=== PATIENT | female | born 1955 | race Two or more races ===

== ENCOUNTER → 2020-02-09 13:20 | Outpatient (BNVA) | payer MEDICAID, SELFPAY | PROVIDERS: PCP Family Medicine; Referring Provider Family Medicine; Visit Provider Internal Medicine | DX: I49.3 Ventricular premature depolarization (principal); R00.2 Palpitations; R07.2 Precordial pain | CPT/HCPCS: 93005; 99212 ==

== ENCOUNTER → 2020-02-17 07:50 | Outpatient (REF) | payer MEDICAID, SELFPAY ==
--- NOTE | 2020-02-17 | NM_ITS ---
EXERCISE MYOCARDIAL PERFUSION STUDY INDICATION: Chest pain, PVCs, assess for coronary disease ischemia TECHNIQUE: The patient was brought in for an exercise perfusion study on 02/17/2020. Patient performed exercise as per Sarbjit protocol and was injected 30 mCi of sestamibi once target heart rate was achieved. Images were obtained using the SPECT gamma camera interlaced with the gating device. Images were obtained in supine position. Resting perfusion study was performed on 02/20/2020. Patient was administered 30 mCi of sestamibi intravenously at rest. Images were then obtained in supine position. Total DLP 92mGy-cm. Images were processed with the software and compared side to side in short axis, horizontal long axis and vertical long axis views. FINDINGS: Raw images were reviewed. The stress perfusion study showed mildly diminished tracer uptake in the distal anterolateral wall. With CT attenuation correction, this improves significantly suggestive of soft tissue attenuation artifact. Gating not done during stress due to PVCs. Resting study shows no significant perfusion abnormality. Gating at rest reveals normal wall motion with ejection fraction at 54%. The findings are consistent with no reversible or fixed perfusion abnormality. NM/NM dwight perf SPECT rest & str IMPRESSION: 1. Myocardial perfusion imaging study shows likely normal myocardial perfusion. No definitive evidence of any ischemia or infarction. 2. Gated LVEF is 52% during rest. Gating not performed during stress due to PVCs. EKG component of the test reported separately.
--- NOTE | 2020-02-17 08:00 | CA_ITS ---
Acquisition Time: 2020-02-17 09:23:13 Total Exercise Time: 00:06:10 Test Indications: Chest Pain Medications: ASA FLECAINIDE LOSARTAN METOPROLOL OMEPRAZOLE PRAVASTATIN LYRICA Protocol: HERNAN Max HR: 134 BPM 85% of Pred: 156 BPM Max BP: 154/082 mmHG Max Work Load: 6.9 METS Stress nuclear using Hernan protocol, total of 6 min 10 sec. Pt tolerated well, Denies any anginal sx. reports palpitations (EKG shows frequent PVC's, bigeminy). No ischemic changes seen on EKG tracing. Nuclear images to follow. Normotensive response to exercise. Test reviewed with Dr. Moon. Referred By: Bishnu Cesar Overread By: Jason Bajwa
== END ==
LOC: HO.CARD 07:50
PROVIDERS: PCP Family Medicine; Visit Provider Internal Medicine
DX: R07.2 Precordial pain (principal)
CPT/HCPCS: 78452; 93017; A9500

== ENCOUNTER 2020-06-13 13:58 | Outpatient (REF) | payer MEDICAID, SELFPAY ==
--- NOTE | 2020-06-13 14:30 | MHC.AU.P13 ---
Hearing Instrument Problem: Date of Visit: 06/13/20 Right Ear: Sole Scraper: Phonak Model: CaptimoEO B50-R Serial Number: [id number] Repair Warranty: Loss and Damage Warranty: Battery Size: Rechargeable Color: [place] Community Representative: 1P Type of Mold: SLIM TIP Type of Wax Guard: CERUSTOP Left Ear: Sole Scraper: Phonak Model: CaptimoEO B50-R Serial Number: [id number] RepairWarranty: Loss and Damage Warranty: Battery Size: Rechargeable Color: [place] Community Representative: 1P Type of Mold: SLIM TIP Type of Wax Guard: CERUSTOP Summary: Patient dropped off right hearing aid - dry house attendant broken at tip - slim tip cracked when trying to remove. Faxed order to [employer] for new custom slim tip (using scan on file) and new 1P dry house attendant. Hearing aid in repair drawer. Will bill [facility] earmold and dry house attendant when in. Recommendations: Recommendations: Patient will be contacted when materials have arrived. Signature: Provider: TYREE Chavez-
== END 2020-06-13 13:59 | disposition home or self-care (01) ==
LOC: HO.HAP 13:58
PROVIDERS: Visit Provider Family Medicine
DX: Z13.89 Encounter for screening for other disorder (principal)

== ENCOUNTER 2020-06-21 12:51 | Outpatient (REF) | payer MEDICAID, SELFPAY | END 2020-06-21 12:52 | disposition home or self-care (01) | LOC: HO.HAP 12:51 | PROVIDERS: Visit Provider Family Medicine | DX: Z46.1 Encounter for fitting and adjustment of hearing aid (principal) | CPT/HCPCS: V5264 ==

== ENCOUNTER 2020-06-21 12:58 | Outpatient (REF) | payer SELFPAY | END 2020-06-21 12:59 | disposition home or self-care (01) | LOC: HO.HAP 12:58 | PROVIDERS: Visit Provider Family Medicine | DX: Z46.1 Encounter for fitting and adjustment of hearing aid (principal) | CPT/HCPCS: V5266 ==

== ENCOUNTER 2020-07-05 15:52 | Outpatient (REF) | payer MEDICAID, SELFPAY ==
--- NOTE | ~2020-07-05 | XR_ITS ---
EXAMINATION: THORACIC AND LUMBAR SPINE. CLINICAL INFORMATION: Pain. COMPARISON: None. TECHNIQUE: 3 views lumbar spine and 3 views dorsal spine. FINDINGS: LUMBAR SPINE: There is maintained lumbar lordosis. The vertebral heights, alignment and disc heights are normal. There is no visible acute fracture, dislocation or subluxation. No lytic or sclerotic process seen. The paravertebral soft tissues are normal. DORSAL SPINE: There is normal thoracic kyphosis. The vertebral heights and alignment is normal. There is moderate spondylosis dorsal spine. No lytic or sclerotic process seen. The paravertebral soft tissues are normal. XR/XR lumbar spine 2-3V IMPRESSION: Unremarkable lumbar spine exam. Moderate dorsal spondylosis throughout thoracic spine. No lytic or sclerotic process seen.
--- NOTE | ~2020-07-05 | XR_ITS ---
EXAMINATION: THORACIC AND LUMBAR SPINE. CLINICAL INFORMATION: Pain. COMPARISON: None. TECHNIQUE: 3 views lumbar spine and 3 views dorsal spine. FINDINGS: LUMBAR SPINE: There is maintained lumbar lordosis. The vertebral heights, alignment and disc heights are normal. There is no visible acute fracture, dislocation or subluxation. No lytic or sclerotic process seen. The paravertebral soft tissues are normal. DORSAL SPINE: There is normal thoracic kyphosis. The vertebral heights and alignment is normal. There is moderate spondylosis dorsal spine. No lytic or sclerotic process seen. The paravertebral soft tissues are normal. XR/XR thoracic spine 2V IMPRESSION: Unremarkable lumbar spine exam. Moderate dorsal spondylosis throughout thoracic spine. No lytic or sclerotic process seen.
[2020-07-05 17:52] LABS: MANUAL DIFF FLAG NO
[2020-07-05 17:54] LABS: Basophils Absolute Auto 0.1 X10*3/uL (0.0-0.2); Basophils Percent Auto 1.1 % (0-2); Eosinophils Absolute Auto 0.2 X10*3/uL (0.0-0.4); Eosinophils Percent Auto 2.6 % (0-4); Hematocrit 44.7 % (37-47); Hemoglobin 14.5 g/dl (12.0-16.0); Imm Gran Abs Auto 0.03 X10*3/uL (0.00-0.03); Imm Gran Pct Auto 0.4 % (0.0-0.4); Lymphocytes Absolute Auto 2.3 X10*3/uL (1.2-4.9); Mean Corpuscular HGB Conc 32.4 g/dl (31.0-35.0); Mean Corpuscular Hemoglobin 28.4 pg (27.0-33.0); Mean Corpuscular Volume 87.5 fL (80-98); Mean Platelet Volume 10.4 fL (9.4-12.3); Monocytes Absolute Auto 0.7 X10*3/uL (0.1-1.2); Neutrophils Absolute Auto 5.1 X10*3/uL (2.0-8.3); Neutrophils Percent Auto 60.9 % (45-73); Platelet Count 284 X10*3/uL (160-400); Red Blood Count 5.11 X10*6/uL (4.20-5.50); Red Cell Distribution Width 13.3 % (11.0-16.0); White Blood Count 8.3 X10*3/uL (4.8-10.8)
[2020-07-05 18:02] LABS: Estimated Average Glucose 146 mg/dL; Hemoglobin A1c % 6.7 %
[2020-07-05 18:15] LABS: Alanine Aminotransferase 30 U/L (0-31); Albumin Level 4.2 g/dL (3.5-5.0); Alkaline Phosphatase 90 U/L (39-117); Amylase 47 U/L (28-100); Anion Gap 15 (12-20); Aspartate Amino Transferase 23 U/L (5-31); Bilirubin Total 0.2 mg/dL (0.0-1.0); Blood Urea Nitrogen 20 mg/dL (9-16); Calcium 9.4 mg/dL (8.4-10.2); Carbon Dioxide 26 mmol/L (22-29); Chloride 106 mmol/L (96-108); Estimated Glomerular Filt Rate > 60; Glucose Random 98 mg/dL (60-115); Lactate Dehydrogenase 171 U/L (122-220); Lipase 29 U/L (8-78); Potassium 4.5 mmol/L (3.3-5.1); Sodium 142 mmol/L (135-145); Total Protein 6.9 g/dL (6.5-8.0)
[2020-07-05 18:19] LABS: Glucose Urine UA NEG (NEG); Leukocyte Esterase Urine NEG (NEG); Nitrite Urine NEG (NEG); PH 6.5 (5.0-8.0); Urine Blood NEG (NEG); Urine Ketones NEG (NEG); Urine Protein NEG (NEG-TRACE)
[2020-07-05 18:22] LABS: Appearance Urine CLEAR; Color Urine YELLOW
[2020-07-05 18:35] LABS: TSH reflex Free T4 1.22 uIU/mL (0.32-4.0)
[2020-07-09 17:22] LABS: Gliadin Deamidated IgA Ab 4 Units; Gliadin Deamidated IgG Ab 2 Units; Transglutaminase Ab IgG 1 U/mL; Transglutaminase IgA 1 U/mL
[2020-07-10 17:37] LABS: Parathyroid Hormone Related Pr 15 pg/mL (14-27)
== END 2020-07-05 15:53 | disposition home or self-care (01) ==
LOC: HO.LAB 15:52
PROVIDERS: PCP Family Medicine; Visit Provider Nurse Practitioner
DX: R10.11 Right upper quadrant pain (principal); R14.0 Abdominal distension (gaseous); K21.9 Gastro-esophageal reflux disease without esophagitis; K59.04 Chronic idiopathic constipation; K64.2 Third degree hemorrhoids; E13.9 Other specified diabetes mellitus without complications; E34.9 Endocrine disorder, unspecified; M54.9 Dorsalgia, unspecified; Z79.899 Other long term (current) drug therapy
CPT/HCPCS: 36415; 72070; 72100; 80053; 81003; 82150; 83036; 83516; 83519; 83615; 83690; 84443; 85025; 86140; 99212

== ENCOUNTER 2020-07-10 09:08 | Outpatient (REF) | payer MEDICAID, SELFPAY ==
--- NOTE | ~2020-07-10 | US_ITS ---
EXAMINATION: US ABDOMEN COMPLETE CLINICAL INFORMATION: Right upper quadrant pain. COMPARISON: CT abdomen and pelvis 07/29/2019. TECHNIQUE: Real-time imaging of the abdominal viscera. FINDINGS: PANCREAS: Normal. ABDOMINAL AORTA: The proximal, mid, and distal segments are normal in caliber. INFERIOR VENA CAVA: Visualized portions are normal. LIVER: The liver is enlarged with increased echogenicity. There is focal fatty sparing near the gallbladder. The liver contour is normal. No focal hepatic lesion. There is no intrahepatic biliary duct dilatation seen. GALLBLADDER: Normal. The gallbladder is physiologically distended without evidence of stones, sludge, polyps, wall thickening or pericholecystic fluid. COMMON BILE DUCT: Normal in caliber measuring 0.3 cm in diameter. RIGHT KIDNEY: Normal. No hydronephrosis. No renal calculi or focal parenchymal lesions. The kidney measures 10.8 cm in maximum dimension. LEFT KIDNEY: There is an anechoic cyst in the upper pole measuring 0.8 x 0.6 x 0.8 cm. No hydronephrosis or renal calculi. The kidney measures 11.4 cm in maximum dimension. SPLEEN: Normal. The spleen measures 10.8 cm in maximum dimension. FREE FLUID: None. US/US abdomen complete IMPRESSION: Hepatomegaly with diffuse increased liver echogenicity and focal fatty sparing near the gallbladder. Anechoic cyst upper pole left kidney.
== END 2020-07-10 09:09 | disposition home or self-care (01) ==
LOC: HO.US 09:08
PROVIDERS: PCP Family Medicine; Visit Provider Nurse Practitioner
DX: R10.11 Right upper quadrant pain (principal); M54.9 Dorsalgia, unspecified; E13.9 Other specified diabetes mellitus without complications; E34.9 Endocrine disorder, unspecified; R14.0 Abdominal distension (gaseous); K59.04 Chronic idiopathic constipation
CPT/HCPCS: 76700

== ENCOUNTER → 2020-07-27 08:14 | Outpatient (BNVA) | payer MEDICAID, SELFPAY | PROVIDERS: PCP Family Medicine; Visit Provider Nurse Practitioner | DX: R14.0 Abdominal distension (gaseous) (principal); K64.9 Unspecified hemorrhoids; K59.04 Chronic idiopathic constipation; K21.9 Gastro-esophageal reflux disease without esophagitis; R10.11 Right upper quadrant pain | CPT/HCPCS: 99212 ==

== ENCOUNTER → 2020-08-06 14:21 | Outpatient (BNVA) | payer MEDICAID, SELFPAY | PROVIDERS: PCP Family Medicine; Visit Provider Internal Medicine | DX: I49.3 Ventricular premature depolarization (principal); R07.2 Precordial pain; Z51.81 Encounter for therapeutic drug level monitoring; Z79.899 Other long term (current) drug therapy | CPT/HCPCS: 93005; 99212 ==

== ENCOUNTER → 2020-08-09 15:37 | Outpatient (BNVA) | payer MEDICAID, SELFPAY | PROVIDERS: PCP Family Medicine; Visit Provider Student in an Organized Health Care Education/Training Program | DX: M54.42 Lumbago with sciatica, left side (principal); G89.29 Other chronic pain | CPT/HCPCS: 99212 ==

== ENCOUNTER → 2020-08-30 13:42 | Outpatient (BNVA) | payer MEDICAID, SELFPAY | PROVIDERS: Visit Provider Surgery | DX: K64.8 Other hemorrhoids (principal); K59.00 Constipation, unspecified; Z79.82 Long term (current) use of aspirin; Z79.899 Other long term (current) drug therapy | CPT/HCPCS: 99203; 46600 ==

== ENCOUNTER 2020-09-30 16:56 | Emergency (ER) | payer MEDICAID, SELFPAY ==
--- NOTE | ~2020-09-30 | XR_ITS ---
EXAMINATION: XR HAND, RIGHT CLINICAL INFORMATION: Injury to right ring finger. COMPARISON: None TECHNIQUE: PA, lateral, and oblique views of the right hand. FINDINGS: Oblique fracture at the base of proximal phalanx extending to the MCP joint with minimal displacement. Mild soft tissue swelling. There is loss of PIP and DIP joint space of all digits with mild soft tissue swelling. No additional fractures seen. XR/XR hand RT min 3V IMPRESSION: Nondisplaced oblique fracture proximal end proximal phalanx fourth digit with intra-articular extension. There is mild soft tissue swelling. Degenerative arthritic changes PIP and DIP joints second through fifth digits.
[2020-09-30 16:58] VITALS: BP 113/71; PULSE 79; RESP 18; TEMP 36.7; O2SAT 96; BMI 32.0
--- NOTE | 2020-09-30 18:31 | ED.EXTPRO ---
HPI - Extremity Problem General Chief complaint: Extremity Injury, Upper Stated complaint: wrist pain Time Seen by Provider: 09/30/20 17:55 History of Present Illness HPI Narrative: Patient complains of right 4th finger pain as well as some right hand pain after hitting it into an object of furniture by accident yesterday, no numbness weakness or tingling Related Data Home Medications Medication Instructions Recorded Confirmed aspirin 81 mg tablet,delayed 81 mg PO DAILY 02/09/20 08/30/20 release flecainide 100 mg tablet 100 mg PO Q12H 02/09/20 08/30/20 loratadine 10 mg tablet 10 mg PO DAILY 02/09/20 08/30/20 montelukast 10 mg tablet 10 mg PO DAILY 02/09/20 08/30/20 pravastatin 80 mg tablet 80 mg PO DAILY 02/09/20 08/30/20 pregabalin 50 mg capsule 50 mg PO BID 02/09/20 08/30/20 hydrocortisone 2.5 % topical cream [address] BID-QID PRN 03/26/20 08/30/20 with perineal applicator omeprazole 20 mg capsule,delayed 20 mg PO BID cap 07/05/20 08/30/20 release hydrocortisone acetate [address] TID ea 08/30/20 08/30/20 rectal suppository ksfwgk-sbzbcqpz-yyfjilr 1 cap PO BID 08/30/20 08/30/20 24,000-76,000-120,000 unit capsule,delayed rel nitroglycerin 0.4 % (w/w) rectal [address] BID 08/30/20 08/30/20 ointment Previous Rx's Medication Instructions Recorded metoprolol succinate 50 mg 100 mg PO QAM #60 tab 06/05/20 tablet,extended release 24 hr dicyclomine 20 mg tablet 20 mg PO TID 30 Days #90 tab 07/05/20 obkebk-ndebdulk-irqhrhj 1 cap PO QID 30 Days #120 cap 07/05/20 24,000-76,000-120,000 unit capsule,delayed rel lubiprostone 24 mcg capsule 24 mcg PO BID 30 Days #60 cap 07/05/20 simethicone 180 mg capsule 180 mg PO QID 30 Days #120 cap 07/05/20 Allergies Allergy/AdvReac Type Severity Reaction Status Date / Time peanut Allergy Severe angioedema Verified 08/30/20 13:50 lisinopril [LISINOPRIL] Allergy Intermediate RASH, cough Verified 08/30/20 13:50 zoster vaccine live Allergy Intermediate LOCALIZED Verified 08/30/20 13:50 [SHINGLES VACCINE] REDNESS, SWELLING, FEVER,COUGH latex [LATEX] Allergy Unknown RASH Verified 08/30/20 13:50 pineapple [PINEAPPLE] Allergy Unknown RASH Verified 08/30/20 13:50 strawberry [STRAWBERRY] Allergy Unknown RASH Verified 08/30/20 13:50 Review of Systems Review of Systems: Positive for right hand and right 4th finger pain Negatives are no laceration no numbness no weakness no tingling no skin rash Yes all other systems are reviewed and are negative [facility] Past Medical History Source: nursing notes reviewed Medical History (Updated 09/30/20 @ 18:35 by TORREY Tolbert) Hemorrhoids with complication NSVT (nonsustained ventricular tachycardia) PVC (premature ventricular contraction) Surgical History History of esophagogastroduodenoscopy (EGD) History of lumbar laminectomy History of shoulder surgery (~04/29/18) Hx of colonoscopy Family History Family History Father Cardiovascular disease Mother Osteoarthritis Social History Social History Household Members: Spouse Alcohol intake: never Advance Directives: No Advance Directives Information Provided: No Patient : No Physical Exam Vital Signs: Vital Signs: Last Vital Signs Temp 98.0 F 09/30/20 16:58 Pulse 79 09/30/20 16:58 Resp 18 09/30/20 16:58 BP 113/71 09/30/20 16:58 Pulse Ox 96 09/30/20 16:58 Body Mass Index 32.0 General appearance no acute distress Head is normocephalic atraumatic Neck is supple Respiratory no distress Exam of the right hand and wrist the wrist is fully mobile with no tenderness or swelling The right hand has some ecchymosis and tenderness at the base of the 4th finger with pain with movement at the MCP joint, other fingers are normal, skin is intact and neurovascular intact distal with normal tendon function Skin no rash Course Course Course Narrative: X-ray showed a proximal phalanx fracture at the base of the proximal phalanx, finger splint was applied by the [facility] and patient was discharged to follow-up Discharge Plan Discharge Clinical Impression: Finger fracture, right Qualifiers: Encounter type: initial encounter Finger: ring finger Fracture type: closed Phalanx: proximal Patient Disposition: Home, Self-Care Prescriptions: No Action metoprolol succinate 50 mg tablet extended release 24 hr 100 mg PO QAM Qty: 60 RF: 5 aspirin 81 mg tablet,delayed release (DR/EC) 81 mg PO DAILY RF: 0 flecainide 100 mg tablet 100 mg PO Q12H RF: 0 loratadine 10 mg tablet 10 mg PO DAILY RF: 0 pregabalin [Lyrica] 50 mg capsule 50 mg PO BID RF: 0 montelukast 10 mg tablet 10 mg PO DAILY RF: 0 pravastatin 80 mg tablet 80 mg PO DAILY RF: 0 hydrocortisone [Anusol-HC] 2.5 % cream with perineal applicator [address] BID-QID PRNRF: 0 Amitiza 24 mcg capsule 24 mcg PO BID 30 Days Qty: 60 RF: 6 Creon 24,000-76,000 -120,000 unit capsule,delayed release(DR/EC) 1 cap PO QID 30 Days Qty: 120 RF: 1 simethicone 180 mg capsule 180 mg PO QID 30 Days Qty: 120 RF: 3 omeprazole 20 mg capsule,delayed release(DR/EC) 20 mg PO BID RF: 0 dicyclomine 20 mg tablet 20 mg PO TID 30 Days Qty: 90 RF: 6 Creon 24,000-76,000 -120,000 unit capsule,delayed release(DR/EC) 1 cap PO BID RF: 0 hydrocortisone acetate 25 mg suppository [address] TID RF: 0 Rectiv 0.4 % (w/w) ointment [address] BID RF: 0
--- NOTE | 2020-09-30 18:51 | PC.NURSE ---
PT HAS FINGER SPLINT APPLIED TO RIGHT RING FINGER BY PCT.
== END 2020-09-30 19:01 | disposition home or self-care (01) ==
PROVIDERS: Emergency Provider Emergency Medicine; PCP Family Medicine
DX: S62.614A Displaced fracture of proximal phalanx of right ring finger, initial encounter for closed fracture (principal); W22.03XA Walked into furniture, initial encounter; Y93.9 Activity, unspecified; Y92.9 Unspecified place or not applicable; Y99.9 Unspecified external cause status
CPT/HCPCS: 29130; 73130; 99283

== ENCOUNTER 2020-10-03 13:02 | Outpatient (REF) | payer MEDICAID, SELFPAY ==
--- NOTE | ~2020-10-03 | XR_ITS ---
EXAMINATION: XR HAND, RIGHT CLINICAL INFORMATION: Pain right and COMPARISON: None TECHNIQUE: PA, lateral, and oblique views of the right hand. FINDINGS: There is a fracture base of proximal phalanx fourth digit with intra-articular extension. It is stable. No additional fractures seen. There is loss of PIP and DIP joint space of all digits. There is deformity of phalangeal tuft third digit unchanged. The soft tissues are normal. XR/XR hand RT min 3V IMPRESSION: Oblique fracture base of proximal phalanx fourth digit with intra-articular extension, stable.
== END 2020-10-03 13:03 | disposition home or self-care (01) ==
LOC: HO.XRAY 13:02
PROVIDERS: PCP Family Medicine; Visit Provider Orthopaedic Surgery
DX: S62.614A Displaced fracture of proximal phalanx of right ring finger, initial encounter for closed fracture (principal)
CPT/HCPCS: 73130; 99202

== ENCOUNTER 2020-10-16 21:35 | Emergency (ER) | payer MEDICAID, SELFPAY ==
--- NOTE | ~2020-10-16 | CT_ITS ---
EXAMINATION: CT HEAD WITHOUT CONTRAST CLINICAL INFORMATION: Right-sided headache. Status post trauma. COMPARISON: CT head June 14, 2019 TECHNIQUE: Contiguous axial imaging was performed from the skull base to vertex without intravenous administration of contrast. Coronal and sagittal reformatted images are performed at CT scanner This CT examination was performed using dose optimization techniques as appropriate, variously including the following: *Automated exposure control *Adjustment of mA and/or kV according to patient size (this includes techniques or standardized protocols for targeted exams where dose is matched to indication/reason for exam; i.e. extremities or head) *Use of iterative reconstruction technique DLP: 672 mGy-cm FINDINGS: There is no evidence of acute intracranial hemorrhage or territorial infarction. No abnormal mass effect or midline shift is seen. Paige to white matter differentiation is well preserved. No extra-axial fluid collections are identified. The ventricles are normal in size. There is no abnormal attenuation within the brain parenchyma. The osseous structures and soft tissues are normal. The mastoid air cells and visualized portions of the paranasal sinuses are well aerated. CT/CT head/brain wo con IMPRESSION: No acute intracranial pathology.
[2020-10-16 21:39] VITALS: BP 161/57; PULSE 48; RESP 16; TEMP 37; O2SAT 98; BMI 31.3
[2020-10-16 22:15] VITALS: BP 139/88; PULSE 79; RESP 18; TEMP 37; O2SAT 96
--- NOTE | 2020-10-16 22:18 | PC.NURSE ---
patient a&ox3, pt states she has 7/10 pain to the right side. pt had head trauma 09/11/20 which she states the pain has not resolved, pt called her doctor who advised her to come to the ed to be seen.
--- NOTE | 2020-10-16 22:22 | ED_ITS ---
HPI - Headache General Chief Complaint: Headache Stated Complaint: migraine Time Seen by Provider: 10/16/20 22:16 Source: patient Mode of arrival: ambulatory Limitations: no limitations History of Present Illness HPI Narrative: 65 yo female with history of DM, chronic back pain, sciatica, NSVT, GERD who presents to the ER with right sided headaches for the last 5 weeks. She reports on September 11 she slid in her kitchen floor and hit her head against the door frame. She had immediate pain and a large hematoma on the upper right side of her forehead. She did not lose consciousness. She is not on anticoagulation or ASA. She reports a few days later she had a black eye. She never saw her doctor or went to an ER at the time. She reports ongoing right sided headaches, worse when bending down or trying to sleep at night. Her pain is 7/10 today. She called her doctor today who instructed her to come to the ER for a CT scan of her head. She has not taken any medications for the pain. MD elicited complaint: headache Pertinent past history: recent trauma Onset (ago): week(s) Onset description: gradually Location: right Severity: moderate Pain scale (0-10): 7 Quality & Timing: aching and throbbing Exacerbating factors: movement of head/neck and noise Relieving factors: dark room Context: recent head injury Treatments prior to arrival: none Related Data Home Medications Medication Instructions Recorded Confirmed aspirin 81 mg tablet,delayed 81 mg PO DAILY 02/09/20 08/30/20 release flecainide 100 mg tablet 100 mg PO Q12H 02/09/20 08/30/20 loratadine 10 mg tablet 10 mg PO DAILY 02/09/20 08/30/20 montelukast 10 mg tablet 10 mg PO DAILY 02/09/20 08/30/20 pravastatin 80 mg tablet 80 mg PO DAILY 02/09/20 08/30/20 pregabalin 50 mg capsule 50 mg PO BID 02/09/20 08/30/20 hydrocortisone 2.5 % topical cream 1 appl OR BID-QID PRN 03/26/20 08/30/20 with perineal applicator omeprazole 20 mg capsule,delayed 20 mg PO BID cap 07/05/20 08/30/20 release hydrocortisone acetate 25 mg 25 mg OR TID ea 08/30/20 08/30/20 rectal suppository ltunqs-xghjwlme-upubebl 1 cap PO BID 08/30/20 08/30/20 24,000-76,000-120,000 unit capsule,delayed rel nitroglycerin 0.4 % (w/w) rectal 1 inch OR BID 08/30/20 08/30/20 ointment Previous Rx's Medication Instructions Recorded metoprolol succinate 50 mg 100 mg PO QAM #60 tab 06/05/20 tablet,extended release 24 hr dicyclomine 20 mg tablet 20 mg PO TID 30 Days #90 tab 07/05/20 lubiprostone 24 mcg capsule 24 mcg PO BID 30 Days #60 cap 07/05/20 simethicone 180 mg capsule 180 mg PO QID 30 Days #120 cap 07/05/20 wlutzw-iukkuudd-xhoijto 1 cap PO QID #120 cap 10/02/20 24,000-76,000-120,000 unit capsule,delayed rel fyzkayf-xodqoruktkdui-kqbampil 2 tab PO Q6H PRN #10 tab 10/16/20 [Excedrin Migraine] diphenhydramine HCl [Benadryl 50 mg PO Q8H PRN #14 tab 10/16/20 Allergy] metoclopramide HCl [Reglan] 10 mg PO Q6H PRN #10 tab 10/16/20 Allergies Allergy/AdvReac Type Severity Reaction Status Date / Time peanut Allergy Severe angioedema Verified 10/16/20 21:39 lisinopril [LISINOPRIL] Allergy Intermediate RASH, cough Verified 10/16/20 21:39 zoster vaccine live Allergy Intermediate LOCALIZED Verified 10/16/20 21:39 [SHINGLES VACCINE] REDNESS, SWELLING, FEVER,COUGH latex [LATEX] Allergy Unknown RASH Verified 10/16/20 21:39 pineapple [PINEAPPLE] Allergy Unknown RASH Verified 10/16/20 21:39 strawberry [STRAWBERRY] Allergy Unknown RASH Verified 10/16/20 21:39 Review of Systems Review of Systems: Constitutional: No Fever, No Chills ENT/Mouth: No sore throat, No Rhinorrhea, No Swallowing Difficulty Eyes: No Eye Pain, No Swelling, No Redness Cardiovascular: No Chest Pain, No SOB, No Orthopnea, No Edema Respiratory: No Cough, No Sputum, No Wheezing, No dyspnea Gastrointestinal: No Nausea, No Vomiting, No Diarrhea, No abdominal Pain Genitourinary: No Dysuria, No Urinary Frequency, No Hematuria Musculoskeletal: No joint pain, No Myalgias Skin: No Skin Lesions, No rash Neuro: No Weakness, No Numbness, No Dizziness, + Headache Psych: + Anxiety/Panic, No Depression Heme/Lymph: No Bruising, No Lymphadenopathy PMFSH Past Medical History Attestation statement: The following information was validated with the patient. Medical History Hemorrhoids with complication NSVT (nonsustained ventricular tachycardia) PVC (premature ventricular contraction) Surgical History History of esophagogastroduodenoscopy (EGD) History of lumbar laminectomy History of shoulder surgery (~04/29/18) Hx of colonoscopy Family History Family History Father Cardiovascular disease Mother Osteoarthritis Social History Social History (Updated 10/03/20 @ 14:36 by Abbi Limon) Household Members: Spouse Alcohol intake: never Patient Tobacco Use Status: Never used Tobacco Use of substances other than those prescribed or required for medical reasons: No Advance Directives: No Advance Directives Information Provided: Yes Current occupational status: unemployed Current occupation: rt handed Physical Exam Vital Signs: Vital Signs: Last Vital Signs Temp 98.6 F 10/16/20 22:15 Pulse 79 10/16/20 22:15 Resp 18 10/16/20 22:15 BP 139/88 10/16/20 22:15 Pulse Ox 96 10/16/20 22:15 Body Mass Index 31.3 Appearance: Alert. Oriented X3. No acute distress. Head: normocephalic, atraumatic. right parietal area with tenderness, no swelling or palpable skull fracture. Eyes: Pupils equal, round and reactive to light. EOMI, no nystagmus. ENT: Pharynx normal. Normal TM's bilaterally. Neck: Normal inspection. Neck supple. CVS: Normal heart rate and rhythm. Pulses normal. Respiratory: No respiratory distress. Breath sounds normal. Abdomen: Soft and nontender. +BS x4 Skin: Skin warm and dry. Normal skin color. Normal skin turgor. No rashes. Extremities: No lower extremity edema. Neuro: Oriented X 3. No motor deficit. No sensory deficit. Course Course Course Narrative: 65 y/o female presenting with 5 weeks of right sided headaches after trauma. Exam is nonfocal. Doubt ICH or traumatic injury but will get CT scan for patient's reassurance. PO tylenol ordered. Will reassess. Reevaluation(s) Reevaluation #1: CT head is normal. Headache improved with tylenol. She is resting comfortably watching TV. She is stable for discharge home with PO me dications for headaches and f/u with Neurology for further management. MDM - Headache Differential Diagnosis Differential diagnosis: Likely migraine, tension headache, subarachnoid hemorrhage, headache, meningitis, sinusitis and postconcussion syndrome Critical Care Time Critical Care Time Critical Care Time: No Discharge Plan Discharge Clinical Impression: Headache Patient Disposition: Home, Self-Care Instructions: Chronic Post Traumatic Headache (ED) Additional Instructions: Your CT scan was normal today. Recommend trial of combination of the below prescribed medications when you have a headache. Follow up with your doctor this week. Recommend following up with Neurology for further workup if headaches persist. If you develop new or worsening symptoms call 911 or come back to the ER for further evaluation. Prescriptions: New Excedrin Migraine 250-250-65 mg tablet 2 tab PO Q6H PRN (Reason: pain) Qty: 10 RF: 0 metoclopramide HCl [Reglan] 10 mg tablet 10 mg PO Q6H PRN (Reason: headache) Qty: 10 RF: 0 diphenhydramine HCl [Benadryl Allergy] 25 mg tablet 50 mg PO Q8H PRN (Reason: headache) Qty: 14 RF: 0 No Action metoprolol succinate 50 mg tablet extended release 24 hr 100 mg PO QAM Qty: 60 RF: 5 gblhih-qkkcfamd-unuijrt [Creon] 24,000-76,000 -120,000 unit capsule,delayed release(DR/EC) 1 cap PO QID Qty: 120 RF: 4 aspirin 81 mg tablet,delayed release (DR/EC) 81 mg PO DAILY RF: 0 flecainide 100 mg tablet 100 mg PO Q12H RF: 0 loratadine 10 mg tablet 10 mg PO DAILY RF: 0 pregabalin [Lyrica] 50 mg capsule 50 mg PO BID RF: 0 montelukast 10 mg tablet 10 mg PO DAILY RF: 0 pravastatin 80 mg tablet 80 mg PO DAILY RF: 0 hydrocortisone [Anusol-HC] 2.5 % cream with perineal applicator 1 appl OR BID-QID PRNRF: 0 Amitiza 24 mcg capsule 24 mcg PO BID 30 Days Qty: 60 RF: 6 simethicone 180 mg capsule 180 mg PO QID 30 Days Qty: 120 RF: 3 omeprazole 20 mg capsule,delayed release(DR/EC) 20 mg PO BID RF: 0 dicyclomine 20 mg tablet 20 mg PO TID 30 Days Qty: 90 RF: 6 Creon 24,000-76,000 -120,000 unit capsule,delayed release(DR/EC) 1 cap PO BID RF: 0 hydrocortisone acetate 25 mg suppository 25 mg OR TID RF: 0 Rectiv 0.4 % (w/w) ointment 1 inch OR BID RF: 0 Referrals: Gilda Garg MD [Physician] - 2 weeks (headaches) Interventions: ED Discharge Assessment Last Done: 10/16/20 23:56 Discharge Date/Time: 10/16/20 23:57
[2020-10-16] MEDS: Acetaminophen 325 MG TABLET 975 MG PO (22:36)
== END 2020-10-16 23:57 | disposition home or self-care (01) ==
PROVIDERS: Emergency Provider Emergency Medicine Emergency Medical Services; PCP Family Medicine
DX: R51.9 Headache, unspecified (principal)
CPT/HCPCS: 70450; 99284

== ENCOUNTER 2020-11-07 09:25 | Outpatient (REF) | payer MEDICAID, SELFPAY ==
--- NOTE | ~2020-11-07 | XR_ITS ---
EXAMINATION: XR HAND, RIGHT CLINICAL INFORMATION: Pain in right hand. COMPARISON: 10/03/2020 TECHNIQUE: PA, lateral, and oblique views of the right hand. FINDINGS: There is no significant change in appearance of intra-articular fracture base of the 4th proximal phalanx. There is minimal periosteal new bone formation now seen compared to 10/03/2020. Joint spaces are maintained. XR/XR hand RT min 3V IMPRESSION: Healing intra-articular fracture base of the 4th proximal phalanx without significant change in alignment.
--- NOTE | ~2020-11-07 | XR_ITS ---
EXAMINATION: XR HAND, RIGHT CLINICAL INFORMATION: Fracture. COMPARISON: Most recent radiograph 11/07/2020 TECHNIQUE: PA, lateral, and oblique views of the right hand. FINDINGS: Minimally displaced intra-articular fracture through the radial base of the proximal phalanx of the ring finger, unchanged. Minimal callus unchanged. The remaining bones, joints and soft tissues are unremarkable. XR/XR hand RT min 3V IMPRESSION: Unchanged intra-articular fracture of the base of the proximal phalanx of the ring finger.
== END 2020-11-07 09:26 | disposition home or self-care (01) ==
LOC: HO.HOSX 09:25
PROVIDERS: PCP Family Medicine; Visit Provider Orthopaedic Surgery
DX: S62.614D Displaced fracture of proximal phalanx of right ring finger, subsequent encounter for fracture with routine healing (principal)
CPT/HCPCS: 73130; 99212

== ENCOUNTER 2021-09-18 20:21 | Inpatient (IN) | payer MEDICARE, MEDICAID, SELFPAY ==
--- NOTE | ~2021-09-18 | XR_ITS ---
EXAMINATION: PORTABLE CHEST 1 VIEW CLINICAL INFORMATION: cough . COMPARISON: 10/24/2019. TECHNIQUE: Portable frontal view of the chest was obtained. FINDINGS: The lungs are well expanded. No focal infiltrate, effusion, edema, or pneumothorax. Cardiac and mediastinal silhouettes are within normal limits for technique. No acute bony abnormality seen. XR/XR chest 1V IMPRESSION: No evidence of acute disease.
--- NOTE | ~2021-09-18 | CT_ITS ---
EXAMINATION: CT CHEST WITHOUT CONTRAST CLINICAL INFORMATION: Chest pain COMPARISON: CT chest dated 05/22/2017 TECHNIQUE: Multidetector volumetric CT imaging of the chest was done. Axial MIP volume rendering provided. Sagittal and coronal reformatted images were obtained. This CT examination was performed using dose optimization techniques as appropriate, variously including the following: *Automated exposure control *Adjustment of mA and/or kV according to patient size (this includes techniques or standardized protocols for targeted exams where dose is matched to indication/reason for exam; i.e. extremities or head) *Use of iterative reconstruction technique DLP: 311 mGy-cm FINDINGS: LUNGS / PLEURA: No parenchymal consolidation, pneumonitis or evidence of interstitial lung disease. Central airways are patent. No significant bronchial wall thickening or bronchiectasis. Stable 2 mm nodule at the. No pleural effusion or pneumothorax. No pleural mass or thickening. MEDIASTINUM / LENNIE: Normal heart size. No pericardial effusion. Great vessels normal caliber. Triple vessel coronary calcifications. No mediastinal, hilar or supraclavicular lymphadenopathy. Small sliding-type hiatal hernia. CHEST WALL / AXILLA: No axillary lymphadenopathy. Chest wall unremarkable. UPPER ABDOMEN: Unremarkable. OSSEOUS STRUCTURES: No acute or suspicious osseous abnormalities. Ossific density inferior to the right humeral head, possibly spotty within the glenohumeral joint, all avulsion fracture involving the glenoid. CT/CT chest wo con IMPRESSION: No acute findings. Triple vessel coronary calcifications
--- NOTE | ~2021-09-18 | CT_ITS ---
EXAMINATION: CT HEAD WITHOUT CONTRAST CLINICAL INFORMATION: Severe headache COMPARISON: 10/16/2020 TECHNIQUE: Contiguous axial imaging was performed from the skull base to vertex without intravenous administration of contrast. This CT examination was performed using dose optimization techniques as appropriate, variously including the following: *Automated exposure control *Adjustment of mA and/or kV according to patient size (this includes techniques or standardized protocols for targeted exams where dose is matched to indication/reason for exam; i.e. extremities or head) *Use of iterative reconstruction technique DLP: 638 mGy-cm FINDINGS: There is no evidence of acute intracranial hemorrhage or territorial infarction. No abnormal mass effect or midline shift is seen. [place] to white matter differentiation is well preserved. No extra-axial fluid collections are identified. The ventricles are normal in size. There is no abnormal attenuation within the brain parenchyma. Cavernous carotid calcifications. The osseous structures and soft tissues are normal. The mastoid air cells and visualized portions of the paranasal sinuses are well aerated. CT/CT head/brain wo con IMPRESSION: No acute intracranial pathology.
--- NOTE | 2021-09-18 20:34 | ECG_ITS ---
Test Reason : NEAR SYNCOPE Blood Pressure : / mmHG Vent. Rate : 056 BPM Atrial Rate : 056 BPM P-R Int : 212 ms QRS Dur : 084 ms QT Int : 474 ms P-R-T Axes : 057 051 029 degrees QTc Int : 457 ms Sinus bradycardia with 1st degree A-V block Otherwise normal ECG When compared with ECG of 24-OCT-2019 15:30, Premature ventricular complexes are no longer Present Referred By: Clem Shelby Electronically Signed By:ROSIO MONTERO
[2021-09-18 20:45] VITALS: BP 100/74; BP 95/59; PULSE 64; RESP 16; TEMP 36.8; O2SAT 90; O2SAT 98; BMI 32.3
[2021-09-18 21:35] LABS: MANUAL DIFF FLAG NO
[2021-09-18 21:37] LABS: Basophils Absolute Auto 0.1 X10*3/uL (0.0-0.2); Basophils Percent Auto 0.6 % (0-2); Eosinophils Absolute Auto 0.1 X10*3/uL (0.0-0.4); Eosinophils Percent Auto 0.9 % (0-4); Hematocrit 41.8 % (37.0-47.0); Hemoglobin 13.3 g/dl (12.0-16.0); Imm Gran Abs Auto 0.06 X10*3/uL (0.00-0.03); Imm Gran Pct Auto 0.4 % (0.0-0.4); Lymphocytes Absolute Auto 2.1 X10*3/uL (1.2-4.9); Lymphocytes Percent Auto 13.9 % (20-40); Mean Corpuscular HGB Conc 31.8 g/dl (31.0-35.0); Mean Corpuscular Hemoglobin 27.5 pg (27.0-33.0); Mean Corpuscular Volume 86.4 fL (80.0-98.0); Mean Platelet Volume 10.8 fL (9.4-12.3); Monocytes Absolute Auto 0.9 X10*3/uL (0.1-1.2); Monocytes Percent Auto 5.9 % (2-11); Neutrophils Absolute Auto 11.7 x10*3/uL (2.0-8.3); Neutrophils Percent Auto 78.3 % (45-73); Platelet Count 234 X10*3/uL (160-400); Red Blood Count 4.84 X10*6/uL (4.20-5.50)
[2021-09-18 21:51] VITALS: BP 100/66; BP 105/60; PULSE 56; PULSE 61
[2021-09-18 21:51] LABS: COVID-19 Test Negative (Negative)
[2021-09-18 21:53] VITALS: BP 108/69; PULSE 59
[2021-09-18 22:02] VITALS: BP 108/69; PULSE 59; RESP 16; TEMP 36.8; O2SAT 96
[2021-09-18 22:05] LABS: Alanine Aminotransferase 18 U/L (0-31); Albumin Level 3.7 g/dL (3.5-5.0); Alkaline Phosphatase 80 U/L (39-117); Anion Gap 13 (12-20); Aspartate Amino Transferase 18 U/L (5-31); Bilirubin Total < 0.2 mg/dL (0.0-1.0); Blood Urea Nitrogen 23 mg/dL (9-16); Calcium 9.2 mg/dL (8.4-10.2); Carbon Dioxide 23 mmol/L (22-29); Chloride 107 mmol/L (96-108); Creatinine Clr Calc Pharmacy 47.6; Estimated Glomerular Filt Rate 45; Glucose Random 153 mg/dL (60-115); Potassium 4.4 mmol/L (3.3-5.1); Sodium 139 mmol/L (135-145); Total Protein 6.1 g/dL (6.5-8.0)
[2021-09-18 22:07] LABS: Troponin-I High Sensitivity 415.1 ng/L (<3.5-17.0)
--- NOTE | 2021-09-18 22:30 | ED.SYNCOPE ---
HPI - Syncope General Chief Complaint: Syncope Stated Complaint: weakness Time Seen by Provider: 09/18/21 20:30 Source: patient Mode of arrival: EMS Limitations: no limitations History of Present Illness HPI narrative: Patient is 66 years old with history of PVCs and nonsustained VT on flecainide and beta robert with normal myocardial perfusion scan on 03/02 chest discomfort for last 1 week days radiating to the back chest discomfort was mild dull pain today patient had the same episode and she passed out while having the pain was diaphoretic nauseated also complaining of pain on the right side of the neck posteriorly. On arrival patient's blood pressure was 95/59 pulse rate 64 saturating 98% room air is still complaining of dull chest pain Related Data Home Medications Medication Instructions Recorded Confirmed aspirin 81 mg tablet,delayed 81 mg PO DAILY 02/09/20 08/30/20 release loratadine 10 mg tablet 10 mg PO DAILY 02/09/20 08/30/20 montelukast 10 mg tablet 10 mg PO DAILY 02/09/20 08/30/20 pravastatin 80 mg tablet 80 mg PO DAILY 02/09/20 08/30/20 pregabalin 50 mg capsule (Lyrica) 50 mg PO BID 02/09/20 08/30/20 hydrocortisone 2.5 % topical cream 1 appl [place] BID-QID PRN 03/26/20 08/30/20 with perineal applicator (Anusol-HC) omeprazole 20 mg capsule,delayed 20 mg PO BID 07/05/20 08/30/20 release hydrocortisone acetate 25 mg 25 mg NH TID 08/30/20 08/30/20 rectal suppository zzqkkr-smanrquq-rtombdg 1 cap PO BID 08/30/20 08/30/20 24,000-76,000-120,000 unit capsule,delayed rel (Creon) nitroglycerin 0.4 % (w/w) rectal 1 inch NH BID 08/30/20 08/30/20 ointment (Rectiv) Previous Rx's Medication Instructions Recorded dicyclomine 20 mg tablet 20 mg PO TID 30 days #90 tabs 07/05/20 lubiprostone 24 mcg capsule 24 mcg PO BID 30 days #60 caps 07/05/20 (Amitiza) simethicone 180 mg capsule 180 mg PO QID 30 days #120 caps 07/05/20 vbpyzr-rfyqnwsv-nhdmkbp 1 cap PO QID #120 caps 10/02/20 24,000-76,000-120,000 unit capsule,delayed rel (Creon) wmcmshy-rlzekkgtfqywv-rgzjjyak 250 2 tab PO Q6H PRN pain #10 tabs 10/16/20 mg-250 mg-65 mg tablet (Excedrin Migraine) diphenhydramine HCl 25 mg tablet 50 mg PO Q8H PRN headache #14 tabs 10/16/20 (Benadryl Allergy) metoclopramide HCl 10 mg tablet 10 mg PO Q6H PRN headache #10 tabs 10/16/20 (Reglan) flecainide 100 mg tablet 100 mg PO Q12H 30 days #60 tabs 02/20/21 metoprolol succinate 50 mg 100 mg PO QAM 30 days #60 tabs 02/20/21 tablet,extended release 24 hr Allergies Allergy/AdvReac Type Severity Reaction Status Date / Time peanut Allergy Severe angioedema Verified 09/18/21 20:45 lisinopril [LISINOPRIL] Allergy Intermediate RASH, cough Verified 09/18/21 20:45 zoster vaccine live Allergy Intermediate LOCALIZED Verified 09/18/21 20:45 [SHINGLES VACCINE] REDNESS, SWELLING, FEVER,COUGH latex [LATEX] Allergy Unknown RASH Verified 09/18/21 20:45 pineapple [PINEAPPLE] Allergy Unknown RASH Verified 09/18/21 20:45 strawberry [STRAWBERRY] Allergy Unknown RASH Verified 09/18/21 20:45 Review of Systems Review of Systems: Yes all other systems are reviewed and are negative PMFSH Past Medical History Medical History Hemorrhoids with complication NSVT (nonsustained ventricular tachycardia) PVC (premature ventricular contraction) Surgical History History of esophagogastroduodenoscopy (EGD) History of lumbar laminectomy History of shoulder surgery (~04/29/18) Hx of colonoscopy Family History Family History Father Cardiovascular disease Mother Osteoarthritis Social History Social History Household Members: Spouse Alcohol intake: never Patient Tobacco Use Status: Never used Tobacco Use of substances other than those prescribed or required for medical reasons: No Advance Directives: No Advance Directives Information Provided: No Current occupational status: unemployed Current occupation: rt handed Physical Exam Vital Signs: Vital Signs: Last Vital Signs Temp 98.2 F 09/18/21 22:02 Pulse 67 09/19/21 00:46 Resp 16 09/18/21 23:56 BP 115/67 09/19/21 00:46 Pulse Ox 97 09/19/21 01:38 O2 Del Method 09/19/21 01:38 Oxygen Flow Rate 2 09/18/21 20:45 BMI result Body Mass Index 32.3 Appearance: Alert. Oriented X3. No acute distress. Eyes: PERRLA, No Nystagmus no pallor or icterus ENT: Pharynx normal. Oral Mucosa moist Neck: Normal inspection. Neck supple. CVS: Normal heart rate and rhythm. Pulses normal. No murmurs/ rub or gallop Respiratory: No respiratory distress. Equal air entry bilateral, no wheezing/rales/rhonchi Abdomen: Soft and nontender. Bowel sounds are present, no mass palpable, no CVA tenderness Skin: Skin warm and dry. Normal skin color. Normal skin turgor. Extremities: No lower extremity edema. No calf tenderness Neuro: Oriented X 3. No motor deficit. No sensory deficit.No cerebellar signs , cranial nerves II-XII intact MDM - Syncope MDM Narrative Medical decision making narrative: Patient with chest pain with syncope episode with elevated high sensitive troponin with significant delta change without any acute ischemic changes in the EKG will start patient on heparin drip and admit for non-STEMI Patient's CT chest and CT head is negative D-dimer negative for PE Dr. Cesar patient's cardiology been paged Case discussed Dr. Cesar agreed with the plan for heparin drip evaluate in the morning Differential Diagnosis Differential diagnosis: Likely syncope due to orthostatic hypotension, vasovagal syncope, subarachnoid hemorrhage and pulmonary embolism Medical Records Attestation: I reviewed the patient's medical records. Lab Data Attestation: I reviewed the patient's lab results. Result diagrams: 09/18/21 21:29 09/18/21 21:29 Labs: Lab Results 09/18/21 09/18/21 09/18/21 Range/Units 21:29 21:29 21:29 WBC 15.0 H (4.8-10.8) X10*3/uL RBC 4.84 (4.20-5.50) X10*6/uL Hgb 13.3 (12.0-16.0) g/dl Hct 41.8 (37.0-47.0) % MCV 86.4 (80.0-98.0) fL MCH 27.5 (27.0-33.0) pg MCHC 31.8 (31.0-35.0) g/dl RDW 14.0 (11.0-16.0) % Plt Count 234 (160-400) X10*3/uL MPV 10.8 (9.4-12.3) fL Immature Gran % (Auto) 0.4 (0.0-0.4) % Neut % (Auto) 78.3 H (45-73) % Lymph % (Auto) 13.9 L (20-40) % [place] % (Auto) 5.9 (2-11) % Eos % (Auto) 0.9 (0-4) % Baso % (Auto) 0.6 (0-2) % Lymph # (Auto) 2.1 (1.2-4.9) X10*3/uL [place] # (Auto) 0.9 (0.1-1.2) X10*3/uL Eos # (Auto) 0.1 (0.0-0.4) X10*3/uL Baso # (Auto) 0.1 (0.0-0.2) X10*3/uL Abs Immat Gran (auto) 0.06 H (0.00-0.03) X10*3/uL Absolute Neuts (auto) 11.7 H (2.0-8.3) x10*3/uL Absolute Nucleated RBC 0.000 (0.0-0.012) X10*3/uL Nucleated RBC % (auto) 0.0 (0.0-0.2) /100WBC PT INR APTT D-Dimer High Sensitivty Sodium 139 (135-145) mmol/L Potassium 4.4 (3.3-5.1) mmol/L Chloride 107 (96-108) mmol/L Carbon Dioxide 23 (22-29) mmol/L Anion Gap 13 (12-20) BUN 23 H (9-16) mg/dL Creatinine 1.20 (0.5-1.4) mg/dL Estim Creat Clear Calc 47.6 Estimated GFR 45 Random Glucose 153 H (60-115) mg/dL Calcium 9.2 (8.4-10.2) mg/dL Total Bilirubin < 0.2 (0.0-1.0) mg/dL AST 18 (5-31) U/L ALT 18 (0-31) U/L Alkaline Phosphatase 80 (39-117) U/L Troponin I High Sens 415.1 H* (<3.5-17.0) ng/L Total Protein 6.1 L (6.5-8.0) g/dL Albumin 3.7 (3.5-5.0) g/dL Urine Color Urine Appearance Urine pH (5.0-8.0) Ur Specific [place] (1.005-1.025) Urine Protein (NEG-TRACE) MG/DL Urine Glucose (UA) (NEG) MG/DL Urine Ketones (NEG) MG/DL Urine Blood (NEG) Urine Nitrite (NEG) Ur Leukocyte Esterase (NEG) COVID-19 (CHARLEY) (Negative) COVID-19 Clin Com 09/18/21 09/18/21 09/18/21 Range/Units 21:29 22:25 23:49 WBC (4.8-10.8) X10*3/uL RBC (4.20-5.50) X10*6/uL Hgb (12.0-16.0) g/dl Hct (37.0-47.0) % MCV (80.0-98.0) fL MCH (27.0-33.0) pg MCHC (31.0-35.0) g/dl RDW (11.0-16.0) % Plt Count (160-400) X10*3/uL MPV (9.4-12.3) fL Immature Gran % (Auto) (0.0-0.4) % Neut % (Auto) (45-73) % Lymph % (Auto) (20-40) % [place] % (Auto) (2-11) % Eos % (Auto) (0-4) % Baso % (Auto) (0-2) % Lymph # (Auto) (1.2-4.9) X10*3/uL [place] # (Auto) (0.1-1.2) X10*3/uL Eos # (Auto) (0.0-0.4) X10*3/uL Baso # (Auto) (0.0-0.2) X10*3/uL Abs Immat Gran (auto) (0.00-0.03) X10*3/uL Absolute Neuts (auto) (2.0-8.3) x10*3/uL Absolute Nucleated RBC (0.0-0.012) X10*3/uL Nucleated RBC % (auto) (0.0-0.2) /100WBC PT Cancelled INR Cancelled APTT Cancelled D-Dimer High Sensitivty Sodium (135-145) mmol/L Potassium (3.3-5.1) mmol/L Chloride (96-108) mmol/L Carbon Dioxide (22-29) mmol/L Anion Gap (12-20) BUN (9-16) mg/dL Creatinine (0.5-1.4) mg/dL Estim Creat Clear Calc Estimated GFR Random Glucose (60-115) mg/dL Calcium (8.4-10.2) mg/dL Total Bilirubin (0.0-1.0) mg/dL AST (5-31) U/L ALT (0-31) U/L Alkaline Phosphatase (39-117) U/L Troponin I High Sens (<3.5-17.0) ng/L Total Protein (6.5-8.0) g/dL Albumin (3.5-5.0) g/dL Urine Color YELLOW Urine Appearance CLEAR Urine pH 6.0 (5.0-8.0) Ur Specific [place] 1.025 (1.005-1.025) Urine Protein NEG (NEG-TRACE) MG/DL Urine Glucose (UA) NEG (NEG) MG/DL Urine Ketones NEG (NEG) MG/DL Urine Blood NEG (NEG) Urine Nitrite NEG (NEG) Ur Leukocyte Esterase NEG (NEG) COVID-19 (CHARLEY) Negative (Negative) COVID-19 Clin Com See Note 09/18/21 09/18/21 Range/Units 23:49 23:49 WBC (4.8-10.8) X10*3/uL RBC (4.20-5.50) X10*6/uL Hgb (12.0-16.0) g/dl Hct (37.0-47.0) % MCV (80.0-98.0) fL MCH (27.0-33.0) pg MCHC (31.0-35.0) g/dl RDW (11.0-16.0) % Plt Count (160-400) X10*3/uL MPV (9.4-12.3) fL Immature Gran % (Auto) (0.0-0.4) % Neut % (Auto) (45-73) % Lymph % (Auto) (20-40) % [place] % (Auto) (2-11) % Eos % (Auto) (0-4) % Baso % (Auto) (0-2) % Lymph # (Auto) (1.2-4.9) X10*3/uL [place] # (Auto) (0.1-1.2) X10*3/uL Eos # (Auto) (0.0-0.4) X10*3/uL Baso # (Auto) (0.0-0.2) X10*3/uL Abs Immat Gran (auto) (0.00-0.03) X10*3/uL Absolute Neuts (auto) (2.0-8.3) x10*3/uL Absolute Nucleated RBC (0.0-0.012) X10*3/uL Nucleated RBC % (auto) (0.0-0.2) /100WBC PT INR APTT D-Dimer High Sensitivty Cancelled Sodium (135-145) mmol/L Potassium (3.3-5.1) mmol/L Chloride (96-108) mmol/L Carbon Dioxide (22-29) mmol/L Anion Gap (12-20) BUN (9-16) mg/dL Creatinine (0.5-1.4) mg/dL Estim Creat Clear Calc Estimated GFR Random Glucose (60-115) mg/dL Calcium (8.4-10.2) mg/dL Total Bilirubin (0.0-1.0) mg/dL AST (5-31) U/L ALT (0-31) U/L Alkaline Phosphatase (39-117) U/L Troponin I High Sens 953.3 H* D (<3.5-17.0) ng/L Total Protein (6.5-8.0) g/dL Albumin (3.5-5.0) g/dL Urine Color Urine Appearance Urine pH (5.0-8.0) Ur Specific [place] (1.005-1.025) Urine Protein (NEG-TRACE) MG/DL Urine Glucose (UA) (NEG) MG/DL Urine Ketones (NEG) MG/DL Urine Blood (NEG) Urine Nitrite (NEG) Ur Leukocyte Esterase (NEG) COVID-19 (CHARLEY) (Negative) COVID-19 Clin Com ECG Data Attestation: I personally reviewed and interpreted this ECG as follows: Interpretation: Sinus bradycardia with heart rate 56 beats per minute , normal axis first-degree AV block no acute ischemic changes Critical Care Time Critical Care Time Critical Care Time: Yes Total Critical Care Time: 55 Attestation: I spent 55 minutes of critical care, with interventions, assessments, speaking to patient, consultants, and family. Discharge Plan Discharge Clinical Impression: Acute non-ST elevation myocardial infarction (NSTEMI), Syncope and collapse Patient Disposition: Admitted As Inpatient
[2021-09-18 22:31] LABS: Appearance Urine CLEAR; Color Urine YELLOW; Glucose Urine UA NEG (NEG); Leukocyte Esterase Urine NEG (NEG); Nitrite Urine NEG (NEG); Specific Gravity - Urine 1.025 (1.005-1.025); Urine Blood NEG (NEG); Urine Ketones NEG (NEG); Urine Protein NEG (NEG-TRACE)
--- NOTE | 2021-09-18 23:30 | PC.NURSE ---
pt a&x3, vss, 20G IV placed left AC. pt reports chest pain has mostly resolved. has been having epigastric pain/near syncopal episodes for the past 3-4 days. today pt became diaphoretic and EMS was called. aviation ordnance officer applied.
[2021-09-18 23:56] VITALS: BP 115/79; PULSE 81; RESP 16; O2SAT 97
[2021-09-18] MEDS: Heparin Sodium,Porcine 5,000 UNIT/ML VIAL 5000 UNIT IVPUSH (23:57)
--- NOTE | 2021-09-18 23:58 | P.HPHOSP_ITS ---
History of Present Illness Date of Service: 09/18/21 Chief Complaint: chest pain 66-year-old female with a past medical history of hyperlipidemia, GERD, NSVT on flecainide, metoprolol; presented to the hospital today with a chief complaint of chest pain. Patient reports that over the past 5 days she has been having intermittent episodes of chest pain, pressure-like in nature, radiating to the neck, associated mild nausea; today she had 2 episodes of for chest pain, similar in character; and around 630-7 p.m. patient had headache, severe; followed by she had lost consciousness briefly; mentions at the same time she felt nausea, short of breath, diaphoretic. Prior to the episode as she was not feeling well she called her who immediately came to check on her; denies any seizure-like activity. Denies any numbness tingling or focal weakness. Denies any headaches back pain neck pain. Patient denies any fever chills cough. Denies any chest pain at the time of my interview. Review of all other systems is negative except mentioned above ER course: Per ER team patient noted to have no ischemic changes on the EKG; troponin was negative; Troponin elevated with greater than 50% culture is; cardiology was notified. Started on heparin drip. Admitted for further management. [facility] Medical History Hemorrhoids with complication NSVT (nonsustained ventricular tachycardia) PVC (premature ventricular contraction) Family History Father Cardiovascular disease Mother Osteoarthritis Surgical History History of esophagogastroduodenoscopy (EGD) History of lumbar laminectomy History of shoulder surgery (~04/29/18) Hx of colonoscopy Social History Household Members: Spouse Alcohol intake: never Patient Tobacco Use Status: Never used Tobacco Use of substances other than those prescribed or required for medical reasons: No Advance Directives: No Advance Directives Information Provided: No Current occupational status: unemployed Current occupation: rt handed Meds Allergies Allergy/AdvReac Type Severity Reaction Status Date / Time peanut Allergy Severe angioedema Verified 09/18/21 20:45 lisinopril [LISINOPRIL] Allergy Intermediate RASH, cough Verified 09/18/21 20:45 zoster vaccine live Allergy Intermediate LOCALIZED Verified 09/18/21 20:45 [SHINGLES VACCINE] REDNESS, SWELLING, FEVER,COUGH latex [LATEX] Allergy Unknown RASH Verified 09/18/21 20:45 pineapple [PINEAPPLE] Allergy Unknown RASH Verified 09/18/21 20:45 strawberry [STRAWBERRY] Allergy Unknown RASH Verified 09/18/21 20:45 Active Medications: Current Medications Heparin Sodium (Porcine) (Heparin Sodium,Porcine 5,000 Unit/Ml Vial) 3,300 unit 40 unit/kg (3300 unit) IVPUSH PROTOCOL BOLUS PRN; Protocol PRN Reason: 40 unit/kg - Heparin Protocol Heparin Sodium (Porcine) (Heparin Sodium,Porcine 5,000 Unit/Ml Vial) 6,600 unit 80 unit/kg (6600 unit) IVPUSH PROTOCOL BOLUS PRN; Protocol PRN Reason: 80 unit/kg - Heparin Protocol Heparin Sodium/Sodium Chloride () 25,000 unit in 250 mls @ 0 mls/hr IVCONT .Q0M DENNYS; Protocol Home Medications Medication Instructions Recorded Confirmed Last Taken Type aspirin 81 mg tablet,delayed 81 mg PO DAILY 02/09/20 08/30/20 Unknown History release loratadine 10 mg tablet 10 mg PO DAILY 02/09/20 08/30/20 Unknown History montelukast 10 mg tablet 10 mg PO DAILY 02/09/20 08/30/20 Unknown History pravastatin 80 mg tablet 80 mg PO DAILY 02/09/20 08/30/20 Unknown History pregabalin 50 mg capsule (Lyrica) 50 mg PO BID 02/09/20 08/30/20 Unknown History hydrocortisone 2.5 % topical cream 1 appl [place] BID-QID PRN 03/26/20 08/30/20 Unknown History with perineal applicator (Anusol-HC) omeprazole 20 mg capsule,delayed 20 mg PO BID 07/05/20 08/30/20 Unknown History release hydrocortisone acetate 25 mg 25 mg HI TID 08/30/20 08/30/20 Unknown History rectal suppository syulty-bgvmotbt-faqachq 1 cap PO BID 08/30/20 08/30/20 Unknown History 24,000-76,000-120,000 unit capsule,delayed rel (Creon) nitroglycerin 0.4 % (w/w) rectal 1 inch HI BID 08/30/20 08/30/20 Unknown History ointment (Rectiv) Physical Exam Vital Signs and Narrative: Vital Signs: Last Vital Signs Temp 98.2 F 09/18/21 22:02 Pulse 59 09/18/21 22:02 Resp 16 09/18/21 22:02 BP 108/69 09/18/21 22:02 Pulse Ox 96 09/18/21 22:02 O2 Del Method 09/18/21 22:02 Oxygen Flow Rate 2 09/18/21 20:45 BMI result Body Mass Index 32.3 Gen: Appears be in no acute distress HEENT: NCAT, Moist mucosa. Pulmonary: Vesicular breath sounds, fair air entry CVS: Normal S1-S2 Abdomen: BS+, Soft, Nontender Extremities: Warm well perfused Neuro: Alert and awake. Results Labs CBC and Chem 7: 09/18/21 21:29 09/18/21 21:29 Labs: Laboratory Results - last 24 hr 09/18/21 09/18/21 09/18/21 21:29 21:29 21:29 MCV 86.4 MCH 27.5 MCHC 31.8 RDW 14.0 Plt Count 234 MPV 10.8 Immature Gran % (Auto) 0.4 Neut % (Auto) 78.3 H Lymph % (Auto) 13.9 L [place] % (Auto) 5.9 Eos % (Auto) 0.9 Baso % (Auto) 0.6 Lymph # (Auto) 2.1 [place] # (Auto) 0.9 Eos # (Auto) 0.1 Baso # (Auto) 0.1 Abs Immat Gran (auto) 0.06 H Absolute Neuts (auto) 11.7 H Absolute Nucleated RBC 0.000 Nucleated RBC % (auto) 0.0 Anion Gap 13 Estim Creat Clear Calc 47.6 Estimated GFR 45 Random Glucose 153 H Calcium 9.2 Total Bilirubin < 0.2 AST 18 ALT 18 Alkaline Phosphatase 80 Troponin I High Sens 415.1 H* Total Protein 6.1 L Albumin 3.7 Urine Color Urine Appearance Urine pH Ur Specific [place] Urine Protein Urine Glucose (UA) Urine Ketones Urine Blood Urine Nitrite Ur Leukocyte Esterase COVID-19 (CHARLEY) COVID-19 Clin Com 09/18/21 09/18/21 21:29 22:25 MCV MCH MCHC RDW Plt Count MPV Immature Gran % (Auto) Neut % (Auto) Lymph % (Auto) [place] % (Auto) Eos % (Auto) Baso % (Auto) Lymph # (Auto) [place] # (Auto) Eos # (Auto) Baso # (Auto) Abs Immat Gran (auto) Absolute Neuts (auto) Absolute Nucleated RBC Nucleated RBC % (auto) Anion Gap Estim Creat Clear Calc Estimated GFR Random Glucose Calcium Total Bilirubin AST ALT Alkaline Phosphatase Troponin I High Sens Total Protein Albumin Urine Color YELLOW Urine Appearance CLEAR Urine pH 6.0 Ur Specific [place] 1.025 Urine Protein NEG Urine Glucose (UA) NEG Urine Ketones NEG Urine Blood NEG Urine Nitrite NEG Ur Leukocyte Esterase NEG COVID-19 (CHARLEY) Negative COVID-19 Clin Com See Note Imaging Radiologist's Impressions: Impressions Chest X-Ray 09/18/21 20:46 IMPRESSION: No evidence of acute disease. Assessment and Plan (1) NSTEMI (non-ST elevated myocardial infarction): Status: Acute Plan 66-year-old female with a past medical history of hyperlipidemia, GERD, NSVT on flecainide, metoprolol; presented to the hospital today with a chief complaint of chest pain/syncope NSTEMI: Patient currently denies any chest pain. Patient had-she nitroglycerin patch Continued on heparin drip EKG nonischemic Cycle cardiac enzymes Will keep the patient on aspirin, statin. Patient noted to be mildly bradycardic with heart rate in 50s. Continue home metoprolol with holding parameters Echocardiogram Cardiology consult Syncope: Likely vasovagal-episode was preceded by severe headache. Orthostatic vitals EKG showed heart rate in 50s. Nonischemic. Sinus arrhythmia. Exam grossly nonfocal Obtaining echocardiogram Monitor on telemetry History of NSVT: Continue home flecainide, metoprolol. For all other chronic conditions, home medications will be continued-pending med rec. DVT prophylaxis: Patient on heparin drip Code status: Full code. Confirmed with the patient's daughter at bedside Quality Stroke Does the patient have a stroke diagnosis?: No VTE Prior VTE?: No VTE Risk Level:: Medical - moderate - high VTE Device Contraindication: Treatment Not Indicated VTE Drug Contraindication: N/A - Med Ordered
[2021-09-19 00:25] LABS: Troponin-I High Sensitivity 953.3 ng/L (<3.5-17.0)
--- NOTE | 2021-09-19 00:29 | PC.NURSE ---
Critical result reported to YOSELIN Thomas and Dr Rodríguez.
--- NOTE | 2021-09-19 00:30 | PC.NURSE ---
pt c/o increasing chest pain, provider in room and aware.
[2021-09-19 00:43] LABS: INTERNATIONAL NORM RATIO 1.1 (0.9-1.1); Prothrombin Time 12.6 SEC (9.9-13.0)
[2021-09-19 00:46] VITALS: BP 115/67; PULSE 67
[2021-09-19] MEDS: Nitroglycerin 2 % Oint 1 GM Packet 0.5 INCH TRANSDERMA (00:46)
--- NOTE | 2021-09-19 00:49 | PC.NURSE ---
medicated w nitro paste, heparin drip held per provider pending CT.
[2021-09-19 00:58] LABS: D Dimer High Sensitivity < 150 NG/ML; PTT Heparin Drip 197.5 SEC (53-77.9)
--- NOTE | 2021-09-19 01:12 | ECG_ITS ---
Test Reason : REPEAT Blood Pressure : / mmHG Vent. Rate : 057 BPM Atrial Rate : 057 BPM P-R Int : 204 ms QRS Dur : 086 ms QT Int : 466 ms P-R-T Axes : 065 057 082 degrees QTc Int : 453 ms Sinus bradycardia with occasional Premature ventricular complexes Nonspecific T wave abnormality Abnormal ECG When compared with ECG of 18-SEP-2021 20:41, Premature ventricular complexes are now Present Nonspecific T wave abnormality now evident in Anterolateral leads Referred By: Clem Shelby Electronically Signed By:ROSIO MONTERO
[2021-09-19 01:38] VITALS: PULSE 77; O2SAT 97
[2021-09-19] MEDS: Heparin Sodium,Porcine/1/2NS 25,000 UNIT/250 ML IV.SOLN 9.96 UNIT IVCONT (01:51)
[2021-09-19 02:59] VITALS: BP 99/62; PULSE 62; RESP 18; O2SAT 96
--- NOTE | 2021-09-19 03:11 | PC.NURSE ---
Ptt was drawn after bolus. resulting in a critical PTT. YOSELIN Thomas and Provider aware of results. Per -provider Heparin was to be started Per weight at this time.
--- NOTE | 2021-09-19 03:21 | PC.NURSE ---
pt a&ox3, vss, pt c/o headache, chest pain resolved. heparin running at 12u/hr per provider order. provider requested that initial heparin bolus be given prior to ptt results, ptt needed to be redrawn post bolus. provider notified of critical lab, heparin drip started at weight based protocol of 12u per provider order. oncoming RN notified of current heparin rate.
[2021-09-19 04:14] LABS: INTERNATIONAL NORM RATIO 1.1 (0.9-1.1); Prothrombin Time 12.3 SEC (9.9-13.0)
--- NOTE | 2021-09-19 04:45 | PC.NURSE ---
pt resting comfortably in bed, dtr at bedside. pt has no c/o pain or SOB. IV heparin infusing without any adverse s/sx. MD Crespo in to see pt
[2021-09-19 04:49] VITALS: BP 119/70; PULSE 59; RESP 19; O2SAT 96
[2021-09-19 06:57] LABS: MANUAL DIFF FLAG NO
--- NOTE | 2021-09-19 07:00 | CA_ITS ---
Transthoracic Echocardiogram Patient (Last, First, Middle): Araseli Leary, Gender: Female Date of : 1955 Age: 66 Procedure Date: 09/19/2021 Procedure Type: Transthoracic Echocardiogram Location: ER Height: 160.02 cm Weight: 80.29 kg BSA: 1.84 m2 Heart Rate: bpm BP: 107 / 73 mmHg Hand Winder: RICK Referring MD: Connor Tavares MD Symptoms: NSTEMI Study Quality: Fair ECG Rhythm: Sinus Conclusions: - The left ventricular systolic function is low normal. The calculated ejection fraction is 53% by biplane method. - The basal inferior segment is akinetic. - No obvious valvular pathology seen on this study. Findings Left Ventricle Normal left ventricular cavity size. There is normal left ventricular wall thickness. The left ventricular systolic function is low normal. The calculated ejection fraction is 53% by biplane method. There is evidence of regional wall motion abnormalities. Diastolic function is normal for age. Wall Motion Rest Echo Findings The basal inferior segment is akinetic. Right Ventricle Normal right ventricular cavity size and systolic function. Atria The left atrium is likely dilated. The right atrium is normal in size. Aortic Valve There is a normal trileaflet aortic valve. There is no aortic valve stenosis. There is no aortic valve regurgitation. Mitral Valve The mitral valve appears normal. There is mild mitral valve regurgitation. There is no mitral valve stenosis. Pulmonic Valve The pulmonic valve is likely normal. Tricuspid Valve Normal tricuspid valve structure. There is trace tricuspid valve regurgitation. The pulmonary artery systolic pressure is normal. Great Vessels The asc aorta is normal in size. Venous The inferior vena cava is normal in size and collapses greater than 50% with inspiration. Pericardium/Pleural There is no evidence of pericardial effusion. Prior Study Comparison Changes noted compared to prior study dated: 04/26/2019. See comment on wall motion. Recommendations, Care & Conclusions No obvious valvular pathology seen on this study. Measurements 2D Linear Measurements IVSd: 0.93 0.6-0.9/0.6-1.0 cm LVIDd: 4.48 3.9-5.3/4.2-5.9 cm LVIDd Index: 2.43 2.4-3.2/2.2-3.1 cm/m2 LVIDs: 3.28 2.0-3.6 cm LVPWd: 0.81 0.7-1.1 cm LA Diam: 3.60 2.7-3.8/3.0-4.0 cm LAIDs Index: 1.96 1.5-2.3 cm/m2 LV Mass: 156.76 67-162/88-224 g LV Mass Index: 85.19 43-95/49-115 g/m2 LVOT Diam: 2.10 3.0+(-)1.3 cm 2D Systolic Function EF 4C: 51.60 >55% EF 2C: 53.60 >55% EF BiP: 52.50 >55% Mitral Valve MV Pk E: 0.80 MV PK A: 0.85 MV Decel Time: 255.00 E/A: 0.90 E'Lateral: 9.57 E'Medial: 8.81 E/E' Med: 9.10 E/E' Lat: 8.40 PHT: 75.00 MVA PHT: 2.93 Decel [place]: 3.14 Aortic Valve AoV Pk Malvin: 1.71 AoV Mn Malvin: 1.12 AoV VTI: 0.36 AoV Pk Grad: 12.00 Aov Mn Grad: 6.00 EMMA Cont.VTI: 1.72 LVOT LVOT Pk Malvin: 0.84 LVOT Mn Malvin: 0.52 LVOT VTI: 0.18 LVOT Pk Grad: 3.00 LVOT Mn Grad: 1.00 LVOT Diam: 2.10 LVOT Area: 3.46 Diastolic Function MV Pk E: 0.80 MV Pk A: 0.85 E/A: 0.90 E'Medial: 8.81 E/E' Med: 9.10 E' Laterial: 9.57 E/E' Lat: 8.40 Right Ventricle TAPSE (mm): 25.60 TVS' Malvin: 11.90 Tricuspid Valve TR Pk Malvin: 2.16 TR Pk Grad: 19.00 RA Press: 3.00 RVSP: 22.00 Great Vessels Aorta Sinus of Valsalva: 3.14 2.0-3.[address] [place]: 2.31 1.7-3.4 cm Ao Asc: 3.20 2.1-3.4 cm Updated in Other Vendor System with Status of Final Bishnu Cesar MD electronically signed on 09/19/2021 4:39:56 PM with status of Final
[2021-09-19 07:18] LABS: INTERNATIONAL NORM RATIO 1.1 (0.9-1.1); Prothrombin Time 12.6 SEC (9.9-13.0)
[2021-09-19 07:22] LABS: Basophils Absolute Auto 0.1 X10*3/uL (0.0-0.2); Basophils Percent Auto 0.7 % (0-2); Eosinophils Absolute Auto 0.2 X10*3/uL (0.0-0.4); Eosinophils Percent Auto 1.5 % (0-4); Hematocrit 39.6 % (37.0-47.0); Hemoglobin 12.7 g/dl (12.0-16.0); Imm Gran Abs Auto 0.04 X10*3/uL (0.00-0.03); Imm Gran Pct Auto 0.3 % (0.0-0.4); Lymphocytes Absolute Auto 2.6 X10*3/uL (1.2-4.9); Lymphocytes Percent Auto 21.4 % (20-40); Mean Corpuscular HGB Conc 32.1 g/dl (31.0-35.0); Mean Corpuscular Hemoglobin 27.8 pg (27.0-33.0); Mean Corpuscular Volume 86.7 fL (80.0-98.0); Mean Platelet Volume 11.2 fL (9.4-12.3); Monocytes Absolute Auto 0.8 X10*3/uL (0.1-1.2); Monocytes Percent Auto 6.6 % (2-11); Neutrophils Absolute Auto 8.5 x10*3/uL (2.0-8.3); Neutrophils Percent Auto 69.5 % (45-73); Platelet Count 231 X10*3/uL (160-400); Red Blood Count 4.57 X10*6/uL (4.20-5.50); Red Cell Distribution Width 14.1 % (11.0-16.0); White Blood Count 12.3 X10*3/uL (4.8-10.8)
[2021-09-19 07:26] LABS: Anion Gap 11 (12-20); Blood Urea Nitrogen 26 mg/dL (9-16); Calcium 8.8 mg/dL (8.4-10.2); Carbon Dioxide 24 mmol/L (22-29); Chloride 109 mmol/L (96-108); Creatinine Clr Calc Pharmacy 72.4; Estimated Glomerular Filt Rate > 60; Glucose Random 122 mg/dL (60-115); Potassium 4.1 mmol/L (3.3-5.1); Sodium 140 mmol/L (135-145)
[2021-09-19 08:11] VITALS: BP 107/62; PULSE 60; RESP 16; O2SAT 94
--- NOTE | 2021-09-19 08:38 | PHA.MEDREC ---
MED REC COMPLETE, NO ISSUES Pharmacy Consult ? Medication Reconciliation Pharmacy has completed the medication reconciliation.
[2021-09-19 09:08] LABS: Troponin-I High Sensitivity 2107.3 ng/L (<3.5-17.0)
[2021-09-19] MEDS: Pregabalin 50 MG CAPSULE PO (09:42)
[2021-09-19] MEDS: Omeprazole 20 MG CAPSULE.DR PO (09:42)
[2021-09-19] MEDS: Aspirin Enteric Coated 81 MG TABLET.DR PO ×2 (09:42)
[2021-09-19] MEDS: Metoprolol Succinate ER 100 MG TAB.ER.24H PO (09:42)
--- NOTE | 2021-09-19 10:38 | MHC.CM.PN ---
Addendum entered by Jesusita Cohen 09/19/21 12:08: PATIENT IS A [facility] TRANSFER Addendum entered by Jesusita Cohen 09/19/21 10:57: ACCORDING TO CONVERSATION WITH RN, PATIENT MAY NOT BE AN ACUTE CARE TRANSFER FAMILY ORIGINALLY THOUGHT CASE MANAGEMENT TO CONTINUE TO FOLLOW Original Note: PATIENT LIVES WITH HER SPOUSE/HCP SHE HAS BEEN COVID VACCINATED X 2 WITH PFIZER. HAS A CANE IN THE HOME BUT RARELY RELIES ON IT. IMM 09/19 EXPLAINED, SIGNED, AND COPY PLACED IN MEDICAL RECORD BIN PATIENT IS A [facility] TRANSFER DAUGHTER (IN ROOM) AWARE OF PLAN
--- NOTE | 2021-09-19 12:00 | P.DS_ITS ---
DS: Providers Provider Date of Service: 09/19/21 Date of admission: 09/18/21 23:56 Date of discharge: 09/19/21 Primary care physician: Jenny Vázquez MD Consults: 09/18/21 23:56 Consult to Cardiology Routine Consulting Provider: Bishnu Cesar Reason for consultation: NSTEMI DS: Diagnosis Discharge Diagnosis (1) NSTEMI (non-ST elevated myocardial infarction): Status: Acute DS: Summary Status at Discharge Cognitive/behavioral status at discharge: 66-year-old female with a past medical history of hyperlipidemia, GERD, NSVT on flecainide, metoprolol; presented to the hospital today with a chief complaint of chest pain.? Patient reports that over the past 5 days she has been having intermittent episodes of chest pain, pressure-like in nature, radiating to the neck, associated mild nausea; today she had 2 episodes of for chest pain, similar in character; and around 630-7 p.m. patient had headache, severe; followed by she had lost consciousness briefly; mentions at the same time she felt nausea, short of breath, diaphoretic.? Hospital Course Initial troponin 09/18/2021@21:30 (415.1); 09/19/21 @0645(2107.3). EKG on admission and this a.m. without acute ST-T changes. Patient has been on heparin drip since initial troponin. At this point in time she has been seen by Cardiology and requested to transfer to [facility] for urgent cardiac catheterization. Patient is hemodynamically stable at the time of transfer; no chest pain since admit Time Spent with Patient Time attestation: Total time spent providing and/or coordinating discharge services: Discharge coordination time: Greater than 30 minutes Quality: Safe Use of Opioids Does Pt have an Active Cancer Diagnosis on the Problem List?: No Quality: Stroke Does the patient have a stroke diagnosis?: No Physical Exam Vital Signs: Vital Signs: Last Vital Signs Temp 98.2 F 09/18/21 22:02 Pulse 60 09/19/21 08:11 Resp 16 09/19/21 08:11 BP 107/62 09/19/21 08:11 Pulse Ox 94 09/19/21 08:11 O2 Del Method 09/19/21 08:11 Oxygen Flow Rate 2 09/18/21 20:45 BMI result Body Mass Index 32.3 Const: Other: awake alert oriented x3 no acute distress Resp: Other: clear to auscultation bilaterally no rales rh Cardio: Other: no S4; positive S1-S2; no S3 murmurs rubs or gallops GI: Other: soft nontender nondistended normoactive bowel dereje Neuro: Other: cranial nerves 2-12 grossly intact as tested. Motor is 5/5 all extremities. Sensation intact. Cognition appropriate Extrem: Other: no edema bilaterally DS: Data Data Completed and Pending Labs on day of discharge: Laboratory Results - last 24 hr 09/18/21 09/18/21 09/18/21 21:29 21:29 21:29 WBC 15.0 H RBC 4.84 Hgb 13.3 Hct 41.8 MCV 86.4 MCH 27.5 MCHC 31.8 RDW 14.0 Plt Count 234 MPV 10.8 Immature Gran % (Auto) 0.4 Neut % (Auto) 78.3 H Lymph % (Auto) 13.9 L [place] % (Auto) 5.9 Eos % (Auto) 0.9 Baso % (Auto) 0.6 Lymph # (Auto) 2.1 [place] # (Auto) 0.9 Eos # (Auto) 0.1 Baso # (Auto) 0.1 Abs Immat Gran (auto) 0.06 H Absolute Neuts (auto) 11.7 H Absolute Nucleated RBC 0.000 Nucleated RBC % (auto) 0.0 PT INR APTT aPTT Heparin Protocol D-Dimer High Sensitivty Sodium 139 Potassium 4.4 Chloride 107 Carbon Dioxide 23 Anion Gap 13 BUN 23 H Creatinine 1.20 Estim Creat Clear Calc 47.6 Estimated GFR 45 Random Glucose 153 H Calcium 9.2 Total Bilirubin < 0.2 AST 18 ALT 18 Alkaline Phosphatase 80 Troponin I High Sens 415.1 H* Total Protein 6.1 L Albumin 3.7 Urine Color Urine Appearance Urine pH Ur Specific [place] Urine Protein Urine Glucose (UA) Urine Ketones Urine Blood Urine Nitrite Ur Leukocyte Esterase COVID-19 ([facility]) COVID-19 Clin Com 09/18/21 09/18/21 09/18/21 21:29 22:25 23:49 WBC RBC Hgb Hct MCV MCH MCHC RDW Plt Count MPV Immature Gran % (Auto) Neut % (Auto) Lymph % (Auto) [place] % (Auto) Eos % (Auto) Baso % (Auto) Lymph # (Auto) [place] # (Auto) Eos # (Auto) Baso # (Auto) Abs Immat Gran (auto) Absolute Neuts (auto) Absolute Nucleated RBC Nucleated RBC % (auto) PT Cancelled INR Cancelled APTT Cancelled aPTT Heparin Protocol D-Dimer High Sensitivty Sodium Potassium Chloride Carbon Dioxide Anion Gap BUN Creatinine Estim Creat Clear Calc Estimated GFR Random Glucose Calcium Total Bilirubin AST ALT Alkaline Phosphatase Troponin I High Sens Total Protein Albumin Urine Color YELLOW Urine Appearance CLEAR Urine pH 6.0 Ur Specific [place] 1.025 Urine Protein NEG Urine Glucose (UA) NEG Urine Ketones NEG Urine Blood NEG Urine Nitrite NEG Ur Leukocyte Esterase NEG COVID-19 ([facility]) Negative COVID-19 Clin Com See Note 09/18/21 09/18/21 09/19/21 23:49 23:49 00:33 WBC RBC Hgb Hct MCV MCH MCHC RDW Plt Count MPV Immature Gran % (Auto) Neut % (Auto) Lymph % (Auto) [place] % (Auto) Eos % (Auto) Baso % (Auto) Lymph # (Auto) [place] # (Auto) Eos # (Auto) Baso # (Auto) Abs Immat Gran (auto) Absolute Neuts (auto) Absolute Nucleated RBC Nucleated RBC % (auto) PT 12.6 INR 1.1 APTT aPTT Heparin Protocol 197.5 H* D-Dimer High Sensitivty Cancelled < 150 Sodium Potassium Chloride Carbon Dioxide Anion Gap BUN Creatinine Estim Creat Clear Calc Estimated GFR Random Glucose Calcium Total Bilirubin AST ALT Alkaline Phosphatase Troponin I High Sens 953.3 H* D Total Protein Albumin Urine Color Urine Appearance Urine pH Ur Specific [place] Urine Protein Urine Glucose (UA) Urine Ketones Urine Blood Urine Nitrite Ur Leukocyte Esterase COVID-19 ([facility]) COVID-19 Clin Com 09/19/21 09/19/21 09/19/21 04:01 06:46 06:46 WBC 12.3 H RBC 4.57 Hgb 12.7 Hct 39.6 MCV 86.7 MCH 27.8 MCHC 32.1 RDW 14.1 Plt Count 231 MPV 11.2 Immature Gran % (Auto) 0.3 Neut % (Auto) 69.5 Lymph % (Auto) 21.4 [place] % (Auto) 6.6 Eos % (Auto) 1.5 Baso % (Auto) 0.7 Lymph # (Auto) 2.6 [place] # (Auto) 0.8 Eos # (Auto) 0.2 Baso # (Auto) 0.1 Abs Immat Gran (auto) 0.04 H Absolute Neuts (auto) 8.5 H Absolute Nucleated RBC 0.000 Nucleated RBC % (auto) 0.0 PT 12.3 12.6 INR 1.1 1.1 APTT aPTT Heparin Protocol 86.0 H D D-Dimer High Sensitivty Sodium Potassium Chloride Carbon Dioxide Anion Gap BUN Creatinine Estim Creat Clear Calc Estimated GFR Random Glucose Calcium Total Bilirubin AST ALT Alkaline Phosphatase Troponin I High Sens Total Protein Albumin Urine Color Urine Appearance Urine pH Ur Specific [place] Urine Protein Urine Glucose (UA) Urine Ketones Urine Blood Urine Nitrite Ur Leukocyte Esterase COVID-19 ([facility]) COVID-[employer] 09/19/21 09/19/21 06:46 06:46 WBC RBC Hgb Hct MCV MCH MCHC RDW Plt Count MPV Immature Gran % (Auto) Neut % (Auto) Lymph % (Auto) [place] % (Auto) Eos % (Auto) Baso % (Auto) Lymph # (Auto) [place] # (Auto) Eos # (Auto) Baso # (Auto) Abs Immat Gran (auto) Absolute Neuts (auto) Absolute Nucleated RBC Nucleated RBC % (auto) PT INR APTT aPTT Heparin Protocol D-Dimer High Sensitivty Sodium 140 Potassium 4.1 Chloride 109 H Carbon Dioxide 24 Anion Gap 11 L BUN 26 H Creatinine 0.79 Estim Creat Clear Calc 72.4 Estimated GFR > 60 Random Glucose 122 H Calcium 8.8 Total Bilirubin AST ALT Alkaline Phosphatase Troponin I High Sens 2107.3 H* D Total Protein Albumin Urine Color Urine Appearance Urine pH Ur Specific [place] Urine Protein Urine Glucose (UA) Urine Ketones Urine Blood Urine Nitrite Ur Leukocyte Esterase COVID-19 ([facility]) COVID-19 [facility] Com Discharge Plan Discharge Patient Disposition: Xfer Acute Care Hospital Discharge Diagnosis: NSTEMI Referrals: Jenny Vázquez MD [Primary Care Provider] - 1 Week Discharge Medications: New nitroglycerin [Nitrostat] 0.4 mg Tablet, Sublingual 0.4 mg sublingual Q5MX3 PRN (Reason: Chest Pain) Qty: 30 0RF heparin (porcine) 5,000 unit/mL Solution 3,300 unit IVPUSH PROTOCOL BOLUS PRN (Reason: 40 Unit/Kg - Heparin Protocol) Qty: 10 0RF heparin (porcine) 5,000 unit/mL Solution 6,600 unit IVPUSH PROTOCOL BOLUS PRN (Reason: 80 Unit/Kg - Heparin Protocol) Qty: 10 0RF heparin(porcine) in 0.45% NaCl 25,000 unit/250 mL Parenteral Solution 25,000 unit continuous IV infusion .Q0M Qty: 250 0RF atorvastatin 80 mg tablet 80 mg PO BEDTIME Qty: 30 0RF Continued metoprolol succinate 50 mg tablet extended release 24 hr 100 mg PO DAILY Rx Instructions: Must call and schedule a cardiology appt for refills aspirin 81 mg tablet,delayed release (DR/EC) 81 mg PO DAILY loratadine 10 mg tablet 10 mg PO BEDTIME pregabalin [Lyrica] 50 mg capsule 50 mg PO BID montelukast 10 mg tablet 10 mg PO BEDTIME omeprazole 20 mg capsule,delayed release(DR/EC) 20 mg PO DAILY@0630 Discontinued flecainide 100 mg tablet 100 mg PO Q12H 30 Days Qty: 60 0RF Rx Instructions: Must call and schedule a cardiology appt for refills. pravastatin 80 mg tablet 80 mg PO BEDTIME Discharge Orders: Discharge Order (Routine); Ordered 09/19/21 Ordered By: Twan Castellanos Diet: advance to usual diet Activity on Discharge: As tolerated Stand Alone Forms: Patient Portal Discharge page Care Plan Goals: transfer to [facility] for cardiac catheterization Health Concerns: continue heparin drip as ordered Plan of Treatment: further plans based on forthcoming data Assessment: see discharge summary
[2021-09-19 12:01] LABS: PTT Heparin Drip 70.5 SEC (53-77.9)
--- NOTE | 2021-09-19 12:14 | P.CONCA_ITS ---
History of Present Illness History of Present Illness Date of Service: 09/19/21 Chief complaint: NSTEMI Narrative: This is a cardiology consultation regarding elevated troponins. In the past, she was seen regarding premature ventricular contractions. She has also had some atypical chest pains in the past. However myocardial perfusion imaging study was unremarkable. Then we plan to get a coronary CTA and was ordered scheduled for last year but not completed. We have not seen her since that time. She states that she has not been doing good for the last few days. She has had chest pains almost consistently. Gets worse with exertion. At this point in time, she has been free. Pain radiated to the neck and she also had some nausea. Some headaches. Some brief loss of consciousness but not clear what that was. Troponins are clearly in the NSTEMI range. Review of Systems Review of Systems: Yes all other systems are reviewed and are negative Constitutional: Constitutional: Reports as per HPI Eyes: Eyes: Reports as per HPI ENT: Reports as per HPI Cardiovascular: Cardiovascular: Reports as per HPI, Denies acrocyanosis, Denies cool extremities, Denies chest pain, Denies leg edema, Denies lightheade dness, Denies palpitations and Denies dyspnea Respiratory: Respiratory: Reports as per HPI, Reports no additional respiratory complaints and Denies dyspnea Gastrointestinal: Gastrointestinal: Reports as per HPI and Reports no additional gastrointestinal complaints Genitourinary: Genitourinary: Reports as per HPI Musculoskeletal: Musculoskeletal: Reports no additional musculoskeletal complaints and Reports as per HPI Integumentary/Breasts: Skin/Breast: Reports system reviewed and no additional complaints, except as docu Neurologic: Reports system reviewed and no additional complaints, except as documented and Reports as per HPI Psychiatric: Psychiatric: Reports no additional psychiatric complaints and Reports as per HPI Endocrine: Endocrine: Reports no additional endocrine complaints, Reports as per HPI and Denies palpitations Hematologic/Lymphatic: Hematologic/Lymphatic: Reports no additional hematologic/lymphatic complaints and Reports as per HPI Allergic/Immunologic: Allergic/Immunologic: Reports no additional allergic/immunologic complaints and Reports as per HPI PMF Past Medical History Medical History Hemorrhoids with complication NSVT (nonsustained ventricular tachycardia) PVC (premature ventricular contraction) Family History Family History Father Cardiovascular disease Mother Osteoarthritis Surgical History Surgical History History of esophagogastroduodenoscopy (EGD) History of lumbar laminectomy History of shoulder surgery (~04/29/18) Hx of colonoscopy Social History Social History Household Members: Spouse Alcohol intake: never Patient Tobacco Use Status: Never used Tobacco Use of substances other than those prescribed or required for medical reasons: No Advance Directives: No Advance Directives Information Provided: No service: No Current occupational status: unemployed Current occupation: rt handed Meds Allergies Allergy/AdvReac Type Severity Reaction Status Date / Time peanut Allergy Severe angioedema Verified 09/18/21 20:45 lisinopril [LISINOPRIL] Allergy Intermediate RASH, cough Verified 09/18/21 20:45 zoster vaccine live Allergy Intermediate LOCALIZED Verified 09/18/21 20:45 [SHINGLES VACCINE] REDNESS, SWELLING, FEVER,COUGH latex [LATEX] Allergy Unknown RASH Verified 09/18/21 20:45 pineapple [PINEAPPLE] Allergy Unknown RASH Verified 09/18/21 20:45 strawberry [STRAWBERRY] Allergy Unknown RASH Verified 09/18/21 20:45 Active Medications: Current Medications Acetaminophen (Acetaminophen 325 Mg Tablet) 650 mg PO Q6H PRN PRN Reason: Pain, Mild (Pain Scale 1-3) Aspirin (Aspirin Enteric Coated 81 Mg Tablet.) 81 mg PO DAILY [facility] Last Admin: 09/19/21 09:42 Dose: 81 mg Aspirin (Aspirin Enteric Coated 81 Mg Tablet.) 81 mg PO DAILY [facility] Last Admin: 09/19/21 09:42 Dose: 81 mg Atorvastatin Calcium (Atorvastatin Calcium 40 Mg Tablet) 40 mg PO BEDTIME [facility] Heparin Sodium (Porcine) (Heparin Sodium,Porcine 5,000 Unit/Ml Vial) 3,300 unit 40 unit/kg (3300 unit) IVPUSH PROTOCOL BOLUS PRN; Protocol PRN Reason: 40 unit/kg - Heparin Protocol Heparin Sodium (Porcine) (Heparin Sodium,Porcine 5,000 Unit/Ml Vial) 6,600 unit 80 unit/kg (6600 unit) IVPUSH PROTOCOL BOLUS PRN; Protocol PRN Reason: 80 unit/kg - Heparin Protocol Heparin Sodium/Sodium Chloride () 25,000 unit in 250 mls @ 0 mls/hr IVCONT .Q0M [facility]; Protocol Last Titration: 09/19/21 05:43 Dose: 9.99 units/kg/hr, 8.29 mls/hr Loratadine (Loratadine 10 Mg Tablet) 10 mg PO BEDTIME [facility] Melatonin (Melatonin 3 Mg Tablet) 6 mg PO BEDTIME PRN PRN Reason: Insomnia Metoprolol Succinate (Metoprolol Succinate Er 100 Mg Tab.Er.24h) 100 mg PO DAILY [facility]; Protocol Last Admin: 09/19/21 09:42 Dose: 100 mg Montelukast Sodium (Montelukast Sodium 10 Mg Tablet) 10 mg PO BEDTIME [facility] Nitroglycerin (Nitroglycerin 0.4 Mg Tab.Subl) 0.4 mg SUBLINGUAL Q5MX3 PRN PRN Reason: Chest Pain Omeprazole (Omeprazole 20 Mg Capsule.) 20 mg PO DAILY@06 [facility] Last Admin: 09/19/21 09:42 Dose: 20 mg Pharmacy Consult (Consult Rx Perform Med Rec) 1 each MISCELLANE ONCE PRN PRN Reason: Consult order Pregabalin (Pregabalin 50 Mg Capsule) 50 mg PO BID [facility] Last Admin: 09/19/21 09:42 Dose: 50 mg Senna (Sennosides 8.6 Mg Tablet) 17.2 mg PO BEDTIME PRN PRN Reason: Constipation Sodium Chloride (0.9 % Sodium Chloride Flush 3 Ml Syringe) 3 ml IVFLUSH QSHIFT [facility] Last Admin: 09/19/21 09:42 Dose: Not Given Home Medications Medication Instructions Recorded Confirmed Last Taken Type aspirin 81 mg tablet,delayed 81 mg PO DAILY 02/09/20 09/19/21 09/17/21 History release loratadine 10 mg tablet 10 mg PO BEDTIME 02/09/20 09/19/21 09/17/21 History montelukast 10 mg tablet 10 mg PO BEDTIME 02/09/20 09/19/21 09/17/21 History pregabalin 50 mg capsule (Lyrica) 50 mg PO BID 02/09/20 09/19/21 09/17/21 History omeprazole 20 mg capsule,delayed 20 mg PO DAILY@0630 07/05/20 09/19/21 09/17/21 History release metoprolol succinate 50 mg 100 mg PO DAILY 09/19/21 09/19/21 09/17/21 History tablet,extended release 24 hr Physical Exam Vital Signs: Vital Signs: Last Vital Signs Temp 98.2 F 09/18/21 22:02 Pulse 60 09/19/21 08:11 Resp 16 09/19/21 08:11 BP 107/62 09/19/21 08:11 Pulse Ox 94 09/19/21 08:11 O2 Del Method 09/19/21 08:11 Oxygen Flow Rate 2 09/18/21 20:45 BMI result Body Mass Index 32.3 Const: General: comfortable and no acute distress Orientation/consciousness: patient oriented x3 HEENT: Other: Unremarkable Head: Yes normal to inspection Neck: Neck: Yes normal visual inspection Chest: Chest palpation & inspection: normal inspection of the chest Resp: Auscultation: clear to auscultation bilaterally Cardio: Palpation: normal PMI Heart sounds: S1 normal heart sound present, S2 normal heart sound present, no gallops, no murmurs and no rubs GI: Palpation (GI): Soft to palpation Back/Spine/Pelvis: Other: unremarkable Skin: General skin exam: no rashes or lesions noted Neuro: General: patient oriented x3 Extrem: General: Yes normal to inspection Psych: Mental Status: mental status grossly normal Objective Labs and Meds Result diagrams: 09/19/21 06:46 09/19/21 06:46 Lab results: Laboratory Results - last 24 hr 09/18/21 09/18/21 09/18/21 21:29 21:29 21:29 WBC 15.0 H RBC 4.84 Hgb 13.3 Hct 41.8 MCV 86.4 MCH 27.5 MCHC 31.8 RDW 14.0 Plt Count 234 MPV 10.8 Immature Gran % (Auto) 0.4 Neut % (Auto) 78.3 H Lymph % (Auto) 13.9 L [place] % (Auto) 5.9 Eos % (Auto) 0.9 Baso % (Auto) 0.6 Lymph # (Auto) 2.1 [place] # (Auto) 0.9 Eos # (Auto) 0.1 Baso # (Auto) 0.1 Abs Immat Gran (auto) 0.06 H Absolute Neuts (auto) 11.7 H Absolute Nucleated RBC 0.000 Nucleated RBC % (auto) 0.0 PT INR APTT aPTT Heparin Protocol D-Dimer High Sensitivty Sodium 139 Potassium 4.4 Chloride 107 Carbon Dioxide 23 Anion Gap 13 BUN 23 H Creatinine 1.20 Estim Creat Clear Calc 47.6 Estimated GFR 45 Random Glucose 153 H Calcium 9.2 Total Bilirubin < 0.2 AST 18 ALT 18 Alkaline Phosphatase 80 Troponin I High Sens 415.1 H* Total Protein 6.1 L Albumin 3.7 Urine Color Urine Appearance Urine pH Ur Specific [place] Urine Protein Urine Glucose (UA) Urine Ketones Urine Blood Urine Nitrite Ur Leukocyte Esterase COVID-19 ([facility]) COVID-19 Clin Com 09/18/21 09/18/21 09/18/21 21:29 22:25 23:49 WBC RBC Hgb Hct MCV MCH MCHC RDW Plt Count MPV Immature Gran % (Auto) Neut % (Auto) Lymph % (Auto) [place] % (Auto) Eos % (Auto) Baso % (Auto) Lymph # (Auto) [place] # (Auto) Eos # (Auto) Baso # (Auto) Abs Immat Gran (auto) Absolute Neuts (auto) Absolute Nucleated RBC Nucleated RBC % (auto) PT Cancelled INR Cancelled APTT Cancelled aPTT Heparin Protocol D-Dimer High Sensitivty Sodium Potassium Chloride Carbon Dioxide Anion Gap BUN Creatinine Estim Creat Clear Calc Estimated GFR Random Glucose Calcium Total Bilirubin AST ALT Alkaline Phosphatase Troponin I High Sens Total Protein Albumin Urine Color YELLOW Urine Appearance CLEAR Urine pH 6.0 Ur Specific [place] 1.025 Urine Protein NEG Urine Glucose (UA) NEG Urine Ketones NEG Urine Blood NEG Urine Nitrite NEG Ur Leukocyte Esterase NEG COVID-19 ([facility]) Negative COVID-19 Clin Com See Note 09/18/21 09/18/21 09/19/21 23:49 23:49 00:33 WBC RBC Hgb Hct MCV MCH MCHC RDW Plt Count MPV Immature Gran % (Auto) Neut % (Auto) Lymph % (Auto) [place] % (Auto) Eos % (Auto) Baso % (Auto) Lymph # (Auto) [place] # (Auto) Eos # (Auto) Baso # (Auto) Abs Immat Gran (auto) Absolute Neuts (auto) Absolute Nucleated RBC Nucleated RBC % (auto) PT 12.6 INR 1.1 APTT aPTT Heparin Protocol 197.5 H* D-Dimer High Sensitivty Cancelled < 150 Sodium Potassium Chloride Carbon Dioxide Anion Gap BUN Creatinine Estim Creat Clear Calc Estimated GFR Random Glucose Calcium Total Bilirubin AST ALT Alkaline Phosphatase Troponin I High Sens 953.3 H* D Total Protein Albumin Urine Color Urine Appearance Urine pH Ur Specific [place] Urine Protein Urine Glucose (UA) Urine Ketones Urine Blood Urine Nitrite Ur Leukocyte Esterase COVID-19 ([facility]) COVID-19 Clin Com 09/19/21 09/19/21 09/19/21 04:01 06:46 06:46 WBC 12.3 H RBC 4.57 Hgb 12.7 Hct 39.6 MCV 86.7 MCH 27.8 MCHC 32.1 RDW 14.1 Plt Count 231 MPV 11.2 Immature Gran % (Auto) 0.3 Neut % (Auto) 69.5 Lymph % (Auto) 21.4 [place] % (Auto) 6.6 Eos % (Auto) 1.5 Baso % (Auto) 0.7 Lymph # (Auto) 2.6 [place] # (Auto) 0.8 Eos # (Auto) 0.2 Baso # (Auto) 0.1 Abs Immat Gran (auto) 0.04 H Absolute Neuts (auto) 8.5 H Absolute Nucleated RBC 0.000 Nucleated RBC % (auto) 0.0 PT 12.3 12.6 INR 1.1 1.1 APTT aPTT Heparin Protocol 86.0 H D D-Dimer High Sensitivty Sodium Potassium Chloride Carbon Dioxide Anion Gap BUN Creatinine Estim Creat Clear Calc Estimated GFR Random Glucose Calcium Total Bilirubin AST ALT Alkaline Phosphatase Troponin I High Sens Total Protein Albumin Urine Color Urine Appearance Urine pH Ur Specific [place] Urine Protein Urine Glucose (UA) Urine Ketones Urine Blood Urine Nitrite Ur Leukocyte Esterase COVID-19 ([facility]) COVID-19 Clin Com 09/19/21 09/19/21 09/19/21 06:46 06:46 11:41 WBC RBC Hgb Hct MCV MCH MCHC RDW Plt Count MPV Immature Gran % (Auto) Neut % (Auto) Lymph % (Auto) [place] % (Auto) Eos % (Auto) Baso % (Auto) Lymph # (Auto) [place] # (Auto) Eos # (Auto) Baso # (Auto) Abs Immat Gran (auto) Absolute Neuts (auto) Absolute Nucleated RBC Nucleated RBC % (auto) PT INR APTT aPTT Heparin Protocol 70.5 D-Dimer High Sensitivty Sodium 140 Potassium 4.1 Chloride 109 H Carbon Dioxide 24 Anion Gap 11 L BUN 26 H Creatinine 0.79 Estim Creat Clear Calc 72.4 Estimated GFR > 60 Random Glucose 122 H Calcium 8.8 Total Bilirubin AST ALT Alkaline Phosphatase Troponin I High Sens 2107.3 H* D Total Protein Albumin Urine Color Urine Appearance Urine pH Ur Specific [place] Urine Protein Urine Glucose (UA) Urine Ketones Urine Blood Urine Nitrite Ur Leukocyte Esterase COVID-19 ([facility]) COVID-19 Clin Com ECG Interpretation: EKG with sinus rhythm at 56/Min; mild IA prolongation. No clear ischemic findings. In the subsequent EKG, there are PVCs. Slight lateral nonspecific changes. Biphasic Ts in the anterior leads. Imaging Radiologist's impression: Impressions Chest X-Ray 09/18/21 20:46 IMPRESSION: No evidence of acute disease. Head CT 09/19/21 01:05 IMPRESSION: No acute intracranial pathology. Chest CT 09/19/21 01:10 IMPRESSION: No acute findings. Triple vessel coronary calcifications Assessment and Plan (1) Acute non-ST elevation myocardial infarction (NSTEMI): Status: Acute Plan Troponin levels noted. 415 followed by 953. Most recently 2106. Her symptoms as well as biomarker elevation clearly suggestive of non ST elevation myocardial infarction. EKG has nonspecific changes but still of concern. At this time, continue with IV heparin. Continue aspirin as well as statins. She is already on beta-blockers at home. That may be continued. With regard to flecainide, that was used in the past due to frequent PVCs that were symptomatic. However due to NSTEMI, we will stop it completely. If necessary, she will need a different agent in the future. Also discussed with the daughter who was at the bedside about plan including transfer to [facility] for cardiac catheterization and they are agreeable. At the current time, she is completely pain-free. Procedures Date of Service Date of Service: 09/19/21
[2021-09-19 12:35] VITALS: BP 107/62; PULSE 56; RESP 16; O2SAT 92
--- NOTE | 2021-09-19 14:30 | PC.NURSE ---
@ [id number] ERICA FROM [facility] PT TX LINE CALLS WITH ROOM ASSIGNMENT [facility], M7, ROOM 125 RN TO RN SHOULD BE CALLED TO [phone]
[2021-09-19 18:41] LABS: PTT Heparin Drip 31.6 SEC (53-77.9)
== END 2021-09-19 16:10 | disposition short-term general hospital (02) | DRG 282 ==
LOC: HO.ED 21:16 → HO.EDOVER 09-19 00:17
PROVIDERS: Admitting Provider Hospitalist; Emergency Provider Internal Medicine; PCP Family Medicine; Visit Provider Hospitalist
DX: I21.4 Non-ST elevation (NSTEMI) myocardial infarction (principal); R55 Syncope and collapse; K21.9 Gastro-esophageal reflux disease without esophagitis; Z20.822 Contact with and (suspected) exposure to COVID-19; Z91.010 Allergy to peanuts; Z88.7 Allergy status to serum and vaccine; Z79.02 Long term (current) use of antithrombotics/antiplatelets; Z79.82 Long term (current) use of aspirin; Z79.899 Other long term (current) drug therapy
CPT/HCPCS: 36415; 70450; 71045; 71250; 80048; 80053; 81003; 84484; 85025; 85379; 85610; 85730; 87635; 93005; 93306; 96365; 96375; 99285

== ENCOUNTER 2021-09-26 | Outpatient (REF) | payer MEDICARE, MEDICAID, SELFPAY | END 2021-09-26 00:01 | disposition home or self-care (01) | LOC: CF | PROVIDERS: Visit Provider Nurse Practitioner Family | DX: I21.4 Non-ST elevation (NSTEMI) myocardial infarction (principal); I49.3 Ventricular premature depolarization; Z98.890 Other specified postprocedural states | CPT/HCPCS: 99212 ==

== ENCOUNTER 2021-09-26 15:25 | Outpatient (REF) | payer MEDICARE, MEDICAID, SELFPAY | END 2021-09-26 15:26 | disposition home or self-care (01) | LOC: HO.HAP 15:25 | PROVIDERS: Visit Provider Family Medicine | DX: H90.3 Sensorineural hearing loss, bilateral (principal); I10 Essential (primary) hypertension; E78.5 Hyperlipidemia, unspecified; I21.4 Non-ST elevation (NSTEMI) myocardial infarction; I49.3 Ventricular premature depolarization; I47.2 Ventricular tachycardia; Z79.899 Other long term (current) drug therapy; Z98.890 Other specified postprocedural states | CPT/HCPCS: 99212; V5267 ==

== ENCOUNTER → 2021-10-08 11:27 | Outpatient (REF) | payer MEDICARE, MEDICAID, SELFPAY ==
--- NOTE | 2021-10-08 11:29 | HM_ITS ---
* Total monitoring time 3 days and 1 hour. * Underlying rhythm is sinus. Average rate 87/Min. Range 64 to 121/Min. * No atrial fibrillation or flutter or AV blocks or pauses. * Frequent ventricular ectopy. Overall burden 25%. 1 morphology. [address] couplets. 759 runs, longest 4 beats. * Symptoms described as 'other', associated with PVCs. MTDD
== END ==
LOC: HO.CARD 11:27
PROVIDERS: PCP Family Medicine; Visit Provider Nurse Practitioner Family
DX: I47.2 Ventricular tachycardia (principal); I49.3 Ventricular premature depolarization
CPT/HCPCS: 93242

== ENCOUNTER 2021-10-09 11:17 | Outpatient (REF) | payer MEDICARE, MEDICAID, SELFPAY | END 2021-10-09 11:18 | disposition home or self-care (01) | LOC: HO.HAP 11:17 | PROVIDERS: Visit Provider Family Medicine | DX: Z46.1 Encounter for fitting and adjustment of hearing aid (principal); H90.3 Sensorineural hearing loss, bilateral | CPT/HCPCS: V5014; V5267; V5275 ==

== ENCOUNTER 2021-11-14 10:44 | Outpatient (REF) | payer MEDICARE, MEDICAID, SELFPAY ==
--- NOTE | 2021-11-15 08:16 | MHC.AU.MED ---
Medical Clearance for Hearing Instrumentation Date: 11/15/21 Patient Name: Araseli Leary Date of : 1955 Referring Provider: Jenny Vázquez MD We have seen your patient on 11/14/21 and have determined that they are a candidate for amplification (See accompanying report). Specifically, they would benefit from: Hearing aid use in both ears There is a statute that addresses Medical Evaluation Requirements prior to fitting a patient with a hearing aid. According to [place] statute 265 CMR:6.03(1), (a) General. Except as provided in 265 CMR 6.03(1)(b), a excellence manager shall not sell a hearing aid unless the prospective user has presented to the excellence manager a written statement signed by a licensed physician that states that the patient's hearing loss has been medically evaluated and the patient may be considered a candidate for a hearing aid. The medical evaluation must have taken place within the preceding six months. Please note: Due to the [place] Statute referenced above, we cannot accept a signature other than that of a licensed physician. ELECTRIC DEICER INSPECTOR and PA signatures cannot be accepted. I am in agreement with the above recommendation. There is no medical contraindication for hearing instrumentation. Physician Signature Date Physician Name (Printed)
--- NOTE | 2021-11-15 08:18 | MHC.AU.AHA ---
Adult Audiological Evaluation Date of Visit: 11/14/21 Reason for Appointment: History of hearing loss. Patient arrives to determine if there has been a change in hearing. Previous Hearing Test Results: At this clinic on 05/25/2019- Moderate/moderately-severe sensorineural hearing loss bilaterally. Response reliability was fair, as SRTs were at 40 dBHL. Ear History: Recent Ear Drainage: None Reported Recent Ear Pain: None Reported Medical History: Recent hospitalization for NSTEMI. History of asthma, hypertension, Type 2 Diabetes Hearing Instrument History- Right Ear: Rvda Master Certified Rv Technician: Phonak Model: Elevation PharmaceuticalsEO B50-R Serial Number: [id number] Battery Size: Rechargeable Repair Warranty: Loss and Damage Warranty: Dispensed By: [facility] Date of Fittin06/05/2016 Hearing Instrument History- Left Ear: Rvda Master Certified Rv Technician: [place] Model: [employer]vation PharmaceuticalsEO B50-R Serial Number: [id number] Battery Size: Rechargeable Warranty: Loss and Damage Warranty: Dispensed By: [facility] Date of Fittin06/05/2016 Otoscopy: Right Ear: Unremarkable Left Ear: Unremarkable Tympanometry: Tympanometry performed due to: To assess integrity of the middle ear system Right Ear: Hypercompliant Middle Ear System (Type Ad) Left Ear: Normal Middle Ear System (Type A) Hearing Evaluation: Transducer(s) Used: Insert Earphones Method: Conventional Audiometry Stimuli Used: Pure Tones Right Ear: Description of Hearing: Mild sensorineural hearing loss Left Ear: Description of Hearing: Mild sensorineural hearing loss Speech Recognition Threshold (SRT): Method Used: Monitored Live Voice Stimuli Used: Spondee Words Right Ear: 35 dBHL Left Ear: 35 dBHL Word Discrimination: Method: Recorded Lists Word Lists Used: W-22 Right Ear: 92% at 80 dBHL Left Ear: 88% at 75 dBHL Most Comfortable Level (MCL): Right Ear: 80 dBHL Left Ear: 75 dBHL Interpretation of Results: Thresholds have improved since the 2019 evaluation. This is likely due to the patient's improved test reliability. Today's SRTs are consistent with the tonal thresholds, as well as the 2020 SRTs. Recommendations: Audiological re-evaluation in one year. See Hearing Aid Evaluation report for more information. Diagnosis: Primary Diagnosis: H90.3 Bilateral Sensorineural Hearing Loss Signature: Provider: Benjamin Leon, CCC-A
--- NOTE | 2021-11-15 08:19 | MHC.AU.HAS ---
Hearing Aid Evaluation Date of Visit: 11/14/21 Historical Information: Description of Hearing: Mild sensorineural hearing loss bilaterally Current personal amplification information, if applicable: A pair of Phonak Audeo B50-R, obtained on 06/05/2016 Summary: Patient was seen for audiological re-evaluation. See separate report for details. New hearing aid options were discussed. Patient is interested in Bluetooth connectivity, as she currently has to take her hearing aids out if she needs to use headphones. She would like to try domes instead of slim tips. A new left-sided mold was also dispensed for her current hearing aids, as the old mold had developed a crack. Hearing Aid Prescription: Based on the individual?s shared listening needs, communication environments, dexterity, desire for connectivity, and personal preferences, the following prescription for amplification has been made: Both Ears: Straightening Press Operator Helper: PhonDamage Hounds Model: Audeo P70-R Battery Size: Rechargeable Color: Graphite Paige Gauge Controller: 1M Action Taken/Action Needed: Medical Clearance to be requested from PCP/ENT. Hearing Instrument Fitting to be scheduled when materials arrive Primary Diagnosis: H90.3 Bilateral Sensorineural Hearing Loss Signature: Provider: Benjamin Leon, CCC-A
== END 2021-11-14 10:45 | disposition home or self-care (01) ==
LOC: HO.SH 10:44
PROVIDERS: Visit Provider Family Medicine
DX: Z01.118 Encounter for examination of ears and hearing with other abnormal findings (principal); Z46.1 Encounter for fitting and adjustment of hearing aid; H90.3 Sensorineural hearing loss, bilateral
CPT/HCPCS: 92557; 92567; 92591; V5264

== ENCOUNTER 2022-01-09 13:42 | Outpatient (REF) | payer MEDICARE, MEDICAID, SELFPAY ==
[2022-01-09 14:39] LABS: Cholesterol 134 mg/dL; HDL Cholesterol 43 mg/dL; LDL Cholesterol Calculated 52 mg/dl; Triglycerides 196 mg/dL
== END 2022-01-09 13:43 | disposition home or self-care (01) ==
LOC: HO.LAB 13:42
PROVIDERS: PCP Family Medicine; Visit Provider Nurse Practitioner Family
DX: I21.4 Non-ST elevation (NSTEMI) myocardial infarction (principal); I25.10 Atherosclerotic heart disease of native coronary artery without angina pectoris; I49.3 Ventricular premature depolarization
CPT/HCPCS: 36415; 80061; 99212

== ENCOUNTER 2022-01-27 13:54 | Outpatient (REF) | payer MEDICARE, MEDICAID, SELFPAY | END 2022-01-27 13:55 | disposition home or self-care (01) | LOC: HO.HAP 13:54 | PROVIDERS: Visit Provider Family Medicine | DX: Z46.1 Encounter for fitting and adjustment of hearing aid (principal); H90.3 Sensorineural hearing loss, bilateral | CPT/HCPCS: V5011; V5020; V5160; V5261 ==

== ENCOUNTER 2022-02-04 13:43 | Outpatient (REF) | payer MEDICARE, MEDICAID, SELFPAY ==
--- NOTE | ~2022-02-04 | MM_ITS ---
EXAMINATION: MM SCREENING DIGITAL BREAST TOMOSYNTHESIS, BILATERAL CLINICAL INFORMATION: Screening. Asymptomatic. The lifetime risk of breast cancer based on the Tyrer-Cuzick Model is 4.7%. COMPARISON: Mammography: December 23, 2019 and dating back to November 23, 2013 TECHNIQUE: Digital breast tomosynthesis is performed in both the craniocaudal and mediolateral oblique views along with computer-aided detection (CAD). Synthesized 2D images are generated from the tomosynthesis. FINDINGS: There are scattered areas of fibroglandular density (ACR BI-RADS breast composition Category b). There are no significant masses, abnormal calcifications, or other abnormalities. MM/MM tomosynthesis screening BI IMPRESSION: No significant changes from prior exam. ASSESSMENT: BI-RADS 1: Negative RECOMMENDATION: Routine annual mammography screening. This patient's information was entered into a reminder system with a target due date for their next mammogram.
== END 2022-02-04 13:44 | disposition home or self-care (01) ==
LOC: HO.MAMMO 13:43
PROVIDERS: PCP Family Medicine; Visit Provider Family Medicine
DX: Z12.31 Encounter for screening mammogram for malignant neoplasm of breast (principal)
CPT/HCPCS: 77063; 77067

== ENCOUNTER 2022-05-30 16:17 | Emergency (ER) | payer MEDICARE, MEDICAID, SELFPAY ==
--- NOTE | ~2022-05-30 | XR_ITS ---
EXAMINATION: X-RAY RIGHT SHOULDER X-RAY RIGHT ELBOW X-RAY RIGHT WRIST/HAND CLINICAL INFORMATION: Fall. COMPARISON: Radiograph of the right shoulder 12/08/2017. TECHNIQUE: 4 views of the right shoulder. 3 views of the right elbow. 4 views of the right wrist/hand. FINDINGS: Right shoulder: Avulsion fracture of the lesser tuberosity of the right humerus. The humeral head is well-seated in the glenoid. The AC joint is maintained. Right elbow: Degenerative enthesophytes along the medial epicondyle. No acute fractures or malalignment. No joint effusion. Right wrist/hand: Age indeterminate deformity at the tuft of the distal third phalanx. No Malalignment. Mild degenerative osteoarthritis of the first carpometacarpal joint. XR/XR hand wrist RT IMPRESSION: RIGHT SHOULDER: Avulsion fracture of the lesser tuberosity of the right humerus. RIGHT ELBOW: No acute fractures or malalignment. RIGHT WRIST/HAND: Cortical bony deformity at the tuft of the distal third phalanx. Correlate with point tenderness.
--- NOTE | ~2022-05-30 | CT_ITS ---
EXAMINATION: HEAD CT WITHOUT CONTRAST CERVICAL SPINE CT WITHOUT CONTRAST CLINICAL INFORMATION: Status post fall COMPARISON: CT head 09/19/2021 TECHNIQUE: Contiguous axial imaging of the head was performed without the administration of IV contrast. Axial multidetector volumetric images were also performed through the cervical spine without contrast. Multiplanar reconstructed images in coronal and sagittal orientations were submitted. DOSE: 952 mGy-cm FINDINGS: HEAD: There is no evidence of acute intracranial hemorrhage or territorial infarction. No abnormal mass-effect or midline shift. No extra-axial fluid collections. Paige to white matter differentiation is well preserved. The ventricles are normal in size and configuration. No acute calvarial fracture. The sinuses and mastoid air cells are clear. CERVICAL SPINE: There is slight reversal of the cervical curvature. Mild levoconvex curvature of the spine. There is anatomic alignment of the vertebral bodies and posterior elements. The atlantoaxial and atlantooccipital articulations are maintained. There are chronic appearing ossifications superior to the C1-C2 articulation. Vertebral body heights are are maintained. No evidence of acute fracture. There is multilevel disc height loss and endplate osteophytes. Multilevel facet degeneration No evidence of acute fracture. No prevertebral soft tissue swelling. No suspicious findings in lung apices.. The thyroid gland is unremarkable. CT/CT head/brain wo IV con IMPRESSION: 1. No acute evidence of acute intracranial hemorrhage or edematous territorial infarction.. 2. No CT evidence of acute fracture or malalignment in the cervical spine. 3. Cervical spondylosis.
--- NOTE | ~2022-05-30 | XR_ITS ---
EXAMINATION: X-RAY RIGHT SHOULDER X-RAY RIGHT ELBOW X-RAY RIGHT WRIST/HAND CLINICAL INFORMATION: Fall. COMPARISON: Radiograph of the right shoulder 12/08/2017. TECHNIQUE: 4 views of the right shoulder. 3 views of the right elbow. 4 views of the right wrist/hand. FINDINGS: Right shoulder: Avulsion fracture of the lesser tuberosity of the right humerus. The humeral head is well-seated in the glenoid. The AC joint is maintained. Right elbow: Degenerative enthesophytes along the medial epicondyle. No acute fractures or malalignment. No joint effusion. Right wrist/hand: Age indeterminate deformity at the tuft of the distal third phalanx. No Malalignment. Mild degenerative osteoarthritis of the first carpometacarpal joint. XR/XR shoulder RT min 2V IMPRESSION: RIGHT SHOULDER: Avulsion fracture of the lesser tuberosity of the right humerus. RIGHT ELBOW: No acute fractures or malalignment. RIGHT WRIST/HAND: Cortical bony deformity at the tuft of the distal third phalanx. Correlate with point tenderness.
--- NOTE | ~2022-05-30 | CT_ITS ---
EXAMINATION: HEAD CT WITHOUT CONTRAST CERVICAL SPINE CT WITHOUT CONTRAST CLINICAL INFORMATION: Status post fall COMPARISON: CT head 09/19/2021 TECHNIQUE: Contiguous axial imaging of the head was performed without the administration of IV contrast. Axial multidetector volumetric images were also performed through the cervical spine without contrast. Multiplanar reconstructed images in coronal and sagittal orientations were submitted. DOSE: 952 mGy-cm FINDINGS: HEAD: There is no evidence of acute intracranial hemorrhage or territorial infarction. No abnormal mass-effect or midline shift. No extra-axial fluid collections. Paige to white matter differentiation is well preserved. The ventricles are normal in size and configuration. No acute calvarial fracture. The sinuses and mastoid air cells are clear. CERVICAL SPINE: There is slight reversal of the cervical curvature. Mild levoconvex curvature of the spine. There is anatomic alignment of the vertebral bodies and posterior elements. The atlantoaxial and atlantooccipital articulations are maintained. There are chronic appearing ossifications superior to the C1-C2 articulation. Vertebral body heights are are maintained. No evidence of acute fracture. There is multilevel disc height loss and endplate osteophytes. Multilevel facet degeneration No evidence of acute fracture. No prevertebral soft tissue swelling. No suspicious findings in lung apices.. The thyroid gland is unremarkable. CT/CT cervical spine wo IV con IMPRESSION: 1. No acute evidence of acute intracranial hemorrhage or edematous territorial infarction.. 2. No CT evidence of acute fracture or malalignment in the cervical spine. 3. Cervical spondylosis.
--- NOTE | ~2022-05-30 | XR_ITS ---
EXAMINATION: X-RAY RIGHT SHOULDER X-RAY RIGHT ELBOW X-RAY RIGHT WRIST/HAND CLINICAL INFORMATION: Fall. COMPARISON: Radiograph of the right shoulder 12/08/2017. TECHNIQUE: 4 views of the right shoulder. 3 views of the right elbow. 4 views of the right wrist/hand. FINDINGS: Right shoulder: Avulsion fracture of the lesser tuberosity of the right humerus. The humeral head is well-seated in the glenoid. The AC joint is maintained. Right elbow: Degenerative enthesophytes along the medial epicondyle. No acute fractures or malalignment. No joint effusion. Right wrist/hand: Age indeterminate deformity at the tuft of the distal third phalanx. No Malalignment. Mild degenerative osteoarthritis of the first carpometacarpal joint. XR/XR elbow RT min 3V IMPRESSION: RIGHT SHOULDER: Avulsion fracture of the lesser tuberosity of the right humerus. RIGHT ELBOW: No acute fractures or malalignment. RIGHT WRIST/HAND: Cortical bony deformity at the tuft of the distal third phalanx. Correlate with point tenderness.
--- NOTE | ~2022-05-30 | XR_ITS ---
EXAMINATION: XR KNEE, RIGHT CLINICAL INFORMATION: Fall. COMPARISON: Radiograph of the right knee 06/14/2019. TECHNIQUE: Four views of the right knee. FINDINGS: No acute fractures or subluxation. Mild joint space narrowing of the medial and patellofemoral compartments. Small marginal osteophytes. No chondrocalcinosis. No erosions. Small joint effusion. Scattered vascular calcifications. XR/XR knee RT 4V IMPRESSION: 1. No acute fractures or subluxation. 2. Mild degenerative osteoarthritis. 3. Small joint effusion.
--- NOTE | 2022-05-30 17:17 | ED.FALL ---
HPI - Fall General Chief Complaint: Fall <TORREY Owen - Last Filed: 05/30/22 17:24> Stated Complaint: Fall <TORREY Owen - Last Filed: 05/30/22 17:24> Time Seen by Provider: 05/30/22 19:09 <TORREY Owen - Last Filed: 05/30/22 17:24> Source: patient, family and RN notes reviewed <Jairon Pires - Last Filed: 05/30/22 19:41> Mode of arrival: ambulatory <Jairon Pires - Last Filed: 05/30/22 19:41> Limitations: no limitations <Jairon Pires - Last Filed: 05/30/22 19:41> History of Present Illness HPI Narrative: 67-year-old female past medical history significant for coronary artery disease, severe, back pain, [id number] diabetes, constipation, GERD who presents for evaluation after a fall. Patient reports that she was at home when she got her foot caught in a piece of furniture and fell onto her right side. She reports that she tried to break her fall with her right arm. She did strike her head above the right eye but did not lose consciousness She complains of pain to the right shoulder, elbow, wrist and right knee. She is ambulatory with a cane She complains of 8 in 10 pain mostly to the right shoulder and right knee. The patient does report a history of surgery to her right shoulder 4 years ago Denies any headache or loss of conscious <Jairon Pires - Last Filed: 05/30/22 19:41> Related Data Home Medications: Home Medications Medication Instructions Recorded Confirmed aspirin 81 mg tablet,delayed 81 mg PO DAILY 02/09/20 01/09/22 release loratadine 10 mg tablet 10 mg PO BEDTIME 02/09/20 01/09/22 montelukast 10 mg tablet 10 mg PO BEDTIME 02/09/20 01/09/22 pregabalin 50 mg capsule (Lyrica) 50 mg PO BID 02/09/20 01/09/22 omeprazole 20 mg capsule,delayed 20 mg PO DAILY@0630 07/05/20 01/09/22 release albuterol sulfate 90 mcg/actuation 2 puff PO Q4H 09/26/21 01/09/22 aerosol inhaler (ProAir HFA) clopidogrel 75 mg tablet 75 mg PO DAILY 09/26/21 01/09/22 Previous Rx's Medication Instructions Recorded atorvastatin 80 mg tablet 80 mg PO BEDTIME #30 tabs 09/19/21 nitroglycerin 0.4 mg sublingual 0.4 mg sublingual Q5MX3 PRN Chest 09/19/21 tablet (Nitrostat) Pain #30 tabs metoprolol succinate 50 mg 100 mg PO QAM #60 tabs 10/17/21 tablet,extended release 24 hr <TORREY Owen - Last Filed: 05/30/22 17:24> Allergies/Adverse Reactions: Allergies Allergy/AdvReac Type Severity Reaction Status Date / Time peanut Allergy Severe angioedema Verified 05/30/22 17:24 lisinopril [LISINOPRIL] Allergy Intermediate RASH, cough Verified 05/30/22 17:24 zoster vaccine live Allergy Intermediate LOCALIZED Verified 05/30/22 17:24 [SHINGLES VACCINE] REDNESS, SWELLING, FEVER,COUGH latex [LATEX] Allergy Unknown RASH Verified 05/30/22 17:24 pineapple [PINEAPPLE] Allergy Unknown RASH Verified 05/30/22 17:24 strawberry [STRAWBERRY] Allergy Unknown RASH Verified 05/30/22 17:24 adhesive Allergy Blister Verified 05/30/22 17:24 <TORREY Owen - Last Filed: 05/30/22 17:24> Review of Systems Constitutional: Constitutional: Reports as per HPI, Denies chills and Denies fatigue <Jairon Pires - Last Filed: 05/30/22 19:41> Cardiovascular: Cardiovascular: Denies chest pain and Denies dyspnea <Jairon Pires - Last Filed: 05/30/22 19:41> Respiratory: Respiratory: Denies cough and Denies dyspnea <Jairon Pires - Last Filed: 05/30/22 19:41> Gastrointestinal: Gastrointestinal: Denies abdominal pain, Denies constipation and Denies vomiting <Jairon Pires - Last Filed: 05/30/22 19:41> Genitourinary: Genitourinary: Denies dysuria <Jairon Pires - Last Filed: 05/30/22 19:41> Musculoskeletal: Musculoskeletal: Denies back pain and Reports arthralgias <Jairon Pires - Last Filed: 05/30/22 19:41> Comments: Pain to right shoulder, elbow wrist, knee <Jairon Pires - Last Filed: 05/30/22 19:41> Endocrine: Endocrine: Denies fatigue <Jairon Pires - Last Filed: 05/30/22 19:41> [facility] Past Medical History Medical History: Medical History (Updated 05/30/22 @ 19:40 by Jairon Pires) Hemorrhoids with complication NSVT (nonsustained ventricular tachycardia) PVC (premature ventricular contraction) <TORREY Owen - Last Filed: 05/30/22 17:24> Surgical History: Surgical History History of esophagogastroduodenoscopy (EGD) History of lumbar laminectomy History of shoulder surgery (~04/29/18) Hx of colonoscopy <TORREY Owen - Last Filed: 05/30/22 17:24> Family History Family History: Family History Father Cardiovascular disease Mother Osteoarthritis <TORREY Owen - Last Filed: 05/30/22 17:24> Social History Social History: Social History Household Members: Spouse Alcohol intake: never Patient Tobacco Use Status: Never used Tobacco Advance Directives: No Advance Directives Information Provided: Yes service: No Current occupational status: unemployed Current occupation: rt handed <TORREY Owen - Last Filed: 05/30/22 17:24> Physical Exam Vital Signs: Vital Signs: Last Vital Signs Temp 98.1 F 05/30/22 17:18 Pulse 68 05/30/22 17:18 Resp 16 05/30/22 17:18 BP 140/86 H 05/30/22 17:18 Pulse Ox 99 05/30/22 17:18 O2 Del Method 05/30/22 17:18 BMI result Body Mass Index 33.3 <TORREY Owen - Last Filed: 05/30/22 17:24> Vital Signs: Last Vital Signs Temp 98.1 F 05/30/22 17:18 Pulse 68 05/30/22 17:18 Resp 16 05/30/22 17:18 BP 140/86 H 05/30/22 17:18 Pulse Ox 99 05/30/22 17:18 O2 Del Method 05/30/22 17:18 BMI result Body Mass Index 33.3 < Last Filed: 05/30/22 19:41> Const: General: cooperative, healthy appearing, comfortable, no acute distress, alert, awake and Physically active < Last Filed: 05/30/22 19:41> Nutritional Appearance: thin < Last Filed: 05/30/22 19:41> Orientation/consciousness: patient oriented x3 < Last Filed: 05/30/22 19:41> Limitations: no limitations < Last Filed: 05/30/22 19:41> HEENT: Head: Yes normocephalic and Yes atraumatic < Last Filed: 05/30/22 19:41> Face and sinus: Yes face symmetric < Last Filed: 05/30/22 19:41> Mouth: Normal oral and palatal mucosa present and tongue normal < Last Filed: 05/30/22 19:41> Teeth and gingiva: dentition normal < Last Filed: 05/30/22 19:41> Throat: Yes posterior oropharynx normal ( without erythema, tonsillar exudates or edema), No peritonsillar mass, No uvula laterally displaced and No uvular edema < Last Filed: 05/30/22 19:41> Neck: Neck: Yes normal visual inspection, Yes full ROM, No no meningeal signs, Yes supple and No lymphadenopathy < Last Filed: 05/30/22 19:41> Chest: Chest palpation & inspection: normal inspection of the chest, normal palpation of entire chest wall and no crepitus < Last Filed: 05/30/22 19:41> Resp: Effort & Inspection: normal respiratory effort and able to speak in complete sentences <Jairon KovacsRaphael - Last Filed: 05/30/22 19:41> Auscultation: clear to auscultation bilaterally <Jairon Fermín Last Filed: 05/30/22 19:41> Cardio: Rate: regular rate < Last Filed: 05/30/22 19:41> Rhythm: regular rhythm < Last Filed: 05/30/22 19:41> Back/Spine/Pelvis: Cervical Spine: cervical ROM normal and No cervical muscular tenderness < Last Filed: 05/30/22 19:41> Skin: General skin exam: no rashes or lesions noted < Last Filed: 05/30/22 19:41> Neuro: General: patient oriented x3 and No no meningeal signs < Last Filed: 05/30/22 19:41> Extrem: Right upper extremity: shoulder/upper arm Details: normal to inspection and tenderness Location: of the proximal humerus; not of the clavicle, not of the A-C joint and not of the scapula, elbow/forearm Details: tenderness and normal ROM; no swelling, ROM normal and no ecchymosis, wrist Details: tenderness, normal ROM and ecchymosis (Based on the right from) and Extremity exam: right hand (No edema, ecchymosis to any of the digits to the right hand. No tenderness) <Jairon ODurango - Last Filed: 05/30/22 19:41> Right lower extremity: knee Details: tenderness, swelling, normal ROM and abrasion; no deformity <Jairon Fermín Last Filed: 05/30/22 19:41> Course Course Course Narrative: RME-17:15PM - 65 yo female with history of DM, chronic back pain, sciatica, NSVT, GERD who is presenting to the ER with her daughter patient speaks Egyptian although daughter can translate with complaints of a head injury, right shoulder, right elbow, right hand and wrist and right knee pain after she had a mechanical fall prior to arrival. She was in the bedroom and she was making her bed when suddenly her leg got stuck and she fell face forward. She was able to cough for her . Although they are unsure if there was loss of consciousness. She denies any symptoms prior to the fall. She denies any other injuries complaints or concerns at this time. Plan: Will obtain CT scan of brain/cervical spine, right shoulder x-ray, right elbow x-ray, right hand and wrist x-ray and right knee x-ray. Patient to be seen in emergency [facility] <TORREY Owen - Last Filed: 05/30/22 17:24> Medical Decision Making Medical Decision Making MDM Narrative: 67-year-old female presents for evaluation of a mechanical fall after tripping on furniture. She struck her right side of her body in the right side of her head. CT scan of brain and cervical spine without traumatic injuries. X-rays of the right shoulder are significant for a small avulsion fracture to the lesser tuberosity. The patient does have a history of previous surgery here. The patient is tender to this area, we will treat as an acute fracture. Patient was placed in a sling and will be given orthopedic follow-up. X-rays of the right knee, risk negative. X-ray of the right hand shows a questionable deformity of the distal right 3rd phalanx. The patient has no signs of trauma to the area and no tenderness to the area, this is felt to be chronic. The x-ray of the right knee without acute deformity. <Jairon Pires - Last Filed: 05/30/22 19:41> Differential Diagnosis Shoulder fracture Shoulder dislocation Elbow fracture Wrist fracture Hand fracture next item knee fracture Dislocation Intracranial hemorrhage next item cervical fracture <Jairon Pires - Last Filed: 05/30/22 19:41> Independent Interpretation I performed an independent interpretation of an: Plain X-Ray <Jairon Pires - Last Filed: 05/30/22 19:41> Interpretation: Visualized avulsion fracture of the right proximal humerus. Agree with no acute fracture of the right elbow or wrist. Do not see any acute fracture of the right hand. No fracture of the right knee <Jairon Pires - Last Filed: 05/30/22 19:41> Radiology Impression Discussion of test interpretation with radiology: I have reviewed the radiologist's reading. <Jairon Pires - Last Filed: 05/30/22 19:41> Radiologist Impression: No traumatic injuries of the brain and cervical spine <Jairon Pires - Last Filed: 05/30/22 19:41> External Record Review External record reviewed: Inpatient record and Outpatient record <Jairon Pires - Last Filed: 05/30/22 19:41> Discharge Plan Discharge Clinical Impression: Fracture, humerus closed <TORREY Owen - Last Filed: 05/30/22 17:24> Patient Disposition: Home, Self-Care <TORREY Owen - Last Filed: 05/30/22 17:24> Instructions: How to Use a Sling (ED) <TORREY Owen Last Filed: 05/30/22 17:24> Additional Instructions: Your x-rays were all negative with the exception of a small avulsion fracture to the right shoulder. Wear the sling when you are up and about throughout the day, do not wear overnight. Follow-up with Orthopedics the number provided. You may use Tylenol for any discomfort. Use ice to the swelling <TORREY Owen - Last Filed: 05/30/22 17:24> Prescriptions: No Action metoprolol succinate 50 mg tablet extended release 24 hr 100 mg PO QAM Qty: 60 3RF nitroglycerin [Nitrostat] 0.4 mg Tablet, Sublingual 0.4 mg sublingual Q5MX3 PRN (Reason: Chest Pain) Qty: 30 0RF atorvastatin 80 mg tablet 80 mg PO BEDTIME Qty: 30 0RF aspirin 81 mg tablet,delayed release (DR/EC) 81 mg PO DAILY loratadine 10 mg tablet 10 mg PO BEDTIME pregabalin [Lyrica] 50 mg capsule 50 mg PO BID montelukast 10 mg tablet 10 mg PO BEDTIME omeprazole 20 mg capsule,delayed release(DR/EC) 20 mg PO DAILY@0630 clopidogrel 75 mg tablet 75 mg PO DAILY albuterol sulfate [ProAir HFA] 90 mcg/actuation HFA aerosol inhaler 2 puff PO Q4H <TORREY Owen Last Filed: 05/30/22 17:24> Referrals: Neil Gar MD [Physician] - (right proximal humerus avulsion fx) <TORREY Owen - Last Filed: 05/30/22 17:24>
[2022-05-30 17:18] VITALS: BP 140/86; PULSE 68; RESP 16; TEMP 36.7; O2SAT 99; BMI 33.3
--- OUTSIDE RECORDS SUMMARY | 2022-05-30 18:40 | XMS_ITS | Continuity of Care Document ---
:1955 Author Organization [facility] Address [address] [place] [id number]- Care Team Providers Name Role Phone Gurpreet LINDO, Jenny Primary Care Physician [id number] Date(s): 09/19/21 - 09/21/[address] [id number] Discharge Disposition: A-D/C Home Attending Physician: Melvin Alejo MD Admitting Physician: Natasha Serrano MD Referring Physician: Natasha Serrano MD Allergies, Adverse Reactions, Alerts Substance Reaction Severity Status lisinopril Active Peanuts Active Medications aspirin 81 mg oral delayed release tablet = 81 mg, By Mouth, Daily, # 30 tablet, 1 Refills, Maintenance, 09/21/21 10:38:00 EDT, EC Tablet, [facility], Partial fill upon patient request if the prescription is for a schedule II opioid drug., 159, cm, 09/21/21 7:45:00 EDT, He... Start Date: 09/21/21 Status: Orderedatorvastatin 80 mg oral tablet 1 tablet = 80 mg, By Mouth, Daily at bedtime, # 30 tablet, 0 Refills, Maintenance, 09/21/21 12:53:00EDT, Tablet, [facility], Partial fill upon patient request if the prescription is for a schedule II opioid drug., 159, cm, 09/21/21 7:45... Start Date: 09/21/21 Status: Orderedclopidogrel 75 mg oral tablet 75 mg, 1, tablet, By Mouth, Daily, # 30 tablet, Refills 0, Tot. Refills 0, Maintenance, 09/21/21 12:53:00 EDT, Route to Pharmacy Electronically, [facility], Partial fill upon patient request if the prescription is for a schedule II opioi... Start Date: 09/21/21 Status: Orderedloratadine 10 mg oral capsule 1 capsule, By Mouth, Daily at bedtime, # 10 capsule, 0 Refills, Maintenance, 09/02/10 14:08:50 EDT, Capsule Start Date: 09/02/10 Status: Orderedmetoprolol 50 mg oral tablet, extended release 100 mg, XL Tablet, By Mouth, 09/21/21 9:00:00 EDT Start Date: 09/21/21 Stop Date: 09/21/21 Status: Completedmetoprolol 50 mg oral tablet, extended release 100 mg, 2, tablet, By Mouth, Daily, # 60 tablet, Refills 0, Tot. Refills 0, Maintenance, 09/21/21 10:38:00 EDT, Route to Pharmacy Electronically, [facility], Partial fill upon patient request if the prescription is for a schedule I... Start Date: 09/21/21 Status: Orderedmontelukast 10 mg oral tablet 10 mg, 1, tablet, By Mouth, Daily in PM, # 30 tablet, Refills 0, Maintenance, 09/19/21 18:35:00 EDT,Partial fill upon patient request if the prescription is for a schedule II opioid drug. Start Date: 09/19/21 Status: Orderedomeprazole 20 mg oral enteric coated capsule 1 capsule = 20 mg, By Mouth, Daily, # 30 capsule, 0 Refills, Maintenance, 09/19/21 18:34:00 EDT, EC Capsule, Partial fill upon patient request if the prescription is for a schedule II opioid drug. Start Date: 09/19/21 Status: Orderedpregabalin 50 mg oral capsule 1 capsule = 50 mg, By Mouth, 2 times a day, 0 Refills, Maintenance, 09/19/21 18:33:00 EDT, Partial fill upon patient request if the prescription is for a schedule II opioid drug. Start Date: 09/19/21 Status: Ordered Vital Signs Most recent to oldest 1 2 3 [Reference Range]: Height 159 cm 159 cm 159 cm (09/21/21 7:45 AM) (09/21/21 2:12 AM) (09/20/21 7:2 9 PM) Weight 81.8 kg 81.7 kg 81.7 kg (09/20/21 2:11 AM) (09/20/21 2:06 AM) (09/19/21 4:49 PM) Oxygen Saturation [94-100 %] 100 % 96 % 99 % (09/21/21 7:45 AM) (09/21/21 2:12 AM) (09/20/21 7:2 9 PM) Pulse Rate [55-90 bpm] 70 bpm 70 bpm 76 bpm (09/21/21 9:05 AM) (09/21/21 7:45 AM) (09/21/21 2:1 2 AM) Blood Pressure [90-138/55-84 mm 135/80 mm Hg 135/80 mm Hg 114/86 mm Hg Hg] (09/21/21 9:05 AM) (09/21/21 7:45 AM) (09/21/21 2:1 2 AM) Respiratory Rate [16-30 br/min] 19 br/min 20 br/min 20 br/min (09/21/21 7:45 AM) (09/21/21 2:12 AM) (09/20/21 7:2 9 PM) Temperature [96.8-100.4 DegF] 97.6 DegF 97.1 DegF 97 .7 DegF (09/21/21 7:45 AM) (09/21/21 2:12 AM) (09/20/21 7:2 9 PM) Mode of Delivery (Oxygen) Room air Room air Room a ir (09/21/21 7:45 AM) (09/21/21 2:12 AM) (09/20/21 7:2 9 PM) Blood pressure sites Arm, right Arm, left Arm, left (09/21/21 7:45 AM) (09/21/21 2:12 AM) (09/20/21 7:2 9 PM) Temperature Route Temporal Temporal Temporal (09/21/21 7:45 AM) (09/21/21 2:12 AM) (09/20/21 7:2 9 PM) Dry Weight 81.7 kg (09/19/21 4:49 PM) Weight Obtained Via Bed scale Bed scale (09/20/21 2:11 AM) (09/19/21 4:49 PM) Dry Weight Obtained Via Bed scale (09/19/21 4:49 PM)
--- OUTSIDE RECORDS SUMMARY | 2022-05-30 18:40 | XMS_ITS | Continuity of Care Document ---
:1955 Author Organization [facility] Address [address] [place] [id number]- Care Team Providers Name Role Phone Gurpreet LINDO, Jenny Primary Care Physician Encounter [facility] Date(s): 08/07/20 - 10/11/[address] [address] Attending Physician: Bishnu Cesar MD Admitting Physician: Bishnu Cesar MD Referring Physician: Bishnu Cesar MD Allergies, Adverse Reactions, Alerts Substance Reaction Severity Status lisinopril Active Peanuts Active Medications amitriptyline 10 mg oral tablet 1 tablet = 10 mg, By Mouth, Daily at bedtime, 0 Refills, Maintenance Start Date: 09/02/10 Status: OrderedAspirin 0 Refills, Maintenance Start Date: 09/02/10 Status: Orderedcyclobenzaprine 5 mg oral tablet 1 tablet = 5 mg, By Mouth, 3 times a day, 0 Refills, Maintenance Start Date: 09/02/10 Status: OrderedEpiPen 2-Jordi = 0.3 mg, Intramuscular, Once, 0 Refills, Maintenance Start Date: 09/02/10 Status: OrderedFlovent HFA 220 mcg/inh inhalation aerosol with adapter 1 puffs, Inhalation, 2 times a day, 0 Refills, Maintenance Start Date: 09/02/10 Status: Orderedgabapentin 300 mg oral capsule 1 capsule = 300 mg, By Mouth, 3 times a day, 0 Refills, Maintenance Start Date: 09/02/10 Status: Orderedhydrochlorothiazide 25 mg oral tablet 1 tablet = 25 mg, By Mouth, Daily, 0 Refills, Maintenance Start Date: 09/02/10 Status: Orderedloratadine 10 mg oral capsule 1 capsule, By Mouth, Daily, # 10 capsule, 0 Refills, Maintenance, Capsule Start Date: 09/02/10 Status: Orderedlosartan 25 mg oral tablet 1 tablet = 25 mg, By Mouth, Daily, 0 Refills, Maintenance Start Date: 09/02/10 Status: Orderedmetformin 500 mg oral tablet 1 tablet = 500 mg, By Mouth, 2 times a day, 0 Refills, Maintenance Start Date: 09/02/10 Status: OrderedMultivitamin By Mouth, Daily, 0 Refills, Maintenance Start Date: 09/02/10 Status: Orderedmultivitamin with minerals Vitamin D with Minerals oral tablet, chewable 1 tablet, Daily, 0 Refills, Maintenance Start Date: 09/02/10 Status: Orderedpravastatin 20 mg oral tablet 1 tablet = 20 mg, By Mouth, Daily at bedtime, 0 Refills, Maintenance Start Date: 09/02/10 Status: Ordered
== END 2022-05-30 19:57 | disposition home or self-care (01) ==
PROVIDERS: Emergency Provider Emergency Medicine; PCP Family Medicine
DX: S42.261A Displaced fracture of lesser tuberosity of right humerus, initial encounter for closed fracture (principal); W01.10XA Fall on same level from slipping, tripping and stumbling with subsequent striking against unspecified object, initial encounter; M25.561 Pain in right knee; E11.9 Type 2 diabetes mellitus without complications; Z79.82 Long term (current) use of aspirin; Z79.899 Other long term (current) drug therapy; Z79.02 Long term (current) use of antithrombotics/antiplatelets; Y93.89 Activity, other specified; Y92.039 Unspecified place in apartment as the place of occurrence of the external cause; Y99.9 Unspecified external cause status
CPT/HCPCS: 70450; 72125; 73030; 73080; 73110; 73130; 73564; 99282; 99284

== ENCOUNTER 2022-06-04 13:34 | Outpatient (REF) | payer MEDICARE, MEDICAID, SELFPAY ==
--- NOTE | ~2022-06-04 | XR_ITS ---
EXAMINATION: XR wrist RT w scaphoid CLINICAL INFORMATION: Reason for Exam M79.641 - Pain in right hand COMPARISON: None. TECHNIQUE: Four views of the right wrist XR/XR wrist RT w scaphoid FINDINGS/IMPRESSION: * No acute fracture or dislocation. No evidence of scaphoid injury, however there is clinical concern, follow-up films in 7-10 days may be obtained. * Joint spaces are maintained without significant degenerative change. * No soft tissue abnormality.
== END 2022-06-04 13:35 | disposition home or self-care (01) ==
LOC: HO.HOSX 13:34
PROVIDERS: Visit Provider Physician Assistant
DX: S62.001A Unspecified fracture of navicular [scaphoid] bone of right wrist, initial encounter for closed fracture (principal); S42.201A Unspecified fracture of upper end of right humerus, initial encounter for closed fracture
CPT/HCPCS: 73110; 99202

== ENCOUNTER 2022-06-16 14:36 | Outpatient (REF) | payer MEDICARE, MEDICAID, SELFPAY ==
--- NOTE | ~2022-06-16 | CT_ITS ---
EXAMINATION: CT WRIST WITHOUT CONTRAST, RIGHT CLINICAL INFORMATION: Unspecified fracture of the scaphoid. COMPARISON: 06/04/2022. TECHNIQUE: Multidetector volumetric imaging was obtained through the right wrist without contrast. Multiplanar reformatted images in coronal and sagittal orientations were submitted. This CT examination was performed using dose optimization techniques as appropriate, variously including the following: *Automated exposure control *Adjustment of mA and/or kV according to patient size (this includes techniques or standardized protocols for targeted exams where dose is matched to indication/reason for exam; i.e. extremities or head) *Use of iterative reconstruction technique DLP: 94 mGy-cm FINDINGS: No acute fracture or malalignment at the wrist. Distal radius and scaphoid are intact. The hamate is intact. Joints appear relatively well-preserved. There is mild osteoarthritis of the first CMC joint. No erosions or periostitis. No soft tissue calcifications are identified. Appear grossly intact without appreciable tears or tenosynovitis CT. No fluid collections are identified. CT/CT wrist RT wo IV con IMPRESSION: No acute osseous abnormalities at the wrist. No fracture or malalignment. Mild first CMC osteoarthritis
== END 2022-06-16 14:37 | disposition home or self-care (01) ==
LOC: HO.CT 14:36
PROVIDERS: PCP Family Medicine; Visit Provider Physician Assistant
DX: S62.001A Unspecified fracture of navicular [scaphoid] bone of right wrist, initial encounter for closed fracture (principal)
CPT/HCPCS: 73200

== ENCOUNTER → 2022-06-17 14:02 | Outpatient (BNVA) | payer MEDICARE, MEDICAID, SELFPAY | PROVIDERS: PCP Family Medicine; Visit Provider Orthopaedic Surgery | DX: S62.001D Unspecified fracture of navicular [scaphoid] bone of right wrist, subsequent encounter for fracture with routine healing (principal) | CPT/HCPCS: 99212 ==

== ENCOUNTER → 2022-07-21 14:04 | Outpatient (REF) | payer MEDICARE, MEDICAID, SELFPAY ==
--- NOTE | 2022-07-21 14:07 | CA_ITS ---
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 Study Quality: Adequate ECG Rhythm: Sinus with extra beats Conclusions: - 1. Low normal LV systolic function with mild LVH with LVEF of 50-55% with impaired relaxation filling pattern 2. Mild mitral regurgitation 3. Normal RV systolic pressure 4. No pericardial effusion Findings Left Ventricle Normal left ventricular cavity size. There is mildly increased left ventricular wall thickness. The left ventricular systolic function is low normal. The visually estimated ejection fraction is between 50-55%. Spectral Doppler is indicative of an impaired relaxation filling pattern. E/E prime ratio is between 8 and 15 consistent with indeterminate filling pressures. Wall Motion Rest Echo Findings The basal inferior segment is akinetic. All other scored wall segments showed normal motion. Right Ventricle Normal right ventricular cavity size and systolic function. Atria The left atrium is normal in size. Interatrial shunt cannot be excluded. The right atrium is normal in size. Aortic Valve The aortic valve was not well visualized. There is no aortic valve stenosis. There is no aortic valve regurgitation. Mitral Valve There is mild anterior and posterior mitral leaflet thickening. There is mild mitral valve regurgitation. There is no mitral valve stenosis. Tricuspid Valve Likely normal tricuspid valve structure and function. There is trace tricuspid valve regurgitation. The right ventricular systolic pressure is normal. The right ventricular systolic pressure is 25 mmHg. Normal right atrial pressure. There is no evidence of pulmonary hypertension. Great Vessels All visible segments of the aorta are normal in size. The pulmonary artery was not well visualized. Venous The inferior vena cava is normal in size and collapses greater than 50% with inspiration. Pericardium/Pleural There is no evidence of pericardial effusion. Prior Study Comparison No significant change compared to prior study dated: 09/19/2021. Measurements 2D Linear Measurements IVSd: 1.22 0.6-0.9/0.6-1.0 cm LVIDd: 3.79 3.9-5.3/4.2-5.9 cm LVIDd Index: 1.98 2.4-3.2/2.2-3.1 cm/m2 LVIDs: 2.74 2.0-3.6 cm LVPWd: 1.15 0.7-1.1 cm LA Diam: 3.30 2.7-3.8/3.0-4.0 cm LAIDs Index: 1.73 1.5-2.3 cm/m2 LV Mass: 186.48 67-162/88-224 g LV Mass Index: 97.63 43-95/49-115 g/m2 LVOT Diam: 2.20 3.0+(-)1.3 cm 2D Systolic Function EF 4C: 53.80 >55% EF 2C: 53.10 >55% EF BiP: 52.70 >55% Mitral Valve MV Pk E: 0.97 E'Lateral: 8.38 E'Medial: 5.55 E/E' Med: 17.40 E/E' Lat: 11.50 Aortic Valve AoV Pk Malvin: 1.66 AoV Mn Malvin: 1.13 AoV VTI: 0.33 AoV Pk Grad: 11.00 Aov Mn Grad: 6.00 EMMA Cont.VTI: 2.28 LVOT LVOT Pk Malvin: 0.92 LVOT Mn Malvin: 0.63 LVOT VTI: 0.20 LVOT Pk Grad: 3.00 LVOT Mn Grad: 2.00 LVOT Diam: 2.20 LVOT Area: 3.80 Diastolic Function MV Pk E: 0.97 E'Medial: 5.55 E/E' Med: 17.40 E' Laterial: 8.38 E/E' Lat: 11.50 Right Ventricle TAPSE (mm): 24.40 TVS' Malvin: 10.30 Tricuspid Valve TR Pk Malvin: 2.04 TR Pk Grad: 17.00 RA Press: 8.00 RVSP: 25.00 Great Vessels Aorta Sinus of Valsalva: 3.20 2.0-3.5 cm Ao Asc: 2.90 2.1-3.4 cm Pulmonary Valve PV Pk Malvin: 0.83 Peak PV Grad: 3.00 Updated in Other Vendor System with Status of Final Mani Moon MD electronically signed on 07/22/2022 3:46:41 PM with status of Final
== END ==
LOC: HO.CARD 14:04
PROVIDERS: PCP Family Medicine; Visit Provider Internal Medicine
DX: I25.10 Atherosclerotic heart disease of native coronary artery without angina pectoris (principal)
CPT/HCPCS: 93306

== ENCOUNTER 2022-07-29 11:10 | Outpatient (REF) | payer MEDICARE, MEDICAID, SELFPAY ==
--- NOTE | ~2022-07-29 | XR_ITS ---
EXAMINATION: XR WRIST, RIGHT CLINICAL INFORMATION: Right wrist pain. COMPARISON: CT dated 06/16/2022 TECHNIQUE: PA, lateral, oblique, and scaphoid views of the right wrist. FINDINGS: Bones are osteopenic. No fracture or malalignment. There is mild osteoarthritis at the radiocarpal and 1st CMC joint characterized by marginal osteophytes primarily. Joint spaces appear relatively well-preserved. No erosions or periostitis. No soft tissue mineralization. XR/XR wrist RT w scaphoid IMPRESSION: Mild osteoarthritis in the radiocarpal and 1st CMC joints. No acute osseous findings.
== END 2022-07-29 11:11 | disposition home or self-care (01) ==
LOC: HO.HOSX 11:10
PROVIDERS: Visit Provider Orthopaedic Surgery
DX: S62.001D Unspecified fracture of navicular [scaphoid] bone of right wrist, subsequent encounter for fracture with routine healing (principal)
CPT/HCPCS: 73110; 99212

== ENCOUNTER → 2022-08-05 14:35 | Outpatient (BNVA) | payer MEDICARE, MEDICAID, SELFPAY | PROVIDERS: PCP Family Medicine; Referring Provider Family Medicine; Visit Provider Internal Medicine | DX: I25.10 Atherosclerotic heart disease of native coronary artery without angina pectoris (principal); I49.3 Ventricular premature depolarization; G47.33 Obstructive sleep apnea (adult) (pediatric) | CPT/HCPCS: 93005; 99212 ==

== ENCOUNTER → 2022-08-13 14:00 | Outpatient (REF) | payer MEDICARE, MEDICAID, SELFPAY | LOC: HO.SL 14:00 | PROVIDERS: PCP Family Medicine; Visit Provider Internal Medicine | DX: G47.33 Obstructive sleep apnea (adult) (pediatric) (principal) | CPT/HCPCS: 95806 ==

== ENCOUNTER → 2022-08-18 13:10 | Outpatient (BNVA) | payer MEDICARE, MEDICAID, SELFPAY | PROVIDERS: PCP Family Medicine; Referring Provider Family Medicine; Visit Provider Surgery | DX: K64.8 Other hemorrhoids (principal); K64.4 Residual hemorrhoidal skin tags; Z80.41 Family history of malignant neoplasm of ovary | CPT/HCPCS: 46600; 99212 ==

== ENCOUNTER → 2022-09-10 13:17 | Outpatient (BNVA) | payer MEDICARE, MEDICAID, SELFPAY | PROVIDERS: PCP Family Medicine; Visit Provider Internal Medicine | DX: G47.33 Obstructive sleep apnea (adult) (pediatric) (principal); E66.9 Obesity, unspecified; Z68.36 Body mass index [BMI] 36.0-36.9, adult | CPT/HCPCS: 99202 ==

== ENCOUNTER 2022-09-18 14:36 | Outpatient (REF) | payer SELFPAY | END 2022-09-18 14:37 | disposition home or self-care (01) | LOC: HO.HAP 14:36 | PROVIDERS: Visit Provider Family Medicine | DX: Z46.1 Encounter for fitting and adjustment of hearing aid (principal); H90.3 Sensorineural hearing loss, bilateral | CPT/HCPCS: V5267 ==

== ENCOUNTER 2022-10-02 14:41 | Outpatient (REF) | payer MEDICARE, MEDICAID, SELFPAY ==
[2022-10-09 12:59] LABS: HPV mRNA E6/E7 rflx Not Detected (Not Detected)
== END 2022-10-02 14:42 | disposition home or self-care (01) ==
LOC: HO.LNP 14:41
PROVIDERS: PCP Family Medicine; Visit Provider Advanced Practice Midwife
DX: Z01.419 Encounter for gynecological examination (general) (routine) without abnormal findings (principal); Z11.51 Encounter for screening for human papillomavirus (HPV)
CPT/HCPCS: 87624; 88142; G0101

== ENCOUNTER 2022-10-20 13:58 | Outpatient (AMB) | payer MEDICARE, MEDICAID, SELFPAY ==
[2022-10-20 13:59] VITALS: BP 117/73; PULSE 77; BMI 36.0
--- NOTE | 2022-10-20 13:59 | MHC.OFFVIS ---
Intake Vital Signs 10/20/22 13:59 Height 5 ft 2 in Weight 197 lb BMI 36.0 BP 117/73 Blood Pressure Location Rt brachial Position Sitting Pulse 77 Intake Visit Reasons: hemorrhoids Intake Note: This patient presents for a follow-up assessment for hemorrhoids. 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 Accompanied by: Daughter Allergies peanut Allergy (Severe, Verified 10/20/22 14:09) angioedema lisinopril [LISINOPRIL] Allergy (Intermediate, Verified 10/20/22 14:09) RASH, cough zoster vaccine live [SHINGLES VACCINE] Allergy (Intermediate, Verified 10/20/22 14:09) LOCALIZED REDNESS, SWELLING, FEVER,COUGH latex [LATEX] Allergy (Unknown, Verified 10/20/22 14:09) RASH pineapple [PINEAPPLE] Allergy (Unknown, Verified 10/20/22 14:09) RASH strawberry [STRAWBERRY] Allergy (Unknown, Verified 10/20/22 14:09) RASH adhesive Allergy (Verified 10/20/22 14:09) Blister Medication List - Last Reconciled 10/20/22 by Karthik De Anda MD albuterol sulfate 90 mcg/actuation (ProAir HFA) 2 puffs PO Q4H aspirin 81 mg PO DAILY atorvastatin 80 mg PO BEDTIME clopidogrel 75 mg PO DAILY hydrocortisone 1% FL lidocaine 5% 1 appl topical PRN loratadine 10 mg PO BEDTIME metoprolol succinate ER 100 mg (2 x 50 mg) PO QAM montelukast 10 mg PO BEDTIME nitroglycerin (Nitrostat) 0.4 mg sublingual Q5MX3 PRN omeprazole 20 mg PO DAILY@0630 pregabalin (Lyrica) 50 mg PO BID HPI hemorrhoids HPI Details [age] year old female here for follow-up for her hemorrhoids. I have been following her since 2020 for her hemorrhoids. She has note of external and internal hemorrhoids. She feels that her symptoms have been worsening. She describes discomfort and pain with her hemorrhoids and these get swollen and inflamed periodically She occasionally sees blood on wiping . She used to have a issue with constipation but she says this seems to be well control with laxatives. She has a history of MO last year and is following a pre press proofer for this. [facility] Medical History Cataract Family history of ovarian cancer Hemorrhoids with complication Hemorrhoids with complication NSVT (nonsustained ventricular tachycardia) Obesity (BMI 30-39.9) GUADALUPE (obstructive sleep apnea) GUADALUPE (obstructive sleep apnea) PVC (premature ventricular contraction) Surgical History History of coronary artery stent placement History of esophagogastroduodenoscopy (EGD) History of lumbar laminectomy History of shoulder surgery (~04/29/18) Hx of colonoscopy Family History Father Cardiovascular disease Mother Osteoarthritis Family/Other Ovarian cancer, Onset Age: 30 Social History Household Members: Spouse Alcohol intake: never Patient Tobacco Use Status: Never used Tobacco service: No Current occupational status: unemployed Current occupation: rt handed Review of Systems Const Denies chills and Denies fever(s) Card Denies chest pain, Denies dyspnea and Denies dyspnea on exertion Resp Denies cough, Denies dyspnea and Denies dyspnea on exertion GI Denies hematochezia and Denies change in bowel habits Denies hematuria Musc Denies back pain and Denies limited range of motion Neuro Denies focal weakness and Denies convulsions Psych Denies depression and Denies mood swings Physical Exam Vital Signs: Last Vital Signs Pulse 77 10/20/22 13:59 BP 117/73 10/20/22 13:59 BMI result Body Mass Index 36.0 Const General: comfortable and no acute distress Orientation/consciousness: patient oriented x3 Neck Neck: Yes no lymphadenopathy Resp Auscultation: clear to auscultation bilaterally Cardio Rhythm: regular rhythm GI Other: Rectal exam shows External hemorrhoids, left and right, anoscopy as described Palpation (GI): Soft to palpation, nontender and no guarding Neuro General: patient oriented x3 Office Procedures Anoscopy She was in bhavna-knife position. The anoscope was gently inserted. A full examination of the anal canal was done. She did have moderate-sized internal external margins, left and right side, right more than the left, there was no fissure, there were no other lesions, there was no induration on digital exam. She had good sphincter tone, there was no bleeding [id number] Assessment & Plan Assessment & Plan (1) Hemorrhoids with complication: Code(s): K64.8 - Other hemorrhoids Plan: She describes worsening problems with pain, and swelling with her hemorrhoids and wants to proceed with hemorrhoidectomy. I reviewed with her the technique of exam under anesthesia and hemorrhoidectomy. I explained the risks including but not limited to bleeding, infections, postop pain, sphincter injury, poor healing, as well as the benefits and alternatives. She wants to proceed She is going to see her pre press proofer preoperatively as she has a history of MO last year. Coding Level of Care Code Est Pt Level 3 (95603) Diagnoses Hemorrhoids with complication K64.8 CPT Codes Details - CPT: 45230-[id number] ([id number])
== END 2022-10-20 14:26 | disposition home or self-care (01) ==
PROVIDERS: PCP Family Medicine; Visit Provider Surgery
DX: K64.8 Other hemorrhoids (principal)
CPT/HCPCS: 46600; 99213

== ENCOUNTER → 2022-10-20 13:58 | Outpatient (BNVA) | payer MEDICARE, MEDICAID, SELFPAY | PROVIDERS: PCP Family Medicine; Visit Provider Surgery | DX: K64.8 Other hemorrhoids (principal) | CPT/HCPCS: 46600; 99212 ==

== ENCOUNTER 2022-11-03 14:42 | Outpatient (AMB) | payer MEDICARE, MEDICAID, SELFPAY ==
[2022-11-03 14:44] VITALS: BP 112/74; PULSE 93; O2SAT 97; BMI 34.9
--- NOTE | 2022-11-03 14:44 | A.OFFVIS_ITS ---
Intake Vital Signs 11/03/22 14:44 Height 5 ft 3 in Weight 197 lb 5.019 oz BMI 34.9 BP 112/74 Blood Pressure Location Lt brachial Position Sitting Pulse 93 Pulse Source Pulse Oximeter Pulse Oximetry (%) 97 Oxygen Delivery Method Room Air Intake Visit Reasons: Obstructive sleep apnea Intake Note: Pt presents with her daughter for a f/u regarding her CPAP machine. Pt reports the machine is doing alright but has some difficultly with the mask. Allergies peanut Allergy (Severe, Verified 11/03/22 15:04) angioedema lisinopril [LISINOPRIL] Allergy (Intermediate, Verified 11/03/22 15:04) RASH, cough zoster vaccine live [SHINGLES VACCINE] Allergy (Intermediate, Verified 11/03/22 15:04) LOCALIZED REDNESS, SWELLING, FEVER,COUGH latex [LATEX] Allergy (Unknown, Verified 11/03/22 15:04) RASH pineapple [PINEAPPLE] Allergy (Unknown, Verified 11/03/22 15:04) RASH strawberry [STRAWBERRY] Allergy (Unknown, Verified 11/03/22 15:04) RASH adhesive Allergy (Verified 11/03/22 15:04) Blister Medication List - Last Reconciled 11/03/22 by Gilda Webber MD albuterol sulfate 90 mcg/actuation (ProAir HFA) 2 puffs PO Q4H aspirin 81 mg PO DAILY atorvastatin 80 mg PO BEDTIME clopidogrel 75 mg PO DAILY fluticasone propionate 50 mcg/actuation sprays intranasal hydrocortisone 1% CO lidocaine 5% 1 appl topical PRN loratadine 10 mg PO BEDTIME metoprolol succinate ER 100 mg (2 x 50 mg) PO QAM montelukast 10 mg PO BEDTIME nitroglycerin (Nitrostat) 0.4 mg sublingual Q5MX3 PRN omeprazole 20 mg PO DAILY@0630 pregabalin (Lyrica) 50 mg PO BID Do you need a note to return to daycare/school/sports/work: No HPI Obstructive sleep apnea HPI Details 67 YEARS OLD VERY PLEASANT FEMALE COMES ALONG WITH HER DAUGHTER. SHE HAS BEEN USING THE CPAP EVERY NIGHT SINCE SHE GOT ABOUT 5 WEEKS AGO. SHE KEEPS IT ON AT LEAST FOR 4 HOUR THEN SHE WAKES UP TO GO TO THE BATHROOM, AND SOMETIMES DOES NOT PUT IT BACK ON. COMPLAINS OF SOME AIR LEAK THE MASK SLIPS OFF DURING THE NIGHT. OVERALL SHE IS SLEEPING MUCH BETTER AND IS BENEFITING FROM THE USE OF CPAP. [facility] Medical History Cataract Family history of ovarian cancer Hemorrhoids with complication Hemorrhoids with complication NSVT (nonsustained ventricular tachycardia) Obesity (BMI 30-39.9) GUADALUPE (obstructive sleep apnea) GUADALUPE (obstructive sleep apnea) PVC (premature ventricular contraction) Surgical History History of coronary artery stent placement History of esophagogastroduodenoscopy (EGD) History of lumbar laminectomy History of shoulder surgery (~04/29/18) Hx of colonoscopy Family History Father Cardiovascular disease Mother Osteoarthritis Family/Other Ovarian cancer, Onset Age: 30 Social History Household Members: Spouse Alcohol intake: never Patient Tobacco Use Status: Never used Tobacco service: No Current occupational status: unemployed Current occupation: rt handed Review of Systems Const All systems reviewed & are unremarkable except as noted in HPI and below Eyes Reports no additional complaints ENT Reports nasal congestion (Mild to moderate off and on) Card Denies chest pain, Denies irregular heart rhythm and Denies leg edema Resp Reports cough (Mild off and on) and Denies wheezing GI Reports no additional complaints Reports no additional complaints Musc Reports no additional complaints Skin/Breast Reports system reviewed and no additional complaints, except as documented Neuro Reports no additional complaints Psych Reports no additional complaints Endo Reports no additional complaints Aller/Immun Denies wheezing Physical Exam Vital Signs: Last Vital Signs Pulse 93 11/03/22 14:44 BP 112/74 11/03/22 14:44 Pulse Ox 97 11/03/22 14:44 Oxygen Delivery Method Room Air 11/03/22 14:44 BMI result Body Mass Index 34.9 Const General: comfortable, no acute distress, alert and awake Orientation/consciousness: patient oriented x3 HEENT Head: Yes normal to inspection General nose exam: No nasal polyps present and No nasal discharge present Face and sinus: Yes sinuses nontender Mouth: oropharynx abnormals (Somewhat crowded and narrow, Mallampati class 3) Throat: Yes posterior oropharynx normal Eyes General: appearance normal, both eyes and all related structures Neck Neck: Yes normal visual inspection, Yes no lymphadenopathy, Yes trachea midline, Yes no JVD and Yes other (Neck circumference 15 in) Thyroid: Thyroid normal Chest Chest palpation & inspection: normal inspection of the chest, normal palpation of entire chest wall and no tenderness Resp Effort & Inspection: normal respiratory effort Auscultation: clear to auscultation bilaterally, no crackles and no wheezes Cardio Palpation: normal PMI Rate: regular rate Rhythm: regular rhythm Heart sounds: no gallops and no murmurs GI Palpation (GI): Soft to palpation, nontender, No hepatosplenomegaly present and no masses Auscultation: normal bowel sounds Back/Spine/Pelvis Thoracic/Lumbar Spine: thoracic and lumbar spine normal to inspection Skin General skin exam: no rashes or lesions noted Neuro General: patient oriented x3 and no focal motor deficits Cranial nerves: Yes CN's II-XII intact bilaterally Extrem General: Yes normal to inspection, Yes no clubbing, cyanosis or edema and Yes no calf tenderness Psych Appearance: grossly normal and well kempt Speech and movement: Normal speech and movement present Results Reviewed Results Reviewed: COMPLIANCE REPORT IS REVIEWED AND SHE HAS USED 30/30 NIGHTS, 100%. AVERAGE HIS USAGE FOR MOST OF THE NIGHTS HAS BEEN 4 HOURS 35 MINUTES. ONLY FOR 6 NIGHTS SHE USED IT LESS THAN 4 HOURS. NINETY-FIFTH PERCENTILE PRESSURE 10.3 CM. NO SIGNIFICANT AIR. LEAK IS REPORTED RESIDUAL AHI 1.0 Assessment & Plan Assessment & Plan (1) Obesity (BMI 30-39.9): Comment: THIS PATIENT IS MODERATELY OBESE WITH A ROUND FACE, AGAIN DISCUSSED AND ENCOURAGED TO LOSE WEIGHT AT LEAST BY 10-15 LBs Code(s): E66.9 - Obesity, unspecified (2) GUADALUPE (obstructive sleep apnea): Comment: CONFIRMED CASE OF OBSTRUCTIVE SLEEP APNEA, HAS BEEN STARTED ON CPAP THERAPY AND SHE IS 100% COMPLIANT. NEEDS TO INCREASE THE DURATION OF USAGE EVERY NIGHT TO 5 OR 6 HOURS. EXPLAINED THE IMPORTANCE OF USING THE CPAP . SHE UNDERSTANDS WELL AND IS GOING TO TRY TO USE FOR AT LEAST 6 HOURS PER NIGHT. Code(s): G47.33 - Obstructive sleep apnea (adult) (pediatric) Coding Level of Care Code Est Pt Level 3 (90993) Diagnoses Obesity (BMI 30-39.9) E66.9 GUADALUPE (obstructive sleep apnea) G47.33
== END 2022-11-03 15:03 | disposition home or self-care (01) ==
PROVIDERS: PCP Family Medicine; Visit Provider Internal Medicine
DX: E66.9 Obesity, unspecified (principal); G47.33 Obstructive sleep apnea (adult) (pediatric)
CPT/HCPCS: 99213

== ENCOUNTER → 2022-11-03 14:42 | Outpatient (BNVA) | payer MEDICARE, MEDICAID, SELFPAY | PROVIDERS: PCP Family Medicine; Visit Provider Internal Medicine | DX: G47.33 Obstructive sleep apnea (adult) (pediatric) (principal); E66.9 Obesity, unspecified; Z68.34 Body mass index [BMI] 34.0-34.9, adult | CPT/HCPCS: 99212 ==

== ENCOUNTER 2022-11-05 08:41 | Outpatient (REF) | payer MEDICARE, OTHER, SELFPAY ==
[2022-11-05 11:43] LABS: Estimated Average Glucose 143 mg/dL; Hemoglobin A1c % 6.6 %
[2022-11-05 12:03] LABS: Alanine Aminotransferase 22 U/L (0-31); Albumin Level 3.8 g/dL (3.5-5.0); Alkaline Phosphatase 96 U/L (39-117); Anion Gap 10 (12-20); Aspartate Amino Transferase 17 U/L (5-31); Bilirubin Total 0.3 mg/dL (0.0-1.0); Blood Urea Nitrogen 17 mg/dL (9-16); Carbon Dioxide 25 mmol/L (22-29); Chloride 110 mmol/L (96-108); Cholesterol 118 mg/dL; Estimated Glomerular Filt Rate > 60; Glucose Random 139 mg/dL (60-115); HDL Cholesterol 47 mg/dL; LDL Cholesterol Calculated 56 mg/dl; Sodium 141 mmol/L (135-145); Total Protein 6.5 g/dL (6.5-8.0); Triglycerides 76 mg/dL
[2022-11-05 12:05] LABS: Creatinine Urine 282.51 mg/dL; Microalbum/Creatinine Ratio Ur 4.9 ug/mg cr
[2022-11-05 12:22] LABS: TSH reflex Free T4 2.24 uIU/mL (0.32-4.0)
[2022-11-05 12:30] LABS: Folate 9.2 ng/mL (> or = 4.0); Vitamin B12 779 pg/mL (200-900)
== END 2022-11-05 08:42 | disposition home or self-care (01) ==
LOC: HO.HHCL 08:41
PROVIDERS: Visit Provider Family Medicine
DX: E11.9 Type 2 diabetes mellitus without complications (principal)
CPT/HCPCS: 36415; 80053; 80061; 82043; 82607; 82746; 83036; 84443

== ENCOUNTER 2022-11-19 13:04 | Outpatient (AMB) | payer MEDICARE, MEDICAID, SELFPAY ==
[2022-11-19 14:33] VITALS: BP 114/68; PULSE 58; BMI 36.3
--- NOTE | 2022-11-19 14:33 | MHC.OFFVIS ---
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: No Accompanied by: Daughter Allergies peanut Allergy (Severe, Verified 11/19/22 14:41) angioedema lisinopril [LISINOPRIL] Allergy (Intermediate, Verified 11/19/22 14:41) RASH, cough zoster vaccine live [SHINGLES VACCINE] Allergy (Intermediate, Verified 11/19/22 14:41) LOCALIZED REDNESS, SWELLING, FEVER,COUGH latex [LATEX] Allergy (Unknown, Verified 11/19/22 14:41) RASH pineapple [PINEAPPLE] Allergy (Unknown, Verified 11/19/22 14:41) RASH strawberry [STRAWBERRY] Allergy (Unknown, Verified 11/19/22 14:41) RASH adhesive Allergy (Verified 11/19/22 14:41) Blister Medication List - Last Reconciled 11/19/22 by Bishnu Cesar MD albuterol sulfate 90 mcg/actuation (ProAir HFA) 2 puffs PO Q4H aspirin 81 mg PO DAILY atorvastatin 80 mg PO BEDTIME clopidogrel 75 mg PO DAILY fluticasone propionate 50 mcg/actuation sprays intranasal hydrocortisone 1% MA lidocaine 5% 1 appl topical PRN loratadine 10 mg PO BEDTIME metoprolol succinate ER 100 mg (2 x 50 mg) PO QAM montelukast 10 mg PO BEDTIME nitroglycerin 0.4 mg sublingual Q5M PRN pantoprazole 40 mg PO QAM pregabalin (Lyrica) 50 mg PO BID simethicone 180 mg PO QID 30 days tiotropium bromide 1.25 mcg/actuation (Spiriva Respimat) 2 puffs inhalation DAILY HPI HPI Comments History of Present Illness Details Araseli returns for follow-up regarding coronary disease as well as PVCs. To recall, in the past she was being seen for PVCs and she was on flecainide. However, last year she was rather admitted with NSTEMI. Subsequently, underwent cardiac catheterization and stenting of right coronary artery. She also had LAD as well as circumflex disease, medically treated. She states that these days she is getting frequent episodes of chest pain. Almost all of them exertional. Whenever she is walking up a hill or going up a flight of stairs she gets chest discomfort and has stop. Sometimes also left arm discomfort. Some palpitations related to PVCs. [facility] Medical History (Updated 11/19/22 @ 14:48 by DYLAN Torres) Cataract Family history of ovarian cancer Hemorrhoids with complication Hemorrhoids with complication NSVT (nonsustained ventricular tachycardia) Obesity (BMI 30-39.9) GUADALUPE (obstructive sleep apnea) GUADALUPE (obstructive sleep apnea) PVC (premature ventricular contraction) Surgical History (Updated 11/19/22 @ 14:48 by DYLAN Torres) History of coronary artery stent placement History of esophagogastroduodenoscopy (EGD) History of lumbar laminectomy History of shoulder surgery (~04/29/18) Hx of colonoscopy Family History Father Cardiovascular disease Mother Osteoarthritis Family/Other Ovarian cancer, Onset Age: 30 Social History Household Members: Spouse Alcohol intake: never Patient Tobacco Use Status: Never used Tobacco service: No Current occupational status: unemployed Current occupation: rt handed Review of Systems Const Denies weakness ENT Denies dizziness Card Reports chest pain, Denies chest pain with activity, Denies syncope, Denies rapid heart rate, Denies pedal edema, Denies edema, Denies leg edema, Denies lightheadedness, Denies palpitations, Denies dyspnea, Denies dyspnea on exertion and Denies orthopnea Resp Denies cough, Denies dyspnea and Denies dyspnea on exertion GI Denies hematochezia and Denies change in stool character Musc Denies abnormal gait, Denies muscle cramps, Denies muscle weakness, Denies numbness, Denies radiating pain into limb and Denies tingling Skin/Breast Reports system reviewed and no additional complaints, except as documented and Reports as per HPI Neuro Denies abnormal gait, Denies dizziness, Denies syncope, Denies numbness, Denies tingling and Denies weakness Psych Reports no additional complaints and Reports as per HPI Endo Denies palpitations Physical Exam Vital Signs: Last Vital Signs Pulse 58 11/19/22 14:33 BP 114/68 11/19/22 14:33 BMI result Body Mass Index 36.3 Const General: comfortable and no acute distress Orientation/consciousness: patient oriented x3 HEENT Other: Unremarkable Head: Yes normal to inspection Neck Neck: Yes normal visual inspection Chest Chest palpation & inspection: normal inspection of the chest Resp Auscultation: clear to auscultation bilaterally Cardio Palpation: normal PMI Heart sounds: S1 normal heart sound present, S2 normal heart sound present, no gallops, no murmurs and no rubs GI Palpation (GI): Soft to palpation Back/Spine/Pelvis Other: unremarkable Skin General skin exam: no rashes or lesions noted Neuro General: patient oriented x3 Extrem General: Yes normal to inspection Psych Mental Status: mental status grossly normal Assessment & Plan Assessment & Plan (1) Atherosclerotic cardiovascular disease: Code(s): I25.10 - Atherosclerotic heart disease of [place] coronary artery without angina pectoris Plan: Cardiac catheterization data reviewed from 09/2021. Occluded RCA, thought to be culprit for NSTEMI. Status post MOOK. She also had LAD as well as circumflex stenosis. As she is getting frequent episodes of exertional type angina, we can proceed with repeat cardiac catheterization and potentially stenting of the LAD. May remain on aspirin/Plavix. Continue beta-blockers and high-dose statins. LDL is well controlled. Start Imdur. NTG prn. To avoid all forms of strenuous exertion. (2) PVC (premature ventricular contraction): Code(s): I49.3 - Ventricular premature depolarization Plan: Continue beta-blockers. In the past, she was on flecainide but after the diagnosis of CAD, it was stopped. Now that she is using CPAP, should help. (3) GUADALUPE (obstructive sleep apnea): Code(s): G47.33 - Obstructive sleep apnea (adult) (pediatric) Plan: Sleep study with moderately severe obstructive sleep apnea. Continue CPAP. Plan Discussed with daughter who came for the appointment. Orders: Orders Cardiac Cath LT w PCI Today I25.10 - Atherosclerotic heart disease of [place] coronary artery without angina pectoris Basic Metabolic Panel Today I25.10 - Atherosclerotic heart disease of [place] coronary artery without angina pectoris Complete Blood Count no Diff Today I25.10 - Atherosclerotic heart disease of [place] coronary artery without angina pectoris Prothrombin Time INR Today I25.10 - Atherosclerotic heart disease of [place] coronary artery without angina pectoris Medications: New nitroglycerin do not exceed 3 doses per episode 0.4 mg sublingual Q5M PRN 30 tabs 5RF chest pain R07.2 - Precordial pain isosorbide mononitrate ER 30 mg PO DAILY 90 tabs 3RF isosorbide mononitrate ER 30 mg PO DAILY 90 tabs 3RF nitroglycerin do not exceed 3 doses per episode 0.4 mg sublingual Q5M PRN 30 tabs 5RF chest pain R07.2 - Precordial pain Coding Level of Care Code Est Pt Level 4 (09837) Diagnoses Atherosclerotic cardiovascular disease I25.10 PVC (premature ventricular contraction) I49.3 GUADALUPE (obstructive sleep apnea) G47.33
== END 2022-11-19 15:22 | disposition home or self-care (01) ==
PROVIDERS: PCP Family Medicine; Referring Provider Family Medicine; Visit Provider Internal Medicine
DX: I25.10 Atherosclerotic heart disease of native coronary artery without angina pectoris (principal); I49.3 Ventricular premature depolarization; G47.33 Obstructive sleep apnea (adult) (pediatric)
CPT/HCPCS: 99214

== ENCOUNTER 2022-11-19 13:04 | Outpatient (AMB) | payer MEDICARE, MEDICAID, SELFPAY ==
--- NOTE | 2022-11-19 13:07 | A.OFFVIS_ITS ---
Intake Vital Signs 11/19/22 13:09 Height 5 ft 2 in Weight 198 lb 6.656 oz BMI 36.3 BP 143/89 H Blood Pressure Location Rt brachial Position Sitting Pulse 96 Intake Visit Reasons: Follow up GERD Intake Note: Patient presents to in office visit today in follow up of GERD. CC: Patient c/o upset stomach and heartburn, GERD, nausea, and bloating some days. Denies other GI symptoms today. Pattern Vault Clerk Required: Yes Pattern Vault Clerk Name: daughter Accompanied by: Self / Same As Patient Allergies peanut Allergy (Severe, Verified 11/19/22 14:41) angioedema lisinopril [LISINOPRIL] Allergy (Intermediate, Verified 11/19/22 14:41) RASH, cough zoster vaccine live [SHINGLES VACCINE] Allergy (Intermediate, Verified 11/19/22 14:41) LOCALIZED REDNESS, SWELLING, FEVER,COUGH latex [LATEX] Allergy (Unknown, Verified 11/19/22 14:41) RASH pineapple [PINEAPPLE] Allergy (Unknown, Verified 11/19/22 14:41) RASH strawberry [STRAWBERRY] Allergy (Unknown, Verified 11/19/22 14:41) RASH adhesive Allergy (Verified 11/19/22 14:41) Blister HPI Follow up GERD HPI Details Assessment & Plan (1) Abdominal bloating: ?Code(s): R14.0 - Abdominal distension (gaseous) (2) Hemorrhoids: ?Comment: GRADE 3 ?Code(s): K64.9 - Unspecified hemorrhoids (3) Chronic idiopathic constipation: ?Code(s): K59.04 - Chronic idiopathic constipation (4) Right upper quadrant abdominal pain: ?Comment: starts under breast, radiates to right LLQ (I review old records and she had a negative CT in 2019, 2014 normal xray of thoracic spine, 2017 colonoscopy with TA and 2017 and an EGD in 2018 with only mild gastritis. She does have extensive low back problems and an injury to C1 after a fall. She still has a GB.? Extensive lab work only shows an elevated CRP and an A1c of 6.7% as abnormals.? However thoracic and lumbar spine shows extensive spinal stenosis particularly of the thoracic spine so her right upper quadrant pain is most likely radiculopathy.)? 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 SHE UNDERSTANDS BETTER THAN SHE SPEAKS.? Her assists in translating. She has concerns about taking the Creon because she read the s/e. She did have some gas trapping a couple of days ago, but it was relieved with simethicone. It is fine to continues with this and she can decide if she wants to try the Creon or not. She has had no more problems with her hemorrhoids. I explained that all the test results really 2 point towards her back as being the origin of her right upper quadrant pain.? The elevated CRP along with completely normal labs and moderate spondylosis of the thoracic spine on x-ray-also the fact that the pain is not affect his by eating or moving her bowels-show that she likely has some sort of stress bile nerve root entrapment radiating around the rib cage.? I have suggested that she ask her primary care provider to refer her to a pain management or rheumatologic provider for further treatment. She also confirms that this pain is worsened by today's whether; which is now we and cold.? Again, this is more evidence that the pain is not mediated by anything in the GI system.? Is most likely musculoskeletal or radicular. I explained that her A1c is slightly higher than optimal in that we like to see diabetics more around the 6% cary and her current is 6.7 but she needs to work with her primary care provider and or her life assurance representative for this issue.? The elevated CRP most likely is related to spinal arthritis. She is agreeable to a 6 month follow-up and will call sooner if she has any worsening GI concerns.? (I review old records and she had a negative CT in 2019, 2014 normal xray of thoracic spine, 2017 colonoscopy with TA and 2017 and an EGD in 2018 with only mild gastritis. She does have extensive low back problems and an injury to C1 after a fall. She still has a GB.? Extensive lab work only shows an elevated CRP and an A1c of 6.7% as abnormals.? However thoracic and lumbar spine shows extensive spinal stenosis particularly of the thoracic spine so her right upper quadrant pain is most likely radiculopathy.)? (5) GERD (gastroesophageal reflux disease): ?Code(s): K21.9 - Gastro-esophageal reflux disease without esophagitis TODAYS VISIT This patient has been lost to follow-up since 07/2020 Yoruba # dtr translates per pt request. She says she is having trouble with bloating after eating, and she does not feel that she is constipated. However, she does not often pass gas except when she drinks marilin gloria or drinks milk. She finds that the bloating lasts many hours and this will cause her a poor appetite throughout the day and nausea. No vomiting. She seems to remember that she found relief in the past with simethicone, but she recently lost her [facility] and it may not be covered - so we discuss GoodRx. She can get it for $9 with this, or on sale generic OTC which is cheaper for her. I also recommend that she start a probiotic. We discuss various reasons for bloating including HP, SIBBO, CIC, etc. She had the same complaint in 2020 and US was negative for gallstones. She also had neg Celiac panel. Since she has early satiety (no wt loss) and nausea; and she is a diabetic (last A1C 6.6%). I will order GES. She is now on protonix 40mg qd as her cardiologi sts want it to protect the stomach. ROV5 weeks as she has upcoming hemorrhoid surgery 12/02. No abx or other tx until we see how she response to the addition of the simethicone. [facility] Medical History (Updated 11/19/22 @ 14:48 by DYLAN Torres) Cataract Family history of ovarian cancer Hemorrhoids with complication Hemorrhoids with complication NSVT (nonsustained ventricular tachycardia) Obesity (BMI 30-39.9) GUADALUPE (obstructive sleep apnea) GUADALUPE (obstructive sleep apnea) PVC (premature ventricular contraction) Surgical History (Updated 11/19/22 @ 14:48 by DYLAN Torres) History of coronary artery stent placement History of esophagogastroduodenoscopy (EGD) History of lumbar laminectomy History of shoulder surgery (~04/29/18) Hx of colonoscopy Family History Father Cardiovascular disease Mother Osteoarthritis Family/Other Ovarian cancer, Onset Age: 30 Social History Household Members: Spouse Alcohol intake: never Patient Tobacco Use Status: Never used Tobacco service: No Current occupational status: unemployed Current occupation: rt handed Review of Systems Const Denies fatigue, Denies fever(s), Denies night sweats, Reports poor appetite, Reports weight gain and Denies weight loss Eyes Details: glasses Reports requires corrective lenses ENT Reports Normal hearing present, Denies dental pain, Denies dysphagia, Denies hearing loss, Denies mouth pain, Denies odynophagia, Denies throat swelling, Denies tongue swelling and Reports other (Dentition adequate) Card Reports irregular heart rhythm Resp Reports no additional complaints GI Denies abdominal pain, Denies melena, Reports bloating, Denies hematochezia, Denies constipation, Denies GI cramping, Denies dysphagia, Denies excessive flatus, Reports early satiety, Denies heartburn, Denies diarrhea, Reports nausea, Denies odynophagia, Denies vomiting and Denies hematemesis Skin/Breast Denies pruritus, Denies lesions, Denies rash and Denies jaundice Neuro Reports Normal hearing present and Denies Abnormal speech present Endo Denies fatigue Aller/Immun Denies throat swelling and Denies tongue swelling Physical Exam Vital Signs: Last Vital Signs Pulse 96 11/19/22 13:09 BP 143/89 H 11/19/22 13:09 BMI result Body Mass Index 36.3 Const General: cooperative, no acute distress, well developed and well groomed Nutritional Appearance: well nourished and obese morbidly obese Orientation/consciousness: oriented to person, oriented to place and oriented to time Limitations: language barrier HEENT Head: Yes normocephalic and Yes atraumatic Eyes General: appearance normal, both eyes and all related structures Pupils: Equal, round and reactive pupils present Neck Neck: Yes normal visual inspection and Yes no lymphadenopathy Thyroid: Thyroid normal Resp Effort & Inspection: normal respiratory effort and able to speak in complete sentences Auscultation: clear to auscultation bilaterally Cardio Rate: regular rate Rhythm: abnormal rhythm (Appears to be in bigeminy for several beats and then a flurry of irregular ) irregularly irregular Heart sounds: Normal, physiologic split S2 sound present Peripheral pulses: radial pulses present and posterior tibial pulses present GI Other: Unable to visualize abdomen due to clothing/girdle Inspection: No distended, Yes Abdominal panniculus present and Yes obesity Palpation (GI): Soft to palpation, nontender, no guarding, not rigid and No hepatosplenomegaly present Percussion: Yes normal to percussion Auscultation: normal bowel sounds Rectal Exam - Female: deferred Skin General skin exam: no rashes or lesions noted, turgor normal, skin not dry, no jaundice, No spider nevi and no striae Rashes: no rashes Nails: normal Neuro General: oriented to person, oriented to place and oriented to time Cranial nerves: Yes Equal, round and reactive pupils present and Yes Normal hearing present Speech: No Abnormal speech present Extrem General: Yes normal to inspection, No clubbing, No cyanosis and No edema Psych Appearance: grossly normal and well kempt Mental Status: mental status grossly normal Speech and movement: Normal speech and movement present Affect: normal affect Attitude: cooperative Thought process: Normal thought process present and not confabulating Thought content: Normal thought content present Insight: Limited insight present (Psych) Judgement: Limited judgement present (Psych) Assessment & Plan Assessment & Plan (1) Abdominal bloating: Code(s): R14.0 - Abdominal distension (gaseous) Plan: This patient has been lost to follow-up since 07/2020 Yoruba # dtr translates per pt request. She says she is having trouble with bloating after eating, and she does not feel that she is constipated. She admits that she used to be constipated in the past but she feels that this has resolved. She is not sure why however she has had hospitalizations due to worsening troubles with her heart. However, she does not often pass gas except when she drinks marilin gloria or drinks milk. She finds that the bloating lasts many hours and this will cause her a poor appetite throughout the day and nausea. No vomiting. She seems to remember that she found relief in the past with simethicone, but she recently lost her [facility] and it may not be covered - so we discuss GoodRx. She can get it for $9 with this, or on sale generic OTC which is cheaper for her. I also recommend that she start a probiotic. We discuss various reasons for bloating including HP, SIBBO, CIC, etc. She had the same complaint in 2020 and US was negative for gallstones. She also had neg Celiac panel. Her last EGD was in 2018 and at that time she was negative for H pylori and had only mild appearing superficial gastritis at best. Since she has early satiety (no wt loss) and nausea; and she is a diabetic (last A1C 6.6%). I will order GES. She is now on protonix 40mg qd as her cardiologists want it to protect the stomach. She has a history of PVCs and seems to be in AFib biopsy location today but is only on Plavix and aspirin for this no other blood thinners. ROV 5 weeks as she has upcoming hemorrhoid surgery 12/02. No abx or other tx until we see how she response to the addition of the simethicone. She is overdue for screening colonoscopy since her last was in 2016 and she had a tubular adenoma will have to discuss this at her next visit. (2) Early satiety: Code(s): R68.81 - Early satiety (3) GERD (gastroesophageal reflux disease): Code(s): K21.9 - Gastro-esophageal reflux disease without esophagitis (4) Chronic idiopathic constipation: Code(s): K59.04 - Chronic idiopathic constipation (5) Tubular adenoma of colon: Comment: 2016 scope= TA repeat in 5 years Code(s): D12.6 - Benign neoplasm of colon, unspecified Orders: Orders H pylori Ag Stool Today R14.0 - Abdominal distension (gaseous), R68.81 - Early satiety NM gastric emptying study Today R14.0 - Abdominal distension (gaseous), R68.81 - Early satiety Medications: New simethicone after meals 180 mg PO QID 30 days 120 caps 3RF R14.0 - Abdominal distension (gaseous) Coding Level of Care Code Est Pt Level 4 (46121) Diagnoses Abdominal bloating R14.0 Early satiety R68.81 GERD (gastroesophageal reflux disease) K21.9 Chronic idiopathic constipation K59.04 Tubular adenoma of colon D12.6
[2022-11-19 13:09] VITALS: BP 143/89; PULSE 96; BMI 36.3
== END 2022-11-19 14:06 | disposition home or self-care (01) ==
PROVIDERS: PCP Family Medicine; Visit Provider Nurse Practitioner
DX: R14.0 Abdominal distension (gaseous) (principal); R68.81 Early satiety; K21.9 Gastro-esophageal reflux disease without esophagitis; K59.04 Chronic idiopathic constipation; D12.6 Benign neoplasm of colon, unspecified
CPT/HCPCS: 99214

== ENCOUNTER → 2022-11-19 13:04 | Outpatient (BNVA) | payer MEDICARE, OTHER, SELFPAY | PROVIDERS: PCP Family Medicine; Visit Provider Nurse Practitioner | DX: I25.10 Atherosclerotic heart disease of native coronary artery without angina pectoris (principal); I49.3 Ventricular premature depolarization; G47.33 Obstructive sleep apnea (adult) (pediatric); K21.9 Gastro-esophageal reflux disease without esophagitis; K59.04 Chronic idiopathic constipation; D12.6 Benign neoplasm of colon, unspecified; R68.81 Early satiety; R14.0 Abdominal distension (gaseous) | CPT/HCPCS: 99212 ==

== ENCOUNTER 2022-11-20 11:02 | Outpatient (REF) | payer MEDICARE, OTHER, SELFPAY | END 2022-11-20 11:03 | disposition home or self-care (01) | LOC: HO.LNP 11:02 | PROVIDERS: Visit Provider Nurse Practitioner | DX: R14.0 Abdominal distension (gaseous) (principal); R68.81 Early satiety | CPT/HCPCS: 87338 ==

== ENCOUNTER → 2022-12-03 07:56 | Outpatient (REF) | payer MEDICARE, OTHER, SELFPAY ==
--- NOTE | ~2022-12-03 | NM_ITS ---
EXAMINATION: SC RADIONUCLIDE SOLID FOOD GASTRIC EMPTYING 4-HOUR STUDY CLINICAL INFORMATION: Early satiety. COMPARISON: None available. TECHNIQUE: A standard meal consisting of 4 oz of Egg Beaters brand tagged with 870 microcuries Tc-99m Sulfur Colloid, 8 oz water and 2 slices of toast with jelly was administered orally to the patient. Images were obtained using a dual head gamma camera in the anterior and posterior projections over of the stomach immediately post ingestion and at hourly intervals up to 4 hours post ingestion. The anterior and posterior counts at each time interval were averaged using the geometric mean and expressed as percentage of the immediate post ingestion counts. FINDINGS: There is good visualization of activity in the stomach immediately post ingestion. As the study progresses, there is delayed clearance of activity from the stomach and delayed visualization of progressively increasing small bowel activity. By the end of the study, there is significant retention noted in the stomach. Retention in the stomach at each time interval was: 1 hour 54% (normal 37%-90%) 2 hours 45% (normal 30%-60%) 3 hours 29% 4 hours 19% (normal 0%-10%) SC/SC gastric emptying study IMPRESSION: Abnormal grade 1 delayed 4 hour gastric emptying study. (For solid meal, rapid gastric emptying is less than 30% at 60 minutes. Delayed gastric emptying criteria is more than 60% remaining at 120 minutes or more than 10% at 240 minutes. The 4-hour value is the best discriminator of a normal or abnormal result). Gastric emptying study grading per JNMT Consensus Recommendations in 2008 (https://tech.snmjournals.org/content/36/144) Grade 1 (mild retention): 11-20% at 4h Grade 2 (moderate retention): 21-35% at 4h Grade 3 (severe retention): 36-50% at 4h Grade 4 (very severe retention): >50% retention at 4h
== END ==
LOC: HO.NUCMED 07:56
PROVIDERS: PCP Family Medicine; Visit Provider Nurse Practitioner
DX: R68.81 Early satiety (principal); R14.0 Abdominal distension (gaseous)
CPT/HCPCS: 78264; A9541

== ENCOUNTER 2022-12-20 09:00 | Outpatient (REF) | payer MEDICARE, OTHER, SELFPAY ==
[2022-12-20 09:44] LABS: Hematocrit 42.9 % (37.0-47.0); Hemoglobin 13.9 g/dl (12.0-16.0); Mean Corpuscular HGB Conc 32.4 g/dl (31.0-35.0); Mean Corpuscular Hemoglobin 27.3 pg (27.0-33.0); Mean Corpuscular Volume 84.1 fL (80.0-98.0); Mean Platelet Volume 11.1 fL (9.4-12.3); Platelet Count 243 X10*3/uL (160-400); Red Cell Distribution Width 14.3 % (11.0-16.0); White Blood Count 10.3 X10*3/uL (4.8-10.8)
[2022-12-20 10:12] LABS: Anion Gap 11 (12-20); Blood Urea Nitrogen 22 mg/dL (9-16); Calcium 9.1 mg/dL (8.4-10.2); Carbon Dioxide 24 mmol/L (22-29); Chloride 108 mmol/L (96-108); Estimated Glomerular Filt Rate > 60; Glucose Random 148 mg/dL (60-115); Potassium 4.3 mmol/L (3.3-5.1); Sodium 139 mmol/L (135-145)
[2022-12-20 11:07] LABS: INTERNATIONAL NORM RATIO 0.9 (0.9-1.1); Prothrombin Time 11.1 SEC (11.1-13.3)
== END 2022-12-20 09:01 | disposition home or self-care (01) ==
LOC: HO.LAB 09:00
PROVIDERS: Visit Provider Internal Medicine
DX: I25.10 Atherosclerotic heart disease of native coronary artery without angina pectoris (principal)
CPT/HCPCS: 36415; 80048; 85027; 85610

== ENCOUNTER 2022-12-23 11:01 | Outpatient (AMB) | payer MEDICARE, MEDICAID, SELFPAY ==
--- NOTE | 2022-12-23 11:06 | MHC.OFFVIS ---
Intake Vital Signs 12/23/22 11:07 Height 5 ft 2 in Weight 198 lb BMI 36.2 Intake Visit Reasons: New Prob- Left wrist ganglion cyst Intake Note: Araseli 67 yr old right hand dominant female presents today for a new problem visit for her left wrist ganglion cyst. Hx of Fracture of scaphoid of right wrist DOI 05/30/22. States has a cyst in her volar aspect of wrist that has been increase in size in the last 5 years. States its painful when she puts on a watch. Also is having pain in her CMC joint and at time has sharp radiating pain to her arm. Hx of DM but doesn't take any medication. A1C 6.6. Allergies peanut Allergy (Severe, Verified 12/23/22 11:14) angioedema lisinopril [LISINOPRIL] Allergy (Intermediate, Verified 12/23/22 11:14) RASH, cough zoster vaccine live [SHINGLES VACCINE] Allergy (Intermediate, Verified 12/23/22 11:14) LOCALIZED REDNESS, SWELLING, FEVER,COUGH latex [LATEX] Allergy (Unknown, Verified 12/23/22 11:14) RASH pineapple [PINEAPPLE] Allergy (Unknown, Verified 12/23/22 11:14) RASH strawberry [STRAWBERRY] Allergy (Unknown, Verified 12/23/22 11:14) RASH adhesive Allergy (Verified 12/23/22 11:14) Blister HPI New Prob- Left wrist ganglion cyst HPI Details Araseli Leary is a 67-year-old right hand dominant Citizen Of [place] speaking woman who presents today to the office for an evaluation of left volar wrist ganglion cyst. She says the cyst has been increasing in size and is been there for about 5 years. She also has some pain in the base of her left thumb. The patient has a history of fractured scaphoid of right wrist, which was resolved. DOI 05/30/22. She has a history of diabetes mellitus but doesn't take any medication. Her current HbA1C was 6.6%. She has a scheduled heart surgery with grants specialist on 12/25/22. She has follow-up with grants specialist on 01/08/23. [facility] Medical History (Updated 12/23/22 @ 12:00 by Virginia Barton MD) Cataract GUADALUPE (obstructive sleep apnea) Obesity (BMI 30-39.9) Hemorrhoids with complication Family history of ovarian cancer GUADALUPE (obstructive sleep apnea) Hemorrhoids with complication NSVT (nonsustained ventricular tachycardia) PVC (premature ventricular contraction) Surgical History (Updated 11/19/22 @ 14:48 by DYLAN Torres) History of coronary artery stent placement History of esophagogastroduodenoscopy (EGD) Hx of colonoscopy History of shoulder surgery (~04/29/18) History of lumbar laminectomy Family History Father Cardiovascular disease Mother Osteoarthritis Family/Other Ovarian cancer, Onset Age: 30 Social History Household Members: Spouse Alcohol intake: never Patient Tobacco Use Status: Never used Tobacco service: No Current occupational status: unemployed Current occupation: rt handed Review of Systems Const All systems reviewed & are unremarkable except as noted in HPI and below Physical Exam Vital Signs: BMI result Body Mass Index 36.2 Const General: cooperative, healthy appearing and no acute distress Orientation/consciousness: patient oriented x3 HEENT Head: Yes normocephalic and Yes atraumatic Eyes EOM: EOMs intact bilaterally Resp Effort & Inspection: normal respiratory effort and able to speak in complete sentences Cardio Jugular venous distension: no JVD Skin General skin exam: turgor normal, ecchymosis (No) and erythema (No) Rashes: no rashes Trauma: no lacerations or abrasions Neuro Other: Vascular: Cap refill brisk General: patient oriented x3 Extrem Other: The patient is alert, oriented, and in no acute distress Left upper extremity exam: She has a left volar wrist mass consistent with a possible volar wrist ganglion. It measures approximately 1.6 cm in diameter. It is soft and mildly tender to palpation with a 2/10 tenderness to palpation. She also has 2/10 tenderness over the left 1st dorsal compartment. She also has 3 to 4/10 tenderness to palpation over the basal joint of the left thumb. Positive shoulder sign. Positive CMC grind. She can make a fist and extend all of her digits. Psych Appearance: grossly normal Affect: normal affect Attitude: cooperative Assessment & Plan Assessment & Plan (1) Ganglion cyst of volar aspect of left wrist: Code(s): M67.432 - Ganglion, left wrist (2) Left hand pain: Code(s): M79.642 - Pain in left hand Plan 1. Left volar wrist ganglion/mass Measures approximately 1.6 cm in diameter. Present for about 5 years 2. Left basal joint tenderness to palpation 3 to 07/21 I educated her about this condition and activity modification. We fitted her with a neoprene thumb spica splint to wear with daytime activities. The risks and benefits of operative treatment were discussed with the patient and the patient wishes to proceed with surgery. These risks include, but are not limited to risk of damage to blood vessels, nerves, tendons, infection, recurrence, incomplete relief of preoperative symptoms, persistent pain, possible need for further surgery and the risks associated with regional blocks and anesthesia. We were planning to proceed with a left volar wrist ganglion/mass excision. However, the patient informed us that she is having heart surgery on . I explained to her that the heart surgery is much more important, and that she will need to recover from her heart surgery and have clearance from her grants specialist before we consider any other surgical procedures. She will schedule an appointment with me for perhaps sometime this winter. 2. Right scaphoid tubercle fracture, non-displaced, from a fall DOI: 05/30/22 Pain is resolved now. This went on to heal well. Scribed for Dr. Virginia Barton by Wilfred Madrid, territory sales manager medical, on 12/23/2022. I, Dr. Virginia Barton, have personally reviewed and agree with the information entered by the scribe. Coding Level of Care Code Est Pt Level 4 (91630) Diagnoses Ganglion cyst of volar aspect of left wrist M67.432 Left hand pain M79.642
[2022-12-23 11:07] VITALS: BMI 36.2
== END 2022-12-23 11:59 | disposition home or self-care (01) ==
PROVIDERS: PCP Family Medicine; Visit Provider Orthopaedic Surgery
DX: M67.432 Ganglion, left wrist (principal); M79.642 Pain in left hand
CPT/HCPCS: 99214

== ENCOUNTER → 2022-12-23 11:01 | Outpatient (BNVA) | payer MEDICARE, MEDICAID, SELFPAY | PROVIDERS: PCP Family Medicine; Visit Provider Orthopaedic Surgery | DX: M67.432 Ganglion, left wrist (principal); M79.642 Pain in left hand | CPT/HCPCS: 99212 ==

== ENCOUNTER 2022-12-24 13:31 | Outpatient (AMB) | payer MEDICARE, SELFPAY ==
--- NOTE | 2022-12-24 13:40 | MHC.OFFVIS ---
Intake Vital Signs 12/24/22 13:41 Height 5 ft 2 in Weight 197 lb 15.602 oz BMI 36.2 BP 136/83 Blood Pressure Location Lt brachial Position Sitting Pulse 79 Intake Visit Reasons: 5 Week Follow Up GES Intake Note: Patient presents to in office visit today in 5 weeks follow up of GES. CC: Patient reports she continues to have bloating and abdominal discomfort. Denies other GI symptoms today. Airplane Mechanic Required: Yes Airplane Mechanic Name: daughter Accompanied by: Self / Same As Patient Allergies peanut Allergy (Severe, Verified 12/24/22 13:44) angioedema lisinopril [LISINOPRIL] Allergy (Intermediate, Verified 12/24/22 13:44) RASH, cough zoster vaccine live [SHINGLES VACCINE] Allergy (Intermediate, Verified 12/24/22 13:44) LOCALIZED REDNESS, SWELLING, FEVER,COUGH latex [LATEX] Allergy (Unknown, Verified 12/24/22 13:44) RASH pineapple [PINEAPPLE] Allergy (Unknown, Verified 12/24/22 13:44) RASH strawberry [STRAWBERRY] Allergy (Unknown, Verified 12/24/22 13:44) RASH adhesive Allergy (Verified 12/24/22 13:44) Blister HPI 5 Week Follow Up GES HPI Details Assessment & Plan (1) Abdominal bloating: Code(s): R14.0 - Abdominal distension (gaseous) Plan: This patient has been lost to follow-up since 07/2020 [place] # dtr translates per pt request. She says she is having trouble with bloating after eating, and she does not feel that she is constipated. She admits that she used to be constipated in the past but she feels that this has resolved. She is not sure why however she has had hospitalizations due to worsening troubles with her heart. However, she does not often pass gas except when she drinks marilin gloria or drinks milk. She finds that the bloating lasts many hours and this will cause her a poor appetite throughout the day and nausea. No vomiting. She seems to remember that she found relief in the past with simethicone, but she recently lost her [facility] and it may not be covered - so we discuss GoodRx. She can get it for $9 with this, or on sale generic OTC which is cheaper for her. I also recommend that she start a probiotic. We discuss various reasons for bloating including HP, SIBBO, CIC, etc. She had the same complaint in 2020 and US was negative for gallstones. She also had neg Celiac panel. Her last EGD was in 2018 and at that time she was negative for H pylori and had only mild appearing superficial gastritis at best. Since she has early satiety (no wt loss) and nausea; and she is a diabetic (last A1C 6.6%). I will order GES. She is now on protonix 40mg qd as her cardiologists want it to protect the stomach. She has a history of PVCs and seems to be in AFib biopsy location today but is only on Plavix and aspirin for this no other blood thinners. ROV 5 weeks as she has upcoming hemorrhoid surgery 12/02. No abx or other tx until we see how she response to the addition of the simethicone. She is overdue for screening colonoscopy since her last was in 2016 and she had a tubular adenoma will have to discuss this at her next visit. (2) Early satiety: Code(s): R68.81 - Early satiety (3) GERD (gastroesophageal reflux disease): Code(s): K21.9 - Gastro-esophageal reflux disease without esophagitis (4) Chronic idiopathic constipation: Code(s): K59.04 - Chronic idiopathic constipation (5) Tubular adenoma of colon: Comment: 2016 scope= TA repeat in 5 years Code(s): D12.6 - Benign neoplasm of colon, unspecified Orders: Orders H pylori Ag Stool Today R14.0 - Abdominal distension (gaseou s), R68.81 - Early satiety NM gastric emptyin g study Today R14.0 - Abdominal distension (gaseou s), R68.81 - Early satiety Medications: New simethicone aft er meals 180 mg PO QID 30 days 120 caps 3RF R14.0 - Abdominal distension (gaseou s) LABS: 11/20/22-[address]: ORDERED: H pylori Ag St Test Result Flag Refere nce Si te H pylori Ag St SEE NOTE QU M HELICOB ACTER PYLORI AG, E IA, STOOL Micro Number: [id number] Test Status: Final Specimen Source: Stool Sp ecimen Quality: A dequate H .pylori Ag: Not Detected GASTRIC EMPTYING STUDY 12/03/22 IMPRESSION: Abnormal grade 1 delayed 4 hour gastric emptying study. (For solid meal, rapid gastric emptying is less than 30% at 60 minutes. Delayed gastric emptying criteria is more than 60% remaining at 120 minutes or more than 10% at 240 minutes. The 4-hour value is the best discriminator of a normal or abnormal result). Gastric emptying study grading per JNMT Consensus Recommendations in 2008 (https://tech.snmjournals.org/content/36/44) Grade 1 (mild retention): 11-20% at 4h Grade 2 (moderate retention): 21-35% at 4h Grade 3 (severe retention): 36-50% at 4h Grade 4 (very severe retention): >50% retention at 4h TODAYS VISIT [place]er # dtr translates per pt request. NOT YET STARTED ON REGLAN we discuss the results and will start her on 5mg qidachs. BUT she will be having another cardiac stent tomorrow, so we will put off the follow up until 5 weeks (she will not start the new med until a week or 2). I let them know about the most common adverse effects and even the rare once and if she has any concerns they can stop the medication and or call my office. I think it would be best not to start the medication until she is done with her stenting procedure so she can tell what symptoms might be related to this as opposed to what might be related to a new medication. It she did receive the simethicone but has not helped the bloating so I think this is more due to the delayed gastric emptying then to gas trapping. She continues on her pantoprazole 40 mg once a day with good control of her heartburn. Return office visit in 5 weeks to evaluate the Reglan. [facility] Medical History Cataract GUADALUPE (obstructive sleep apnea) Obesity (BMI 30-39.9) Hemorrhoids with complication Family history of ovarian cancer GUADALUPE (obstructive sleep apnea) Hemorrhoids with complication NSVT (nonsustained ventricular tachycardia) PVC (premature ventricular contraction) Surgical History History of coronary artery stent placement History of esophagogastroduodenoscopy (EGD) Hx of colonoscopy History of shoulder surgery (~04/29/18) History of lumbar laminectomy Family History Father Cardiovascular disease Mother Osteoarthritis Family/Other Ovarian cancer, Onset Age: 30 Social History Household Members: Spouse Alcohol intake: never Patient Tobacco Use Status: Never used Tobacco service: No Current occupational status: unemployed Current occupation: rt handed Review of Systems Const Denies fatigue, Denies fever(s), Denies night sweats, Reports poor appetite and Denies weight loss ENT Reports Normal hearing present, Denies dental pain, Denies dysphagia, Denies hearing loss, Denies mouth pain, Denies odynophagia, Denies throat swelling, Denies tongue swelling and Reports other (Dentition adequate) Card Reports no additional complaints Resp Reports no additional complaints GI Denies abdominal pain, Denies melena, Reports bloating, Denies hematochezia, Denies constipation, Denies GI cramping, Denies dysphagia, Denies excessive flatus, Reports early satiety, Reports heartburn, Denies diarrhea, Denies nausea, Denies odynophagia, Denies vomiting and Denies hematemesis Skin/Breast Denies pruritus, Denies lesions, Denies rash and Denies jaundice Neuro Reports Normal hearing present and Denies Abnormal speech present Endo Denies fatigue Aller/Immun Denies throat swelling and Denies tongue swelling Physical Exam Vital Signs: Last Vital Signs Pulse 79 12/24/22 13:41 BP 136/83 12/24/22 13:41 BMI result Body Mass Index 36.2 Const General: cooperative, no acute distress, well developed and well groomed Nutritional Appearance: well nourished and obese morbidly obese Orientation/consciousness: oriented to person, oriented to place and oriented to time Limitations: language barrier HEENT Head: Yes normocephalic and Yes atraumatic Eyes General: appearance normal, both eyes and all related structures Pupils: Equal, round and reactive pupils present Neck Neck: Yes normal visual inspection and Yes no lymphadenopathy Thyroid: Thyroid normal Resp Effort & Inspection: normal respiratory effort and able to speak in complete sentences Auscultation: clear to auscultation bilaterally Cardio Rate: regular rate Rhythm: regular rhythm Heart sounds: Normal, physiologic split S2 sound present Peripheral pulses: radial pulses present and posterior tibial pulses present GI Inspection: No distended, Yes Abdominal panniculus present and Yes obesity Palpation (GI): Soft to palpation, nontender, no guarding, not rigid and No hepatosplenomegaly present Percussion: Yes normal to percussion Auscultation: normal bowel sounds Rectal Exam - Female: deferred Skin General skin exam: no rashes or lesions noted, turgor normal, skin not dry, no jaundice, No spider nevi and no striae Rashes: no rashes Nails: normal Neuro General: oriented to person, oriented to place and oriented to time Cranial nerves: Yes Equal, round and reactive pupils present and Yes Normal hearing present Speech: No Abnormal speech present Extrem General: Yes normal to inspection, No clubbing, No cyanosis and No edema Psych Appearance: grossly normal and well kempt Mental Status: mental status grossly normal Speech and movement: Normal speech and movement present Affect: normal affect Attitude: cooperative Thought process: Normal thought process present and not confabulating Thought content: Normal thought content present Insight: Limited insight present (Psych) Judgement: Limited judgement present (Psych) Assessment & Plan Assessment & Plan (1) Delayed gastric emptying: Code(s): K30 - Functional dyspepsia Plan: [place]er # dtr translates per pt request. NOT YET STARTED ON REGLAN we discuss the results and will start her on 5mg qidachs. BUT she will be having another cardiac stent tomorrow, so we will put off the follow up until 5 weeks (she will not start the new med until a week or 2). I let them know about the most common adverse effects and even the rare once and if she has any concerns they can stop the medication and or call my office. I think it would be best not to start the medication until she is done with her stenting procedure so she can tell what symptoms might be related to this as opposed to what might be related to a new medication. It she did receive the simethicone but has not helped the bloating so I think this is more due to the delayed gastric emptying then to gas trapping. She continues on her pantoprazole 40 mg once a day with good control of her heartburn. Return office visit in 5 weeks to evaluate the Reglan.. Discuss if she is ready for repeat colonoscopy at the next visit when she has completed her cardiac stenting. Her last was in 2017. (2) Abdominal bloating: Code(s): R14.0 - Abdominal distension (gaseous) (3) GERD (gastroesophageal reflux disease): Code(s): K21.9 - Gastro-esophageal reflux disease without esophagitis (4) Tubular adenoma of colon: Comment: 2016 scope= TA repeat in 5 years Code(s): D12.6 - Benign neoplasm of colon, unspecified Medications: New metoclopramide HCl (Reglan) 5 mg PO QIDACHS 120 tabs 6RF K30 - Functional dyspepsia Coding Level of Care Code Est Pt Level 3 (87769) Diagnoses Delayed gastric emptying K30 Abdominal bloating R14.0 GERD (gastroesophageal reflux disease) K21.9 Tubular adenoma of colon D12.6
[2022-12-24 13:41] VITALS: BP 136/83; PULSE 79; BMI 36.2
== END 2022-12-24 14:15 | disposition home or self-care (01) ==
PROVIDERS: PCP Family Medicine; Visit Provider Nurse Practitioner
DX: K30 Functional dyspepsia (principal); R14.0 Abdominal distension (gaseous); K21.9 Gastro-esophageal reflux disease without esophagitis; D12.6 Benign neoplasm of colon, unspecified
CPT/HCPCS: 99213

== ENCOUNTER → 2022-12-24 13:31 | Outpatient (BNVA) | payer MEDICARE, OTHER, SELFPAY | PROVIDERS: PCP Family Medicine; Visit Provider Nurse Practitioner | DX: K30 Functional dyspepsia (principal); K21.9 Gastro-esophageal reflux disease without esophagitis; D12.6 Benign neoplasm of colon, unspecified; R14.0 Abdominal distension (gaseous) | CPT/HCPCS: 99212 ==

== ENCOUNTER → 2022-12-25 23:59 | Outpatient (BNV) | payer MEDICARE, SELFPAY | PROVIDERS: PCP Family Medicine; Visit Provider Internal Medicine Cardiovascular Disease | DX: I20.8 Other forms of angina pectoris (principal); I25.118 Atherosclerotic heart disease of native coronary artery with other forms of angina pectoris | CPT/HCPCS: 92928; 93458; 99152 ==

== ENCOUNTER 2023-01-08 13:20 | Outpatient (AMB) | payer MEDICARE, SELFPAY ==
[2023-01-08 13:30] VITALS: BP 120/72; PULSE 77; BMI 36.4
--- NOTE | 2023-01-08 13:30 | A.OFFVIS_ITS ---
Intake Vital Signs 01/08/23 13:30 Height 5 ft 2 in Weight 199 lb 4.766 oz BMI 36.4 BP 120/72 Blood Pressure Location Lt brachial Position Sitting Pulse 77 Pulse Source Pulse Oximeter Intake Visit Reasons: 2 wk s/p cath Intake Note: 2w s/p cath Surgical Dental Assistant Required: No Manufacturing Tech: Manufacturing Tech Present Accompanied by: Daughter Allergies peanut Allergy (Severe, Verified 01/08/23 13:38) angioedema lisinopril [LISINOPRIL] Allergy (Intermediate, Verified 01/08/23 13:38) RASH, cough zoster vaccine live [SHINGLES VACCINE] Allergy (Intermediate, Verified 01/08/23 13:38) LOCALIZED REDNESS, SWELLING, FEVER,COUGH latex [LATEX] Allergy (Unknown, Verified 01/08/23 13:38) RASH pineapple [PINEAPPLE] Allergy (Unknown, Verified 01/08/23 13:38) RASH strawberry [STRAWBERRY] Allergy (Unknown, Verified 01/08/23 13:38) RASH adhesive Allergy (Verified 01/08/23 13:38) Blister Medication List - Last Reconciled 01/08/23 by LORENZO KaurC albuterol sulfate 90 mcg/actuation (ProAir HFA) 2 puffs PO Q4H aspirin 81 mg PO DAILY atorvastatin 80 mg PO BEDTIME clopidogrel 75 mg PO DAILY fluticasone propionate 50 mcg/actuation sprays intranasal hydrocortisone 1% [place] isosorbide mononitrate ER 30 mg PO DAILY lidocaine 5% 1 appl topical PRN loratadine 10 mg PO BEDTIME metoclopramide HCl (Reglan) 5 mg PO QIDACHS metoprolol succinate ER 100 mg (2 x 50 mg) PO QAM montelukast 10 mg PO BEDTIME nitroglycerin 0.4 mg sublingual Q5M PRN pantoprazole 40 mg PO QAM pregabalin (Lyrica) 50 mg PO BID simethicone 180 mg PO QID 30 days tiotropium bromide 1.25 mcg/actuation (Spiriva Respimat) 2 puffs inhalation DAILY HPI 2 wk s/p cath HPI Details Araseli is a 67-year-old female with past medical history obesity, hyperlipidemia, PVCs, coronary artery disease, NSTEMI with occluded RCA and RCA stents who recently reported chest discomfort and underwent a cardiac catheterization receiving stent to the LAD. She now presents for follow-up. Today she reports that her prior chest discomfort has resolved. Which she has been getting is a warm feeling across her chest which occurs randomly, can last a few minutes and resolves. No exertional symptoms. No shortness of breath, PND, orthopnea or edema. No presyncope, syncope, falls. No bleeding issues. Right radial catheterization site is feeling good. Taking medications as directed. Daughter is present. [facility] Medical History Cataract GUADALUPE (obstructive sleep apnea) Obesity (BMI 30-39.9) Hemorrhoids with complication Family history of ovarian cancer GUADALUPE (obstructive sleep apnea) Hemorrhoids with complication NSVT (nonsustained ventricular tachycardia) PVC (premature ventricular contraction) Surgical History History of coronary artery stent placement History of esophagogastroduodenoscopy (EGD) Hx of colonoscopy History of shoulder surgery (~04/29/18) History of lumbar laminectomy Family History Father Cardiovascular disease Mother Osteoarthritis Family/Other Ovarian cancer, Onset Age: 30 Social History Household Members: Spouse Alcohol intake: never Patient Tobacco Use Status: Never used Tobacco service: No Current occupational status: unemployed Current occupation: rt handed Review of Systems Const All systems reviewed & are unremarkable except as noted in HPI and below ENT Reports dizziness Card Details: Warm sensation across her chest Denies chest pain, Denies chest pain at rest, Denies chest pain with activity, Denies rapid heart rate, Denies pedal edema, Denies edema, Denies leg edema, Denies lightheadedness, Denies palpitations, Denies dyspnea, Denies dyspnea on exertion and Denies orthopnea Resp Denies cough, Denies dyspnea and Denies dyspnea on exertion GI Denies hematochezia and Denies change in stool character Musc Details: Right radial catheterization site feeling good Denies abnormal gait, Denies limited range of motion, Denies muscle cramps, Denies muscle weakness, Denies numbness, Denies radiating pain into limb, Denies stiffness and Denies tingling Neuro Denies abnormal gait, Reports dizziness, Denies numbness and Denies tingling Endo Denies palpitations Physical Exam Vital Signs: Last Vital Signs Pulse 77 01/08/23 13:30 BP 120/72 01/08/23 13:30 BMI result Body Mass Index 36.4 Const General: cooperative, healthy appearing, comfortable and no acute distress Orientation/consciousness: patient oriented x3 Neck Neck: Yes normal visual inspection Resp Effort & Inspection: normal respiratory effort Auscultation: clear to auscultation bilaterally, no crackles, no rales, no rhonchi and no wheezes Cardio Jugular venous distension: no JVD Rate: regular rate Rhythm: regular rhythm Heart sounds: S1 normal heart sound present, S2 normal heart sound present, no murmurs and no rubs Neuro General: patient oriented x3 Extrem General: Yes normal to inspection and No no pedal edema Psych Appearance: grossly normal Mental Status: mental status grossly normal Speech and movement: Normal speech and movement present Assessment & Plan Assessment & Plan (1) Atherosclerotic cardiovascular disease: Code(s): I25.10 - Atherosclerotic heart disease of [place] coronary artery without angina pectoris Plan: History of NSTEMI, 09/2021. Cardiac catheterization at that time showed occluded RCA, stents placed. Cardiac risks of obesity and hyperlipidemia. She recently reported chest discomfort and underwent diagnostic cardiac catheterization on 12/25/2022 showing proximal LAD 85% stenosis, MOOK placed. She does have residual 1st OM and proximal left circumflex stenosis. RCA stents were patent. Last echocardiogram 07/21/2022 showed EF 50-55%, mild LVH, mild MR, basal inferior akinetic, no significant change from 09/2021. Today she reports that her prior chest discomfort has resolved. She is noticing a warm sensation that goes across her chest which occurs randomly. Will have her continue on current meds including aspirin indefinitely. Plavix 75 mg daily uninterrupted for at least 1 year. Continue high-dose atorvastatin with ideal LDL goal less than 70. Labs done 11/05/2022 showed LDL 56. Continue isosorbide and metoprolol. Signs and symptoms of angina discussed. She has been signed up for cardiac rehab at [facility] and has her 1st appointment on 01/26/2023. Cardiology office visit in 3 months, sooner if needed. (2) S/P cardiac catheterization: Comment: 12/25/2022, left main normal, proximal LAD 85% stenosis, stent placed, 1st OM 80% stenosis, proximal circumflex 50% stenosis, RCA stents patent Code(s): Z98.890 - Other specified postprocedural states Plan: Right radial catheterization site well healed (3) History of cardiac cath: Comment: 09/21/2021 the left main normal, lad proximal 70% stenosis, 1st diagonal 50% stenosis, left circumflex proximal 60% stenosis, RCA mid 100% stenosis, 2 MOOK placed Code(s): Z98.890 - Other specified postprocedural states Coding Level of Care Code Est Pt Level 4 (66986) Diagnoses Atherosclerotic cardiovascular disease I25.10 S/P cardiac catheterization Z98.890 History of cardiac cath Z98.890 Time Spent (min) 28
== END 2023-01-08 13:58 | disposition home or self-care (01) ==
PROVIDERS: PCP Family Medicine; Visit Provider Nurse Practitioner Family
DX: I25.10 Atherosclerotic heart disease of native coronary artery without angina pectoris (principal); Z98.890 Other specified postprocedural states
CPT/HCPCS: 99214

== ENCOUNTER → 2023-01-08 13:20 | Outpatient (BNVA) | payer MEDICARE, OTHER, SELFPAY | PROVIDERS: PCP Family Medicine; Visit Provider Nurse Practitioner Family | DX: I25.10 Atherosclerotic heart disease of native coronary artery without angina pectoris (principal); I25.2 Old myocardial infarction; Z79.82 Long term (current) use of aspirin; Z79.899 Other long term (current) drug therapy; Z98.890 Other specified postprocedural states | CPT/HCPCS: 99212 ==

== ENCOUNTER 2023-01-15 13:55 | Outpatient (REF) | payer MEDICARE, SELFPAY | END 2023-01-15 13:56 | disposition home or self-care (01) | LOC: HO.HAP 13:55 | PROVIDERS: Visit Provider Family Medicine | DX: Z13.89 Encounter for screening for other disorder (principal) ==

== ENCOUNTER 2023-01-28 13:58 | Outpatient (AMB) | payer MEDICARE, MEDICAID, SELFPAY ==
--- NOTE | 2023-01-28 13:59 | MHC.OFFVIS ---
Intake Vital Signs 01/28/23 14:01 Height 5 ft 2 in Weight 200 lb 9.93 oz BMI 36.7 BP 142/80 H Blood Pressure Location Lt brachial Position Sitting Pulse 76 Intake Visit Reasons: 5 week follow up Intake Note: Patient presents to in office visit today in 5 weeks follow up of abdominal bloating. CC: Patient reports she has been doing well with new mediations. Denies having any new GI symptoms or concerns today. Medical Staff Physician Required: Yes Medical Staff Physician Name: cliff Accompanied by: Self / Same As Patient Allergies peanut Allergy (Severe, Verified 01/28/23 14:15) angioedema lisinopril [LISINOPRIL] Allergy (Intermediate, Verified 01/28/23 14:15) RASH, cough zoster vaccine live [SHINGLES VACCINE] Allergy (Intermediate, Verified 01/28/23 14:15) LOCALIZED REDNESS, SWELLING, FEVER,COUGH latex [LATEX] Allergy (Unknown, Verified 01/28/23 14:15) RASH pineapple [PINEAPPLE] Allergy (Unknown, Verified 01/28/23 14:15) RASH strawberry [STRAWBERRY] Allergy (Unknown, Verified 01/28/23 14:15) RASH adhesive Allergy (Verified 01/28/23 14:15) Blister HPI 5 week follow up HPI Details Assessment & Plan (1) Delayed gastric emptying: Code(s): K30 - Functional dyspepsia Plan: Mongolian # dtr translates per pt request. NOT YET STARTED ON REGLAN we discuss the results and will start her on 5mg qidachs. BUT she will be having another cardiac stent tomorrow, so we will put off the follow up until 5 weeks (she will not start the new med until a week or 2). I let them know about the most common adverse effects and even the rare once and if she has any concerns they can stop the medication and or call my office. I think it would be best not to start the medication until she is done with her stenting procedure so she can tell what symptoms might be related to this as opposed to what might be related to a new medication. It she did receive the simethicone but has not helped the bloating so I think this is more due to the delayed gastric emptying then to gas trapping. She continues on her pantoprazole 40 mg once a day with good control of her heartburn. Return office visit in 5 weeks to evaluate the Reglan.. Discuss if she is ready for repeat colonoscopy at the next visit when she has completed her cardiac stenting. Her last was in 2017. (2) Abdominal bloating: Code(s): R14.0 - Abdominal distension (gaseous) (3) GERD (gastroesophageal reflux disease): Code(s): K21.9 - Gastro-esophageal reflux disease without esophagitis (4) Tubular adenoma of colon: Comment: 2016 scope= TA repeat in 5 years Code(s): D12.6 - Benign neoplasm of colon, unspecified Medications: New metoclopramide HCl (Reglan) 5 mg PO QIDACHS 1 20 tabs 6RF K30 - Functional d yspepsia Laboratory Tests 11/05/22 12/20/22 08:43 09:17 WBC 10.3 Hgb 13.9 Hct 42.9 Estimated GFR > 60 Total Bilirubin 0.3 AST 17 ALT 22 Alkaline Phosphata se 96 TSH 2.24 TODAYS VISIT Mongolian # grandtr translates per patient request. She is overdue for colonoscopy which is been overlooked because she has been having multiple cardiac caths and problems. She says she is now stable and ready to be scheduled for colonoscopy. She is now doing well on the reglan and the protonix and simethicone, she is having absolutely no adverse effects. There are no prior problems with anesthesia or sedation. Her cardiac disease is now stable (Arsenio) and she denies any respiratory problems. She is not on any anticoagulants therapy. No ID problems. She had a TA in 2017 ROV 6 mos. [facility] Medical History Cataract GUADALUPE (obstructive sleep apnea) Obesity (BMI 30-39.9) Hemorrhoids with complication Family history of ovarian cancer GUADALUPE (obstructive sleep apnea) Hemorrhoids with complication NSVT (nonsustained ventricular tachycardia) PVC (premature ventricular contraction) Surgical History History of coronary artery stent placement History of esophagogastroduodenoscopy (EGD) Hx of colonoscopy History of shoulder surgery (~04/29/18) History of lumbar laminectomy Family History Father Cardiovascular disease Mother Osteoarthritis Family/Other Ovarian cancer, Onset Age: 30 Social History Household Members: Spouse Alcohol intake: never Patient Tobacco Use Status: Never used Tobacco service: No Current occupational status: unemployed Current occupation: rt handed Review of Systems Const Denies fatigue, Denies fever(s), Denies night sweats, Denies poor appetite and Denies weight loss ENT Reports Normal hearing present, Denies dental pain, Denies dysphagia, Denies hearing loss, Denies mouth pain, Denies odynophagia, Denies throat swelling, Denies tongue swelling and Reports other (Dentition adequate) Card Reports no additional complaints Resp Reports no additional complaints GI Denies abdominal pain, Denies melena, Denies bloating, Denies hematochezia, Denies constipation, Denies GI cramping, Denies dysphagia, Denies excessive flatus, Reports early satiety, Reports heartburn, Denies diarrhea, Reports nausea, Denies odynophagia, Denies vomiting and Denies hematemesis Skin/Breast Denies pruritus, Denies lesions, Denies rash and Denies jaundice Neuro Reports Normal hearing present and Denies Abnormal speech present Endo Denies fatigue Aller/Immun Denies throat swelling and Denies tongue swelling Physical Exam Vital Signs: Last Vital Signs Pulse 76 01/28/23 14:01 BP 142/80 H 01/28/23 14:01 BMI result Body Mass Index 36.7 Const General: cooperative, no acute distress, well developed and well groomed Nutritional Appearance: well nourished and obese Orientation/consciousness: oriented to person, oriented to place and oriented to time Limitations: language barrier HEENT Head: Yes normocephalic and Yes atraumatic Eyes General: appearance normal, both eyes and all related structures Pupils: Equal, round and reactive pupils present Neck Neck: Yes normal visual inspection and Yes no lymphadenopathy Thyroid: Thyroid normal Resp Effort & Inspection: normal respiratory effort and able to speak in complete sentences Auscultation: clear to auscultation bilaterally Cardio Rate: regular rate Rhythm: regular rhythm Heart sounds: Normal, physiologic split S2 sound present Peripheral pulses: radial pulses present and posterior tibial pulses present GI Inspection: No distended, Yes Abdominal panniculus present and Yes obesity Palpation (GI): Soft to palpation, nontender, no guarding, not rigid and No hepatosplenomegaly present Percussion: Yes normal to percussion Auscultation: normal bowel sounds Rectal Exam - Female: deferred Skin General skin exam: no rashes or lesions noted, turgor normal, skin not dry, no jaundice, No spider nevi and no striae Rashes: no rashes Nails: normal Neuro General: oriented to person, oriented to place and oriented to time Cranial nerves: Yes Equal, round and reactive pupils present and Yes Normal hearing present Speech: No Abnormal speech present Extrem General: Yes normal to inspection, No clubbing, No cyanosis and No edema Psych Appearance: grossly normal and well kempt Mental Status: mental status grossly normal Speech and movement: Normal speech and movement present Affect: normal affect Attitude: cooperative Thought process: Normal thought process present and not confabulating Thought content: Normal thought content present Insight: Fair insight present (Psych) Judgement: Fair judgement present (Psych) Assessment & Plan Assessment & Plan (1) Delayed gastric emptying: Comment: Confirmed GES Code(s): K30 - Functional dyspepsia Plan: Mongolian # grandtr translates per patient request. She is overdue for colonoscopy which is been overlooked because she has been having multiple cardiac caths and problems. She says she is now stable and ready to be scheduled for colonoscopy. She is now doing well on the reglan and the protonix and simethicone, she is having absolutely no adverse effects. There are no prior problems with anesthesia or sedation. Her cardiac disease is now stable (Arsenio) and she denies any respiratory problems. She is not on any anticoagulants therapy. No ID problems. She had a TA in 2017 ROV 6 mos. (2) Chronic idiopathic constipation: Code(s): K59.04 - Chronic idiopathic constipation (3) GERD (gastroesophageal reflux disease): Code(s): K21.9 - Gastro-esophageal reflux disease without esophagitis (4) Tubular adenoma of colon: Comment: 2016 scope= TA repeat in 5 years Code(s): D12.6 - Benign neoplasm of colon, unspecified Orders: Orders Colonoscopy - GI Use Only Today D12.6 - Benign neoplasm of colon, unspecified Medications: New peg 3350-electrolytes 236-22.74-6.74 -5.86 gram (Golytely) until fecal effluent is clear; do not exceed a total volume of 2,000 mL 240 mL PO Q10M 1 day 4,000 mL 0RF Z12.11 - Encounter for screening for malignant neoplasm of colon pantoprazole 40 mg PO QAM 30 tabs 6RF Refilled simethicone after meals 180 mg PO QID 30 days 120 caps 6RF R14.0 - Abdominal distension (gaseous) metoclopramide HCl (Reglan) 5 mg PO QIDACHS 120 tabs 6RF K30 - Functional dyspepsia Coding Level of Care Code Est Pt Level 4 (60153) Diagnoses Delayed gastric emptying K30 Chronic idiopathic constipation K59.04 GERD (gastroesophageal reflux disease) K21.9 Tubular adenoma of colon D12.6
[2023-01-28 14:01] VITALS: BP 142/80; PULSE 76; BMI 36.7
== END 2023-01-28 15:16 | disposition home or self-care (01) ==
PROVIDERS: PCP Family Medicine; Visit Provider Nurse Practitioner
DX: K30 Functional dyspepsia (principal); K59.04 Chronic idiopathic constipation; K21.9 Gastro-esophageal reflux disease without esophagitis; D12.6 Benign neoplasm of colon, unspecified
CPT/HCPCS: 99214

== ENCOUNTER → 2023-01-28 13:58 | Outpatient (BNVA) | payer MEDICARE, OTHER, SELFPAY | PROVIDERS: PCP Family Medicine; Visit Provider Nurse Practitioner | DX: K30 Functional dyspepsia (principal); R14.0 Abdominal distension (gaseous); K21.9 Gastro-esophageal reflux disease without esophagitis; D12.6 Benign neoplasm of colon, unspecified | CPT/HCPCS: 99212 ==

== ENCOUNTER 2023-02-04 14:52 | Outpatient (AMB) | payer MEDICARE, SELFPAY ==
[2023-02-04 14:59] VITALS: BP 108/80; PULSE 40; O2SAT 96; BMI 37.1
--- NOTE | 2023-02-04 14:59 | MHC.OFFVIS ---
Intake Vital Signs 02/04/23 14:59 Height 5 ft 2 in Weight 202 lb 13.204 oz BMI 37.1 BP 108/80 Pulse 40 L Pulse Oximetry (%) 96 Intake Visit Reasons: guadalupe Intake Note: pt states she tries to use cpap every night. she denies cough and wheezing. Allergies peanut Allergy (Severe, Verified 02/04/23 15:33) angioedema lisinopril [LISINOPRIL] Allergy (Intermediate, Verified 02/04/23 15:33) RASH, cough zoster vaccine live [SHINGLES VACCINE] Allergy (Intermediate, Verified 02/04/23 15:33) LOCALIZED REDNESS, SWELLING, FEVER,COUGH latex [LATEX] Allergy (Unknown, Verified 02/04/23 15:33) RASH pineapple [PINEAPPLE] Allergy (Unknown, Verified 02/04/23 15:33) RASH strawberry [STRAWBERRY] Allergy (Unknown, Verified 02/04/23 15:33) RASH adhesive Allergy (Verified 02/04/23 15:33) Blister Medication List - Last Reconciled 02/04/23 by Gilda Webber MD albuterol sulfate 90 mcg/actuation (ProAir HFA) 2 puffs PO Q4H aspirin 81 mg PO DAILY atorvastatin 80 mg PO BEDTIME clopidogrel 75 mg PO DAILY fluticasone propionate 50 mcg/actuation sprays intranasal hydrocortisone 1% [place] isosorbide mononitrate ER 30 mg PO DAILY lidocaine 5% 1 appl topical PRN loratadine 10 mg PO BEDTIME metoclopramide HCl (Reglan) 5 mg PO QIDACHS metoprolol succinate ER 100 mg (2 x 50 mg) PO QAM montelukast 10 mg PO BEDTIME nitroglycerin 0.4 mg sublingual Q5M PRN pantoprazole 40 mg PO QAM peg 3350-electrolytes 236-22.74-6.74 -5.86 gram (Golytely) 240 mL PO Q10M 1 day pregabalin (Lyrica) 50 mg PO BID simethicone 180 mg PO QID 30 days tiotropium bromide 1.25 mcg/actuation (Spiriva Respimat) 2 puffs inhalation DAILY Do you need a note to return to daycare/school/sports/work: No HPI guadalupe HPI Details Araseli is 68 years old very pleasant lady case of obstructive sleep apnea. She was very compliant using the CPAP but lately since we changed her mask to fullface, she is not using for enough hours. Complains that during the night her mask feels too tight and she tends to pull it off after a few hours of use it. Some of the nights she has not just not been putting it on. She wants to go back to nasal pillows. Breathing has been okay no cough or wheezing. [facility] Medical History Cataract GUADALUPE (obstructive sleep apnea) Obesity (BMI 30-39.9) Hemorrhoids with complication Family history of ovarian cancer GUADALUPE (obstructive sleep apnea) Hemorrhoids with complication NSVT (nonsustained ventricular tachycardia) PVC (premature ventricular contraction) Surgical History History of coronary artery stent placement History of esophagogastroduodenoscopy (EGD) Hx of colonoscopy History of shoulder surgery (~04/29/18) History of lumbar laminectomy Family History Father Cardiovascular disease Mother Osteoarthritis Family/Other Ovarian cancer, Onset Age: 30 Social History Household Members: Spouse Alcohol intake: never Patient Tobacco Use Status: Never used Tobacco service: No Current occupational status: unemployed Current occupation: rt handed Review of Systems Const All systems reviewed & are unremarkable except as noted in HPI and below Eyes Reports no additional complaints ENT Reports nasal congestion (Mild to moderate off and on) Card Denies chest pain, Denies irregular heart rhythm and Denies leg edema Resp Reports cough (Mild off and on) and Denies wheezing GI Reports no additional complaints Reports no additional complaints Musc Reports no additional complaints Skin/Breast Reports system reviewed and no additional complaints, except as documented Neuro Reports no additional complaints Psych Reports no additional complaints Endo Reports no additional complaints Aller/Immun Denies wheezing Physical Exam Vital Signs: Last Vital Signs Pulse 40 L 02/04/23 14:59 BP 108/80 02/04/23 14:59 Pulse Ox 96 02/04/23 14:59 BMI result Body Mass Index 37.1 Const General: comfortable, no acute distress, alert and awake Orientation/consciousness: patient oriented x3 HEENT Head: Yes normal to inspection General nose exam: No nasal polyps present and No nasal discharge present Face and sinus: Yes sinuses nontender Mouth: oropharynx abnormals (Somewhat crowded and narrow, Mallampati class 3) Throat: Yes posterior oropharynx normal Eyes General: appearance normal, both eyes and all related structures Neck Neck: Yes normal visual inspection, Yes no lymphadenopathy, Yes trachea midline, Yes no JVD and Yes other (Neck circumference 15 in) Thyroid: Thyroid normal Chest Chest palpation & inspection: normal inspection of the chest, normal palpation of entire chest wall and no tenderness Resp Effort & Inspection: normal respiratory effort Auscultation: clear to auscultation bilaterally, no crackles and no wheezes Cardio Palpation: normal PMI Rate: regular rate Rhythm: regular rhythm Heart sounds: no gallops and no murmurs GI Palpation (GI): Soft to palpation, nontender, No hepatosplenomegaly present and no masses Auscultation: normal bowel sounds Back/Spine/Pelvis Thoracic/Lumbar Spine: thoracic and lumbar spine normal to inspection Skin General skin exam: no rashes or lesions noted Neuro General: patient oriented x3 and no focal motor deficits Cranial nerves: Yes CN's II-XII intact bilaterally Extrem General: Yes normal to inspection, Yes no clubbing, cyanosis or edema and Yes no calf tenderness Psych Appearance: grossly normal and well kempt Speech and movement: Normal speech and movement present Results Reviewed Results Reviewed: Compliance report is reviewed. She has used 19/30 nights, 63%. Average usage per night 2 hours 39 minutes, most of the nights is below 4 hours. Ninety-fifth percentile pressure 11.8. There is not much air leak. Residual AHI 0.8 Assessment & Plan Assessment & Plan (1) Obesity (BMI 30-39.9): Comment: THIS PATIENT IS MODERATELY OBESE WITH A ROUND FACE, AGAIN DISCUSSED AND ENCOURAGED TO LOSE WEIGHT AT LEAST BY 10-15 LBs IT IS DIFFICULT FOR HER BECAUSE SHE CANNOT DO ANY EXERCISE. Code(s): E66.9 - Obesity, unspecified (2) GUADALUPE (obstructive sleep apnea): Comment: CONFIRMED CASE OF OBSTRUCTIVE SLEEP APNEA, HAS BEEN STARTED ON CPAP THERAPY. INITIALLY SHE WAS VERY COMPLIANT USING 100% OF THE NIGHTS. THIS TIME SHE COMES WITH SUBOPTIMAL COMPLIANCE NOT USING IT EVERY NIGHT. SHE CLAIMS THAT THE FULLFACE MASK BECOMES UNCOMFORTABLE, AND SHE WILL LIKE TO TRY A NASAL PILLOWS, WHICH I WILL BE ORDERING. I DISCUSSED WITH HER AT LENGTH AND STRESSED THE IMPORTANCE OF USING IT EVERY NIGHT AND MORE THAN 4 HOURS PER NIGHT. SHE UNDERSTANDS. AND IS AGREEABLE WILL RECHECK HER AFTER 3 MONTHS. Code(s): G47.33 - Obstructive sleep apnea (adult) (pediatric) Coding Level of Care Code Est Pt Level 3 (59532) Diagnoses Obesity (BMI 30-39.9) E66.9 GUADALUPE (obstructive sleep apnea) G47.33
== END 2023-02-04 15:33 | disposition home or self-care (01) ==
PROVIDERS: PCP Family Medicine; Visit Provider Internal Medicine
DX: E66.9 Obesity, unspecified (principal); G47.33 Obstructive sleep apnea (adult) (pediatric)
CPT/HCPCS: 99213

== ENCOUNTER → 2023-02-04 14:52 | Outpatient (BNVA) | payer MEDICARE, SELFPAY | PROVIDERS: PCP Family Medicine; Visit Provider Internal Medicine | DX: G47.33 Obstructive sleep apnea (adult) (pediatric) (principal); E66.9 Obesity, unspecified; Z68.37 Body mass index [BMI] 37.0-37.9, adult | CPT/HCPCS: 99212 ==

== ENCOUNTER 2023-02-05 14:14 | Outpatient (REF) | payer MEDICARE, SELFPAY ==
--- NOTE | ~2023-02-05 | MM_ITS ---
EXAMINATION: BONE DENSITOMETRY CLINICAL INDICATION: Postmenopausal. Osteoporosis. COMPARISON: Previous BD dated 07/23/2011 and baseline BD dated 05/11/2009. TECHNIQUE: Using a [employer] DXA System (software version: 13.1) manufactured by [employer], dual-energy x-ray absorptiometry was performed of the lumbar spine and left hip. The images are of good technical quality. Summary results are attached. FINDINGS: LEFT FEMUR, NECK: Current: BMD 0.773 g/cm2, Z-score -0.9, T-score -1.9, osteopenia. Prior: BMD 0.938 g/cm2. Baseline: BMD 0.925 g/cm2. LEFT FEMUR, TOTAL: Current: BMD 0.792 g/cm2, Z-score -1.0, T-score -1.7, osteopenia, 19.3% decrease from previous, 21.9% decrease from baseline (<5% change is not significant). Prior: BMD 0.981 g/cm2. Baseline: BMD 1.014 g/cm2. AP SPINE L1-L2 (excluding L3 and L4): The data of L1-L4 has been changed to exclude the L3 and L4 vertebral bodies, because degenerative sclerosis at these levels may cause overestimation of lumbar spine density. Current: BMD 1.102 g/cm2, Z-score 0.2, T-score -0.5, normal, 7.7% increase from previous, 2.9% decrease from baseline (<5% change is not significant). Prior: BMD 1.023 g/cm2. Baseline: BMD 1.135 g/cm2. IDENTIFIED RISK FACTORS: History of fracture (adult), menopause, recurrent falls. HISTORY OF FRACTURE: Shoulder. MEDICATIONS: None listed. MM/XR DEXA axial skeleton IMPRESSION: 1. DIAGNOSIS: Osteopenia based on the lowest T-score value of -1.9 in the femoral neck applying World Health Organization criteria. 2. 10-YEAR FRACTURE RISK PREDICTION, FRAX: Major osteoporotic fracture (clinical spine, forearm, hip or shoulder) 9.3%. Hip fracture 1.3%. 3. Treatment Recommendations: NOF guidelines recommend consideration for treatment in postmenopausal women and men age 50 and older presenting with the following: -A hip or vertebral (clinical or morphometric) fracture. -T-score less than or equal to -2.5 at the femoral neck or spine after appropriate evaluation to exclude secondary causes. -Low bone mass at the hip or spine and a 10-year fracture probability by FRAX of greater than or equal to 3% for hip fracture or greater than or equal to 20% for major osteoporotic fracture based on the [place] adapted WHO algorithm. 4. Other Recommendations: All treatment decisions require clinical judgment and consideration of individual patient factors, including patient preferences, comorbidities, previous drug use, risk factors not captured in the FRAX model (e.g. frailty, falls, vitamin D deficiency, increased bone turnover, interval significant decline in bone density) and possible under or overestimation of fracture risk by FRAX. Additional medical evaluation for secondary cause of low bone mineral density may be appropriate. FUTURE SCAN RECOMMENDATION: People with diagnosed cases of osteoporosis or at high risk for fracture should have regular bone mineral density tests. For patients eligible for Medicare, routine testing is allowed once every 2 years. The testing frequency can be increased to one year for patients who have rapidly progressing disease, those who are receiving or discontinuing medical therapy to restore bone mass, or have additional risk factors.
--- NOTE | ~2023-02-05 | MM_ITS ---
EXAMINATION: MM SCREENING DIGITAL BREAST TOMOSYNTHESIS, BILATERAL CLINICAL INFORMATION: Screening. Asymptomatic. COMPARISON: Mammography: This study is compared with prior exams dating back to 2018. TECHNIQUE: Digital breast tomosynthesis is performed in both the craniocaudal and mediolateral oblique views along with computer-aided detection (CAD). Synthesized 2D images are generated from the tomosynthesis. FINDINGS: There are scattered areas of fibroglandular density (ACR BI-RADS breast composition Category b). There are no significant masses, abnormal calcifications, or other abnormalities. There are benign secretory calcifications in the superior aspect of the left breast. MM/MM tomosynthesis screening BI IMPRESSION: No mammographic evidence of malignancy. ASSESSMENT: BI-RADS BI-RADS 2 - Benign Findings RECOMMENDATION: Routine annual mammography screening. 1 year F/U This examination should not preclude the clinical evaluation of a suspicious palpable abnormality. This patient's information was entered into a reminder system with a target due date for their next mammogram.
== END 2023-02-05 14:15 | disposition home or self-care (01) ==
LOC: HO.MAMMO 14:14
PROVIDERS: PCP Family Medicine; Visit Provider Family Medicine
DX: Z12.31 Encounter for screening mammogram for malignant neoplasm of breast (principal); Z13.820 Encounter for screening for osteoporosis; Z78.0 Asymptomatic menopausal state
CPT/HCPCS: 77063; 77067; 77080

== ENCOUNTER → 2023-02-05 15:00 | Outpatient (BNV) | payer MEDICARE, SELFPAY | PROVIDERS: PCP Family Medicine; Visit Provider Radiology Diagnostic Radiology | DX: Z12.31 Encounter for screening mammogram for malignant neoplasm of breast (principal) | CPT/HCPCS: 77063; 77067 ==

== ENCOUNTER 2023-03-06 14:07 | Emergency (ER) | payer MEDICARE, MEDICAID, SELFPAY ==
--- NOTE | ~2023-03-06 | XR_ITS ---
EXAMINATION: XR CHEST CLINICAL INFORMATION: Cough, fever COMPARISON: 09/18/2021. TECHNIQUE: 2 views of the chest were obtained. FINDINGS: No significant abnormality is noted involving the heart, lungs, mediastinum, bony thorax or soft tissues. No pneumothorax or pleural effusion seen. Pulmonary vascularity appears to be stable. XR/XR chest 2V IMPRESSION: No evidence for acute process.
[2023-03-06 14:12] VITALS: BP 129/79; PULSE 64; RESP 18; TEMP 37; O2SAT 95; BMI 35.1
--- NOTE | 2023-03-06 14:12 | ED.GENADULT ---
HPI - General Adult General Chief complaint: Upper Respiratory Symptoms Stated complaint: fever/ asthma Time Seen by Provider: 03/06/23 14:28 Source: patient and RN notes reviewed Mode of arrival: ambulatory Limitations: no limitations History of Present Illness HPI narrative: This is a 68-year-old female, with a past medical history of NSTEMI, PVCs, presenting to the emergency department complaints of headache, subjective fevers and chills, sore throat, bilateral ear pain, congestion, cough x 4 days. Patient states that her was sick the last 2 weeks with a similar illness. He tested negative for COVID. She has been using her inhalers without any relief. She denies any chest pain, shortness of breath, abdominal pain, nausea, vomiting or diarrhea. No urinary symptoms. No other complaints or concerns at this time. MD complaint: Cough Onset (ago): day(s) Radiation: non-radiation Severity: mild Relieving factors: none Exacerbating factors: none Treatments prior to arrival: none Related Data Home Medications Medication Instructions Recorded Confirmed aspirin 81 mg tablet,delayed 81 mg PO DAILY 02/09/20 02/04/23 release loratadine 10 mg tablet 10 mg PO BEDTIME 02/09/20 02/04/23 montelukast 10 mg tablet 10 mg PO BEDTIME 02/09/20 02/04/23 pregabalin 50 mg capsule (Lyrica) 50 mg PO BID 02/09/20 02/04/23 albuterol sulfate 90 mcg/actuation 2 puff PO Q4H 09/26/21 02/04/23 aerosol inhaler (ProAir HFA) clopidogrel 75 mg tablet 75 mg PO DAILY 09/26/21 02/04/23 hydrocortisone 1 % topical cream OR 10/20/22 02/04/23 with perineal applicator lidocaine 5 % topical ointment 1 appl topical PRN 10/20/22 02/04/23 fluticasone propionate 50 spray intranasal 11/03/22 02/04/23 mcg/actuation nasal spray,suspension tiotropium bromide 1.25 2 puff inhalation DAILY 11/19/22 02/04/23 mcg/actuation mist for inhalation (Spiriva Respimat) Previous Rx's Medication Instructions Recorded atorvastatin 80 mg tablet 80 mg PO BEDTIME #30 tabs 09/19/21 metoprolol succinate 50 mg 100 mg (2 x 50 mg) PO QAM #60 tabs 10/17/21 tablet,extended release 24 hr isosorbide mononitrate 30 mg 30 mg PO DAILY #90 tabs 11/19/22 tablet,extended release 24 hr nitroglycerin 0.4 mg sublingual 0.4 mg sublingual Q5M PRN chest 11/19/22 tablet pain #30 tabs metoclopramide HCl 5 mg tablet 5 mg PO QIDACHS #120 tabs 01/28/23 (Reglan) pantoprazole 40 mg tablet,delayed 40 mg PO QAM #30 tabs 01/28/23 release peg 3350-electrolytes 236 240 ml PO Q10M 1 day #4,000 mL 01/28/23 gram-22.74 gram-6.74 gram-5.86 gram solution (Golytely) simethicone 180 mg capsule 180 mg PO QID 30 days #120 caps 01/28/23 acetaminophen 500 mg tablet 500 mg PO Q6H PRN pain or fever 03/06/23 (Tylenol Extra Strength) #30 tabs benzonatate 200 mg capsule 200 mg PO TID PRN cough 5 days #15 03/06/23 caps Allergies Allergy/AdvReac Type Severity Reaction Status Date / Time peanut Allergy Severe angioedema Verified 02/04/23 15:33 lisinopril [LISINOPRIL] Allergy Intermediate RASH, cough Verified 02/04/23 15:33 zoster vaccine live Allergy Intermediate LOCALIZED Verified 02/04/23 15:33 [SHINGLES VACCINE] REDNESS, SWELLING, FEVER,COUGH latex [LATEX] Allergy Unknown RASH Verified 02/04/23 15:33 pineapple [PINEAPPLE] Allergy Unknown RASH Verified 02/04/23 15:33 strawberry [STRAWBERRY] Allergy Unknown RASH Verified 02/04/23 15:33 adhesive Allergy Blister Verified 02/04/23 15:33 Review of Systems Review of Systems: Yes all other systems are reviewed and are negative Constitutional: Constitutional: Reports as per [facility] Past Medical History Attestation statement: The following information was validated with the patient. Medical History Cataract GUADALUPE (obstructive sleep apnea) Obesity (BMI 30-39.9) Hemorrhoids with complication Family history of ovarian cancer GUADALUPE (obstructive sleep apnea) Hemorrhoids with complication NSVT (nonsustained ventricular tachycardia) PVC (premature ventricular contraction) Surgical History History of coronary artery stent placement History of esophagogastroduodenoscopy (EGD) Hx of colonoscopy History of shoulder surgery (~04/29/18) History of lumbar laminectomy Family History Family History Father Cardiovascular disease Mother Osteoarthritis Family/Other Ovarian cancer, Onset Age: 30 Social History Household Members: Spouse Alcohol intake: never Patient Tobacco Use Status: Never used Tobacco Advance Directives: No Advance Directives Information Provided: Yes service: No Current occupational status: unemployed Current occupation: rt handed Physical Exam ED Vital Signs: Vital Signs - 24 hr 03/06/23 14:12 Temperature 98.6 F Pulse Rate 64 Respiratory Rate 18 Blood Pressure 129/79 Pulse Oximetry 95 Oxygen Delivery Method Room Air BMI result Body Mass Index 35.1 Const General: cooperative, comfortable and no acute distress Orientation/consciousness: patient oriented x3 Limitations: no limitations HENMT Head: Yes normal to inspection, Yes normocephalic and Yes atraumatic Ears: hearing grossly normal bilaterally General nose exam: Normal external nose present Face and sinus: Yes normal facial exam Mouth: Normal oral and palatal mucosa present, oropharynx normal and moist mucous membranes Throat: Yes posterior oropharynx normal Eyes General: appearance normal, both eyes and all related structures Eyelids: Yes eyelids normal Conjunctivae: conjunctivae normal Sclerae: sclerae normal Pupils: Equal, round and reactive pupils present EOM: EOMs intact bilaterally Neck Neck: Yes normal visual inspection, Yes full ROM and Yes no lymphadenopathy Lymphatic: no lymphadenopathy noted Chest Chest palpation & inspection: normal inspection of the chest Resp Effort & Inspection: normal respiratory effort and able to speak in complete sentences Auscultation: clear to auscultation bilaterally, no crackles, no rales, no rhonchi and no wheezes Cardio Rate: regular rate Rhythm: regular rhythm Heart sounds: S1 normal heart sound present and S2 normal heart sound present GI Inspection: Yes normal to inspection Skin General skin exam: no rashes or lesions noted Trauma: no lacerations or abrasions Wounds: no wounds Neuro General: patient oriented x3 and moves all extremities Cranial nerves: Yes Equal, round and reactive pupils present Extrem General: Yes normal to inspection Right upper extremity: normal to inspection Left upper extremity: normal to inspection Right lower extremity: normal to inspection Left lower extremity: normal to inspection Course Course Course Narrative: This is a rapid medical exam: Additional HPI, ROS, PE not included below will be deferred to primary provider. Patient is a 68-year-old female with history of asthma presenting to the emergency department with complaint of cough, shortness of breath, congestion, and right ear pain since Thursday. Also complains of fever. States was sick with similar symptoms but is feeling better. Plan: swab for flu/covid/rsv, cxr Medical Decision Making Medical Decision Making [facility] Narrative: This is a 68-year-old female presenting to the emergency department with complaints of cough, fevers, ear pain, head congestion. On arrival, vital signs within normal limits. Patient is nontoxic appearing, lungs are clear to auscultation bilaterally. She is under no acute respiratory distress. She has no chest pain or shortness of breath. Viral swabs were obtained, patient is positive for COVID. Her symptoms are consistent COVID illness. Chest x-ray was obtained revealing no pneumonia or consolidation. Educated patient on COVID and given strict return precautions. Will treat conservatively with ibuprofen and Tylenol and Tessalon, advised to follow-up with primary care physician and to return if she develops any shortness of breath or chest pain. Patient understands and agrees with plan. Patient stable for discharge. Differential Diagnosis Differential Diagnoses: The differential diagnosis associated with the presentation includes COVID, bronchitis, influenza, pneumonia Lab Data [facility] Lab Attestation statement: I reviewed the patient's lab results. COVID positive Labs: Lab Results 03/06/23 Range/Units 14:17 Influenza Type A (PCR) NEGATIVE (Negative) Influenza Type B (PCR) NEGATIVE (Negative) RSV RNA Qual (PCR) NEGATIVE (Negative) SARS-CoV-2 RNA (RT-PCR) POSITIVE A (Negative) Radiology Impression Discussion of test interpretation with radiology: I have reviewed the radiologist's reading. Radiologist Impression: EXAMINATION: XR CHEST CLINICAL INFORMATION: Cough, fever COMPARISON: 09/18/2021. TECHNIQUE: 2 views of the chest were obtained. FINDINGS: No significant abnormality is noted involving the heart, lungs, mediastinum, bony thorax or soft tissues. No pneumothorax or pleural effusion seen. Pulmonary vascularity appears to be stable. XR/XR chest 2V IMPRESSION: No evidence for acute process. Dictated By: [place] Miramontes Discharge Plan Discharge Clinical Impression: COVID-19 Patient Disposition: Home, Self-Care Additional Instructions: You tested positive for COVID today. Please isolate the next 5 days. If you are around others, please wear mask. On day 5, you may discontinue your isolation and going to the public if your afebrile without Tylenol or Motrin and asymptomatic. Please rest, drink plenty of fluids, and take Tylenol for pain and fevers. Take Tessalon as needed for cough. Continue using albuterol inhaler. Call your doctor on Thursday for follow-up. If any new or worsening symptoms occur including but not limited to chest pain or shortness breath, please return for re-evaluation. Prescriptions: New acetaminophen [Tylenol Extra Strength] 500 mg tablet 500 mg PO Q6H PRN (Reason: pain or fever) Qty: 30 0RF benzonatate 200 mg capsule 200 mg PO TID PRN (Reason: cough) 5 Days Qty: 15 0RF No Action metoprolol succinate 50 mg tablet extended release 24 hr 100 mg PO QAM Qty: 60 3RF atorvastatin 80 mg tablet 80 mg PO BEDTIME Qty: 30 0RF aspirin 81 mg tablet,delayed release (DR/EC) 81 mg PO DAILY loratadine 10 mg tablet 10 mg PO BEDTIME pregabalin [Lyrica] 50 mg capsule 50 mg PO BID montelukast 10 mg tablet 10 mg PO BEDTIME clopidogrel 75 mg tablet 75 mg PO DAILY albuterol sulfate [ProAir HFA] 90 mcg/actuation HFA aerosol inhaler 2 puff PO Q4H isosorbide mononitrate 30 mg tablet extended release 24 hr 30 mg PO DAILY Qty: 90 3RF nitroglycerin 0.4 mg tablet, sublingual 0.4 mg sublingual Q5M PRN (Reason: chest pain) Qty: 30 5RF Rx Instructions: do not exceed 3 doses per episode metoclopramide HCl [Reglan] 5 mg tablet 5 mg PO QIDACHS Qty: 120 6RF pantoprazole 40 mg tablet,delayed release (DR/EC) 40 mg PO QAM Qty: 30 6RF simethicone 180 mg capsule 180 mg PO QID 30 Days Qty: 120 6RF Rx Instructions: after meals peg 3350-electrolytes [Golytely] 236-22.74-6.74 -5.86 gram recon soln 240 ml PO Q10M 1 Days Qty: 4000 0RF Rx Instructions: until fecal effluent is clear; do not exceed a total volume of 2,000 mL fluticasone propionate 50 mcg/actuation spray,suspension intranasal lidocaine 5 % ointment 1 appl topical PRN hydrocortisone 1 % cream with perineal applicator OR Spiriva Respimat 1.25 mcg/actuation mist 2 puff inhalation DAILY
[2023-03-06 15:29] LABS: Influenza A PCR NEGATIVE (Negative); Influenza B PCR NEGATIVE (Negative); Resp Syncy Virus RNA Qual PCR NEGATIVE (Negative); SARS COV2 PCR INHOUSE POSITIVE (Negative)
[2023-03-06 16:38] VITALS: BP 132/78; PULSE 66; RESP 20; TEMP 37.1; O2SAT 97
== END 2023-03-06 18:03 | disposition home or self-care (01) ==
PROVIDERS: Registered Nurse Emergency; Emergency Provider Emergency Medicine; PCP Family Medicine
DX: U07.1 COVID-19 (principal); J02.9 Acute pharyngitis, unspecified; R50.9 Fever, unspecified; R51.9 Headache, unspecified; H92.03 Otalgia, bilateral; R05.9 Cough, unspecified; Z79.899 Other long term (current) drug therapy
CPT/HCPCS: 0241U; 71046; 99282; 99283

== ENCOUNTER 2023-03-26 14:33 | Outpatient (AMB) | payer MEDICARE, MEDICAID, SELFPAY ==
[2023-03-26 14:42] VITALS: BP 120/60; PULSE 74; BMI 35.2
--- NOTE | 2023-03-26 14:42 | A.OFFVIS_ITS ---
Intake Vital Signs 03/26/23 14:42 Height 5 ft 3 in Weight 198 lb 13.711 oz BMI 35.2 BP 120/60 Blood Pressure Location Lt brachial Position Sitting Pulse 74 Pulse Source Pulse Oximeter Intake Visit Reasons: 3 month follow up Intake Note: 3 mnth f/up pt had covid on february pt got covid then the palpitations were strong that she had to take glycerine for the palpitations Chicken Stuffer Required: No Accompanied by: Grand Child Allergies peanut Allergy (Severe, Verified 02/04/23 15:33) angioedema lisinopril [LISINOPRIL] Allergy (Intermediate, Verified 02/04/23 15:33) RASH, cough zoster vaccine live [SHINGLES VACCINE] Allergy (Intermediate, Verified 02/04/23 15:33) LOCALIZED REDNESS, SWELLING, FEVER,COUGH latex [LATEX] Allergy (Unknown, Verified 02/04/23 15:33) RASH pineapple [PINEAPPLE] Allergy (Unknown, Verified 02/04/23 15:33) RASH strawberry [STRAWBERRY] Allergy (Unknown, Verified 02/04/23 15:33) RASH adhesive Allergy (Verified 02/04/23 15:33) Blister Medication List - Last Reconciled 03/26/23 by LORENZO KaurC acetaminophen (Tylenol Extra Strength) 500 mg PO Q6H PRN albuterol sulfate 90 mcg/actuation (ProAir HFA) 2 puffs PO Q4H aspirin 81 mg PO DAILY atorvastatin 80 mg PO BEDTIME benzonatate 200 mg PO TID PRN 5 days clopidogrel 75 mg PO DAILY fluticasone propionate 50 mcg/actuation sprays intranasal hydrocortisone 1% MA isosorbide mononitrate ER 30 mg PO DAILY lidocaine 5% 1 appl topical PRN loratadine 10 mg PO BEDTIME metoclopramide HCl (Reglan) 5 mg PO QIDACHS metoprolol succinate ER 100 mg (2 x 50 mg) PO QAM montelukast 10 mg PO BEDTIME nitroglycerin 0.4 mg sublingual Q5M PRN pantoprazole 40 mg PO QAM peg 3350-electrolytes 236-22.74-6.74 -5.86 gram (Golytely) 240 mL PO Q10M 1 day pregabalin (Lyrica) 50 mg PO BID simethicone 180 mg PO QID 30 days tiotropium bromide 1.25 mcg/actuation (Spiriva Respimat) 2 puffs inhalation DAILY HPI 3 month follow up HPI Details Araseli is a 68-year-old female with past medical history obesity, hyperlipidemia, PVCs, coronary artery disease, NSTEMI with occluded RCA then RCA stent who recently reported chest discomfort and underwent a cardiac catheterization receiving stent to the LAD. She now presents for follow-up. Today she reports she has been getting some discomfort in her mid chest. It can happen randomly and with activity. She will take a nitroglycerin and lay down to rest. Discomfort will gradually resolve within 30 minutes. No shortness of breath, palpitations, presyncope, syncope, PND, orthopnea or edema. She has been doing light physical activity. She did not follow through with cardiac rehab as the schedule did not match her ability to get rides. She has been doing light exercise at home. Daughter is present. [facility] Medical History Cataract GUADALUPE (obstructive sleep apnea) Obesity (BMI 30-39.9) Hemorrhoids with complication Family history of ovarian cancer GUADALUPE (obstructive sleep apnea) Hemorrhoids with complication NSVT (nonsustained ventricular tachycardia) PVC (premature ventricular contraction) Surgical History History of coronary artery stent placement History of esophagogastroduodenoscopy (EGD) Hx of colonoscopy History of shoulder surgery (~04/29/18) History of lumbar laminectomy Family History Father Cardiovascular disease Mother Osteoarthritis Family/Other Ovarian cancer, Onset Age: 30 Social History Household Members: Spouse Alcohol intake: never Patient Tobacco Use Status: Never used Tobacco service: No Current occupational status: unemployed Current occupation: rt handed Review of Systems Const Denies chills, Denies fatigue, Denies fever(s), Denies frequent falls, Denies weakness, Denies weight gain and Denies weight loss ENT Denies dizziness Card Reports chest pain (Random occurrence sharp pain in her chest), Denies leg edema, Denies lightheadedness, Denies palpitations, Denies dyspnea and Denies dyspnea on exertion Resp Denies cough, Denies dyspnea and Denies dyspnea on exertion GI Denies hematochezia Musc Denies abnormal gait, Denies muscle weakness, Denies numbness, Denies radiating pain into limb and Denies tingling Neuro Denies abnormal gait, Denies dizziness, Denies frequent falls, Denies numbness, Denies tingling and Denies weakness Endo Denies fatigue and Denies palpitations Physical Exam Vital Signs: Last Vital Signs Pulse 74 03/26/23 14:42 BP 120/60 03/26/23 14:42 BMI result Body Mass Index 35.2 Const General: cooperative, healthy appearing, comfortable and no acute distress Orientation/consciousness: patient oriented x3 Neck Neck: Yes normal visual inspection Resp Effort & Inspection: normal respiratory effort Auscultation: clear to auscultation bilaterally, no crackles, no rales, no rhonchi and no wheezes Cardio Jugular venous distension: no JVD Rate: regular rate Rhythm: regular rhythm Heart sounds: S1 normal heart sound present, S2 normal heart sound present, no murmurs and no rubs Neuro General: patient oriented x3 Extrem General: Yes normal to inspection Psych Appearance: grossly normal Mental Status: mental status grossly normal Speech and movement: Normal speech and movement present Assessment & Plan Assessment & Plan (1) Atherosclerotic cardiovascular disease: Code(s): I25.10 - Atherosclerotic heart disease of [place] coronary artery without angina pectoris Plan: History of NSTEMI, 09/2021. Cardiac catheterization at that time showed occluded RCA, stents placed. Cardiac risks of obesity and hyperlipidemia. She recently reported chest discomfort and underwent diagnostic cardiac catheterization on 12/25/2022 showing proximal LAD 85% stenosis, MOOK placed. She does have residual 1st OM and proximal left circumflex stenosis. RCA stents were patent. Last echocardiogram 07/21/2022 showed EF 50-55%, mild LVH, mild MR, basal inferior akinetic, no significant change from 09/2021. On last visit she reported that her prior chest discomfort has resolved. Today she is reporting a random sharp pain in the mid chest that can last up to a half an hour. She does take nitroglycerin in lays down with gradual improvement in her symptom. This is different from her prior angina. It does not respond quickly to nitroglycerin so I am unclear if this is angina or atypical pain. Will increase her isosorbide up to 60 mg daily. Instructed to call if her symptom persists on this dose. Continue aspirin indefinitely. Plavix 75 mg daily uninterrupted for at least 1 year. Continue high-dose atorvastatin with ideal LDL goal less than 70. Labs done 11/05/2022 showed LDL 56. Continue metoprolol. Signs and symptoms of angina discussed. Emergency care if ever needed for symptoms. Cardiology follow-up in 3 months, sooner if needed. (2) S/P cardiac catheterization: Comment: 12/25/2022, left main normal, proximal LAD 85% stenosis, stent placed, 1st OM 80% stenosis, proximal circumflex 50% stenosis, RCA stents patent Code(s): Z98.890 - Other specified postprocedural states Plan: Right radial catheterization site well healed (3) History of cardiac cath: Comment: 09/21/2021 the left main normal, lad proximal 70% stenosis, 1st diagonal 50% stenosis, left circumflex proximal 60% stenosis, RCA mid 100% stenosis, 2 MOOK placed Code(s): Z98.890 - Other specified postprocedural states (4) Precordial chest pain: Code(s): R07.2 - Precordial pain Plan: As above Plan Time spent with chart review, documentation, interview assessment Medications: New isosorbide mononitrate ER 60 mg PO DAILY 30 tabs 5RF Discontinued isosorbide mononitrate ER Discontinued Reason: Doctor's Order 30 mg PO DAILY 90 tabs 3RF Coding Level of Care Code Est Pt Level 4 (79904) Diagnoses Atherosclerotic cardiovascular disease I25.10 S/P cardiac catheterization Z98.890 History of cardiac cath Z98.890 Precordial chest pain R07.2 Time Spent (min) 28
== END 2023-03-26 15:11 | disposition home or self-care (01) ==
PROVIDERS: PCP Family Medicine; Visit Provider Nurse Practitioner Family
DX: I25.10 Atherosclerotic heart disease of native coronary artery without angina pectoris (principal); Z98.890 Other specified postprocedural states; R07.2 Precordial pain
CPT/HCPCS: 99214

== ENCOUNTER → 2023-03-26 14:33 | Outpatient (BNVA) | payer MEDICARE, OTHER, SELFPAY | PROVIDERS: PCP Family Medicine; Visit Provider Nurse Practitioner Family | DX: I25.10 Atherosclerotic heart disease of native coronary artery without angina pectoris (principal); R07.2 Precordial pain; Z98.890 Other specified postprocedural states | CPT/HCPCS: 99212 ==

== ENCOUNTER 2023-05-20 14:52 | Outpatient (AMB) | payer MEDICARE, SELFPAY ==
--- NOTE | 2023-05-20 15:13 | MHC.OFFVIS ---
Intake Vital Signs 05/20/23 15:14 Height 5 ft 3 in Weight 199 lb BMI 35.2 BP 104/68 Blood Pressure Location Lt brachial Position Sitting Pulse 58 Pulse Source Pulse Oximeter Pulse Oximetry (%) 96 Oxygen Delivery Method Room Air Intake Visit Reasons: nikki Intake Note: pt is here for follow up of NIKKI, and states she is struggling with cpap mask and would like to try nasal pillows, pt fitted with N30I SW. Carbonation Equipment Tender Required: No Allergies peanut Allergy (Severe, Verified 05/20/23 15:33) angioedema lisinopril [LISINOPRIL] Allergy (Intermediate, Verified 05/20/23 15:33) RASH, cough zoster vaccine live [SHINGLES VACCINE] Allergy (Intermediate, Verified 05/20/23 15:33) LOCALIZED REDNESS, SWELLING, FEVER,COUGH latex [LATEX] Allergy (Unknown, Verified 05/20/23 15:33) RASH pineapple [PINEAPPLE] Allergy (Unknown, Verified 05/20/23 15:33) RASH strawberry [STRAWBERRY] Allergy (Unknown, Verified 05/20/23 15:33) RASH adhesive Allergy (Verified 05/20/23 15:33) Blister Medication List - Last Reconciled 05/20/23 by Gilda Webber MD acetaminophen (Tylenol Extra Strength) 500 mg PO Q6H PRN albuterol sulfate 90 mcg/actuation (ProAir HFA) 2 puffs PO Q4H aspirin 81 mg PO DAILY atorvastatin 80 mg PO BEDTIME benzonatate 200 mg PO TID PRN 5 days budesonide-formoterol 160-4.5 mcg/actuation (Symbicort) 2 puffs inhalation BID clopidogrel 75 mg PO DAILY fluticasone propionate 50 mcg/actuation sprays intranasal hydrocortisone 1% [place] isosorbide mononitrate ER 60 mg PO DAILY lidocaine 5% 1 appl topical PRN loratadine 10 mg PO BEDTIME metoclopramide HCl (Reglan) 5 mg PO QIDACHS metoprolol succinate ER 100 mg (2 x 50 mg) PO QAM montelukast 10 mg PO BEDTIME nitroglycerin 0.4 mg sublingual Q5M PRN pantoprazole 40 mg PO QAM peg 3350-electrolytes 236-22.74-6.74 -5.86 gram (Golytely) 240 mL PO Q10M 1 day pregabalin (Lyrica) 50 mg PO BID simethicone 180 mg PO QID 30 days tiotropium bromide 1.25 mcg/actuation (Spiriva Respimat) 2 puffs inhalation DAILY Do you need a note to return to daycare/school/sports/work: No HPI nikki HPI Details THIS 68 YEARS OLD VERY PLEASANT FEMALE IS HERE FOR FOLLOW-UP FOR HER SLEEP APNEA WELL COPD. COPD IS STAYING VERY STABLE ON HER CURRENT REGIMEN. SHE DENIES ANY COUGH OR EXPECTORATION AND ALSO DENIES ANY WHEEZING. SHE SHE DOES GET SHORT OF BREATH WHEN SHE WALKS UP HILL OR CLIMBS STAIRS. SHE IS USING HER INHALERS REGULARLY. LUCKILY THERE HAS BEEN NO ACUTE EXACERBATION. FAR CPAP IS CONCERNED SHE HAS NOT USED MUCH SINCE LAST VISIT EXCEPT . FOR ONLY A FEW NIGHTS SHE WAS SENT LARGE SIZE FULLFACE MASK WHICH SHE DOES NOT LIKE. SHE WANTS TO TRY A NASAL PILLOWS FOR WHICH WE HAD SEND THE ORDER LAST TIME BUT ALL SHE GOT WAS ILL FULLFACE MASK. NOW SHE HAS HAD DIFFICULTY IN SLEEPING WAKING FREQUENTLY DURING THE NIGHT, AND HER HAS BEEN WAKING HER UP AFTER WITNESSING LONG RESPIRATORY PAUSES. [facility] Medical History (Updated 05/20/23 @ 15:47 by Gilda Webber MD) COPD (chronic obstructive pulmonary disease) Cataract NIKKI (obstructive sleep apnea) Obesity (BMI 30-39.9) Hemorrhoids with complication Family history of ovarian cancer NIKKI (obstructive sleep apnea) Hemorrhoids with complication NSVT (nonsustained ventricular tachycardia) PVC (premature ventricular contraction) Surgical History History of coronary artery stent placement History of esophagogastroduodenoscopy (EGD) Hx of colonoscopy History of shoulder surgery (~04/29/18) History of lumbar laminectomy Family History Father Cardiovascular disease Mother Osteoarthritis Family/Other Ovarian cancer, Onset Age: 30 Social History Household Members: Spouse Alcohol intake: never Patient Tobacco Use Status: Never used Tobacco service: No Current occupational status: unemployed Current occupation: rt handed Review of Systems Const All systems reviewed & are unremarkable except as noted in HPI and below Eyes Reports no additional complaints ENT Reports nasal congestion (Mild to moderate off and on) Card Denies chest pain, Denies irregular heart rhythm and Denies leg edema Resp Reports cough (Mild off and on) and Denies wheezing GI Reports no additional complaints Reports no additional complaints Musc Reports no additional complaints Skin/Breast Reports system reviewed and no additional complaints, except as documented Neuro Reports no additional complaints Psych Reports no additional complaints Endo Reports no additional complaints Aller/Immun Denies wheezing Physical Exam Vital Signs: Last Vital Signs Pulse 58 05/20/23 15:14 BP 104/68 05/20/23 15:14 Pulse Ox 96 05/20/23 15:14 Oxygen Delivery Method Room Air 05/20/23 15:14 BMI result Body Mass Index 35.2 Const General: comfortable, no acute distress, alert and awake Orientation/consciousness: patient oriented x3 HEENT Head: Yes normal to inspection General nose exam: No nasal polyps present and No nasal discharge present Face and sinus: Yes sinuses nontender Mouth: oropharynx abnormals (Somewhat crowded and narrow, Mallampati class 3) Throat: Yes posterior oropharynx normal Eyes General: appearance normal, both eyes and all related structures Neck Neck: Yes normal visual inspection, Yes no lymphadenopathy, Yes trachea midline, Yes no JVD and Yes other (Neck circumference 15 in) Thyroid: Thyroid normal Chest Chest palpation & inspection: normal inspection of the chest, normal palpation of entire chest wall and no tenderness Resp Effort & Inspection: normal respiratory effort Auscultation: clear to auscultation bilaterally, no crackles and no wheezes Cardio Palpation: normal PMI Rate: regular rate Rhythm: regular rhythm Heart sounds: no gallops and no murmurs GI Palpation (GI): Soft to palpation, nontender, No hepatosplenomegaly present and no masses Auscultation: normal bowel sounds Back/Spine/Pelvis Thoracic/Lumbar Spine: thoracic and lumbar spine normal to inspection Skin General skin exam: no rashes or lesions noted Neuro General: patient oriented x3 and no focal motor deficits Cranial nerves: Yes CN's II-XII intact bilaterally Extrem General: Yes normal to inspection, Yes no clubbing, cyanosis or edema and Yes no calf tenderness Psych Appearance: grossly normal and well kempt Speech and movement: Normal speech and movement present Results Reviewed Results Reviewed: THE COMPLIANCE REPORT FOR THE LAST 3 MONTHS IS REVIEWED. SHE HAD USED ONLY FOR A FEW NIGHTS IN THE BEGINNING BELINDA NON AFTER THAT. Assessment & Plan Assessment & Plan (1) NIKKI (obstructive sleep apnea): Comment: CONFIRMED CASE OF OBSTRUCTIVE SLEEP APNEA, DIAGNOSED IN 2022. INITIALLY SHE USED CPAP REGULARLY BUT THEN, , STAY USED ONLY ONCE IN A WHILE BLAMES IT ON THE MASK SHE DOES NOT LIKE THE FULLFACE MASK, AND WANTS TO TRY A NASAL PILLOWS. Code(s): G47.33 - Obstructive sleep apnea (adult) (pediatric) Plan: SHE WAS GIVEN NASAL PILLOWS RIGHT FROM THE OFFICE AND ADVISED TO TRY IT. HOPEFULLY SHE WILL LIKE IT AND SHE IS URGED TO USE CPAP EVERY NIGHT. I WILL CHECK HER BACK IN 2 MONTHS. (2) Obesity (BMI 30-39.9): Comment: THIS PATIENT IS MODERATELY OBESE WITH A ROUND FACE, Code(s): E66.9 - Obesity, unspecified Plan: AGAIN DISCUSSED AND ENCOURAGED TO LOSE WEIGHT AT LEAST BY 10-15 LBs IT IS DIFFICULT FOR HER BECAUSE SHE CANNOT DO ANY EXERCISE. (3) COPD (chronic obstructive pulmonary disease): Comment: THIS PATIENT IS ALSO A CASE OF CHRONIC OBSTRUCTIVE PULMONARY DISEASE, I CHECKED. AND IT WAS ACTUALLY RELATIVELY NORMAL SHE CONTINUES TO USE HER REGULAR REGIMEN. Code(s): J44.9 - Chronic obstructive pulmonary disease, unspecified Plan: REVIEWED HER RESPIRATORY REGIMEN WHICH IS FOLLOWS. SYMBICORT 160-4.52 PUFFS B.I.D.. SPIRIVA RESPIMAT 1.25 2 PUFFS DAILY. ALBUTEROL HFA 2 PUFFS Q 4-6 HOURS P.R.N.. * I THINK HER MEDICAL REGIMEN NEEDS TO BE DOWNGRADED. SHE CAN STOP USING THE SYMBICORT, AND STAY ON SPIRIVA RESPIMAT . BLAST SEE USE OF ALBUTEROL P.R.N. Coding Level of Care Code Est Pt Level 3 (51609) Diagnoses NIKKI (obstructive sleep apnea) G47.33 Obesity (BMI 30-39.9) E66.9 COPD (chronic obstructive pulmonary disease) J44.9
[2023-05-20 15:14] VITALS: BP 104/68; PULSE 58; O2SAT 96; BMI 35.2
== END 2023-05-20 15:32 | disposition home or self-care (01) ==
PROVIDERS: PCP Family Medicine; Visit Provider Internal Medicine
DX: G47.33 Obstructive sleep apnea (adult) (pediatric) (principal); E66.9 Obesity, unspecified; J44.9 Chronic obstructive pulmonary disease, unspecified
CPT/HCPCS: 99213

== ENCOUNTER → 2023-05-20 14:52 | Outpatient (BNVA) | payer MEDICARE, MEDICAID, SELFPAY | PROVIDERS: PCP Family Medicine; Visit Provider Internal Medicine | DX: G47.33 Obstructive sleep apnea (adult) (pediatric) (principal); J44.9 Chronic obstructive pulmonary disease, unspecified; E66.9 Obesity, unspecified; Z68.35 Body mass index [BMI] 35.0-35.9, adult | CPT/HCPCS: 99212 ==

== ENCOUNTER 2023-07-21 15:26 | Outpatient (AMB) | payer OTHER, SELFPAY ==
--- NOTE | 2023-07-21 15:35 | A.OFFVIS_ITS ---
Intake Vital Signs 07/21/23 15:36 Height 5 ft 3 in Weight 197 lb 15.602 oz BMI 35.1 BP 90/62 Blood Pressure Location Lt brachial Position Sitting Pulse 81 Pulse Source Monitor Intake Visit Reasons: Follow up that is supposse to be on 06/22/23. Design Engineering Intern Required: No Dam Tender Assistant: Dam Tender Assistant Present Allergies peanut Allergy (Severe, Verified 07/21/23 15:39) angioedema lisinopril [LISINOPRIL] Allergy (Intermediate, Verified 07/21/23 15:39) RASH, cough zoster vaccine live [SHINGLES VACCINE] Allergy (Intermediate, Verified 07/21/23 15:39) LOCALIZED REDNESS, SWELLING, FEVER,COUGH latex [LATEX] Allergy (Unknown, Verified 07/21/23 15:39) RASH pineapple [PINEAPPLE] Allergy (Unknown, Verified 07/21/23 15:39) RASH strawberry [STRAWBERRY] Allergy (Unknown, Verified 07/21/23 15:39) RASH adhesive Allergy (Verified 07/21/23 15:39) Blister Medication List - Last Reconciled 07/21/23 by Janna Cruz NP-C acetaminophen (Tylenol Extra Strength) 500 mg PO Q6H PRN albuterol sulfate 90 mcg/actuation (ProAir HFA) 2 puffs PO Q4H aspirin 81 mg PO DAILY atorvastatin 80 mg PO BEDTIME benzonatate 200 mg PO TID PRN 5 days budesonide-formoterol 160-4.5 mcg/actuation (Symbicort) 2 puffs inhalation BID clopidogrel 75 mg PO DAILY fluticasone propionate 50 mcg/actuation sprays intranasal hydrocortisone 1% [place] isosorbide mononitrate ER 60 mg PO DAILY lidocaine 5% 1 appl topical PRN loratadine 10 mg PO BEDTIME metoclopramide HCl (Reglan) 5 mg PO QIDACHS metoprolol succinate ER 100 mg (2 x 50 mg) PO QAM montelukast 10 mg PO BEDTIME nitroglycerin 0.4 mg sublingual Q5M PRN pantoprazole 40 mg PO QAM peg 3350-electrolytes 236-22.74-6.74 -5.86 gram (Golytely) 240 mL PO Q10M 1 day pregabalin (Lyrica) 50 mg PO BID simethicone 180 mg PO QID 30 days tiotropium bromide 1.25 mcg/actuation (Spiriva Respimat) 2 puffs inhalation DAILY HPI Follow up that is supposse to be on 06/22/23. HPI Details Araseli is a 68-year-old female with past medical history obesity, hyperlipidemia, PVCs, coronary artery disease, NSTEMI with occluded RCA then RCA stent who recently reported chest discomfort and underwent a cardiac catheterization receiving stent to the LAD. She now presents for follow-up. Today she reports she continues to get some discomfort in her mid chest. Isosorbide was increased last visit and she tells me it did help relieve the degree of her discomfort. It can still happen randomly and with activity. She will take a nitroglycerin and lay down to rest. Discomfort will gradually resolve within 30 minutes. No shortness of breath, presyncope, syncope, PND, orthopnea or edema. She does get heart palpitations which are not new. She has been doing light physical activity. She did not follow through with cardiac rehab as the schedule did not match her ability to get rides. She has been doing light exercise at home. Daughter is present. [facility] Medical History COPD (chronic obstructive pulmonary disease) Cataract [place]PE (obstructive sleep apnea) Obesity (BMI 30-39.9) Hemorrhoids with complication Family history of ovarian cancer [place] (obstructive sleep apnea) Hemorrhoids with complication NSVT (nonsustained ventricular tachycardia) PVC (premature ventricular contraction) Surgical History History of coronary artery stent placement History of esophagogastroduodenoscopy (EGD) Hx of colonoscopy History of shoulder surgery (~04/29/18) History of lumbar laminectomy Family History Father Cardiovascular disease Mother Osteoarthritis Family/Other Ovarian cancer, Onset Age: 30 Social History Household Members: Spouse Alcohol intake: never Patient Tobacco Use Status: Never used Tobacco service: No Current occupational status: unemployed Current occupation: rt handed Review of Systems Const All systems reviewed & are unremarkable except as noted in HPI and below ENT Denies dizziness Card Reports chest pain, Reports chest pain at rest, Reports chest pain with activity, Denies rapid heart rate, Denies pedal edema, Denies edema, Reports leg edema, Denies lightheadedness, Denies palpitations, Reports dyspnea, Reports dyspnea on exertion and Denies orthopnea Resp Denies cough, Reports dyspnea and Reports dyspnea on exertion GI Denies hematochezia and Denies change in stool character Musc Denies abnormal gait, Denies limited range of motion, Denies muscle cramps, Denies muscle weakness, Denies numbness, Denies radiating pain into limb, Denies stiffness and Denies tingling Neuro Denies abnormal gait, Denies dizziness, Denies numbness and Denies tingling Endo Denies palpitations Physical Exam Vital Signs: Last Vital Signs Pulse 81 07/21/23 15:36 BP 90/62 07/21/23 15:36 BMI result Body Mass Index 35.1 Const General: cooperative, healthy appearing, comfortable and no acute distress Orientation/consciousness: patient oriented x3 Neck Neck: Yes normal visual inspection Resp Effort & Inspection: normal respiratory effort Auscultation: clear to auscultation bilaterally, no crackles, no rales, no rhonchi and no wheezes Cardio Jugular venous distension: no JVD Rate: regular rate Rhythm: regular rhythm Heart sounds: S1 normal heart sound present, S2 normal heart sound present, no murmurs and no rubs Neuro General: patient oriented x3 Extrem General: Yes normal to inspection Psych Appearance: grossly normal Mental Status: mental status grossly normal Speech and movement: Normal speech and movement present Office Procedures EKG Details: Today, read by me, sinus rhythm with sinus arrhythmia, first-degree AV block, frequent PVCs, rate 81 [id number], Complete Assessment & Plan Assessment & Plan (1) Atherosclerotic cardiovascular disease: Code(s): I25.10 - Atherosclerotic heart disease of [place] coronary artery without angina pectoris Plan: History of NSTEMI, 09/2021. Cardiac catheterization at that time showed occluded RCA, stents placed. Cardiac risks of obesity and hyperlipidemia. She recently reported chest discomfort and underwent diagnostic cardiac catheterization on 12/25/2022 showing proximal LAD 85% stenosis, MOOK placed. She does have residual 1st OM and proximal left circumflex stenosis. RCA stents were patent. Last echocardiogram 07/21/2022 showed EF 50-55%, mild LVH, mild MR, basal inferior akinetic, no significant change from 09/2021. On post cath follow up she reported that her prior chest discomfort has resolved. On last visit she reported a random sharp pain in the mid chest that can last up to a half an hour. She does take nitroglycerin in lays down with gradual improvement in her symptom. This is different from her prior angina. It does not respond quickly to nitroglycerin so I was unclear if this is angina or atypical pain. Trialed an increase in isosorbide up to 60 mg daily. Today she reports that the isosorbide did help decrease the degree of discomfort she was feeling. Today she is describing her discomfort as a light pressure that can happen with activity and at rest. Since isosorbide did help will plan a pharmacological nuclear stress test to evaluate for ischemia. Will update her primary cardiology physician assistant Dr. Cesar. Continue aspirin indefinitely. Plavix 75 mg daily uninterrupted for at least 1 year. Continue high-dose atorvastatin with ideal LDL goal less than 70. Labs done 11/05/2022 showed LDL 56. Continue metoprolol. Signs and symptoms of angina discussed. Emergency care if ever needed for symptoms. Cardiology follow-up when test results are available.. (2) S/P cardiac catheterization: Comment: 12/25/2022, left main normal, proximal LAD 85% stenosis, stent placed, 1st OM 80% stenosis, proximal circumflex 50% stenosis, RCA stents patent Code(s): Z98.890 - Other specified postprocedural states Plan: As above (3) History of cardiac cath: Comment: 09/21/2021 the left main normal, lad proximal 70% stenosis, 1st diagonal 50% stenosis, left circumflex proximal 60% stenosis, RCA mid 100% stenosis, 2 MOOK placed Code(s): Z98.890 - Other specified postprocedural states Plan: As above (4) Precordial chest pain: Code(s): R07.2 - Precordial pain Plan: As above (5) PVC (premature ventricular contraction): Code(s): I49.3 - Ventricular premature depolarization Plan: Known history of frequent PVCs. Last Holter monitor done 10/08/2021 showed PVC burden 25%. She is on metoprolol. EKG done today is showing normal sinus rhythm with frequent PVCs, 5 PVCs noted on the tracing. She does report heart palpitations but they do not cause her much concern. Will check a Holter monitor for further evaluation. Plan Time spent with chart review, documentation, interview assessment Orders: Orders CA lexiscan stress w dwight Today I25.10 - Atherosclerotic heart disease of [place] coronary artery without angina pectoris, R07.89 - Other chest pain, Z98.890 - Other specified postprocedural states NM cardiolite stress test Today I25.10 - Atherosclerotic heart disease of [place] coronary artery without angina pectoris, R07.89 - Other chest pain ECG 3 day holter monitor Today I49.3 - Ventricular premature depolarization, R00.2 - Palpitations Medications: New clopidogrel 75 mg PO DAILY 90 tabs 1RF Changed From aspirin 81 mg PO DAILY To aspirin 81 mg PO DAILY 90 tabs 3RF 90 days Refilled isosorbide mononitrate ER 60 mg PO DAILY 30 tabs 5RF atorvastatin 80 mg PO BEDTIME 90 tabs 3RF Coding Level of Care Code Est Pt Level 4 (78294) Diagnoses Atherosclerotic cardiovascular disease I25.10 S/P cardiac catheterization Z98.890 History of cardiac cath Z98.890 Precordial chest pain R07.2 PVC (premature ventricular contraction) I49.3 CPT Codes EKG - CPT: [id number], Complete ([id number]) Time Spent (min) 28
[2023-07-21 15:36] VITALS: BP 90/62; PULSE 81; BMI 35.1
== END 2023-07-21 16:10 | disposition home or self-care (01) ==
PROVIDERS: PCP Family Medicine; Visit Provider Nurse Practitioner Family
DX: I25.10 Atherosclerotic heart disease of native coronary artery without angina pectoris (principal); Z98.890 Other specified postprocedural states; R07.2 Precordial pain; I49.3 Ventricular premature depolarization
CPT/HCPCS: 93010; 99214

== ENCOUNTER → 2023-07-21 15:26 | Outpatient (BNVA) | payer MEDICARE, SELFPAY | PROVIDERS: PCP Family Medicine; Visit Provider Nurse Practitioner Family | DX: R07.2 Precordial pain (principal); I25.10 Atherosclerotic heart disease of native coronary artery without angina pectoris; I44.0 Atrioventricular block, first degree; I49.3 Ventricular premature depolarization; I10 Essential (primary) hypertension; Z98.890 Other specified postprocedural states; Z95.5 Presence of coronary angioplasty implant and graft | CPT/HCPCS: 93005 ==

== ENCOUNTER 2023-08-31 09:45 | Outpatient (REF) | payer OTHER, SELFPAY ==
[2023-08-31 10:09] LABS: MANUAL DIFF FLAG NO
[2023-08-31 10:43] LABS: Basophils Absolute Auto 0.1 X10*3/uL (0.0-0.2); Basophils Percent Auto 1.3 % (0-2); Eosinophils Absolute Auto 0.2 X10*3/uL (0.0-0.4); Eosinophils Percent Auto 2.4 % (0-4); Hematocrit 41.9 % (37.0-47.0); Hemoglobin 13.7 g/dl (12.0-16.0); Imm Gran Abs Auto 0.04 X10*3/uL (0.00-0.03); Imm Gran Pct Auto 0.4 % (0.0-0.4); Lymphocytes Absolute Auto 1.9 X10*3/uL (1.2-4.9); Mean Corpuscular HGB Conc 32.7 g/dl (31.0-35.0); Mean Corpuscular Hemoglobin 28.4 pg (27.0-33.0); Mean Corpuscular Volume 86.7 fL (80.0-98.0); Mean Platelet Volume 11.2 fL (9.4-12.3); Monocytes Absolute Auto 0.7 X10*3/uL (0.1-1.2); Monocytes Percent Auto 7.3 % (2-11); Neutrophils Absolute Auto 6.2 x10*3/uL (2.0-8.3); Neutrophils Percent Auto 67.6 % (45-73); Platelet Count 227 X10*3/uL (160-400); Red Blood Count 4.83 X10*6/uL (4.20-5.50); Red Cell Distribution Width 14.6 % (11.0-16.0); White Blood Count 9.1 X10*3/uL (4.8-10.8)
[2023-08-31 10:50] LABS: INTERNATIONAL NORM RATIO 0.9 (0.9-1.1); Prothrombin Time 11.3 SEC (11.1-13.3)
[2023-08-31 11:11] LABS: Anion Gap 13 (12-20); Blood Urea Nitrogen 20 mg/dL (9-16); Calcium 9.2 mg/dL (8.4-10.2); Carbon Dioxide 23 mmol/L (22-29); Chloride 110 mmol/L (96-108); Estimated Glomerular Filt Rate > 60; Glucose Random 177 mg/dL (60-115); Potassium 4.2 mmol/L (3.3-5.1); Sodium 142 mmol/L (135-145)
== END 2023-08-31 09:46 | disposition home or self-care (01) ==
LOC: HO.LAB 09:45
PROVIDERS: PCP Family Medicine; Visit Provider Nurse Practitioner Family
DX: R07.89 Other chest pain (principal); Z98.890 Other specified postprocedural states; I25.10 Atherosclerotic heart disease of native coronary artery without angina pectoris
CPT/HCPCS: 36415; 80048; 85025; 85610

== ENCOUNTER → 2023-09-04 08:14 | Outpatient (REF) | payer OTHER, SELFPAY ==
--- NOTE | ~2023-09-04 | NM_ITS ---
Lexiscan Myocardial perfusion study Indication: Chest pain, coronary disease Technique: The patient was brought in for a Lexiscan perfusion study on 09/04/2023 and was injected 0.4 mg of Lexiscan intravenously. Within a minute of this injection 30 mCi of sestamibi was given intravenously. Images were obtained using the SPECT gamma camera interlaced with the gating device. Images were obtained in supine position. Resting perfusion study was performed on 09/08/2023. Patient was administered 30 mCi of sestamibi intravenously at rest. Images were then obtained in supine position. Images were processed with the software and compared side to side in short axis, horizontal long axis and vertical long axis views. Total DLP 110mGy-cm. Findings: Raw acquisition reviewed. The stress perfusion study showed diminished tracer uptake in the anterior wall, inferior wall as well as the part of septum. With CT attenuation correction, there is slight improvement in the anterior wall. Inferior wall assessment suboptimal, as there is subdiaphragmatic tracer uptake. The gated study shows normal LV systolic function with calculated LVEF of 58%. LV cavity is normal in size. The gated study shows normal wall thickening and contraction of segments. Resting study shows no significant perfusion abnormality. Gating at rest reveals normal wall motion with ejection fraction at 53%. The findings are consistent with reversible tracer uptake in the anterior wall, inferior wall as well as parts of septum but with normal contractility. NM/NM cardiolite stress test Impression: 1. Myocardial perfusion imaging study shows reversible perfusion defects in the anterior wall, inferior wall and septum but with normal contractility. Suspect more towards artifactual etiology, less likely ischemia. 2. Gated LVEF is 58% during stress and 53% during rest. 3. Transient ischemic dilatation not present. EKG component of the test reported separately.
--- NOTE | 2023-09-04 08:20 | HM_ITS ---
* Total monitoring time 3 days. * Underlying rhythm is sinus with an average rate of 87/Min. * Frequent ventricular ectopy with a burden of 30%. Frequent couplets. Several short runs, longest 3 beats. * No significant pauses or high-grade AV blocks. * Patient markers used in association with sinus rhythm and ventricular ectopy. * Symptoms of heart racing, chest pressure and similar symptoms correlates with ventricular ectopy. MTDD
--- NOTE | 2023-09-04 08:20 | CA_ITS ---
Acquisition Time: 2023-09-04 08:29:36 Total Exercise Time: 00:02:00 Test Indications: CP, PVC'S Medications: SEE H Protocol: LEXISCAN Max HR: 108 BPM 70% of Pred: 153 BPM Max BP: 138/080 mmHG Max Work Load: 1.0 METS Pharmacological stress test with Lexiscan injection while sitting and kicking her legs, with baseline 2/10 stabbing in chest, with 8/10 chest pressure during test, with isolated PVCs and cuplets and triplet, with nromotensive response to injection, with nondiagnoisitic EKGs.Chest pains returned to baseline. Aminophylline 75mg IVP given to reverse Lexiscan. Nuclear images pending. Test reviewed with Dr. Fuentes. Referred By: Janna Cruz Overread By: Alba Beth
== END ==
LOC: HO.CARD 08:14
PROVIDERS: PCP Family Medicine; Visit Provider Nurse Practitioner Family
DX: R07.89 Other chest pain (principal); R00.2 Palpitations; I49.3 Ventricular premature depolarization; I25.10 Atherosclerotic heart disease of native coronary artery without angina pectoris; Z98.890 Other specified postprocedural states
CPT/HCPCS: 78452; 93017; 93242; A9500; J0280; J2785

== ENCOUNTER → 2023-09-04 08:20 | Outpatient (BNV) | payer OTHER, SELFPAY | PROVIDERS: PCP Family Medicine; Visit Provider Nurse Practitioner | DX: I49.3 Ventricular premature depolarization (principal) | CPT/HCPCS: 78452; 93016; 93018; 93244 ==

== ENCOUNTER → 2023-09-10 23:59 | Outpatient (BNV) | payer OTHER, SELFPAY | PROVIDERS: PCP Family Medicine; Visit Provider Internal Medicine Cardiovascular Disease | DX: I25.118 Atherosclerotic heart disease of native coronary artery with other forms of angina pectoris (principal) | CPT/HCPCS: 92928; 92978; 93458; 99152 ==

== ENCOUNTER 2023-09-28 13:54 | Outpatient (AMB) | payer OTHER, SELFPAY ==
[2023-09-28 13:59] VITALS: BP 122/58; PULSE 62; BMI 35.0
--- NOTE | 2023-09-28 13:59 | A.OFFVIS_ITS ---
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 Management Accountant: Management Accountant Present Allergies peanut Allergy (Severe, Verified 09/28/23 14:01) angioedema lisinopril [LISINOPRIL] Allergy (Intermediate, Verified 09/28/23 14:01) RASH, cough zoster vaccine live [SHINGLES VACCINE] Allergy (Intermediate, Verified 09/28/23 14:01) LOCALIZED REDNESS, SWELLING, FEVER,COUGH latex [LATEX] Allergy (Unknown, Verified 09/28/23 14:01) RASH pineapple [PINEAPPLE] Allergy (Unknown, Verified 09/28/23 14:01) RASH strawberry [STRAWBERRY] Allergy (Unknown, Verified 09/28/23 14:01) RASH adhesive Allergy (Verified 09/28/23 14:01) Blister Medication List - Last Reconciled 09/28/23 by TWAN Kaur albuterol sulfate 90 mcg/actuation (ProAir HFA) 2 puffs PO Q4H aspirin 81 mg PO DAILY 90 days atorvastatin 80 mg PO BEDTIME benzonatate 200 mg PO TID PRN 5 days budesonide-formoterol 160-4.5 mcg/actuation (Symbicort) 2 puffs inhalation BID clopidogrel 75 mg PO DAILY fluticasone propionate 50 mcg/actuation sprays intranasal hydrocortisone 1% WI isosorbide mononitrate ER 60 mg PO DAILY lidocaine 5% 1 appl topical PRN loratadine 10 mg PO BEDTIME metoclopramide HCl (Reglan) 5 mg PO QIDACHS metoprolol succinate ER 50 mg PO QAM montelukast 10 mg PO BEDTIME nitroglycerin 0.4 mg sublingual Q5M PRN pantoprazole 40 mg PO QAM peg 3350-electrolytes 236-22.74-6.74 -5.86 gram (Golytely) 240 mL PO Q10M 1 day pregabalin (Lyrica) 50 mg PO BID simethicone 180 mg PO QID 30 days tiotropium bromide 1.25 mcg/actuation (Spiriva Respimat) 2 puffs inhalation DAILY HPI HPI f/u after Cardiac Cath: Details: Araseli is a 68-year-old female with past medical history obesity, hyperlipidemia, PVCs, coronary artery disease, NSTEMI with occluded RCA then RCA stent, recurrent chest discomfort and underwent a cardiac catheterization receiving stent to the LAD. She again reported recurrent chest discomfort had abnormal nuclear stress test and cardiac catheterization with no stent placed to the OM1. She now presents for follow-up. Today she reports she continues to get some discomfort in her mid chest. It radiates from her left side over to her mid chest and occurs every day, several times through the day. She has no known triggers. At time she will notice it if she is laying on her left side and she has to roll over onto her right side. She does not feel this symptom has improved following her most recent stenting. Right radial catheterization site is feeling good. She has no concerning shortness of breath, presyncope, syncope, PND, orthopnea or edema. She does get heart palpitations which are not new. She has been doing light physical activity. She has not interested in cardiac rehab. Daughter is present [facility] Medical History COPD (chronic obstructive pulmonary disease) Cataract GUADALUPE (obstructive sleep apnea) Obesity (BMI 30-39.9) Hemorrhoids with complication Family history of ovarian cancer GUADALUPE (obstructive sleep apnea) Hemorrhoids with complication NSVT (nonsustained ventricular tachycardia) PVC (premature ventricular contraction) Surgical History History of coronary artery stent placement History of esophagogastroduodenoscopy (EGD) Hx of colonoscopy History of shoulder surgery (~04/29/18) History of lumbar laminectomy Family History Father Cardiovascular disease Mother Osteoarthritis Family/Other Ovarian cancer, Onset Age: 30 Social History Household Members: Spouse Alcohol intake: never Patient Tobacco Use Status: Never used Tobacco service: No Current occupational status: unemployed Current occupation: rt handed Review of Systems Const All systems reviewed & are unremarkable except as noted in HPI and below ENT Denies dizziness Card Details: palpitation Reports chest pain, Reports chest pain at rest, Denies chest pain with activity, Denies rapid heart rate, Denies pedal edema, Denies edema, Denies leg edema, Denies lightheadedness, Denies palpitations, Denies dyspnea, Denies dyspnea on exertion and Denies orthopnea Resp Denies cough, Denies dyspnea and Denies dyspnea on exertion GI Denies hematochezia and Denies change in stool character Musc Denies abnormal gait, Denies limited range of motion, Denies muscle cramps, Denies muscle weakness, Denies numbness, Denies radiating pain into limb, Denies stiffness and Denies tingling Neuro Denies abnormal gait, Denies dizziness, Denies numbness and Denies tingling Endo Denies palpitations Physical Exam Vital Signs: Last Vital Signs Pulse 62 09/28/23 13:59 BP 122/58 L 09/28/23 13:59 BMI result Body Mass Index 35.0 Const General: cooperative, healthy appearing, comfortable and no acute distress Orientation/consciousness: patient oriented x3 Neck Neck: Yes normal visual inspection Resp Effort & Inspection: normal respiratory effort Auscultation: clear to auscultation bilaterally, no crackles, no rales, no rhonchi and no wheezes Cardio Jugular venous distension: no JVD Rate: regular rate Rhythm: regular rhythm Heart sounds: S1 normal heart sound present, S2 normal heart sound present, no murmurs and no rubs Neuro General: patient oriented x3 Extrem General: Yes normal to inspection Psych Appearance: grossly normal Mental Status: mental status grossly normal Speech and movement: Normal speech and movement present Assessment & Plan Assessment & Plan (1) Atherosclerotic cardiovascular disease: Code(s): I25.10 - Atherosclerotic heart disease of samish coronary artery without angina pectoris Category: Medical Plan: History of NSTEMI, 09/2021. Cardiac catheterization at that time showed occluded RCA, stents placed. Cardiac risks of obesity and hyperlipidemia. She then reported chest discomfort and underwent diagnostic cardiac catheterization on 12/25/2022 showing proximal LAD 85% stenosis, MOOK placed. She was known to have residual 1st OM and proximal left circumflex stenosis. Last echocardiogram 07/21/2022 showed EF 50-55%, mild LVH, mild MR, basal inferior akinetic, no significant change from 09/2021. On initial follow-up she report that her chest discomfort had resolved. Then on repeat visit she reported recurrent mid chest discomfort. Her isosorbide was increased with some improvement. She underwent a nuclear stress test on 09/08/2023 with findings of reversible defects suggestive of artifact. Due to her history she then underwent cardiac catheterization on 09/10/2023 showing OM1 90% stenosis, MOOK placed, ostial left circumflex 50% stenosis, patent stents in the RCA and LAD. Right radial catheterization site is healing well. At this time she continues to report left-sided chest discomfort, frequent and random occurrence. A recent Holter shows very frequent PVC can be contributing to this symptom. It has possible the PVCs are causing her discomfort and it may not be true angina. Will have her continue on isosorbide 60 mg daily. Will increase metoprolol XL up to 75 mg daily. Will check echocardiogram to reassess EF and wall motion. Will check a cardiac MRI due assess for any muscle make up abnormalities as she has very frequent PVCs. Will refer to electrophysiology to see if PVC ablation can be considered. Continue aspirin indefinitely. Plavix 75 mg daily uninterrupted for at least 1 year post most recent stent. Continue high-dose atorvastatin with ideal LDL goal less than 70. Labs done 11/05/2022 showed LDL 56. Signs and symptoms of angina discussed. Emergency care if ever needed for symptoms. Cardiology follow-up 2 months, sooner if needed (2) PVC (premature ventricular contraction): Code(s): I49.3 - Ventricular premature depolarization Category: Medical Plan: Known history of frequent PVCs. Holter monitor done 10/08/2021 showed PVC burden 25%. She is on metoprolol. EKG done last visit is showing normal sinus rhythm with frequent PVCs, 5 PVCs noted on the tracing. She does report heart palpitations. Holter monitor done on 09/04/2023 shows sinus rhythm with average heart rate 87, PVCs 30% of the time, couplets and 3 beat runs. Evaluation and treatment as stated above. It is possible that her PVCs are causing her discomfort. (3) S/P cardiac catheterization: Comment: 12/25/2022, left main normal, proximal LAD 85% stenosis, stent placed, 1st OM 80% stenosis, proximal circumflex 50% stenosis, RCA stents patent 09/10/2023, RCA stent patent, lad stent patent, ostial left circumflex 50% stenosis, OM1 90% stenosis, MOOK placed Code(s): Z98.890 - Other specified postprocedural states Category: Surgical Plan: As above (4) History of cardiac cath: Comment: 09/21/2021 the left main normal, lad proximal 70% stenosis, 1st diagonal 50% stenosis, left circumflex proximal 60% stenosis, RCA mid 100% stenosis, 2 MOOK placed Code(s): Z98.890 - Other specified postprocedural states Category: Surgical Plan: As above (5) Precordial chest pain: Code(s): R07.2 - Precordial pain Category: Medical Plan: As above (6) Frequent PVCs: Code(s): I49.3 - Ventricular premature depolarization Category: Medical Plan: As above Plan Time spent with chart review, documentation, interview assessment Orders: Orders CA echo transthoracic complete Today I49.3 - Ventricular premature depolarization Referrals Cardiac Electrophysiology Referral I49.3 - Ventricular premature depolarization Medications: Changed From metoprolol succinate ER dose reduced 50 mg PO QAM 90 tabs 3RF To metoprolol succinate ER dose increased 75 mg (1.5 x 50 mg) PO QAM 135 tabs 3RF Coding Level of Care Code Est Pt Level 4 (33307) Diagnoses Atherosclerotic cardiovascular disease I25.10 PVC (premature ventricular contraction) I49.3 S/P cardiac catheterization Z98.890 History of cardiac cath Z98.890 Precordial chest pain R07.2 Frequent PVCs I49.3 Time Spent (min) 36
== END 2023-09-28 14:45 | disposition home or self-care (01) ==
PROVIDERS: PCP Family Medicine; Visit Provider Nurse Practitioner Family
DX: I25.10 Atherosclerotic heart disease of native coronary artery without angina pectoris (principal); I49.3 Ventricular premature depolarization; Z98.890 Other specified postprocedural states; R07.2 Precordial pain
CPT/HCPCS: 99214

== ENCOUNTER → 2023-09-28 13:54 | Outpatient (BNVA) | payer OTHER, SELFPAY | PROVIDERS: PCP Family Medicine; Visit Provider Nurse Practitioner Family ==

== ENCOUNTER 2023-09-30 15:49 | Outpatient (AMB) | payer OTHER, SELFPAY ==
[2023-09-30 15:52] VITALS: BP 120/53; PULSE 79; BMI 34.9
--- NOTE | 2023-09-30 15:52 | MHC.OFFVIS ---
Vital Signs 09/30/23 15:52 Height 5 ft 3 in Weight 196 lb 13.965 oz BMI 34.9 BP 120/53 L Blood Pressure Location Rt brachial Position Sitting Pulse 79 Intake Visit Reasons: follow up medication Intake Note: Araseli presents in office today in follow up of CIC. CC: Patient states that she had another coronary artery stent placed on 09/09. 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: Yes Accompanied by: Daughter Allergies peanut Allergy (Severe, Verified 09/30/23 16:04) angioedema lisinopril [LISINOPRIL] Allergy (Intermediate, Verified 09/30/23 16:04) RASH, cough zoster vaccine live [SHINGLES VACCINE] Allergy (Intermediate, Verified 09/30/23 16:04) LOCALIZED REDNESS, SWELLING, FEVER,COUGH latex [LATEX] Allergy (Unknown, Verified 09/30/23 16:04) RASH pineapple [PINEAPPLE] Allergy (Unknown, Verified 09/30/23 16:04) RASH strawberry [STRAWBERRY] Allergy (Unknown, Verified 09/30/23 16:04) RASH adhesive Allergy (Verified 09/30/23 16:04) Blister HPI HPI follow up medication: Details: Assessment & Plan (1) Delayed gastric emptying: Comment: Confirmed GES Code(s): K30 - Functional dyspepsia Plan: [place]ian # grandtr translates per patient request. She is overdue for colonoscopy which is been overlooked because she has been having multiple cardiac caths and problems. She says she is now stable and ready to be scheduled for colonoscopy. She is now doing well on the reglan and the protonix and simethicone, she is having absolutely no adverse effects. There are no prior problems with anesthesia or sedation. Her cardiac disease is now stable (Arsenio) and she denies any respiratory problems. She is not on any anticoagulants therapy. No ID problems. She had a TA in 2017 ROV 6 mos. (2) Chronic idiopathic constipation: Code(s): K59.04 - Chronic idiopathic constipation (3) GERD (gastroesophageal reflux disease): Code(s): K21.9 - Gastro-esophageal reflux disease without esophagitis (4) Tubular adenoma of colon: Comment: 2017 scope= TA repeat in 5 years Code(s): D12.6 - Benign neoplasm of colon, unspecified Orders: Orders Colonoscopy - GI Use Only Today D12.6 - Benign neoplasm of colon, unspecified Medications: New peg 3350-electrolytes 236-22.74-6.74 -5.86 gram (Golytely) until fecal effluent is clear; do not exceed a total volume of 2,000 mL 240 mL PO Q10M 1 day 4,000 mL 0RF Z12.11 - Encounter for screening for malignant neoplasm of colon pantoprazole 40 mg PO QAM 30 tabs 6RF Refilled simethicone after meals 180 mg PO QID 30 days 120 caps 6RF R14.0 - Abdominal distension (gaseous) metoclopramide HCl (Reglan) 5 mg PO QIDACHS 120 tabs 6RF K30 - Functional dyspepsia COLONOSCOPY BIOPSY CORRESPONDENCE On 06/09/23 @ 15:03 Jesusita Acuna Wrote To [facility] patint has an upcoming ov can discuss rescheduling after appt. Jesusita Acuna completed item. On 06/09/23 @ 13:56 Miriam Maldonado Wrote To [facility] patient notified of needing to r/s - after 12/25. She is aware, one of the schedulers will call her to r/s. OR notified On 06/09/23 @ 08:31 Suri Issa Wrote To Miriam Maldonado She is overdue, but not urgent and of couse we need to consider her cardiac status over this. So its okay. On 06/08/23 @ 08:54 Miriam Maldonado Wrote To Suri Issa July see below msg. Colonoscopy is not urgent, correct? can I reschedule her. On 06/05/23 @ 17:27 Janna Cruz Wrote To Miriam Maldonado She had cardiac cath 12/25/22 and new Stent placed in the LAD. Ideally She needs to be on aspirin and plavix uninterrupted for at least 1 year. If colonoscopy is not routine and more urgently needed please let me know. On 06/05/23 @ 10:43 Miriam Maldonado Wrote To Janna Cruz (2) Patient is scheduled for colonoscopy Thursday 06/15. She is on Plavix, questioning if this can be held for procedure? please advise TODAYS VISIT Bol[place]ian # She is here today with a female family member who is supportive. She is now doing well on the reglan and the protonix and simethicone, she is having absolutely no adverse effects. She has not been here because she had to have 2 more cardiac stents, she also is seeing EP for an irregular HB. She has been out of her meds for a month, so stomach is BAD! Will refill and she wants to change to [facility]. Can't consider scope until stents have stabilized along with inability to hold antiplatelet therapy. ROV 8 weeks. [facility] Medical History (Updated 09/30/23 @ 16:19 by JUAN Torres-C) COVID-19 Palpitation Precordial chest pain Hemorrhoids Abdominal bloating Abdominal cramping Back pain Encounter for monitoring anti-arrhythmic therapy Fracture of proximal phalanx of right ring finger Syncope and collapse Acute non-ST elevation myocardial infarction (NSTEMI) Fracture of lesser tuberosity of right humerus Fracture of proximal end of right humerus Family history of ovarian cancer Early satiety COPD (chronic obstructive pulmonary disease) Cataract GUADALUEP (obstructive sleep apnea) Obesity (BMI 30-39.9) Hemorrhoids with complication GUADALUPE (obstructive sleep apnea) Hemorrhoids with complication NSVT (nonsustained ventricular tachycardia) PVC (premature ventricular contraction) Surgical History (Updated 09/30/23 @ 16:19 by DYLAN Torres) S/P cardiac catheterization History of cardiac cath History of coronary artery stent placement History of esophagogastroduodenoscopy (EGD) Hx of colonoscopy History of shoulder surgery (~04/29/18) History of lumbar laminectomy Family History (Reviewed 09/30/23 @ 15:59 by Malka Goyal [facility]) Father Cardiovascular disease Mother Osteoarthritis Family/Other Ovarian cancer, Onset Age: 30 Social History Household Members: Spouse Alcohol intake: never Patient Tobacco Use Status: Never used Tobacco service: No Current occupational status: unemployed Current occupation: rt handed Review of Systems Const Denies fatigue, Denies fever(s), Denies night sweats, Denies poor appetite and Denies weight loss ENT Reports Normal hearing present, Denies dental pain, Denies dysphagia, Denies hearing loss, Denies mouth pain, Denies odynophagia, Denies throat swelling, Denies tongue swelling and Reports other (Dentition adequate) Card Reports no additional complaints Resp Reports no additional complaints GI Details: Denies abdominal pain, Denies melena, Denies bloating, Denies hematochezia, Reports constipation, Denies GI cramping, Denies dysphagia, Denies excessive flatus, Denies early satiety, Reports dyspepsia, Reports heartburn, Denies diarrhea, Denies nausea, Denies odynophagia, Denies vomiting and Denies hematemesis Skin/Breast Denies pruritus, Denies lesions, Denies rash and Denies jaundice Neuro Reports Normal hearing present and Denies Abnormal speech present Endo Denies fatigue Aller/Immun Denies throat swelling and Denies tongue swelling Physical Exam Vital Signs: Last Vital Signs Pulse 79 09/30/23 15:52 BP 120/53 L 09/30/23 15:52 BMI result Body Mass Index 34.9 Const General: cooperative, no acute distress, well developed and well groomed Nutritional Appearance: well nourished and obese Orientation/consciousness: oriented to person, oriented to place and oriented to time Limitations: language barrier HEENT Head: Yes normocephalic and Yes atraumatic Eyes General: appearance normal, both eyes and all related structures Pupils: Equal, round and reactive pupils present Neck Neck: Yes normal visual inspection and Yes no lymphadenopathy Thyroid: Thyroid normal Resp Effort & Inspection: normal respiratory effort and able to speak in complete sentences Auscultation: clear to auscultation bilaterally Cardio Rate: regular rate Rhythm: regular rhythm Heart sounds: Normal, physiologic split S2 sound present Peripheral pulses: radial pulses present and posterior tibial pulses present GI Inspection: No distended, Yes Abdominal panniculus present and Yes obesity Palpation (GI): Soft to palpation, nontender, no guarding, not rigid and No hepatosplenomegaly present Percussion: Yes normal to percussion Auscultation: normal bowel sounds Rectal Exam - Female: deferred Skin General skin exam: no rashes or lesions noted, turgor normal, skin not dry, no jaundice, No spider nevi and no striae Rashes: no rashes Nails: normal Neuro General: oriented to person, oriented to place and oriented to time Cranial nerves: Yes Equal, round and reactive pupils present and Yes Normal hearing present Speech: No Abnormal speech present Extrem General: Yes normal to inspection, No clubbing, No cyanosis and No edema Psych Appearance: grossly normal and well kempt Mental Status: mental status grossly normal Speech and movement: Normal speech and movement present Affect: normal affect Attitude: cooperative Thought process: Normal thought process present and not confabulating Thought content: Normal thought content present Insight: Fair insight present (Psych) and Limited insight present (Psych) Judgement: Fair judgement present (Psych) and Limited judgement present (Psych) Assessment & Plan Assessment & Plan (1) Chronic idiopathic constipation: Code(s): K59.04 - Chronic idiopathic constipation Category: Medical (2) GERD (gastroesophageal reflux disease): Code(s): K21.9 - Gastro-esophageal reflux disease without esophagitis Category: Medical (3) Abdominal bloating: Code(s): R14.0 - Abdominal distension (gaseous) Category: Medical (4) Delayed gastric emptying: Comment: Confirmed GES Code(s): K30 - Functional dyspepsia Category: Medical (5) Tubular adenoma of colon: Comment: 2017 scope= TA repeat in 5 years Code(s): D12.6 - Benign neoplasm of colon, unspecified Category: Medical (6) Right upper quadrant abdominal pain: Comment: starts under breast, radiates to right LLQ (I review old records and she had a negative CT in 2019, 2014 normal xray of thoracic spine, 2017 colonoscopy with TA and 2017 and an EGD in 2018 with only mild gastritis. She does have extensive low back problems and an injury to C1 after a fall. She still has a GB. Extensive lab work only shows an elevated CRP and an A1c of 6.7% as abnormals. However thoracic and lumbar spine shows extensive spinal stenosis particularly of the thoracic spine so her right upper quadrant pain is most likely radiculopathy.) aeb her Code(s): R10.11 - Right upper quadrant pain Category: Medical Plan [place]ian # She is here today with a female family member who is supportive. She is now doing well on the reglan and the protonix and simethicone, she is having absolutely no adverse effects. She has not been here because she had to have 2 more cardiac stents, she also is seeing EP for an irregular HB. She has been out of her meds for a month, so stomach is BAD! Will refill and she wants to change to [facility]. Can't consider scope until stents have stabilized along with inability to hold antiplatelet therapy. ROV 8 weeks. Medications: Refilled simethicone after meals 180 mg PO QID 120 caps 6RF 30 days R14.0 - Abdominal distension (gaseous) metoclopramide HCl (Reglan) 5 mg PO QIDACHS 120 tabs 6RF K30 - Functional dyspepsia pantoprazole 40 mg PO QAM 30 tabs 6RF Coding Level of Care Code Est Pt Level 3 (22409) Diagnoses Chronic idiopathic constipation K59.04 GERD (gastroesophageal reflux disease) K21.9 Abdominal bloating R14.0 Delayed gastric emptying K30 Tubular adenoma of colon D12.6 Right upper quadrant abdominal pain R10.11
== END 2023-09-30 17:10 | disposition home or self-care (01) ==
PROVIDERS: PCP Family Medicine; Visit Provider Nurse Practitioner
DX: K59.04 Chronic idiopathic constipation (principal); K21.9 Gastro-esophageal reflux disease without esophagitis; R14.0 Abdominal distension (gaseous); K30 Functional dyspepsia; D12.6 Benign neoplasm of colon, unspecified; R10.11 Right upper quadrant pain
CPT/HCPCS: 99213

== ENCOUNTER → 2023-09-30 15:49 | Outpatient (BNVA) | payer MEDICARE, SELFPAY | PROVIDERS: PCP Family Medicine; Visit Provider Nurse Practitioner | DX: K59.04 Chronic idiopathic constipation (principal); K21.9 Gastro-esophageal reflux disease without esophagitis; K30 Functional dyspepsia; R14.0 Abdominal distension (gaseous); R10.11 Right upper quadrant pain; D12.6 Benign neoplasm of colon, unspecified | CPT/HCPCS: 99212 ==

== ENCOUNTER 2023-10-07 14:09 | Outpatient (AMB) | payer MEDICARE, SELFPAY ==
--- NOTE | 2023-10-07 14:47 | MHC.OFFVIS ---
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 Intake Note: No questions or concerns Allergies peanut Allergy (Severe, Verified 09/30/23 16:04) angioedema lisinopril [LISINOPRIL] Allergy (Intermediate, Verified 09/30/23 16:04) RASH, cough zoster vaccine live [SHINGLES VACCINE] Allergy (Intermediate, Verified 09/30/23 16:04) LOCALIZED REDNESS, SWELLING, FEVER,COUGH latex [LATEX] Allergy (Unknown, Verified 09/30/23 16:04) RASH pineapple [PINEAPPLE] Allergy (Unknown, Verified 09/30/23 16:04) RASH strawberry [STRAWBERRY] Allergy (Unknown, Verified 09/30/23 16:04) RASH adhesive Allergy (Verified 09/30/23 16:04) Blister Is last menstrual period known: No Post menopausal: No Patient : No HPI Comments Details: She is a postmenopausal woman presenting for her 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 She is doing well with no concerns. Attempting to eat a healthy diet, and stays active with exercise. Currently sexually active. Denies any vaginal dryness or irritation. STI testing offered; she declined. Last pap smear; 2022. Last mammogram; 2022. Colonoscopy is UTD. Denies any family history of breast or colon cancer. FH ovarian cancer. [facility] Medical History (Updated 09/30/23 @ 16:19 by DYLAN Torres) COVID-19 Palpitation Precordial chest pain Hemorrhoids Abdominal bloating Abdominal cramping Back pain Encounter for monitoring anti-arrhythmic therapy Fracture of proximal phalanx of right ring finger Syncope and collapse Acute non-ST elevation myocardial infarction (NSTEMI) Fracture of lesser tuberosity of right humerus Fracture of proximal end of right humerus Family history of ovarian cancer Early satiety COPD (chronic obstructive pulmonary disease) Cataract GUADALUPE (obstructive sleep apnea) Obesity (BMI 30-39.9) Hemorrhoids with complication GUADALUPE (obstructive sleep apnea) Hemorrhoids with complication NSVT (nonsustained ventricular tachycardia) PVC (premature ventricular contraction) Surgical History (Updated 09/30/23 @ 16:19 by DYLAN Torres) S/P cardiac catheterization History of cardiac cath History of coronary artery stent placement History of esophagogastroduodenoscopy (EGD) Hx of colonoscopy History of shoulder surgery (~04/29/18) History of lumbar laminectomy Family History Father Cardiovascular disease Mother Osteoarthritis Family/Other Ovarian cancer, Onset Age: 30 Social History Household Members: Spouse Alcohol intake: never Patient Tobacco Use Status: Never used Tobacco Patient : No service: No Current occupational status: unemployed Current occupation: rt handed Review of Systems Const All systems reviewed & are unremarkable except as noted in HPI and below Reports as per HPI Eyes Reports no additional complaints ENT Reports no additional complaints Card Reports no additional complaints Resp Reports no additional complaints GI Reports as per HPI and Reports no additional complaints Reports as per HPI Musc Reports no additional complaints Skin/Breast Reports as per HPI Neuro Reports no additional complaints Psych Reports no additional complaints Endo Reports no additional complaints Pepe/Lymph Reports no additional complaints Aller/Immun Reports no additional complaints Physical Exam Vital Signs: Last Vital Signs BP 122/64 10/07/23 14:49 BMI result Body Mass Index 33.5 Const General: cooperative, healthy appearing, no acute distress, well developed and alert Orientation/consciousness: patient oriented x3 HEENT Head: Yes normal to inspection Eyes General: appearance normal, both eyes and all related structures Neck Neck: Yes normal visual inspection Thyroid: Thyroid normal Chest Chest palpation & inspection: normal inspection of the chest and other (no puckering, dimpling, peau de orange, retraction, discharge, masses) Breast/axilla inspection: normal inspection of the breasts Breast/axilla palpation: normal palpation of the breasts Resp Effort & Inspection: normal respiratory effort GI Inspection: Yes normal to inspection Palpation (GI): Soft to palpation Rectal Exam - Female: deferred General: Yes bladder normal to palpation External Female Exam: normal external appearance and normal appearance of the urethra Speculum Exam - Vagina: normal appearance of the vagina, normal palpation, normal vaginal discharge and vagina atrophic Speculum Exam - Cervix: normal appearance of the cervix and normal palpation Bimanual exam- vagina & uterus: normal bimanual exam, normal palpation, uterine size normal, bladder normal to palpation, normal palpation and non-tender Bimanual Exam- Adnexa, other: no masses and Other (stool palp in lower rectum ) Skin General skin exam: no rashes or lesions noted Rashes: no rashes Neuro General: patient oriented x3 Cognition (Neuro): normal cognition Extrem General: Yes normal to inspection Psych Attitude: cooperative Thought process: Normal thought process present Assessment & Plan Assessment & Plan (1) Encounter for well woman exam with routine gynecological exam: Code(s): Z01.419 - Encounter for gynecological examination (general) (routine) without abnormal findings Plan Discussed: Current recommendations for pap smears per ASCCP guidelines. Breast awareness, periodic self breast exams and yearly mammogram. Maintain a healthy lifestyle, well balanced diet including Calcium 1,200 mg and Vitamin D 600 IU daily, and routine exercise. Contact the office with any postmenopausal bleeding. Patient verbalizes understanding and agrees to the plan of care. She was given opportunity to ask questions and all questions were answered to the best of my ability. RTO in 1 year for annual cutter and paster press clippings exam. This note is constructed using voice recognition software. While every effort has been made to ensure accuracy, configuration engineer errors may have been included. Coding Level of Care Code Est Pt Prev Care >65y(67439) Diagnoses Encounter for well woman exam with routine gynecological exam Z01.419
[2023-10-07 14:49] VITALS: BP 122/64; BMI 33.5
== END 2023-10-07 15:24 | disposition home or self-care (01) ==
PROVIDERS: PCP Family Medicine; Visit Provider Advanced Practice Midwife
DX: Z01.419 Encounter for gynecological examination (general) (routine) without abnormal findings (principal)
CPT/HCPCS: 99397

== ENCOUNTER → 2023-10-07 14:09 | Outpatient (BNVA) | payer MEDICARE, OTHER, SELFPAY | PROVIDERS: PCP Family Medicine; Visit Provider Advanced Practice Midwife ==

== ENCOUNTER → 2023-10-13 13:54 | Outpatient (REF) | payer MEDICARE, SELFPAY ==
--- NOTE | 2023-10-13 13:57 | CA_ITS ---
Transthoracic Echocardiogram Patient (Last, First, Middle): Araseli Leary, Gender: Female Date of : 1955 Age: 68 Procedure Date: 10/13/2023 Procedure Type: Transthoracic Echocardiogram Location: OP Height: 160.02 cm Weight: 90.27 kg BSA: 1.93 m2 Heart Rate: bpm BP: 112 / 68 mmHg Classroom Instructional Aide: TO Referring MD: Janna Cruz PAPER SEALER-C Symptoms: I49.3 - Ventricular premature depolarization Study Quality: Fair/Contrast ECG Rhythm: Sinus with PVC Conclusions: - The left ventricular systolic function is low normal. The visually estimated ejection fraction is between 50-55%. - The basal inferior and basal inferolateral segments are akinetic. - No obvious valvular pathology seen on this study. Findings Procedure Information Contrast agent, definity, is being given per protocol without apparent complications. Left Ventricle Normal left ventricular cavity size. There is normal left ventricular wall thickness. The left ventricular systolic function is low normal. The visually estimated ejection fraction is between 50-55%. Evidence suggests grade I (mild) diastolic dysfunction. Wall Motion Rest Echo Findings The basal inferior and basal inferolateral segments are akinetic. Right Ventricle Normal right ventricular cavity size and systolic function. Atria Both atria are normal in size. Aortic Valve There is a normal trileaflet aortic valve. There is no aortic valve stenosis. There is no aortic valve regurgitation. Mitral Valve The mitral valve appears normal. There is trace mitral valve regurgitation. There is no mitral valve stenosis. Pulmonic Valve The pulmonic valve is likely normal. Tricuspid Valve There is trace tricuspid valve regurgitation. There is no evidence of pulmonary hypertension. Great Vessels The asc aorta is normal in size. Small plaque is seen in the sino tubular ridge. Venous The inferior vena cava is normal in size and collapses greater than 50% with inspiration. Pericardium/Pleural There is no evidence of pericardial effusion. Recommendations, Care & Conclusions No obvious valvular pathology seen on this study. Measurements 2D Linear Measurements IVSd: 0.97 0.6-0.9/0.6-1.0 cm LVIDd: 4.25 3.9-5.3/4.2-5.9 cm LVIDd Index: 2.20 2.4-3.2/2.2-3.1 cm/m2 LVIDs: 2.91 2.0-3.6 cm LVPWd: 0.77 0.7-1.1 cm LA Diam: 3.50 2.7-3.8/3.0-4.0 cm LAIDs Index: 1.81 1.5-2.3 cm/m2 LV Mass: 142.90 67-162/88-224 g LV Mass Index: 74.04 43-95/49-115 g/m2 LVOT Diam: 2.10 3.0+(-)1.3 cm 2D Systolic Function EF 4C: 44.80 >55% Mitral Valve MV Pk E: 0.60 MV PK A: 0.69 MV Decel Time: 201.00 E/A: 0.90 E'Lateral: 6.09 E'Medial: 4.03 E/E' Med: 14.80 E/E' Lat: 9.80 PHT: 59.00 MVA PHT: 3.73 Decel [place]: 2.96 Aortic Valve AoV Pk Malvin: 1.63 AoV Mn Malvin: 1.07 AoV VTI: 0.36 AoV Pk Grad: 11.00 Aov Mn Grad: 5.00 EMMA Cont.VTI: 1.66 LVOT LVOT Pk Malvin: 0.73 LVOT Mn Malvin: 0.49 LVOT VTI: 0.17 LVOT Pk Grad: 2.00 LVOT Mn Grad: 1.00 LVOT Diam: 2.10 LVOT Area: 3.46 Diastolic Function MV Pk E: 0.60 MV Pk A: 0.69 E/A: 0.90 E'Medial: 4.03 E/E' Med: 14.80 E' Laterial: 6.09 E/E' Lat: 9.80 Right Ventricle TAPSE (mm): 21.90 TVS' Malvin: 10.10 Tricuspid Valve RA Press: 3.00 Great Vessels Aorta Sinus of Valsalva: 3.28 2.0-3.5 cm Ao Asc: 3.20 2.1-3.4 cm Ao Arch: 2.90 Updated in Other Vendor System with Status of Final Bishnu Cesar MD electronically signed on 10/15/2023 12:55:17 PM with status of Final
== END ==
LOC: HO.CARD 13:54
PROVIDERS: PCP Family Medicine; Visit Provider Nurse Practitioner Family
DX: I49.3 Ventricular premature depolarization (principal)
CPT/HCPCS: 93306; Q9957

== ENCOUNTER → 2023-10-13 13:57 | Outpatient (BNV) | payer MEDICARE, SELFPAY | PROVIDERS: PCP Family Medicine; Visit Provider Internal Medicine | DX: I34.0 Nonrheumatic mitral (valve) insufficiency (principal); R93.1 Abnormal findings on diagnostic imaging of heart and coronary circulation | CPT/HCPCS: 93306 ==

== ENCOUNTER 2023-12-01 14:49 | Outpatient (AMB) | payer MEDICARE, SELFPAY ==
--- NOTE | 2023-12-01 14:52 | MHC.OFFVIS ---
Vital Signs 12/01/23 14:59 Height 5 ft 3 in Weight 198 lb 13.711 oz BMI 35.2 BP 141/72 H Blood Pressure Location Lt brachial Position Sitting Pulse 76 Intake Visit Reasons: 2 month follow up Intake Note: Araseli returns to in office follow up of CIC. CC:Patient denies having any GI symptoms or concerns. 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 Accompanied by: Grand Child Allergies peanut Allergy (Severe, Verified 12/28/23 12:55) angioedema lisinopril [LISINOPRIL] Allergy (Intermediate, Verified 12/28/23 12:55) RASH, cough zoster vaccine live [SHINGLES VACCINE] Allergy (Intermediate, Verified 12/28/23 12:55) LOCALIZED REDNESS, SWELLING, FEVER,COUGH latex [LATEX] Allergy (Unknown, Verified 12/28/23 12:55) RASH pineapple [PINEAPPLE] Allergy (Unknown, Verified 12/28/23 12:55) RASH strawberry [STRAWBERRY] Allergy (Unknown, Verified 12/28/23 12:55) RASH adhesive Allergy (Verified 12/28/23 12:55) Blister HPI HPI 2 month follow up: Details: Assessment & Plan (1) Chronic idiopathic constipation: Code(s): K59.04 - Chronic idiopathic constipation Category: Medical (2) GERD (gastroesophageal reflux disease): Code(s): K21.9 - Gastro-esophageal reflux disease without esophagitis Category: Medical (3) Abdominal bloating: Code(s): R14.0 - Abdominal distension (gaseous) Category: Medical (4) Delayed gastric emptying: Comment: Confirmed GES Code(s): K30 - Functional dyspepsia Category: Medical (5) Tubular adenoma of colon: Comment: 2017 scope= TA repeat in 5 years Code(s): D12.6 - Benign neoplasm of colon, unspecified Category: Medical (6) Right upper quadrant abdominal pain: Comment: starts under breast, radiates to right LLQ (I review old records and she had a negative CT in 2019, 2014 normal xray of thoracic spine, 2017 colonoscopy with TA and 2017 and an EGD in 2018 with only mild gastritis. She does have extensive low back problems and an injury to C1 after a fall. She still has a GB. Extensive lab work only shows an elevated CRP and an A1c of 6.7% as abnormals. However thoracic and lumbar spine shows extensive spinal stenosis particularly of the thoracic spine so her right upper quadrant pain is most likely radiculopathy.) aeb her Code(s): R10.11 - Right upper quadrant pain Category: Medical Plan Romansh # She is here today with a female family member who is supportive. She is now doing well on the reglan and the protonix and simethicone, she is having absolutely no adverse effects. She has not been here because she had to have 2 more cardiac stents, she also is seeing EP for an irregular HB. She has been out of her meds for a month, so stomach is BAD! Will refill and she wants to change to [facility]. Can't consider scope until stents have stabilized along with inability to hold antiplatelet therapy. ROV 8 weeks. Medications: Refilled simethicone after meals 180 mg PO QID 120 caps 6RF 30 days R14.0 - Abdominal distension (gaseous) metoclopramide HCl (Reglan) 5 mg PO QIDACHS 120 tabs 6RF K30 - Functional dyspepsia pantoprazole 40 mg PO QAM 30 tabs 6RF COLONOSCOPY Waiting until she is cleared from Cardiology after stent placement BIOPSY TODAYS VISIT She is now taking the reglan 5mg qid and no a/e and it is controlling her GERD and GI conditions well. She also continues on the pantoprazole and simethicone. She is still waiting for EP studies to determine her cardiac clearance prior to scopes. ROV 6 mos. [facility] Medical History COVID-19 Palpitation Precordial chest pain Hemorrhoids Abdominal bloating Abdominal cramping Back pain Encounter for monitoring anti-arrhythmic therapy Fracture of proximal phalanx of right ring finger Syncope and collapse Acute non-ST elevation myocardial infarction (NSTEMI) Fracture of lesser tuberosity of right humerus Fracture of proximal end of right humerus Family history of ovarian cancer Early satiety COPD (chronic obstructive pulmonary disease) Cataract GUADALUPE (obstructive sleep apnea) Obesity (BMI 30-39.9) Hemorrhoids with complication GUADALUPE (obstructive sleep apnea) Hemorrhoids with complication NSVT (nonsustained ventricular tachycardia) PVC (premature ventricular contraction) Surgical History History of cardiac cath S/P cardiac catheterization History of coronary artery stent placement History of esophagogastroduodenoscopy (EGD) Hx of colonoscopy History of shoulder surgery (~04/29/18) History of lumbar laminectomy Family History Father Cardiovascular disease Mother Osteoarthritis Family/Other Ovarian cancer, Onset Age: 30 Social History Household Members: Spouse Alcohol intake: never Patient Tobacco Use Status: Never used Tobacco service: No Current occupational status: unemployed Current occupation: rt handed Review of Systems Const Denies fatigue, Denies fever(s), Denies night sweats, Denies poor appetite and Denies weight loss ENT Reports Normal hearing present, Denies dental pain, Denies dysphagia, Denies hearing loss, Denies mouth pain, Denies odynophagia, Denies throat swelling, Denies tongue swelling and Reports other (Dentition adequate) Card Reports chest pain Resp Reports no additional complaints GI Details: Denies abdominal pain, Denies melena, Denies bloating, Denies hematochezia, Reports constipation, Denies GI cramping, Denies dysphagia, Denies excessive flatus, Reports early satiety, Reports heartburn, Denies diarrhea, Reports nausea, Denies odynophagia, Denies vomiting and Denies hematemesis Skin/Breast Denies pruritus, Denies lesions, Denies rash and Denies jaundice Neuro Reports Normal hearing present and Denies Abnormal speech present Endo Denies fatigue Aller/Immun Denies throat swelling and Denies tongue swelling Physical Exam Vital Signs: Last Vital Signs Pulse 76 12/01/23 14:59 BP 141/72 H 12/01/23 14:59 BMI result Body Mass Index 35.2 Const General: cooperative, no acute distress, well developed and well groomed Nutritional Appearance: well nourished and obese Orientation/consciousness: oriented to person, oriented to place and oriented to time Limitations: language barrier HEENT Head: Yes normocephalic and Yes atraumatic Eyes General: appearance normal, both eyes and all related structures Pupils: Equal, round and reactive pupils present Neck Neck: Yes normal visual inspection and Yes no lymphadenopathy Thyroid: Thyroid normal Resp Effort & Inspection: normal respiratory effort and able to speak in complete sentences Auscultation: clear to auscultation bilaterally Cardio Rate: regular rate Rhythm: regular rhythm Heart sounds: Normal, physiologic split S2 sound present Peripheral pulses: radial pulses present and posterior tibial pulses present GI Inspection: No distended and No Abdominal panniculus present Palpation (GI): Soft to palpation, nontender, no guarding, not rigid and No hepatosplenomegaly present Percussion: Yes normal to percussion Auscultation: normal bowel sounds Rectal Exam - Female: deferred Skin General skin exam: no rashes or lesions noted, turgor normal, skin not dry, no jaundice, No spider nevi and no striae Rashes: no rashes Nails: normal Neuro General: oriented to person, oriented to place and oriented to time Cranial nerves: Yes Equal, round and reactive pupils present and Yes Normal hearing present Speech: No Abnormal speech present Extrem General: Yes normal to inspection, No clubbing, No cyanosis and No edema Psych Appearance: grossly normal and well kempt Mental Status: mental status grossly normal Speech and movement: Normal speech and movement present Affect: normal affect Attitude: cooperative Thought process: Normal thought process present and not confabulating Thought content: Normal thought content present Insight: Fair insight present (Psych) Judgement: Fair judgement present (Psych) Assessment & Plan Assessment & Plan (1) GERD (gastroesophageal reflux disease): Code(s): K21.9 - Gastro-esophageal reflux disease without esophagitis Category: Medical (2) Chronic idiopathic constipation: Code(s): K59.04 - Chronic idiopathic constipation Category: Medical Plan She is now taking the reglan 5mg qid and no a/e and it is controlling her GERD and GI conditions well. She also continues on the pantoprazole and simethicone. She is still waiting for EP studies to determine her cardiac clearance prior to scopes. ROV 6 mos. COLONOSCOPY Waiting until she is cleared from Cardiology after stent placement BIOPSY Medications: Refilled metoclopramide HCl (Reglan) 5 mg PO QIDACHS 120 tabs 6RF K30 - Functional dyspepsia pantoprazole 40 mg PO QAM 30 tabs 6RF simethicone after meals 180 mg PO QID 120 caps 6RF 30 days R14.0 - Abdominal distension (gaseous) Coding Level of Care Code Est Pt Level 3 (71726) Diagnoses GERD (gastroesophageal reflux disease) K21.9 Chronic idiopathic constipation K59.04
[2023-12-01 14:59] VITALS: BP 141/72; PULSE 76; BMI 35.2
== END 2023-12-01 15:50 | disposition home or self-care (01) ==
PROVIDERS: PCP Family Medicine; Visit Provider Nurse Practitioner
DX: K21.9 Gastro-esophageal reflux disease without esophagitis (principal); K59.04 Chronic idiopathic constipation
CPT/HCPCS: 99213

== ENCOUNTER → 2023-12-01 14:49 | Outpatient (BNVA) | payer MEDICARE, SELFPAY | PROVIDERS: PCP Family Medicine; Visit Provider Nurse Practitioner | DX: K59.04 Chronic idiopathic constipation (principal); K21.9 Gastro-esophageal reflux disease without esophagitis; Z79.899 Other long term (current) drug therapy | CPT/HCPCS: 99212 ==

== ENCOUNTER 2023-12-07 10:02 | Outpatient (REF) | payer MEDICARE, SELFPAY ==
[2023-12-07 11:54] LABS: MANUAL DIFF FLAG NO
[2023-12-07 12:07] LABS: Basophils Absolute Auto 0.1 X10*3/uL (0.0-0.2); Basophils Percent Auto 1.2 % (0-2); Eosinophils Absolute Auto 0.2 X10*3/uL (0.0-0.4); Eosinophils Percent Auto 2.7 % (0-4); Hematocrit 42.5 % (37.0-47.0); Hemoglobin 13.8 g/dl (12.0-16.0); Imm Gran Abs Auto 0.04 X10*3/uL (0.00-0.03); Imm Gran Pct Auto 0.5 % (0.0-0.4); Lymphocytes Absolute Auto 2.1 X10*3/uL (1.2-4.9); Lymphocytes Percent Auto 23.9 % (20-40); Mean Corpuscular HGB Conc 32.5 g/dl (31.0-35.0); Mean Corpuscular Hemoglobin 27.9 pg (27.0-33.0); Mean Corpuscular Volume 85.9 fL (80.0-98.0); Mean Platelet Volume 10.7 fL (9.4-12.3); Monocytes Absolute Auto 0.6 X10*3/uL (0.1-1.2); Neutrophils Absolute Auto 5.6 x10*3/uL (2.0-8.3); Neutrophils Percent Auto 64.7 % (45-73); Platelet Count 257 X10*3/uL (160-400); Red Blood Count 4.95 X10*6/uL (4.20-5.50); Red Cell Distribution Width 14.6 % (11.0-16.0); White Blood Count 8.6 X10*3/uL (4.8-10.8)
[2023-12-07 12:21] LABS: Anion Gap 13 (12-20); Blood Urea Nitrogen 21 mg/dL (9-16); Calcium 9.2 mg/dL (8.4-10.2); Carbon Dioxide 22 mmol/L (22-29); Chloride 108 mmol/L (96-108); Estimated Glomerular Filt Rate > 60; Glucose Random 163 mg/dL (60-115); Potassium 4.4 mmol/L (3.3-5.1); Sodium 139 mmol/L (135-145)
[2023-12-07 12:22] LABS: Anion Gap 11 (12-20); Blood Urea Nitrogen 21 mg/dL (9-16); Calcium 9.1 mg/dL (8.4-10.2); Carbon Dioxide 23 mmol/L (22-29); Chloride 109 mmol/L (96-108); Estimated Glomerular Filt Rate > 60; Glucose Random 163 mg/dL (60-115); Potassium 4.3 mmol/L (3.3-5.1); Sodium 139 mmol/L (135-145)
[2023-12-07 13:23] LABS: INTERNATIONAL NORM RATIO 0.9 (0.9-1.1); Prothrombin Time 11.4 SEC (11.1-13.3)
== END 2023-12-07 10:03 | disposition home or self-care (01) ==
LOC: HO.HHCL 10:02
PROVIDERS: Internal Medicine Cardiovascular Disease; Visit Provider Nurse Practitioner Family
DX: I49.3 Ventricular premature depolarization (principal)
CPT/HCPCS: 36415; 80048; 85025; 85610

== ENCOUNTER 2023-12-28 12:46 | Outpatient (AMB) | payer MEDICARE, SELFPAY ==
[2023-12-28 12:52] VITALS: BP 114/72; PULSE 77; BMI 34.8
--- NOTE | 2023-12-28 12:52 | A.OFFVIS_ITS ---
Vital Signs 12/28/23 12:52 Height 5 ft 3 in Weight 196 lb 10.437 oz BMI 34.8 BP 114/72 Blood Pressure Location Lt brachial Position Sitting Pulse 77 Pulse Source Pulse Oximeter Intake Visit Reasons: f/up and 2 wk s/p ablation at [facility] Projection Engineer Required: No Customer Support Professional: Customer Support Professional Present Allergies peanut Allergy (Severe, Verified 12/28/23 12:55) angioedema lisinopril [LISINOPRIL] Allergy (Intermediate, Verified 12/28/23 12:55) RASH, cough zoster vaccine live [SHINGLES VACCINE] Allergy (Intermediate, Verified 12/28/23 12:55) LOCALIZED REDNESS, SWELLING, FEVER,COUGH latex [LATEX] Allergy (Unknown, Verified 12/28/23 12:55) RASH pineapple [PINEAPPLE] Allergy (Unknown, Verified 12/28/23 12:55) RASH strawberry [STRAWBERRY] Allergy (Unknown, Verified 12/28/23 12:55) RASH adhesive Allergy (Verified 12/28/23 12:55) Blister Medication List - Last Reconciled 12/28/23 by TWAN Kaur albuterol sulfate 90 mcg/actuation (ProAir HFA) 2 puffs PO Q4H aspirin 81 mg PO DAILY 90 days atorvastatin 80 mg PO BEDTIME benzonatate 200 mg PO TID PRN 5 days budesonide-formoterol 160-4.5 mcg/actuation (Symbicort) 2 puffs inhalation BID clopidogrel 75 mg PO DAILY fluticasone propionate 50 mcg/actuation sprays intranasal hydrocortisone 1% [place] isosorbide mononitrate ER 60 mg PO DAILY lidocaine 5% 1 appl topical PRN loratadine 10 mg PO BEDTIME metoclopramide HCl (Reglan) 5 mg PO QIDACHS metoprolol succinate ER 75 mg (1.5 x 50 mg) PO QAM montelukast 10 mg PO BEDTIME nitroglycerin 0.4 mg sublingual Q5M PRN pantoprazole 40 mg PO QAM peg 3350-electrolytes 236-22.74-6.74 -5.86 gram (Golytely) 240 mL PO Q10M 1 day pregabalin (Lyrica) 50 mg PO BID simethicone 180 mg PO QID 30 days tiotropium bromide 1.25 mcg/actuation (Spiriva Respimat) 2 puffs inhalation DAILY HPI HPI f/up and 2 wk s/p ablation at [facility] Archie: Details: Araseli is a 68-year-old female with past medical history obesity, hyperlipidemia, PVCs, coronary artery disease, NSTEMI with occluded RCA then RCA stent, recurrent chest discomfort and underwent a cardiac catheterization receiving stent to the LAD. She again reported recurrent chest discomfort had abnormal nuclear stress test and cardiac catheterization with stent placed to the OM1. She recently underwent PVC ablation and now presents for follow-up. Today she reports she noticed less heart palpitations since her ablation. She has a follow-up later this week with Dr. Almanza. She will get periodic chest discomfort which happens randomly. Unlike discomfort she has had in the past prior to stents. No chest discomfort brought on by exertion. She has no concerning shortness of breath, presyncope, syncope, PND, orthopnea or edema. She has been doing light physical activity. She has not interested in cardiac rehab. Significant other is present. [facility] Medical History COVID-19 Palpitation Precordial chest pain Hemorrhoids Abdominal bloating Abdominal cramping Back pain Encounter for monitoring anti-arrhythmic therapy Fracture of proximal phalanx of right ring finger Syncope and collapse Acute non-ST elevation myocardial infarction (NSTEMI) Fracture of lesser tuberosity of right humerus Fracture of proximal end of right humerus Family history of ovarian cancer Early satiety COPD (chronic obstructive pulmonary disease) Cataract GUADALUPE (obstructive sleep apnea) Obesity (BMI 30-39.9) Hemorrhoids with complication GUADALUPE (obstructive sleep apnea) Hemorrhoids with complication NSVT (nonsustained ventricular tachycardia) PVC (premature ventricular contraction) Surgical History History of cardiac cath S/P cardiac catheterization History of coronary artery stent placement History of esophagogastroduodenoscopy (EGD) Hx of colonoscopy History of shoulder surgery (~04/29/18) History of lumbar laminectomy Family History Father Cardiovascular disease Mother Osteoarthritis Family/Other Ovarian cancer, Onset Age: 30 Social History Household Members: Spouse Alcohol intake: never Patient Tobacco Use Status: Never used Tobacco service: No Current occupational status: unemployed Current occupation: rt handed Review of Systems Const All systems reviewed & are unremarkable except as noted in HPI and below ENT Denies dizziness Card Details: less palpitation Denies chest pain, Denies chest pain at rest, Denies chest pain with activity, D enies rapid heart rate, Denies pedal edema, Denies edema, Denies leg edema, Denies lightheadedness, Denies palpitations, Denies dyspnea, Denies dyspnea on exertion and Denies orthopnea Resp Denies cough, Denies dyspnea and Denies dyspnea on exertion GI Denies hematochezia and Denies change in stool character Musc Denies abnormal gait, Denies limited range of motion, Denies muscle cramps, Denies muscle weakness, Denies numbness, Denies radiating pain into limb, Denies stiffness and Denies tingling Neuro Denies abnormal gait, Denies dizziness, Denies numbness and Denies tingling Endo Denies palpitations Physical Exam Vital Signs: Last Vital Signs Pulse 77 12/28/23 12:52 BP 114/72 12/28/23 12:52 BMI result Body Mass Index 34.8 Const General: cooperative, healthy appearing, comfortable and no acute distress Orientation/consciousness: patient oriented x3 Neck Neck: Yes normal visual inspection and Yes no JVD Resp Effort & Inspection: normal respiratory effort Auscultation: clear to auscultation bilaterally, no rales, no rhonchi and no wheezes Cardio Jugular venous distension: no JVD Rate: regular rate Rhythm: regular rhythm Heart sounds: S1 normal heart sound present, S2 normal heart sound present, no murmurs and no rubs Neuro General: patient oriented x3 Extrem Other: nontender left groin, mild tenderness to right groin General: Yes normal to inspection Psych Appearance: grossly normal Mental Status: mental status grossly normal Speech and movement: Normal speech and movement present Office Procedures EKG Details: Today, read by me, sinus rhythm with first-degree AV block, left bundle branch block, rate 74, QTC 495 millisecond (falsely prolonged from wide QRS) [id number], Complete Assessment & Plan Assessment & Plan (1) S/P ablation of ventricular arrhythmia: Comment: PVC ablation 12/15/23 Dr Almanza Code(s): Z98.890 - Other specified postprocedural states; Z86.79 - Personal history of other diseases of the circulatory system Category: Surgical Plan: Known history of frequent PVCs. Holter monitor done 10/08/2021 showed PVC burden 25%. She is on metoprolol. EKG done 07/21/2023 shows normal sinus rhythm with first-degree AV block, frequent PVCs, 5 PVCs noted on the tracing. She does report heart palpitations. Holter monitor done on 09/04/2023 shows sinus rhythm with average heart rate 87, PVCs 30% of the time, couplets and 3 beat runs. Echocardiogram done 10/13/2023 showed EF 50-55%, basal inferior and basal inferior lateral segments akinetic. She was referred to Dr. Almanza for electrophysiology and underwent a PVC ablation on 12/15/2023. Charge note reviewed and indicates a new left bundle branch block was present post ablation. She was monitored overnight with no evidence of heart block. Today she reports noticing less heart palpitations. EKG done today is showing sinus rhythm with first-degree AV block and left bundle branch block, rate 74. Will check a Holter monitor in a few weeks to assess for PVC burden. She has a follow-up with later this week. Cardiac MRI is still pending. Cardiology follow-up 3 months, sooner if needed (2) Frequent PVCs: Code(s): I49.3 - Ventricular premature depolarization Category: Medical Plan: As above (3) Atherosclerotic cardiovascular disease: Code(s): I25.10 - Atherosclerotic heart disease of [place] coronary artery without angina pectoris Category: Medical Plan: History of NSTEMI, 09/2021. Cardiac catheterization at that time showed occluded RCA, stents placed. Cardiac risks of obesity and hyperlipidemia. She then reported chest discomfort and underwent diagnostic cardiac catheterization on 12/25/2022 showing proximal LAD 85% stenosis, MOOK placed. She was known to have residual 1st OM and proximal left circumflex stenosis. On initial follow- up she report that her chest discomfort had resolved. Then on repeat visit she reported recurrent mid chest discomfort. Her isosorbide was increased with some improvement. She underwent a nuclear stress test on 09/08/2023 with findings of reversible defects suggestive of artifact. Due to her history she then underwent cardiac catheterization on 09/10/2023 showing OM1 90% stenosis, MOOK placed, ostial left circumflex 50% stenosis, patent stents in the RCA and LAD. At this point she still has some random, atypical discomfort. No symptoms like chest discomfort before stents. An echocardiogram was done on 10/13/2023 showing low normal EF basal inferior akinetic, unchanged from prior. Will have her continue on isosorbide 60 mg daily, Metoprolol xl 75 mg daily. Continue aspirin indefinitely. Plavix 75 mg daily uninterrupted for at least 1 year post most recent stent. Continue high-dose atorvastatin with ideal LDL goal less than 70. Labs done 11/05/2022 showed LDL 56. Signs and symptoms of angina discussed. Emergency care if ever needed for symptoms. (4) S/P cardiac catheterization: Comment: 12/25/2022, left main normal, proximal LAD 85% stenosis, stent placed, 1st OM 80% stenosis, proximal circumflex 50% stenosis, RCA stents patent 09/10/2023, RCA stent patent, lad stent patent, ostial left circumflex 50% stenosis, OM1 90% stenosis, MOOK placed Code(s): Z98.890 - Other specified postprocedural states Category: Surgical Plan: As above (5) History of cardiac cath: Comment: 09/21/2021 the left main normal, lad proximal 70% stenosis, 1st diagonal 50% stenosis, left circumflex proximal 60% stenosis, RCA mid 100% stenosis, 2 MOOK placed Code(s): Z98.890 - Other specified postprocedural states Category: Surgical Plan: As above (6) Precordial chest pain: Code(s): R07.2 - Precordial pain Category: Medical Plan: As above Plan Time spent with chart review, documentation, interview assessment Orders: Orders ECG 3 day holter monitor 2 Weeks I49.3 - Ventricular premature depolarization Coding Level of Care Code Est Pt Level 4 (83240) Diagnoses S/P ablation of ventricular arrhythmia Z98.890; Z86.79 Frequent PVCs I49.3 Atherosclerotic cardiovascular disease I25.10 S/P cardiac catheterization Z98.890 History of cardiac cath Z98.890 Precordial chest pain R07.2 CPT Codes EKG - CPT: [id number], Complete ([id number]) Time Spent (min) 30
== END 2023-12-28 13:22 | disposition home or self-care (01) ==
PROVIDERS: PCP Family Medicine; Visit Provider Nurse Practitioner Family
DX: Z98.890 Other specified postprocedural states (principal); Z86.79 Personal history of other diseases of the circulatory system; I49.3 Ventricular premature depolarization; I25.10 Atherosclerotic heart disease of native coronary artery without angina pectoris; R07.2 Precordial pain
CPT/HCPCS: 93010; 99214

== ENCOUNTER → 2023-12-28 12:46 | Outpatient (BNVA) | payer MEDICARE, SELFPAY | PROVIDERS: PCP Family Medicine; Visit Provider Nurse Practitioner Family | DX: R07.2 Precordial pain (principal); I49.3 Ventricular premature depolarization; I25.10 Atherosclerotic heart disease of native coronary artery without angina pectoris; I10 Essential (primary) hypertension; I44.0 Atrioventricular block, first degree; I44.7 Left bundle-branch block, unspecified; Z98.890 Other specified postprocedural states | CPT/HCPCS: 93005; 99212 ==

== ENCOUNTER → 2024-01-27 13:21 | Outpatient (REF) | payer MEDICARE, SELFPAY ==
--- NOTE | 2024-01-27 13:24 | HM_ITS ---
* Total monitoring time 3 days. * Underlying rhythm is sinus with an average rate of 83/Min. * Occasional ventricular ectopy with a burden of 1.2%. Rare couplets. * No significant pauses or high-grade AV blocks. * Patient markers used in association with sinus rhythm, sinus tachycardia, PVC. * Chest discomfort in patient diary correlates with sinus rhythm, PVC. MTDD
== END ==
LOC: HO.CARD 13:21
PROVIDERS: PCP Family Medicine; Visit Provider Nurse Practitioner Family
DX: I49.3 Ventricular premature depolarization (principal)
CPT/HCPCS: 93242

== ENCOUNTER → 2024-01-27 13:24 | Outpatient (BNV) | payer MEDICARE, SELFPAY | PROVIDERS: PCP Family Medicine; Visit Provider Internal Medicine | DX: I49.3 Ventricular premature depolarization (principal); R00.0 Tachycardia, unspecified | CPT/HCPCS: 93244 ==

== ENCOUNTER 2024-02-08 16:46 | Outpatient (REF) | payer MEDICARE, SELFPAY ==
[2024-02-08 17:40] LABS: Anion Gap 11 (12-20); Blood Urea Nitrogen 19 mg/dL (9-16); Calcium 9.4 mg/dL (8.4-10.2); Carbon Dioxide 23 mmol/L (22-29); Chloride 109 mmol/L (96-108); Estimated Glomerular Filt Rate > 60; Glucose Random 99 mg/dL (60-115); Potassium 3.9 mmol/L (3.3-5.1); Sodium 139 mmol/L (135-145)
== END 2024-02-08 16:47 | disposition home or self-care (01) ==
LOC: HO.LAB 16:46
PROVIDERS: PCP Family Medicine; Visit Provider Nurse Practitioner Family
DX: I47.20 Ventricular tachycardia, unspecified (principal)
CPT/HCPCS: 36415; 80048

== ENCOUNTER 2024-02-12 13:41 | Outpatient (REF) | payer MEDICARE, SELFPAY ==
--- NOTE | ~2024-02-12 | MM_ITS ---
EXAMINATION: MM SCREENING DIGITAL BREAST TOMOSYNTHESIS, BILATERAL CLINICAL INFORMATION: Screening. Asymptomatic. COMPARISON: Mammography: Comparison is made with available priors TECHNIQUE: Digital breast mammography with tomosynthesis is performed in both the craniocaudal and mediolateral oblique views along with computer-aided detection (CAD). FINDINGS: There are scattered areas of fibroglandular density (ACR BI-RADS breast composition Category b). There are no significant masses, abnormal calcifications, or other abnormalities. MM/MM tomosynthesis screening BI IMPRESSION: No mammographic evidence of malignancy. ASSESSMENT: BI-RADS BI-RADS 1 - Negative RECOMMENDATION: Routine annual mammography screening. 1 year F/U This examination should not preclude the clinical evaluation of a suspicious palpable abnormality. This patient's information was entered into a reminder system with a target due date for their next mammogram. Electronically signed by: Celine Mendez DO 02/22/2024 07:41 PM TUTU
== END 2024-02-12 13:42 | disposition home or self-care (01) ==
LOC: HO.MAMMO 13:41
PROVIDERS: PCP Family Medicine; Visit Provider Family Medicine
DX: Z12.31 Encounter for screening mammogram for malignant neoplasm of breast (principal)
CPT/HCPCS: 77063; 77067

== ENCOUNTER → 2024-02-12 14:00 | Outpatient (BNV) | payer MEDICARE, SELFPAY | PROVIDERS: PCP Family Medicine; Visit Provider Internal Medicine | DX: Z12.31 Encounter for screening mammogram for malignant neoplasm of breast (principal) | CPT/HCPCS: 77063; 77067 ==

== ENCOUNTER 2024-04-18 12:46 | Outpatient (AMB) | payer MEDICARE, SELFPAY ==
[2024-04-18 12:57] VITALS: BP 100/72; PULSE 88; BMI 33.9
--- NOTE | 2024-04-18 12:57 | A.OFFVIS_ITS ---
Vital Signs 04/18/24 12:57 Height 5 ft 3 in Weight 191 lb 5.78 oz BMI 33.9 BP 100/72 Blood Pressure Location Lt brachial Position Sitting Pulse 88 Pulse Source Pulse Oximeter Intake Visit Reasons: 4 mth f/up-holter/MRI [facility] Sales Developer Required: No Allergies peanut Allergy (Severe, Verified 04/18/24 12:59) angioedema lisinopril [LISINOPRIL] Allergy (Intermediate, Verified 04/18/24 12:59) RASH, cough zoster vaccine live [SHINGLES VACCINE] Allergy (Intermediate, Verified 04/18/24 12:59) LOCALIZED REDNESS, SWELLING, FEVER,COUGH latex [LATEX] Allergy (Unknown, Verified 04/18/24 12:59) RASH pineapple [PINEAPPLE] Allergy (Unknown, Verified 04/18/24 12:59) RASH strawberry [STRAWBERRY] Allergy (Unknown, Verified 04/18/24 12:59) RASH adhesive Allergy (Verified 04/18/24 12:59) Blister Medication List - Last Reconciled 04/18/24 by TWAN Kaur albuterol sulfate 90 mcg/actuation (ProAir HFA) 2 puffs PO Q4H aspirin 81 mg PO DAILY 90 days atorvastatin 80 mg PO BEDTIME benzonatate 200 mg PO TID PRN 5 days budesonide-formoterol 160-4.5 mcg/actuation (Symbicort) 2 puffs inhalation BID clopidogrel 75 mg PO DAILY fluticasone propionate 50 mcg/actuation sprays intranasal hydrocortisone 1% [place] isosorbide mononitrate ER 60 mg PO DAILY lidocaine 5% 1 appl topical PRN loratadine 10 mg PO BEDTIME metoclopramide HCl (Reglan) 5 mg PO QIDACHS metoprolol succinate ER 75 mg (1.5 x 50 mg) PO QAM nitroglycerin 0.4 mg sublingual Q5M PRN pantoprazole 40 mg PO QAM peg 3350-electrolytes 236-22.74-6.74 -5.86 gram (Golytely) 240 mL PO Q10M 1 day pregabalin (Lyrica) 50 mg PO BID semaglutide (Ozempic) mg subcut simethicone 180 mg PO QID 30 days tiotropium bromide 1.25 mcg/actuation (Spiriva Respimat) 2 puffs inhalation DAILY HPI HPI 4 mth f/up-holter/MRI [facility]: Details: Araseli is a 68-year-old female with past medical history obesity, hyperlipidemia, PVCs, coronary artery disease, NSTEMI with occluded RCA then RCA stent, recurrent chest discomfort and underwent a cardiac catheterization receiving stent to the LAD. She again reported recurrent chest discomfort had abnormal nuclear stress test and cardiac catheterization with stent placed to the OM1. She recently underwent PVC ablation, had follow-up Holter monitor and now presents for follow-up. Today she reports she has been doing well since her last visit in December. She is noticing only occasional heart palpitations which are brief. She says she has more energy to do things. She has not been getting chest discomfort. She has no concerning shortness of breath, presyncope, syncope, PND, orthopnea or edema. She has been trying to increase her physical activity. Significant other is present [facility] Medical History COVID-19 Palpitation Precordial chest pain Hemorrhoids Abdominal bloating Abdominal cramping Back pain Encounter for monitoring anti-arrhythmic therapy Fracture of proximal phalanx of right ring finger Syncope and collapse Acute non-ST elevation myocardial infarction (NSTEMI) Fracture of lesser tuberosity of right humerus Fracture of proximal end of right humerus Family history of ovarian cancer Early satiety COPD (chronic obstructive pulmonary disease) Cataract GUADALUPE (obstructive sleep apnea) Obesity (BMI 30-39.9) Hemorrhoids with complication GUADALUPE (obstructive sleep apnea) Hemorrhoids with complication NSVT (nonsustained ventricular tachycardia) PVC (premature ventricular contraction) Surgical History History of cardiac cath S/P cardiac catheterization History of coronary artery stent placement History of esophagogastroduodenoscopy (EGD) Hx of colonoscopy History of shoulder surgery (~04/29/18) History of lumbar laminectomy Family History Father Cardiovascular disease Mother Osteoarthritis Family/Other Ovarian cancer, Onset Age: 30 Social History Household Members: Spouse Alcohol intake: never Patient Tobacco Use Status: Never used Tobacco service: No Current occupational status: unemployed Current occupation: rt handed Review of Systems Const All systems reviewed & are unremarkable except as noted in HPI and below ENT Denies dizziness Card Denies chest pain, Denies chest pain at rest, Denies chest pain with activity, Denies rapid heart rate, Denies pedal edema, Denies edema, Denies leg edema, Denies lightheadedness, Denies palpitations, Denies dyspnea, Denies dyspnea on exertion and Denies orthopnea Resp Denies cough, Denies dyspnea and Denies dyspnea on exertion GI Denies hematochezia and Denies change in stool character Musc Denies abnormal gait, Denies limited range of motion, Denies muscle cramps, Denies muscle weakness, Denies numbness, Denies radiating pain into limb, Denies stiffness and Denies tingling Neuro Denies abnormal gait, Denies dizziness, Denies numbness and Denies tingling Endo Denies palpitations Physical Exam Vital Signs: Last Vital Signs Pulse 88 04/18/24 12:57 BP 100/72 04/18/24 12:57 BMI result Body Mass Index 33.9 Const General: cooperative, healthy appearing, comfortable and no acute distress Orientation/consciousness: patient oriented x3 Neck Neck: Yes normal visual inspection and Yes no JVD Resp Effort & Inspection: normal respiratory effort Auscultation: clear to auscultation bilaterally, no rales, no rhonchi and no wheezes Cardio Jugular venous distension: no JVD Rate: regular rate Rhythm: regular rhythm Heart sounds: S1 normal heart sound present, S2 normal heart sound present, no murmurs and no rubs Neuro General: patient oriented x3 Extrem Other: nontender left groin, mild tenderness to right groin General: Yes normal to inspection Psych Appearance: grossly normal Mental Status: mental status grossly normal Speech and movement: Normal speech and movement present Assessment & Plan Assessment & Plan (1) S/P ablation of ventricular arrhythmia: Comment: PVC ablation 12/15/23 Dr Almanza Code(s): Z98.890 - Other specified postprocedural states; Z86.79 - Personal history of other diseases of the circulatory system Category: Surgical Plan: Known history of frequent PVCs. Holter monitor done 10/08/2021 showed PVC burden 25%. She has been on metoprolol. Holter monitor done on 09/04/2023 shows sinus rhythm with average heart rate 87, PVCs 30% of the time, couplets and 3 beat runs. Echocardiogram done 10/13/2023 showed EF 50-55%, basal inferior and basal inferior lateral segments akinetic. She was referred to Dr. Almanza for electrophysiology and underwent a PVC ablation on 12/15/2023. Discharge note reviewed and indicates a new left bundle branch block was present post ablation. She was monitored overnight with no evidence of further heart block. Holter monitor done on 01/27/2024 for 3 days shows sinus rhythm with average heart rate 83, occasional PVCs, 1.2% of time. Today she reports she has been feeling much better overall. She is noticing only brief palpitations. She is describing more energy. Cardiac MRI done on 02/10/2024 showed EF 50%, T1 mapping shows no abnormality, no increase in T2 signal to suggest myocardial edema and no delayed gadolinium enhancement. Test results reviewed with her. No MRI findings to indicate cause of frequent PVCs. At this time will have her continue on metoprolol. Instructed to call if she has symptoms of increasing heart palpita tions. Cardiology follow-up 6 months, sooner if needed. (2) Frequent PVCs: Code(s): I49.3 - Ventricular premature depolarization Category: Medical Plan: As above (3) Atherosclerotic cardiovascular disease: Code(s): I25.10 - Atherosclerotic heart disease of [place] coronary artery without angina pectoris Category: Medical Plan: History of NSTEMI, 09/2021. Cardiac catheterization at that time showed occluded RCA and stents placed. Cardiac risks of obesity and hyperlipidemia. She then reported chest discomfort and underwent diagnostic cardiac catheterization on 12/25/2022 showing proximal LAD 85% stenosis, MOOK placed. She was known to have residual 1st OM and proximal left circumflex stenosis. On initial follow-up she report that her chest discomfort had resolved. Then on repeat visit she reported recurrent mid chest discomfort. Her isosorbide was increased with some improvement. She underwent a nuclear stress test on 09/08/2023 with findings of reversible defects suggestive of artifact. Due to her history she then underwent cardiac catheterization on 09/10/2023 showing OM1 90% stenosis, MOOK placed, ostial left circumflex 50% stenosis, patent stents in the RCA and LAD. An echocardiogram was done on 10/13/2023 showing low normal EF basal inferior akinetic, unchanged from prior. At this point she says she has been doing good with no recent chest discomfort. She is feeling better post PVC ablation. She has no chest discomfort with exertion. Will have her continue on isosorbide 60 mg daily, Metoprolol xl 75 mg daily. Continue aspirin indefinitely. Plavix 75 mg daily can be stopped at this time as it is over 1 year since her last coronary stent. Continue high-dose atorvastatin with ideal LDL goal less than 70. Labs done 11/05/2022 showed LDL 56. Updated lipid profile should be done. Signs and symptoms of angina discussed. (4) S/P cardiac catheterization: Comment: 12/25/2022, left main normal, proximal LAD 85% stenosis, stent placed, 1st OM 80% stenosis, proximal circumflex 50% stenosis, RCA stents patent 09/10/2023, RCA stent patent, lad stent patent, ostial left circumflex 50% stenosis, OM1 90% stenosis, MOOK placed Code(s): Z98.890 - Other specified postprocedural states Category: Surgical Plan: As above (5) History of cardiac cath: Comment: 09/21/2021 the left main normal, lad proximal 70% stenosis, 1st diagonal 50% stenosis, left circumflex proximal 60% stenosis, RCA mid 100% stenosis, 2 MOOK placed Code(s): Z98.890 - Other specified postprocedural states Category: Surgical Plan: As above Plan Time spent with chart review, documentation, interview assessment Medications: Discontinued clopidogrel Discontinued Reason: Doctor's Order 75 mg PO DAILY 90 tabs 1RF Coding Level of Care Code Est Pt Level 4 (29720) Complex EM visit Add On G2211 Diagnoses S/P ablation of ventricular arrhythmia Z98.890; Z86.79 Frequent PVCs I49.3 Atherosclerotic cardiovascular disease I25.10 S/P cardiac catheterization Z98.890 History of cardiac cath Z98.890 Time Spent (min) 28
== END 2024-04-18 13:21 | disposition home or self-care (01) ==
PROVIDERS: PCP Family Medicine; Visit Provider Nurse Practitioner Family
DX: Z98.890 Other specified postprocedural states (principal); Z86.79 Personal history of other diseases of the circulatory system; I49.3 Ventricular premature depolarization; I25.10 Atherosclerotic heart disease of native coronary artery without angina pectoris
CPT/HCPCS: 99214; G2211

== ENCOUNTER → 2024-04-18 12:46 | Outpatient (BNVA) | payer MEDICARE, SELFPAY | PROVIDERS: PCP Family Medicine; Visit Provider Nurse Practitioner Family | DX: I25.10 Atherosclerotic heart disease of native coronary artery without angina pectoris (principal); I49.3 Ventricular premature depolarization; Z98.890 Other specified postprocedural states; Z86.79 Personal history of other diseases of the circulatory system | CPT/HCPCS: 99212 ==

== ENCOUNTER 2024-05-20 13:30 | Outpatient (RCR) | payer MEDICARE, OTHER, SELFPAY | END 2024-05-20 14:58 | disposition home or self-care (01) | LOC: HO.CR 13:30 | PROVIDERS: PCP Family Medicine; Visit Provider Nurse Practitioner Family | DX: Z95.5 Presence of coronary angioplasty implant and graft (principal); Z98.890 Other specified postprocedural states | CPT/HCPCS: 93797; 93798 ==

== ENCOUNTER 2024-06-07 10:43 | Outpatient (REF) | payer MEDICARE, OTHER, SELFPAY ==
[2024-06-07 12:24] LABS: Alanine Aminotransferase 21 U/L (0-31); Albumin Level 3.8 g/dL (3.5-5.0); Aspartate Amino Transferase 25 U/L (5-31); Bilirubin Direct 0.2 mg/dL (0.0-0.5); Bilirubin Total 0.5 mg/dL (0.0-1.0); Cholesterol 121 mg/dL (<200); HDL Cholesterol 44 mg/dL (>40); LDL Cholesterol Calculated 56 mg/dL (<100); Total Protein 6.9 g/dL (6.5-8.0); Triglycerides 106 mg/dL (<150)
[2024-06-07 12:30] LABS: Creatinine Urine 93.36 mg/dL; Microalbumin Urine < 5.0 mg/L
--- OUTSIDE RECORDS SUMMARY | 2024-06-07 12:50 | XMS_ITS | Encounter Summary ---
Author Organization [employer] Address [address] [facility] 7t [place] [address] Care Team Providers Care Oil Expeller Operator Name Role Phone Jenny Vázquez MD Primary Care Provider [phone] Encounter Details Date Type Department Care Team (Late st Contact Info) Description 06/06/2024 3:15 PM EST Office Visit [facility] [address] [place] [address] Jenny Vázquez MD [address] [place] [address] Primary hypertension (Primary Dx); Obstructive sleep apnea syndrome; Type 2 diabetes mellitus without complication, without long-term current use of insulin (CMS/HCC); Fibromyalgia; Dyslipidemia; Ischemic heart disease; Nonsustained ventricular tachycardia (CMS/HCC); Moderate persistent asthma without complication; Tubular adenoma of colon; Gastroesophageal reflux disease, unspecified whether esophagitis present; Left upper quadrant pain Social History Tobacco Use Types Packs/Day Years Used Date Smoking Tobacco: Never Passive Smoke Exposure: Never Smokeless Tobacco: Never Alcohol Use Standard Drinks/Week Comments Never 0 (1 standard drink = 0.6 oz pur e alcohol) Depression Answer Date Recorded Patient Health Questionnaire-9 Score 16 05/03/2024 Patient Health Questionnaire-9 Score 16 05/03/2024 Last PHQ-9: Questionnaire Data Not on file 0 05/03/2024 Housing Stability Answer Date Recorded What is your housing situation today? I have sarika sing 02/08/[address] you li ve. Do you have problems with any of the following? None of the above 02/08/2024 Food Insecurity Answer Date Recorded Within the past 12 months, y ou worried that your food would run out before you got money to buy more: Never True 02/08/2024 Within the past 12 months,th e food you bought just didn't last and you didn't have enough money to get more: Never True Transportation Answer Date Recorded In the past 12 months, has l ack of transportation kept you from medical appts, meetings, work or from getting things needed for daily living? No 02/08/2024 Utilities Answer Date Recorded In the past 12 months, has t he electric, gas, oil or water company threatened to shut off services in your home? No 02/08/2024 Depression Answer Date Recorded Patient Health Questionnaire-2 Score 6 05/03/2024 Internet Access Answer Date Recorded Internet Access Q1 Yes 02/08/2024 Internet Access Q2 Not on file 02/08/2024 Comments Unknown Sex and Gender Information Value Date Recorded Sex Assigned at Female 02/10/2022 10:20 AM EDT Legal Sex Female 10:20 AM EDT Gender Identity Female 02/10/2022 10:20 AM EDT Sexual Orientation Straight 02/10/2022 10 :20 AM EDT documented as of this encounter Last Filed Vital Signs Vital Sign Reading Time Taken Comments Blood Pressure 111/67 06/06/2024 3:25 PM EST Pulse 76 06/06/2024 3:25 PM EST Temperature 36.1 ??C (96.9 ??F) 06/06/2024 3:25 PM ES T Respiratory Rate 18 06/06/2024 3:25 PM EST Oxygen Saturation 97% 06/06/2024 3:25 PM EST Inhaled Oxygen Concentration - - Weight 86.7 kg (191 lb 3.2 oz) 06/06/2024 3:25 P M EST Height 158.6 cm (5' 2.45 ) 06/06/2024 3:25 PM ES T Body Mass Index 34.47 06/06/2024 3:25 PM EST documented in this encounter Miscellaneous Notes * Assessment & Plan Note - David Puga - 06/06/2024 3:29 PM ESTAssociated Problem(s): Dyslipidemia Last lipid profile: 11/05/22 TC 118; TG 76; HDL 47; LDL 56 Current medication: atorvastatin 80 mg qhs Tx Hx: -Pt previously c/o myalgia using atorvastatin which was changed to pravastatin, switched back to atorvastatin d/t NSTEMI and tolerating at this time * Assessment & Plan Note - David Puga - 06/06/2024 3:29 PM ESTAssociated Problem(s): Type 2 diabetes mellitus (CMS/HCC) A1c 6.3 today 06/06/24, trending down -No longer taking metformin. -Discussed about restarting it if her glycemic control continues to worsen. -Avoid / prevent getting systemic steroids for her allergy and asthma. -Continue lifestyle modification. -Start Semaglutide -Continue SMBG. -Last eye exam: Feb 2023, next appointment on 03/01/24 -Last foot exam: 08/05/22, plantar fasciitis, ingrown toenail, sees gum rolling machine tender. -Last microalbumin test: 11/05/22 UACR 4.9; -Last lipid profile: 11/05/22 TC 118; TG 76; HDL 47; LDL 56 -Last dental exam: up-to-date; upcoming in APR 2022 * Assessment & Plan Note - David Puga - 06/06/2024 3:28 PM ESTAssociated Problem(s): Fibromyalgia Followed by Swimming Instructor -Continue Lyrica, use judiciously -Continue staying active * Assessment & Plan Note - David Puga - 06/06/2024 3:28 PM ESTAssociated Problem(s): Tubular adenoma of colon - last colonoscopy in 2017, tubular adenoma, recommended to have colonoscopy in 5 years - need for at least 1 year of uninterrupted dual antiplatelet therapy post- stent, colonoscopy is being postponed. * Assessment & Plan Note - David Puga - 06/06/2024 3:28 PM ESTAssociated Problem(s): GERD (gastroesophageal reflux disease) Continue pantoprazole (Pt is taking clopidogrel) Minimize NSAIDs use Will refer to GI Specialist * Assessment & Plan Note - David Puga - 06/06/2024 3:28 PM ESTAssociated Problem(s): Hypertension <140/90 per JNC-8, < 130/80 per ACC/AHA - BP at goal -Continue Metoprolol 100 mg daily -Continue Lifestyle modifications -Continue monitoring BP at home -Previously tried ARB, ACEI, and HCTZ -Discontinued ACEI due to cough -Follow up in 3-6 mo or sooner prn * Assessment & Plan Note - David Puga - 06/06/2024 3:27 PM ESTAssociated Problem(s): Obstructive sleep apnea syndrome - distributing clerk changed mask for nasal pillow per patient's request in May 2023 - recommended CPAP use * Assessment & Plan Note - Jenny Vázquez MD - 06/06/2024 3:23 PM ESTAssociated Problem(s): Nonsustained ventricular tachycardia (CMS/HCC) - previously on Fleicanide, which was changed to metoprolol after NSTEMI and PCI - PVC ablation on 12/15/23 - Holter monitor done on 01/27/2024 for 3 days shows sinus rhythm with average heart rate 83, occasional PVCs, 1.2% of time. - Cardiac MRI done on 02/10/2024 showed EF 50%, T1 mapping shows no abnormality, no increase in T2 signal to suggest myocardial edema and no delayed gadolinium enhancement. No MRI findings to indicate cause of frequent PVCs. * Assessment & Plan Note - Jenny Vázquez MD - 06/06/2024 3:21 PM ESTAssociated Problem(s): Ischemic heart disease -Compliance Consultant: [facility], Dr. Cesar and Janna Cruz NP, last seen on 04/18/24 - NSTEMI in September 2021 - s/p MOOK to RCA in September 2021, mild LAD and LCx disease which are medically treated - s/p MOOK to LAD in Dec 2022 - s/p MOOK to OM1 in August 2023 - TTE on 07/21/22 low normal LV systolic function with mild LVH with LVEF 50-55% with mimpaired relaxation and filling pattern; mild mitral regurgitation; normal RV systolic pressure - Treatment history: Clopidogrel was discontinued when she was last seen by powerhouse mechanic in Apr 2024. -Continue Metoprolol, ASA and Atorvastatin -Continue isosorbide -Cont working on lifestyle modifications. * Assessment & Plan Note - Jenny Vázquez MD - 06/06/2024 6:25 AM ESTAssociated Problem(s): Asthma - Previously followed by Allergy / testing specialist : Dr. Ahn - Seen by new distributing clerk at [facility] [place] in May 2023 - No history of intubation, Hx pneumonia and influenza in Apr 2018 - Severe exacerbation 1 or 2 times / year - Last exacerbation in Mar 2024, Rx prednisone, doxycycline. - Continue Symbicort and Singulair as maintenance. - Continue albuterol HFA / neb prn as rescue. documented in this encounter Plan of Treatment Not on file documented as of this encounter Procedures Procedure Name Priority Date/Time Associated Diagnosis Comments POCT GLYCOSYLATED HEMOGLOBIN (HGB A1C) Routine 06/06/2024 3:30 PM EST Type 2 diabetes mellitus without complication, without long-term current use of insulin ([facility]) POCT GLUCOSE Routine 06/06/2024 3:30 PM EST Type 2 diabetes mellitus without complication, without long-term current use of insulin ([facility]) documented in this encounter Results * (ABNORMAL) POCT glycosylated hemoglobin (Hgb A1c) (06/06/2024 3:30 PM EST) Hemoglobin A1C 6.3(A) 4.0 - 6.0 % QC Media Lot # [id number] Lot# Expiration Date Blood Capillary blood specimen / Unknown 06/06/2024 3:30 PM EST Jenny Vázquez MD POINT OF CARE TEST ENTER/EDIT OR DERABLES Final Result * POCT glucose manually resulted (06/06/2024 3:30 PM EST) Glucose Blood, POC 110 60 - 200 mg/dL QC Media Lot # [id number] Lot# Expiration Date Blood Capillary blood specimen / Unknown 06/06/2024 3:30 PM EST Jenny Vázquez MD POINT OF CARE TEST ENTER/EDIT OR DERABLES Final Result documented in this encounter Visit Diagnoses Diagnosis Primary hypertension- Primary Unspecified essential hypertension Obstructive sleep apnea syndrome Obstructive sleep apnea (adult) (pediatric) Type 2 diabetes mellitus without complication, without long-term current use of insulin ([facility]) Fibromyalgia Unspecified myalgia and myositis Dyslipidemia Other and unspecified hyperlipidemia Ischemic heart disease Other specified forms of chronic ischemic heart disease Nonsustained ventricular tachycardia ([facility]) Moderate persistent asthma without complication Tubular adenoma of colon Benign neoplasm of colon Gastroesophageal reflux disease, unspecified whether esophagitis present Left upper quadrant pain Abdominal pain, left upper quadrant documented in this encounter Additional Health Concerns Assessment Noted Time PHQ-9 Depression Total Score: 16 025 2:05 PM EST documented as of this encounter Care Teams Oil Expeller Operator Relationship Specialty Start Date End Date Jenny Vázquez MD [address] [place] [phone] PCP - General Family Medicine 04/13/18 documented as of this encounter
--- OUTSIDE RECORDS SUMMARY | 2024-06-07 12:50 | XMS_ITS | Encounter Summary ---
Author Organization [employer] Address [address] [facility] 7t [place] [address] Care Team Providers Care Legal Analyst Name Role Phone Jenny Vázquez MD Primary Care Provider Encounter Details Date Type Department Care Team (Late st Contact Info) Description 10/31/2022 Abstract [facility] [address] [place] [address] Jenny Vázquez MD [address] [place] [address] Social History Tobacco Use Types Packs/Day Years Used Date Smoking Tobacco: Never Passive Smoke Exposure: Never Smokeless Tobacco: Never Depression Answer Date Recorded Patient Health Questionnaire-9 Score 0 10/21/2022 Depression Answer Date Recorded Patient Health Questionnaire-2 Score 0 10/21/2022 Comments Unknown Sex and Gender Information Value Date Recorded Sex Assigned at Female 02/10/2022 10:20 AM EDT Legal Sex Female 10:20 AM EDT Gender Identity Female 02/10/2022 10:20 AM EDT Sexual Orientation Straight 02/10/2022 10 :20 AM EDT COVID-19 Exposure Response Date Recorded In the last 10 days, have gilbert samano been in contact with someone who was confirmed or suspected to have Coronavirus/COVID-19? No / Unsure 10/21/2022 1:03 PM EDT documented as of this encounter Plan of Treatment Not on file documented as of this encounter Procedures Procedure Name Priority Date/Time Associated Diagnosis Comments PAP/HPV Routine 10/02/2022 documented in this encounter Results * Pap Smear (10/02/2022) Pap Negative for intraephithelial lesion or malignancy Negative for intraephithelial lesion or malignancy, Other HPV Undetected Result [facility] Pcp HEALTH MAINTENANCE Final Result documented in this encounter Visit Diagnoses Not on filedocumented in this encounter Additional Health Concerns Assessment Noted Time PHQ-9 Depression Total Score: 0 10/22/19 23 1:17 PM EDT documented as of this encounter Care Teams Legal Analyst Relationship Specialty Start Date End Date Jenny Vázquez MD [address] [place] [address] PCP - General Family Medicine 04/13/18 documented as of this encounter
--- OUTSIDE RECORDS SUMMARY | 2024-06-07 12:50 | XMS_ITS | Encounter Summary ---
Author Organization [employer] Address [address] [facility] 7t [place] [address] Care Team Providers Care Speech Language Pathologist Assistant Name Role Phone Jenny Vázquez MD Primary Care Provider [phone] Encounter Details Date Type Department Care Team (Latest Contact Info) Description 06/06/2024 Travel Social History Tobacco Use Types Packs/Day Years [...] your housing situation today? I have sarika piedra 02/08/[address] you li [...] AM EDT documented as of this encounter Plan of Treatment Not on file documented as of this encounter Visit Diagnoses Not on filedocumented in this encounter Additional Health Concerns Assessment Noted Time PHQ-9 Depression Total Score: 16 025 2:05 PM EST documented as of this encounter Care Teams Speech Language Pathologist Assistant Relationship Specialty Start Date End Date Jenny Vázquez MD [address] [place] [id number] PCP - General Family Medicine 04/13/18 documented as of this encounter
--- OUTSIDE RECORDS SUMMARY | 2024-06-07 12:50 | XMS_ITS | Encounter Summary ---
Author Organization [employer] Address [address] [facility] 7t [place] [address] Care Team Providers Care Button Clamper Name Role Phone Jenny Vázquez MD Primary Care Provider [phone] Encounter Details Date Type Department Care Team (Late st Contact Info) Description 04/29/2022 Orders Only [facility] [address] [place] [address] Lorraine Arroyo LPN Social History Tobacco Use Types Packs/Day Years Used Date Smoking Tobacco: Never Assessed Comments Unknown Sex and Gender Information Value [...] suspected to have Coronavirus/COVID-19? No / Unsure 04/21/2022 4:39 PM EST documented as of this encounter Plan of Treatment Not on file documented as of this encounter Procedures Procedure Name Priority Date/Time Associated Diagnosis Comments LIPID PANEL, STANDARD Routine 11/05/2022 8:43 AM EDT PAP SMEAR Routine 10/02/2022 3:36 PM EDT documented in this encounter Results * Lipid Panel, Standard (11/05/2022 8:43 AM EDT) Triglycerides 76 mg/dL [facility] Comment:Desirable Triglyceri de: less than 150 mg/dLBorderline High Triglyceride 150-199 mg/dLHigh Triglyceride: 200-499 mg/dLVery High Triglyceride: greater than or equal to 5OO mg/dL Cholesterol 118 mg/dL [facility] Comment:Desirable Cholestero l: less than 200 mg/dLBorderline High Cholesterol: 200-239 mg/dLHigh Cholesterol: greater than 239 mg/dL LDL Cholesterol Calculated 56 mg/dl [facility] Comment:Desirable LDL: less than 100 mg/dLNear Optimal/Above Optimal LDL: 110- 129 mg/dLBorderline High LDL: 130-159 mg/dLHigh LDL: 160-189 mg/dLVery High LDL: greater than or equal to 190 mg/dL HDL Cholesterol 47 mg/dL [facility] Comment:Desirable HDL: great er than 40 mg/dL Note: This HDL assay may give artificially low results in patients with liver disease. 11/05/2022 8:43 AM EDT 11/05/2022 11:40 AM EDT us Jenny Vázquez MD LAB BLOOD ORDERABLES Final Resul t [facility] [address] [place] [phone] * Pap Smear (10/02/2022 3:36 PM EDT) 10/02/2022 3:36 PM EDT 10/06/2022 12:00 PM EDT Narrative [facility] - 10/27/2022 10:49 AM EDT ----- ------- Name: Araseli Leary ?Age/Sex: 67/F ? : 1955 Unit#: [id number] ?? Attend Dr: Argentina Mak CNM ?Re10/02/22 ?Status: DEP REF ? Location: HO.LNP ?Disch: ? ----- ------- SPEC : [id number] ? RECD: 10/06/22-1200 ? STATUS: ??SOUT ? REQ NUM: [id number] ? TODD: 10/02/22-1276 ? SUBM DR: Argentina Mak CNM ? ENTERED: ??10/06/22-8520 ?SP TYPE: Pap Smr ?OTHR DR: Jenny Vázquez MD ? ORDERED: ??Pap Smear ? Interpretation ?? Satisfactory for evaluation. ?? Negative for intraepithelial lesion or malignancy. ? HPV mRNA E6/E7: ?NOT DETECTED ? This assay detects E6/E7 viral messenger RNA (mRNA) from 14 high-risk HPV types (16, 18, ?? 31, 33, 35, 39, 45, 51, 52, 56, 58, 59, 66, 68) ? HPV testing performed by [facility], [place], [place]. ??See reference laboratory ?? portion of the EMR for entire report. ?Clinical Information LMP: Menopausal Previous PAP test: 2018, ASCUS ? Material Received ?? ThinPrep-Cervical Copies To: ?? Argentina Mak CNM ?? [address] [facility] ?? [place] [address] ?? [phone] ?? Jenny Vázquez MD ?? [address] [facility] ?? [place] [address] ?? ----- ------- Signed (signature on file) Berlin Rodriguez MD 10/27/22 0389 ? ----- ------- ? END OF REPORT ? us [employer] External Provider LAB CYT OLOGY ORDERABLES Final Result [facility] [address] [place] [address] [phone] documented in this encounter Visit Diagnoses Not on filedocumented in this encounter Care Teams Button Clamper Relationship Specialty Start Date End Date Jenny Vázquez MD [address] [place] [phone] PCP - General Family Medicine 04/13/18 documented as of this encounter
--- OUTSIDE RECORDS SUMMARY | 2024-06-07 12:51 | XMS_ITS | Encounter Summary ---
Author Organization [employer] Address [address] [facility] 7t [place] [address] Care Team Providers Care Hand Pattern Marker Name Role Phone Jenny Vázquez MD Primary Care Provider [phone] Reason for Visit * Reason Onset Date Comments Med Refill 06/08/2023 Encounter Details Date Type Department Care Team (Late st Contact Info) Description 06/08/2023 Refill [facility] MEDICINE [address] [place] [address] Loyda Clark MD [address] [place] [address] Fibromyalgia Social History Tobacco Use Types Packs/Day Years Used Date Smoking Tobacco: Never Passive Smoke Exposure: Never Smokeless Tobacco: Never Alcohol Use Standard Drinks/Week Comments Never 0 (1 standard drink = 0.6 oz pur e alcohol) Depression Answer Date Recorded Patient Health Questionnaire-9 Score 0 10/21/2022 Housing Stability Answer Date Recorded What is your housing situation today? I have sarika piedra 01/25/[address] you li ve. Do you have problems with any of the following? None of the above 01/25/2023 Food Insecurity Answer Date Recorded Within the past 12 months, y ou worried that your food would run out before you got money to buy more: Never True 01/25/2023 Within the past 12 months,th e food you bought just didn't last and you didn't have enough money to get more: Never True Transportation Answer Date Recorded In the past 12 months, has l ack of transportation kept you from medical appts, meetings, work or from getting things needed for daily living? No 01/25/2023 Utilities Answer Date Recorded In the past 12 months, has t he electric, gas, oil or water company threatened to shut off services in your home? No 01/25/2023 Depression Answer Date Recorded Patient Health Questionnaire-2 [...] documented as of this encounter Visit Diagnoses Diagnosis Fibromyalgia Unspecified myalgia and myositis documented in this encounter Additional Health Concerns Assessment Noted Time PHQ-9 Depression Total Score: 0 10/22/19 23 1:17 PM EDT documented as of this encounter Care Teams Hand Pattern Marker Relationship Specialty Start Date End Date Jenny Vázquez MD [address] [place] [phone] PCP - General Family Medicine 04/13/18 documented as of this encounter
--- OUTSIDE RECORDS SUMMARY | 2024-06-07 12:51 | XMS_ITS | Encounter Summary ---
Author Organization [employer] Address [address] [facility] 7t [place] [address] Care Team Providers Care Sling Operator Name Role Phone Jenny Vázquez MD Primary Care Provider [phone] Encounter Details Date Type Department Care Team (Late st Contact Info) Description 03/10/2023 Abstract [facility] D[facility] [address] [place] [address] Nathanael Crespo DDS [address] [place] [address] Social History Tobacco Use Types Packs/Day Years [...] documented as of this encounter Care Teams Sling Operator Relationship Specialty Start Date End Date Jenny Vázquez MD [address] [place] [phone] PCP - General Family Medicine 04/13/18 documented as of this encounter
--- OUTSIDE RECORDS SUMMARY | 2024-06-07 12:51 | XMS_ITS | Encounter Summary ---
Author Organization [email or web address] Address [address] [facility] [address]t [place] [address] Care Team Providers Care Medical Technologist Generalist Name Role Phone Jenny Vázquez MD Primary Care Provider Reason for Visit * Reason Onset Date Comments Chart Prep 06/01/2024 Encounter Details Date Type Department Care Team (Late st Contact Info) Description 06/01/2024 Telephone [facility] MEDICINE [address] [place] [address] Jenny Vázquez MD [address] [place] [address] Chart Prep Social History Tobacco Use Types Packs/Day Years [...] AM EDT documented as of this encounter Miscellaneous Notes * Telephone Encounter - Delphine Kay [place] - 06/01/2024 11:15 AM EST Chart Prep Labs: not done Images: not applicable Vaccines due: Covid Due, RSV in Pharmacy Due, and Shingles in pharmacy Due Referrals: Not Applicable Screenings: Foot Exam Overdue care gaps: A1C and Glucose documented in this encounter Plan of Treatment Not on file documented as of this encounter Visit Diagnoses Not on filedocumented in this encounter Additional Health Concerns Assessment Noted Time PHQ-9 Depression Total Score: 16 025 2:05 PM EST documented as of this encounter Care Teams Medical Technologist Generalist Relationship Specialty Start Date End Date Jenny Vázquez MD [address] [place] [address] PCP - General Family Medicine 04/13/18 documented as of this encounter
--- OUTSIDE RECORDS SUMMARY | 2024-06-07 12:51 | XMS_ITS | Encounter Summary ---
Author Organization [employer] Address [address] [facility] 7t [place] [address] Care Team Providers Care Social Work Administrator Name Role Phone Jenny Vázquez MD Primary Care Provider Encounter Details Date Type Department Care Team (Late st Contact Info) Description 03/09/2023 Abstract [facility] ADULT D[facility] [address] [place] [address] Nathanael Crespo DDS [address] [place] [address] Social History Tobacco Use Types Packs/Day Years [...] documented as of this encounter Care Teams Social Work Administrator Relationship Specialty Start Date End Date Jenny Vázquez MD [address] [place] [phone] PCP - General Family Medicine 04/13/18 documented as of this encounter
--- OUTSIDE RECORDS SUMMARY | 2024-06-07 12:51 | XMS_ITS | Encounter Summary ---
Author Organization [employer] Address [address] [facility] [address] [place] [address] Care Team Providers Care Public Works Commissioner Name Role Phone Jenny Vázquez MD Primary Care Provider [phone] Reason for Visit * Reason Onset Date Comments Nurse Triage 03/09/2023 Encounter Details Date Type Department Care Team (Late st Contact Info) Description 03/09/2023 Telephone [facility] MEDICINE [address] [place] [address] Jenny Vázquez MD [address] [place] [address] Nurse Triage Social History Tobacco Use Types Packs/Day Years [...] enough money to get more: Never True 10/ Transportation Answer Date Recorded In the past [...] encounter Miscellaneous Notes * Telephone Encounter - Samra Nash RN - 03/09/2023 12:30 PM EST Triage call Pt reports was [place] [facility] [place] and tested positive for Covid. Pt reports had fever03/06 and 03/07 but, no fever since then. Continues with cough, body aches and discomfort. Pt has been using Tessalon Perles prescribed for cough with some effect. Pt is taking APAP for body aches/ headache/ discomfort. Pt is advised to increase liquids to 6-8 glasses especially warm drinks like decaf tea with honey/lemon and Pt agrees. Pt is advised to use cough drops, 1-2 tsp of honey also. Pt advised to use humidifier or steamy hot shower for coughing spells. Pt is offered tele visit for paxlovid but, declined. Pt is advised of 5 day isolation period. No further questions offered. Pt will call again if needed. Follow up ED visit apt with PATHOLOGY TRANSCRIPTIONIST Zeinab 03/19/23 @ 115pm. Insurance is verified asactive prior to booking. Protocol Used: COVID-19 - Diagnosed or Suspected (Adult) Protocol-Based Disposition: Home Care Positive Triage Question: * COVID-19 diagnosed by doctor (or PATHOLOGY TRANSCRIPTIONIST/PA) and mild symptoms (e.g., cough, fever, others) and no complications or SOB * All higher-acuity triage questions were negative Care Advice Discussed: * Reassurance and Education - Diagnosed With COVID-19 by Doctor (or PATHOLOGY TRANSCRIPTIONIST/PA) and Mild Symptoms * General Care Advice for COVID-19 Symptoms * Cough Medicines * Humidifier * Coughing Spells * Pain and Fever Medicines * Reasons To Call Back - Fever over 103 F (39.4 C) - Fever lasts over 3 days - Fever returns after being gone for 24 hours - Chest pain or difficulty breathing occurs - You become worse * COVID-19 - How to Protect Your Family and Yourself From Getting Sick * COVID-19 - How to Protect Others - When You Are Sick With COVID-19 * Clean Your Hands Often * Clean High Touch Surfaces Every Day * Telephone Encounter - Debi Castro - 03/09/2023 11:22 AM EST Symptoms: Cough, Body Aches Outcome: Schedule an urgent appointment (within 1 hour) or talk to a nurse or provider soon Reason: Wheezing (high-pitched whistling sound), pt was [place] [facility] [place]. Pt was tested positive for COVID and is still symptomatic. The caller accepted this outcome Please contact pt at [phone] documented in this encounter Plan of Treatment Not on file documented as of this encounter Visit Diagnoses Not on filedocumented in this encounter Additional Health Concerns Assessment Noted Time PHQ-9 Depression Total Score: 0 10/22/19 23 1:17 PM EDT documented as of this encounter Care Teams Public Works Commissioner Relationship Specialty Start Date End Date Jenny Vázquez MD [address] [place] [id number] PCP - General Family Medicine 04/13/18 documented as of this encounter
--- OUTSIDE RECORDS SUMMARY | 2024-06-07 12:51 | XMS_ITS | Encounter Summary ---
Author Organization [employer] Address [address] [facility] [address] [place] [address] Care Team Providers Care Certified Cytotechnologist Name Role Phone Jenny Vázquez MD Primary Care Provider [phone] Reason for Visit * Reason Onset Date Comments pa request 05/24/2024 Encounter Details Date Type Department Care Team (Late st Contact Info) Description 05/24/2024 Telephone [facility] MEDICINE [address] [place] [address] Jenny Vázquez MD [address] [place] [address] pa request Social History Tobacco Use Types Packs/Day Years [...] encounter Miscellaneous Notes * Telephone Encounter - Maci Tucker - 05/25/2024 4:38 PM EST PA initiated on Covermymeds for Ozempic . Approval/denial pending. * Telephone Encounter - Sheeba Flanagan - 05/24/2024 4:15 PM EST PT Walked in stating that she was told by insurance that she does not have any more ozempic refills, a new PA has been sent to PCP for signature but nothing has been received. documented in this encounter Plan of Treatment Not on file documented as of this encounter Visit Diagnoses Not on filedocumented in this encounter Additional Health Concerns Assessment Noted Time PHQ-9 Depression Total Score: 16 025 2:05 PM EST documented as of this encounter Care Teams Certified Cytotechnologist Relationship Specialty Start Date End Date Jenny Vázquez MD [address] [place] [address] PCP - General Family Medicine 04/13/18 documented as of this encounter
--- OUTSIDE RECORDS SUMMARY | 2024-06-07 12:51 | XMS_ITS | Clinical Summary ---
Author Organization [employer] Address [address] [facility] [address] [address] [place] [address] Care Team Providers Care Kerfer Machine Operator Name Role Phone Jenny Vázquez MD Primary Care Provider [phone] Allergies Active Allergy Reactions Criticality Noted Date Comments Martir Inhibitors 04/21/2022 Ascorbate 02/05/2024 Latex 02/05/2024 Lisinopril Hives 02/18/2023 New Skin 02/05/2024 Peanut Oil 04/21/2022 Peanut-Containing Drug Products 01/12 Pineapple 02/05/2024 [place] Extract Other 02/08/2024 Zoster Vaccine Live 12/12/2016 Medications * This document contains information received from the source organization and may not represent a complete record from that organization. chlorhexidine (Peridex) 0.12 % solutionIndicat ions:Periodonta l disease RINSE FOR 30 SECONDS WITH A HALF OUNCE (15ml) TWICE DAILY, SPIT OUT -- DO NOT SWALLOW. AFTER MEALS 473 mL 1 04/29/19 23 Active Aspirin Low Dose 81 MG EC tablet Take 81 mg by mouth in the morning. 10/23/19 22 Active nitroglycerin (Nitrostat) 0.4 MG SL tablet DISSOLVE 1 TABLET UNDER THE TONGUE EVERY 5 MINUTES NEEDED FOR CHEST PAIN. CALL 911 IF NO RELIEF 11/19/19 22 Active triamcinolone (Kenalog) 0.1 % ointment APPLY TO THE AFFECTED AREA(S) TWICE DAILY 04/22/19 23 Active fluticasone (Flonase) 50 MCG/ACT nasal sprayIndication s:Allergic rhinitis, unspecified seasonality, unspecified trigger INSTILL 2 SPRAYS IN EACH NOSTRIL ONCE DAILY 16 g 11 08/06/19 23 Active Spiriva Respimat 1.25 MCG/ACT inhalerIndicati ons:Moderate persistent asthma without complication INHALE 2 PUFFS BY MOUTH EVERY DAY 1 each 11 08/06/19 23 Active budesonide-form oterol (Symbicort) 160-4.5 MCG/ACT inhalerIndicati ons:Moderate persistent asthma without complication inhale 1 puff by inhalation route 2 times every day in the morning and evening 1 each 11 08/06/19 23 Active Spacer/Aero-Hol ding Chambers (AeroChamber MV) inhalerIndicati ons:Moderate persistent asthma without complication Use as instructed 1 each 2 08/06/19 23 Active Hydrocortisone, Perianal, 1 % cream Apply to anorectal area as needed 28 g 2 08/16/19 23 Active lidocaine (Xylocaine) 5 % ointment Apply to anal area once or twice daily as needed 30 g 2 08/16/19 23 Active pantoprazole (ProtoNix) 40 MG EC tablet TAKE 1 TABLET BY MOUTH EVERY MORNING 90 tablet 3 10/07/19 23 Active clopidogrel (Plavix) 75 MG tablet TAKE 1 TABLET BY MOUTH ONCE DAILY 90 tablet 3 11/04/19 23 Active metoprolol succinate XL (Toprol-XL) 50 MG 24 hr tablet TAKE 2 TABLETS BY MOUTH ONCE DAILY IN THE MORNING 180 tablet 3 11/14/19 23 Active Ventolin HFA 108 (90 Base) MCG/ACT inhalerIndicati ons:Moderate persistent asthma without complication INHALE 2 PUFFS BY MOUTH EVERY 4 HOURS NEEDED SHORTNESS OF BREATH OR FOR WHEEZING 18 g 3 04/28/19 24 Active loratadine (Claritin) 10 MG tabletIndicatio ns:Allergic rhinitis, unspecified seasonality, unspecified trigger TAKE 1 TABLET BY MOUTH EVERY DAY IN THE MORNING 90 tablet 11/03/19 24 Active atorvastatin (Lipitor) 80 MG tablet TAKE 1 TABLET BY MOUTH AT BEDTIME 90 tablet 3 11/16/19 24 Active isosorbide mononitrate ER (Imdur) 60 MG 24 hr tablet Take 60 mg by mouth Once per day. 10/14/19 Active metoclopramide (Reglan) 5 MG tablet Take 5 mg by mouth 4 times daily. Active pregabalin (Lyrica) 50 MG capsuleIndicati ons:Fibromyalgi a TAKE 1 CAPSULE BY MOUTH EVERY TWELVE HOURS 60 capsule 3 02/08/20 Active montelukast (Singulair) 10 MG tabletIndicatio ns:Moderate persistent asthma without complication,Al lergic rhinitis, unspecified seasonality, unspecified trigger Take 1 tablet (10 mg) by mouth at bedtime. 90 tablet 3 02/08/20 Active colchicine 0.6 MG tablet TAKE 1 TABLET BY MOUTH EVERY DAY FOR 7 DAYS 12/22/19 Active EPINEPHrine (Epipen) 0.3 MG/0.3ML injection syringe USE DIRECTED FOR ANAPHYLAXIS Active benzocaine-ment hol (Chloraseptic) 6-10 MG lozengeIndicati ons:Moderate persistent asthma with acute exacerbation Dissolve 1 lozenge in the mouth every 2 (two) hours if needed for sore throat. 100 lozenge 04/07/20 24 2024 Active valACYclovir (Valtrex) 1 g tablet Take 1 tablet (1,000 mg) by mouth 3 times daily for 7 days. 21 tablet 06/06/19 25 2024 Active semaglutide (Ozempic) 2 MG/1.5ML solution pen-injector Inject 0.5 mg under the skin 1 (one) time per week. 1.5 mL 11 06/06/19 25 Active semaglutide (Ozempic) 2 MG/1.5ML solution pen-injector Inject 0.25 mg under the skin 1 (one) time per week. 1.5 mL 11 02/08/20 24 2024 Discontinued(R eorder (will not trigger notification to Pharmacy)) Active Problems Problem Noted Date Diagnosed Date Persistent depressive disorder 05/03/2024 Assessment & Plan (05/04/2024 9:31 AM EST): During IBH Consult Araseli presenting with depressed mood, Tearful, crying spells , hopelessness, irritable mood, loss of interests/pleasure , sense of isolation/loneliness , isolating, change in appetite or weight reduce appetite, changes in sleep difficulty falling asleep, psychomotor retardation, fatigue/loss of energy, worthlessness, inappropriate/excessive guilt , difficulty concentrating, indecisiveness; for a period of 18+ mo, for most or all symptoms in the context of family issues, illness or family illness, and marriage. Araseli presented with severe anhedonia and reported living with symptoms for years. She finds no motivation and does not enjoy life as she used to. Triggers identified are her medical condition (fybromalgia) and her interpersonal relationships (adult children and her ). Araseli reports history of trauma when she was a child. She was able to regain her meaning of life with time and developing a strong connection with God. clinician engaged patient with active/reflective listening. Reviewed and assessed for risk, current stressors and protective factors using open-ended questions. Explored activities/homework she can do to decrease symptoms such as baking, cleaning her home and listening to congregation music. Araseli reports taking medication prescribed by her PCP and having improvements from them. clinician will provide additional support if needed during next medical appointment. Dental abscess 02/18/2023 Ischemic heart disease 08/05/2022 Assessment & Plan (06/06/2024 3:21 PM EST): -Fish Inspector: Dr. Arsenio Bernard and Janna Cruz NP, last seen on [...] discontinued when she was last seen by creel operator in Apr 2024. -Continue Metoprolol, ASA and Atorvastatin -Continue isosorbide -Cont working on lifestyle modifications. Assessment & Plan (02/15/2024 1:39 PM EST): -Fish Inspector: Dr. Arsenio Bernard, last seen on 01/08/23 - NSTEMI in September 2021 - s/p [...] mild mitral regurgitation; normal RV systolic pressure -Continue Metoprolol, Plavix, ASA and Atorvastatin -Continue isosorbed -Cont working on lifestyle modifications. Assessment & Plan (01/28/2023 8:56 PM EDT): -Fish Inspector: Dr. Arsenio TAPIA, last seen on 01/08/23 - NSTEMI in September 2021 - s/p MOOK to RCA in September 2021, mild LAD and LCx disease which are medically treated - s/p MOOK to LAD in Dec 2022 - TTE on 07/21/22 low normal LV systolic function with mild LVH with LVEF 50-55% with mimpaired relaxation and filling pattern; mild mitral regurgitation; normal RV systolic pressure -Continue Metoprolol, Plavix, ASA and Atorvastatin -Continue isosorbed -Cont working on lifestyle modifications. Assessment & Plan (10/28/2022 7:06 AM EDT): -Fish Inspector: Dr. Arsenio TAPIA, last seen on 08/05/22; upcoming Pre-Op appt - NSTEMI in September 2021 - s/p MOOK to RCA in September 2021, mild LAD and LCx disease which are medically treated - TTE on 07/21/22 low normal LV systolic function with mild LVH with LVEF 50-55% with mimpaired relaxation and filling pattern; mild mitral regurgitation; normal RV systolic pressure -Continue Metoprolol, Plavix, ASA and Atorvastatin -Cont working on lifestyle modifications. Assessment & Plan (08/15/2022 6:38 AM EDT): -Fish Inspector: Dr. Arsenio TAPIA, appt today - NSTEMI in September2021 -s/p MOOK -Continue Metoprolol, Plavix, ASA and Atorvastatin -Pt had ran out of Plavix 2 weeks ago. Advised not to d/c Plavix. Emphasize importance of taking Plavix and ASA for at least 1 yr. -Cont working on lifestyle modifications. Hemorrhoids 08/05/2022 Assessment & Plan (01/28/2023 9:03 PM EDT): - Hydrocortisone Suppositories not covered by insurance - Hydrocortisone cream and/or Lidocaine cream was prescribed instead of suppository - seen by General Surgeon on 10/20/22. Planned for hemorrhoidectomy after cardiac clearance - due to recent LAD stent, pt needs to be on uninterrupted dual antiplatelet therapy for at least 1 year - continue bowel regimen - sitz bath Assessment & Plan (10/21/2022 2:22 PM EDT): - Hydrocortisone Suppositories not covered by insurance, will try Hydrocortisone cream and/or Lidocaine cream - last seen by Dr. De Anda in August 2020, Dx internal hemorrhoids, no indication for hemorrhoidectomy at that time - seen by General Surgeon on 10/20/22. Being scheduled for Pre-Op with Fish Inspector. Pt needs Cardiac Clearance Before Hemorrhoidectomy. - continue bowel regimen Assessment & Plan (08/15/2022 6:36 AM EDT): - Hydrocortisone Suppositories not covered by insurance, will try Hydrocortisone cream and/or Lidocaine cream - last seen by Dr. De Anda in August 2020, Dx internal hemorrhoids, no indication for hemorrhoidectomy at that time - will refer her back to General Surgeon - continue bowel regimen GERD (gastroesophageal reflux disease) Assessment & Plan (06/06/2024 3:28 PM EST): Continue pantoprazole (Pt is taking clopidogrel) Minimize NSAIDs use Will refer to GI Specialist Assessment & Plan (08/15/2022 6:39 AM EDT): Continue pantoprazole (Pt is taking clopidogrel) Minimize NSAIDs use Will refer to GI Specialist Balance problem 08/05/2022 Other chest pain 06/13/2022 Assessment & Plan (06/17/2022 12:00 PM EST): Patient with chronic intermittent chest pain. We discussed the possible causes of her pain and how to be evaluated. She said the pain was at baseline for her. Her makes her go to the ER sometimes and they tell her shes fine and just send her home, so she has no interest in going today. I asked her if she would like me to call her creel operator and try to get a sooner appointment and she said shes fine and can wait. I asked her if she felt safe and she said she did. We discussed her nitroglycerin and when to use it and ED precautions. Differentials: stable vs unstable angina, left sided axillary pain, frequent or high PVC burden. Closed fracture of right proximal humerus 2022 Assessment & Plan (08/05/2022 2:50 PM EDT): Last seen by Orthopedist on 07/29/22 Fracture is healing well -continue current treatment plan per orthopedist Assessment & Plan (06/13/2022 4:06 PM EST): No concerns with regard to right shoulder fracture Closed fracture of right wrist 06/13/2022 Assessment & Plan (08/05/2022 2:51 PM EDT): Last seen by Orthopedist on 07/29/22 Fracture is healing well -continue current treatment plan per orthopedist Assessment & Plan (06/13/2022 4:07 PM EST): Patients right wrist is in a cast. She has full sensation in all fingers. All of her fingers are warm and normal cap refill. Nonsustained ventricular tachycardia 05/29/2017 Assessment & Plan (06/06/2024 3:23 PM EST): - previously on Fleicanide, which was changed [...] findings to indicate cause of frequent PVCs. Assessment & Plan (02/15/2024 1:40 PM EST): - previously on Fleicanide, which was changed to metoprolol after NSTEMI and PCI - PVC ablation on 12/15/23 Assessment & Plan (01/28/2023 8:53 PM EDT): - previously on Fleicanide, which was changed to metoprolol after NSTEMI and PCI Assessment & Plan (10/28/2022 7:03 AM EDT): - previously on Fleicanide, which was changed to metoprolol after NSTEMI and PCI Tubular adenoma of colon 03/16/2017 Assessment & Plan (06/06/2024 3:28 PM EST): - last colonoscopy in 2017, tubular adenoma, recommended to have colonoscopy in 5 years - need for at least 1 year of uninterrupted dual antiplatelet therapy post- stent, colonoscopy is being postponed. Assessment & Plan (02/15/2024 1:45 PM EST): - last colonoscopy in 2017, tubular adenoma, recommended to have colonoscopy in 5 years - need for at least 1 year of uninterrupted dual antiplatelet therapy post- stent, colonoscopy is being postponed. Assessment & Plan (08/15/2022 6:41 AM EDT): - last colonoscopy in 2017, tubular adenoma, recommended to have colonoscopy in 5 years - refer to GI for colonoscopy Mixed conductive and sensorineural hearing loss, bilateral 05/12/2016 Assessment & Plan (02/10/2024 8:13 AM EDT): - evaluated by laboratory scientist - wears hearing aids Assessment & Plan (08/15/2022 6:43 AM EDT): - evaluated by laboratory scientist - wears hearing aids Type 2 diabetes mellitus 04/03/2015 Assessment & Plan (06/06/2024 3:49 PM EST): A1c 6.3 today 06/06/24, trending down -No longer taking metformin. -Discussed about restarting it if her glycemic control continues to worsen. -Avoid / prevent getting systemic steroids for her allergy and asthma. -Continue lifestyle modification. -Start Semaglutide -Continue SMBG. -Last eye exam: Feb 2023, next appointment on 03/01/24 -Last foot exam: 08/05/22, plantar fasciitis, ingrown toenail, sees orientation & mobility specialist. -Last microalbumin test: 11/05/22 UACR 4.9; -Last lipid profile: 11/05/22 TC 118; TG 76; HDL 47; LDL 56 -Last dental exam: up-to-date; upcoming in APR 2022 Assessment & Plan (02/14/2024 5:34 PM EST): A1c 7.8% today 02/08/24, trending up -No longer taking metformin. -Discussed about restarting it if her glycemic control continues to worsen. -Avoid / prevent getting systemic steroids for her allergy and asthma. -Continue lifestyle modification. -Start Semaglutide -Continue SMBG. -Last eye exam: Feb 2023, next appointment on 03/01/24 -Last foot exam: 08/05/22, plantar fasciitis, ingrown toenail, sees orientation & mobility specialist. -Last microalbumin test: 11/05/22 UACR 4.9; -Last lipid profile: 11/05/22 TC 118; TG 76; HDL 47; LDL 56 -Last dental exam: up-to-date; upcoming in APR 2022 Assessment & Plan (01/28/2023 9:06 PM EDT): A1c 7.5% on 10/21/22, increased from 7.0% on 08/05/22 -No longer taking metformin. -Discussed about restarting it if her glycemic control continues to worsen. -Avoid / prevent getting systemic steroids for her allergy and asthma. -Continue lifestyle modification. -Continue SMBG. ?? -Last eye exam: 02/21/22 -Last foot exam: 08/05/22, plantar fasciitis, ingrown toenail, sees orientation & mobility specialist. -Last microalbumin test: 11/05/22 UACR 4.9; -Last lipid profile: 11/05/22 TC 118; TG 76; HDL 47; LDL 56 -Last dental exam: up-to-date; upcoming in APR 2022 Assessment & Plan (10/21/2022 2:25 PM EDT): A1c 7.5% on 10/21/22, increased from 7.0% on 08/05/22 -No longer taking metformin. -Discussed about restarting it if her glycemic control continues to worsen. -Avoid / prevent getting systemic steroids for her allergy and asthma. -Continue lifestyle modification. -Continue SMBG. -Last eye exam: 02/21/22 -Last foot exam: 08/05/22, plantar fasciitis, ingrown toenail, sees orientation & mobility specialist. -Last microalbumin test: 10/25/18 UACR no microalbuminuria -Last lipid profile: 01/09/22 TC 134; TG 196; HDL 43; LDL 52 -Last dental exam: up-to-date; upcoming in APR 2022 -Immunizations: -Influenza - due -Pneumovax - due (PCV-13) -Hep B - completed -Aspirin use: Prescribed Assessment & Plan (08/15/2022 6:42 AM EDT): A1c 7.0% on 08/05/22, increased from 6.7% on 02/18/22 -No longer taking metformin. -Discussed about restarting it if her glycemic control continues to worsen. -Avoid / prevent getting systemic steroids for her allergy and asthma. -Continue lifestyle modification. -Continue SMBG. -Last eye exam: 02/21/22 -Last foot exam: 08/05/22, plantar fasciitis, ingrown toenail, sees orientation & mobility specialist. -Last microalbumin test: 10/25/18 UACR no microalbuminuria -Last lipid profile: 01/09/22 TC 134; TG 196; HDL 43; LDL 52 -Last dental exam: up-to-date; upcoming in APR 2022 -Immunizations: -Influenza - due -Pneumovax - due (PCV-13) -Hep B - completed -Aspirin use: Prescribed Dyslipidemia 11/07/2014 Assessment & Plan (06/06/2024 3:29 PM EST): Last lipid profile: 11/05/22 TC 118; TG 76; HDL 47; LDL 56 Current medication: atorvastatin 80 mg qhs Tx Hx: -Pt previously c/o myalgia using atorvastatin which was changed to pravastatin, switched back to atorvastatin d/t NSTEMI and tolerating at this time Assessment & Plan (02/10/2024 8:13 AM EDT): Last lipid profile: 11/05/22 TC 118; TG 76; HDL 47; LDL 56 Current medication: atorvastatin 80 mg qhs Tx Hx: -Pt previously c/o myalgia using atorvastatin which was changed to pravastatin, switched back to atorvastatin d/t NSTEMI and tolerating at this time Assessment & Plan (01/28/2023 9:07 PM EDT): Last lipid profile: 11/05/22 TC 118; TG 76; HDL 47; LDL 56 Current medication: atorvastatin 80 mg qhs ?? Tx Hx: -Pt previously c/o myalgia using atorvastatin which was changed to pravastatin, switched back to atorvastatin d/t NSTEMI and tolerating at this time Assessment & Plan (08/15/2022 6:45 AM EDT): Last lipid profile: 01/09/22 TC 134; TG 196; HDL 43; LDL 52 Current medication: atorvastatin 80 mg qhs Tx Hx: -Pt previously c/o myalgia using atorvastatin which was changed to pravastatin, switched back to atorvastatin d/t NSTEMI and tolerating at this time Frequent PVCs 11/07/2014 Assessment & Plan (02/15/2024 1:43 PM EST): - most recent Holter monitor in September 2021 PVC burden 25% - TTE on 09/20/21 LVEF 45-50%, s/p stent - TTE on 07/21/22 low normal LV systolic function with mild LVH with LVEF 50-55% with mimpaired relaxation and filling pattern; mild mitral regurgitation; normal RV systolic pressure -Previously on fleicanide, which was changed to metoprolol when pt had NSTEMI and PCI in September 2021 -Continue metoprolol succinate 50 mg TWO tablets daily -Continue BB -PVC ablation on 12/15/23 Assessment & Plan (01/28/2023 9:03 PM EDT): - most recent Holter monitor in September 2021 PVC burden 25% - TTE on 09/20/21 LVEF 45-50%, s/p stent - TTE on 07/21/22 low normal LV systolic function with mild LVH with LVEF 50-55% with mimpaired relaxation and filling pattern; mild mitral regurgitation; normal RV systolic pressure -Previously on fleicanide, which was changed to metoprolol when pt had NSTEMI and PCI in September 2021 -Continue metoprolol succinate 50 mg TWO tablets daily -Continue BB Assessment & Plan (10/28/2022 7:07 AM EDT): - most recent Holter monitor in September 2021 PVC burden 25% - TTE on 09/20/21 LVEF 45-50%, s/p stent - TTE on 07/21/22 low normal LV systolic function with mild LVH with LVEF 50-55% with mimpaired relaxation and filling pattern; mild mitral regurgitation; normal RV systolic pressure -Previously on fleicanide, which was changed to metoprolol when pt had NSTEMI and PCI in September 2021 -Continue metoprolol succinate 50 mg TWO tablets daily -Continue BB Assessment & Plan (08/05/2022 9:28 AM EDT): Seen by creel operator, Dr. Cesar, on 01/09/22 for CAD and PVC f/u: -TTE was ordered by Fish Inspector -most recent Holter monitor in Dec 2019 PVC 3%. -09/20/21 Echo LVEF 45-50%, p/s Stent -Continue metoprolol succinate 50 mg TWO tablets daily -Continue BB -Previously flecainide 100 mg BID. d/c d/t hospitalization Fibromyalgia 07/20/2014 Assessment & Plan (06/06/2024 3:28 PM EST): Followed by Wad Impregnator -Continue Lyrica, use judiciously -Continue staying active Assessment & Plan (02/10/2024 8:12 AM EDT): Followed by Wad Impregnator -Continue Lyrica, use judiciously -Continue staying active Assessment & Plan (08/05/2022 9:27 AM EDT): Followed by Wad Impregnator -Continue Lyriccarlo, use judiciously -Continue staying active Allergic rhinitis 03/24/2013 Assessment & Plan (02/15/2024 1:48 PM EST): - continue loratadine and montelukast - following with healthcare specialist Assessment & Plan (10/21/2022 2:19 PM EDT): - continue loratadine and montelukast - will check status of referral Assessment & Plan (08/15/2022 6:43 AM EDT): - continue loratadine and montelukast - refer to a new healthcare specialist Depressive disorder 03/24/2013 Hypertension 03/24/2013 Assessment & Plan (06/06/2024 3:28 PM EST): <140/90 per JNC-8, < 130/80 per ACC/AHA - BP at goal -Continue Metoprolol 100 mg daily -Continue Lifestyle modifications -Continue monitoring BP at home -Previously tried ARB, ACEI, and HCTZ -Discontinued ACEI due to cough -Follow up in 3-6 mo or sooner prn Assessment & Plan (02/10/2024 8:12 AM EDT): <140/90 per JNC-8, < 130/80 per ACC/AHA - BP at goal -Continue Metoprolol 100 mg daily -Continue Lifestyle modifications -Continue monitoring BP at home -Previously tried ARB, ACEI, and HCTZ -Discontinued ACEI due to cough -Follow up in 3-6 mo or sooner prn Assessment & Plan (01/28/2023 8:57 PM EDT): <140/90 per JNC-8, < 130/80 per ACC/AHA - BP at goal -Continue Metoprolol 100 mg daily -Continue Lifestyle modifications -Continue monitoring BP at home -Previously tried ARB, ACEI, and HCTZ -Discontinued ACEI due to cough -Follow up in 3-6 mo or sooner prn Assessment & Plan (10/21/2022 2:23 PM EDT): <140/90 per JNC-8, < 130/80 per ACC/AHA - BP at goal -Continue Metoprolol 100 mg daily -Continue Lifestyle modifications -Continue monitoring BP at home -Previously tried ARB, ACEI, and HCTZ -Discontinued ACEI due to cough -Follow up in 3-6 mo or sooner prn Assessment & Plan (08/15/2022 6:37 AM EDT): <140/90 per JNC-8, < 130/80 per ACC/AHA -Continue Metoprolol 100 mg daily -Continue Lifestyle modifications -Continue monitoring BP at home -Previously tried ARB, ACEI, and HCTZ -Discontinued ACEI due to cough -Follow up in 3-6 mo or sooner prn Obesity 03/24/2013 Obstructive sleep apnea syndrome 03/24/2013 Assessment & Plan (06/06/2024 3:27 PM EST): - research animal facility supervisor changed mask for nasal pillow per patient's request in May 2023 - recommended CPAP use Assessment & Plan (02/14/2024 5:29 PM EST): - research animal facility supervisor changed mask for nasal pillow per patient's request in May 2023 - recommended CPAP use Assessment & Plan (01/28/2023 8:51 PM EDT): - continue CPAP Asthma 12/10/2012 Assessment & Plan (06/06/2024 6:25 AM EST): - Previously followed by Allergy / information assurance specialist : Dr. Ahn - Seen by new research animal facility supervisor at [facility] in May 2023 - No history of intubation, Hx pneumonia and influenza in Apr 2018 - Severe exacerbation 1 or 2 times / year - Last exacerbation in Mar 2024, Rx prednisone, doxycycline. - Continue Symbicort and Singulair as maintenance. - Continue albuterol HFA / neb prn as rescue. Assessment & Plan (04/07/2024 4:36 PM EST): Pt with asthma, using her inhalers regularly. Today evidence of acute exacerbation Plan: Prednisone taper, Doxy BID x 7 days Follow up if worsening or no improvement Assessment & Plan (02/14/2024 5:29 PM EST): - Previously followed by Allergy / information assurance specialist : Dr. Ahn - Seen by new research animal facility supervisor at [facility] in May 2023 - No history of intubation, Hx pneumonia and influenza in Apr 2018 - Severe exacerbation 1 or 2 times / year - Continue Symbicort and Singulair as maintenance. - Continue albuterol HFA / neb prn as rescue. Assessment & Plan (01/28/2023 8:51 PM EDT): - Previously followed by Allergy / information assurance specialist : Dr. Ahn - Seen by new research animal facility supervisor at [facility] in August 2022 - No history of intubation, Hx pneumonia and influenza in Apr 2018 - Severe exacerbation 1 or 2 times / year - Continue Symbicort and Singulair as maintenance. - Continue albuterol HFA / neb prn as rescue. Assessment & Plan (10/28/2022 6:57 AM EDT): - Previously followed by Allergy / information assurance specialist : Dr. Ahn - Seen by new research animal facility supervisor at [facility] in August 2022 - No history of intubation, Hx pneumonia and influenza in Apr 2018 - Severe exacerbation 1 or 2 times / year - Continue Symbicort and Singulair as maintenance. - Continue albuterol HFA / neb prn as rescue. Assessment & Plan (08/15/2022 6:29 AM EDT): - Allergy / information assurance specialist : Dr. Ahn, needs a new allergy learning operations specialist - No history of intubation, Hx pneumonia and influenza in Apr 2018 - Severe exacerbation 1 or 2 times / year - Continue Symbicort and Singulair as maintenance. - Continue albuterol HFA / neb prn as rescue. Encounters * This document contains information received from the source organization and may not represent a complete record from that organization. Date Type Department Care Team Description 06/06/2024 3:15 PM EST Office Visit [address] [address] Jenny Vázquez MD Primary hypertension (Primary Dx); Obstructive sleep apnea syndrome; Type 2 diabetes mellitus without complication, without long-term current use of insulin (CMS/HCC); Fibromyalgia; Dyslipidemia; Ischemic heart disease; Nonsustained ventricular tachycardia (CMS/HCC); Moderate persistent asthma without complication; Tubular adenoma of colon; Gastroesophageal reflux disease, unspecified whether esophagitis present; Left upper quadrant pain 06/06/2024 Travel 06/01/[address] [address] Jenny Vázquez MD Chart Prep 05/24/[address] [address] Jenny Vázquez MD pa request 04/27/[address] [address] Dyana Castro [place] febuary recall 04/07/2024 3:00 PM EST Office Visit [facility] [address] [place] [phone] Humberto Rushing MD Moderate persistent asthma with acute exacerbation (Primary Dx); Viral URI 03/31/[address] [address] Jenny Vázquez MD FYI; Call Back Request 03/24/[address] [address] Alice Jimenez, YOSELIN BS concerns from Last 3 Months Immunizations Name Administration Dates Next Due Hep B, adult 03/16/2017,11/07/2014,03/24/2013 Influenza High-dose Quadriva lent Preservative Free 01/26/2023,02/18/2022 Influenza injectable quadriv alent IIV4 with preservative 12/28/2018,03/16/2017,01/14/2016 Influenza injectable quadriv alent preservative free 06/15/2018 Influenza, High Dose Seasona l, Preservative Free 02/08/2024 Influenza, IIV3, injectable 12/25/2010, 9 Influenza, Split (incl. daniella fied surface antigen) 03/24/2013 Pneumococcal Conjugate PCV 20 02/08/2024 Pneumococcal Polysaccharide PPSV23 01/04/2009 TD (adult), 2 Lf tetanus tox oid, preservative free, adsorbed 02/18/2022,04/13/2004 Tdap 06/04/2011 Zoster, live 11/18/2016 Social History Tobacco Use Types Packs/Day Years Used Date Smoking Tobacco: Never Passive Smoke Exposure: Never Smokeless Tobacco: Never Tobacco Cessation:Counseling Given: Not Answered Alcohol Use Standard Drinks/Week Comments Never 0 [...] Orientation Straight 02/10/2022 10 :20 AM EDT Last Filed Vital Signs Vital Sign Reading [...] Mass Index 34.47 06/06/2024 3:25 PM EST Plan of Treatment Health Maintenance Due Date Last Done Comments CT Colonography 1955 FIT DNA/Cologuard 1955 FIT 1955 FOBT 1955 Sigmoidoscopy 1955 Diabetes: Foot Exam 01/18/1966 Hepatitis C Screening 01/18/1974 RSV Patients and Patients Aged 60 years or older (1 - Risk 60-74 years 1-dose series) 2016 Dental Prophylaxis 10/28/2016 04/29/2016, 0 10/23/2015, 03/04/2013 Zoster Vaccines (2 of 3) 01/13/2017 11/18/2016 Dental Oral Exam 08/20/2023 02/18/2023, 01/2021, 10/19/2015, Additional history exists Dental X-Ray: Full Mouth 08/22/2023 08/20/2020 Diabetes: Urine Protein Screening 11/06/2023 06/07/2024, 11/05/2022, 02/18/2022 Lipid Panel 11/06/2023 06/07/2024, 07/09/2022, 01/09/2022 COVID-19 Vaccine ( season) 2023 11/18/2021, 08/04/2020, 07/11/2020 Dental X-Ray: Bitewings 02/20/2024 02/19/20 23, 08/20/2020, 10/19/2015 Depression Monitoring (PHQ-9) 10/31/2024 05/03/2024, 05/03/2024 Diabetes: Hemoglobin A1C 12/04/2024 025, 02/08/2024, 11/05/2022, Additional history exists Alcohol/Substance Use Screening 02/07/2025 02/08/2024 SDOH Screening 02/07/2025 02/08/2024 Eye Exam 03/03/2025 03/03/2023 Depression Screening 05/03/2025 05/03/2024, 05/03/19 Tobacco Screening 06/06/2025 06/06/2024 Mammogram 02/11/2026 02/12/2024, 01/12, 02/04/2022, Additional history exists Colonoscopy 12/09/2026 12/09/2016 Colorectal Cancer Screening 12/09/2026 DTaP/Tdap/Td Vaccines (3 - Td or Tdap) 02/19/2032 02/18/2022, 06/04/2011, 04/13/2004 Hepatitis B Vaccines Completed 03/16/2017, 11/07/2014, 03/24/2013 Influenza Vaccine Completed 02/08/2024, , 02/18/2022, Additional history exists Pneumococcal Vaccine: 50+ Years Completed 02/08/2024, 01/04/2009 HIB Vaccines Aged Out No longer eligi ble based on patient's age to complete this topic HPV Vaccines Aged Out No longer eligi ble based on patient's age to complete this topic Hepatitis A Vaccines Aged Out No long er eligible based on patient's age to complete this topic IPV Vaccines Aged Out No longer eligi ble based on patient's age to complete this topic Meningococcal Vaccine Aged Out No khadijah alek eligible based on patient's age to complete this topic RSV under 20 months Aged Out No longe r eligible based on patient's age to complete this topic Rotavirus Vaccines Aged Out No longer eligible based on patient's age to complete this topic Procedures Procedure Name Priority Date/Time Associated Diagnosis Comments HEPATIC FUNCTION PANEL Routine 06/07/2024 10:46 AM EST Dyslipidemia TSH W/REFLEX TO FT4 Routine 06/07/2024 1 0:46 AM EST Primary hypertension ALBUMIN, RANDOM URINE W/CREATININE Routine 06/07/2024 10:46 AM EST Type 2 diabetes mellitus without complication, without long-term current use of insulin ([facility]/HCC) Primary hypertension LIPID PANEL WITH REFLEX TO DIRECT LDL Routine 06/07/2024 10:46 AM EST Dyslipidemia POCT GLYCOSYLATED HEMOGLOBIN (HGB A1C) Routine 06/06/2024 3:30 PM EST Type 2 diabetes mellitus without complication, without long-term current use of insulin ([facility]) POCT GLUCOSE Routine 06/06/2024 3:30 PM EST Type 2 diabetes mellitus without complication, without long-term current use of insulin ([facility]) POCT INFLUENZA B (ID NOW RAPID MOLECULAR) Routine 04/07/2024 3:34 PM EST Viral URI POCT INFLUENZA A (ID NOW RAPID MOLECULAR) Routine 04/07/2024 3:34 PM EST Viral URI POCT RAPID STREP A Routine 04/07/2024 3: 34 PM EST Viral URI POCT RAPID COVID ANTIGEN Routine 04/07/2024 3:34 PM EST Viral URI BI MAMMOGRAM SCREENING TOMOSYNTHESIS BILATERAL Routine 02/12/2024 2:03 PM EDT HM DIABETES EYE EXAM Routine 03/03/2023 BITEWINGS - 4 RADIOGRAPHIC IMAGES Routine 02/18/2023 2:30 PM EST PERIODIC ORAL EVALUATION - ESTABLISHED PATIENT Routine 02/18/2023 2:30 PM EST INTRAORAL - COMPLETE SERIES OF RADIOGRAPHIC IMAGES Routine 08/20/2020 12:00 AM EDT HM COLONOSCOPY Routine 12/09/2016 PROPHYLAXIS - ADULT Routine 04/29/2016 1 2:00 AM EST from Last 3 Months or Most Recently Relevant to Health Maintenance Results * Albumin, Random Urine W/Creatinine (06/07/2024 10:46 AM EST) Creatinine, Urine 93.36 mg/dL [facility] Microalbumin Urine <5.0 mg/L [facility] Microalbum Creatinine Ratio Ur TNP <30 ug/mg cr [facility] Comment:Unable to calculate albumin/creatinine ratio due to lowmicroalbumin or creatinine result. Urine 06/07/2024 10:4 6 AM EST 06/07/2024 11:32 AM EST us Jenny Vázquez MD LAB URINE ORDERABLES Final Resul t [facility] [address] [place] [address] [phone] * (ABNORMAL) POCT glycosylated hemoglobin (Hgb A1c) (06/06/2024 3:30 PM EST) Hemoglobin A1C 6.3(A) 4.0 - 6.0 % QC Media Lot # [id number] Lot# Expiration Date Blood Capillary blood specimen / Unknown 06/06/2024 3:30 PM EST us Jenny Vázquez MD POINT OF CARE TEST ENTER/EDIT OR DERABLES Final Result * POCT glucose manually resulted (06/06/2024 3:30 PM EST) Glucose Blood, POC 110 60 - 200 mg/dL QC Media Lot # [id number] Lot# Expiration Date Blood Capillary blood specimen / Unknown 06/06/2024 3:30 PM EST us Jenny Vázquez MD POINT OF CARE TEST ENTER/EDIT OR DERABLES Final Result * Influenza B (ID NOW Rapid Molecular) (04/07/2024 3:34 PM EST) [facility] Influenza B Negative Negative, Indeterminate [facility] Swab 04/07/2024 3:34 PM EST us Humberto Chilel MD POINT OF CARE TEST EN TER/EDIT ORDERABLES Final Result Performing Organization Address [facility] Co de Phone Number [facility] [address] [place] [phone] * Influenza A (ID NOW Rapid Molecular) (04/07/2024 3:34 PM EST) [facility] Influenza A Negative Negative, Indeterminate [facility] Swab 04/07/2024 3:34 PM EST Result [facility] us Humberto Chilel MD POINT OF CARE TEST EN TER/EDIT ORDERABLES Final Result Performing Organization Address [facility] Co de Phone Number [facility] [address] [place] [phone] * POCT Rapid COVID Ag (04/07/2024 3:34 PM EST) [facility] Rapid COVID Ag Negative [facility] Swab 04/07/2024 3:34 PM EST Result [facility] us Humberto Chilel MD POINT OF CARE TEST EN TER/EDIT ORDERABLES Final Result Performing Organization Address [facility] Co de Phone Number [facility] [address] [place] [phone] * POCT rapid strep A manually resulted (04/07/2024 3:34 PM EST) [facility] Rapid Strep A Screen Negative Negative, None Detected [facility] Swab 04/07/2024 3:34 PM EST us Humberto Chilel MD POINT OF CARE TEST EN TER/EDIT ORDERABLES Final Result [facility] [address] [facility] [place] [phone] [phone] * BI Mammogram Screening Tomosynthesis Bilateral (02/12/2024 2:03 PM EDT) Anatomical Region Laterality Modality Breast Bilateral Mammography 02/12/2024 2:03 PM EDT Narrative 02/22/2024 7:44 PM EST ? [facility] ? [address] ?[place] [address] ? Mammography Report ? Signed ? Patient: Araseli Leary ?MR#: [id number] ?? [id number] ? : 1955 ?Acct:[id number] ? Age/Sex: 69 / F ?ADM Date: 02/12/24 ? Loc: HO.MAMMO ? Attending Dr: Jenny Vázquez MD ? Ordering Physician: Jenny Vázquez MD ?Results: 1Negative ? Date of Service: 02/12/24 ?Follow Up: 1 Year From Orig ?? inal Mammogram ? Procedure(s): MM tomosynthesis screening BI ?? Accession Number(s): [id number] ? cc: Jenny Vázquez MD ? EXAMINATION: ?? MM SCREENING DIGITAL BREAST TOMOSYNTHESIS, BILATERAL ? CLINICAL INFORMATION: ? Screening. Asymptomatic. ? COMPARISON: ?? Mammography: Comparison is made with available priors ? TECHNIQUE: ?? Digital breast mammography with tomosynthesis is performed in both the ?? craniocaudal and mediolateral oblique views along with computer-aided ?? detection (CAD). ? FINDINGS: ?? There are scattered areas of fibroglandular density (ACR BI-RADS breast ?? composition Category b). ? There are no significant masses, abnormal calcifications, or other ?? abnormalities. ? MM/MM tomosynthesis screening BI ?? IMPRESSION: ?? No mammographic evidence of malignancy. ? ASSESSMENT: ? BI-RADS BI-RADS 1 - Negative ? RECOMMENDATION: ?? Routine annual mammography screening. ? 1 year F/U ? This examination should not preclude the clinical evaluation of a ?? suspicious palpable abnormality. ? This patient's information was entered into a reminder system with a ?? target due date for their next mammogram. ? Electronically signed by: ??Celine Mendez DO ??02/22/2024 07:41 PM EST ?? RP ? Dictated By: ?Celine Mendez DO ? Signed By: ?<Electronically signed by Celine Mendez, DO in OV> ? 02/22/24 1941 ? DD/ 1403 ? TD/TT: 02/12/24 1403 ? Cooper Apprentice: ? Procedure Note Jaxon, [place] - 02/22/2024 [facility] [address] [place] [address] [place] [address] Mammography Report Signed Patient: Jose M Leary#: [id number] : 6Acct:[id number] Age/Sex: 69 / FADM Date: 02/12/24 Loc: [facility] Attending Dr: Jenny Vázquez MD Ordering Physician: Jenny Vázquez MDResults: 1Negative Date of Service: 02/12/24Follow Up: 1 Year From Orig inal Mammogram Procedure(s): MM tomosynthesis screening BI Accession Number(s): [id number] cc: Jenny Vázquez MD EXAMINATION: MM SCREENING DIGITAL BREAST TOMOSYNTHESIS, BILATERAL CLINICAL INFORMATION: Screening. Asymptomatic. COMPARISON: Mammography: Comparison is made with available priors TECHNIQUE: Digital breast mammography with tomosynthesis is performed in both the craniocaudal and mediolateral oblique views along with computer-aided detection (CAD). FINDINGS: There are scattered areas of fibroglandular density (ACR BI-RADS breast composition Category b). There are no significant masses, abnormal calcifications, or other abnormalities. MM/MM tomosynthesis screening BI IMPRESSION: No mammographic evidence of malignancy. ASSESSMENT: BI-RADS BI-RADS 1 - Negative RECOMMENDATION: Routine annual mammography screening. 1 year F/U This examination should not preclude the clinical evaluation of a suspicious palpable abnormality. This patient's information was entered into a reminder system with a target due date for their next mammogram. Electronically signed by: Celine Mendez DO 02/22/2024 07:41 PM [facility] Dictated By: Celine Mendez DO Signed By: <Electronically signed by Celine Mendez DO in OV> 02/22/241940 DD/ 02 TD/TT: 02/12/241402 Cooper Apprentice: Jenny Vázquez MD IM BI PROCEDURES Edited Result - Final * Diabetes Eye Exam (03/03/2023) Eye Exam Normal Normal Historical Provider HEALTH MAINTENANCE Final Result * Colonoscopy (12/09/2016) Colonoscopy Normal Normal 12/09/2016 Kerri Alejo HEALTH MAINTENANCE Final Result from Last 3 Months or Most Recently Relevant to Health Maintenance Insurance [address] [place] [address] HSN FULL [employer] MEDICARE REPLACEMENT [address] [place] [address] [place] DENTAL - HSN FULL (MEDICAID) [address] [place] [address] 1 [place] [address] [address] [place] [address] Care Teams Kerfer Machine Operator Relationship Specialty Start Date End Date Jenny Vázquez MD [address] [place] [address] [place] [address] PCP - General Family Medicine 04/13/18
--- OUTSIDE RECORDS SUMMARY | 2024-06-07 12:51 | XMS_ITS | Encounter Summary ---
Author Organization [employer] Address [address] [facility] [address] [place] [address] Care Team Providers Care Electrical Manufacturing Technician Name Role Phone Jenny Vázquez MD Primary Care Provider [phone] Encounter Details Date Type Department Care Team (Late st Contact Info) Description 12/30/2023 Orders Only [facility] [address] [place] [address] Jenny Vázquez MD [address] [place] [address] Primary hypertension (Primary Dx); Dyslipidemia; Fibromyalgia Social History Tobacco Use Types Packs/Day [...] as of this encounter Visit Diagnoses Diagnosis Primary hypertension- Primary Unspecified essential hypertension Dyslipidemia Other and unspecified hyperlipidemia Fibromyalgia Unspecified myalgia and myositis documented in this encounter Additional Health Concerns Assessment Noted Time PHQ-9 Depression Total Score: 0 10/22/19 23 1:17 PM EDT documented as of this encounter Care Teams Electrical Manufacturing Technician Relationship Specialty Start Date End Date Jenny Vázquez MD [address] [place] [address] PCP - General Family Medicine 04/13/18 documented as of this encounter
--- OUTSIDE RECORDS SUMMARY | 2024-06-07 12:51 | XMS_ITS | Encounter Summary ---
Author Organization [employer] Address [address] [facility] [address] [place] [address] Care Team Providers Care Mobile Heavy Equipment Mechanic Name Role Phone Jenny Vázquez MD Primary Care Provider [phone] Reason for Visit * Reason Comments Med Refill Encounter Details Date Type Department Care Team (Late st Contact Info) Description 04/17/2023 Refill [facility] [address] [place], [place] [phone] Jenny Vázquez MD [address] [place] [address] Fibromyalgia Social History Tobacco Use Types Packs/Day Years Used Date Smoking Tobacco: Never Passive Smoke Exposure: Never Smokeless Tobacco: Never Alcohol Use Standard Drinks/Week Comments Never 0 (1 standard drink = 0.6 oz pur e alcohol) Depression Answer Date Recorded Patient Health Questionnaire-9 Score 0 10/21/2022 Housing Stability Answer Date Recorded What is your housing situation today? I have sarikajazmyne piedra 01/25/[address] you [...] documented as of this encounter Care Teams Mobile Heavy Equipment Mechanic Relationship Specialty Start Date End Date Jenny Vázquez MD [address] [place] [address] PCP - General Family Medicine 04/13/18 documented as of this encounter
[2024-06-07 13:15] LABS: Alkaline Phosphatase 121 U/L (39-117)
[2024-06-07 13:42] LABS: Reflex LDLD? No
== END 2024-06-07 10:44 | disposition home or self-care (01) ==
LOC: HO.HHCL 10:43
PROVIDERS: Visit Provider Family Medicine
DX: E78.5 Hyperlipidemia, unspecified (principal); E11.9 Type 2 diabetes mellitus without complications; I10 Essential (primary) hypertension
CPT/HCPCS: 36415; 80061; 80076; 82043; 82570; 84443

== ENCOUNTER 2024-06-15 13:02 | Outpatient (AMB) | payer MEDICARE, OTHER, SELFPAY ==
--- NOTE | 2024-06-15 13:21 | MHC.AMNUTRGE ---
VS Expanded 06/15/24 13:24 06/23/24 22:26 Height 5 ft 3 in 5 ft 3 in Weight 188 lb 11.451 oz 189 lb BMI 33.4 33.5 Intake Visit Reasons: Type 2 diabetes mellitus with unspecified complic Allergies peanut Allergy (Severe, Verified 04/18/24 12:59) angioedema lisinopril [LISINOPRIL] Allergy (Intermediate, Verified 04/18/24 12:59) RASH, cough zoster vaccine live [SHINGLES VACCINE] Allergy (Intermediate, Verified 04/18/24 12:59) LOCALIZED REDNESS, SWELLING, FEVER,COUGH latex [LATEX] Allergy (Unknown, Verified 04/18/24 12:59) RASH pineapple [PINEAPPLE] Allergy (Unknown, Verified 04/18/24 12:) RASH strawberry [STRAWBERRY] Allergy (Unknown, Verified 04/18/24 12:) RASH adhesive Allergy (Verified 04/18/24 12:) Blister Nutrition Presentation Details: Pt presents for MNT for T2DM and atherosclerotic cardiovascular disease Pt participates in [facility] meals on wheels progr (2 meal/d, with fat free milk with fruit or yogurt sometimes has breakfast meal consisting of egg salad sadn on bread, white, coffee with diet sugar f B: 1 boiled egg and turkey and low fat cheese, spinach food frequency dairy 2-3 /d fruits 2-3/d veg 2 serving/d fish 1x/wk starches 15-18 serving /d fluids: water, juice, milk , diet soda 16-24 oz/d pasties and similar 1+d/ physical activity: sedentary etoh/smoking :denies BS Monitoring Most Recent Diabetes Results: Microalb/Creat Ratio TNP 06/07/24 Cholesterol 121 mg/dL (<200) 06/07/24 HDL Cholesterol 44 mg/dL (>40) 06/07/24 Triglycerides 106 mg/dL (<150) 06/07/24 Creatinine 0.91 mg/dL (0.5-1.4) 02/08/24 Blood Urea Nitrogen 19 mg/dL (9-16) H 02/08/24 Sodium 139 mmol/L (135-145) 02/08/24 Potassium 3.9 mmol/L (3.3-5.1) 02/08/24 Chloride 109 mmol/L (96-108) H 02/08/24 Carbon Dioxide 23 mmol/L (22-29) 02/08/24 Calcium 9.4 mg/dL (8.4-10.2) 02/08/24 AST 25 U/L (5-31) 06/07/24 ALT 21 U/L (0-31) 06/07/24 Total Protein 6.9 g/dL (6.5-8.0) 06/07/24 Albumin 3.8 g/dL (3.5-5.0) 06/07/24 NFA-Ulnbuge-Gr.Jeor Equation Height: 5 ft 3 in Weight: 189 lb Resting Metabolic Rate: 1361.00 Calculated Activity Level: Sedentary Calories Needed to Maintain Weight: 1633.20 Diagnosis Nutrition problem #1: food nutri know defi As related to (etiology) #1: diagnosis As evidenced by (sign/symptom) #1: knowledge deficit of diet [facility] Medical History COVID-19 Palpitation Precordial chest pain Hemorrhoids Abdominal bloating Abdominal cramping Back pain Encounter for monitoring anti-arrhythmic therapy Fracture of proximal phalanx of right ring finger Syncope and collapse Acute non-ST elevation myocardial infarction (NSTEMI) Fracture of lesser tuberosity of right humerus Fracture of proximal end of right humerus Family history of ovarian cancer Early satiety COPD (chronic obstructive pulmonary disease) Cataract GUADALUPE (obstructive sleep apnea) Obesity (BMI 30-39.9) Hemorrhoids with complication GUADALUPE (obstructive sleep apnea) Hemorrhoids with complication NSVT (nonsustained ventricular tachycardia) PVC (premature ventricular contraction) Surgical History History of cardiac cath S/P cardiac catheterization History of coronary artery stent placement History of esophagogastroduodenoscopy (EGD) Hx of colonoscopy History of shoulder surgery (~04/29/18) History of lumbar laminectomy Family History Father Cardiovascular disease Mother Osteoarthritis Family/Other Ovarian cancer, Onset Age: 30 Social History Household Members: Spouse Alcohol intake: never Patient Tobacco Use Status: Never used Tobacco service: No Current occupational status: unemployed Current occupation: rt handed Assessment & Plan Assessment & Plan (1) T2DM (type 2 diabetes mellitus): Code(s): E11.9 - Type 2 diabetes mellitus without complications Category: Medical Plan: Wt: 86 Kg ( 07/05 ) Est kcal needs as per MSJ: 1600 (40% carb, 30% protein/fat) Est fluid needs as per 25-30 ml/d: 2600 Est prot per day as per 1 g/kg bw: 86 Recommend fiber intake : 8-10 g per day and gradually increase to 25-28 g per day for women and 35-38 g for men or as tolerated Recommend sodium intake per day : less than 1500 mg less than 2000 mg Educated patient on: ( R = reviewed V = verbalizes understanding N/R = needs review N/A = not applicable Food sources of carbohydrate, adequate serving sizes and its role in various health conditions: R V N/R Differences between complex carbohydrates a simple carbohydrates, role of fiber in diet: R Lean protein sources of foods: R Differences between types of fats and role in diet (mono on saturated fat fatty acids, saturated fatty acids, trans fats): R V N/R Food sources of sodium in salt and healthy modifications for heart health in kidney health: R V R/V Vitamins and minerals: R V N/R Healthy plate method concept: R V N/R Physical activity: Benefits a precaution: R V N/R Hypoglycemia protocol (rule of 15): R V N/R Dietary prevention of Hyperglycemia: R Patient Instructions: keep hydrated,have water in between meals instead of juices Include fiber rich foods , oat twice/week, watch total carb portion sizes ( 45-60 g carb per meal and 0-20 g as snack) Coding Level of Care Code Nutr Indiv Intake (37994) Diagnoses T2DM (type 2 diabetes mellitus) E11.9 Time Spent (min) 30
[2024-06-15 13:24] VITALS: BMI 33.4
[2024-06-23 22:26] VITALS: BMI 33.5
== END 2024-06-15 14:04 | disposition home or self-care (01) ==
PROVIDERS: PCP Family Medicine; Visit Provider Dietitian, Registered
DX: E11.9 Type 2 diabetes mellitus without complications (principal)

== ENCOUNTER → 2024-06-15 13:02 | Outpatient (BNVA) | payer MEDICARE, OTHER, SELFPAY | PROVIDERS: PCP Family Medicine; Visit Provider Dietitian, Registered | DX: E11.9 Type 2 diabetes mellitus without complications (principal); E66.9 Obesity, unspecified; Z68.33 Body mass index [BMI] 33.0-33.9, adult; Z71.3 Dietary counseling and surveillance | CPT/HCPCS: 97802 ==

== ENCOUNTER 2024-07-06 13:56 | Outpatient (REF) | payer MEDICARE, OTHER, SELFPAY ==
[2024-07-13 15:24] LABS: Creatinine Random Urine 113 mg/dL (16 - 326); N-Methylhistamine Random Urine 114 mcg/g Cr (30-200)
[2024-07-19 10:55] LABS: Prostaglandin D2 Random Urine 159
== END 2024-07-06 13:57 | disposition home or self-care (01) ==
LOC: HO.LAB 13:56
PROVIDERS: PCP Family Medicine; Visit Provider Allergy & Immunology
DX: T78.1XXD Other adverse food reactions, not elsewhere classified, subsequent encounter (principal)
CPT/HCPCS: 82542; 82570; 84150

== ENCOUNTER 2024-07-27 13:28 | Outpatient (REF) | payer SELFPAY | END 2024-07-27 13:29 | disposition home or self-care (01) | LOC: HO.HAP 13:28 | PROVIDERS: Visit Provider Family Medicine | DX: Z46.1 Encounter for fitting and adjustment of hearing aid (principal); H90.3 Sensorineural hearing loss, bilateral | CPT/HCPCS: V5267 ==

== ENCOUNTER 2024-07-27 13:38 | Outpatient (AMB) | payer MEDICARE, OTHER, SELFPAY ==
[2024-07-27 14:03] VITALS: BMI 32.8
--- NOTE | 2024-07-27 14:03 | A.OFFVIS_ITS ---
VS Expanded 07/27/24 14:03 Height 5 ft 3 in Weight 185 lb 3.13 oz BMI 32.8 Intake Visit Reasons: T2DM Allergies peanut Allergy (Severe, Verified 04/18/24 12:59) angioedema lisinopril [LISINOPRIL] Allergy (Intermediate, Verified 04/18/24 12:) RASH, cough zoster vaccine live [SHINGLES VACCINE] Allergy (Intermediate, Verified 04/18/24 12:) LOCALIZED REDNESS, SWELLING, FEVER,COUGH latex [LATEX] Allergy (Unknown, Verified 04/18/24:) RASH pineapple [PINEAPPLE] Allergy (Unknown, Verified 04/18/24:) RASH strawberry [STRAWBERRY] Allergy (Unknown, Verified 04/18/24:) RASH adhesive Allergy (Verified 04/18/24:) Blister Nutrition Presentation Details: Pt presents for MNT for T2DM Pt reports working on diet modifications Increasing walking having fish at least twice a week Including 2-3 fruits/day participates from meals on wheel 2 times day and choosing meals low in Na/DM hydration: 32 oz water per day trying new recipes BS Monitoring Most Recent Diabetes Results: Microalb/Creat Ratio TNP 06/07/24 Cholesterol 121 mg/dL (<200) 06/07/24 HDL Cholesterol 44 mg/dL (>40) 06/07/24 Triglycerides 106 mg/dL (<150) 06/07/24 Creatinine 0.91 mg/dL (0.5-1.4) 02/08/24 Blood Urea Nitrogen 19 mg/dL (9-16) H 02/08/24 Sodium 139 mmol/L (135-145) 02/08/24 Potassium 3.9 mmol/L (3.3-5.1) 02/08/24 Chloride 109 mmol/L (96-108) H 02/08/24 Carbon Dioxide 23 mmol/L (22-29) 02/08/24 Calcium 9.4 mg/dL (8.4-10.2) 02/08/24 AST 25 U/L (5-31) 06/07/24 ALT 21 U/L (0-31) 06/07/24 Total Protein 6.9 g/dL (6.5-8.0) 06/07/24 Albumin 3.8 g/dL (3.5-5.0) 06/07/24 [facility] Medical History COVID-19 Palpitation Precordial chest pain Hemorrhoids Abdominal bloating Abdominal cramping Back pain Encounter for monitoring anti-arrhythmic therapy Fracture of proximal phalanx of right ring finger Syncope and collapse Acute non-ST elevation myocardial infarction (NSTEMI) Fracture of lesser tuberosity of right humerus Fracture of proximal end of right humerus Family history of ovarian cancer Early satiety COPD (chronic obstructive pulmonary disease) Cataract GUADALUPE (obstructive sleep apnea) Obesity (BMI 30-39.9) Hemorrhoids with complication GUADALUPE (obstructive sleep apnea) Hemorrhoids with complication NSVT (nonsustained ventricular tachycardia) PVC (premature ventricular contraction) Surgical History History of cardiac cath S/P cardiac catheterization History of coronary artery stent placement History of esophagogastroduodenoscopy (EGD) Hx of colonoscopy History of shoulder surgery (~04/29/18) History of lumbar laminectomy Family History Father Cardiovascular disease Mother Osteoarthritis Family/Other Ovarian cancer, Onset Age: 30 Social History Household Members: Spouse Alcohol intake: never Patient Tobacco Use Status: Never used Tobacco service: No Current occupational status: unemployed Current occupation: rt handed Assessment & Plan Assessment & Plan (1) T2DM (type 2 diabetes mellitus): Code(s): E11.9 - Type 2 diabetes mellitus without complications Category: Medical Plan: Wt: 86 Kg ( 07/05 ), 84kg (08/05) Est kcal needs as per MSJ: 1600 (40% carb, 30% protein/fat) Est fluid needs as per 25-30 ml/d: 2500 Est prot per day as per 1 g/kg bw: 80 Recommend fiber intake : 8-10 g per day and gradually increase to 25-28 g per day for women and 35-38 g for men or as tolerated Recommend sodium intake per day : less than 1500 mg less than 2000 mg Educated patient on: ( R = reviewed V = verbalizes understanding N/R = needs review N/A = not applicable * Food sources of carbohydrate, adequate serving sizes and its role in various health conditions: R V N/R * Differences between complex carbohydrates a simple carbohydrates, role of fiber in diet: R * Lean protein sources of foods: R * Differences between types of fats and role in diet (mono on saturated fat fatty acids, saturated fatty acids, trans fats): R V N/R * Food sources of sodium in salt and healthy modifications for heart health in kidney health: R V R/V * Vitamins and minerals: R * Healthy plate method concept: R V * Physical activity: Benefits a precaution: R V N/R * Hypoglycemia protocol (rule of 15): R * Dietary prevention of Hyperglycemia: R Patient Instructions: Continue working on including fiber rich foods Include omega 3 fatty acids (fish , leafy greens, try seadweed, seeds you are able to tolerate) Coding Level of Care Code Nutr Indiv Subseq (74400) Diagnoses T2DM (type 2 diabetes mellitus) E11.9 Time Spent (min) 30
--- OUTSIDE RECORDS SUMMARY | 2024-07-27 16:18 | XMS_ITS | Encounter Summary ---
Author Organization [employer] Address [address] [facility] [address]t [place] [address] Care Team Providers Care Internet Network Specialist Name Role Phone Jenny Vázquez MD Primary Care Provider [phone] Reason for Visit * Reason Comments Med Refill Encounter Details Date Type Department Care Team (Late st Contact Info) Description 04/17/2023 Refill [facility] [address] [place], [place] [phone] Jenny Vázquez MD [address] [place] [address] Fibromyalgia Social History Tobacco Use Types Packs/Day [...] as of this encounter Plan of Treatment Upcoming Encounters Date Type Department Care Team (Late st Contact Info) Description 2025 1:00 PM EDT Office Visit [facility] [address] [place] [address] Marialuisa Parsons documented as of this encounter Visit Diagnoses Diagnosis Fibromyalgia Unspecified myalgia and myositis documented in this encounter Additional Health Concerns Assessment Noted Time PHQ-9 Depression Total Score: 0 10/22/19 23 1:17 PM EDT documented as of this encounter Care Teams Internet Network Specialist Relationship Specialty Start Date End Date Jenny Vázquez MD [address] [place] [address] PCP - General Family Medicine 04/13/18 documented as of this encounter
--- OUTSIDE RECORDS SUMMARY | 2024-07-27 16:18 | XMS_ITS | Encounter Summary ---
Author Organization [employer] Address [address] [facility] 7[address] [place] [address] Care Team Providers Care Home Economics Expert Name Role Phone Jenny Vázquez MD Primary Care Provider [phone] Reason for Visit * Reason Onset Date Comments Med Refill 06/08/2023 Encounter Details Date Type Department Care Team (Late st Contact Info) Description 06/08/2023 Refill [facility] [address] [place] [address] Loyda Clark MD [address] [place] [address] Fibromyalgia Social History Tobacco Use Types Packs/Day [...] Description 2025 1:00 PM EDT Office Visit [facility] [address] [place] [address] Marialuisa Parsons documented as of this encounter Visit Diagnoses Diagnosis Fibromyalgia Unspecified myalgia and myositis documented in this encounter Additional Health Concerns Assessment Noted Time PHQ-9 Depression Total Score: 0 10/22/19 23 1:17 PM EDT documented as of this encounter Care Teams Home Economics Expert Relationship Specialty Start Date End Date Jenny Vázquez MD [address] [place] [address] PCP - General Family Medicine 04/13/18 documented as of this encounter
--- OUTSIDE RECORDS SUMMARY | 2024-07-27 16:18 | XMS_ITS | Encounter Summary ---
Author Organization [employer] Address [address] [facility] 7[address] [place] [address] Care Team Providers Care Slusher Operator Name Role Phone Jenny Vázquez MD Primary Care Provider [phone] Encounter Details Date Type Department Care Team (Late st Contact Info) Description 03/10/2023 Abstract [facility] [address] [place] [address] Nathanael Crespo DDS [address] [place] [address] Social History Tobacco Use Types Packs/Day Years [...] Description 2025 1:00 PM EDT Office Visit [facility] [address] [place] [address] Marialuisa Parsons documented as of this encounter Visit Diagnoses Not on filedocumented in this encounter Additional Health Concerns Assessment Noted Time PHQ-9 Depression Total Score: 0 10/22/19 23 1:17 PM EDT documented as of this encounter Care Teams Slusher Operator Relationship Specialty Start Date End Date Jenny Vázquez MD [address] [place] [address] PCP - General Family Medicine 04/13/18 documented as of this encounter
--- OUTSIDE RECORDS SUMMARY | 2024-07-27 16:18 | XMS_ITS | Encounter Summary ---
Author Organization [employer] Address [address] [facility] 7[address] [place] [address] Care Team Providers Care Airplane And Engine Inspector Name Role Phone Jenny Vázquez MD Primary Care Provider [phone] Encounter Details Date Type Department Care Team (Late st Contact Info) Description 03/09/2023 Abstract [facility] [address] [place] [address] Nathanael Crespo DDS [address] [place] [address] Social History Tobacco Use Types Packs/Day Years [...] Description 2025 1:00 PM EDT Office Visit [facility] [address] [place] [address] Marialuisa Parsons documented as of this encounter Visit Diagnoses Not on filedocumented in this encounter Additional Health Concerns Assessment Noted Time PHQ-9 Depression Total Score: 0 10/22/19 23 1:17 PM EDT documented as of this encounter Care Teams Airplane And Engine Inspector Relationship Specialty Start Date End Date Jenny Vázquez MD [address] [place] [address] PCP - General Family Medicine 04/13/18 documented as of this encounter
--- OUTSIDE RECORDS SUMMARY | 2024-07-27 16:18 | XMS_ITS | Encounter Summary ---
Author Organization [employer] Address [address] [facility] 7t [place] [address] Care Team Providers Care Cancer Registrar Name Role Phone Jenny Vázquez MD Primary Care Provider [phone] Reason for Visit * Reason Onset Date Comments Nurse Triage 03/09/2023 Encounter Details Date Type Department Care Team (Late st Contact Info) Description 03/09/2023 Telephone [facility] [address] [place] [address] Jenny Vázquez MD [address] [place] [address] Nurse Triage Social History Tobacco Use Types [...] Triage call Pt reports was seen in [facility] 03/06/23 and tested positive for Covid. Pt [...] needed. Follow up ED visit apt with SPORTS PHYSIOLOGIST [facility] 03/19/23 @ 115pm. Insurance is verified asactive prior to booking. Protocol Used: COVID-19 - Diagnosed or Suspected (Adult) Protocol-Based Disposition: Home Care Positive Triage Question: * COVID-19 diagnosed by doctor (or SPORTS PHYSIOLOGIST/PA) and mild symptoms (e.g., cough, fever, others) and no complications or SOB * All higher-acuity triage questions were negative Care Advice Discussed: * Reassurance and Education - Diagnosed With COVID-19 by Doctor (or SPORTS PHYSIOLOGIST/PA) and Mild Symptoms * General Care Advice [...] (high-pitched whistling sound), pt was seen at [facility] on 03/06 for asthma. Pt was tested positive for COVID and is still symptomatic. The caller accepted this outcome Please contact pt at [phone] documented in this encounter Plan of Treatment Upcoming Encounters Date Type Department Care Team (Late st Contact Info) Description 2025 1:00 PM EDT Office Visit [facility] [address] [place] [address] Marialuisa Parsons documented as of this encounter Visit Diagnoses Not on filedocumented in this encounter Additional Health Concerns Assessment Noted Time PHQ-9 Depression Total Score: 0 10/22/19 23 1:17 PM EDT documented as of this encounter Care Teams Cancer Registrar Relationship Specialty Start Date End Date Jenny Vázquez MD [address] [place] [address] PCP - General Family Medicine 04/13/18 documented as of this encounter
--- OUTSIDE RECORDS SUMMARY | 2024-07-27 16:18 | XMS_ITS | Encounter Summary ---
Author Organization [employer] Address [address] [facility] [address] [place] [address] Care Team Providers Care Development Executive Name Role Phone Jenny Vázquez MD Primary Care Provider [phone] Encounter Details Date Type Department Care Team (Late st Contact Info) Description 10/31/2022 Abstract [facility] [address] [place] [address] Jenny Vázquez MD [address] [place] [address] Social History Tobacco Use Types Packs/Day Years [...] Description 2025 1:00 PM EDT Office Visit [facility]ULT [facility] [address] [place] [address] Marialuisa Parsons documented as of this encounter Procedures Procedure Name Priority Date/Time Associated Diagnosis Comments PAP/HPV Routine 10/02/2022 documented in this encounter Results * Pap Smear (10/02/2022) Pap Negative for intraephithelial lesion or malignancy Negative for intraephithelial lesion or malignancy, Other HPV Undetected Result [facility] Unassigned Pcp HEALTH MAINTENANCE Final Result documented in this encounter Visit Diagnoses Not on filedocumented in this encounter Additional Health Concerns Assessment Noted Time PHQ-9 Depression Total Score: 0 10/22/19 23 1:17 PM EDT documented as of this encounter Care Teams Development Executive Relationship Specialty Start Date End Date Jenny Vázquez MD [address] [place] [address] PCP - General Family Medicine 04/13/18 documented as of this encounter
--- OUTSIDE RECORDS SUMMARY | 2024-07-27 16:19 | XMS_ITS | Encounter Summary ---
Author Organization [email or web address] Address [address] [facility] [address] [place] [address] Care Team Providers Care [place] Measurer Name Role Phone Jenny Vázquez MD Primary Care Provider [phone] Encounter Details Date Type Department Care Team (Late st Contact Info) Description 12/30/2023 Orders Only [facility] MED[facility] [address] [place] [address] Jenny Vázquez MD [address] [place] [address] Primary hypertension (Primary Dx); Dyslipidemia; Fibromyalgia Social [...] Description 2025 1:00 PM EDT Office Visit [facility]ULT [facility] [address] [place] [address] Marialuisa Parsons documented as of this encounter Visit Diagnoses Diagnosis Primary hypertension- Primary Unspecified essential hypertension Dyslipidemia Other and unspecified hyperlipidemia Fibromyalgia Unspecified myalgia and myositis documented in this encounter Additional Health Concerns Assessment Noted Time PHQ-9 Depression Total Score: 0 10/22/19 23 1:17 PM EDT documented as of this encounter Care Teams [place] Measurer Relationship Specialty Start Date End Date Jenny Vázquez MD [address] [place] [address] PCP - General Family Medicine 04/13/18 documented as of this encounter
--- OUTSIDE RECORDS SUMMARY | 2024-07-27 16:19 | XMS_ITS | Encounter Summary ---
Author Organization [employer] Address [address] [facility] 7[address] [place] [address] Care Team Providers Care Clinical Specialist Vascular Name Role Phone Jenny Vázquez MD Primary Care Provider [phone] Encounter Details Date Type Department Care Team (Late st Contact Info) Description 04/29/2022 Orders Only [facility] [address] [place] [address] Lorraine Arroyo LPN Social History Tobacco Use [...] Description 2025 1:00 PM EDT Office Visit [facility]ULT [facility] [address] [place] [address] Marialuisa Parsons documented as of this encounter Procedures Procedure Name Priority Date/Time Associated Diagnosis Comments LIPID PANEL, STANDARD Routine 11/05/2022 8:43 AM EDT PAP SMEAR Routine 10/02/2022 3:36 PM EDT documented in this encounter Results * Lipid Panel, Standard (11/05/2022 8:43 AM EDT) Triglycerides 76 mg/dL [facility] Comment:Desirable Triglyceri de: less than 150 mg/dLBorderline High Triglyceride 150-199 mg/dLHigh Triglyceride: 200-499 mg/dLVery High Triglyceride: greater than or equal to 5OO mg/dL Cholesterol 118 mg/dL [facility] Comment:Desirable Cholestero l: less than 200 mg/dLBorderline High Cholesterol: 200-239 mg/dLHigh Cholesterol: greater than 239 mg/dL LDL Cholesterol Calculated 56 mg/dl [facility] Comment:Desirable LDL: less than 100 mg/dLNear Optimal/Above Optimal LDL: 110- 129 mg/dLBorderline High LDL: 130-159 mg/dLHigh LDL: 160-189 mg/dLVery High LDL: greater than or equal to 190 mg/dL HDL Cholesterol 47 mg/dL [facility] Comment:Desirable HDL: great er than 40 mg/dL Note: This HDL assay may give artificially low results in patients with liver disease. 11/05/2022 8:43 AM EDT 11/05/2022 11:40 AM EDT us Jenny Vázquez MD LAB BLOOD ORDERABLES Final Resul t [facility] [place] [address] [phone] * Pap Smear (10/02/2022 3:36 PM EDT) 10/02/2022 3:36 PM EDT 10/06/2022 12:00 PM EDT Narrative [facility] - 10/27/2022 10:49 AM EDT ----- ------- Name: Araseli Leary ?Age/Sex: 67/F ? : 1955 Unit#: [id number] ?? Attend Dr: Argentina Mak CNM ?Re10/02/22 ?Status: DEP REF ? Location: HO.LNP ?Disch: ? ----- ------- SPEC : [id number] ? RECD: 10/06/22-1199 ? STATUS: ??SOUT ? REQ NUM: [id number] ? TODD: 10/02/22-1536 ? SUBM DR: Argentina Mak CNM ? ENTERED: ??10/06/22-1318 ?SP TYPE: Pap Smr ?OTHR DR: Jenny [...] 67, 69) ? HPV testing performed by [employer] [place], [place]. ??See reference laboratory ?? portion of the EMR for entire report. ?Clinical Information LMP: Menopausal Previous PAP test: 2018, [facility] ? Material Received ?? ThinPrep-Cervical Copies To: ?? Argentina Mak CNM ?? [address] [facility] ?? [place] [address] ?? [phone] ?? Jenny Vázquez MD ?? [address] ?? [place] [address] ?? ----- ------- Signed (signature on file) Berlin Rodriguez MD 10/27/22 0289 ? ----- ------- ? END OF REPORT ? [facility] External Provider LAB CYT OLOGY ORDERABLES Final Result Performing Organization Address City/State/[facility] Co de Phone Number [facility] [address] [place] [address] [phone] documented in this encounter Visit Diagnoses Not on filedocumented in this encounter Care Teams Clinical Specialist Vascular Relationship Specialty Start Date End Date Jenny Vázquez MD [address] [place] [address] PCP - General Family Medicine 04/13/18 documented as of this encounter
--- OUTSIDE RECORDS SUMMARY | 2024-07-27 16:19 | XMS_ITS | Clinical Summary ---
Author Organization [employer] Address [address] [facility] [address] [place] [address] Care Team Providers Care Garment Liner Name Role Phone Jenny Vázquez MD Primary Care Provider [phone] Allergies Active Allergy Reactions Criticality Noted Date Comments Martir Inhibitors 04/21/2022 Ascorbate 02/05/2024 Latex 02/05/2024 Lisinopril Hives 02/18/2023 New Skin 02/05/2024 Peanut Oil 04/21/2022 Peanut-Containing Drug Products 01/12 Pineapple 02/05/2024 [place] Extract Other 02/08/2024 Zoster Vaccine Live 12/12/2016 Medications * This document contains information received from the source organization and may not represent a complete record from that organization. chlorhexidine (Peridex) 0.12 % solutionIndicati ons:Periodontal disease RINSE FOR 30 SECONDS WITH A HALF OUNCE (15ml) TWICE DAILY, SPIT OUT -- DO NOT SWALLOW. AFTER MEALS 473 mL 1 3 Active Aspirin Low Dose 81 MG EC tablet Take 81 mg by mouth in the morning. 2 Active nitroglycerin (Nitrostat) 0.4 MG SL tablet DISSOLVE 1 TABLET UNDER THE TONGUE EVERY 5 MINUTES NEEDED FOR CHEST PAIN. CALL 911 IF NO RELIEF 2 Active triamcinolone (Kenalog) 0.1 % ointment APPLY TO THE AFFECTED AREA(S) TWICE DAILY 3 Active fluticasone (Flonase) 50 MCG/ACT nasal sprayIndications :Allergic rhinitis, unspecified seasonality, unspecified trigger INSTILL 2 SPRAYS IN EACH NOSTRIL ONCE DAILY 16 g 11 3 Active Spiriva Respimat 1.25 MCG/ACT inhalerIndicatio ns:Moderate persistent asthma without complication INHALE 2 PUFFS BY MOUTH EVERY DAY 1 each 11 3 Active budesonide-formo terol (Symbicort) 160-4.5 MCG/ACT inhalerIndicatio ns:Moderate persistent asthma without complication inhale 1 puff by inhalation route 2 times every day in the morning and evening 1 each 11 3 Active Spacer/Aero-Hold ing Chambers (AeroChamber MV) inhalerIndicatio ns:Moderate persistent asthma without complication Use as instructed 1 each 2 3 Active Hydrocortisone, Perianal, 1 % cream Apply to anorectal area as needed 28 g 2 3 Active lidocaine (Xylocaine) 5 % ointment Apply to anal area once or twice daily as needed 30 g 2 3 Active pantoprazole (ProtoNix) 40 MG EC tablet TAKE 1 TABLET BY MOUTH EVERY MORNING 90 tablet 3 3 Active clopidogrel (Plavix) 75 MG tablet TAKE 1 TABLET BY MOUTH ONCE DAILY 90 tablet 3 3 Active metoprolol succinate XL (Toprol-XL) 50 MG 24 hr tablet TAKE 2 TABLETS BY MOUTH ONCE DAILY IN THE MORNING 180 tablet 3 3 Active Ventolin HFA 108 (90 Base) MCG/ACT inhalerIndicatio ns:Moderate persistent asthma without complication INHALE 2 PUFFS BY MOUTH EVERY 4 HOURS NEEDED SHORTNESS OF BREATH OR FOR WHEEZING 18 g 3 4 Active loratadine (Claritin) 10 MG tabletIndication s:Allergic rhinitis, unspecified seasonality, unspecified trigger TAKE 1 TABLET BY MOUTH EVERY DAY IN THE MORNING 90 tablet 4 Active atorvastatin (Lipitor) 80 MG tablet TAKE 1 TABLET BY MOUTH AT BEDTIME 90 tablet 3 4 Active isosorbide mononitrate ER (Imdur) 60 MG 24 hr tablet Take 60 mg by mouth Once per day. 4 Active metoclopramide (Reglan) 5 MG tablet Take 5 mg by mouth 4 times daily. Active pregabalin (Lyrica) 50 MG capsuleIndicatio ns:Fibromyalgia TAKE 1 CAPSULE BY MOUTH EVERY TWELVE HOURS 60 capsule 3 4 Active montelukast (Singulair) 10 MG tabletIndication s:Moderate persistent asthma without complication,All ergic rhinitis, unspecified seasonality, unspecified trigger Take 1 tablet (10 mg) by mouth at bedtime. 90 tablet 3 4 Active colchicine 0.6 MG tablet TAKE 1 TABLET BY MOUTH EVERY DAY FOR 7 DAYS 4 Active EPINEPHrine (Epipen) 0.3 MG/0.3ML injection syringe USE DIRECTED FOR ANAPHYLAXIS Active benzocaine-menth ol (Chloraseptic) 6-10 MG lozengeIndicatio ns:Moderate persistent asthma with acute exacerbation Dissolve 1 lozenge in the mouth every 2 (two) hours if needed for sore throat. 100 lozenge 4 04/07/20 25 Active semaglutide (Ozempic) 2 MG/1.5ML solution pen-injector Inject 0.5 mg under the skin 1 (one) time per week. 1.5 mL 11 5 Active Active Problems Problem Noted Date Diagnosed Date [...] baking, cleaning her home and listening to zoroastrianism music. Araseli reports taking medication prescribed by her PCP and having improvements from them. clinician will provide additional support if needed during next medical appointment. Dental abscess 02/18/2023 Ischemic heart disease 08/05/2022 Assessment & Plan (06/06/2024 3:21 PM EST): -[employer] Team Member: Dr. Arsenio Bernard and Janna Cruz NP, [...] discontinued when she was last seen by trailer chief in Apr 2024. -Continue Metoprolol, ASA and Atorvastatin -Continue isosorbide -Cont working on lifestyle modifications. Assessment & Plan (02/15/2024 1:39 PM EST): -[employer] [facility] last seen on 01/08/23 - NSTEMI in [...] Assessment & Plan (01/28/2023 8:56 PM EDT): -[employer] [facility] last seen on 01/08/23 - NSTEMI in [...] Assessment & Plan (10/28/2022 7:06 AM EDT): -[employer] Team Member: Dr. Arsenio Bernard, last seen on 08/05/22; upcoming Pre-Op appt [...] Assessment & Plan (08/15/2022 6:38 AM EDT): -[employer] Team Member: Dr. Arsenio Bernard, appt today - NSTEMI in September2021 -s/p [...] on 10/20/22. Being scheduled for Pre-Op with [employer] Member. Pt needs Cardiac Clearance Before Hemorrhoidectomy. - [...] she would like me to call her trailer chief and try to get a sooner appointment [...] 1:45 PM EST): - last colonoscopy in 2016, tubular adenoma, recommended to have colonoscopy in 5 years - need for at least 1 year of uninterrupted dual antiplatelet therapy post- stent, colonoscopy is being postponed. Assessment & Plan (08/15/2022 6:41 AM EDT): - last colonoscopy in 2016, tubular adenoma, recommended to have colonoscopy in 5 years - refer to GI for colonoscopy Mixed conductive and sensorineural hearing loss, bilateral 05/12/2016 Assessment & Plan (02/10/2024 8:13 AM EDT): - evaluated by edge runner - wears hearing aids Assessment & Plan (08/15/2022 6:43 AM EDT): - evaluated by edge runner - wears hearing aids Type 2 diabetes mellitus 04/03/2015 Assessment & Plan (06/14/2024 11:16 AM EST): A1c 6.3 today 06/06/24, trending down -No longer taking metformin. -Discussed about restarting it if her glycemic control continues to worsen. -Avoid / prevent getting systemic steroids for her allergy and asthma. -Continue lifestyle modification. -Continue Semaglutide, will increase its dose -Continue SMBG. -Last eye exam: Feb 2023, had an appointment on 03/01/24 (requesting a note) -Last foot exam: May 2024, plantar fasciitis, ingrown toenail, sees classified copy control clerk. -Last microalbumin test: 11/05/22 UACR 4.9; -Last [...] exam: 08/05/22, plantar fasciitis, ingrown toenail, sees classified copy control clerk. -Last microalbumin test: 11/05/22 UACR 4.9; -Last [...] exam: 08/05/22, plantar fasciitis, ingrown toenail, sees classified copy control clerk. -Last microalbumin test: 11/05/22 UACR 4.9; -Last [...] exam: 08/05/22, plantar fasciitis, ingrown toenail, sees classified copy control clerk. -Last microalbumin test: 10/25/18 UACR no microalbuminuria [...] exam: 08/05/22, plantar fasciitis, ingrown toenail, sees classified copy control clerk. -Last microalbumin test: 10/25/18 UACR no microalbuminuria [...] Plan (08/05/2022 9:28 AM EDT): Seen by trailer chief, Dr. Cesar, on 01/09/22 for CAD and PVC f/u: -TTE was ordered by [employer] Team Member -most recent Holter monitor in Dec 2019 PVC 3%. -09/20/21 Echo LVEF 45-50%, p/s Stent -Continue metoprolol succinate 50 mg TWO tablets daily -Continue BB -Previously flecainide 100 mg BID. d/c d/t hospitalization Fibromyalgia 07/20/2014 Assessment & Plan (06/06/2024 3:28 PM EST): Followed by General Manager Land Department -Continue Mustapha, use judiciously -Continue staying active Assessment & Plan (02/10/2024 8:12 AM EDT): Followed by General Manager Land Department -Continue Lyrica, use judiciously -Continue staying active Assessment & Plan (08/05/2022 9:27 AM EDT): Followed by General Manager Land Department -Continue Lyrica, use judiciously -Continue staying active Allergic rhinitis 03/24/2013 Assessment & Plan (02/15/2024 1:48 PM EST): - continue loratadine and montelukast - following with sales product specialist Assessment & Plan (10/21/2022 2:19 PM EDT): - continue loratadine and montelukast - will check status of referral Assessment & Plan (08/15/2022 6:43 AM EDT): - continue loratadine and montelukast - refer to a new sales product specialist Depressive disorder 03/24/2013 Hypertension 03/24/2013 Assessment [...] & Plan (06/06/2024 3:27 PM EST): - evaluation manager changed mask for nasal pillow per patient's request in May 2023 - recommended CPAP use Assessment & Plan (02/14/2024 5:29 PM EST): - evaluation manager changed mask for nasal pillow per patient's request in May 2023 - recommended CPAP use Assessment & Plan (01/28/2023 8:51 PM EDT): - continue CPAP Asthma 12/10/2012 Assessment & Plan (06/06/2024 6:25 AM EST): - Previously followed by Allergy / translational specialist : Dr. Ahn - Seen by new evaluation manager at [facility] [place] May [place] - No history of [...] EST): - Previously followed by Allergy / translational specialist : Dr. Ahn - Seen by new evaluation manager at [facility] in May 2023 - No history of intubation, Hx pneumonia and influenza in Apr 2018 - Severe exacerbation 1 or 2 times / year - Continue Symbicort and Singulair as maintenance. - Continue albuterol HFA / neb prn as rescue. Assessment & Plan (01/28/2023 8:51 PM EDT): - Previously followed by Allergy / translational specialist : Dr. Ahn - Seen by new evaluation manager at [facility] in August 2022 - No history of intubation, Hx pneumonia and influenza in Apr 2018 - Severe exacerbation 1 or 2 times / year - Continue Symbicort and Singulair as maintenance. - Continue albuterol HFA / neb prn as rescue. Assessment & Plan (10/28/2022 6:57 AM EDT): - Previously followed by Allergy / translational specialist : Dr. Ahn - Seen by new evaluation manager at [facility] in August 2022 - No history of intubation, Hx pneumonia and influenza in Apr 2018 - Severe exacerbation 1 or 2 times / year - Continue Symbicort and Singulair as maintenance. - Continue albuterol HFA / neb prn as rescue. Assessment & Plan (08/15/2022 6:29 AM EDT): - Allergy / translational specialist : Dr. Ahn, needs a new allergy computer technical support specialist - No history of intubation, Hx [...] organization. Date Type Department Care Team Description 06/16/2024 Telephone [facility] [address] [place] [phone] Jenny Vázquez MD 06/06/2024 3:15 PM EST Office Visit [facility] [address] [place] [address] Jenny Vázquez MD Primary hypertension (Primary Dx); Obstructive sleep apnea syndrome; Type 2 diabetes mellitus without complication, without long-term current use of insulin (CMS/HCC); Fibromyalgia; Dyslipidemia; Ischemic heart disease; Nonsustained ventricular tachycardia (CMS/HCC); Moderate persistent asthma without complication; Tubular adenoma of colon; Gastroesophageal reflux disease, unspecified whether esophagitis present; Left upper quadrant pain; Dietary counseling; Exercise counseling; Class 1 obesity due to excess calories with serious comorbidity and body mass index (BMI) of 34.0 to 34.9 in adult 06/06/2024 Travel 06/01/2024 Telephone [facility] [address] [place] [address] Jneny Vázquez MD Chart Prep 05/24/2024 Telephone [facility] [address] [place], [place] [phone] Jenny Vázquez MD pa request from Last 3 Months Immunizations Name Administration [...] 06/06/2024 3:25 PM EST Plan of Treatment Upcoming Encounters Date Type Department Care Team (Late st Contact Info) Description 2025 1:00 PM EDT Office Visit [facility] [address] [facility] [place] [address] Marialuisa Parsons Health Maintenance Due Date Last Done Comments CT Colonography 1955 FIT DNA/Cologuard 1955 FIT 1955 FOBT 1955 Sigmoidoscopy 1955 Hepatitis C Screening 01/18/1974 RSV Patients and Patients Aged 60 years or older (1 - Risk 60-74 years 1-dose series) 2016 Dental Prophylaxis 10/28/2016 04/29/2016, 0 10/23/2015, 03/04/2013 Zoster Vaccines (2 of 3) 01/13/2017 11/18/2016 Dental Oral Exam 08/20/2023 02/18/2023, 01/2021, 10/19/2015, Additional history exists Dental X-Ray: Full Mouth 08/22/2023 08/20/2020 COVID-19 Vaccine ( season) 2023 11/18/2021, 08/04/2020, 07/11/2020 Dental X-Ray: Bitewings 02/20/2024 02/19/20 23, 08/20/2020, 10/19/2015 Depression Monitoring 10/31/2024 05/03/2024, 025 Diabetes: Hemoglobin A1C 12/04/2024 025, 02/08/2024, 11/05/2022, Additional history exists Alcohol/Substance Use Screening 02/07/2025 02/08/2024 SDOH Screening 02/07/2025 02/08/2024 Eye Exam 03/03/2025 03/03/2023 Depression Screening 05/03/2025 05/03/2024, 05/03/19 25 Diabetes: Foot Exam 06/06/2025 06/06/2024 Tobacco Screening 06/06/2025 06/06/2024 Diabetes: Urine Protein Screening 06/07/2025 06/07/2024, 11/05/2022, 02/18/2022 Lipid Panel 06/07/2025 06/07/2024, 10/12, 01/09/2022 Mammogram 02/11/2026 02/12/2024, 01/12, 02/04/2022, Additional history [...] complication, without long-term current use of insulin (CMS/HCC) Primary hypertension LIPID PANEL WITH REFLEX TO DIRECT LDL Routine 06/07/2024 10:46 AM EST Dyslipidemia POCT GLYCOSYLATED HEMOGLOBIN (HGB A1C) Routine 06/06/2024 3:30 PM EST Type 2 diabetes mellitus without complication, without long-term current use of insulin (CMS/HCC) POCT GLUCOSE Routine 06/06/2024 3:30 PM EST Type 2 diabetes mellitus without complication, without long-term current use of insulin (CMS/HCC) BI MAMMOGRAM SCREENING TOMOSYNTHESIS BILATERAL Routine 02/12/2024 [...] Recently Relevant to Health Maintenance Results * TSH with Reflex to Free T4 (06/07/2024 10:46 AM EST) TSH reflex Free T4 2.20 0.32 - 4.0 uIU/mL [facility] Blood 06/07/2024 10:4 6 AM EST 06/07/2024 11:30 AM EST us Jenny Vázquez MD LAB BLOOD ORDERABLES Final Resul t [facility] [address] [place] [address] [phone] * Lipid Panel with Reflex to Direct LDL (06/07/2024 10:46 AM EST) Triglycerides 106 <150 mg/dL [facility] Comment:Desirable Triglyceri de: less than 150 mg/dLBorderline High Triglyceride 150-199 mg/dLHigh Triglyceride: 200-499 mg/dLVery High Triglyceride: greater than or equal to 5OO mg/dL Cholesterol 121 <200 mg/dL [facility] Comment:Desirable Cholestero l: less than 200 mg/dLBorderline High Cholesterol: 200-239 mg/dLHigh Cholesterol: greater than 239 mg/dL LDL Cholesterol Calculated 56 <100 mg/dL [facility] Comment:Desirable LDL: less than 100 mg/dLNear Optimal/Above Optimal LDL: 110- 129 mg/dLBorderline High LDL: 130-159 mg/dLHigh LDL: 160-189 mg/dLVery High LDL: greater than or equal to 190 mg/dL HDL Cholesterol 44 >40 mg/dL [facility] Comment:Desirable HDL: great er than 40 mg/dL Note: This HDL assay may give artificially low results in patients with liver disease. Blood 06/07/2024 10:4 6 AM EST 06/07/2024 11:30 AM EST us Jenny Vázquez MD LAB BLOOD ORDERABLES Final Resul t Performing Organization Address City/[facility] Co de Phone Number [facility] [address] [place] [phone] * Albumin, Random Urine W/Creatinine (06/07/2024 10:46 AM EST) Creatinine, Urine 93.36 mg/dL [facility] Microalbumin Urine <5.0 mg/L [facility] Microalbum Creatinine Ratio Ur TNP <30 ug/mg cr [facility] Comment:Unable to calculate albumin/creatinine ratio due to lowmicroalbumin or creatinine result. Urine 06/07/2024 10:4 6 AM EST 06/07/2024 11:32 AM EST Jenny Vázquez MD LAB URINE ORDERABLES Final Resul t Performing Organization Address City/[facility]/ZIP Co de Phone Number [facility] [address] [place] [phone] * (ABNORMAL) Hepatic Function Panel (06/07/2024 10:46 AM EST) Bilirubin, Total 0.5 0.0 - 1.0 mg/dL [facility] Bilirubin, Direct 0.2 0.0 - 0.5 mg/dL [facility] Aspartate Amino Transferase 25 5 - 31 U/L [facility] Comment:Slight Hemolysis.Int erpret result with caution. Alanine Aminotransferase 21 0 - 31 U/L [facility] Total Protein 6.9 6.5 - 8.0 g/dL [facility] Albumin Level 3.8 3.5 - 5.0 g/dL [facility] Alkaline Phosphatase 121(H) 39 - 117 U/L [facility] Blood Venous blood specimen / Unknown 06/07/2024 10:46 AM EST 06/07/2024 11:30 AM EST Jenny Vázquez MD LAB BLOOD ORDERABLES Final Resul t Performing Organization Address City/State/[facility] Co de Phone Number [facility] [address] [place] [phone] * (ABNORMAL) POCT glycosylated hemoglobin (Hgb A1c) (06/06/2024 3:30 PM EST) Pathologist [facility] Hemoglobin A1C 6.3(A) 4.0 - 6.0 % QC Media Lot # [id number] Lot# Expiration Date Blood Capillary blood specimen / Unknown 06/06/2024 3:30 PM EST Jenny Vázquez MD POINT OF CARE TEST ENTER/EDIT OR DERABLES Final Result * POCT glucose manually resulted (06/06/2024 3:30 PM EST) Pathologist [facility] Glucose Blood, POC 110 60 - 200 mg/dL QC Media Lot # [id number] Lot# Expiration Date Blood Capillary blood specimen / Unknown 06/06/2024 3:30 PM EST Jenny Vázquez MD POINT OF CARE TEST ENTER/EDIT OR DERABLES Final Result * BI Mammogram Screening Tomosynthesis Bilateral (02/12/2024 2:03 PM EDT) Anatomical Region Laterality Modality Breast Bilateral Mammography 02/12/2024 2:03 PM EDT Narrative 02/22/2024 7:44 PM EST ? [facility] ? [address] ?[place] [address] ? Mammography Report ? Signed ? Patient: Leary,Araseli ?MR#: [id number] ?? [id number] ? : 1955 ?Acct:[id number] ? Age/Sex: 69 / F ?ADM Date: 02/12/24 ? Loc: HO.MAMMO ? Attending Dr: Jenny Vázquez MD ? Ordering Physician: Jenny Vázquez MD ?Results: 1Negative ? Date of Service: 02/12/24 ?Follow Up: 1 Year From Orig ?? inal Mammogram ? Procedure(s): MM tomosynthesis screening BI ?? Accession Number(s): [id number] ? cc: Jenny Vázquez MD ? EXAMINATION: [...] ??Celine Mendez DO ??02/22/2024 07:41 PM EST ? Dictated By: ?Celine Mendez DO ? Signed By: ?<Electronically signed by Celine Mendez, DO in OV> ? 02/22/24 1941 ? DD/ 1403 ? TD/TT: 02/12/24 1403 ? [employer] Finisher: ? Procedure Note Jaxon, Image - 02/22/2024 [facility] [address] [place] [address] Mammography Report Signed Patient: Jose M Leary#: [id number] : 1955cct:[id number] Age/Sex: 69 / FADM Date: 02/12/24 Loc: [facility]GAR.DAMIANO Attending Dr: Jenny Vázquez MD Ordering Physician: Jenny Vázquezesults: 1Negative Date of Service: 02/12/24Follow Up: 1 Year From Orig inal Mammogram Procedure(s): MM tomosynthesis screening BI Accession Number(s): [id number] cc: Jenny Vázquez MD EXAMINATION: MM SCREENING [...] by: Celine Mendez DO 02/22/2024 07:41 PM EST Dictated By: Celine Mendez DO Signed By: <Electronically signed by Celine Mendez DO in OV> 02/22/241940 DD/ 02 TD/TT: 02/12/241402 [employer] Finisher: Jenny Vázuqez MD IMG BI PROCEDURES Edited Result - Final * Diabetes Eye Exam (03/03/2023) Eye Exam Normal Normal Historical Provider HEALTH MAINTENANCE Final Result * Colonoscopy (12/09/2016) Colonoscopy Normal Normal 12/09/2016 Kerri Alejo HEALTH MAINTENANCE Final Result from Last 3 Months or Most Recently Relevant to Health Maintenance Insurance [address] [place] [id number] HSN FULL [employer] MEDICARE REPLACEMENT [address] [place] [address] DENTAL - HSN FULL (MEDICAID) [address] [place] [address] [address] [place] [address] [address] [place] [address] Care Teams Garment Liner Relationship Specialty Start Date End Date Jenny Vázquez MD [address] [place] [phone] PCP - General Family Medicine 04/13/18
== END 2024-07-27 14:34 | disposition home or self-care (01) ==
LOC: HO.ENCR 13:38
PROVIDERS: PCP Family Medicine; Visit Provider Dietitian, Registered
DX: E11.9 Type 2 diabetes mellitus without complications (principal)

== ENCOUNTER → 2024-07-27 13:38 | Outpatient (BNVA) | payer MEDICARE, OTHER, SELFPAY | PROVIDERS: PCP Family Medicine; Visit Provider Dietitian, Registered | DX: E11.9 Type 2 diabetes mellitus without complications (principal) | CPT/HCPCS: 97803 ==

== ENCOUNTER 2024-08-03 14:50 | Outpatient (AMB) | payer MEDICARE, SELFPAY ==
--- NOTE | 2024-08-03 15:02 | A.OFFVIS_ITS ---
Vital Signs 08/03/24 15:04 Height 5 ft 3 in Weight 185 lb BMI 32.8 BP 109/68 Blood Pressure Location Lt brachial Position Sitting Pulse 76 Pulse Oximetry (%) 95 Oxygen Delivery Method Room Air Intake Visit Reasons: Follow up CIC, paresis, GERD Intake Note: Patient follow up for CIC, paresis and GERD. Patient denies any GI issues Core Blower Operator Required: No Core Blower Operator Name: [facility] Interpeter Accompanied by: Family/Other Allergies peanut Allergy (Severe, Verified 08/03/24 15:02) angioedema lisinopril [LISINOPRIL] Allergy (Intermediate, Verified 08/03/24 15:02) RASH, cough zoster vaccine live [SHINGLES VACCINE] Allergy (Intermediate, Verified 08/03/24 15:02) LOCALIZED REDNESS, SWELLING, FEVER,COUGH latex [LATEX] Allergy (Unknown, Verified 08/03/24 15:02) RASH pineapple [PINEAPPLE] Allergy (Unknown, Verified 08/03/24 15:02) RASH strawberry [STRAWBERRY] Allergy (Unknown, Verified 08/03/24 15:02) RASH adhesive Allergy (Verified 08/03/24 15:02) Blister HPI HPI Follow up CIC, paresis, GERD: Details: Assessment & Plan (1) GERD (gastroesophageal reflux disease): Code(s): K21.9 - Gastro-esophageal reflux disease without esophagitis Category: Medical (2) Chronic idiopathic constipation: Code(s): K59.04 - Chronic idiopathic constipation Category: Medical Plan She is now taking the reglan 5mg qid and no a/e and it is controlling her GERD and GI conditions well. She also continues on the pantoprazole and simethicone. She is still waiting for EP studies to determine her cardiac clearance prior to scopes. ROV 6 mos. Medications: Refilled metoclopramide HCl (Reglan) 5 mg PO QIDACHS 120 tabs 6RF K30 - Functional dyspepsia pantoprazole 40 mg PO QAM 30 tabs 6RF simethicone after meals 180 mg PO QID 120 caps 6RF 30 days R14.0 - Abdominal distension (gaseous) COLONOSCOPY Waiting until she is cleared from Cardiology after stent placement BIOPSY TODAYS VISIT She has been lost to follow-up since 11/2023 She is now taking the omeprazole and reglan 5mg qid and no a/e and it is controlling her GERD she is not using the simethicone as frequently only as needed and she asked me to hold this medication for now and we will. She is agreeable not having a colonoscopy since she has about 2 or 3 months out from her cardiac catheterization and is doing well. Her cardiac condition has completely stabilized and she is not on any anticoagulation. We will get this scheduled. Her GUADALUPE and her asthma is well controlled. There are no prior problems with anesthesia or sedation. There are no infectious disease problems. Return office visit in 6 months or after the colonoscopy whichever comes 1st. She is having more trouble with roids, wants cream and a re referral to surgery. ON LICENSE OF [facility] Medical History (Updated 08/03/24 @ 16:50 by DYLAN Torres) COVID-19 Palpitation Precordial chest pain Hemorrhoids Abdominal bloating Abdominal cramping Back pain Encounter for monitoring anti-arrhythmic therapy Fracture of proximal phalanx of right ring finger Syncope and collapse Acute non-ST elevation myocardial infarction (NSTEMI) Fracture of lesser tuberosity of right humerus Fracture of proximal end of right humerus Family history of ovarian cancer Early satiety COPD (chronic obstructive pulmonary disease) Cataract GUADALUPE (obstructive sleep apnea) Obesity (BMI 30-39.9) Hemorrhoids with complication GUADALUPE (obstructive sleep apnea) Hemorrhoids with complication NSVT (nonsustained ventricular tachycardia) PVC (premature ventricular contraction) Surgical History (Updated 08/03/24 @ 15:03 by DYLAN Torres) History of cardiac cath S/P ablation of ventricular arrhythmia S/P cardiac cath S/P cardiac catheterization History of coronary artery stent placement History of esophagogastroduodenoscopy (EGD) Hx of colonoscopy History of shoulder surgery (~04/29/18) History of lumbar laminectomy Family History Father Cardiovascular disease Mother Osteoarthritis Family/Other Ovarian cancer, Onset Age: 30 Social History Household Members: Spouse Alcohol intake: never Patient Tobacco Use Status: Never used Tobacco service: No Current occupational status: unemployed Current occupation: rt handed Review of Systems Const Denies fatigue, Denies fever(s), Denies night sweats, Denies poor appetite and Denies weight loss Eyes Details: glasses Reports requires corrective lenses ENT Reports Normal hearing present, Denies dental pain, Denies dysphagia, Denies hearing loss, Denies mouth pain, Denies odynophagia, Denies throat swelling, Denies tongue swelling and Reports other (Dentition adequate) GI Details: Denies abdominal pain, Denies melena, Denies bloating, Denies hematochezia, Denies constipation, Denies GI cramping, Denies dysphagia, Denies excessive flatus, Denies early satiety, Denies heartburn, Denies diarrhea, Denies nausea, Denies odynophagia, Denies vomiting and Denies hematemesis Skin/Breast Denies pruritus, Denies lesions, Denies rash and Denies jaundice Neuro Reports Normal hearing present and Denies Abnormal speech present Endo Denies fatigue Aller/Immun Denies throat swelling and Denies tongue swelling Physical Exam Vital Signs: Last Vital Signs Pulse 76 08/03/24 15:04 BP 109/68 08/03/24 15:04 Pulse Ox 95 08/03/24 15:04 Oxygen Delivery Method Room Air 08/03/24 15:04 BMI result Body Mass Index 32.8 Const General: cooperative, no acute distress, well developed and well groomed Nutritional Appearance: well nourished, obese and overweight Orientation/consciousness: oriented to person, oriented to place and oriented to time Limitations: No language barrier, ambulation with cane, ambulation with walker and wheelchair HEENT Head: Yes normocephalic and Yes atraumatic Eyes General: appearance normal, both eyes and all related structures Pupils: Equal, round and reactive pupils present Neck Neck: Yes normal visual inspection and Yes no lymphadenopathy Thyroid: Thyroid normal Resp Effort & Inspection: normal respiratory effort and able to speak in complete sentences Auscultation: clear to auscultation bilaterally Cardio Rate: regular rate Rhythm: regular rhythm Heart sounds: Normal, physiologic split S2 sound present Peripheral pulses: radial pulses present and posterior tibial pulses present GI Inspection: No distended and No Abdominal panniculus present Palpation (GI): Soft to palpation, nontender, no guarding, not rigid, No hepatosplenomegaly present and Hepatosplenomegaly present Percussion: Yes normal to percussion Auscultation: normal bowel sounds Rectal Exam - Female: deferred Skin General skin exam: no rashes or lesions noted, turgor normal, skin not dry, no jaundice, No spider nevi and no striae Rashes: no rashes Nails: normal Neuro General: oriented to person, oriented to place and oriented to time Cranial nerves: Yes Equal, round and reactive pupils present and Yes Normal h earing present Speech: No Abnormal speech present Extrem General: Yes normal to inspection, No clubbing, No cyanosis and No edema Psych Thought process: Normal thought process present and not confabulating Thought content: Normal thought content present Insight: Good insight present (Psych) Judgement: Good judgement present (Psych) Assessment & Plan Assessment & Plan (1) GERD (gastroesophageal reflux disease): Code(s): K21.9 - Gastro-esophageal reflux disease without esophagitis Category: Medical (2) Chronic idiopathic constipation: Code(s): K59.04 - Chronic idiopathic constipation Category: Medical (3) GUADALUPE (obstructive sleep apnea): Comment: CONFIRMED CASE OF OBSTRUCTIVE SLEEP APNEA, DIAGNOSED IN 2022. INITIALLY SHE USED CPAP REGULARLY BUT THEN, , STAY USED ONLY ONCE IN A WHILE BLAMES IT ON THE MASK SHE DOES NOT LIKE THE FULLFACE MASK, AND WANTS TO TRY A NASAL PILLOWS. Code(s): G47.33 - Obstructive sleep apnea (adult) (pediatric) Category: Medical (4) Tubular adenoma of colon: Comment: 2016 scope= TA repeat in 5 years Code(s): D12.6 - Benign neoplasm of colon, unspecified Category: Medical (5) COPD (chronic obstructive pulmonary disease): Comment: THIS PATIENT IS ALSO A CASE OF CHRONIC OBSTRUCTIVE PULMONARY DISEASE, I CHECKED. AND IT WAS ACTUALLY RELATIVELY NORMAL SHE CONTINUES TO USE HER REGULAR REGIMEN. Code(s): J44.9 - Chronic obstructive pulmonary disease, unspecified Category: Medical (6) Hemorrhoids with complication: Code(s): K64.8 - Other hemorrhoids Category: Medical (7) Pre-op examination: Code(s): Z01.818 - Encounter for other preprocedural examination Category: Medical Plan She has been lost to follow-up since 11/2023 She is now taking the omeprazole and reglan 5mg qid and no a/e and it is controlling her GERD she is not using the simethicone as frequently only as needed and she asked me to hold this medication for now and we will. She is agreeable not having a colonoscopy since she has about 2 or 3 months out from her cardiac catheterization and is doing well. Her cardiac condition has completely stabilized and she is not on any anticoagulation. We will get this scheduled. Her GUADALUPE and her asthma is well controlled. There are no prior problems with anesthesia or sedation. There are no infectious disease problems. Return office visit in 6 months or after the colonoscopy whichever comes 1st. She is having more trouble with roids, wants cream and a re referral to surgery. Orders: Orders Colonoscopy - GI Use Only Today D12.6 - Benign neoplasm of colon, unspecified, G47.33 - Obstructive sleep apnea (adult) (pediatric), J44.9 - Chronic obstructive pulmonary disease, unspecified Referrals General Surgery Referral K64.9 - Unspecified hemorrhoids Medications: New sodium,potassium,mag sulfates 17.5-3.13-1.6 gram (Suprep Bowel Prep Kit) 480 mL orally; FOR COLONOSCOPY PREP 354 mL 0RF Changed From hydrocortisone 1% IN K64.8 - Other hemorrhoids To hydrocortisone 1% 1 appl IN TID 28.4 grams 6RF K64.8 - Other hemorrhoids Refilled metoclopramide HCl (Reglan) 5 mg PO QIDACHS 120 tabs 6RF K30 - Functional dyspepsia pantoprazole 40 mg PO QAM 90 tabs 2RF On Hold simethicone Hold Comment: pt has too much 180 mg PO QID 30 days 120 caps 6RF R14.0 - Abdominal distension (gaseous) Coding Level of Care Code Est Pt Level 4 (79029) Diagnoses GERD (gastroesophageal reflux disease) K21.9 Chronic idiopathic constipation K59.04 GUADALUPE (obstructive sleep apnea) G47.33 Tubular adenoma of colon D12.6 COPD (chronic obstructive pulmonary disease) J44.9 Hemorrhoids with complication K64.8 Pre-op examination Z01.818 Time Spent (min) 34
[2024-08-03 15:04] VITALS: BP 109/68; PULSE 76; O2SAT 95; BMI 32.8
--- OUTSIDE RECORDS SUMMARY | 2024-08-03 17:40 | XMS_ITS | Encounter Summary ---
Author Organization [employer] Address [address] [facility] 7[address] [place] [address] Care Team Providers Care Ems Driver Name Role Phone Jenny Vázquez MD Primary Care Provider [phone] Encounter Details Date Type Department Care Team (Late st Contact Info) Description 10/31/2022 Abstract [facility] MEDICINE [address] [place] [address] Jenny Vázquez MD [address] [place] [address] Social History Tobacco Use Types Packs/Day Years [...] Description 2025 1:00 PM EDT Office Visit [facility] ADULT DENTAL [address] [place] [address] Marialuisa Parsons documented as of this encounter Procedures Procedure Name Priority Date/Time Associated Diagnosis Comments PAP/HPV Routine 10/02/2022 documented in this encounter Results * Pap Smear (10/02/2022) Pap Negative for intraephithelial lesion or malignancy Negative for intraephithelial lesion or malignancy, Other HPV Undetected Result [facility] Unassigned Pcp HEALTH MAINTENANCE Final Result documented in this encounter Visit Diagnoses Not on filedocumented in this encounter Additional Health Concerns Assessment Noted Time PHQ-9 Depression Total Score: 0 10/22/19 23 1:17 PM EDT documented as of this encounter Care Teams Ems Driver Relationship Specialty Start Date End Date Jenny Vázquez MD [address] [place] [address] PCP - General Family Medicine 04/13/18 documented as of this encounter
--- OUTSIDE RECORDS SUMMARY | 2024-08-03 17:41 | XMS_ITS | Encounter Summary ---
Author Organization [employer] Address [address] [facility] 7t [place] [address] Care Team Providers Care Cooker Mechanic Name Role Phone Jenny Vázquez MD Primary Care Provider [phone] Encounter Details Date Type Department Care Team (Late st Contact Info) Description 03/09/2023 Abstract [facility] ADULT DENTAL [address] [place] [address] Nathanael Crespo DDS [address] [place] [address] Social History Tobacco Use Types Packs/Day Years [...] Description 2025 1:00 PM EDT Office Visit [facility] ADULT DENTAL [address] [place] [address] Marialuisa Parsons documented as of this encounter Visit Diagnoses Not on filedocumented in this encounter Additional Health Concerns Assessment Noted Time PHQ-9 Depression Total Score: 0 10/22/19 23 1:17 PM EDT documented as of this encounter Care Teams Cooker Mechanic Relationship Specialty Start Date End Date Jenny Vázquez MD [address] [place] [address] PCP - General Family Medicine 04/13/18 documented as of this encounter
--- OUTSIDE RECORDS SUMMARY | 2024-08-03 17:41 | XMS_ITS | Encounter Summary ---
Author Organization [employer] Address [address] [facility] [address] [place] [address] Care Team Providers Care Anthropometrist Name Role Phone Jenny Vázquez MD Primary Care Provider [phone] Reason for Visit * Reason Onset Date Comments Nurse Triage 03/09/2023 Encounter Details Date Type Department Care Team (Late st Contact Info) Description 03/09/2023 Telephone [facility] MEDICINE [address] [place] [address] Jenny Vázquez MD [address] [place] [address] Nurse Triage Social History Tobacco Use Types [...] Triage call Pt reports was seen in [facility] 03/06/23 and tested positive for Covid. Pt [...] needed. Follow up ED visit apt with CAPTAIN/CHECK AIRMAN Zeinab 03/19/23 @ 115pm. Insurance is verified asactive prior to booking. Protocol Used: COVID-19 - Diagnosed or Suspected (Adult) Protocol-Based Disposition: Home Care Positive Triage Question: * COVID-19 diagnosed by doctor (or CAPTAIN/CHECK AIRMAN/PA) and mild symptoms (e.g., cough, fever, others) and no complications or SOB * All higher-acuity triage questions were negative Care Advice Discussed: * Reassurance and Education - Diagnosed With COVID-19 by Doctor (or CAPTAIN/CHECK AIRMAN/PA) and Mild Symptoms * General Care Advice [...] (high-pitched whistling sound), pt was seen at [facility] on 03/06 for asthma. Pt was tested positive for COVID and is still symptomatic. The caller accepted this outcome Please contact pt at [phone] documented in this encounter Plan of Treatment Upcoming Encounters Date Type Department Care Team (Late st Contact Info) Description 2025 1:00 PM EDT Office Visit [facility] ADULT DENTAL [address] [place] [address] Marialuisa Parsons documented as of this encounter Visit Diagnoses Not on filedocumented in this encounter Additional Health Concerns Assessment Noted Time PHQ-9 Depression Total Score: 0 10/22/19 23 1:17 PM EDT documented as of this encounter Care Teams Anthropometrist Relationship Specialty Start Date End Date Jenny Vázquez MD [address] [place] [address] PCP - General Family Medicine 04/13/18 documented as of this encounter
--- OUTSIDE RECORDS SUMMARY | 2024-08-03 17:41 | XMS_ITS | Encounter Summary ---
Author Organization [employer] Address [address] [facility] 7t [place] [address] Care Team Providers Care Workforce Development Specialist Name Role Phone Jenny Vázquez MD Primary Care Provider [phone] Reason for Visit * Reason Onset Date Comments Med Refill 06/08/2023 Encounter Details Date Type Department Care Team (Late st Contact Info) Description 06/08/2023 Refill [facility] MEDICINE [address] [place] [address] Loyda Clark MD [address] [place] [address] Fibromyalgia Social History Tobacco Use Types Packs/Day [...] Description 2025 1:00 PM EDT Office Visit [facility] ADULT DENTAL [address] [place] [address] Marialuisa Parsons documented as of this encounter Visit Diagnoses Diagnosis Fibromyalgia Unspecified myalgia and myositis documented in this encounter Additional Health Concerns Assessment Noted Time PHQ-9 Depression Total Score: 0 10/22/19 23 1:17 PM EDT documented as of this encounter Care Teams Workforce Development Specialist Relationship Specialty Start Date End Date Jenny Vázquez MD [address] [place] [address] PCP - General Family Medicine 04/13/18 documented as of this encounter
--- OUTSIDE RECORDS SUMMARY | 2024-08-03 17:41 | XMS_ITS | Encounter Summary ---
Author Organization [employer] Address [address] [facility] [address] [place] [address] Care Team Providers Care Booking Police Officer Name Role Phone Jenny Vázquez MD Primary Care Provider [phone] Encounter Details Date Type Department Care Team (Late st Contact Info) Description 04/29/2022 Orders Only [facility] [address] [place] [address] Lorraine Arroyo LPN Social History Tobacco Use [...] 2025 1:00 PM EDT Office Visit [facility] ADULT DENTAL [address] [place] [address] Marialuisa Parsons documented as of this encounter Procedures Procedure Name Priority Date/Time Associated Diagnosis Comments LIPID PANEL, STANDARD Routine 11/05/2022 8:43 AM EDT PAP SMEAR Routine 10/02/2022 3:36 PM EDT documented in this encounter Results * Lipid Panel, Standard (11/05/2022 8:43 AM EDT) Triglycerides 76 mg/dL [facility] Comment:Desirable Triglyceri de: less than 150 mg/dLBorderline High Triglyceride 150-199 mg/dLHigh Triglyceride: 200-499 mg/dLVery High Triglyceride: greater than or equal to 5OO mg/dL Cholesterol 118 mg/dL [facility] Comment:Desirable Cholestero l: less than 200 mg/dLBorderline High Cholesterol: 200-239 mg/dLHigh Cholesterol: greater than 239 mg/dL LDL Cholesterol Calculated 56 mg/dl [facility] Comment:Desirable LDL: less than 100 mg/dLNear Optimal/Above Optimal LDL: 110- 129 mg/dLBorderline High LDL: 130-159 mg/dLHigh LDL: 160-189 mg/dLVery High LDL: greater than or equal to 190 mg/dL HDL Cholesterol 47 mg/dL [facility] Comment:Desirable HDL: great er than 40 mg/dL Note: This HDL assay may give artificially low results in patients with liver disease. 11/05/2022 8:43 AM EDT 11/05/2022 11:40 AM EDT us Jenny Vázquez MD LAB BLOOD ORDERABLES Final Resul t [facility] [address] [place] [address] [phone] * Pap Smear (10/02/2022 3:36 PM EDT) 10/02/2022 3:36 PM EDT 10/06/2022 12:00 PM EDT Narrative [facility] - 10/27/2022 10:49 AM EDT ----- ------- Name: Araseli Leary ?Age/Sex: 67/F ? : 1955 Unit#: [id number] ?? Attend Dr: Argentina Mak CNM ?Re10/02/22 ?Status: DEP REF ? Location: HO.LNP ?Disch: ? ----- ------- SPEC : [id number] ? RECD: 10/06/22-1199 ? STATUS: ??SOUT ? REQ NUM: [id number] ? TODD: 10/02/22-1536 ? SUBM DR: Argentina [...] 67, 69) ? HPV testing performed by [facility] [place], [place]. ??See reference laboratory ?? portion of the EMR for entire report. ?Clinical Information LMP: Menopausal Previous PAP test: 2018, ASCUS ? Material Received ?? ThinPrep-Cervical Copies To: ?? Argentina Mak CNM ?? [address] [facility] ?? [place] [address] ?? [phone] ?? Jenny Vázquez MD ?? [address] ?? [place] [address] ?? ----- ------- Signed (signature on file) Berlin Rodriguez MD 10/27/22 9179 ? ----- ------- ? END OF REPORT ? [facility] External Provider LAB CYT OLOGY ORDERABLES Final Result Performing Organization Address City/State/[facility] Co de Phone Number [facility] [address] [place] [address] [phone] documented in this encounter Visit Diagnoses Not on filedocumented in this encounter Care Teams Booking Police Officer Relationship Specialty Start Date End Date Jenny Vázquez MD [address] [place] [id number] PCP - General Family Medicine 04/13/18 documented as of this encounter
--- OUTSIDE RECORDS SUMMARY | 2024-08-03 17:41 | XMS_ITS | Encounter Summary ---
Author Organization [employer] Address [address] [facility] 7[address] [place] [address] Care Team Providers Care Reticle Printer Name Role Phone Jenny Vázquez MD Primary Care Provider [phone] Encounter Details Date Type Department Care Team (Late st Contact Info) Description 12/30/2023 Orders Only [facility] MEDICINE [address] [place] [address] Jenny Vázquez MD [address] [place] [address] Primary hypertension (Primary Dx); Dyslipidemia; Fibromyalgia Social [...] Description 2025 1:00 PM EDT Office Visit [facility] ADULT DENTAL [address] [place] [address] Marialuisa Parsons documented as of this encounter Visit Diagnoses Diagnosis Primary hypertension- Primary Unspecified essential hypertension Dyslipidemia Other and unspecified hyperlipidemia Fibromyalgia Unspecified myalgia and myositis documented in this encounter Additional Health Concerns Assessment Noted Time PHQ-9 Depression Total Score: 0 10/22/19 23 1:17 PM EDT documented as of this encounter Care Teams Reticle Printer Relationship Specialty Start Date End Date Jenny Vázquez MD [address] [place] [address] PCP - General Family Medicine 04/13/18 documented as of this encounter
--- OUTSIDE RECORDS SUMMARY | 2024-08-03 17:41 | XMS_ITS | Encounter Summary ---
Author Organization [employer] Address [address] [facility] 7t [place] [address] Care Team Providers Care International Controller Name Role Phone Jenny Vázquez MD Primary Care Provider [phone] Encounter Details Date Type Department Care Team (Late st Contact Info) Description 03/10/2023 Abstract [facility] ADULT DENTAL [address] [place] [address] Nathanael Crespo DDS [address] [place] [address] Social History Tobacco Use Types Packs/Day Years [...] Description 2025 1:00 PM EDT Office Visit [facility] ADULT DENTAL [address] [place] [address] Marialuisa Parsons documented as of this encounter Visit Diagnoses Not on filedocumented in this encounter Additional Health Concerns Assessment Noted Time PHQ-9 Depression Total Score: 0 10/22/19 23 1:17 PM EDT documented as of this encounter Care Teams International Controller Relationship Specialty Start Date End Date Jenny Vázquez MD [address] [place] [address] PCP - General Family Medicine 04/13/18 documented as of this encounter
--- OUTSIDE RECORDS SUMMARY | 2024-08-03 17:41 | XMS_ITS | Encounter Summary ---
Author Organization [employer] Address [address] [facility] [address] [place] [address] Care Team Providers Care Vocational Examiner Name Role Phone Jenny Vázquez MD Primary Care Provider [phone] Reason for Visit * Reason Comments Med Refill Encounter Details Date Type Department Care Team (Late st Contact Info) Description 04/17/2023 Refill [facility] [address] [place], [place] [phone] Jenny Vázquez MD [address] [place] [address] Fibromyalgia Social History Tobacco Use Types Packs/Day [...] Description 2025 1:00 PM EDT Office Visit [facility] ADULT DENTAL [address] [place] [address] Marialuisa Parsons documented as of this encounter Visit Diagnoses Diagnosis Fibromyalgia Unspecified myalgia and myositis documented in this encounter Additional Health Concerns Assessment Noted Time PHQ-9 Depression Total Score: 0 10/22/19 23 1:17 PM EDT documented as of this encounter Care Teams Vocational Examiner Relationship Specialty Start Date End Date Jenny Vázquez MD [address] [place] [address] PCP - General Family Medicine 04/13/18 documented as of this encounter
--- OUTSIDE RECORDS SUMMARY | 2024-08-03 17:41 | XMS_ITS | Clinical Summary ---
Author Organization [employer] Address [address] [facility] 7[address] [place] [address] Care Team Providers Care Technical Agronomist Name Role Phone Jenny Vázquez MD Primary Care Provider [phone] Allergies Active Allergy Reactions Criticality Noted Date Comments Martir Inhibitors 04/21/2022 Ascorbate 02/05/2024 Latex 02/05/2024 Lisinopril Hives 02/18/2023 New Skin 02/05/2024 Peanut Oil 04/21/2022 Peanut-Containing Drug Products 01/12 Pineapple 02/05/2024 [place] Extract Other 02/08/2024 Zoster Vaccine Live 12/12/2016 [...] baking, cleaning her home and listening to restorationism music. Araseli reports taking medication prescribed by her PCP and having improvements from them. clinician will provide additional support if needed during next medical appointment. Dental abscess 02/18/2023 Ischemic heart disease 08/05/2022 Assessment & Plan (06/06/2024 3:21 PM EST): -Cuff Setter Overlock: Dr. Arsenio Bernard and Janna Cruz NP, [...] discontinued when she was last seen by computer programmer chief in Apr 2024. -Continue Metoprolol, ASA and Atorvastatin -Continue isosorbide -Cont working on lifestyle modifications. Assessment & Plan (02/15/2024 1:39 PM EST): [facility] [place] last seen on [place]/08/23 - NSTEMI [...] Assessment & Plan (01/28/2023 8:56 PM EDT): -Cuff Setter Overlock[facility] [place] [place] [place] last seen on 01/08/23 - NSTEMI [...] Assessment & Plan (10/28/2022 7:06 AM EDT): -Cuff Setter Overlock: Dr. Arsenio Bernard, last seen on 08/05/22; [...] Assessment & Plan (08/15/2022 6:38 AM EDT): -Cuff Setter Overlock: Dr. Arsenio Bernard, appt today - NSTEMI [...] on 10/20/22. Being scheduled for Pre-Op with Cuff Setter Overlock. Pt needs Cardiac Clearance Before Hemorrhoidectomy. - [...] she would like me to call her computer programmer chief and try to get a sooner [...] (02/10/2024 8:13 AM EDT): - evaluated by occupational safety and health manager - wears hearing aids Assessment & Plan (08/15/2022 6:43 AM EDT): - evaluated by occupational safety and health manager - wears hearing aids Type 2 diabetes [...] May 2024, plantar fasciitis, ingrown toenail, sees guest service representative. -Last microalbumin test: 11/05/22 UACR 4.9; -Last [...] exam: 08/05/22, plantar fasciitis, ingrown toenail, sees guest service representative. -Last microalbumin test: 11/05/22 UACR 4.9; -Last [...] exam: 08/05/22, plantar fasciitis, ingrown toenail, sees guest service representative. -Last microalbumin test: 11/05/22 UACR 4.9; -Last [...] exam: 08/05/22, plantar fasciitis, ingrown toenail, sees guest service representative. -Last microalbumin test: 10/25/18 UACR no microalbuminuria [...] exam: 08/05/22, plantar fasciitis, ingrown toenail, sees guest service representative. -Last microalbumin test: 10/25/18 UACR no microalbuminuria [...] Plan (08/05/2022 9:28 AM EDT): Seen by computer programmer chief, Dr. Cesar, on 01/09/22 for CAD and PVC f/u: -TTE was ordered by Cuff Setter Overlock -most recent Holter monitor in Dec 2019 PVC 3%. -09/20/21 Echo LVEF 45-50%, p/s Stent -Continue metoprolol succinate 50 mg TWO tablets daily -Continue BB -Previously flecainide 100 mg BID. d/c d/t hospitalization Fibromyalgia 07/20/2014 Assessment & Plan (06/06/2024 3:28 PM EST): Followed by Information Systems Security Officer -Continue Mustapha, use judiciously -Continue staying active Assessment & Plan (02/10/2024 8:12 AM EDT): Followed by Information Systems Security Officer -Continue Lyrica, use judiciously -Continue staying active Assessment & Plan (08/05/2022 9:27 AM EDT): Followed by Information Systems Security Officer -Continue Lyrica, use judiciously -Continue staying active Allergic rhinitis 03/24/2013 Assessment & Plan (02/15/2024 1:48 PM EST): - continue loratadine and montelukast - following with seo marketing specialist Assessment & Plan (10/21/2022 2:19 PM EDT): - continue loratadine and montelukast - will check status of referral Assessment & Plan (08/15/2022 6:43 AM EDT): - continue loratadine and montelukast - refer to a new seo marketing specialist Depressive disorder 03/24/2013 Hypertension 03/24/2013 Assessment [...] & Plan (06/06/2024 3:27 PM EST): - timber buyer changed mask for nasal pillow per patient's request in May 2023 - recommended CPAP use Assessment & Plan (02/14/2024 5:29 PM EST): - timber buyer changed mask for nasal pillow per patient's request in May 2023 - recommended CPAP use Assessment & Plan (01/28/2023 8:51 PM EDT): - continue CPAP Asthma 12/10/2012 Assessment & Plan (06/06/2024 6:25 AM EST): - Previously followed by Allergy / food safety specialist : Dr. Ahn - Seen by new timber buyer at [facility] [place] in May 2023 [...] EST): - Previously followed by Allergy / food safety specialist : Dr. Ahn - Seen by new timber buyer at [facility] [place] in May 2023 - No history of intubation, Hx pneumonia and influenza in Apr 2018 - Severe exacerbation 1 or 2 times / year - Continue Symbicort and Singulair as maintenance. - Continue albuterol HFA / neb prn as rescue. Assessment & Plan (01/28/2023 8:51 PM EDT): - Previously followed by Allergy / food safety specialist : Dr. Ahn - Seen by new timber buyer at [facility] [place] in August 2022 - No history of intubation, Hx pneumonia and influenza in Apr 2018 - Severe exacerbation 1 or 2 times / year - Continue Symbicort and Singulair as maintenance. - Continue albuterol HFA / neb prn as rescue. Assessment & Plan (10/28/2022 6:57 AM EDT): - Previously followed by Allergy / food safety specialist : Dr. Ahn - Seen by new timber buyer at [facility] [place] in August 2022 - No history of intubation, Hx pneumonia and influenza in Apr 2018 - Severe exacerbation 1 or 2 times / year - Continue Symbicort and Singulair as maintenance. - Continue albuterol HFA / neb prn as rescue. Assessment & Plan (08/15/2022 6:29 AM EDT): - Allergy / food safety specialist : Dr. Ahn, needs a new allergy medical sales specialist - No history of intubation, Hx pneumonia and influenza in Apr 2018 - Severe exacerbation 1 or 2 times / year - Continue Symbicort and Singulair as maintenance. - Continue albuterol HFA / neb prn as rescue. Encounters Date Type Department Care Team Description 06/16/2024 Telephone [facility] [address] [place] [phone] Jenny Vázquez MD 06/06/2024 3:15 PM EST Office Visit [facility] [address] [place] [address] Jenny Vázquez MD Primary hypertension (Primary Dx); [...] 34.9 in adult 06/06/2024 Travel 06/01/2024 Telephone [facility] [address] [place], [place] [phone] Jenny Vázquez MD Chart Prep 05/24/2024 Telephone [facility] [address] [place], [place] [phone] Jenny Vázquez MD pa request from Last [...] Description 2025 1:00 PM EDT Office Visit [facility] [address] [place] [address] Marialuisa Parsons Health Maintenance Due Date Last [...] X-Ray: Bitewings 02/20/2024 02/19/20 23, 08/20/2020, 10/19/2015 Diabetes: Hemoglobin A1C 12/04/2024 025, 02/08/2024, 11/05/2022, [...] complication, without long-term current use of insulin ([facility]) BI MAMMOGRAM SCREENING TOMOSYNTHESIS BILATERAL Routine 02/12/2024 2:03 PM EDT DIABETES EYE EXAM Routine 03/03/2023 BITEWINGS - [...] Free T4 2.20 0.32 - 4.0 uIU/mL [facility] Blood 06/07/2024 10:4 6 AM EST 06/07/2024 11:30 AM EST us Jenny Vázquez MD LAB BLOOD ORDERABLES Final Resul t [facility] [address] [place] [phone] * Lipid Panel with Reflex to Direct LDL (06/07/2024 10:46 AM EST) Triglycerides 106 <150 mg/dL [facility] Comment:Desirable Triglyceri de: less than 150 mg/dLBorderline High Triglyceride 150-199 mg/dLHigh Triglyceride: 200-499 mg/dLVery High Triglyceride: greater than or equal to 5OO mg/dL Cholesterol 121 <200 mg/dL [facility] Comment:Desirable Cholestero l: less than 200 mg/dLBorderline High Cholesterol: 200-239 mg/dLHigh Cholesterol: greater than 239 mg/dL LDL Cholesterol Calculated 56 <100 mg/dL [facility] Comment:Desirable LDL: less than 100 mg/dLNear Optimal/Above Optimal LDL: 110- 129 mg/dLBorderline High LDL: 130-159 mg/dLHigh LDL: 160-189 mg/dLVery High LDL: greater than or equal to 190 mg/dL HDL Cholesterol 44 >40 mg/dL [facility] Comment:Desirable HDL: great er than 40 mg/dL Note: This HDL assay may give artificially low results in patients with liver disease. Blood 06/07/2024 10:4 6 AM EST 06/07/2024 11:30 AM EST Jenny Vázquez MD LAB BLOOD ORDERABLES Final Resul t Performing Organization Address [facility] de Phone Number [facility] [address] [place] [address] [phone] * Albumin, Random Urine W/Creatinine (06/07/2024 10:46 AM EST) Creatinine, Urine 93.36 mg/dL [facility] Microalbumin Urine <5.0 mg/L [facility] Microalbum Creatinine Ratio Ur TNP <30 ug/mg cr [facility] Comment:Unable to calculate albumin/creatinine ratio due to lowmicroalbumin or creatinine result. Urine 06/07/2024 10:4 6 AM EST 06/07/2024 11:32 AM EST us Jenny Vázquez MD LAB URINE ORDERABLES Final Resul t Performing Organization Address [facility] de Phone Number [facility] [address] [place] [address] [phone] * (ABNORMAL) Hepatic Function Panel (06/07/2024 10:46 AM EST) Bilirubin, Total 0.5 0.0 - 1.0 mg/dL [facility] Bilirubin, Direct 0.2 0.0 - 0.5 mg/dL [facility] Aspartate Amino Transferase 25 5 - 31 U/L [facility] Comment:Slight Hemolysis.Int erpret result with caution. Alanine Aminotransferase 21 0 - 31 U/L [facility] Total Protein 6.9 6.5 - 8.0 g/dL [facility] Albumin Level 3.8 3.5 - 5.0 g/dL [facility] Alkaline Phosphatase 121(H) 39 - 117 U/L [facility] Blood Venous blood specimen / Unknown 06/07/2024 10:46 AM EST 06/07/2024 11:30 AM EST Jenny Vázquez MD LAB BLOOD ORDERABLES Final Resul t [facility] [address] [place] [phone] * (ABNORMAL) POCT glycosylated hemoglobin (Hgb [...] EDT Narrative 02/22/2024 7:44 PM EST ? [facility] ? [address] ?[place] [address] ? Mammography Report ? Signed ? Patient: Gibran,Araseli ?MR#: [id number] ?? [id number] ? : 1955 ?Acct:[id number] ? Age/Sex: 69 / F ?ADM Date: 02/12/24 ? Loc: HO.MAMMO ? Attending Dr: Jenny Vázquez MD ? Ordering Physician: Jenny Vázquez MD ?Results: 1Negative ? Date of Service: 02/12/24 ?Follow Up: 1 Year From Orig ?? inal Mammogram ? Procedure(s): MM tomosynthesis screening BI ?? Accession Number(s): [id number] ? cc: Jenny Vázquez MD ? EXAMINATION: [...] DD/ 1403 ? TD/TT: 02/12/24 1403 ? Track Repairer: ? Procedure Note Donalexeyter, Image - 02/22/2024 [place] [facility] [address] [place] [address] Mammography Report Signed Patient: Jose M Leary#: [id number] : 6Acct:[id number] Age/Sex: 69 / FADM Date: 02/12/24 Loc: [facility] Attending Dr: Jenny Vázquez MD Ordering Physician: Jenny Vázquez MDResults: 1Negative Date of Service: 02/12/24Follow Up: 1 Year From Orig inal Mammogram Procedure(s): MM tomosynthesis screening BI Accession Number(s): [id number] cc: Jenny Vázquez MD EXAMINATION: MM SCREENING [...] in OV> 02/22/241940 DD/ 02 TD/TT: 02/12/241402 Track Repairer: Jenny Vázquez MD IMG BI PROCEDURES Edited Result - Final * Diabetes Eye Exam (03/03/2023) Eye Exam Normal Normal Historical Provider HEALTH MAINTENANCE Final Result * Colonoscopy (12/09/2016) Colonoscopy Normal Normal 12/09/2016 Kerri Alejo HEALTH MAINTENANCE Final Result from Last 3 Months or Most Recently Relevant to Health Maintenance Insurance [facility] FULL [employer]ET[employer] MEDICARE REPLACEMENT DENTAL - HSN FULL (MEDICAID) [address] [place] [address] [address] [place] [address] Care Teams Technical Agronomist Relationship Specialty Start Date End Date Jenny Vázquez MD [address] [place] [address], [place] [address] PCP - General Family Medicine 04/13/18
== END 2024-08-03 15:27 | disposition home or self-care (01) ==
LOC: HO.HGI 14:50
PROVIDERS: PCP Family Medicine; Visit Provider Nurse Practitioner
DX: K21.9 Gastro-esophageal reflux disease without esophagitis (principal); K59.04 Chronic idiopathic constipation; Z12.11 Encounter for screening for malignant neoplasm of colon; Z86.0101 Personal history of adenomatous and serrated colon polyps
CPT/HCPCS: 99214

== ENCOUNTER → 2024-08-03 14:50 | Outpatient (BNVA) | payer MEDICARE, OTHER, SELFPAY | PROVIDERS: PCP Family Medicine; Visit Provider Nurse Practitioner | DX: Z01.818 Encounter for other preprocedural examination (principal); K59.04 Chronic idiopathic constipation; K21.9 Gastro-esophageal reflux disease without esophagitis; K64.8 Other hemorrhoids; G47.33 Obstructive sleep apnea (adult) (pediatric); D12.6 Benign neoplasm of colon, unspecified; J44.9 Chronic obstructive pulmonary disease, unspecified | CPT/HCPCS: 99212 ==

== ENCOUNTER 2024-09-21 13:54 | Outpatient (AMB) | payer MEDICARE, SELFPAY ==
--- NOTE | 2024-09-21 14:03 | A.OFFVIS_ITS ---
Vital Signs 09/21/24 14:12 Height 5 ft 3 in Weight 183 lb BMI 32.4 BP 95/62 Blood Pressure Location Rt brachial Position Sitting Pulse 77 Intake Visit Reasons: Hemorrhoids Intake Note: Patient referred by Suri Issa PA-C for external hemorrhoids. Established patient last visit 10-20-2022. Patient c/o: bleeding with BM, constipation. Taking natural pills/ Natural Constipent. Document Reviewer Required: No Accompanied by: daughter Amie Allergies peanut Allergy (Severe, Verified 09/21/24 14:10) angioedema lisinopril [LISINOPRIL] Allergy (Intermediate, Verified 09/21/24 14:10) RASH, cough zoster vaccine live [SHINGLES VACCINE] Allergy (Intermediate, Verified 09/21/24 14:10) LOCALIZED REDNESS, SWELLING, FEVER,COUGH latex [LATEX] Allergy (Unknown, Verified 09/21/24 14:10) RASH pineapple [PINEAPPLE] Allergy (Unknown, Verified 09/21/24 14:10) RASH strawberry [STRAWBERRY] Allergy (Unknown, Verified 09/21/24 14:10) RASH adhesive Allergy (Verified 09/21/24 14:10) Blister Medication List - Last Reconciled 09/21/24 by Karthik De Anda MD albuterol sulfate 90 mcg/actuation (ProAir HFA) 2 puffs PO Q4H aspirin 81 mg PO DAILY atorvastatin 80 mg PO BEDTIME benzonatate 200 mg PO TID PRN 5 days budesonide-formoterol 160-4.5 mcg/actuation (Symbicort) 2 puffs inhalation BID fluticasone propionate 50 mcg/actuation sprays intranasal hydrocortisone 1% 1 appl KS TID isosorbide mononitrate ER 60 mg PO DAILY lidocaine 5% 1 appl topical PRN loratadine 10 mg PO BEDTIME metoclopramide HCl (Reglan) 5 mg PO QIDACHS metoprolol succinate ER 75 mg (1.5 x 50 mg) PO QAM nitroglycerin 0.4 mg sublingual Q5M PRN pantoprazole 40 mg PO QAM peg 3350-electrolytes 236-22.74-6.74 -5.86 gram (Golytely) 240 mL PO Q10M 1 day pregabalin (Lyrica) 50 mg PO BID semaglutide (Ozempic) mg subcut simethicone 180 mg PO QID 30 days sodium,potassium,mag sulfates 17.5-3.13-1.6 gram (Suprep Bowel Prep Kit) 480 mL orally; FOR COLONOSCOPY PREP tiotropium bromide 1.25 mcg/actuation (Spiriva Respimat) 2 puffs inhalation DAILY HPI HPI Hemorrhoids: Details: [age] year old female referred for hemorrhoid issues. She says she says hemorrhoids for most of her life. These never really bothered her but for the past years, she feels that these hemorrhoids have been bothering her more with swelling, pain and discomfort. She denies any significant bleeding She also admits to chronic constipation. [facility] Medical History COVID-19 Palpitation Precordial chest pain Hemorrhoids Abdominal bloating Abdominal cramping Back pain Encounter for monitoring anti-arrhythmic therapy Fracture of proximal phalanx of right ring finger Syncope and collapse Acute non-ST elevation myocardial infarction (NSTEMI) Fracture of lesser tuberosity of right humerus Fracture of proximal end of right humerus Family history of ovarian cancer Early satiety COPD (chronic obstructive pulmonary disease) Cataract GUADALUPE (obstructive sleep apnea) Obesity (BMI 30-39.9) Hemorrhoids with complication GUADALUPE (obstructive sleep apnea) Hemorrhoids with complication NSVT (nonsustained ventricular tachycardia) PVC (premature ventricular contraction) Surgical History History of cardiac cath S/P ablation of ventricular arrhythmia S/P cardiac cath S/P cardiac catheterization History of coronary artery stent placement History of esophagogastroduodenoscopy (EGD) Hx of colonoscopy History of shoulder surgery (~04/29/18) History of lumbar laminectomy Family History Father Cardiovascular disease Mother Osteoarthritis Family/Other Ovarian cancer, Onset Age: 30 Social History Household Members: Spouse Alcohol intake: never Patient Tobacco Use Status: Never used Tobacco service: No Current occupational status: unemployed Current occupation: rt handed Review of Systems Const Denies chills and Denies fever(s) Card Denies chest pain, Denies dyspnea and Denies dyspnea on exertion Resp Denies cough, Denies dyspnea and Denies dyspnea on exertion GI Denies hematochezia, Denies change in bowel habits and Reports constipation Denies hematuria Musc Denies back pain and Denies limited range of motion Neuro Denies focal weakness and Denies convulsions Psych Denies depression and Denies mood swings Physical Exam Vital Signs: Last Vital Signs Pulse 77 09/21/24 14:12 BP 95/62 09/21/24 14:12 BMI result Body Mass Index 32.4 Const General: comfortable and no acute distress Orientation/consciousness: patient oriented x3 Neck Neck: Yes no lymphadenopathy Resp Auscultation: clear to auscultation bilaterally Cardio Rhythm: regular rhythm GI Other: Rectal exam - External hemorrhoids on both the left and right side Palpation (GI): Soft to palpation, nontender and no guarding Neuro General: patient oriented x3 Office Procedures Anoscopy She was in bhavna-knife position. The anoscope was gently inserted. A full examination of the anal canal was done. She did have mixed internal and external hemorrhoids on both the left and right side. There was some very prominent hemorrhoidal column on the left posterior. There were no other lesions. There were no fissure or ulceration. There was no induration on digital exam. There was no bleeding. [id number] Assessment & Plan Assessment & Plan (1) Hemorrhoids with complication: Code(s): K64.8 - Other hemorrhoids Category: Medical Plan: She describes having chronic problems with pain, swelling and discomfort with her hemorrhoids. This has been worsening over the years. She says that she wants these removed. A I had a long discussion with her about the technique of exam under anesthesia hemorrhoidectomy. I discussed with the risks including but not limited to bleeding, infections postop pain, as well as the benefits and alternatives. I reviewed with her what to expect postoperatively She says she wants to proceed. Her daughter was with her during the discussion. Coding Level of Care Code New Pt Level 3 (33690) Diagnoses Hemorrhoids with complication K64.8 CPT Codes Details - CPT: 16395-Wywwahku ([id number])
[2024-09-21 14:12] VITALS: BP 95/62; PULSE 77; BMI 32.4
--- OUTSIDE RECORDS SUMMARY | 2024-09-21 15:51 | XMS_ITS | Encounter Summary ---
Author Organization [employer] Address [address] [facility] [address] [place] [address] Care Team Providers Care Hair Tinter Name Role Phone Jenny Vázquez MD Primary Care Provider [phone] Encounter Details Date Type Department Care Team (Late st Contact Info) Description 10/31/2022 Abstract [facility] [address] [place] [address] Jenny Vázquez MD [address] [place] [address] Social History Tobacco Use Types Packs/Day Years [...] Care Team (Late st Contact Info) Description 10/11/2024 2:15 PM EDT Office Visit [facility] [address] [place] [address] Jenny Vázquez MD [address] [place] [address] 2025 1:00 PM EDT Office Visit [facility] [address] [place], [place] [phone] Marialuisa Parsons documented as of this encounter Procedures Procedure Name Priority Date/Time Associated Diagnosis Comments PAP/HPV Routine 10/02/2022 documented in this encounter Results * Pap Smear (10/02/2022) Pap Negative for intraephithelial lesion or malignancy Negative for intraephithelial lesion or malignancy, Other HPV Undetected Result [facility] Pcp HEALTH MAINTENANCE Final Result documented in this encounter Visit Diagnoses Not on filedocumented in this encounter Additional Health Concerns Assessment Noted Time PHQ-9 Depression Total Score: 0 10/22/19 23 1:17 PM EDT documented as of this encounter Care Teams Hair Tinter Relationship Specialty Start Date End Date Jenny Vázquez MD [address] [place] [phone] PCP - General Family Medicine 04/13/18 documented as of this encounter
== END 2024-09-21 14:35 | disposition home or self-care (01) ==
LOC: HO.HGS 13:54
PROVIDERS: PCP Family Medicine; Referring Provider Nurse Practitioner; Visit Provider Surgery
DX: K64.8 Other hemorrhoids (principal)
CPT/HCPCS: 46600; 99213

== ENCOUNTER → 2024-09-21 13:54 | Outpatient (BNVA) | payer MEDICARE, SELFPAY | PROVIDERS: PCP Family Medicine; Referring Provider Nurse Practitioner; Visit Provider Surgery | DX: K64.8 Other hemorrhoids (principal); K59.09 Other constipation | CPT/HCPCS: 46600; 99212 ==

== ENCOUNTER 2024-09-26 11:15 | Emergency (ER) | payer MEDICARE, SELFPAY ==
[2024-09-26] VITALS (8 sets, daily range): BP systolic 92–141; BP diastolic 55–76; PULSE 67–78; RESP 10–18; TEMP 36.5–36.8; O2SAT 95–97; BMI 32.7
--- NOTE | ~2024-09-26 | XR_ITS ---
EXAMINATION: XR CHEST CLINICAL INFORMATION: chest pain COMPARISON: March 06, 2023. TECHNIQUE: 2 views of the chest were obtained. FINDINGS: No consolidation, pleural effusion or pneumothorax Cardiomediastinal silhouette size is normal. Multilevel thoracic spondylosis.. XR/XR chest 2V IMPRESSION: No acute airspace disease. Electronically signed by: Erik Black MD 09/26/2024 12:57 PM EDT
--- NOTE | 2024-09-26 11:17 | ECG_ITS ---
Test Reason : chest pain Blood Pressure : */* mmHG Vent. Rate : 81 BPM Atrial Rate : 81 BPM P-R Int : 212 ms QRS Dur : 134 ms QT Int : 420 ms P-R-T Axes : 39 27 88 degrees QTcB Int : 487 ms Sinus rhythm with 1st degree A-V block with occasional Premature ventricular complexes Left bundle branch block Abnormal ECG When compared with ECG of 19-Sep-2021 01:39, Left bundle branch block is now Present Referred By: Generic ED Physician Electronically Signed By: Xavier Fuentes
--- NOTE | 2024-09-26 11:33 | ED.CHESTPAIN ---
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 Aldrich HPI narrative: this is a 69-year-old female with known history of coronary artery disease diagnosed in 2022 after patient sustained non STEMI had stent placed in the RCA with known LAD/circumflex artery disease that has been treated medically. History of DM, hypertension, HLD, GUADALUPE, PVC. Patient's symptoms started yesterday with mid chest pressure radiating to the left arm on and off since yesterday, pain was initially associated with left nostril bleed, no other symptoms including shortness of breath, no fever, no chills, no recent travel, no lower extremity swelling or tenderness. Patient also noticed a bruise on the left hand palm that is clearing by today, patient declined any trauma or injury or fall. No weakness, no numbness, no SOB , during the exam patient has no chest pain. Related Data Home Medications ?Medication ?Instructions ?Recorded ?Confirmed loratadine 10 mg tablet 10 mg PO BEDTIME 02/09/20 09/21/24 pregabalin 50 mg capsule (Lyrica) 50 mg PO BID 02/09/20 09/21/24 albuterol sulfate 90 mcg/actuation 2 puff PO Q4H 09/26/21 09/21/24 aerosol inhaler (ProAir HFA) lidocaine 5 % topical ointment 1 appl topical PRN 10/20/22 09/21/24 fluticasone propionate 50 spray intranasal 11/03/22 09/21/24 mcg/actuation nasal spray,suspension tiotropium bromide 1.25 2 puff inhalation DAILY 11/19/22 09/21/24 mcg/actuation mist for inhalation (Spiriva Respimat) budesonide-formoterol HFA 160 2 puff inhalation BID 05/20/23 09/21/24 mcg-4.5 mcg/actuation aerosol inhaler (Symbicort) semaglutide 0.25 mg or 0.5 mg (2 mg subcut 04/18/24 09/21/24 mg/3 mL) subcutaneous pen injector (Ozempic) Previous Rx's ?Medication ?Instructions ?Recorded nitroglycerin 0.4 mg sublingual 0.4 mg sublingual Q5M PRN chest 11/19/22 tablet pain #30 tabs peg 3350-electrolytes 236 240 ml PO Q10M 1 day #4,000 mL 01/28/23 gram-22.74 gram-6.74 gram-5.86 gram solution (Golytely) benzonatate 200 mg capsule 200 mg PO TID PRN cough 5 days #15 03/06/23 caps atorvastatin 80 mg tablet 80 mg PO BEDTIME #90 tabs 07/21/23 metoprolol succinate 50 mg 75 mg (1.5 x 50 mg) PO QAM #135 09/28/23 tablet,extended release 24 hr tabs simethicone 180 mg capsule 180 mg PO QID 30 days #120 caps 12/01/23 isosorbide mononitrate 60 mg 60 mg PO DAILY #90 tabs 04/14/24 tablet,extended release 24 hr hydrocortisone 1 % topical cream 1 appl SD TID #28.4 grams 08/03/24 with perineal applicator metoclopramide HCl 5 mg tablet 5 mg PO QIDACHS #120 tabs 08/03/24 (Reglan) pantoprazole 40 mg tablet,delayed 40 mg PO QAM #90 tabs 08/03/24 release sodium,potassium,mag sulfates 17.5 480 ml PO .COMPLEX #354 mL 08/03/24 gram-3.13 gram-1.6 gram oral soln (Suprep Bowel Prep Kit) aspirin 81 mg tablet,delayed 81 mg PO DAILY #90 tabs 08/19/24 release Allergies Allergy/AdvReac Type Severity Reaction Status Date / Time peanut Allergy Severe angioedema Verified 09/26/24 11:31 lisinopril [LISINOPRIL] Allergy Intermediate RASH, cough Verified 09/26/24 11:31 zoster vaccine live Allergy Intermediate LOCALIZED Verified 09/26/24 11:31 [SHINGLES VACCINE] REDNESS, SWELLING, FEVER,COUGH latex [LATEX] Allergy Unknown RASH Verified 09/26/24 11:31 pineapple [PINEAPPLE] Allergy Unknown RASH Verified 09/26/24 11:31 strawberry [STRAWBERRY] Allergy Unknown RASH Verified 09/26/24 11:31 adhesive Allergy Blister Verified 09/26/24 11:31 Review of Systems Review of Systems: All other systems are reviewed and are negative Constitutional: Reports as per HPI and Reports no additional constitutional complaints Eyes: Reports as per HPI and Reports no additional eye complaints Reports system reviewed and no additional complaints, except as documented Cardiovascular: Reports as per HPI and Reports no additional cardiovascular complaints Respiratory: Reports as per HPI and Reports no additional respiratory complaints Gastrointestinal: Reports as per HPI and Reports no additional gastrointestinal complaints Genitourinary: Reports no additional female genitourinary complaints Musculoskeletal: Reports no additional musculoskeletal complaints Skin/Breast: Reports system reviewed and no additional complaints, except as docu Psychiatric: Reports no additional psychiatric complaints Endocrine: Reports no additional endocrine complaints Hematologic/Lymphatic: Reports no additional hematologic/lymphatic complaints Allergic/Immunologic: Reports no additional allergic/immunologic complaints Reports system reviewed and no additional complaints, except as documented and Reports Abnormal speech present [facility] Past Medical History Medical History COVID-19 Palpitation Precordial chest pain Hemorrhoids Abdominal bloating Abdominal cramping Back pain Encounter for monitoring anti-arrhythmic therapy Fracture of proximal phalanx of right ring finger Syncope and collapse Acute non-ST elevation myocardial infarction (NSTEMI) Fracture of lesser tuberosity of right humerus Fracture of proximal end of right humerus Family history of ovarian cancer Early satiety COPD (chronic obstructive pulmonary disease) Cataract GUADALUPE (obstructive sleep apnea) Obesity (BMI 30-39.9) Hemorrhoids with complication GUADALUPE (obstructive sleep apnea) Hemorrhoids with complication NSVT (nonsustained ventricular tachycardia) PVC (premature ventricular contraction) Surgical History History of cardiac cath S/P ablation of ventricular arrhythmia S/P cardiac cath S/P cardiac catheterization History of coronary artery stent placement History of esophagogastroduodenoscopy (EGD) Hx of colonoscopy History of shoulder surgery (~04/29/18) History of lumbar laminectomy Family History Family History Father Cardiovascular disease Mother Osteoarthritis Family/Other Ovarian cancer, Onset Age: 30 Social History Social History Household Members: Spouse Alcohol intake: never Patient Tobacco Use Status: Never used Tobacco Smoked in Last 30 Days: No Use of substances other than those prescribed or required for medical reasons: No Advance Directives: No Advance Directives Information Provided: Yes service: No Current occupational status: unemployed Current occupation: rt handed Physical Exam Vital Signs: Vital Signs: Last Vital Signs Temp 98.0 F 09/26/24 17:35 Pulse 72 09/26/24 17:35 Resp 16 09/26/24 17:35 BP 103/62 09/26/24 17:35 Pulse Ox 96 09/26/24 17:35 O2 Del Method Room Air 09/26/24 17:35 BMI result Body Mass Index 32.7 Vital signs have been reviewed and appear to be correct. Blood pressure elevated. Heart rate normal. Respiratory rate normal. Temperature normal. Oxygen saturation normal. Appearance: Alert. Oriented X3. No acute distress. Head: Normal external exam. Normocephalic. Atraumatic. No Ramon signs noted. No raccoon eyes noted Eyes: PERRLA. EOMI. Conjunctiva and sclera normal. Eyelids normal. ENT: TM's Normal. Pharynx normal. Uvula midline. Moist mucous membranes. No trismus noted. No drooling noted. No muffled voice noted. Neck: Normal inspection. Neck supple. FROM. No adenopathy. Thyroid Normal. No meningeal signs. No neck mass noted. CVS: Normal heart rate and rhythm. Heart sound normal. No murmurs noted. Pulses normal throughout. Respiratory: No respiratory distress. Painless inspiration. Breath sounds normal. No wheezes/rales/rhonchi noted. Chest nontender. No accessory muscle usage noted or decreased air movement noted. Abdomen: Soft and nontender. Bowel sounds normal in all 4 quadrants. No distention noted. No organomegaly noted. No visible injury noted. Back: No CVA tenderness. Full range of motion noted. Skin: Skin warm and dry. Normal skin color. Normal skin turgor. No rashes/lesions/lacerations noted. Extremities: Left upper extremity exam: No swelling, no ecchymosis or bruises is appreciated, neurovascularly intact. Neuro: Mental status: Normal attention, orientation, memory, and affect. Cranial nerves: Pupils are equal, round and reactive to light, EOMI, visual esteves are fall, face is symmetric, facial sensations are normal. Motor examination normal muscle tone, strength to 4 extremities. DTR are +2, planter's are flexor. Sensory exam; normal coordination, no ataxia, gait stable. Cerebellar exam: Ccjger-hf-ksgy and shqp-sh-lpcp is normal. Extrapyramidal system: No tremors, no rigidity with normal facial expressions. Pronator drift not present Course Course Course Narrative: RME performed by Shahrzad Dunn PA-C. Patient is a 69 year old assigned female at presenting to the emergency department with chest pain and bruising. Patient states that 2 days ago she noticed bruising to her chest that has now resolved and she has bruising on her left palm. Patient states that she is on blood thinners and does have a history of cardiac events. Detailed physical exam and review of systems are deferred to the medication coordinator. EKG, labs, imaging, and swabs ordered. Patient placed back in the waiting room pending room availability and results. Reevaluation(s) Reevaluation #1: chest pain, unchanged EKG with negative cardiac marker x2 making ACS is unfavorable diagnosis patient instructed to follow-up with a catering administrative assistant. Unremarkable labs and workup today. Time: 17:48 Medical Decision Making Differential Diagnosis Differential Diagnoses: The differential diagnosis associated with the presentation includes ( ACS, pulmonary embolism, severe anemia, electrolyte derangement, pneumonia, pneumothorax, pleural effusion,) Admission/Observation Consideration of admission/observation: Escalation of care including admission/observation considered Lab Data MDM Lab Attestation statement: I reviewed the patient's lab results. 09/26/24 11:46 09/26/24 11:46 Labs: Lab Results 09/26/24 09/26/24 Range/Units 11:46 15:19 WBC 10.0 (4.8-10.8) X10*3/uL RBC 5.17 (4.20-5.50) X10*6/uL Hgb 14.2 (12.0-16.0) g/dl Hct 44.5 (37.0-47.0) % MCV 86.1 (80.0-98.0) fL MCH 27.5 (27.0-33.0) pg MCHC 31.9 (31.0-35.0) g/dl RDW 14.9 (11.0-16.0) % Plt Count 236 (160-400) X10*3/uL MPV 10.8 (9.4-12.3) fL Immature Gran % (Auto) 0.6 H (0.0-0.4) % Neut % (Auto) 66.7 (45-73) % Lymph % (Auto) 24.0 (20-40) % [place] % (Auto) 5.5 (2-11) % Eos % (Auto) 2.2 (0-4) % Baso % (Auto) 1.0 (0-2) % Lymph # (Auto) 2.4 (1.2-4.9) X10*3/uL [place] # (Auto) 0.6 (0.1-1.2) X10*3/uL Eos # (Auto) 0.2 (0.0-0.4) X10*3/uL Baso # (Auto) 0.1 (0.0-0.2) X10*3/uL Abs Immat Gran (auto) 0.06 H (0.00-0.03) X10*3/uL Absolute Neuts (auto) 6.7 (2.0-8.3) x10*3/uL Absolute Nucleated RBC 0.000 (0.0-0.012) X10*3/uL Nucleated RBC % (auto) 0.0 (0.0-0.2) /100WBC PT 11.3 (10.9-12.4) SEC INR 1.0 (0.9-1.1) Sodium 144 (135-145) mmol/L Potassium 4.5 (3.3-5.1) mmol/L Chloride 112 H (96-108) mmol/L Carbon Dioxide 24 (22-29) mmol/L Anion Gap 13 (12-20) BUN 20 H (9-16) mg/dL Creatinine 0.95 (0.5-1.4) mg/dL Estim Creat Clear Calc 58.1 Estimated GFR 58 Random Glucose 138 H (60-115) mg/dL Calcium 9.3 (8.4-10.2) mg/dL Magnesium 2.1 (1.6-2.6) mg/dL Total Bilirubin 0.2 (0.0-1.0) mg/dL AST 22 (5-31) U/L ALT 21 (0-31) U/L Alkaline Phosphatase 116 (39-117) U/L Troponin I High Sens < 2.7 < 2.7 (<3.5-17.0) ng/L Total Protein 6.3 L (6.5-8.0) g/dL Albumin 3.9 (3.5-5.0) g/dL Influenza Type A (PCR) NEGATIVE (Negative) Influenza Type B (PCR) NEGATIVE (Negative) RSV RNA Qual (PCR) NEGATIVE (Negative) SARS-CoV-2 RNA (RT-PCR) NEGATIVE (Negative) Independent Interpretation I performed an independent interpretation of an: EKG ( normal sinus rhythm at 72 beats per minute, first-degree AV block, LBBB.) and Plain X-Ray ( chest: No acute airspace disease) Radiology Impression Discussion of test interpretation with radiology: I have reviewed the radiologist's reading. Discharge Plan Discharge Clinical Impression: Chest pain Patient Disposition: Home, Self-Care Instructions: Chest Pain (ED) Prescriptions: No Action isosorbide mononitrate 60 mg tablet extended release 24 hr 60 mg PO DAILY Qty: 90 3RF aspirin 81 mg tablet,delayed release (DR/EC) 81 mg PO DAILY Qty: 90 3RF benzonatate 200 mg capsule 200 mg PO TID PRN (Reason: cough) 5 Days Qty: 15 0RF loratadine 10 mg tablet 10 mg PO BEDTIME pregabalin [Lyrica] 50 mg capsule 50 mg PO BID albuterol sulfate [ProAir HFA] 90 mcg/actuation HFA aerosol inhaler 2 puff PO Q4H nitroglycerin 0.4 mg tablet, sublingual 0.4 mg sublingual Q5M PRN (Reason: chest pain) Qty: 30 5RF Rx Instructions: do not exceed 3 doses per episode peg 3350-electrolytes [Golytely] 236-22.74-6.74 -5.86 gram recon soln 240 ml PO Q10M 1 Days Qty: 4000 0RF Rx Instructions: until fecal effluent is clear; do not exceed a total volume of 2,000 mL simethicone 180 mg capsule 180 mg PO QID 30 Days Qty: 120 6RF Rx Instructions: after meals sodium,potassium,mag sulfates [Suprep Bowel Prep Kit] 17.5-3.13-1.6 gram recon soln 480 ml PO .COMPLEX Qty: 354 0RF Rx Instructions: 480 mL orally; FOR COLONOSCOPY PREP metoclopramide HCl [Reglan] 5 mg tablet 5 mg PO QIDACHS Qty: 120 6RF pantoprazole 40 mg tablet,delayed release (DR/EC) 40 mg PO QAM Qty: 90 2RF hydrocortisone 1 % cream with perineal applicator 1 appl SD TID Qty: 28.4 6RF fluticasone propionate 50 mcg/actuation spray,suspension intranasal lidocaine 5 % ointment 1 appl topical PRN Spiriva Respimat 1.25 mcg/actuation mist 2 puff inhalation DAILY budesonide-formoterol [Symbicort] 160-4.5 mcg/actuation HFA aerosol inhaler 2 puff inhalation BID atorvastatin 80 mg tablet 80 mg PO BEDTIME Qty: 90 3RF metoprolol succinate 50 mg tablet extended release 24 hr 75 mg PO QAM Qty: 135 3RF Rx Instructions: dose increased Ozempic 0.25 mg or 0.5 mg (2 mg/3 mL) pen injector subcut Referrals: Jenny Vázquez MD [Primary Care Provider] - Bishnu Cesar MD [Physician] - Print Language: Kinyarwanda
--- NOTE | 2024-09-26 11:34 | ECG_ITS ---
Test Reason : CHEST PAIN Blood Pressure : */* mmHG Vent. Rate : 72 BPM Atrial Rate : 72 BPM P-R Int : 276 ms QRS Dur : 138 ms QT Int : 464 ms P-R-T Axes : 49 44 80 degrees QTcB Int : 508 ms Sinus rhythm with 1st degree A-V block Left bundle branch block Abnormal ECG When compared with ECG of 26-Sep-2024 11:18, Premature ventricular complexes are no longer Present Referred By: Sandra Aldrich Electronically Signed By: Xavier Fuentes
[2024-09-26 12:19] LABS: MANUAL DIFF FLAG NO
[2024-09-26 12:21] LABS: Basophils Absolute Auto 0.1 X10*3/uL (0.0-0.2); Eosinophils Absolute Auto 0.2 X10*3/uL (0.0-0.4); Eosinophils Percent Auto 2.2 % (0-4); Hematocrit 44.5 % (37.0-47.0); Hemoglobin 14.2 g/dl (12.0-16.0); Imm Gran Abs Auto 0.06 X10*3/uL (0.00-0.03); Imm Gran Pct Auto 0.6 % (0.0-0.4); Lymphocytes Absolute Auto 2.4 X10*3/uL (1.2-4.9); Mean Corpuscular HGB Conc 31.9 g/dl (31.0-35.0); Mean Corpuscular Hemoglobin 27.5 pg (27.0-33.0); Mean Corpuscular Volume 86.1 fL (80.0-98.0); Mean Platelet Volume 10.8 fL (9.4-12.3); Monocytes Absolute Auto 0.6 X10*3/uL (0.1-1.2); Monocytes Percent Auto 5.5 % (2-11); Neutrophils Absolute Auto 6.7 x10*3/uL (2.0-8.3); Neutrophils Percent Auto 66.7 % (45-73); Platelet Count 236 X10*3/uL (160-400); Red Blood Count 5.17 X10*6/uL (4.20-5.50); Red Cell Distribution Width 14.9 % (11.0-16.0)
[2024-09-26 12:27] LABS: Prothrombin Time 11.3 SEC (10.9-12.4)
[2024-09-26 12:36] LABS: Alanine Aminotransferase 21 U/L (0-31); Albumin Level 3.9 g/dL (3.5-5.0); Alkaline Phosphatase 116 U/L (39-117); Anion Gap 13 (12-20); Aspartate Amino Transferase 22 U/L (5-31); Bilirubin Total 0.2 mg/dL (0.0-1.0); Blood Urea Nitrogen 20 mg/dL (9-16); Calcium 9.3 mg/dL (8.4-10.2); Carbon Dioxide 24 mmol/L (22-29); Chloride 112 mmol/L (96-108); Creatinine Clr Calc Pharmacy 58.1; Estimated Glomerular Filt Rate 58; Glucose Random 138 mg/dL (60-115); Magnesium 2.1 mg/dL (1.6-2.6); Potassium 4.5 mmol/L (3.3-5.1); Sodium 144 mmol/L (135-145); Total Protein 6.3 g/dL (6.5-8.0)
[2024-09-26 12:46] LABS: Troponin-I High Sensitivity < 2.7 ng/L (<3.5-17.0)
[2024-09-26 12:56] LABS: Influenza A PCR NEGATIVE (Negative); Influenza B PCR NEGATIVE (Negative); Resp Syncy Virus RNA Qual PCR NEGATIVE (Negative); SARS COV2 PCR INHOUSE NEGATIVE (Negative)
--- OUTSIDE RECORDS SUMMARY | 2024-09-26 13:25 | XMS_ITS | Encounter Summary ---
Author Organization [employer] Address [address] [place] [address] Care Team Providers Care Director Motion Picture Name Role Phone Jenny Vázquez MD Primary Care Provider [phone] Encounter Details Date Type Department Care Team (Late st Contact Info) Description 10/31/2022 Abstract [facility] [address] [place] [address] Jenny Vázquez MD [address] [place] [address] Social History Tobacco Use Types Packs/Day Years [...] Description 10/11/2024 2:15 PM EDT Office Visit [facility] [address] [place] [address] Jenny Vázquez MD [address] [place] [address] 2025 1:00 PM EDT Office Visit [facility] [address], [place] [id number] Marialuisa Parsnos documented as of this encounter Procedures Procedure Name Priority Date/Time Associated Diagnosis Comments PAP/HPV Routine 10/02/2022 documented in this encounter Results * Pap Smear (10/02/2022) Pap Negative for intraephithelial lesion or malignancy Negative for intraephithelial lesion or malignancy, Other HPV Undetected Result [facility] HEALTH MAINTENANCE Final Result documented in this encounter Visit Diagnoses Not on filedocumented in this encounter Additional Health Concerns Assessment Noted Time PHQ-9 Depression Total Score: 0 10/22/19 23 1:17 PM EDT documented as of this encounter Care Teams Director Motion Picture Relationship Specialty Start Date End Date Jenny Vázquez MD [address] [place] [id number] PCP - General Family Medicine 04/13/18 documented as of this encounter
--- NOTE | 2024-09-26 13:53 | PC.NURSE ---
Pt resting, S/O at bedside. VSS SR no ectopy- states pain remains intermittent as before. NAD. A&O X4.
--- NOTE | 2024-09-26 15:00 | PC.NURSE ---
Pt remains A&O X4, pain still intermittent as before. VSS NSR no ectopy on monitor- resting and visiting with S/o. NAD no other complaints.
[2024-09-26 15:45] LABS: Troponin-I High Sensitivity < 2.7 ng/L (<3.5-17.0)
--- NOTE | 2024-09-26 17:07 | PC.NURSE ---
Back charting from 1530, tech approached this RN about pt BP being in the sys of 90s, Pt also then reported that she was reporting her CP had returned, she stated it felt tight, and that she felt mild SOB. Provider made aware, EKG placed, no new orders at this time. At 1700 this RN re-assessed pt and she stated the pain had resolved.
== END 2024-09-26 19:13 | disposition home or self-care (01) ==
PROVIDERS: Physician Assistant Medical; Emergency Provider Emergency Medicine; PCP Family Medicine
DX: R07.9 Chest pain, unspecified (principal); Z03.818 Encounter for observation for suspected exposure to other biological agents ruled out; E11.9 Type 2 diabetes mellitus without complications; J44.9 Chronic obstructive pulmonary disease, unspecified; Z95.5 Presence of coronary angioplasty implant and graft; Z79.82 Long term (current) use of aspirin; Z79.899 Other long term (current) drug therapy; Z79.02 Long term (current) use of antithrombotics/antiplatelets
CPT/HCPCS: 0241U; 36415; 71046; 80053; 83735; 84484; 85025; 85610; 93005; 99283; 99285

== ENCOUNTER → 2024-09-26 11:17 | Outpatient (BNV) | payer MEDICARE, SELFPAY | PROVIDERS: Emergency Provider Emergency Medicine; PCP Family Medicine; Visit Provider Internal Medicine Cardiovascular Disease | DX: I44.0 Atrioventricular block, first degree (principal); I49.3 Ventricular premature depolarization; I44.7 Left bundle-branch block, unspecified | CPT/HCPCS: 93010 ==

== ENCOUNTER → 2024-09-26 11:35 | Outpatient (BNV) | payer MEDICARE, SELFPAY | PROVIDERS: Emergency Provider Emergency Medicine; PCP Family Medicine; Visit Provider Radiology Diagnostic Radiology | DX: R07.9 Chest pain, unspecified (principal) | CPT/HCPCS: 71046 ==

== ENCOUNTER 2024-10-04 15:15 | Emergency (ER) | payer MEDICARE, SELFPAY ==
[2024-10-04 15:15] VITALS: PULSE 75
[2024-10-04 15:23] VITALS: BP 121/74; PULSE 80; O2SAT 98
--- NOTE | 2024-10-04 15:26 | ECG_ITS ---
Test Reason : CHEST PAIN Blood Pressure : */* mmHG Vent. Rate : 95 BPM Atrial Rate : 95 BPM P-R Int : 230 ms QRS Dur : 134 ms QT Int : 394 ms P-R-T Axes : 24 12 91 degrees QTcB Int : 495 ms Sinus rhythm with 1st degree A-V block Left bundle branch block Abnormal ECG When compared with ECG of 26-Sep-2024 15:40, No significant change was found Referred By: Generic ED Physician Electronically Signed By: ROSIO MONTERO
[2024-10-04 15:27] VITALS: BP 98/66; PULSE 94; RESP 20; TEMP 37.2; O2SAT 94; BMI 33.0
[2024-10-04 15:44] LABS: MANUAL DIFF FLAG NO
[2024-10-04 15:48] LABS: Basophils Absolute Auto 0.1 X10*3/uL (0.0-0.2); Basophils Percent Auto 0.6 % (0-2); Eosinophils Absolute Auto 0.1 X10*3/uL (0.0-0.4); Eosinophils Percent Auto 0.4 % (0-4); Hematocrit 39.2 % (37.0-47.0); Hemoglobin 13.2 g/dl (12.0-16.0); Imm Gran Abs Auto 0.04 X10*3/uL (0.00-0.03); Imm Gran Pct Auto 0.3 % (0.0-0.4); Lymphocytes Absolute Auto 1.2 X10*3/uL (1.2-4.9); Lymphocytes Percent Auto 10.4 % (20-40); Mean Corpuscular HGB Conc 33.7 g/dl (31.0-35.0); Mean Corpuscular Hemoglobin 27.9 pg (27.0-33.0); Mean Corpuscular Volume 82.9 fL (80.0-98.0); Mean Platelet Volume 10.1 fL (9.4-12.3); Monocytes Absolute Auto 0.7 X10*3/uL (0.1-1.2); Neutrophils Absolute Auto 9.4 x10*3/uL (2.0-8.3); Neutrophils Percent Auto 82.3 % (45-73); Platelet Count 216 X10*3/uL (160-400); Red Blood Count 4.73 X10*6/uL (4.20-5.50); Red Cell Distribution Width 14.8 % (11.0-16.0); White Blood Count 11.5 X10*3/uL (4.8-10.8)
[2024-10-04 16:12] LABS: B Type Natriuretic Peptide 33 pg/mL (<100)
[2024-10-04 16:18] LABS: Alanine Aminotransferase 15 U/L (0-31); Albumin Level 3.8 g/dL (3.5-5.0); Alkaline Phosphatase 98 U/L (39-117); Anion Gap 12 (12-20); Aspartate Amino Transferase 21 U/L (5-31); Bilirubin Total 0.3 mg/dL (0.0-1.0); Blood Urea Nitrogen 22 mg/dL (9-16); Calcium 9.3 mg/dL (8.4-10.2); Carbon Dioxide 21 mmol/L (22-29); Chloride 110 mmol/L (96-108); Creatinine Clr Calc Pharmacy 65.2; Estimated Glomerular Filt Rate > 60; Glucose Random 119 mg/dL (60-115); Magnesium 2.2 mg/dL (1.6-2.6); Potassium 4.2 mmol/L (3.3-5.1); Sodium 139 mmol/L (135-145); Total Protein 6.1 g/dL (6.5-8.0)
[2024-10-04 16:25] LABS: Troponin-I High Sensitivity < 2.7 ng/L (<3.5-17.0)
--- NOTE | 2024-10-04 16:53 | ED.CHESTPAIN ---
HPI - Chest Pain General Chief Complaint: Chest Pain Stated Complaint: chest pain Time Seen by Provider: 10/04/24 16:43 Source: patient and family (Spouse) Mode of arrival: ambulatory Limitations: no limitations History of Present Illness ED Provider: DR. Aldrich HPI narrative: this is a 69-year-old female with known history of coronary artery disease diagnosed in 2022 after patient sustained non STEMI had stent placed in the RCA with known LAD/circumflex artery disease that has been treated medically. History of DM, hypertension, HLD, GUADALUPE, PVC. Patient's symptoms started yesterday with mid chest pressure radiating to the left arm on and off since yesterday, pain was initially associated with no other symptoms including shortness of breath, no fever, no chills, no recent travel, no lower extremity swelling or tenderness. Related Data Home Medications ?Medication ?Instructions ?Recorded ?Confirmed loratadine 10 mg tablet 10 mg PO BEDTIME 02/09/20 09/21/24 pregabalin 50 mg capsule (Lyrica) 50 mg PO BID 02/09/20 09/21/24 albuterol sulfate 90 mcg/actuation 2 puff PO Q4H 09/26/21 09/21/24 aerosol inhaler (ProAir HFA) lidocaine 5 % topical ointment 1 appl topical PRN 10/20/22 09/21/24 fluticasone propionate 50 spray intranasal 11/03/22 09/21/24 mcg/actuation nasal spray,suspension tiotropium bromide 1.25 2 puff inhalation DAILY 11/19/22 09/21/24 mcg/actuation mist for inhalation (Spiriva Respimat) budesonide-formoterol HFA 160 2 puff inhalation BID 05/20/23 09/21/24 mcg-4.5 mcg/actuation aerosol inhaler (Symbicort) semaglutide 0.25 mg or 0.5 mg (2 mg subcut 04/18/24 09/21/24 mg/3 mL) subcutaneous pen injector (Ozempic) Previous Rx's ?Medication ?Instructions ?Recorded nitroglycerin 0.4 mg sublingual 0.4 mg sublingual Q5M PRN chest 11/19/22 tablet pain #30 tabs peg 3350-electrolytes 236 240 ml PO Q10M 1 day #4,000 mL 01/28/23 gram-22.74 gram-6.74 gram-5.86 gram solution (Golytely) benzonatate 200 mg capsule 200 mg PO TID PRN cough 5 days #15 03/06/23 caps atorvastatin 80 mg tablet 80 mg PO BEDTIME #90 tabs 07/21/23 simethicone 180 mg capsule 180 mg PO QID 30 days #120 caps 12/01/23 Held on 08/03/24. Instructions: pt has too much isosorbide mononitrate 60 mg 60 mg PO DAILY #90 tabs 04/14/24 tablet,extended release 24 hr hydrocortisone 1 % topical cream 1 appl NM TID #28.4 grams 08/03/24 with perineal applicator metoclopramide HCl 5 mg tablet 5 mg PO QIDACHS #120 tabs 08/03/24 (Reglan) pantoprazole 40 mg tablet,delayed 40 mg PO QAM #90 tabs 08/03/24 release sodium,potassium,mag sulfates 17.5 480 ml PO .COMPLEX #354 mL 08/03/24 gram-3.13 gram-1.6 gram oral soln (Suprep Bowel Prep Kit) aspirin 81 mg tablet,delayed 81 mg PO DAILY #90 tabs 08/19/24 release metoprolol succinate 50 mg 75 mg (1.5 x 50 mg) PO QAM #135 10/03/24 tablet,extended release 24 hr tabs Allergies Allergy/AdvReac Type Severity Reaction Status Date / Time peanut Allergy Severe angioedema Verified 10/04/24 15:28 lisinopril (LISINOPRIL) Allergy Intermediate RASH, cough Verified 10/04/24 15:28 zoster vaccine live Allergy Intermediate LOCALIZED Verified 10/04/24 15:28 (SHINGLES VACCINE) REDNESS, SWELLING, FEVER,COUGH latex (LATEX) Allergy Unknown RASH Verified 10/04/24 15:28 pineapple (PINEAPPLE) Allergy Unknown RASH Verified 10/04/24 15:28 strawberry (STRAWBERRY) Allergy Unknown RASH Verified 10/04/24 15:28 adhesive Allergy Blister Verified 10/04/24 15:28 Review of Systems Review of Systems: All other systems are reviewed and are negative Constitutional: Reports as per HPI and Reports no additional constitutional complaints Eyes: Reports as per HPI and Reports no additional eye complaints Reports system reviewed and no additional complaints, except as documented Cardiovascular: Reports as per HPI and Reports no additional cardiovascular complaints Respiratory: Reports as per HPI and Reports no additional respiratory complaints Gastrointestinal: Reports as per HPI and Reports no additional gastrointestinal complaints Genitourinary: Reports no additional female genitourinary complaints Musculoskeletal: Reports no additional musculoskeletal complaints Skin/Breast: Reports system reviewed and no additional complaints, except as docu Psychiatric: Reports no additional psychiatric complaints Endocrine: Reports no additional endocrine complaints Hematologic/Lymphatic: Reports no additional hematologic/lymphatic complaints Allergic/Immunologic: Reports no additional allergic/immunologic complaints Reports system reviewed and no additional complaints, except as documented and Reports Abnormal speech present [facility] Past Medical History Medical History COVID-19 Palpitation Precordial chest pain Hemorrhoids Abdominal bloating Abdominal cramping Back pain Encounter for monitoring anti-arrhythmic therapy Fracture of proximal phalanx of right ring finger Syncope and collapse Acute non-ST elevation myocardial infarction (NSTEMI) Fracture of lesser tuberosity of right humerus Fracture of proximal end of right humerus Family history of ovarian cancer Early satiety COPD (chronic obstructive pulmonary disease) Cataract GUADALUPE (obstructive sleep apnea) Obesity (BMI 30-39.9) Hemorrhoids with complication GUADALUPE (obstructive sleep apnea) Hemorrhoids with complication NSVT (nonsustained ventricular tachycardia) PVC (premature ventricular contraction) Surgical History History of cardiac cath S/P ablation of ventricular arrhythmia S/P cardiac cath S/P cardiac catheterization History of coronary artery stent placement History of esophagogastroduodenoscopy (EGD) Hx of colonoscopy History of shoulder surgery (~04/29/18) History of lumbar laminectomy Family History Family History Father Cardiovascular disease Mother Osteoarthritis Family/Other Ovarian cancer, Onset Age: 30 Social History Social History Household Members: Spouse Alcohol intake: never Patient Tobacco Use Status: Never used Tobacco Smoked in Last 30 Days: No Use of substances other than those prescribed or required for medical reasons: No Advance Directives: No Advance Directives Information Provided: No service: No Current occupational status: unemployed Current occupation: rt handed Physical Exam Vital Signs: Vital Signs: Last Vital Signs Temp 98.9 F 10/04/24 15:27 Pulse 94 10/04/24 15:27 Resp 20 10/04/24 15:27 BP 98/66 10/04/24 15:27 Pulse Ox 94 10/04/24 15:27 O2 Del Method Room Air 10/04/24 15:27 BMI result Body Mass Index 33.0 Vital signs have been reviewed and appear to be correct. Blood pressure elevated. Heart rate normal. Respiratory rate normal. Temperature normal. Oxygen saturation normal. Appearance: Alert. Oriented X3. No acute distress. Head: Normal external exam. Normocephalic. Atraumatic. No Ramon signs noted. No raccoon eyes noted Eyes: PERRLA. EOMI. Conjunctiva and sclera normal. Eyelids normal. ENT: TM's Normal. Pharynx normal. Uvula midline. Moist mucous membranes. No trismus noted. No drooling noted. No muffled voice noted. Neck: Normal inspection. Neck supple. FROM. No adenopathy. Thyroid Normal. No meningeal signs. No neck mass noted. CVS: Normal heart rate and rhythm. Heart sound normal. No murmurs noted. Pulses normal throughout. Respiratory: No respiratory distress. Painless inspiration. Breath sounds normal. No wheezes/rales/rhonchi noted. Chest nontender. No accessory muscle usage noted or decreased air movement noted. Abdomen: Soft and nontender. Bowel sounds normal in all 4 quadrants. No distention noted. No organomegaly noted. No visible injury noted. Back: No CVA tenderness. Full range of motion noted. Skin: Skin warm and dry. Normal skin color. Normal skin turgor. No rashes/lesions/lacerations noted. Extremities: No lower extremity edema. Extremities exhibit normal range of motion. Extremities nontender. Neuro: Oriented X 3. Cranial nerve exam: II-XII are grossly intact No motor deficit. No sensory deficit. Reflexes normal. Course Reevaluation(s) Reevaluation #1: chest pain, unchanged EKG with negative cardiac marker x2 making ACS is unfavorable diagnosis patient instructed to follow-up with a internal controls analyst. Patient at low risk for pulmonary embolism with negative D-dimer. Unremarkable labs and workup today. Time: 19:16 Medical Decision Making Differential Diagnosis Differential Diagnoses: The differential diagnosis associated with the presentation includes (ACS, pulmonary embolism, severe anemia, electrolyte derangement, pneumonia, pneumothorax, pleural effusion) Admission/Observation Consideration of admission/observation: Escalation of care including admission/observation considered Lab Data MDM Lab Attestation statement: I reviewed the patient's lab results. 10/04/24 15:34 10/04/24 15:57 Labs: Lab Results 10/04/24 10/04/24 10/04/24 Range/Units 15:34 15:57 18:22 WBC 11.5 H (4.8-10.8) X10*3/uL RBC 4.73 (4.20-5.50) X10*6/uL Hgb 13.2 (12.0-16.0) g/dl Hct 39.2 (37.0-47.0) % MCV 82.9 (80.0-98.0) fL MCH 27.9 (27.0-33.0) pg MCHC 33.7 (31.0-35.0) g/dl RDW 14.8 (11.0-16.0) % Plt Count 216 (160-400) X10*3/uL MPV 10.1 (9.4-12.3) fL Immature Gran % (Auto) 0.3 (0.0-0.4) % Neut % (Auto) 82.3 H (45-73) % Lymph % (Auto) 10.4 L (20-40) % Callaway % (Auto) 6.0 (2-11) % Eos % (Auto) 0.4 (0-4) % Baso % (Auto) 0.6 (0-2) % Lymph # (Auto) 1.2 (1.2-4.9) X10*3/uL Callaway # (Auto) 0.7 (0.1-1.2) X10*3/uL Eos # (Auto) 0.1 (0.0-0.4) X10*3/uL Baso # (Auto) 0.1 (0.0-0.2) X10*3/uL Abs Immat Gran (auto) 0.04 H (0.00-0.03) X10*3/uL Absolute Neuts (auto) 9.4 H (2.0-8.3) x10*3/uL Absolute Nucleated RBC 0.000 (0.0-0.012) X10*3/uL Nucleated RBC % (auto) 0.0 (0.0-0.2) /100WBC PT 12.0 (10.9-12.4) SEC INR 1.0 (0.9-1.1) D-Dimer High Sensitivty 187 NG/ML Sodium 139 (135-145) mmol/L Potassium 4.2 (3.3-5.1) mmol/L Chloride 110 H (96-108) mmol/L Carbon Dioxide 21 L (22-29) mmol/L Anion Gap 12 (12-20) BUN 22 H (9-16) mg/dL Creatinine 0.85 (0.5-1.4) mg/dL Estim Creat Clear Calc 65.2 Estimated GFR > 60 Random Glucose 119 H (60-115) mg/dL Calcium 9.3 (8.4-10.2) mg/dL Magnesium 2.2 (1.6-2.6) mg/dL Total Bilirubin 0.3 (0.0-1.0) mg/dL AST 21 (5-31) U/L ALT 15 (0-31) U/L Alkaline Phosphatase 98 (39-117) U/L Troponin I High Sens < 2.7 < 2.7 (<3.5-17.0) ng/L B-Natriuretic Peptide 33 (<100) pg/mL Total Protein 6.1 L (6.5-8.0) g/dL Albumin 3.8 (3.5-5.0) g/dL Independent Interpretation I performed an independent interpretation of an: EKG (Sinus rhythm at 95 beats per minutes with first-degree AV block, LBBB, no change from previous EKG.) and Plain X-Ray (Chest: No acute cardiopulmonary disease) Radiology Impression Discussion of test interpretation with radiology: I have reviewed the radiologist's reading. Discharge Plan Discharge Clinical Impression: Atypical chest pain Patient Disposition: Home, Self-Care Instructions: Chest Pain (ED) Prescriptions: No Action isosorbide mononitrate 60 mg tablet extended release 24 hr 60 mg PO DAILY Qty: 90 3RF aspirin 81 mg tablet,delayed release (DR/EC) 81 mg PO DAILY Qty: 90 3RF metoprolol succinate 50 mg tablet extended release 24 hr 75 mg PO QAM Qty: 135 3RF benzonatate 200 mg capsule 200 mg PO TID PRN (Reason: cough) 5 Days Qty: 15 0RF loratadine 10 mg tablet 10 mg PO BEDTIME pregabalin [Lyrica] 50 mg capsule 50 mg PO BID albuterol sulfate [ProAir HFA] 90 mcg/actuation HFA aerosol inhaler 2 puff PO Q4H nitroglycerin 0.4 mg tablet, sublingual 0.4 mg sublingual Q5M PRN (Reason: chest pain) Qty: 30 5RF Rx Instructions: do not exceed 3 doses per episode peg 3350-electrolytes [Golytely] 236-22.74-6.74 -5.86 gram recon soln 240 ml PO Q10M 1 Days Qty: 4000 0RF Rx Instructions: until fecal effluent is clear; do not exceed a total volume of 2,000 mL simethicone 180 mg capsule 180 mg PO QID 30 Days Qty: 120 6RF Rx Instructions: after meals sodium,potassium,mag sulfates [Suprep Bowel Prep Kit] 17.5-3.13-1.6 gram recon soln 480 ml PO .COMPLEX Qty: 354 0RF Rx Instructions: 480 mL orally; FOR COLONOSCOPY PREP metoclopramide HCl [Reglan] 5 mg tablet 5 mg PO QIDACHS Qty: 120 6RF pantoprazole 40 mg tablet,delayed release (DR/EC) 40 mg PO QAM Qty: 90 2RF hydrocortisone 1 % cream with perineal applicator 1 appl NM TID Qty: 28.4 6RF fluticasone propionate 50 mcg/actuation spray,suspension intranasal lidocaine 5 % ointment 1 appl topical PRN Spiriva Respimat 1.25 mcg/actuation mist 2 puff inhalation DAILY budesonide-formoterol [Symbicort] 160-4.5 mcg/actuation HFA aerosol inhaler 2 puff inhalation BID atorvastatin 80 mg tablet 80 mg PO BEDTIME Qty: 90 3RF Ozempic 0.25 mg or 0.5 mg (2 mg/3 mL) pen injector subcut Referrals: Jenny Vázquez MD [Primary Care Provider, Internal Medicine] Bishnu Cesar MD [Physician, Cardiology] Print Language: Maori
[2024-10-04 17:05] LABS: D Dimer High Sensitivity 187 NG/ML
[2024-10-04 18:52] LABS: Troponin-I High Sensitivity < 2.7 ng/L (<3.5-17.0)
--- OUTSIDE RECORDS SUMMARY | 2024-10-04 19:02 | XMS_ITS | Encounter Summary ---
Author Organization [employer] Address [address] [facility] [place] [address] [place] [address] Care Team Providers Care Motor Vehicle Examiner Name Role Phone Jenny Vázquez MD Primary Care Provider [phone] Encounter Details Date Type Department Care Team (Late st Contact Info) Description 10/31/2022 Abstract [facility] MEDICINE [address] [place] [address] Jenny Vázquez MD [address] [place] [address] Social History Tobacco Use Types Packs/Day Years [...] Description 10/11/2024 2:15 PM EDT Office Visit [facility] MEDICINE [address] [place] [address] Jenny Vázquez MD [address] [place] [address] 2025 1:00 PM EDT Office Visit [facility] ADULT DENTAL [address], [place] [id number] Marialuisa Parsons documented as of this encounter Procedures Procedure Name Priority Date/Time Associated Diagnosis Comments PAP/HPV Routine 10/02/2022 documented in this encounter Results * Pap Smear (10/02/2022) Pap Negative for intraephithelial lesion or malignancy Negative for intraephithelial lesion or malignancy, Other HPV Undetected Result [facility] HEALTH MAINTENANCE Final Result documented in this encounter Visit Diagnoses Not on filedocumented in this encounter Additional Health Concerns Assessment Noted Time PHQ-9 Depression Total Score: 0 10/22/19 23 1:17 PM EDT documented as of this encounter Care Teams Motor Vehicle Examiner Relationship Specialty Start Date End Date Jenny Vázquez MD [address] [place] [id number] PCP - General Family Medicine 04/13/18 documented as of this encounter
[2024-10-04 19:14] VITALS: BP 96/65; PULSE 84; RESP 24; TEMP 36.7; O2SAT 97
[2024-10-04 19:28] VITALS: BP 96/65; PULSE 84; RESP 24; TEMP 36.7; O2SAT 97
== END 2024-10-04 19:28 | disposition home or self-care (01) ==
PROVIDERS: Emergency Provider Emergency Medicine; PCP Family Medicine
DX: R07.89 Other chest pain (principal); I44.0 Atrioventricular block, first degree; I44.7 Left bundle-branch block, unspecified; E11.9 Type 2 diabetes mellitus without complications; I10 Essential (primary) hypertension; E78.5 Hyperlipidemia, unspecified; Z79.02 Long term (current) use of antithrombotics/antiplatelets; Z79.82 Long term (current) use of aspirin; Z79.899 Other long term (current) drug therapy
CPT/HCPCS: 36415; 80053; 83735; 83880; 84484; 85025; 85379; 85610; 93005; 99284; 99285

== ENCOUNTER → 2024-10-04 15:26 | Outpatient (BNV) | payer MEDICARE, SELFPAY | PROVIDERS: Emergency Provider Emergency Medicine; PCP Family Medicine; Visit Provider Internal Medicine | DX: I44.0 Atrioventricular block, first degree (principal); I44.7 Left bundle-branch block, unspecified | CPT/HCPCS: 93010 ==

== ENCOUNTER 2024-10-26 13:10 | Outpatient (AMB) | payer MEDICARE, SELFPAY ==
[2024-10-26 13:25] VITALS: BP 100/60; PULSE 80; BMI 31.6
--- NOTE | 2024-10-26 13:25 | MHC.OFFVIS ---
Vital Signs 10/26/24 13:25 Height 5 ft 3 in Weight 178 lb 9.191 oz BMI 31.6 BP 100/60 Blood Pressure Location Lt brachial Position Sitting Pulse 80 Pulse Source Pulse Oximeter Intake Visit Reasons: 6m follow up Relief Docking Master Required: Yes Relief Docking Master Services: Relief Docking Master Offered & Declined Accompanied by: Daughter Allergies peanut Allergy (Severe, Verified 10/04/24 15:28) angioedema lisinopril (LISINOPRIL) Allergy (Intermediate, Verified 10/04/24 15:28) RASH, cough zoster vaccine live (SHINGLES VACCINE) Allergy (Intermediate, Verified 10/04/24 15:28) LOCALIZED REDNESS, SWELLING, FEVER,COUGH latex (LATEX) Allergy (Unknown, Verified 10/04/24 15:28) RASH pineapple (PINEAPPLE) Allergy (Unknown, Verified 10/04/24 15:28) RASH strawberry (STRAWBERRY) Allergy (Unknown, Verified 10/04/24 15:28) RASH adhesive Allergy (Verified 10/04/24 15:28) Blister Medication List - Last Reconciled 10/26/24 by Bishnu Cesar MD albuterol sulfate 90 mcg/actuation (ProAir HFA) 2 puffs PO Q4H aspirin 81 mg PO DAILY atorvastatin 80 mg PO BEDTIME benzonatate 200 mg PO TID PRN 5 days budesonide-formoterol 160-4.5 mcg/actuation (Symbicort) 2 puffs inhalation BID fluticasone propionate 50 mcg/actuation sprays intranasal hydrocortisone 1% 1 appl NV TID isosorbide mononitrate ER 60 mg PO DAILY lidocaine 5% 1 appl topical PRN loratadine 10 mg PO BEDTIME metoclopramide HCl (Reglan) 5 mg PO QIDACHS metoprolol succinate ER 75 mg (1.5 x 50 mg) PO QAM nitroglycerin 0.4 mg sublingual Q5M PRN pantoprazole 40 mg PO QAM peg 3350-electrolytes 236-22.74-6.74 -5.86 gram (Golytely) 240 mL PO Q10M 1 day pregabalin (Lyrica) 50 mg PO BID semaglutide (Ozempic) mg subcut simethicone 180 mg PO QID 30 days Held on 08/03/24. Instructions: pt has too much sodium,potassium,mag sulfates 17.5-3.13-1.6 gram (Suprep Bowel Prep Kit) 480 mL orally; FOR COLONOSCOPY PREP tiotropium bromide 1.25 mcg/actuation (Spiriva Respimat) 2 puffs inhalation DAILY HPI Comments Details: Araseli returns for follow-up regarding coronary disease as well as PVCs. She has history of stents in the LAD, right coronary artery as well as OM1. All done within the last couple of years. She states that she was doing okay but over the last few weeks she is getting recurring chest pain. This can happen any time but more so with exertion than at rest. She has not been to the ER for this but there was no evidence of ACS and she was discharged home. She describes the discomfort in the center subtle area and the left chest and then goes into the shoulder and left arm. Otherwise, she has a history of PVCs and has been on flecainide but last year she underwent PVC ablation. She has been okay from that end. [facility] Medical History COVID-19 Palpitation Precordial chest pain Hemorrhoids Abdominal bloating Abdominal cramping Back pain Encounter for monitoring anti-arrhythmic therapy Fracture of proximal phalanx of right ring finger Syncope and collapse Acute non-ST elevation myocardial infarction (NSTEMI) Fracture of lesser tuberosity of right humerus Fracture of proximal end of right humerus Family history of ovarian cancer Early satiety COPD (chronic obstructive pulmonary disease) Cataract GUADALUPE (obstructive sleep apnea) Obesity (BMI 30-39.9) Hemorrhoids with complication GUADALUPE (obstructive sleep apnea) Hemorrhoids with complication NSVT (nonsustained ventricular tachycardia) PVC (premature ventricular contraction) Surgical History History of cardiac cath S/P ablation of ventricular arrhythmia S/P cardiac cath S/P cardiac catheterization History of coronary artery stent placement History of esophagogastroduodenoscopy (EGD) Hx of colonoscopy History of shoulder surgery (~04/29/18) History of lumbar laminectomy Family History Father Cardiovascular disease Mother Osteoarthritis Family/Other Ovarian cancer, Onset Age: 30 Social History Household Members: Spouse Alcohol intake: never Patient Tobacco Use Status: Never used Tobacco service: No Current occupational status: unemployed Current occupation: rt handed Review of Systems Const Denies weakness ENT Denies dizziness Card Denies chest pain, Denies chest pain with activity, Denies syncope, Denies rapid heart rate, Denies pedal edema, Denies edema, Denies leg edema, Denies lightheadedness, Denies palpitations, Denies dyspnea, Denies dyspnea on exertion and Denies orthopnea Resp Denies cough, Denies dyspnea and Denies dyspnea on exertion GI Denies hematochezia and Denies change in stool character Musc Denies abnormal gait, Denies muscle cramps, Denies muscle weakness, Denies numbness, Denies radiating pain into limb and Denies tingling Neuro Denies abnormal gait, Denies dizziness, Denies syncope, Denies numbness, Denies tingling and Denies weakness Endo Denies palpitations Physical Exam Vital Signs: Last Vital Signs Pulse 80 10/26/24 13:25 BP 100/60 10/26/24 13:25 BMI result Body Mass Index 31.6 Const General: comfortable and no acute distress Orientation/consciousness: patient oriented x3 HEENT Other: Unremarkable Head: Yes normal to inspection Neck Neck: Yes normal visual inspection Chest Chest palpation & inspection: normal inspection of the chest Resp Auscultation: clear to auscultation bilaterally Cardio Palpation: normal PMI Heart sounds: S1 normal heart sound present, S2 normal heart sound present, no gallops, no murmurs and no rubs GI Palpation (GI): Soft to palpation Back/Spine/Pelvis Other: unremarkable Skin General skin exam: no rashes or lesions noted Neuro General: patient oriented x3 Extrem General: Yes normal to inspection Psych Mental Status: mental status grossly normal Assessment & Plan Assessment & Plan (1) Atherosclerotic cardiovascular disease: Code(s): I25.10 - Atherosclerotic heart disease of [place] coronary artery without angina pectoris Category: Medical Plan: History of multivessel PCI including LAD, circumflex and RCA. As she has again consistently describing chest pain episodes more so with activity, we will repeat cardiac catheterization. For meds, aspirin, beta-blockers, long-acting nitrates and statins. Last LDL 56 mg/dL. (2) PVC (premature ventricular contraction): Code(s): I49.3 - Ventricular premature depolarization Category: Medical Plan: Status post PVC ablation in 2023. Remains on beta-blockers. In the last Holter monitor, PVC burden is only 1.2%. (3) LBBB (left bundle branch block): Code(s): I44.7 - Left bundle-branch block, unspecified Category: Medical Plan: Recent EKGs have shown left bundle-branch block pattern. Willl need to be followed for any progressive conduction system disease. (4) GUADALUPE (obstructive sleep apnea): Code(s): G47.33 - Obstructive sleep apnea (adult) (pediatric) Category: Medical Plan: Sleep study with moderately severe obstructive sleep apnea. Continue CPAP. Plan Discussed with daughter who came for the appointment. Orders: Orders Cardiac Cath LT w PCI Today I25.10 - Atherosclerotic heart disease of [place] coronary artery without angina pectoris Basic Metabolic Panel Today I25.10 - Atherosclerotic heart disease of [place] coronary artery without angina pectoris Complete Blood Count no Diff Today I25.10 - Atherosclerotic heart disease of [place] coronary artery without angina pectoris Prothrombin Time INR Today I25.10 - Atherosclerotic heart disease of [place] coronary artery without angina pectoris CA echo transthoracic complete Today I25.10 - Atherosclerotic heart disease of [place] coronary artery without angina pectoris Coding Level of Care Code Est Pt Level 4 (67150) Complex EM visit Add On G2211 Diagnoses Atherosclerotic cardiovascular disease I25.10 PVC (premature ventricular contraction) I49.3 LBBB (left bundle branch block) I44.7 GUADALUPE (obstructive sleep apnea) G47.33
--- OUTSIDE RECORDS SUMMARY | 2024-10-26 14:00 | XMS_ITS | Encounter Summary ---
Author Organization [employer] Address [address] [place] [address] [address] [place] [address] Care Team Providers Care Oil Painter Name Role Phone Jenny Vázquez MD Primary Care Provider [phone] Encounter Details Date Type Department Care Team (Late st Contact Info) Description 10/31/2022 Abstract [facility] MEDICINE [address] [place] [address] Jenny Vázquez MD [address] [place] [address] Social History Tobacco Use Types Packs/Day Years [...] Description 2025 1:00 PM EDT Office Visit [facility] ADULT DENTAL [address] [place] [address] Marialuisa Parsons documented as of this encounter Procedures Procedure Name Priority Date/Time Associated Diagnosis Comments PAP/HPV Routine 10/02/2022 documented in this encounter Results * Pap Smear (10/02/2022) Pap Negative for intraephithelial lesion or malignancy Negative for intraephithelial lesion or malignancy, Other HPV Undetected Result [facility] Pcp HEALTH MAINTENANCE Final Result documented in this encounter Visit Diagnoses Not on filedocumented in this encounter Additional Health Concerns Assessment Noted Time PHQ-9 Depression Total Score: 0 10/22/19 23 1:17 PM EDT documented as of this encounter Care Teams Oil Painter Relationship Specialty Start Date End Date Jenny Vázquez MD [address] [place] [address] PCP - General Family Medicine 04/13/18 documented as of this encounter
== END 2024-10-26 14:23 | disposition home or self-care (01) ==
LOC: HO.HCS 13:11
PROVIDERS: PCP Family Medicine; Visit Provider Internal Medicine
DX: I25.10 Atherosclerotic heart disease of native coronary artery without angina pectoris (principal); I49.3 Ventricular premature depolarization; I44.7 Left bundle-branch block, unspecified; G47.33 Obstructive sleep apnea (adult) (pediatric)
CPT/HCPCS: 99214; G2211

== ENCOUNTER → 2024-10-26 13:10 | Outpatient (REF) | payer MEDICARE, SELFPAY ==
[2024-10-26 15:40] LABS: Hematocrit 40.8 % (37.0-47.0); Hemoglobin 12.8 g/dl (12.0-16.0); Mean Corpuscular HGB Conc 31.4 g/dl (31.0-35.0); Mean Corpuscular Hemoglobin 27.2 pg (27.0-33.0); Mean Corpuscular Volume 86.8 fL (80.0-98.0); NRBC Abs Auto 0.000 X10*3/uL (0.0-0.012); NRBC Pct Auto 0.0 /100WBC (0.0-0.2); Platelet Count 260 X10*3/uL (160-400); Red Blood Count 4.70 X10*6/uL (4.20-5.50); White Blood Count 11.1 X10*3/uL (4.8-10.8)
[2024-10-26 15:51] LABS: INTERNATIONAL NORM RATIO 1.0 (0.9-1.1); Prothrombin Time 11.9 SEC (10.9-12.4)
[2024-10-26 16:00] LABS: Anion Gap 9 (12-20); Blood Urea Nitrogen 17 mg/dL (9-16); Calcium 8.9 mg/dL (8.4-10.2); Carbon Dioxide 29 mmol/L (22-29); Chloride 108 mmol/L (96-108); Estimated Glomerular Filt Rate 54; Potassium 4.4 mmol/L (3.3-5.1); Sodium 142 mmol/L (135-145)
== END ==
LOC: HO.CARD 13:10
PROVIDERS: Absent Provider Internal Medicine; PCP Family Medicine; Visit Provider Internal Medicine
DX: I25.10 Atherosclerotic heart disease of native coronary artery without angina pectoris (principal); I44.7 Left bundle-branch block, unspecified; I49.3 Ventricular premature depolarization; G47.33 Obstructive sleep apnea (adult) (pediatric); Z79.82 Long term (current) use of aspirin; Z79.51 Long term (current) use of inhaled steroids; Z79.899 Other long term (current) drug therapy; Z95.5 Presence of coronary angioplasty implant and graft
CPT/HCPCS: 36415; 80048; 85027; 85610; 97803; 99212

== ENCOUNTER 2024-10-26 14:06 | Outpatient (AMB) | payer MEDICARE, OTHER, SELFPAY ==
[2024-10-26 14:19] VITALS: BMI 31.7
--- NOTE | 2024-10-26 14:19 | A.OFFVIS_ITS ---
VS Expanded 10/26/24 14:19 Height 5 ft 3 in Weight 178 lb 12.718 oz BMI 31.7 Intake Visit Reasons: T2DM Allergies peanut Allergy (Severe, Verified 10/04/24 15:28) angioedema lisinopril (LISINOPRIL) Allergy (Intermediate, Verified 10/04/24 15:28) RASH, cough zoster vaccine live (SHINGLES VACCINE) Allergy (Intermediate, Verified 10/04/24 15:28) LOCALIZED REDNESS, SWELLING, FEVER,COUGH latex (LATEX) Allergy (Unknown, Verified 10/04/24 15:28) RASH pineapple (PINEAPPLE) Allergy (Unknown, Verified 10/04/24 15:28) RASH strawberry (STRAWBERRY) Allergy (Unknown, Verified 10/04/24 15:28) RASH adhesive Allergy (Verified 10/04/24 15:28) Blister Nutrition Presentation Details: Pt presents for MNT f/u for T2DM Pt reports having good appetite reports having 2 meals/day (from meals on wheels) and eats 100 % was participating in daily walks (reducing now due to weather ) making burgers at home (choosing turkey ) fruits: (cherries, grapes, prunes ) 2-3/day fish: 1x/wk yogurt : 1/d monitoring fasting BG ranging from 112-122 mg/dl BS Monitoring Most Recent Diabetes Results: Creatinine, (0.5-1.4) 1.02 mg/dL 10/26/24 BUN, (9-16) 17 mg/dL H 10/26/24 Sodium, (135-145) 142 mmol/L 10/26/24 Potassium, (3.3-5.1) 4.4 mmol/L 10/26/24 Chloride, (96-108) 108 mmol/L 10/26/24 Carbon Dioxide, (22-29) 29 mmol/L 10/26/24 Calcium, (8.4-10.2) 8.9 mg/dL 10/26/24 AST, (5-31) 21 U/L 10/04/24 ALT, (0-31) 15 U/L 10/04/24 Total Protein, (6.5-8.0) 6.1 g/dL L 10/04/24 Albumin, (3.5-5.0) 3.8 g/dL 10/04/24 [facility] Medical History COVID-19 Palpitation Precordial chest pain Hemorrhoids Abdominal bloating Abdominal cramping Back pain Encounter for monitoring anti-arrhythmic therapy Fracture of proximal phalanx of right ring finger Syncope and collapse Acute non-ST elevation myocardial infarction (NSTEMI) Fracture of lesser tuberosity of right humerus Fracture of proximal end of right humerus Family history of ovarian cancer Early satiety COPD (chronic obstructive pulmonary disease) Cataract GUADALUPE (obstructive sleep apnea) Obesity (BMI 30-39.9) Hemorrhoids with complication GUADALUPE (obstructive sleep apnea) Hemorrhoids with complication NSVT (nonsustained ventricular tachycardia) PVC (premature ventricular contraction) Surgical History History of cardiac cath S/P ablation of ventricular arrhythmia S/P cardiac cath S/P cardiac catheterization History of coronary artery stent placement History of esophagogastroduodenoscopy (EGD) Hx of colonoscopy History of shoulder surgery (~04/29/18) History of lumbar laminectomy Family History Father Cardiovascular disease Mother Osteoarthritis Family/Other Ovarian cancer, Onset Age: 30 Social History Household Members: Spouse Alcohol intake: never Patient Tobacco Use Status: Never used Tobacco service: No Current occupational status: unemployed Current occupation: rt handed Assessment & Plan Assessment & Plan (1) T2DM (type 2 diabetes mellitus): Code(s): E11.9 - Type 2 diabetes mellitus without complications Category: Medical Plan: Wt: 86 Kg ( 07/05 ), 84kg (08/05), 81 kg (11/04) Est kcal needs as per MSJ: 1600 (40% carb, 30% protein/fat) Est fluid needs as per 25-30 ml/d: 2400 Est prot per day as per 1 g/kg bw: 80 Recommend fiber intake : 8-10 g per day and gradually increase to 25-28 g per day for women and 35-38 g for men or as tolerated Recommend sodium intake per day : less than 1500 mg less than 2000 mg Educated patient on: ( R = reviewed V = verbalizes understanding N/R = needs review N/A = not applicable * Food sources of carbohydrate, adequate serving sizes and its role in various health conditions: R * Differences between complex carbohydrates a simple carbohydrates, role of fiber in diet: R,V * Lean protein sources of foods: R * Differences between types of fats and role in diet (mono on saturated fat fatty acids, saturated fatty acids, trans fats): R * Food sources of sodium in salt and healthy modifications for heart health in kidney health: R * Vitamins and minerals: R * Healthy plate method concept: R V * Physical activity: Benefits a precaution: R V * Hypoglycemia protocol (rule of 15): R * Dietary prevention of Hyperglycemia: R Patient Instructions: Continue working on following healthy plate method Choose herbs and spices to flavor foods with less salt /sodium Coding Level of Care Code Nutr Indiv Subseq (05703) Diagnoses T2DM (type 2 diabetes mellitus) E11.9 Time Spent (min) 30
== END 2024-10-26 14:47 | disposition home or self-care (01) ==
LOC: HO.ENCR 14:07
PROVIDERS: PCP Family Medicine; Visit Provider Dietitian, Registered
DX: E11.9 Type 2 diabetes mellitus without complications (principal)

== ENCOUNTER → 2024-10-27 09:54 | Outpatient (REF) | payer MEDICARE, SELFPAY ==
--- NOTE | 2024-10-27 09:56 | CA_ITS ---
Transthoracic Echocardiogram Patient (Last, First, Middle): Araseli Leary, Gender: Female Date of : 1955 Age: 69 Procedure Date: 10/27/2024 Procedure Type: Transthoracic Echocardiogram Location: OP Height: 160. cm Weight: 81.65 kg BSA: 1.85 m2 Heart Rate: 71 bpm BP: 100 / 65 mmHg Drag Seiner: YIFAN Referring MD: Bishnu Cesar MD Symptoms: I25.10 - Atherosclerotic heart disease of [place] coronary artery without... Study Quality: Adequate ECG Rhythm: Sinus Conclusions: - The left ventricular systolic function is low normal. The visually estimated ejection fraction is between 50-55%. - The basal inferolateral segment is akinetic. - No obvious valvular pathology seen on this study. Findings Left Ventricle Normal left ventricular cavity size. There is mildly increased left ventricular wall thickness. The left ventricular systolic function is low normal. The visually estimated ejection fraction is between 50-55%. There is paradoxical septal motion consistent with a left bundle branch block. Wall Motion Rest Echo Findings The basal inferolateral segment is akinetic. Right Ventricle Normal right ventricular cavity size and systolic function. Atria Both atria are normal in size. Aortic Valve There is a normal trileaflet aortic valve. There is no aortic valve stenosis. There is no aortic valve regurgitation. Mitral Valve The mitral valve appears normal. There is mild mitral valve regurgitation. There is no mitral valve stenosis. Pulmonic Valve The pulmonic valve is likely normal. Tricuspid Valve There is trace tricuspid valve regurgitation. There is no evidence of pulmonary hypertension. Great Vessels The asc aorta and aortic arch are normal in size. Venous The inferior vena cava is normal in size and collapses greater than 50% with inspiration. Pericardium/Pleural There is no evidence of pericardial effusion. Prior Study Comparison No significant change compared to prior study dated: 10/13/2023. Recommendations, Care & Conclusions No obvious valvular pathology seen on this study. Measurements 2D Linear Measurements IVSd: 1.14 0.6-0.9/0.6-1.0 cm LVIDd: 3.66 3.9-5.3/4.2-5.9 cm LVIDd Index: 1.98 2.4-3.2/2.2-3.1 cm/m2 LVIDs: 2.91 2.0-3.6 cm LVPWd: 1.20 0.7-1.1 cm LA Diam: 4.00 2.7-3.8/3.0-4.0 cm LAIDs Index: 2.16 1.5-2.3 cm/m2 LV Mass: 173.65 67-162/88-224 g LV Mass Index: 93.87 43-95/49-115 g/m2 LVOT Diam: 2.00 3.0+(-)1.3 cm 2D Systolic Function EF 4C: 54.30 >55% EF 2C: 65.80 >55% EF BiP: 60.10 >55% Mitral Valve MV Pk E: 0.57 MV PK A: 0.96 MV Decel Time: 91.00 E/A: 0.60 E'Lateral: 7.83 E'Medial: 4.79 E/E' Med: 11.90 E/E' Lat: 7.30 PHT: 27.00 MVA PHT: 8.15 Decel [place]: 6.25 Aortic Valve AoV Pk Malvin: 1.32 AoV Mn Malvin: 0.91 AoV VTI: 0.25 AoV Pk Grad: 7.00 Aov Mn Grad: 4.00 EMMA Cont.VTI: 1.70 LVOT LVOT Pk Malvin: 0.69 LVOT Mn Malvin: 0.48 LVOT VTI: 0.14 LVOT Pk Grad: 2.00 LVOT Mn Grad: 1.00 LVOT Diam: 2.00 LVOT Area: 3.14 Diastolic Function MV Pk E: 0.57 MV Pk A: 0.96 E/A: 0.60 E'Medial: 4.79 E/E' Med: 11.90 E' Laterial: 7.83 E/E' Lat: 7.30 Right Ventricle TAPSE (mm): 22.40 TVS' Malvin: 10.00 Tricuspid Valve TR Pk Malvin: 1.81 TR Pk Grad: 13.00 RA Press: 3.00 RVSP: 16.00 Great Vessels Aorta Sinus of Valsalva: 3.00 2.0-3.5 cm Ao Asc: 2.90 2.1-3.4 cm Ao Arch: 3.00 Pulmonary Valve PV Pk Malvin: 0.86 Peak PV Grad: 3.00 Updated in Other Vendor System with Status of Final Bishnu Cesar MD electronically signed on 10/29/2024 11:08:38 AM with status of Final
--- OUTSIDE RECORDS SUMMARY | 2024-10-27 10:20 | XMS_ITS | Encounter Summary ---
Author Organization [employer] Address [address] [place] [address] [address] [place] [address] Care Team Providers Care Inventory Assistant Name Role Phone Jenny Vázquez MD Primary Care Provider [phone] Encounter Details Date Type Department Care Team (Late st Contact Info) Description 10/31/2022 Abstract [facility] MEDICINE [address] [place] [address] Jenny Vázquez MD [address] [place] [address] Social History Tobacco Use Types Packs/Day Years [...] 1:00 PM EDT Office Visit [facility] ADULT DENTAL [address] [place] [address] Marialuisa Parsons documented as of this encounter Procedures Procedure Name Priority Date/Time Associated Diagnosis Comments PAP/HPV Routine 10/02/2022 documented in this encounter Results * Pap Smear (10/02/2022) Pap Negative for intraephithelial lesion or malignancy Negative for intraephithelial lesion or malignancy, Other HPV Undetected Result [facility] Unassigned Pcp HEALTH MAINTENANCE Final Result documented in this encounter Visit Diagnoses Not on filedocumented in this encounter Additional Health Concerns Assessment Noted Time PHQ-9 Depression Total Score: 0 10/22/19 23 1:17 PM EDT documented as of this encounter Care Teams Inventory Assistant Relationship Specialty Start Date End Date Jenny Vázquez MD [address] [place] [address] PCP - General Family Medicine 04/13/18 documented as of this encounter
== END ==
LOC: HO.CARD 09:54
PROVIDERS: PCP Family Medicine; Visit Provider Internal Medicine
DX: I25.10 Atherosclerotic heart disease of native coronary artery without angina pectoris (principal)
CPT/HCPCS: 93306

== ENCOUNTER → 2024-10-27 09:56 | Outpatient (BNV) | payer MEDICARE, SELFPAY | PROVIDERS: PCP Family Medicine; Visit Provider Internal Medicine | DX: I34.0 Nonrheumatic mitral (valve) insufficiency (principal); I44.7 Left bundle-branch block, unspecified; I25.10 Atherosclerotic heart disease of native coronary artery without angina pectoris | CPT/HCPCS: 93306 ==

== ENCOUNTER → 2024-11-08 23:59 | Outpatient (BNV) | payer MEDICARE, SELFPAY | PROVIDERS: PCP Family Medicine; Visit Provider Internal Medicine Cardiovascular Disease | DX: I20.89 Other forms of angina pectoris (principal) | CPT/HCPCS: 93458; 99152 ==

== ENCOUNTER 2024-11-16 14:30 | Outpatient (AMB) | payer MEDICARE, SELFPAY ==
[2024-11-16 14:52] VITALS: BMI 31.5
--- NOTE | 2024-11-16 14:52 | A.OFFVIS_ITS ---
Vital Signs 11/16/24 14:52 Height 5 ft 3 in Weight 178 lb BMI 31.5 Intake Visit Reasons: OV-Left wrist ganglion cyst Intake Note: Araseli 69 yr old right hand dominant female presents today with her daughter Amie for her left wrist ganglion cyst. States he was scheduled to have surgery with DR Mick triplett in 2022 however she had to canceled due to other health issues. States her cyst has increased in size and is having pain in her thumb due to catching and locking for the last year. Denies numbness or tingling in fingers. Patient would like to her cyst removed. Allergies peanut Allergy (Severe, Verified 11/16/24 14:55) angioedema lisinopril (LISINOPRIL) Allergy (Intermediate, Verified 11/16/24 14:55) RASH, cough zoster vaccine live (SHINGLES VACCINE) Allergy (Intermediate, Verified 11/16/24 14:55) LOCALIZED REDNESS, SWELLING, FEVER,COUGH latex (LATEX) Allergy (Unknown, Verified 11/16/24 14:55) RASH pineapple (PINEAPPLE) Allergy (Unknown, Verified 11/16/24 14:55) RASH strawberry (STRAWBERRY) Allergy (Unknown, Verified 11/16/24 14:55) RASH adhesive Allergy (Verified 11/16/24 14:55) Blister HPI HPI OV-Left wrist ganglion cyst: Details: The patient is a 69-year-old [id number] woman who is seen today with her daughter for her left volar wrist ganglion in pain about the radial aspect of her left hand. They also report that her thumb will ?on its own? flex at the MCP joint and feel like it gets stuck in that position. In the last 2 years she has had 5 cardiac stents. It sounds like last week they developed a clot in 1 of the stents which was then cleaned out by Interventional Cardiology. [facility] Medical History COVID-19 Palpitation Precordial chest pain Hemorrhoids Abdominal bloating Abdominal cramping Back pain Encounter for monitoring anti-arrhythmic therapy Fracture of proximal phalanx of right ring finger Syncope and collapse Acute non-ST elevation myocardial infarction (NSTEMI) Fracture of lesser tuberosity of right humerus Fracture of proximal end of right humerus Family history of ovarian cancer Early satiety COPD (chronic obstructive pulmonary disease) Cataract GUADALUPE (obstructive sleep apnea) Obesity (BMI 30-39.9) Hemorrhoids with complication GUADALUPE (obstructive sleep apnea) Hemorrhoids with complication NSVT (nonsustained ventricular tachycardia) PVC (premature ventricular contraction) Surgical History History of cardiac cath S/P ablation of ventricular arrhythmia S/P cardiac cath S/P cardiac catheterization History of coronary artery stent placement History of esophagogastroduodenoscopy (EGD) Hx of colonoscopy History of shoulder surgery (~04/29/18) History of lumbar laminectomy Family History Father Cardiovascular disease Mother Osteoarthritis Family/Other Ovarian cancer, Onset Age: 30 Social History Household Members: Spouse Alcohol intake: never Patient Tobacco Use Status: Never used Tobacco service: No Current occupational status: unemployed Current occupation: rt handed Physical Exam Vital Signs: BMI result Body Mass Index 31.5 Extrem Other: The patient was alert oriented and in no acute distress. Sensation was grossly intact and cap refill brisk to the right hand. She has a right volar wrist ganglion which measures about 1.8 cm in diameter. It is soft and nontender. I can palpate the radial artery both proximal and distal to the ganglion. She can make a fist and fully extend all of her digits. I saw no locking or catching. Specifically I saw no locking or catching at the thumb IP joint with no tenderness in the thumb A1 ivania. In talking with her, they say that she gets spontaneous flexion at the MCP joint where the thumb then gets stuck in a flexed MCP joint position with the IP joint in extension. This was not reproducible in clinic today. This is not a trigger thumb, but may be due to some kind of spasm. She was actually most tender to palpation about the basal joint of the right thumb. She had a positive CMC grind and positive shoulder sign. Office Procedures AMB Fracture Care Details: No fracture, injection Fracture Billing Code: Fracture Billing Code Assessment & Plan Assessment & Plan (1) Arthritis of carpometacarpal (CMC) joint of left thumb: Code(s): M18.12 - Unilateral primary osteoarthritis of first carpometacarpal joint, left hand Category: Medical (2) Ganglion cyst of volar aspect of right wrist: Code(s): M67.431 - Ganglion, right wrist Category: Medical Plan Assessment and plan: 1. Right basal joint osteoarthritis This appears to be her most symptomatic complaint I educated her about this condition We discussed operative and non operative treatment options and also the use of steroid injections and she wishes to proceed with an injection today. We also fitted her with a new neoprene thumb spica splint I talked about the importance of activity modification Injection #1 : The risks and benefits of a steroid injection including but not limited to risk of damage to blood vessels, nerve, tendon, infection, skin bleaching, persistent or worsening pain, and failure to improve symptoms were discussed with the patient and they wish to proceed with the steroid injection. Once consent was obtained the skin over the dorsum of the right basal joint was sterilely prepped. The joint was then injected with a combination of 1 mL of (40 mg/ml} Depo-Medrol and 0.25 % plain Marcaine. The patient appears to have tolerated the procedure well and with no complications. She had excellent resolution of her symptoms while in clinic today She knows that she may not have another injection for at least 4 months. 2. Right volar wrist ganglion Cyst about 1.8 cm in diameter, soft and nontender I educated her about the volar wrist ganglion I explained that this is likely not what is feeling painful, but we could take it out if it is bothering her . I also explained that this could come back even if it is removed. She would like to treat this conservatively for now Please note that she has now had cardiac stenting x5. The last cardiac stent was placed just last week. The patient and her daughter seen think that she is not taking any anticoagulants. Coding Level of Care Code Est Pt Level 5 (21885) Diagnoses Arthritis of carpometacarpal (CMC) joint of left thumb M18.12 Ganglion cyst of volar aspect of right wrist M67.431 CPT Codes Fracture Care - Fracture Billing Code: Fracture Billing Code ([id number])
--- OUTSIDE RECORDS SUMMARY | 2024-11-16 14:57 | XMS_ITS | Encounter Summary ---
Author Organization [employer] Address [address] [place] [address] [address] [place] [address] Care Team Providers Care Knot Borer Name Role Phone Jenny Vázquez MD Primary Care Provider [phone] Encounter Details Date Type Department Care Team (Late st Contact Info) Description 10/31/2022 Abstract [facility] MEDICINE [address] [place] [address] Jenny Vázquez MD [address] [place] [address] Social History Tobacco Use Types Packs/Day Years [...] Description 2025 1:00 PM EDT Office Visit [facility] ADULT DENTAL [address] [place] [address] Marialuisa Parsons documented as of this encounter [...] documented as of this encounter Care Teams Knot Borer Relationship Specialty Start Date End Date Jenny Vázquez MD [address] [place] [address] PCP - General Family Medicine 04/13/18 documented as of this encounter
== END 2024-11-16 15:54 | disposition home or self-care (01) ==
LOC: HO.HOS 14:31
PROVIDERS: PCP Family Medicine; Visit Provider Orthopaedic Surgery
DX: M18.12 Unilateral primary osteoarthritis of first carpometacarpal joint, left hand (principal); M67.431 Ganglion, right wrist
CPT/HCPCS: 20600; 99214

== ENCOUNTER → 2024-11-16 14:30 | Outpatient (BNVA) | payer MEDICARE, SELFPAY | PROVIDERS: PCP Family Medicine; Visit Provider Orthopaedic Surgery | DX: M18.12 Unilateral primary osteoarthritis of first carpometacarpal joint, left hand (principal); M67.431 Ganglion, right wrist | CPT/HCPCS: 20600; 99212; J1010; J2003 ==

== ENCOUNTER 2024-11-23 13:23 | Outpatient (REF) | payer MEDICARE, SELFPAY ==
--- OUTSIDE RECORDS SUMMARY | 2024-11-23 13:50 | XMS_ITS | Encounter Summary ---
Author Organization [employer] Address [address] [place] [address] [address] [place] [address] Care Team Providers Care Architectural Practice Manager Name Role Phone Jenny Vázquez MD Primary Care Provider [phone] Encounter Details Date Type Department Care Team (Late st Contact Info) Description 10/31/2022 Abstract [facility] MEDICINE [address] [place] [address] Jenny Vázquez MD [address] [place] [address] Social History Tobacco Use Types Packs/Day Years [...] Description 2025 1:00 PM EDT Office Visit [facility] ADULT DENTAL [address] [place] [address] Marialuisa Parsons documented as of this encounter Procedures Procedure Name Priority Date/Time Associated Diagnosis Comments PAP/HPV Routine 10/02/2022 documented in this encounter Results * Pap Smear (10/02/2022) Pap Negative for intraephithelial lesion or malignancy Negative for intraephithelial lesion or malignancy, Other HPV Undetected Result [facility] Unassigned Pcp HEALTH MAINTENANCE Final Result documented in this encounter Visit Diagnoses Not on filedocumented in this encounter Additional Health Concerns Assessment Noted Time PHQ-9 Depression Total Score: 0 10/22/19 23 1:17 PM EDT documented as of this encounter Care Teams Architectural Practice Manager Relationship Specialty Start Date End Date Jenny Vázquez MD [address] [place] [address] PCP - General Family Medicine 04/13/18 documented as of this encounter
[2024-11-23 17:17] LABS: Alanine Aminotransferase 17 U/L (0-31); Albumin Level 4.0 g/dL (3.5-5.0); Alkaline Phosphatase 116 U/L (39-117); Anion Gap 11 (12-20); Aspartate Amino Transferase 34 U/L (5-31); Blood Urea Nitrogen 22 mg/dL (9-16); Calcium 9.1 mg/dL (8.4-10.2); Carbon Dioxide 25 mmol/L (22-29); Chloride 109 mmol/L (96-108); Cholesterol 130 mg/dL (<200); Estimated Glomerular Filt Rate > 60; HDL Cholesterol 47 mg/dL (>40); Potassium 4.3 mmol/L (3.3-5.1); Sodium 141 mmol/L (135-145); Total Protein 6.4 g/dL (6.5-8.0); Triglycerides 169 mg/dL (<150)
[2024-11-23 17:24] LABS: Free T4 (Free Thyroxine) 1.07 ng/dL (0.71-1.85); Thyroid Stimulating Hormone 1.70 uIU/mL (0.32-4.0)
== END 2024-11-23 13:24 | disposition home or self-care (01) ==
LOC: HO.HHCL 13:23
PROVIDERS: PCP Family Medicine; Visit Provider Registered Nurse Psychiatric/Mental Health
DX: Z13.220 Encounter for screening for lipoid disorders (principal); Z79.899 Other long term (current) drug therapy
CPT/HCPCS: 36415; 80053; 80061; 82248; 84439; 84443

== ENCOUNTER 2024-11-24 13:22 | Outpatient (AMB) | payer MEDICARE, SELFPAY ==
--- NOTE | 2024-11-24 13:25 | A.OFFVIS_ITS ---
Vital Signs 11/24/24 13:27 Height 5 ft 3 in Weight 182 lb 8.684 oz BMI 32.3 BP 120/70 Blood Pressure Location Rt brachial Position Sitting Pulse 75 Pulse Source Pulse Oximeter Intake Visit Reasons: 2 wk s/p cath Intake Note: 2wk s/p cath Folder Operator Required: No Accompanied by: Significant Other Allergies peanut Allergy (Severe, Verified 11/16/24 14:55) angioedema lisinopril (LISINOPRIL) Allergy (Intermediate, Verified 11/16/24 14:55) RASH, cough zoster vaccine live (SHINGLES VACCINE) Allergy (Intermediate, Verified 11/16/24 14:55) LOCALIZED REDNESS, SWELLING, FEVER,COUGH latex (LATEX) Allergy (Unknown, Verified 11/16/24 14:55) RASH pineapple (PINEAPPLE) Allergy (Unknown, Verified 11/16/24 14:55) RASH strawberry (STRAWBERRY) Allergy (Unknown, Verified 11/16/24 14:55) RASH adhesive Allergy (Verified 11/16/24 14:55) Blister Medication List - Last Reconciled 11/24/24 by Koko Parikh NP albuterol sulfate 90 mcg/actuation (ProAir HFA) 2 puffs PO Q4H aspirin 81 mg PO DAILY atorvastatin 80 mg PO BEDTIME benzonatate 200 mg PO TID PRN 5 days budesonide-formoterol 160-4.5 mcg/actuation (Symbicort) 2 puffs inhalation BID fluticasone propionate 50 mcg/actuation sprays intranasal hydrocortisone 1% 1 appl NV TID isosorbide mononitrate ER 60 mg PO DAILY lidocaine 5% 1 appl topical PRN loratadine 10 mg PO BEDTIME metoclopramide HCl (Reglan) 5 mg PO QIDACHS metoprolol succinate ER 75 mg (1.5 x 50 mg) PO QAM nitroglycerin 0.4 mg sublingual Q5M PRN pantoprazole 40 mg PO QAM peg 3350-electrolytes 236-22.74-6.74 -5.86 gram (Golytely) 240 mL PO Q10M 1 day pregabalin (Lyrica) 50 mg PO BID semaglutide (Ozempic) mg subcut simethicone 180 mg PO QID 30 days Held on 08/03/24. Instructions: pt has too much sodium,potassium,mag sulfates 17.5-3.13-1.6 gram (Suprep Bowel Prep Kit) 480 mL orally; FOR COLONOSCOPY PREP tiotropium bromide 1.25 mcg/actuation (Spiriva Respimat) 2 puffs inhalation DAILY HPI Comments Details: This is a 69-year-old female patient coming in for a follow-up visit status post cardiac catheterization, accompanied by her . Patient with a history of coronary artery disease with prior stents in the LAD,RCA and OM1, history of PVCs ablation, left bundle branch block, and sleep apnea. Patient had previously reported chest pain with exertion that radiated into her left arm for which patient underwent a cardiac catheterization with Dr. Fuentes at [facility]. Today, patient reports feeling well overall and denies any cardiac symptoms of exertional chest pain, shortness of breath, palpitations, dizziness, orthopnea, PND, leg edema, presyncope or syncope. Patient states she is compliant with all her medications. [facility] Medical History COVID-19 Palpitation Precordial chest pain Hemorrhoids Abdominal bloating Abdominal cramping Back pain Encounter for monitoring anti-arrhythmic therapy Fracture of proximal phalanx of right ring finger Syncope and collapse Acute non-ST elevation myocardial infarction (NSTEMI) Fracture of lesser tuberosity of right humerus Fracture of proximal end of right humerus Family history of ovarian cancer Early satiety COPD (chronic obstructive pulmonary disease) Cataract GUADALUPE (obstructive sleep apnea) Obesity (BMI 30-39.9) Hemorrhoids with complication GUADALUPE (obstructive sleep apnea) Hemorrhoids with complication NSVT (nonsustained ventricular tachycardia) PVC (premature ventricular contraction) Surgical History History of cardiac cath S/P ablation of ventricular arrhythmia S/P cardiac cath S/P cardiac catheterization History of coronary artery stent placement History of esophagogastroduodenoscopy (EGD) Hx of colonoscopy History of shoulder surgery (~04/29/18) History of lumbar laminectomy Family History Father Cardiovascular disease Mother Osteoarthritis Family/Other Ovarian cancer, Onset Age: 30 Social History Household Members: Spouse Alcohol intake: never Patient Tobacco Use Status: Never used Tobacco service: No Current occupational status: unemployed Current occupation: rt handed Review of Systems Const Denies chills, Denies fatigue, Denies fever(s), Denies frequent falls, Denies weakness, Denies weight gain and Denies weight loss ENT Denies dizziness Card Denies chest pain, Denies leg edema, Denies lightheadedness, Denies palpitations, Denies dyspnea and Denies dyspnea on exertion Resp Denies cough, Denies dyspnea and Denies dyspnea on exertion GI Denies hematochezia Musc Denies abnormal gait, Denies muscle weakness, Denies numbness, Denies radiating pain into limb and Denies tingling Neuro Denies abnormal gait, Denies dizziness, Denies frequent falls, Denies numbness, Denies tingling and Denies weakness Endo Denies fatigue and Denies palpitations Physical Exam Vital Signs: Last Vital Signs Pulse 75 11/24/24 13:27 BP 120/70 11/24/24 13:27 BMI result Body Mass Index 32.3 Const General: cooperative, healthy appearing, comfortable and no acute distress Orientation/consciousness: patient oriented x3 HEENT Head: Yes normal to inspection Neck Neck: Yes normal visual inspection, Yes trachea midline and Yes supple Chest Chest palpation & inspection: normal inspection of the chest Resp Effort & Inspection: normal respiratory effort Auscultation: clear to auscultation bilaterally, no crackles, no rales, no rhonchi and no wheezes Cardio Jugular venous distension: no JVD Palpation: normal PMI Rate: regular rate Rhythm: regular rhythm Heart sounds: S1 normal heart sound present, S2 normal heart sound present, no click, no gallops, no murmurs and no rubs Peripheral pulses: Peripheral pulses 2+ throughout GI Inspection: Yes normal to inspection Palpation (GI): Soft to palpation Auscultation: normal bowel sounds Skin General skin exam: no rashes or lesions noted Neuro General: patient oriented x3 Extrem General: Yes normal to inspection, No no pedal edema and No calf tenderness Psych Appearance: grossly normal Mental Status: mental status grossly normal Speech and movement: Normal speech and movement present Assessment & Plan Assessment & Plan (1) Status post cardiac catheterization: Code(s): Z98.890 - Other specified postprocedural states Plan: History of PCI in the LAD, RCA, and OM1 in 2022. Recently, with reports of exertional chest pain, patient underwent another cardiac catheterization with Dr. Fuentes at [facility] on 11/08/2024. This revealed patent stents in the proximal to distal RCA, lad and circumflex. With 40-50% stenosis in the ostial circumflex, unchanged from her previous cardiac catheterization. Clinically stable and without any cardiac symptoms. Continue lifelong has been therapy. Continue high-dose statin therapy with an LDL goal less than 70. Recent LDL at 50. Continue isosorbide and metoprolol therapy. Right wrist catheterization site is well healed. We will refer patient out to cardiac rehab. (2) Atherosclerotic cardiovascular disease: Code(s): I25.10 - Atherosclerotic heart disease of [place] coronary artery without angina pectoris Category: Medical Plan: As above. (3) Stented coronary artery: Code(s): Z95.5 - Presence of coronary angioplasty implant and graft Category: Surgical Plan: As above. (4) LBBB (left bundle branch block): Code(s): I44.7 - Left bundle-branch block, unspecified Category: Medical Plan: History of left bundle branch block. Clinically stable. Continue to monitor. (5) PVC (premature ventricular contraction): Code(s): I49.3 - Ventricular premature depolarization Category: Medical Plan: History of symptomatic PVCs status post ablation in 2023. Continue metoprolol therapy. (6) GUADALUPE (obstructive sleep apnea): Code(s): G47.33 - Obstructive sleep apnea (adult) (pediatric) Category: Medical Plan: Continue CPAP therapy. Advised heart healthy diet, regular exercise, med compliance, and aggressive management of vascular risk factors. Follow up in 6 months. In the interim, patient will call the office with any concerns or change in symptoms. Advised to seek ER care in case of exertional chest pain not resolved with rest. This note was generated using voice recognition software. While every effort has been made to ensure accuracy and proper casing worker, there may be occasional errors that could affect the content or meaning of the described symptoms. Orders: Orders Cardiac Rehab Today Z98.61 - Coronary angioplasty status Medications: Refilled atorvastatin 80 mg PO BEDTIME 90 tabs 3RF Coding Level of Care Code Est Pt Level 4 (31311) Complex EM visit Add On G2211 Diagnoses Status post cardiac catheterization Z98.890 Atherosclerotic cardiovascular disease I25.10 Stented coronary artery Z95.5 LBBB (left bundle branch block) I44.7 PVC (premature ventricular contraction) I49.3 GAUDALUPE (obstructive sleep apnea) G47.33 Time Spent (min) 32 Comment Time spent in reviewing the chart, test results, assessment, counseling and documentation.
[2024-11-24 13:27] VITALS: BP 120/70; PULSE 75; BMI 32.3
--- OUTSIDE RECORDS SUMMARY | 2024-11-24 14:15 | XMS_ITS | Encounter Summary ---
Author Organization [employer] Address [address] [place] [address] [address] [place] [address] Care Team Providers Care Union Carpenter Name Role Phone Jenny Vázquez MD Primary Care Provider [phone] Encounter Details Date Type Department Care Team (Late st Contact Info) Description 10/31/[address] [facility] MEDICINE [address] [place] [address] Jenny Vázquez MD [address] [place] [address] Social History Tobacco Use Types Packs/Day Years [...] Description 2025 1:00 PM EDT Office Visit [facility] ADULT DENTAL [address] [place] [address] Marialuisa Parsons documented as of this encounter Procedures Procedure Name Priority Date/Time Associated Diagnosis Comments PAP/HPV Routine 10/02/2022 documented in this encounter Results * Pap Smear (10/02/2022) Pap Negative for intraephithelial lesion or malignancy Negative for intraephithelial lesion or malignancy, Other HPV Undetected Result [facility] Unassigned Pcp HEALTH MAINTENANCE Final Result documented in this encounter Visit Diagnoses Not on filedocumented in this encounter Additional Health Concerns Assessment Noted Time PHQ-9 Depression Total Score: 0 10/22/19 23 1:17 PM EDT documented as of this encounter Care Teams Union Carpenter Relationship Specialty Start Date End Date Jenny Vázquez MD [address] [place] [address] PCP - General Family Medicine 04/13/18 documented as of this encounter
== END 2024-11-24 13:52 | disposition home or self-care (01) ==
LOC: HO.HCS 13:22
PROVIDERS: PCP Family Medicine
DX: Z98.890 Other specified postprocedural states (principal); I25.10 Atherosclerotic heart disease of native coronary artery without angina pectoris; Z95.5 Presence of coronary angioplasty implant and graft; I44.7 Left bundle-branch block, unspecified; I49.3 Ventricular premature depolarization; G47.33 Obstructive sleep apnea (adult) (pediatric)
CPT/HCPCS: 99214; G2211

== ENCOUNTER → 2024-11-24 13:22 | Outpatient (BNVA) | payer MEDICARE, SELFPAY | PROVIDERS: PCP Family Medicine | DX: I25.10 Atherosclerotic heart disease of native coronary artery without angina pectoris (principal); Z98.890 Other specified postprocedural states; Z95.5 Presence of coronary angioplasty implant and graft; I44.7 Left bundle-branch block, unspecified; I49.3 Ventricular premature depolarization; G47.33 Obstructive sleep apnea (adult) (pediatric) | CPT/HCPCS: 99212 ==

== ENCOUNTER 2024-12-06 15:02 | Outpatient (REF) | payer MEDICARE, OTHER, SELFPAY ==
--- OUTSIDE RECORDS SUMMARY | 2024-12-06 15:56 | XMS_ITS | Encounter Summary ---
Author Organization [employer] Address [address] [facility] 7t [place] [address] Care Team Providers Care Inventory Specialist Name Role Phone Jenny Vázquez MD Primary Care Provider [phone] Encounter Details Date Type Department Care Team (Late st Contact Info) Description 12/30/2023 Orders Only [facility] MEDICINE [address] [place] [address] Jenny Vázquez MD [address] [place] [address] Primary hypertension (Primary Dx); Dyslipidemia; Fibromyalgia Social [...] 2025 1:00 PM EDT Office Visit [facility] ADULT DENTAL [address] [place] [address] Marialuisa Parsons documented as of this encounter Visit Diagnoses Diagnosis Primary hypertension- Primary Unspecified essential hypertension Dyslipidemia Other and unspecified hyperlipidemia Fibromyalgia Unspecified myalgia and myositis documented in this encounter Additional Health Concerns Assessment Noted Time PHQ-9 Depression Total Score: 0 10/22/19 23 1:17 PM EDT documented as of this encounter Care Teams Inventory Specialist Relationship Specialty Start Date End Date Jenny Vázquez MD [address] [place] [address] PCP - General Family Medicine 04/13/18 documented as of this encounter
--- OUTSIDE RECORDS SUMMARY | 2024-12-06 15:56 | XMS_ITS | Encounter Summary ---
Author Organization [employer] Address [address] [place] [address] 7[address] [place] [address] Care Team Providers Care Pipe Organ Mechanic Name Role Phone Jenny Vázquez MD Primary Care Provider [phone] Encounter Details Date Type Department Care Team (Late st Contact Info) Description 04/29/2022 Orders Only [facility] MED & PEDS [address] [place] [address] Lorraine Arroyo LPN Social History Tobacco Use [...] Description 2025 1:00 PM EDT Office Visit [facility] ADULT DENTAL [address] [place] [address] Marialuisa Parsons documented as of this encounter Procedures Procedure Name Priority Date/Time Associated Diagnosis Comments LIPID PANEL, STANDARD Routine 11/05/2022 8:43 AM EDT PAP SMEAR Routine 10/02/2022 3:36 PM EDT documented in this encounter Results * Lipid Panel, Standard (11/05/2022 8:43 AM EDT) Triglycerides 76 mg/dL [facility] Comment:Desirable Triglyceri de: less than 150 mg/dLBorderline High Triglyceride 150-199 mg/dLHigh Triglyceride: 200-499 mg/dLVery High Triglyceride: greater than or equal to 5OO mg/dL Cholesterol 118 mg/dL [facility] Comment:Desirable Cholestero l: less than 200 mg/dLBorderline High Cholesterol: 200-239 mg/dLHigh Cholesterol: greater than 239 mg/dL LDL Cholesterol Calculated 56 mg/dl [facility] Comment:Desirable LDL: less than 100 mg/dLNear Optimal/Above Optimal LDL: 110- 129 mg/dLBorderline High LDL: 130-159 mg/dLHigh LDL: 160-189 mg/dLVery High LDL: greater than or equal to 190 mg/dL HDL Cholesterol 47 mg/dL [facility] Comment:Desirable HDL: great er than 40 mg/dL Note: This HDL assay may give artificially low results in patients with liver disease. 11/05/2022 8:43 AM EDT 11/05/2022 11:40 AM EDT us Jenny Vázquez MD LAB BLOOD ORDERABLES Final Resul t [facility] [address] [place] [phone] * Pap Smear (10/02/2022 3:36 PM EDT) 10/02/2022 3:36 PM EDT 10/06/2022 12:00 PM EDT Narrative [facility] - 10/27/2022 10:49 AM EDT ----- ------- Name: Araseli Leary Age/Sex: 67/F : 1955 Unit#: [id number] Attend Dr: Argentina Mak CNM Re10/02/22 Status: DEP REF Location: [facility] Disch: ----- ------- SPEC : [id number] RECD: 10/06/22-1200 STATUS: GABRIELA JAVIER NUM: [id number] TODD: 10/02/22-1536 [facility] DR: Argentina Mak CNM ENTERED: 10/06/22-1318 SP TYPE: Pap Smr OTHR DR: Jenny Vázquez MD ORDERED: Pap Smear Interpretation Satisfactory for evaluation. Negative for intraepithelial lesion or malignancy. HPV mRNA E6/E7: NOT DETECTED This assay detects E6/E7 viral messenger RNA (mRNA) from 14 high-risk HPV types (16, 18, 31, 33, 35, 39, 45, 51, 52, 56, 58, 59, 66, 68) HPV testing performed by [email or web address], [place], [place]. See reference laboratory portion of the EMR for entire report. Clinical Information LMP: Menopausal Previous PAP test: 2018, ASCUS Material Received ThinPrep-Cervical Copies To: Argentina Mak CNM [address] [place] [address] Dr. Lamb [address] [place] [address] [phone] Jenny Vázquez MD [address] [place] [phone] ----- ------- Signed (signature on file) Berlin Rodriguez MD 10/27/22 1049 ----- ------- END OF REPORT [facility] External Provider LAB [facility] ORDERABLES Final Result [facility] [address] [place] [address] [phone] documented in this encounter Visit Diagnoses Not on filedocumented in this encounter Care Teams Pipe Organ Mechanic Relationship Specialty Start Date End Date Jenny Vázquez MD [address] [place] [phone] PCP - General Family Medicine 04/13/18 documented as of this encounter
--- OUTSIDE RECORDS SUMMARY | 2024-12-06 15:56 | XMS_ITS | Encounter Summary ---
Author Organization [employer] Address [address] [place] [address] [address] [place] [address] Care Team Providers Care Hand Ironer Name Role Phone Jenny Vázquez MD Primary Care Provider [phone] Encounter Details Date Type Department Care Team (Late st Contact Info) Description 10/31/2022 Abstract [facility] MEDICINE [address] [place] [address] Jenny Vázquez MD [address] [place] [address] Social History Tobacco Use Types Packs/Day Years [...] 1:00 PM EDT Office Visit [facility] ADULT DENTAL [address] [place] [address] Marialuisa Parsons documented as of this encounter Procedures Procedure Name Priority Date/Time Associated Diagnosis Comments PAP/HPV Routine 10/02/2022 documented in this encounter Results * Pap Smear (10/02/2022) Pap Negative for intraephithelial lesion or malignancy Negative for intraephithelial lesion or malignancy, Other HPV Undetected Result [facility] Unassigned Pcp HEALTH MAINTENANCE Final Result documented in this encounter Visit Diagnoses Not on filedocumented in this encounter Additional Health Concerns Assessment Noted Time PHQ-9 Depression Total Score: 0 10/22/19 23 1:17 PM EDT documented as of this encounter Care Teams Hand Ironer Relationship Specialty Start Date End Date Jenny Vázquez MD [address] [place] [address] PCP - General Family Medicine 04/13/18 documented as of this encounter
--- OUTSIDE RECORDS SUMMARY | 2024-12-06 15:56 | XMS_ITS | Encounter Summary ---
Author Organization [employer] Address [address] [facility] [address] [place] [address] Care Team Providers Care Director Oracle Name Role Phone Jenny Vázquez MD Primary Care Provider [phone] Encounter Details Date Type Department Care Team (Late st Contact Info) Description 03/09/2023 Abstract [facility] ADULT DENTAL [address] [place] [address] Nathanael Crespo DDS [address] [place] [address] Social History Tobacco Use Types Packs/Day Years [...] Description 2025 1:00 PM EDT Office Visit [facility] ADULT DENTAL [address] [place] [address] Marialuisa Parsons documented as of this encounter Visit Diagnoses Not on filedocumented in this encounter Additional Health Concerns Assessment Noted Time PHQ-9 Depression Total Score: 0 10/22/19 23 1:17 PM EDT documented as of this encounter Care Teams Director Oracle Relationship Specialty Start Date End Date Jenny Vázquez MD [address] [place] [address] PCP - General Family Medicine 04/13/18 documented as of this encounter
--- OUTSIDE RECORDS SUMMARY | 2024-12-06 15:56 | XMS_ITS | Clinical Summary ---
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 Aspirin Low Dose 81 MG EC tablet Take 81 mg by mouth in the morning. 2 Active nitroglycerin (Nitrostat) 0.4 MG SL tablet DISSOLVE 1 TABLET UNDER THE TONGUE EVERY 5 MINUTES NEEDED FOR CHEST PAIN. CALL 911 IF NO RELIEF 2 Active fluticasone (Flonase) 50 MCG/ACT nasal sprayIndications :Allergic rhinitis, unspecified seasonality, unspecified trigger INSTILL 2 SPRAYS IN EACH NOSTRIL ONCE DAILY 16 g 11 3 Active budesonide-formo terol (Symbicort) 160-4.5 [...] mg by mouth 4 times daily. Active montelukast (Singulair) 10 MG tabletIndication s:Moderate persistent asthma without complication,All ergic rhinitis, unspecified seasonality, unspecified trigger Take 1 tablet (10 mg) by mouth at bedtime. 90 tablet 3 4 Active colchicine 0.6 MG tablet TAKE 1 TABLET BY MOUTH EVERY DAY FOR 7 DAYS 4 Active EPINEPHrine (Epipen) 0.3 MG/0.3ML injection syringe USE DIRECTED FOR ANAPHYLAXIS Active semaglutide (Ozempic) 2 MG/1.5ML solution pen-injector Inject 0.5 mg under the skin 1 (one) time per week. 1.5 mL 11 5 Active pregabalin (Lyrica) 50 MG capsuleIndicatio ns:Fibromyalgia TAKE 1 CAPSULE BY MOUTH EVERY TWELVE HOURS 60 capsule 3 5 Active triamcinolone (Kenalog) 0.1 % ointment APPLY TO THE AFFECTED AREA(S) TWICE DAILY 453 g 3 5 Active Alcohol Swabs (Alcohol Prep) pads Check blood sugar once daily and as needed 100 each 11 5 Active FreeStyle lancets 1 each by Other route Once per day. Check blood glucose 100 each 5 Active FREESTYLE LITE test strip Check blood glucose 100 each 5 Active sertraline (Zoloft) 25 MG tablet 5 Active Incruse Ellipta 62.5 MCG/ACT aerosol powder take 1 puff by mouth every day 4 Active glucose blood (OneTouch Ultra) test stripIndications :Type 2 diabetes mellitus without complication, without long-term current use of insulin (CMS/HCC) Use to test blood sugar once daily 50 each 12 5 11/24/19 26 Active Blood Glucose Monitoring Suppl (ONE TOUCH ULTRA 2) w/Device kitIndications:T ype 2 diabetes mellitus without complication, without long-term current use of insulin (CMS/HCC) Use to test blood sugar once daily 1 kit 5 Active Lancets (onetouch ultrasoft) lancetsIndicatio ns:Type 2 diabetes mellitus without complication, without long-term current use of insulin (CMS/HCC) 1 each by Other route Once per day. Check blood sugar once daily 360 each 5 11/24/19 26 Active Active Problems Problem Noted Date Diagnosed Date Ganglion cyst of volar aspect of left wrist 10/11 Assessment & Plan (10/24/2024 5:04 AM EDT): - previously seen by [facility] Ortho. Surgical excisional biopsy was recommended, but postponed due to her cardiac condition. Will refer back. Persistent depressive disorder 05/03/2024 Assessment & Plan [...] baking, cleaning her home and listening to baptism music. Araseli reports taking medication prescribed by her PCP and having improvements from them. clinician will provide additional support if needed during next medical appointment. Ischemic heart disease 08/05/2022 Assessment & Plan (10/24/2024 5:09 AM EDT): -Watch Inspector Final Movement: [facility], Dr. Cesar and Janna Cruz NP, last [...] discontinued when she was last seen by test desk trouble locator in Apr 2024. -Continue Metoprolol, ASA and Atorvastatin -Continue isosorbide for antianginal effect. Recently increased dose to 90 mg daily. -Cont working on lifestyle modifications. Assessment & Plan (06/06/2024 3:21 PM EST): -Watch Inspector Final Movement: Dr. Arsenio TAPIA and Janna Cruz NP, last seen on [...] discontinued when she was last seen by test desk trouble locator in Apr 2024. -Continue Metoprolol, ASA and Atorvastatin -Continue isosorbide -Cont working on lifestyle modifications. Assessment & Plan (02/15/2024 1:39 PM EST): -Watch Inspector Final Movement: Dr. Arsenio Bernard, last seen on 01/08/23 [...] Assessment & Plan (01/28/2023 8:56 PM EDT): -Watch Inspector Final Movement: Dr. Asrenio TAPIA, last seen on 01/08/23 - NSTEMI [...] Assessment & Plan (10/28/2022 7:06 AM EDT): -Watch Inspector Final Movement: [facility], Dr. Cesar, last seen on 08/05/22; upcoming Pre-Op appt [...] Assessment & Plan (08/15/2022 6:38 AM EDT): -Watch Inspector Final Movement[facility] - NSTEMI in September2021 -s/p MOOK -Continue Metoprolol, Plavix, ASA and Atorvastatin -Pt had ran out of Plavix 2 weeks ago. Advised not to d/c Plavix. Emphasize importance of taking Plavix and ASA for at least 1 yr. -Cont working on lifestyle modifications. Hemorrhoids 08/05/2022 Assessment & Plan (10/24/2024 5:14 AM EDT): - Hydrocortisone Suppositories not covered by insurance - Hydrocortisone cream and/or Lidocaine cream was prescribed instead of suppository - She was supposed to have hemorrhoidectomy in 2022- due to recent LAD stent, pt needed to be on uninterrupted dual antiplatelet therapy for at least 1 year. Therefore, the procedure was postponed. - Patient was recently evaluated by Dr. De Anda again, and is being scheduled for hemorrhoidectomy. - continue bowel regimen - sitz bath Assessment & Plan (01/28/2023 9:03 PM EDT): [...] on 10/20/22. Being scheduled for Pre-Op with Watch Inspector Final Movement. Pt needs Cardiac Clearance Before Hemorrhoidectomy. - [...] GERD (gastroesophageal reflux disease) Assessment & Plan (10/24/2024 5:12 AM EDT): Continue pantoprazole (Pt is taking clopidogrel) Continue metoclopramide, simethicone Minimize NSAIDs use Assessment & Plan (06/06/2024 3:28 PM EST): Continue pantoprazole (Pt is taking clopidogrel) Minimize NSAIDs use Will refer to GI Specialist Assessment & Plan (08/15/2022 6:39 AM EDT): Continue pantoprazole (Pt is taking clopidogrel) Minimize NSAIDs use Will refer to GI Specialist Balance problem 08/05/2022 Closed fracture of right proximal humerus 2022 [...] Nonsustained ventricular tachycardia 05/29/2017 Assessment & Plan (10/13/2024 10:50 PM EDT): - previously on Fleicanide, which [...] cause of frequent PVCs. Assessment & Plan (06/06/2024 3:23 PM EST): [...] adenoma of colon 03/16/2017 Assessment & Plan (10/24/2024 5:11 AM EDT): - last colonoscopy in 2017, tubular adenoma, recommended to have colonoscopy in 5 years - need for at least 1 year of uninterrupted dual antiplatelet therapy post- stent, colonoscopy is being postponed. Assessment & Plan (06/06/2024 3:28 PM EST): [...] hearing loss, bilateral 05/12/2016 Assessment & Plan (10/24/2024 5:10 AM EDT): - evaluated by agriscience instructor - wears hearing aids; needs a new referral Assessment & Plan (02/10/2024 8:13 AM EDT): - evaluated by agriscience instructor - wears hearing aids Assessment & Plan (08/15/2022 6:43 AM EDT): - evaluated by agriscience instructor - wears hearing aids Type 2 diabetes mellitus 04/03/2015 Assessment & Plan (10/24/2024 5:15 AM EDT): A1c 6.1% on 10/11/24, improved from 6.3 today 06/06/24, trending down -No longer taking metformin. -Discussed about restarting it if her glycemic control continues to worsen. -Avoid / prevent getting systemic steroids for her allergy and asthma. -Continue lifestyle modification. -Continue Semaglutide -Continue SMBG. -Last eye exam: Feb 2023, had an appointment on 03/01/24 (requesting a note) -Last foot exam: May 2024, plantar fasciitis, ingrown toenail, sees agricultural mechanic. -Last microalbumin test: 06/07/24 UACR TNP -Last lipid profile: 06/07/24 TC 121; TG 106; HDL 44; LDL 56 -Last dental exam: up-to-date; upcoming in APR 2022 Assessment & Plan (06/14/2024 11:16 AM EST): [...] May 2024, plantar fasciitis, ingrown toenail, sees agricultural mechanic. -Last microalbumin test: 11/05/22 UACR 4.9; -Last [...] exam: 08/05/22, plantar fasciitis, ingrown toenail, sees agricultural mechanic. -Last microalbumin test: 11/05/22 UACR 4.9; -Last [...] exam: 08/05/22, plantar fasciitis, ingrown toenail, sees agricultural mechanic. -Last microalbumin test: 11/05/22 UACR 4.9; -Last [...] exam: 08/05/22, plantar fasciitis, ingrown toenail, sees agricultural mechanic. -Last microalbumin test: 10/25/18 UACR no microalbuminuria [...] exam: 08/05/22, plantar fasciitis, ingrown toenail, sees agricultural mechanic. -Last microalbumin test: 10/25/18 UACR no microalbuminuria -Last lipid profile: 01/09/22 TC 134; TG 196; HDL 43; LDL 52 -Last dental exam: up-to-date; upcoming in APR 2022 -Immunizations: -Influenza - due -Pneumovax - due (PCV-13) -Hep B - completed -Aspirin use: Prescribed Dyslipidemia 11/07/2014 Assessment & Plan (10/13/2024 10:52 PM EDT): Last lipid profile: 06/07/24 TC 121; TG 106; HDL 44; LDL 56 Current medication: atorvastatin 80 mg qhs Tx Hx: -Pt previously c/o myalgia using atorvastatin which was changed to pravastatin, switched back to atorvastatin d/t NSTEMI and tolerating at this time Assessment & Plan (06/06/2024 3:29 PM EST): [...] time 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 Cesar, on 01/09/22 for CAD and PVC f/u: -TTE was ordered by Watch Inspector Final Movement -most recent Holter monitor in Dec 2019 PVC 3%. -09/20/21 Echo LVEF 45-50%, p/s Stent -Continue metoprolol succinate 50 mg TWO tablets daily -Continue BB -Previously flecainide 100 mg BID. d/c d/t hospitalization Fibromyalgia 07/20/2014 Assessment & Plan (06/06/2024 3:28 PM EST): Followed by Leather Etcher -Continue Lyrica, use judiciously -Continue staying active Assessment & Plan (02/10/2024 8:12 AM EDT): Followed by Leather Etcher -Continue Lyrica, use judiciously -Continue staying active Assessment & Plan (08/05/2022 9:27 AM EDT): Followed by Leather Etcher -Continue Lyriccarlo, use judiciously -Continue staying active Allergic rhinitis 03/24/2013 Assessment & Plan (02/15/2024 1:48 PM EST): - continue loratadine and montelukast - following with [facility] specialist Assessment & Plan (10/21/2022 2:19 PM EDT): - continue loratadine and montelukast - will check status of referral Assessment & Plan (08/15/2022 6:43 AM EDT): - continue loratadine and montelukast - refer to a new [facility] specialist Depressive disorder 03/24/2013 Hypertension 03/24/2013 Assessment & Plan (10/24/2024 5:16 AM EDT): - Goal BP < 130/80 per ACC/AHA - BP at goal -Continue Metoprolol 100 mg daily -Continue Lifestyle modifications -Continue monitoring BP at home -Previously tried ARB, ACEI, and HCTZ -Discontinued ACEI due to cough -Follow up in 3-6 mo or sooner prn Assessment & Plan (06/06/2024 3:28 PM EST): [...] sleep apnea syndrome 03/24/2013 Assessment & Plan (10/13/2024 10:51 PM EDT): - central office installer changed mask for nasal pillow per patient's request in May 2023 - recommended CPAP use Assessment & Plan (06/06/2024 3:27 PM EST): - central office installer changed mask for nasal pillow per patient's request in May 2023 - recommended CPAP use Assessment & Plan (02/14/2024 5:29 PM EST): - central office installer changed mask for nasal pillow per patient's request in May 2023 - recommended CPAP use Assessment & Plan (01/28/2023 8:51 PM EDT): - continue CPAP Asthma 12/10/2012 Assessment & Plan (10/13/2024 10:50 PM EDT): - Previously followed by Allergy / business analytics specialist : Dr. Ahn - Seen by new central office installer at [facility] in May 2023 - No history of intubation, Hx pneumonia and influenza in Apr 2018 - Severe exacerbation 1 or 2 times / year - Last exacerbation in Mar 2024, Rx prednisone, doxycycline. - Continue Symbicort and Singulair as maintenance. - Continue albuterol HFA / neb prn as rescue. Assessment & Plan (06/06/2024 6:25 AM EST): - Previously followed by Allergy / business analytics specialist : Dr. Ahn - Seen by new central office installer at [facility] in May 2023 - No history of [...] EST): - Previously followed by Allergy / business analytics specialist : Dr. Ahn - Seen by new central office installer at [facility] in May 2023 - No history of intubation, Hx pneumonia and influenza in Apr 2018 - Severe exacerbation 1 or 2 times / year - Continue Symbicort and Singulair as maintenance. - Continue albuterol HFA / neb prn as rescue. Assessment & Plan (01/28/2023 8:51 PM EDT): - Previously followed by Allergy / business analytics specialist : Dr. Ahn - Seen by new central office installer at [facility] in August 2022 - No history of intubation, Hx pneumonia and influenza in Apr 2018 - Severe exacerbation 1 or 2 times / year - Continue Symbicort and Singulair as maintenance. - Continue albuterol HFA / neb prn as rescue. Assessment & Plan (10/28/2022 6:57 AM EDT): - Previously followed by Allergy / business analytics specialist : Dr. Ahn - Seen by new central office installer at [facility] in August 2022 - No history of intubation, Hx pneumonia and influenza in Apr 2018 - Severe exacerbation 1 or 2 times / year - Continue Symbicort and Singulair as maintenance. - Continue albuterol HFA / neb prn as rescue. Assessment & Plan (08/15/2022 6:29 AM EDT): - Allergy / business analytics specialist : Dr. Ahn, needs a new allergy insurance marketing specialist - No history of intubation, Hx pneumonia and influenza in Apr 2018 - Severe exacerbation 1 or 2 times / year - Continue Symbicort and Singulair as maintenance. - Continue albuterol HFA / neb prn as rescue. Resolved Problems Problem Noted Date Diagnosed Date Resolved Date Dental abscess 02/18/2023 10/24/2024 Other chest pain 06/13/2022 10/24/2024 Assessment & Plan (06/17/2022 12:00 PM EST): [...] she would like me to call her test desk trouble locator and try to get a sooner appointment and she said shes fine and can wait. I asked her if she felt safe and she said she did. We discussed her nitroglycerin and when to use it and ED precautions. Differentials: stable vs unstable angina, left sided axillary pain, frequent or high PVC burden. Encounters Date Type Department Care Team Description 11/23/2024 Refill [facility] [address] [facility] [place] [address] Jenny Vázquez MD Type 2 diabetes mellitus without complication, without long-term current use of insulin (CMS/HCC) 11/23/2024 Refill [facility] MED[facility] [address] [place] [address] Jenny Vázquez MD 10/26/2024 Orders Only GENERIC EXTERNAL DATA DEPARTMENT Provider, Generic External Data 10/11/2024 2:15 PM EDT Office Visit [facility] [address] [facility] [place] [address] Jenny Vázquez MD Ischemic heart disease (Primary Dx); Primary hypertension; Dyslipidemia; Nonsustained ventricular tachycardia (CMS/HCC); Frequent PVCs; Type 2 diabetes mellitus without complication, without long-term current use of insulin (CMS/HCC); Moderate persistent asthma without complication; Obstructive sleep apnea syndrome; Mixed conductive and sensorineural hearing loss, bilateral; Ganglion cyst of volar aspect of left wrist; Tubular adenoma of colon; Gastroesophageal reflux disease, unspecified whether esophagitis present; Hemorrhoids, unspecified hemorrhoid type 10/11/2024 Travel 10/10/2024 Telephone [facility] MED[facility] [address] [place] [address] Jenny Vázquez MD Chart Prep 10/04/2024 3:20 PM EDT Office Visit [facility] WALK[facility]IN CENTER [address] [place] [address] Loyda Hopkins MD Chest discomfort; Precordial chest pain 10/04/2024 Orders Only GENERIC EXTERNAL DATA DEPARTMENT Provider, Generic External Data 10/04/2024 Telephone [facility] [address] [place] [address] Loyda Hopkins MD Nurse Triage 10/04/2024 Travel 09/26/2024 Orders Only GENERIC EXTERNAL DATA DEPARTMENT Provider, Generic External Data 09/26/2024 Telephone [facility] [address] [place] [address] Jenny Vázquez MD Nurse Triage 09/06/2024 Refill [facility] [address] [place] [address] Jenny Vázquez MD Fibromyalgia from Last 3 Months Immunizations Immunization Administration Dates Next Due Hep B, adult [...] Sign Reading Time Taken Comments Blood Pressure 116/78 10/11/2024 2:47 PM EDT Pulse 82 10/11/2024 2:47 PM EDT Temperature 36 C (96.8 F) 10/11/2024 2:47 PM EDT Respiratory Rate 17 10/11/2024 2:47 PM EDT Oxygen Saturation 98% 10/04/2024 2:34 PM EDT RA Inhaled Oxygen Concentration - - Weight 83.2 kg (183 lb 6.4 oz) 10/11/2024 2:47 P M EDT Height 157 cm (5' 1.81 ) 10/11/2024 2:47 PM EDT Body Mass Index 33.75 10/11/2024 2:47 PM EDT Plan of Treatment Upcoming Encounters Date Type Department Care Team (Late st Contact Info) Description 2025 1:00 PM EDT Office Visit [facility] ADULT DENTAL [address] [place] [address] Marialuisa Parsons Health Maintenance Due Date Last [...] 08/20/2020, 10/19/2015 Depression Monitoring 10/31/2024 05/03/2024, 025 Influenza Vaccine (#1) 2024 , 01/26/2023, 02/18/2022, Additional history exists Alcohol/Substance Use Screening 02/07/2025 02/08/2024 SDOH Screening 02/07/2025 02/08/2024 Eye Exam 03/03/2025 03/03/2023 Diabetes: Hemoglobin A1C 04/13/2025 025, 06/06/2024, 02/08/2024, Additional history exists Diabetes: Urine Protein Screening 06/07/2025 06/07/2024, 11/05/2022, 02/18/2022 Lipid Panel 06/07/2025 06/07/2024, 10/12, 01/09/2022 Diabetes: Foot Exam 10/11/2025 10/11/2024, 10/11/2024, 10/11/2024, Additional history exists Tobacco Screening 10/11/2025 10/11/2024 Mammogram 02/11/2026 02/12/2024, 01/12, 02/04/2022, Additional history exists Colonoscopy 12/09/2026 12/09/2016 Colorectal Cancer Screening 12/09/2026 DTaP/Tdap/Td Vaccines (3 - Td or Tdap) 02/19/2032 02/18/2022, 06/04/2011, 04/13/2004 Hepatitis B Vaccines Completed 03/16/2017, 11/07/2014, 03/24/2013 Pneumococcal Vaccine: 50+ Years Completed 02/08/2024, 01/04/2009 [...] patient's age to complete this topic Meningococcal B Vaccine Aged Out No l onger eligible based on patient's age to complete [...] Procedure Name Priority Date/Time Associated Diagnosis Comments BASIC METABOLIC PANEL Routine 10/26/2024 3:12 PM EDT PROTHROMBIN TIME-INR Routine 10/26/2024 3:12 PM EDT CBC Routine 10/26/2024 3:12 PM EDT POCT GLYCOSYLATED HEMOGLOBIN (HGB A1C) Routine 10/11/2024 4:08 PM EDT Type 2 diabetes mellitus without complication, without long-term current use of insulin ([facility]) POCT GLUCOSE Routine 10/11/2024 2:47 PM EDT Type 2 diabetes mellitus without complication, without long-term current use of insulin ([facility]) HIGH SENSITIVITY TROPONIN I Routine 10/04/2024 6:22 PM EDT ECG 12-LEAD Routine 10/04/2024 4:09 PM EDT Precordial chest pain HIGH SENSITIVITY TROPONIN I Routine 09/26/2024 3:19 PM EDT XR CHEST 2 VIEWS Routine 09/26/2024 12:4 0 PM EDT HIGH SENSITIVITY TROPONIN I Routine 09/26/2024 11:46 AM EDT MAGNESIUM Routine 09/26/2024 11:46 AM EDT COMPREHENSIVE METABOLIC PANEL Routine 09/26/2024 11:46 AM EDT PROTHROMBIN TIME-INR Routine 09/26/2024 11:46 AM EDT CBC WITH AUTO DIFFERENTIAL Routine 09/26/2024 11:46 AM EDT SARS COV2/INFLUENZA A/B AND RSV RNA QL NAAT Routine 09/26/2024 11:46 AM EDT ALBUMIN, RANDOM URINE W/CREATININE Routine 06/07/2024 10:46 AM EST Type 2 diabetes mellitus without complication, without long-term current use of insulin ([facility]) Primary hypertension LIPID PANEL WITH REFLEX TO DIRECT LDL Routine 06/07/2024 10:46 AM EST Dyslipidemia BI MAMMOGRAM SCREENING TOMOSYNTHESIS BILATERAL Routine 02/12/2024 [...] Recently Relevant to Health Maintenance Results * Prothrombin Time-INR (10/26/2024 3:12 PM EDT) Only the most recent of2 resultswithin the time period is included. Prothrombin Time 11.9 10.9 - 12.4 SEC [facility] INTERNATIONAL NORM RATIO 1.0 0.9 - 1.1 [facility] Comment:INTERNATIONAL NORMAL IZED RATIO (INR) REFERENCE RANGES Reference RangeFor patients not on anticoagulant therapy: 0.9 - 1.1INR ranges for oral anticoagulanttherapy:For prevention and treatment of venous thrombosis and pulmonary embolism: 2.0 - 3.0For acute myocardial infarction with aspirin therapy: 2.0 - 3.0For acute myocardial infarction without aspirin therapy: 3.0 - 4.0For patients with mechanical prosthetic heart valves: 2.5 - 3.5 10/26/2024 3:12 PM EDT 10/26/2024 3:12 PM EDT us Generic External Data Provider LAB BLOOD ORDERAB LES Final Result [facility] [address] [place] [phone] * (ABNORMAL) CBC (10/26/2024 3:12 PM EDT) White Blood Count 11.1(H) 4.8 - 10.8 X10*3/uL [facility] Red Blood Count 4.70 4.20 - 5.50 X10*6/uL [facility] Hemoglobin 12.8 12.0 - 16.0 g/dl [facility] Hematocrit 40.8 37.0 - 47.0 % [facility] Mean Corpuscular Volume 86.8 80.0 - 98.0 fL [facility] Mean Corpuscular Hemoglobin 27.2 27.0 - 33.0 pg [facility] Mean Corpuscular HGB Conc 31.4 31.0 - 35.0 g/dl [facility] Red Cell Distribution Width 14.8 11.0 - 16.0 % [facility] Platelet Count 260 160 - 400 X10*3/uL [facility] Mean Platelet Volume 10.4 9.4 - 12.3 fL [facility] NRBC Pct Auto 0.0 0.0 - 0.2 /100WBC [facility] NRBC Abs Auto 0.000 0.0 - 0.012 X10*3/uL [facility] 10/26/2024 3:12 PM EDT 10/26/2024 3:12 PM EDT Generic External Data Provider LAB BLOOD ORDERAB LES Final Result Performing Organization Address [facility]/ZIP Co de Phone Number [facility] [address] [place] [address] [phone] * (ABNORMAL) Basic Metabolic Panel (10/26/2024 3:12 PM EDT) Sodium 142 135 - 145 mmol/L [facility] Potassium 4.4 3.3 - 5.1 mmol/L [facility] Chloride 108 96 - 108 mmol/L [facility] Carbon Dioxide 29 22 - 29 mmol/L [facility] Anion Gap 9(L) 12 - 20 [facility] Urea Nitrogen (BUN) 17(H) 9 - 16 mg/dL [facility] Creatinine, Serum 1.02 0.5 - 1.4 mg/dL [facility] Estimated Glomerular Filt Rate 54 [facility] Comment:Chronic Kidney Disea se: Estimated GFR < 60 mL/min/[id number] Kidney Disease: Estimated GFR < 15 mL/min/1.73m2 Glucose 80 60 - 115 mg/dL [facility] Calcium 8.9 8.4 - 10.2 mg/dL [facility] 10/26/2024 3:12 PM EDT 10/26/2024 3:12 PM EDT us Generic External Data Provider LAB BLOOD ORDERAB LES Final Result Performing Organization Address City/[facility]/ZIP Co de Phone Number [facility] [address] [place] [address] [phone] * (ABNORMAL) POCT glycosylated hemoglobin (Hgb A1c) (10/11/2024 4:08 PM EDT) Hemoglobin A1C 6.1(A) 4.0 - 5.7 % QC Media Lot # [id number] Lot# Expiration Date ,073 Blood Capillary blood specimen / Unknown 10/11/2024 4:08 PM EDT Jenny Vázquez MD POINT OF CARE TEST ENTER/EDIT OR DERABLES Final Result * POCT glucose manually resulted (10/11/2024 2:47 PM EDT) Glucose Blood, POC 169 60 - 200 mg/dL [employer] Media Lot # [id number] Lot# Expiration Date ,378 Blood Capillary blood specimen / Unknown 10/11/2024 2:47 PM EDT Jenny Vázquez MD POINT OF CARE TEST ENTER/EDIT OR DERABLES Final Result * High Sensitivity Troponin I (10/04/2024 6:22 PM EDT) Only the most recent of3 resultswithin the time period is included. TROPONIN I HIGH SENSITIVITY <2.7 <3.5 - 17.0 ng/L [facility] Comment:The Leiva high sens itivity Troponin-I results should beused in conjunction with other diagnostic information suchas ECG, clinical observations and information, and patientsymptoms to aid in the diagnosis of NV. 10/04/2024 6:22 PM EDT 10/04/2024 6:25 PM EDT Generic External Data Provider LAB BLOOD ORDERAB LES Final Result [facility] [address] [place] [phone] * ECG 12 lead (10/04/2024 4:09 PM EDT) Narrative Loyda Hopkins MD - 10/04/2024 4:09 PM EDT NRS HR 98, LBBB Loyda Fernandez MD ECG ORDERABLES Final Result * XR Chest 2 Views (09/26/2024 12:40 PM EDT) Anatomical Region Laterality Modality Chest Radiographic Imani ging 09/26/2024 12:4 0 PM EDT Narrative 09/26/2024 1:00 PM EDT [address] [address] XRay Report Signed Patient: Araseli Leary MR#: [id number] : 1955 Acct:[id number] Age/Sex: 69 / F ADM Date: 09/26/24 Loc: HO.ED Attending Dr: Ordering Physician: Shahrzad Dunn Date of Service: 09/26/24 Procedure(s): XR chest 2V Accession Number(s): [id number] cc: Shahrzad Dunn; Jenny Vázquez MD EXAMINATION: XR CHEST CLINICAL INFORMATION: chest pain COMPARISON: March 06, 2023. TECHNIQUE: 2 views of the chest were obtained. FINDINGS: No consolidation, pleural effusion or pneumothorax Cardiomediastinal silhouette size is normal. Multilevel thoracic spondylosis.. XR/XR chest 2V IMPRESSION: No acute airspace disease. Electronically signed by: Erik Black MD 09/26/2024 12:57 PM EDT Dictated By: Erik Lenz MD Signed By: <Electronically signed by Erik Troy MD in OV> 09/26/24 1257 DD/ 1240 TD/TT: 09/26/24 1254 Operations Administrator: Procedure Note Donotuseinterpreter, Image - 09/26/[address] [address] XRay Report Signed Patient: Krishna LearyR#: [id number] : 1955cct:[id number] Age/Sex: 69 / FADM Date: 09/26/24 Loc: HO.ED Attending Dr: Ordering Physician: Shahrzad Dunn Date of Service: 09/26/24 Procedure(s): XR chest 2V Accession Number(s): [id number] cc: Shahrzad Dunn; Jenny Vázquez MD EXAMINATION: XR CHEST CLINICAL INFORMATION: chest pain COMPARISON: March 06, 2023. TECHNIQUE: 2 views of the chest were obtained. FINDINGS: No consolidation, pleural effusion or pneumothorax Cardiomediastinal silhouette size is normal. Multilevel thoracic spondylosis.. XR/XR chest 2V IMPRESSION: No acute airspace disease. Electronically signed by: Erik Black MD 09/26/2024 12:57 PM EDT RP Dictated By: Erik Lenz MD Signed By: <Electronically signed by Erik Troy MDin OV> 09/26/24 1257 DD/ 1240 TD/TT: 09/26/24 1254 Operations Administrator: [facility] External Provider IMG XR PROCEDURES Edited Result - Final * SARS-CoV-2 RNA, Influenza A/B, and RSV RNA, Ql NAAT (09/26/2024 11:46 AM EDT) Influenza A PCR NEGATIVE Negative [facility] Influenza B PCR NEGATIVE Negative [facility] Resp Syncy Virus RNA Qual PCR NEGATIVE Negative [facility] SARS COV2 PCR NEGATIVE Negative [facility] Comment:All test results mus t be correlated with clinical findings.Negative results do not preclude SARS-CoV2, influenza Avirus, influenza B virus and/or RSV infectionand should not be used as the sole basis for treatment orother patient management decisions. Negative results must becombined with clinical observations, patient history, andepidemiological information.This test has not been evaluated for monitoring treatment ofinfection.This test has been authorized by the FDA under an EmergencyUse Authorization (EUA) for use by authorized laboratories.Testing performed on the [employer] GeneXpert utilizingreal-time RT-PCR.All SARS CoV2 and positive influenza A/B results arereported to [facility]. 09/26/2024 11:4 6 AM EDT 09/26/2024 12:17 PM EDT us Generic External Data Provider LAB MICROBIOLOGY - GENERAL ORDERABLES Final Result [facility] [address] [place] [address] [phone] * (ABNORMAL) CBC auto differential (09/26/2024 11:46 AM EDT) White Blood Count 10.0 4.8 - 10.8 X10*3/uL [facility] Red Blood Count 5.17 4.20 - 5.50 X10*6/uL [facility] Hemoglobin 14.2 12.0 - 16.0 g/dl [facility] Hematocrit 44.5 37.0 - 47.0 % [facility] Mean Corpuscular Volume 86.1 80.0 - 98.0 fL [facility] Mean Corpuscular Hemoglobin 27.5 27.0 - 33.0 pg [facility] Mean Corpuscular HGB Conc 31.9 31.0 - 35.0 g/dl [facility] Red Cell Distribution Width 14.9 11.0 - 16.0 % [facility] Platelet Count 236 160 - 400 X10*3/uL [facility] Mean Platelet Volume 10.8 9.4 - 12.3 fL [facility] Neutrophils Percent Auto 66.7 45 - 73 % [facility] Imm Gran Pct Auto 0.6(H) 0.0 - 0.4 % [facility] Lymphocytes Percent Auto 24.0 20 - 40 % [facility] Monocytes Percent Auto 5.5 2 - 11 % [facility] Eosinophils Percent Auto 2.2 0 - 4 % [facility] Basophils Percent Auto 1.0 0 - 2 % [facility] NRBC Pct Auto 0.0 0.0 - 0.2 /100WBC [facility] Neutrophils Absolute Auto 6.7 2.0 - 8.3 x10*3/uL [facility] Imm Gran Abs Auto 0.06(H) 0.00 - 0.03 X10*3/uL [facility] Lymphocytes Absolute Auto 2.4 1.2 - 4.9 X10*3/uL [facility] Monocytes Absolute Auto 0.6 0.1 - 1.2 X10*3/uL [facility] Eosinophils Absolute Auto 0.2 0.0 - 0.4 X10*3/uL [facility] Basophils Absolute Auto 0.1 0.0 - 0.2 X10*3/uL [facility] NRBC Abs Auto 0.000 0.0 - 0.012 X10*3/uL [facility] 09/26/2024 11:4 6 AM EDT 09/26/2024 12:17 PM EDT Generic External Data Provider LAB BLOOD ORDERAB LES Final Result Performing Organization Address [facility]/ZIP Co de Phone Number [facility] [address] [place] [phone] * Magnesium (09/26/2024 11:46 AM EDT) Magnesium 2.1 1.6 - 2.6 mg/dL [facility] 09/26/2024 11:4 6 AM EDT 09/26/2024 12:17 PM EDT Generic External Data Provider LAB BLOOD ORDERAB LES Final Result Performing Organization Address [facility] de Phone Number [facility] [address] [place] [phone] * (ABNORMAL) Comprehensive Metabolic Panel (09/26/2024 11:46 AM EDT) Sodium 144 135 - 145 mmol/L [facility] Potassium 4.5 3.3 - 5.1 mmol/L [facility] Chloride 112(H) 96 - 108 mmol/L [facility] Carbon Dioxide 24 22 - 29 mmol/L [facility] Anion Gap 13 12 - 20 [facility] Urea Nitrogen (BUN) 20(H) 9 - 16 mg/dL [facility] Creatinine, Serum 0.95 0.5 - 1.4 mg/dL [facility] Creatinine Clr Calc Pharmacy 58.1 [facility] Comment:Provided height and weight: 160.02 cm,83.7 kg.eGFR (calculated from the MDRD study equation) and eCrCl(calculated from the Cockcroft-Gault equation) are based ondifferent parameters and may not yield comparable results.If eCrCl result is absurd, please check patient'sheight/weight. Estimated Glomerular Filt Rate 58 [facility] Comment:Chronic Kidney Disea se: Estimated GFR < 60 mL/min/1.38n1Ltqoxz Kidney Disease: Estimated GFR < 15 mL/min/1.73m2 Glucose 138(H) 60 - 115 mg/dL [facility] Calcium 9.3 8.4 - 10.2 mg/dL [facility] Bilirubin, Total 0.2 0.0 - 1.0 mg/dL [facility] Aspartate Amino Transferase 22 5 - 31 U/L [facility] Alanine Aminotransferase 21 0 - 31 U/L [facility] Total Protein 6.3(L) 6.5 - 8.0 g/dL [facility] Albumin Level 3.9 3.5 - 5.0 g/dL [facility] Alkaline Phosphatase 116 39 - 117 U/L [facility] 09/26/2024 11:4 6 AM EDT 09/26/2024 12:17 PM EDT us Generic External Data Provider LAB BLOOD ORDERAB LES Final Result [facility] [address], [place] [phone] * Lipid Panel with Reflex to Direct LDL (06/07/2024 10:46 AM EST) Triglycerides 106 <150 mg/dL [facility] Comment:Desirable Triglyceri de: less than 150 mg/dLBorderline High Triglyceride 150-199 mg/dLHigh Triglyceride: 200-499 mg/dLVery High Triglyceride: greater than or equal to 5OO mg/dL Cholesterol 121 <200 mg/dL [facility] Comment:Desirable Cholestero l: less than 200 mg/dLBorderline High Cholesterol: 200-239 mg/dLHigh Cholesterol: greater than 239 mg/dL LDL Cholesterol Calculated 56 <100 mg/dL [facility] Comment:Desirable LDL: less than 100 mg/dLNear Optimal/Above Optimal LDL: 110- 129 mg/dLBorderline High LDL: 130-159 mg/dLHigh LDL: 160-189 mg/dLVery High LDL: greater than or equal to 190 mg/dL HDL Cholesterol 44 >40 mg/dL [facility] Comment:Desirable HDL: great er than 40 mg/dL Note: This HDL assay may give artificially low results in patients with liver disease. Blood 06/07/2024 10:4 6 AM EST 06/07/2024 11:30 AM EST Jenny Vázquez MD LAB BLOOD ORDERABLES Final Resul t Performing Organization Address City/[facility] Co de Phone Number [facility] [address] [place] [phone] * Albumin, Random Urine W/Creatinine (06/07/2024 10:46 AM EST) Creatinine, Urine 93.36 mg/dL [facility] Microalbumin Urine <5.0 mg/L [facility] Microalbum Creatinine Ratio Ur TNP <30 ug/mg cr [facility] Comment:Unable to calculate albumin/creatinine ratio due to lowmicroalbumin or creatinine result. Urine 06/07/2024 10:4 6 AM EST 06/07/2024 11:32 AM EST Jenny Vázquez MD LAB URINE ORDERABLES Final Resul t Performing Organization Address City/[facility]/ZIP Co de Phone Number [facility] [address] [place] [phone] * BI Mammogram Screening Tomosynthesis Bilateral (02/12/2024 2:03 PM EDT) Anatomical Region Laterality Modality Breast Bilateral Mammography 02/12/2024 2:03 PM EDT Narrative 02/22/2024 7:44 PM EST [facility] [address] [place] [address] [place] [address] Mammography Report Signed Patient: Araseli Leary MR#: [id number] : 1955 Acct:[id number] Age/Sex: 69 / F ADM Date: 02/12/24 Loc: HO.MAMMO Attending Dr: Jenny Vázquez MD Ordering Physician: Jenny Vázquez MD Results: 1Negative Date of Service: 02/12/24 Follow Up: 1 Year From Orig inal Mammogram Procedure(s): MM tomosynthesis screening BI Accession Number(s): [id number] cc: Jenny Vázquez MD EXAMINATION: MM SCREENING [...] DO in OV> 02/22/241940 DD/ 02 TD/TT: 02/12/24 140 Operations Administrator: Procedure Note Donotuseinterpreter, Image - 02/22/2024 [facility] [address] [place], [place] [address] Mammography Report Signed Patient: Jose M Leary#: [id number] : 6Acct:[id number] Age/Sex: 69 / FADM Date: 02/12/24 Loc: HO.MAMMO Attending Dr: Jenny Vázquez MD Ordering Physician: Jenny Vázquez MDResults: 1Negative Date of Service: 02/12/24Follow Up: 1 Year From Orig ina Mammogram Procedure(s): MM tomosynthesis screening BI Accession Number(s): [id number] cc: Jenny Vázquez MD EXAMINATION: MM SCREENING [...] in OV> 02/22/241940 DD/ 02 TD/TT: 02/12/241402 Operations Administrator: Jenny Vázquez MD IMG BI PROCEDURES Edited Result - Final * Hm Diabetes Eye Exam (03/03/2023) Eye Exam Normal Normal Historical Provider HEALTH MAINTENANCE Final Result * Colonoscopy (12/09/2016) Colonoscopy Normal Normal 12/09/2016 Kerrisavannah Alejo HEALTH MAINTENANCE Final Result from Last 3 Months or Most Recently Relevant to Health Maintenance Insurance HSN FULL [employer] MEDICARE REPLACEMENT DENTAL - HSN FULL (MEDICAID) [address] [place] [address] [address] [place] [address] Care Teams [employer] Operator Relationship Specialty Start Date End Date Jenny Vázquez MD [address] [place] [phone] PCP - General Family Medicine 04/13/18
--- OUTSIDE RECORDS SUMMARY | 2024-12-06 15:56 | XMS_ITS | Encounter Summary ---
Author Organization [employer] Address [address] [facility] [address]t [place] [address] Care Team Providers Care Help Desk Supervisor Name Role Phone Jenny Vázquez MD Primary Care Provider [phone] Encounter Details Date Type Department Care Team (Late st Contact Info) Description 03/10/2023 Abstract [facility] [address] [place] [address] Nathanael Crespo DDS [address] [place] [address] Social History Tobacco Use Types Packs/Day Years [...] Office Visit [facility] [address] [place] [address] Marialuisa Parsons documented as of this encounter Visit Diagnoses Not on filedocumented in this encounter Additional Health Concerns Assessment Noted Time PHQ-9 Depression Total Score: 0 10/22/19 23 1:17 PM EDT documented as of this encounter Care Teams Help Desk Supervisor Relationship Specialty Start Date End Date Jenny Vázquez MD [address] [place] [address] PCP - General Family Medicine 04/13/18 documented as of this encounter
--- OUTSIDE RECORDS SUMMARY | 2024-12-06 15:56 | XMS_ITS | Encounter Summary ---
Author Organization [employer] Address [address] [facility] [address] [place] [address] Care Team Providers Care Risk Control Consultant Name Role Phone Jenny Vázquez MD Primary Care Provider [phone] Reason for Visit * Reason Onset Date Comments Med Refill 06/08/2023 Encounter Details Date Type Department Care Team (Late st Contact Info) Description 06/08/[address] [facility] [address] [place] [address] Loyda Clark MD [address] [place] [address] Fibromyalgia Social History Tobacco Use Types Packs/Day Years Used Date Smoking Tobacco: Never Passive Smoke Exposure: Never Smokeless Tobacco: Never Alcohol Use Standard Drinks/Week Comments Never 0 (1 standard drink = 0.6 oz pur e alcohol) Depression Answer Date Recorded Patient Health Questionnaire-9 Score 0 10/21/2022 Housing Stability Answer Date Recorded What is your housing situation today? I have sarika dorothea 01/25/[address] you li [...] 2025 1:00 PM EDT Office Visit [facility] [address] [place] [address] Marialuisa Parsons documented as of this encounter Visit Diagnoses Diagnosis Fibromyalgia Unspecified myalgia and myositis documented in this encounter Additional Health Concerns Assessment Noted Time PHQ-9 Depression Total Score: 0 10/22/19 23 1:17 PM EDT documented as of this encounter Care Teams Risk Control Consultant Relationship Specialty Start Date End Date Jenny Vázquez MD [address] [place] [address] PCP - General Family Medicine 04/13/18 documented as of this encounter
--- OUTSIDE RECORDS SUMMARY | 2024-12-06 15:56 | XMS_ITS | Encounter Summary ---
Author Organization [employer] Address [address] [facility] [address]t [place] [address] Care Team Providers Care Date Puller Name Role Phone Jenny Vázquez MD Primary Care Provider [phone] Reason for Visit * Reason Onset Date Comments Nurse Triage 03/09/2023 Encounter Details Date Type Department Care Team (Late st Contact Info) Description 03/09/2023 Telephone [facility] [address] [place] [address] Jneny Vázquez MD [address] [place] [address] Nurse Triage Social History Tobacco Use Types [...] call Pt reports was seen in [facility] 03/06/23 and tested positive for Covid. Pt [...] needed. Follow up ED visit apt with COAL PASSER Zeinab 03/19/23 @ 115pm. Insurance is verified asactive prior to booking. Protocol Used: COVID-19 - Diagnosed or Suspected (Adult) Protocol-Based Disposition: Home Care Positive Triage Question: * COVID-19 diagnosed by doctor (or [facility]ER/PA) and mild symptoms (e.g., cough, fever, others) and no complications or SOB * All higher-acuity triage questions were negative Care Advice Discussed: * Reassurance and Education - Diagnosed With COVID-19 by Doctor (or [facility] P[facility]ER/PA) and Mild Symptoms * General Care Advice [...] Every Day * Telephone Encounter - Debi Matthew - 03/09/2023 11:22 AM EST Symptoms: Cough, Body Aches Outcome: Schedule an urgent appointment (within 1 hour) or talk to a nurse or provider soon Reason: Wheezing (high-pitched whistling sound), pt was seen at [facility] on 03/06 for asthma. Pt was tested positive for COVID and is still symptomatic. The caller accepted this outcome Please contact pt at [phone] documented in this encounter Plan of Treatment Upcoming Encounters Date Type Department Care Team (Late st Contact Info) Description 2025 1:00 PM EDT Office Visit [facility] ADULT [facility] [address] [place] [address] Marialuisa Parsons documented as of this encounter Visit Diagnoses Not on filedocumented in this encounter Additional Health Concerns Assessment Noted Time PHQ-9 Depression Total Score: 0 10/22/19 23 1:17 PM EDT documented as of this encounter Care Teams Date Puller Relationship Specialty Start Date End Date Jenny Vázquez MD [address] [place] [address] PCP - General Family Medicine 04/13/18 documented as of this encounter
--- OUTSIDE RECORDS SUMMARY | 2024-12-06 15:56 | XMS_ITS | Encounter Summary ---
Author Organization [employer] Address [address] [facility] [address] [place] [address] Care Team Providers Care Recreation Attendant Supervisor Name Role Phone Jenny Vázquez MD Primary Care Provider [phone] Reason for Visit * Reason Comments Med Change Request Encounter Details Date Type Department Care Team (Late st Contact Info) Description 11/23/2024 Refill [facility] [address] [place] [address] Jenny Vázquez MD [address] [place] [address] Social History Tobacco Use Types Packs/Day Years [...] Visit [facility] [address] [place] [address] Marialuisa Parsons documented as of this encounter Visit Diagnoses Not on filedocumented in this encounter Additional Health Concerns Assessment Noted Time PHQ-9 Depression Total Score: 16 025 2:05 PM EST documented as of this encounter Care Teams Recreation Attendant Supervisor Relationship Specialty Start Date End Date Jenny Vázquez MD [address] [place] [address] PCP - General Family Medicine 04/13/18 documented as of this encounter
--- OUTSIDE RECORDS SUMMARY | 2024-12-06 15:56 | XMS_ITS | Encounter Summary ---
Author Organization [employer] Address [address] [facility] [address] [place] [address] Care Team Providers Care Catering Administrative Assistant Name Role Phone Jenny Vázquez MD Primary Care Provider [phone] Reason for Visit * Reason Comments Med Refill Encounter Details Date Type Department Care Team (Late st Contact Info) Description 04/17/2023 Refill [facility] [address] [place] [address] Jenny Vázquez MD [address] [place] [address] Fibromyalgia Social History Tobacco Use Types Packs/Day [...] Description 2025 1:00 PM EDT Office Visit [facility] AD[facility] [address] [place] [address] Marialuisa Parsons documented as of this encounter Visit Diagnoses Diagnosis Fibromyalgia Unspecified myalgia and myositis documented in this encounter Additional Health Concerns Assessment Noted Time PHQ-9 Depression Total Score: 0 10/22/19 23 1:17 PM EDT documented as of this encounter Care Teams Catering Administrative Assistant Relationship Specialty Start Date End Date Jenny Vázquez MD [address] [place] [address] PCP - General Family Medicine 04/13/18 documented as of this encounter
== END 2024-12-06 15:03 | disposition home or self-care (01) ==
LOC: HO.SH 15:02
PROVIDERS: Visit Provider Family Medicine
DX: Z01.118 Encounter for examination of ears and hearing with other abnormal findings (principal); H90.3 Sensorineural hearing loss, bilateral
CPT/HCPCS: 92557

== ENCOUNTER 2024-12-06 16:09 | Outpatient (REF) | payer SELFPAY ==
--- NOTE | 2024-12-06 16:12 | MHC.AU.HA3 ---
Hearing Instrument Follow-Up- Binaural Date of Visit: 12/06/24 Right Ear: Jonathan, Model, Color, Serial Number: Castro Noe P 70-R SN: [id number] Color: Graphite Paige Glass Setter Repair Warranty: 03/18/2025 Glass Setter Loss and Damage Warranty: 03/18/2025 [facility] Service Plan: 01/27/2023 Battery Size: Rechargeable Ferryboat Captain/Slim Tube: 1M Earmold/Dome/CShell/SlimTip:Medium vented dome with retention tail Type of Wax Guard: CeruShield Dispensed By: [facility] Date of Fittin01/27/2022 Left Ear: Jonathan, Model, Color, Serial Number: Castro Noe P 70-R SN: [id number] Color: Graphite Paige Glass Setter Repair Warranty: 03/18/2025 Glass Setter Loss and Damage Warranty: 03/18/2025 [facility] Service Plan: 01/27/2023 Battery Size: Rechargeable [place]erryboat Captain/Slim Tube: 1M Earmold/Dome/CShell/SlimTip: Medium vented dome with retention tail Type of Wax Guard: CeruShield Dispensed By: [facility] Date of Fittin01/27/2022 Follow-Up Summary: Seen for evaluation. Reports hearing aids haven't been working well for the past few months. Cleaned aids, replaced domes and wax guards. Listening check positive. Checked settings, updated targets to current audio, swapped to vented domes. Araseli reports improvement, states hearing aids sound better, hearing more. Recommendations: Recommendations: Hearing instrument follow-up or maintenance as needed. Diagnosis Code(s): Primary Diagnosis: H90.3 Bilateral Sensorineural Hearing Loss Signature: Provider: Chirag Gleason, [facility]
== END 2024-12-06 16:10 | disposition home or self-care (01) ==
LOC: HO.HAP 16:09
PROVIDERS: Visit Provider Family Medicine
DX: Z46.1 Encounter for fitting and adjustment of hearing aid (principal); H90.3 Sensorineural hearing loss, bilateral
CPT/HCPCS: 92593

== ENCOUNTER 2025-01-25 13:46 | Outpatient (AMB) | payer MEDICARE, SELFPAY ==
[2025-01-25 14:16] VITALS: BMI 32.4
--- NOTE | 2025-01-25 14:16 | A.OFFVIS_ITS ---
VS Expanded 01/25/25 14:16 Height 5 ft 3 in Weight 182 lb 12.211 oz BMI 32.4 Intake Visit Reasons: T2DM Allergies peanut Allergy (Severe, Verified 11/16/24 14:55) angioedema lisinopril (LISINOPRIL) Allergy (Intermediate, Verified 11/16/24 14:55) RASH, cough zoster vaccine live (SHINGLES VACCINE) Allergy (Intermediate, Verified 11/16/24 14:55) LOCALIZED REDNESS, SWELLING, FEVER,COUGH latex (LATEX) Allergy (Unknown, Verified 11/16/24 14:55) RASH pineapple (PINEAPPLE) Allergy (Unknown, Verified 11/16/24 14:55) RASH strawberry (STRAWBERRY) Allergy (Unknown, Verified 11/16/24 14:55) RASH adhesive Allergy (Verified 11/16/24 14:55) Blister Nutrition Presentation Details: Pt presents for MNT f/u for T2DM Pt is monitoring bg in fasting state and ranges 80-120 mg Pt reports having low BG when exercising , bg in 60s which she treats by having a fruit or juice Pt will benefit from a glucose sensor due to risk of hypoglycemia. Pt was advised to discuss this with PCP typical meal intake B: varies farina /oatmeal /cheerios with 2% milk , lactaid L/D: meals on wheels meals and sometimes divides it in 1/2 food frequency fish : 2 times/wk fruits: 2/day dairy: 3 /d and choosing also dairy alternative slow in fat vegetables: twice/d beverages: water, milk , low sugar beverages BS Monitoring Most Recent Diabetes Results: Cholesterol, (<200) 130 mg/dL 11/23/24 HDL Cholesterol, (>40) 47 mg/dL 11/23/24 Triglycerides, (<150) 169 mg/dL H 11/23/24 Creatinine, (0.5-1.4) 0.90 mg/dL 11/23/24 BUN, (9-16) 22 mg/dL H 11/23/24 Sodium, (135-145) 141 mmol/L 11/23/24 Potassium, (3.3-5.1) 4.3 mmol/L 11/23/24 Chloride, (96-108) 109 mmol/L H 11/23/24 Carbon Dioxide, (22-29) 25 mmol/L 11/23/24 Calcium, (8.4-10.2) 9.1 mg/dL 11/23/24 AST, (5-31) 34 U/L H 11/23/24 ALT, (0-31) 17 U/L 11/23/24 Total Protein, (6.5-8.0) 6.4 g/dL L 11/23/24 Albumin, (3.5-5.0) 4.0 g/dL 11/23/24 [facility] Medical History (Updated 12/23/24 @ 09:22 by Binta Schumacher, [facility]) Stable angina COVID-19 Palpitation Precordial chest pain Hemorrhoids Abdominal bloating Abdominal cramping Back pain Encounter for monitoring anti-arrhythmic therapy Fracture of proximal phalanx of right ring finger Syncope and collapse Acute non-ST elevation myocardial infarction (NSTEMI) Fracture of lesser tuberosity of right humerus Fracture of proximal end of right humerus Family history of ovarian cancer Early satiety COPD (chronic obstructive pulmonary disease) Cataract GUADALUPE (obstructive sleep apnea) Obesity (BMI 30-39.9) Hemorrhoids with complication GUADALUPE (obstructive sleep apnea) Hemorrhoids with complication NSVT (nonsustained ventricular tachycardia) PVC (premature ventricular contraction) Surgical History History of cardiac cath S/P ablation of ventricular arrhythmia S/P cardiac cath S/P cardiac catheterization History of coronary artery stent placement History of esophagogastroduodenoscopy (EGD) Hx of colonoscopy History of shoulder surgery (~04/29/18) History of lumbar laminectomy Family History Father Cardiovascular disease Mother Osteoarthritis Family/Other Ovarian cancer, Onset Age: 30 Social History Household Members: Spouse Alcohol intake: never Patient Tobacco Use Status: Never used Tobacco service: No Current occupational status: unemployed Current occupation: rt handed Assessment & Plan Assessment & Plan (1) T2DM (type 2 diabetes mellitus): Code(s): E11.9 - Type 2 diabetes mellitus without complications Category: Medical Plan: Wt: 86 Kg ( 07/05 ), 84kg (08/05), 81 kg (11/04), 83kg (02/04) Est kcal needs as per MSJ: 1600 (40% carb, 30% protein/fat) Est fluid needs as per 25-30 ml/d: 2400 Est prot per day as per 1 g/kg bw: 80 Recommend fiber intake : 8-10 g per day and gradually increase to 25-28 g per day for women and 35-38 g for men or as tolerated Recommend sodium intake per day : less than 1500 mg less than 2000 mg Educated patient on: ( R = reviewed V = verbalizes understanding N/R = needs review N/A = not applicable * Food sources of carbohydrate, adequate serving sizes and its role in various health conditions: R * Differences between complex carbohydrates a simple carbohydrates, role of fiber in diet: R,V * Lean protein sources of foods: R * Differences between types of fats and role in diet (mono on saturated fat fatty acids, saturated fatty acids, trans fats): R * Food sources of sodium in salt and healthy modifications for heart health in kidney health: R * Vitamins and minerals: R * Healthy plate method concept: R V * Physical activity: Benefits a precaution: R V * Hypoglycemia protocol (rule of 15): R * Dietary prevention of Hyperglycemia: R Patient Instructions: Switch to fairlife milk , have 1 -2 cups/day CArry glucose tablets to treat low blood sugar following rule of 15 discuss low blood glucose with your PCP for further evaluation - may benefit from glucose sensor due to hypoglycemia Coding Level of Care Code Nutr Indiv Subseq (63668) Diagnoses T2DM (type 2 diabetes mellitus) E11.9 Time Spent (min) 30
--- OUTSIDE RECORDS SUMMARY | 2025-01-25 17:30 | XMS_ITS | Encounter Summary ---
Author Organization [employer] Address 75 [facility] 7t [place] [address] Care Team Providers Care Senior Information Security Engineer Name Role Phone Jenny Vázquez MD Primary Care Provider [phone] Reason for Visit * Reason Onset Date Comments Med Refill 06/08/2023 Encounter Details Date Type Department Care Team (Late st Contact Info) Description 06/08/2023 Refill [facility] [address] [place] [address] Loyda Clark MD [address] [place] [address] Fibromyalgia Social History Tobacco Use Types Packs/Day [...] Care Team (Late st Contact Info) Description 02/14/2025 1:15 PM EST Office Visit [facility] [address] [place] [address] Jenny Vázquez MD [address] [place] [phone] 02/22/2025 1:30 PM EST Office Visit [facility] ADULT DENTAL [address] [place] [address] Nathanael Crespo DDS [address] [place] [address] 07/24/2025 12:45 PM EDT Office Visit [facility] [address] [place] [address] Marialuisa Parsons documented as of this encounter Visit Diagnoses Diagnosis Fibromyalgia Unspecified myalgia and myositis documented in this encounter Additional Health Concerns Assessment Noted Time PHQ-9 Depression Total Score: 0 10/22/19 23 1:17 PM EDT documented as of this encounter Care Teams Senior Information Security Engineer Relationship Specialty Start Date End Date Jenny Vázquez MD [address] [place] [phone] PCP - General Family Medicine 04/13/18 documented as of this encounter
--- OUTSIDE RECORDS SUMMARY | 2025-01-25 17:30 | XMS_ITS | Encounter Summary ---
Author Organization [employer] Address 75 [facility] 7t [place] [address] Care Team Providers Care Vice President [employer] Name Role Phone Jenny Vázquez MD Primary Care Provider [phone] Reason for Visit * Reason Onset Date Comments Nurse Triage 03/09/2023 Encounter Details Date Type Department Care Team (Late st Contact Info) Description 03/09/[address] [facility] [address] [place] [address] Jenny Vázquez MD [address] [place] [address] Nurse Triage Social History Tobacco Use Types [...] Triage call Pt reports was seen in [facility] 03/06/23 and tested positive for Covid. Pt [...] needed. Follow up ED visit apt with POLICY MANAGER Zeinab 03/19/23 @ 115pm. Insurance is verified asactive prior to booking. Protocol Used: COVID-19 - Diagnosed or Suspected (Adult) Protocol-Based Disposition: Home Care Positive Triage Question: * COVID-19 diagnosed by doctor (or POLICY MANAGER/PA) and mild symptoms (e.g., cough, fever, others) and no complications or SOB * All higher-acuity triage questions were negative Care Advice Discussed: * Reassurance and Education - Diagnosed With COVID-19 by Doctor (or POLICY MANAGER/PA) and Mild Symptoms * General Care Advice [...] (high-pitched whistling sound), pt was seen at [facility] on 03/06 for asthma. Pt was tested positive for COVID and is still symptomatic. The caller accepted this outcome Please contact pt at [phone] documented in this encounter Plan of Treatment Upcoming Encounters Date Type Department Care Team (Late st Contact Info) Description 02/14/2025 1:15 PM EST Office Visit [facility] [address] [place] [address] Jenny Vázquez MD [address] [place] [address] 02/22/2025 1:30 PM EST Office Visit [facility] [address] [place] [address] Nathanael Crespo DDS [address] [place] [address] 07/24/2025 12:45 PM EDT Office Visit [facility] [address] [place] [address] Marialuisa Parsons documented as of this encounter Visit Diagnoses Not on filedocumented in this encounter Additional Health Concerns Assessment Noted Time PHQ-9 Depression Total Score: 0 10/22/19 23 1:17 PM EDT documented as of this encounter Care Teams Vice President [employer] Relationship Specialty Start Date End Date Jenny Vázquez MD [address] [place] [address] PCP - General Family Medicine 04/13/18 documented as of this encounter
--- OUTSIDE RECORDS SUMMARY | 2025-01-25 17:30 | XMS_ITS | Encounter Summary ---
Author Organization [employer] Address 75 [facility] 7t [place] [address] Care Team Providers Care Candy Counter Clerk Name Role Phone Jenny Vázquez MD Primary Care Provider [phone] Reason for Visit * Reason Comments Med Refill Encounter Details Date Type Department Care Team (Late st Contact Info) Description 04/17/2023 Refill [facility] [address] [place] [address] Jenny Vázquez MD [address] [place] [address] Fibromyalgia Social History Tobacco Use Types Packs/Day [...] Description 02/14/2025 1:15 PM EST Office Visit [facility] [address] [place] [address] Jenny Vázquez MD [address] [place] [phone] 02/22/2025 1:30 PM EST Office Visit [facility] [address] [place] [address] Nathanael Crespo DDS [address] [place] [address] 07/24/2025 12:45 PM EDT Office Visit [facility] [address] [place] [address] Marialuisa Parsons documented as of this encounter Visit Diagnoses Diagnosis Fibromyalgia Unspecified myalgia and myositis documented in this encounter Additional Health Concerns Assessment Noted Time PHQ-9 Depression Total Score: 0 10/22/19 23 1:17 PM EDT documented as of this encounter Care Teams Candy Counter Clerk Relationship Specialty Start Date End Date Jenny Vázquez MD [address] [place] [phone] PCP - General Family Medicine 04/13/18 documented as of this encounter
--- OUTSIDE RECORDS SUMMARY | 2025-01-25 17:30 | XMS_ITS | Encounter Summary ---
Author Organization [employer] Address 75 [facility] 7t [place] [address] Care Team Providers Care Clerk Analyst Name Role Phone Jenny Vázquez MD Primary Care Provider [phone] Encounter Details Date Type Department Care Team (Late st Contact Info) Description 03/09/2023 Abstract [facility] D[facility] [address] [place] [address] Nathanael Crespo DDS [address] [place] [address] Social History Tobacco Use Types Packs/Day Years [...] Description 02/14/2025 1:15 PM EST Office Visit [facility] [address] [place] [address] eJnny Vázquez MD [address] [place] [address] 02/22/2025 1:30 PM EST Office Visit [facility] [address] [place] [address] Nathanael Crespo DDS [address] [place] [address] 07/24/2025 12:45 PM EDT Office Visit [facility] [address] [place] [address] Marialuisa Parsons documented as of this encounter Visit Diagnoses Not on filedocumented in this encounter Additional Health Concerns Assessment Noted Time PHQ-9 Depression Total Score: 0 10/22/19 23 1:17 PM EDT documented as of this encounter Care Teams Clerk Analyst Relationship Specialty Start Date End Date Jenny Vázquez MD [address] [place] [address] PCP - General Family Medicine 04/13/18 documented as of this encounter
--- OUTSIDE RECORDS SUMMARY | 2025-01-25 17:30 | XMS_ITS | Encounter Summary ---
Author Organization [employer] Address 75 [facility] 7t [place] [address] Care Team Providers Care Coil Taper Name Role Phone Jenny Vázquez MD Primary Care Provider [phone] Encounter Details Date Type Department Care Team (Late st Contact Info) Description 03/10/2023 Abstract [facility] [address] [place] [address] Nathanael Crespo DDS [address] [place] [address] Social History Tobacco Use Types Packs/Day Years [...] Description 02/14/2025 1:15 PM EST Office Visit [facility] [address] [place] [address] Jenny Vázquez MD [address] [place] [address] 02/22/2025 1:30 PM EST Office Visit [facility] [address] [place] [address] Nathanael Crespo DDS [address] [place] [address] 07/24/2025 12:45 PM EDT Office Visit [facility] [address] [place] [address] Marialuisa Parsons documented as of this encounter Visit Diagnoses Not on filedocumented in this encounter Additional Health Concerns Assessment Noted Time PHQ-9 Depression Total Score: 0 10/22/19 23 1:17 PM EDT documented as of this encounter Care Teams Coil Taper Relationship Specialty Start Date End Date Jenny Vázquez MD [address] [place] [address] PCP - General Family Medicine 04/13/18 documented as of this encounter
--- OUTSIDE RECORDS SUMMARY | 2025-01-25 17:30 | XMS_ITS | Encounter Summary ---
Author Organization [employer] Address [address] [place] [address] 7t [place] [address] Care Team Providers Care Maintenance Mechanic Supervisor Name Role Phone Jenny Vázquez MD Primary Care Provider [phone] Encounter Details Date Type Department Care Team (Late st Contact Info) Description 10/31/2022 Abstract [facility] [address] [place] [address] Jenny Vázquez MD [address] [place] [address] Social History Tobacco Use Types Packs/Day Years [...] Description 02/14/2025 1:15 PM EST Office Visit [facility] [address] [place] [address] Jenny Vázquez MD [address] [place] [address] 02/22/2025 1:30 PM EST Office Visit [facility]ULT D[facility] [address] [place] [address] Nathanael Crespo DDS [address] [place] [address] 07/24/2025 12:45 PM EDT Office Visit [facility] [address] [place] [address] Marialuisa Parsons documented as of this encounter Procedures Procedure Name Priority Date/Time Associated Diagnosis Comments PAP/HPV Routine 10/02/2022 documented in this encounter Results * Pap Smear (10/02/2022) Pap Negative for intraephithelial lesion or malignancy Negative for intraephithelial lesion or malignancy, Other HPV Undetected Result [facility] Unassigned Pcp HEALTH MAINTENANCE Final Result documented in this encounter Visit Diagnoses Not on filedocumented in this encounter Additional Health Concerns Assessment Noted Time PHQ-9 Depression Total Score: 0 10/22/19 23 1:17 PM EDT documented as of this encounter Care Teams Maintenance Mechanic Supervisor Relationship Specialty Start Date End Date Jenny Vázquez MD [address] [place] [phone] PCP - General Family Medicine 04/13/18 documented as of this encounter
--- OUTSIDE RECORDS SUMMARY | 2025-01-25 17:30 | XMS_ITS | Encounter Summary ---
Author Organization [employer] Address 75 [facility] 7t [place] [address] Care Team Providers Care Museum Director Name Role Phone Jenny Vázquez MD Primary Care Provider [phone] Reason for Visit * Reason Comments Med Change Request Encounter Details Date Type Department Care Team (Late st Contact Info) Description 11/23/2024 Refill [facility] [address] [place] [address] Jenny Vázquez MD [address] [place] [address] Social History Tobacco Use Types Packs/Day Years [...] Description 02/14/2025 1:15 PM EST Office Visit [facility] [address] [place] [address] Jenny Vázquez MD [address] [place] [address] 02/22/2025 1:30 PM EST Office Visit [facility]ULT [facility] [address] [place] [address] Nathanael Crespo DDS [address] [place] [address] 07/24/2025 12:45 PM EDT Office Visit [facility]ULT [facility] [address] [place] [address] Marialuisa Parsons documented as of this encounter Visit Diagnoses Not on filedocumented in this encounter Additional Health Concerns Assessment Noted Time PHQ-9 Depression Total Score: 16 025 2:05 PM EST documented as of this encounter Care Teams Museum Director Relationship Specialty Start Date End Date Jenny Vázquez MD [address] [place] [address] PCP - General Family Medicine 04/13/18 documented as of this encounter
--- OUTSIDE RECORDS SUMMARY | 2025-01-25 17:30 | XMS_ITS | Encounter Summary ---
Author Organization [employer] Address 75 [facility] 7t [place] [address] Care Team Providers Care Transport Technician Name Role Phone Jenny Vázquez MD Primary Care Provider [phone] Encounter Details Date Type Department Care Team (Late st Contact Info) Description 04/29/2022 Orders Only [facility] [address] [place] [address] Lorraine Arroyo LPN Social History Tobacco Use [...] Description 02/14/2025 1:15 PM EST Office Visit [facility] [address] [place] [address] Jenny Vázquez MD [address] [place] [address] 02/22/2025 1:30 PM EST Office Visit [facility] [address] [facility] [place] [place] [phone] Nathanael Crespo DDS [address] [facility] [place] [phone] 07/24/2025 12:45 PM EDT Office Visit [facility] [address] [facility] [place], [place] [phone] Marialuisa Parsons documented as of this encounter Procedures Procedure Name Priority Date/Time Associated Diagnosis Comments LIPID PANEL, STANDARD Routine 11/05/2022 8:43 AM EDT PAP SMEAR Routine 10/02/2022 3:36 PM EDT documented in this encounter Results * Lipid Panel, Standard (11/05/2022 8:43 AM EDT) Triglycerides 76 mg/dL [facility] Comment:Desirable Triglyceri de: less than 150 mg/dLBorderline High Triglyceride 150-199 mg/dLHigh Triglyceride: 200-499 mg/dLVery High Triglyceride: greater than or equal to 5OO mg/dL Cholesterol 118 mg/dL [facility] Comment:Desirable Cholestero l: less than 200 mg/dLBorderline High Cholesterol: 200-239 mg/dLHigh Cholesterol: greater than 239 mg/dL LDL Cholesterol Calculated 56 mg/dl [facility] Comment:Desirable LDL: less than 100 mg/dLNear Optimal/Above Optimal LDL: 110- 129 mg/dLBorderline High LDL: 130-159 mg/dLHigh LDL: 160-189 mg/dLVery High LDL: greater than or equal to 190 mg/dL HDL Cholesterol 47 mg/dL [facility] Comment:Desirable HDL: great er than 40 mg/dL Note: This HDL assay may give artificially low results in patients with liver disease. 11/05/2022 8:43 AM EDT 11/05/2022 11:40 AM EDT us Jenny Vázquez MD LAB BLOOD ORDERABLES Final Resul t [facility] [address] [place] [address] [phone] * Pap Smear (10/02/2022 3:36 PM EDT) 10/02/2022 3:36 PM EDT 10/06/2022 12:00 PM EDT [facility] - 10/27/2022 10:49 AM EDT ----- ------- Name: Araseli Leary Age/Sex: 67/F : 1955 Unit#: [id number] Attend Dr: Argentina Mak CNM Re10/02/22 Status: REPLACED BY [facility] Location: [facility] Disch: ----- ------- SPEC : [id number] RECD: 10/06/22-1199 STATUS: GABRIELA JAVIER NUM: [id number] TODD: 10/02/22-[address] [facility] [address]: Argentina Mak CNM ENTERED: 10/06/22-1317 SP TYPE: Pap Smr OTHR DR: Jenny Vázquez MD ORDERED: Pap Smear Interpretation Satisfactory for evaluation. Negative for intraepithelial lesion or malignancy. HPV mRNA E6/E7: NOT DETECTED This assay detects E6/E7 viral messenger RNA (mRNA) from 14 high-risk HPV types (16, 18, 31, 33, 35, 39, 45, 51, 52, 56, 58, 59, 66, 68) HPV testing performed by [facility], [place], [place]. See reference laboratory portion of the EMR for entire report. Clinical Information LMP: Menopausal Previous PAP test: 2018, ASCUS Material Received ThinPrep-Cervical Copies To: Argentina Mak [address] [place] [address] Jenny Vázquez MD [address] [place], [place] [phone] ----- ------- Signed (signature on file) Berlin Rodriguez MD 10/27/22 1049 ----- ------- END OF REPORT [facility] External Provider LAB [facility] ORDER[facility]LES Final Result [facility] [address] [place] [address] [phone] documented in this encounter Visit Diagnoses Not on filedocumented in this encounter Care Teams Transport Technician Relationship Specialty Start Date End Date Jenny Vázquez MD [address] [place] [address] PCP - General Family Medicine 04/13/18 documented as of this encounter
--- OUTSIDE RECORDS SUMMARY | 2025-01-25 17:31 | XMS_ITS | Clinical Summary ---
Author Organization [employer] Address [address] [place] [address] [address] [place] [address] Care Team Providers Care Grubber Name Role Phone Jenny Vázquez MD Primary Care Provider [phone] Allergies Active Allergy Reactions Criticality Noted Date Comments Martir Inhibitors 04/21/2022 Ascorbate 02/05/2024 Latex 02/05/2024 Lisinopril Hives 02/18/2023 New Skin 02/05/2024 Peanut Oil 04/21/2022 Peanut-Containing Drug Products 01/12 Pineapple 02/05/2024 Franklin Extract Other 02/08/2024 Zoster Vaccine Live 12/12/2016 [...] complication, without long-term current use of insulin (HCC) Use to test blood sugar once daily 50 each 12 5 11/24/19 26 Active Blood Glucose Monitoring Suppl (ONE TOUCH ULTRA 2) w/Device kitIndications:T ype 2 diabetes mellitus without complication, without long-term current use of insulin (HCC) Use to test blood sugar once daily 1 kit 5 Active Lancets (onetouch ultrasoft) lancetsIndicatio ns:Type 2 diabetes mellitus without complication, without long-term current use of insulin (HCC) 1 each by Other route Once per day. Check blood sugar once daily 360 each 5 11/24/19 26 Active Active Problems Problem Noted Date Diagnosed Date Open fracture of tooth 2025 Dental plaque 2025 Retained dental root 2025 Ganglion cyst of volar aspect of left wrist 10/11 Assessment & Plan (10/24/2024 5:04 AM EDT): - previously seen by [facility]. Surgical excisional biopsy was recommended, but [...] baking, cleaning her home and listening to zoroastrian music. Araseli reports taking medication prescribed by her PCP and having improvements from them. clinician will provide additional support if needed during next medical appointment. Ischemic heart disease 08/05/2022 Assessment & Plan (10/24/2024 5:09 AM EDT): -Manager Packaging: [facility], Dr. Cesar and Janna Cruz, MARCIANO, last seen on 04/18/24 - NSTEMI in [...] discontinued when she was last seen by grounds keeper in Apr 2024. -Continue Metoprolol, ASA and Atorvastatin -Continue isosorbide for antianginal effect. Recently increased dose to 90 mg daily. -Cont working on lifestyle modifications. Assessment & Plan (06/06/2024 3:21 PM EST): -Manager Packaging: Dr. Arsenio TAPIA and Janna Cruz NP, [...] discontinued when she was last seen by grounds keeper in Apr 2024. -Continue Metoprolol, ASA and Atorvastatin -Continue isosorbide -Cont working on lifestyle modifications. Assessment & Plan (02/15/2024 1:39 PM EST): -Manager Packaging: Dr. Arsenio TAPIA, last seen on 01/08/23 [...] Assessment & Plan (01/28/2023 8:56 PM EDT): -Manager Packaging: Dr. Arsenio TAPIA, last seen on 01/08/23 [...] Assessment & Plan (10/28/2022 7:06 AM EDT): -[facility] last seen on 08/05/22; upcoming Pre-Op [...] Assessment & Plan (08/15/2022 6:38 AM EDT): -[facility]aging[facility] appt today - NSTEMI in September2021 [...] on 10/20/22. Being scheduled for Pre-Op with Manager Packaging. Pt needs Cardiac Clearance Before Hemorrhoidectomy. - [...] and normal cap refill. Nonsustained ventricular tachycardia (CMS/HCC) 0 05/29/2017 Assessment & Plan (10/13/2024 10:50 PM [...] (10/24/2024 5:10 AM EDT): - evaluated by pressure vessel inspector - wears hearing aids; needs a new referral Assessment & Plan (02/10/2024 8:13 AM EDT): - evaluated by pressure vessel inspector - wears hearing aids Assessment & Plan (08/15/2022 6:43 AM EDT): - evaluated by pressure vessel inspector - wears hearing aids Type 2 diabetes [...] May 2024, plantar fasciitis, ingrown toenail, sees acid regenerator. -Last microalbumin test: 06/07/24 UACR TNP -Last [...] May 2024, plantar fasciitis, ingrown toenail, sees acid regenerator. -Last microalbumin test: 11/05/22 UACR 4.9; -Last [...] exam: 08/05/22, plantar fasciitis, ingrown toenail, sees acid regenerator. -Last microalbumin test: 11/05/22 UACR 4.9; -Last [...] exam: 08/05/22, plantar fasciitis, ingrown toenail, sees acid regenerator. -Last microalbumin test: 11/05/22 UACR 4.9; -Last [...] exam: 08/05/22, plantar fasciitis, ingrown toenail, sees acid regenerator. -Last microalbumin test: 10/25/18 UACR no microalbuminuria [...] exam: 08/05/22, plantar fasciitis, ingrown toenail, sees acid regenerator. -Last microalbumin test: 10/25/18 UACR no microalbuminuria [...] Plan (08/05/2022 9:28 AM EDT): Seen by grounds keeper, Dr. Cesar, on 01/09/22 for CAD and PVC f/u: -TTE was ordered by Manager Packaging -most recent Holter monitor in Dec 2019 PVC 3%. -09/20/21 Echo LVEF 45-50%, p/s Stent -Continue metoprolol succinate 50 mg TWO tablets daily -Continue BB -Previously flecainide 100 mg BID. d/c d/t hospitalization Fibromyalgia 07/20/2014 Assessment & Plan (06/06/2024 3:28 PM EST): Followed by Functional Tester -Continue Mustapha, use judiciously -Continue staying active Assessment & Plan (02/10/2024 8:12 AM EDT): Followed by Functional Tester -Continue Mustapha, use judiciously -Continue staying active Assessment & Plan (08/05/2022 9:27 AM EDT): Followed by Functional Tester -Continue Mustapha, use judiciously -Continue staying active Allergic rhinitis 03/24/2013 Assessment & Plan (02/15/2024 1:48 PM EST): - continue loratadine and montelukast - following with environmental permitting specialist Assessment & Plan (10/21/2022 2:19 PM EDT): - continue loratadine and montelukast - will check status of referral Assessment & Plan (08/15/2022 6:43 AM EDT): - continue loratadine and montelukast - refer to a new environmental permitting specialist Depressive disorder 03/24/2013 Hypertension 03/24/2013 Assessment [...] & Plan (10/13/2024 10:51 PM EDT): - head transfer clerk changed mask for nasal pillow per patient's request in May 2023 - recommended CPAP use Assessment & Plan (06/06/2024 3:27 PM EST): - head transfer clerk changed mask for nasal pillow per patient's request in May 2023 - recommended CPAP use Assessment & Plan (02/14/2024 5:29 PM EST): - head transfer clerk changed mask for nasal pillow per patient's request in May 2023 - recommended CPAP use Assessment & Plan (01/28/2023 8:51 PM EDT): - continue CPAP Asthma 12/10/2012 Assessment & Plan (10/13/2024 10:50 PM EDT): - Previously followed by Allergy / airport operations specialist : Dr. Ahn - Seen by new head transfer clerk at [facility] in May 2023 - No [...] EST): - Previously followed by Allergy / airport operations specialist : Dr. Ahn - Seen by new head transfer clerk at [facility] in May 2023 - No [...] EST): - Previously followed by Allergy / airport operations specialist : Dr. Ahn - Seen by new head transfer clerk at [facility] in May 2023 - No history of intubation, Hx pneumonia and influenza in Apr 2018 - Severe exacerbation 1 or 2 times / year - Continue Symbicort and Singulair as maintenance. - Continue albuterol HFA / neb prn as rescue. Assessment & Plan (01/28/2023 8:51 PM EDT): - Previously followed by Allergy / airport operations specialist : Dr. Ahn - Seen by new head transfer clerk at [facility] in August 2022 - No history of intubation, Hx pneumonia and influenza in Apr 2018 - Severe exacerbation 1 or 2 times / year - Continue Symbicort and Singulair as maintenance. - Continue albuterol HFA / neb prn as rescue. Assessment & Plan (10/28/2022 6:57 AM EDT): - Previously followed by Allergy / airport operations specialist : Dr. Ahn - Seen by new head transfer clerk at [facility] in August 2022 - No history of intubation, Hx pneumonia and influenza in Apr 2018 - Severe exacerbation 1 or 2 times / year - Continue Symbicort and Singulair as maintenance. - Continue albuterol HFA / neb prn as rescue. Assessment & Plan (08/15/2022 6:29 AM EDT): - Allergy / airport operations specialist : Dr. Ahn, needs a new allergy alignment specialist - No history of intubation, Hx [...] she would like me to call her grounds keeper and try to get a sooner appointment and she said shes fine and can wait. I asked her if she felt safe and she said she did. We discussed her nitroglycerin and when to use it and ED precautions. Differentials: stable vs unstable angina, left sided axillary pain, frequent or high PVC burden. Encounters Date Type Department Care Team Description 2025 12:45 PM EDT Office Visit [facility] [address] [place] [address] Marialuisa Parsons Open fracture of tooth, initial encounter (Primary Dx); Dental plaque; Retained dental root; Dental calculus 01/18/2025 Travel 11/23/2024 Refill [facility] [address] [place] [address] Jenny Vázquez MD Type 2 diabetes mellitus without complication, without long-term current use of insulin ([facility]) 11/23/2024 Refill [facility] [address] [place] [address] Jenny Vázquez MD 10/26/2024 Orders Only GENERIC EXTERNAL DATA DEPARTMENT Provider, Generic External Data from Last 3 Months Immunizations Immunization Administration [...] Sign Reading Time Taken Comments Blood Pressure 150/87 2025 12:52 PM EDT Pulse 82 10/11/2024 2:47 PM [...] Description 02/14/2025 1:15 PM EST Office Visit [facility] [address] [place] [address] Jenny Vázquez MD [address] [place] [address] 02/22/2025 1:30 PM EST Office Visit [facility] [address], [place] [phone] Nathanael Crespo DDS [address], [place] [phone] 07/24/2025 12:45 PM EDT Office Visit [facility] [address] [place] [address] Marialuisa Parsons Health Maintenance Due Date Last Done Comments CT Colonography 1955 FIT DNA/Cologuard 1955 FIT 1955 FOBT 1955 Sigmoidoscopy 1955 Hepatitis C Screening 01/18/1974 RSV Patients and Patients Aged 60 years or older (1 - Risk 60-74 years 1-dose series) 2016 Zoster Vaccines (2 of 3) 01/13/2017 11/18/2016 Depression Monitoring 10/31/2024 05/03/2024, 025 COVID-19 Vaccine ( season) 2024 11/18/2021, 08/04/2020, 07/11/2020 Influenza Vaccine (#1) 2024 , 01/26/2023, 02/18/2022, Additional history exists Alcohol/Substance Use Screening 02/07/2025 02/08/2024 SDOH Screening 02/07/2025 02/08/2024 Eye Exam 03/03/2025 03/03/2023 Diabetes: Hemoglobin A1C 04/13/2025 025, 06/06/2024, 02/08/2024, Additional history exists Diabetes: Urine Protein Screening 06/07/2025 06/07/2024, 11/05/2022, 02/18/2022 Lipid Panel 06/07/2025 06/07/2024, 10/12, 01/09/2022 Dental Oral Exam 07/21/2025 2025, 11/2022, 08/20/2020, Additional history exists Dental Prophylaxis 07/21/2025 2025, 0 04/29/2016, 10/23/2015, Additional history exists Diabetes: Foot Exam 10/11/2025 10/11/2024, 10/11/2024, 10/11/2024, Additional history exists Tobacco Screening 2026 2025 Dental X-Ray: Bitewings 01/20/2026 01/20/20, 02/18/2023, 08/20/2020, Additional history exists Mammogram 02/11/2026 02/12/2024, 01/12, 02/04/2022, Additional history exists Colonoscopy 12/09/2026 12/09/2016 Colorectal Cancer Screening 12/09/2026 Dental X-Ray: Full Mouth 01/21/2028 2025, 08/11 DTaP/Tdap/Td Vaccines (3 - Td or Tdap) [...] Procedure Name Priority Date/Time Associated Diagnosis Comments CASE PRESENTATION, DETAILED AND EXTENSIVE TREATMENT PLANNING Routine 2025 12:45 PM EDT ORAL HYGIENE INSTRUCTIONS Routine 2025 12:45 PM EDT Dental plaque Dental calculus PROPHYLAXIS - ADULT Routine 2025 1 2:45 PM EDT Dental plaque Dental calculus INTRAORAL - COMPLETE SERIES OF RADIOGRAPHIC IMAGES Routine 2025 12:45 PM EDT PERIODIC ORAL EVALUATION - ESTABLISHED PATIENT Routine 2025 12:45 PM EDT AMB REFERRAL TO AUDIOLOGY Routine 12/06/2024 Mixed conductive and sensorineural hearing loss, bilateral BASIC METABOLIC PANEL Routine 10/26/2024 3:12 PM EDT PROTHROMBIN TIME-INR Routine 10/26/2024 3:12 PM EDT CBC Routine 10/26/2024 3:12 PM EDT POCT GLYCOSYLATED HEMOGLOBIN (HGB A1C) Routine 10/11/2024 4:08 PM EDT Type 2 diabetes mellitus without complication, without long-term current use of insulin ([facility]) ALBUMIN, RANDOM URINE W/CREATININE Routine 06/07/2024 10:46 AM EST Type 2 diabetes mellitus without complication, without long-term current use of insulin ([facility]) Primary hypertension LIPID PANEL WITH REFLEX TO DIRECT LDL Routine 06/07/2024 10:46 AM EST Dyslipidemia BI MAMMOGRAM SCREENING TOMOSYNTHESIS BILATERAL Routine 02/12/2024 2:03 PM EDT DIABETES EYE EXAM Routine 03/03/2023 COLONOSCOPY Routine 12/09/2016 from Last 3 Months or Most Recently Relevant to Health Maintenance Results * Referral to Audiology (12/06/2024) us Jenny Vázquez MD OUTPATIENT REFERRAL ORDERABLES F inal Result * Prothrombin Time-INR (10/26/2024 3:12 PM EDT) Pathologist [facility] Prothrombin Time 11.9 10.9 - 12.4 SEC [facility] INTERNATIONAL NORM RATIO 1.0 0.9 - 1.1 [facility] Comment:INTERNATIONAL NORMAL IZED RATIO (INR) [...] Provider LAB BLOOD ORDERAB LES Final Result [facility] [address] [place] [phone] * (ABNORMAL) CBC (10/26/2024 3:12 PM EDT) Pathologist [facility] White Blood Count 11.1(H) 4.8 - 10.8 X10*3/uL [facility] Red Blood Count 4.70 4.20 - 5.50 X10*6/uL [facility] Hemoglobin 12.8 12.0 - 16.0 g/dl [facility] Hematocrit 40.8 37.0 - 47.0 % [facility] Mean Corpuscular Volume 86.8 80.0 - 98.0 fL [facility] Mean Corpuscular Hemoglobin 27.2 27.0 - 33.0 pg [facility] Mean Corpuscular HGB Conc 31.4 31.0 - 35.0 g/dl [facility] Red Cell Distribution Width 14.8 11.0 - 16.0 % [facility] Platelet Count 260 160 - 400 X10*3/uL [facility] Mean Platelet Volume 10.4 9.4 - 12.3 fL [facility] NRBC Pct Auto 0.0 0.0 - 0.2 /100WBC [facility] NRBC Abs Auto 0.000 0.0 - 0.012 X10*3/uL [facility] 10/26/2024 3:12 PM EDT 10/26/2024 3:12 PM EDT us Generic External Data Provider LAB BLOOD ORDERAB LES Final Result Performing Organization Address [facility] de Phone Number [facility] [address] [place] [phone] * (ABNORMAL) Basic Metabolic Panel (10/26/2024 3:12 PM EDT) Sodium 142 135 - 145 mmol/L [facility] Potassium 4.4 3.3 - 5.1 mmol/L [facility] Chloride 108 96 - 108 mmol/L [facility] Carbon Dioxide 29 22 - 29 mmol/L [facility] Anion Gap 9(L) 12 - 20 [facility] Urea Nitrogen (BUN) 17(H) 9 - 16 mg/dL [facility] Creatinine, Serum 1.02 0.5 - 1.4 mg/dL [facility] Estimated Glomerular Filt Rate 54 [facility] Comment:Chronic Kidney Disea se: Estimated GFR < 60 mL/min/1.38o9Jdmaxg Kidney Disease: Estimated GFR < 15 mL/min/1.73m2 Glucose 80 60 - 115 mg/dL [facility] Calcium 8.9 8.4 - 10.2 mg/dL [facility] 10/26/2024 3:12 PM EDT 10/26/2024 3:12 PM EDT us Generic External Data Provider LAB BLOOD ORDERAB LES Final Result Performing Organization Address City/[facility] Co de Phone Number [facility] [address] [place] [address] [phone] * (ABNORMAL) POCT glycosylated hemoglobin (Hgb A1c) (10/11/2024 4:08 PM EDT) Hemoglobin A1C 6.1(A) 4.0 - 5.7 % QC Media Lot # [id number] Lot# Expiration Date Blood Capillary blood specimen / Unknown 10/11/2024 4:08 PM EDT Jenny Vázquez MD POINT OF CARE TEST ENTER/EDIT OR DERABLES Final Result * Lipid Panel with Reflex to Direct LDL (06/07/2024 10:46 AM EST) Triglycerides 106 <150 mg/dL [facility] Comment:Desirable Triglyceri de: less than 150 mg/dLBorderline High Triglyceride 150-199 mg/dLHigh Triglyceride: 200-499 mg/dLVery High Triglyceride: greater than or equal to 5OO mg/dL Cholesterol 121 <200 mg/dL [facility] Comment:Desirable Cholestero l: less than 200 mg/dLBorderline High Cholesterol: 200-239 mg/dLHigh Cholesterol: greater than 239 mg/dL LDL Cholesterol Calculated 56 <100 mg/dL [facility] Comment:Desirable LDL: less than 100 mg/dLNear Optimal/Above Optimal LDL: 110- 129 mg/dLBorderline High LDL: 130-159 mg/dLHigh LDL: 160-189 mg/dLVery High LDL: greater than or equal to 190 mg/dL HDL Cholesterol 44 >40 mg/dL [facility] Comment:Desirable HDL: great er than 40 mg/dL Note: This HDL assay may give artificially low results in patients with liver disease. Blood 06/07/2024 10:4 6 AM EST 06/07/2024 11:30 AM EST Jenny Vázquez MD LAB BLOOD ORDERABLES Final Resul t [facility] [address] [place] [address] [phone] * Albumin, Random Urine W/Creatinine (06/07/2024 10:46 AM EST) Creatinine, Urine 93.36 mg/dL [facility] Microalbumin Urine <5.0 mg/L [facility] Microalbum Creatinine Ratio Ur TNP <30 ug/mg cr [facility] Comment:Unable to calculate albumin/creatinine ratio due to lowmicroalbumin or creatinine result. Urine 06/07/2024 10:4 6 AM EST 06/07/2024 11:32 AM EST us Jenny Vázquez MD LAB URINE ORDERABLES Final Resul t [facility] [address] [place] [address] [phone] * BI Mammogram Screening Tomosynthesis Bilateral (02/12/2024 2:03 PM EDT) Anatomical Region Laterality Modality Breast Bilateral Mammography 02/12/2024 2:03 PM EDT Narrative 02/22/2024 7:44 PM EST [address] [place] [address] Mammography Report Signed Patient: Araseli Leary MR#: [id number] : 1955 Acct:[id number] Age/Sex: 69 / F ADM Date: 02/12/24 Loc: [facility] Attending Dr: Jenny Vázquez MD Ordering Physician: Jenny Vázquez MD Results: 1Negative Date of Service: 02/12/24 Follow Up: 1 Year From Orig ina Mammogram Procedure(s): MM tomosynthesis screening BI Accession Number(s): [id number] cc: Jenny Vázquez MD EXAMINATION: MM SCREENING [...] by: Celine Mendez DO 02/22/2024 07:41 PM [facility] Dictated By: Celine Mendez DO Signed By: <Electronically signed by Celine Mendez DO in OV> 02/22/241940 DD/ 02 TD/TT: 02/12/241402 Vocational Trainer: Procedure Note Donotuseinterpreter, Image - [facility]/22/[facility] [address] [place] [address] Mammography Report Signed Patient: Jose M Leary#: [id number] : 1955cct:[id number] Age/Sex: 69 / FADM Date: 02/12/24 Loc: [facility] Attending Dr: Jenny Vázquez MD Ordering Physician: Jenny Vázquez MDResults: 1Negative Date of Service: 02/12/24Follow Up: 1 Year From Orig ina Mammogram Procedure(s): MM tomosynthesis screening BI Accession Number(s): [id number] cc: Jenny Vázquez MD EXAMINATION: MM SCREENING [...] in OV> 02/22/241940 DD/ 02 TD/TT: 02/12/241402 Vocational Trainer: Jenny Vázquez MD IMG BI PROCEDURES Edited Result - Final * Diabetes Eye Exam (03/03/2023) Eye Exam Normal Normal Historical Provider HEALTH MAINTENANCE Final Result * Colonoscopy (12/09/2016) Colonoscopy Normal Normal 12/09/2016 Kerri Alejo HEALTH MAINTENANCE Final Result from Last 3 Months or Most Recently Relevant to Health Maintenance Insurance [facility] FULL [employer] MEDICARE REPLACEMENT DENTAL - AET[employer] DENTAL PPO Care Teams Grubber Relationship Specialty Start Date End Date Jenny Vázquez MD [address] [place] [address] PCP - General Family Medicine 04/13/18
--- OUTSIDE RECORDS SUMMARY | 2025-01-25 17:31 | XMS_ITS | Encounter Summary ---
Author Organization [employer] Address [address] [facility] [address] [place] [address] Care Team Providers Care International Project Manager Name Role Phone Jenny Vázquez MD Primary Care Provider [phone] Encounter Details Date Type Department Care Team (Late st Contact Info) Description 12/30/2023 Orders Only [facility] [address] [place] [address] Jenny Vázquez MD [address] [place] [address] Primary hypertension (Primary Dx); Dyslipidemia; Fibromyalgia Social [...] Description 02/14/2025 1:15 PM EST Office Visit [facility] [address] [place] [phone] Jenny Vázquez MD [address] [place] [phone] 02/22/2025 1:30 PM EST Office Visit [facility] [address] [place] [address] Nathanael Crespo DDS [address] [place] [address] 07/24/2025 12:45 PM EDT Office Visit [facility] [address] [place] [address] Marialuisa Parsons documented as of this encounter Visit Diagnoses Diagnosis Primary hypertension- Primary Unspecified essential hypertension Dyslipidemia Other and unspecified hyperlipidemia Fibromyalgia Unspecified myalgia and myositis documented in this encounter Additional Health Concerns Assessment Noted Time PHQ-9 Depression Total Score: 0 10/22/19 23 1:17 PM EDT documented as of this encounter Care Teams International Project Manager Relationship Specialty Start Date End Date Jenny Vázquez MD [address] [place] [phone] PCP - General Family Medicine 1/1/19 documented as of this encounter
== END 2025-01-25 15:00 | disposition home or self-care (01) ==
LOC: HO.ENCR 13:46
PROVIDERS: PCP Family Medicine; Visit Provider Dietitian, Registered
DX: E11.9 Type 2 diabetes mellitus without complications (principal)

== ENCOUNTER → 2025-01-25 13:46 | Outpatient (BNVA) | payer MEDICARE, SELFPAY | PROVIDERS: PCP Family Medicine; Visit Provider Dietitian, Registered | DX: E11.9 Type 2 diabetes mellitus without complications (principal) | CPT/HCPCS: 97803 ==

== ENCOUNTER 2025-02-24 14:05 | Outpatient (AMB) | payer MEDICARE, SELFPAY ==
--- NOTE | 2025-02-24 14:12 | A.OFFVIS_ITS ---
Vital Signs 02/24/25 14:13 Height 5 ft 3 in Weight 184 lb 4.903 oz BMI 32.6 BMI Reason not done Patient refused/unable BP 120/56 L Blood Pressure Location Lt brachial Position Sitting Pulse 70 Pulse Source Monitor Intake Visit Reasons: F/u Chest pain Ehs Specialist Required: No Accompanied by: Spouse Allergies peanut Allergy (Severe, Verified 02/24/25 14:15) angioedema lisinopril (LISINOPRIL) Allergy (Intermediate, Verified 02/24/25 14:15) RASH, cough zoster vaccine live (SHINGLES VACCINE) Allergy (Intermediate, Verified 02/24/25 14:15) LOCALIZED REDNESS, SWELLING, FEVER,COUGH latex (LATEX) Allergy (Unknown, Verified 02/24/25 14:15) RASH pineapple (PINEAPPLE) Allergy (Unknown, Verified 02/24/25 14:15) RASH strawberry (STRAWBERRY) Allergy (Unknown, Verified 02/24/25 14:15) RASH adhesive Allergy (Verified 02/24/25 14:15) Blister Medication List - Last Reconciled 02/24/25 by Koko Parikh NP albuterol sulfate 90 mcg/actuation (ProAir HFA) 2 puffs PO Q4H aspirin 81 mg PO DAILY atorvastatin 80 mg PO BEDTIME benzonatate 200 mg PO TID PRN 5 days fluticasone propionate 50 mcg/actuation 2 sprays intranasal DAILY hydrocortisone 1% 1 appl KS TID isosorbide mononitrate ER 60 mg PO DAILY lidocaine 5% 1 appl topical DAILY PRN loratadine 10 mg PO BEDTIME metoclopramide HCl (Reglan) 5 mg PO QIDACHS metoprolol succinate ER 75 mg (1.5 x 50 mg) PO QAM nitroglycerin 0.4 mg sublingual Q5M PRN pantoprazole 40 mg PO QAM pregabalin (Lyrica) 50 mg PO BID semaglutide (Ozempic) mg subcut simethicone 180 mg PO QID 30 days Held on 08/03/24. Instructions: pt has too much sodium,potassium,mag sulfates 17.5-3.13-1.6 gram (Suprep Bowel Prep Kit) 480 mL orally; FOR COLONOSCOPY PREP tiotropium bromide 1.25 mcg/actuation (Spiriva Respimat) 2 puffs inhalation DAILY HPI Comments Details: This is a 70-year-old female patient coming in for a follow-up visit for evaluation of ongoing chest discomfort, accompanied by her . Patient with history of coronary artery disease status post prior PCI to LAD, RCA, and OM1 in 2022, PVCs status post ablation, left bundle branch block, and sleep apnea. Patient has been reporting some chest discomfort for which patient had underwent another cardiac catheterization with Dr. Fuentes on 11/08/2024 that revealed patent stents with 40-50% stenosis in the ostial circumflex unchanged from her prior previous cardiac catheterization. Following that, patient has been doing well until recently patient has started getting some chest pain with exertion at the cardiac rehab. Today, patient is reporting intermittent chest discomfort with exertion that improves with rest. Patient is otherwise denying any palpitations, dizziness, orthopnea, PND, leg edema, presyncope or syncope. Patient is reporting compliance with all her medications. [facility] Medical History Stable angina COVID-19 Palpitation Precordial chest pain Hemorrhoids Abdominal bloating Abdominal cramping Back pain Encounter for monitoring anti-arrhythmic therapy Fracture of proximal phalanx of right ring finger Syncope and collapse Acute non-ST elevation myocardial infarction (NSTEMI) Fracture of lesser tuberosity of right humerus Fracture of proximal end of right humerus Family history of ovarian cancer Early satiety COPD (chronic obstructive pulmonary disease) Cataract GUADALUPE (obstructive sleep apnea) Obesity (BMI 30-39.9) Hemorrhoids with complication NSVT (nonsustained ventricular tachycardia) PVC (premature ventricular contraction) Surgical History History of cardiac cath S/P ablation of ventricular arrhythmia S/P cardiac cath S/P cardiac catheterization History of coronary artery stent placement History of esophagogastroduodenoscopy (EGD) Hx of colonoscopy History of shoulder surgery (~04/29/18) History of lumbar laminectomy Family History Father Cardiovascular disease Mother Osteoarthritis Family/Other Ovarian cancer, Onset Age: 30 Social History Household Members: Spouse Alcohol intake: never Patient Tobacco Use Status: Never used Tobacco service: No Current occupational status: unemployed Current occupation: rt handed Review of Systems Const Denies daytime sleepiness, Denies difficulty sleeping, Denies snoring, Denies stops breathing during sleep and Denies weakness Card Reports chest pain, Denies rapid heart rate, Denies irregular heart rhythm, Denies claudication, Denies leg edema, Denies lightheadedness, Reports palpitations, Denies dyspnea, Denies dyspnea on exertion, Denies orthopnea, Denies paroxysmal nocturnal dyspnea and Denies slow heart rate Resp Denies cough, Denies dyspnea, Denies dyspnea on exertion and Denies snoring GI Reports no additional complaints, Denies hematochezia, Denies change in stool character and Denies dyspepsia Musc Denies abnormal gait, Denies muscle weakness and Denies numbness Neuro Denies abnormal gait, Denies numbness and Denies weakness Endo Reports palpitations Physical Exam Vital Signs: Last Vital Signs Pulse 70 02/24/25 14:13 BP 120/56 L 02/24/25 14:13 BMI result Body Mass Index 32.6 Const General: cooperative, healthy appearing, comfortable and no acute distress Orientation/consciousness: patient oriented x3 HEENT Head: Yes normal to inspection Neck Neck: Yes normal visual inspection, Yes trachea midline and Yes supple Chest Chest palpation & inspection: normal inspection of the chest Resp Effort & Inspection: normal respiratory effort Auscultation: clear to auscultation bilaterally, no crackles, no rales, no rhonchi and no wheezes Cardio Jugular venous distension: no JVD Palpation: normal PMI Rate: regular rate Rhythm: regular rhythm Heart sounds: S1 normal heart sound present, S2 normal heart sound present, no click, no gallops, no murmurs and no rubs Peripheral pulses: Peripheral pulses 2+ throughout GI Inspection: Yes normal to inspection Palpation (GI): Soft to palpation Auscultation: normal bowel sounds Skin General skin exam: no rashes or lesions noted Neuro General: patient oriented x3 Extrem General: Yes normal to inspection, No no pedal edema and No calf tenderness Psych Appearance: grossly normal Mental Status: mental status grossly normal Speech and movement: Normal speech and movement present Office Procedures EKG Details: EKG today shows sinus rhythm with a first-degree AV block, rate 70 beats per minute, KS interval 266 milliseconds, occasional PAC, left bundle branch block, nonspecific [place]-T, [place]. [id number], Complete Assessment & Plan Assessment & Plan (1) Status post cardiac catheterization: Code(s): Z98.890 - Other specified postprocedural states Plan: History of PCI in the LAD, RCA, and OM1 in 2022. Due to reports of exertional chest pain, patient underwent a cardiac catheterization with Dr. Fuentes on 11/08/2024 that showed patent stents in the proximal to distal RCA, lad, LCX. Also showed 40-50% stenosis in the ostial circumflex unchanged from her previous cardiac catheterization. Patient was going to her cardiac rehab regularly until recently patient started developing chest discomfort with exertion and is no longer going there at this time. Patient states that at the cardiac rehab she was given 2 nitro pills after which her symptoms resolved. Patient has not had to take nitroglycerin at home however she does so get exertional chest pain. Reviewed the case in detail with Dr. Fuentes given most recent cardiac catheterization with him. We decided to medically manage the patient. Continue aspirin therapy. Continue isosorbide metoprolol. We will increase the isosorbide to 120 mg daily. Advised to monitor blood pressures at home. Continue with high-dose statin therapy. We will bring the patient back in 2 weeks for a blood pressure check with the nurse. Discussed with the patient that if patient continues to have exertional chest pain on this regimen then patient may need Ranexa, as suggested by Dr. Fuentes. Patient in agreement of plan. (2) Atherosclerotic cardiovascular disease: Code(s): I25.10 - Atherosclerotic heart disease of pala coronary artery without angina pectoris Category: Medical Plan: As above. (3) Stented coronary artery: Code(s): Z95.5 - Presence of coronary angioplasty implant and graft Category: Surgical Plan: As above. (4) LBBB (left bundle branch block): Code(s): I44.7 - Left bundle-branch block, unspecified Category: Medical Plan: Chronic left bundle branch block. Clinically stable. Continue to monitor. (5) PVC (premature ventricular contraction): Code(s): I49.3 - Ventricular premature depolarization Category: Medical Plan: History of symptomatic PVCs status post ablation in 2023. Continue metoprolol therapy. (6) GUADALUPE (obstructive sleep apnea): Code(s): G47.33 - Obstructive sleep apnea (adult) (pediatric) Category: Medical Plan: Continue CPAP therapy. Advised heart healthy diet, med compliance, and aggressive management of vascular risk factors. We can continue to hold off on cardiac rehab at this time until patient is stable in the medications. Follow up in 1 month. In the interim, patient will call the office with any concerns or change in symptoms. Advised to seek ER care in case of exertional chest pain not resolved with rest. This note was generated using voice recognition software. While every effort has been made to ensure accuracy and proper chemist assistant, there may be occasional errors that could affect the content or meaning of the described symptoms. Orders: Orders AMB EKG-In Office Today R07.89 - Other chest pain Medications: New isosorbide mononitrate ER 120 mg PO DAILY 90 tabs 0RF Discontinued isosorbide mononitrate ER Discontinued Reason: Doctor's Order 60 mg PO DAILY 90 tabs 3RF Coding Level of Care Code Est Pt Level 4 (15335) Complex EM visit Add On G2211 Diagnoses Status post cardiac catheterization Z98.890 Atherosclerotic cardiovascular disease I25.10 Stented coronary artery Z95.5 LBBB (left bundle branch block) I44.7 PVC (premature ventricular contraction) I49.3 GUADALUPE (obstructive sleep apnea) G47.33 CPT Codes EKG - CPT: 10511-[id number], Complete ([id number]) Time Spent (min) 35 Comment Time spent in reviewing the chart, test results, assessment, counseling and documentation.
[2025-02-24 14:13] VITALS: BP 120/56; PULSE 70; BMI 32.6
== END 2025-02-24 14:43 | disposition home or self-care (01) ==
LOC: HO.HCS 14:06
DX: Z98.890 Other specified postprocedural states (principal); I25.10 Atherosclerotic heart disease of native coronary artery without angina pectoris; Z95.5 Presence of coronary angioplasty implant and graft; I44.7 Left bundle-branch block, unspecified; I49.3 Ventricular premature depolarization; G47.33 Obstructive sleep apnea (adult) (pediatric)
CPT/HCPCS: 93010; 99214; G2211

== ENCOUNTER → 2025-02-24 14:05 | Outpatient (BNVA) | payer MEDICARE, SELFPAY | DX: I25.10 Atherosclerotic heart disease of native coronary artery without angina pectoris (principal); I44.7 Left bundle-branch block, unspecified; Z95.5 Presence of coronary angioplasty implant and graft; I49.3 Ventricular premature depolarization; G47.33 Obstructive sleep apnea (adult) (pediatric); Z99.89 Dependence on other enabling machines and devices; R07.89 Other chest pain | CPT/HCPCS: 93005; 99212 ==

== ENCOUNTER 2025-02-28 07:28 | Day surgery (SDC) | payer MEDICARE, SELFPAY ==
--- OUTSIDE RECORDS SUMMARY | 2025-02-14 13:15 | XMS_ITS | Encounter Summary ---
Author Organization [employer] Address [address] [facility] 7t [place] [address] Care Team Providers Care Marine Pipe Welder Name Role Phone Jenny Vázquez MD Primary Care Provider [phone] Encounter Details Date Type Department Care Team (Late st Contact Info) Description 02/14/2025 1:15 PM EST Office Visit [facility] [address] [place] [address] Jenny Vázquez MD [address] [place] [address] Primary hypertension (Primary Dx); Ischemic heart disease; Nonsustained ventricular tachycardia (CMS/HCC) (HCC); Dyslipidemia; Type 2 diabetes mellitus without complication, without long-term current use of insulin (HCC); Fibromyalgia; Encounter for immunization Social History Tobacco Use Types Packs/Day Years [...] Access Q2 Not on file 02/08/2024 Comments No Sex and Gender Information Value Date Recorded Sex Assigned at Female 02/10/2022 10:20 AM EDT Legal Sex Female 10:20 AM EDT Gender Identity Female 02/10/2022 10:20 AM EDT Sexual Orientation Straight 02/10/2022 10 :20 AM EDT documented as of this encounter Last Filed Vital Signs Vital Sign Reading Time Taken Comments Blood Pressure 126/70 02/14/2025 1:23 PM EST Pulse 80 02/14/2025 1:23 PM EST Temperature 36.3 C (97.3 F) 02/14/2025 1:23 PM EST Respiratory Rate 20 02/14/2025 1:23 PM EST Oxygen Saturation 97% 02/14/2025 1:23 PM EST Inhaled Oxygen Concentration - - Weight 84.4 kg (186 lb 2 oz) 02/14/2025 1:23 PM EST Height 160 cm (5' 3 ) 02/14/2025 1:23 PM EST Body Mass Index 32.97 02/14/2025 1:23 PM EST documented in this encounter Miscellaneous Notes * Assessment & Plan Note - Lorraine Nash MA - 02/14/2025 9:37 AM ESTAssociated Problem(s): Type 2 diabetes mellitus (HCC) A1c 6.1% on 10/11/24, improved from 6.3 [...] 2024, plantar fasciitis, ingrown toenail, sees agricultural specialist. -Last microalbumin test: 06/07/24 UACR TNP -Last lipid profile: 06/07/24 TC 121; TG 106; HDL 44; LDL 56 -Last dental exam: up-to-date; upcoming in APR 2022 * Assessment & Plan Note - Lorraine Nash MA - 02/14/2025 9:37 AM ESTAssociated Problem(s): Nonsustained ventricular tachycardia (CMS/HCC) (HCC) - previously on Fleicanide, which was changed [...] PVCs. * Assessment & Plan Note - Lorraine Nash MA - 02/14/2025 9:36 AM ESTAssociated Problem(s): Ischemic heart disease -Natural Sciences Department Chair: [facility], Dr. Cesar and Janna Cruz NP, last [...] discontinued when she was last seen by draw hand in Apr 2024. -Continue Metoprolol, ASA and Atorvastatin -Continue isosorbide for antianginal effect. Recently increased dose to 90 mg daily. -Cont working on lifestyle modifications. * Assessment & Plan Note - Lorraine Nash MA - 02/14/2025 9:35 AM ESTAssociated Problem(s): Hypertension - Goal BP < 130/80 per ACC/AHA - BP at goal -Continue Metoprolol 100 mg daily -Continue Lifestyle modifications -Continue monitoring BP at home -Previously tried ARB, ACEI, and HCTZ -Discontinued ACEI due to cough -Follow up in 3-6 mo or sooner prn * Assessment & Plan Note - Lorraine Nash MA - 02/14/2025 9:34 AM ESTAssociated Problem(s): Dyslipidemia Last lipid profile: 06/07/24 TC 121; TG 106; HDL 44; LDL 56 Current medication: atorvastatin 80 mg qhs Tx Hx: -Pt previously c/o myalgia using atorvastatin which was changed to pravastatin, switched back to atorvastatin d/t NSTEMI and tolerating at this time documented in this encounter Plan of Treatment Upcoming Encounters Date Type Department Care Team (Late st Contact Info) Description 02/22/2025 1:30 PM EST Office Visit [facility] [address] [place] [address] Nathanael Crespo DDS [address] [place] [address] 07/24/2025 12:45 PM EDT Office Visit [facility] [address] [place] [address] Marialuisa Parsons documented as of this encounter Procedures Procedure Name Priority Date/Time Associated Diagnosis Comments POCT GLYCATED HEMOGLOBIN, TOTAL Routine 02/14/2025 1:30 PM EST Type 2 diabetes mellitus without complication, without long-term current use of insulin (HCC) POCT GLUCOSE Routine 02/14/2025 1:28 PM EST Type 2 diabetes mellitus without complication, without long-term current use of insulin (HCC) documented in this encounter Results * (ABNORMAL) POCT Hgb A1c (02/14/2025 1:30 PM EST) Hemoglobin A1C 6.0(A) 4.0 - 5.7 % QC Media Lot # [id number] Lot# Expiration Date [id number] Blood 02/14/2025 1:30 PM EST us Jenny Vázquez MD POINT OF CARE TEST ENTER/EDIT OR DERABLES Final Result * POCT Glucose (02/14/2025 1:28 PM EST) Glucose Blood, POC 156 60 - 200 mg/dL QC Media Lot # [id number] Lot# Expiration Date [id number] Blood Capillary blood specimen / Unknown 02/14/2025 1:28 PM EST us Jenny Vázquez MD POINT OF CARE TEST ENTER/EDIT OR DERABLES Edited Result - Final documented in this encounter Visit Diagnoses Diagnosis Primary hypertension- Primary Unspecified essential hypertension Ischemic heart disease Other specified forms of chronic ischemic heart disease Nonsustained ventricular tachycardia (CMS/HCC) (HCC) Dyslipidemia Other and unspecified hyperlipidemia Type 2 diabetes mellitus without complication, without long-term current use of insulin (HCC) Fibromyalgia Unspecified myalgia and myositis Encounter for immunization documented in this encounter Additional Health Concerns Assessment Noted Time PHQ-9 Depression Total Score: 16 025 2:05 PM EST documented as of this encounter Care Teams Marine Pipe Welder Relationship Specialty Start Date End Date Jenny Vázquez MD [address] [place] [address] PCP - General Family Medicine 04/13/18 documented as of this encounter
--- OUTSIDE RECORDS SUMMARY | 2025-02-16 18:05 | XMS_ITS | Encounter Summary ---
Author Organization [employer] Address [address] [facility] 7t [place] [address] Care Team Providers Care Mercantile Reporter Name Role Phone Jenny Vázquez MD Primary Care Provider [phone] Reason for Visit * Reason Onset Date Comments Nurse Triage 03/09/2023 Encounter Details Date Type Department Care Team (Late st Contact Info) Description 03/09/[address] [facility] [address] [place] [address] Jenny Vázquez MD [address] [place] [address] Nurse Triage Social History Tobacco Use Types [...] Triage call Pt reports was seen in [facility] 03/06/23 and tested positive for Covid. Pt [...] needed. Follow up ED visit apt with PHYSICAL THERAPIST CLINIC DIRECTOR Zeinab 03/19/23 @ 115pm. Insurance is verified asactive prior to booking. Protocol Used: COVID-19 - Diagnosed or Suspected (Adult) Protocol-Based Disposition: Home Care Positive Triage Question: * COVID-19 diagnosed by doctor (or PHYSICAL THERAPIST CLINIC DIRECTOR/PA) and mild symptoms (e.g., cough, fever, others) and no complications or SOB * All higher-acuity triage questions were negative Care Advice Discussed: * Reassurance and Education - Diagnosed With COVID-19 by Doctor (or PHYSICAL THERAPIST CLINIC DIRECTOR/PA) and Mild Symptoms * General Care Advice [...] Surfaces Every Day * Telephone Encounter - Dbei Matthew - 03/09/2023 11:22 AM EST Symptoms: Cough, Body Aches Outcome: Schedule an urgent appointment (within 1 hour) or talk to a nurse or provider soon Reason: Wheezing (high-pitched whistling sound), pt was seen at [facility] on 03/06 for asthma. Pt was tested positive for COVID and is still symptomatic. The caller accepted this outcome Please contact pt at [phone] documented in this encounter Plan of Treatment Upcoming Encounters Date Type Department Care Team (Late st Contact Info) Description 02/22/2025 1:30 PM EST Office Visit [facility] [address] [place] [address] Nathanael Crespo DDS [address] [place] [address] 07/24/2025 12:45 PM EDT Office Visit [facility] [address] [place] [address] Marialuisa Parsons documented as of this encounter Visit Diagnoses Not on filedocumented in this encounter Additional Health Concerns Assessment Noted Time PHQ-9 Depression Total Score: 0 10/22/19 23 1:17 PM EDT documented as of this encounter Care Teams Mercantile Reporter Relationship Specialty Start Date End Date Jenny Vázquez MD [address] [place] [address] PCP - General Family Medicine 04/13/18 documented as of this encounter
--- OUTSIDE RECORDS SUMMARY | 2025-02-16 18:05 | XMS_ITS | Encounter Summary ---
Author Organization [employer] Address [address] [facility] 7t [place] [address] Care Team Providers Care Picket Labor Union Name Role Phone Jenny Vázquez MD Primary Care Provider [phone] Encounter Details Date Type Department Care Team (Late st Contact Info) Description 03/09/2023 Abstract [facility] [address] [place] [address] Nathanael Crespo DDS [address] [place] [address] Social History Tobacco Use Types Packs/Day Years [...] Description 02/22/2025 1:30 PM EST Office Visit [facility] [address] [place] [address] Nathanael Crespo DDS [address] [place] [address] 07/24/2025 12:45 PM EDT Office Visit [facility] [address] [place] [address] Marialuisa Parsons documented as of this encounter Visit Diagnoses Not on filedocumented in this encounter Additional Health Concerns Assessment Noted Time PHQ-9 Depression Total Score: 0 10/22/19 23 1:17 PM EDT documented as of this encounter Care Teams [employer]et [employer] Union Relationship Specialty Start Date End Date Jenny Vázquez MD [address] [place] [address] PCP - General Family Medicine 04/13/18 documented as of this encounter
--- OUTSIDE RECORDS SUMMARY | 2025-02-16 18:05 | XMS_ITS | Encounter Summary ---
Author Organization [employer] Address [address] [place] [address] 7t [place] [address] Care Team Providers Care Animal Services Officer Name Role Phone Jenny Vázquez MD Primary Care Provider [phone] Encounter Details Date Type Department Care Team (Late st Contact Info) Description 10/31/2022 Abstract [facility] [address] [place] [address] Jenny Vázquez MD [address] [place] [address] Social History Tobacco Use Types Packs/Day Years [...] Description 02/22/2025 1:30 PM EST Office Visit [facility]ULT [facility] [address] [place], [place] [phone] Nathanael Crespo DDS [address] [place], [place] [phone] 07/24/2025 12:45 PM EDT Office Visit [facility] [address] [place], [place] [phone] Marialuisa Parsons documented as of this encounter Procedures Procedure Name Priority Date/Time Associated Diagnosis Comments PAP/HPV Routine 10/02/2022 documented in this encounter Results * Pap Smear (10/02/2022) Pap Negative for intraephithelial lesion or malignancy Negative for intraephithelial lesion or malignancy, Other HPV Undetected Result [facility] Unassigned Pcp HEALTH MAINTENANCE Final Result documented in this encounter Visit Diagnoses Not on filedocumented in this encounter Additional Health Concerns Assessment Noted Time PHQ-9 Depression Total Score: 0 10/22/19 23 1:17 PM EDT documented as of this encounter Care Teams Animal Services Officer Relationship Specialty Start Date End Date Jenny Vázquez MD [address] [place] [address] PCP - General Family Medicine 04/13/18 documented as of this encounter
--- OUTSIDE RECORDS SUMMARY | 2025-02-16 18:05 | XMS_ITS | Encounter Summary ---
Author Organization [employer] Address [address] [facility] 7t [place] [address] Care Team Providers Care Financial Risk Manager Name Role Phone Jenny Vázquez MD Primary Care Provider [phone] Encounter Details Date Type Department Care Team (Late st Contact Info) Description 03/10/2023 Abstract [facility] ADULT D[facility] [address] [place] [address] Nathanael Crespo DDS [address] [place] [address] Social History Tobacco Use Types Packs/Day Years [...] Description 02/22/2025 1:30 PM EST Office Visit [facility] ADULT D[facility] [address] [place] [address] Nathanael Crespo DDS [address] [place] [address] 07/24/2025 12:45 PM EDT Office Visit [facility] ADULT DENT[facility] [address] [place] [address] Marialuisa Parsons documented as of this encounter Visit Diagnoses Not on filedocumented in this encounter Additional Health Concerns Assessment Noted Time PHQ-9 Depression Total Score: 0 10/22/19 23 1:17 PM EDT documented as of this encounter Care Teams Financial Risk Manager Relationship Specialty Start Date End Date Jenny Vázquez MD [address] [place] [address] PCP - General Family Medicine 04/13/18 documented as of this encounter
--- OUTSIDE RECORDS SUMMARY | 2025-02-16 18:05 | XMS_ITS | Encounter Summary ---
Author Organization [employer] Address [address] [facility] 7t [place] [address] Care Team Providers Care Mixing Place Supervisor Name Role Phone Jenny Vázquez MD Primary Care Provider [phone] Reason for Visit * Reason Comments Med Refill Encounter Details Date Type Department Care Team (Late st Contact Info) Description 04/17/2023 Refill [facility] [address] [place] [address] Jenny Vázquez MD [address] [place] [address] Fibromyalgia Social History Tobacco Use Types Packs/Day [...] Description 02/22/2025 1:30 PM EST Office Visit [facility] [address] [place] [address] Nathanael Crespo DDS [address] [place] [address] 07/24/2025 12:45 PM EDT Office Visit [facility] [address] [place] [address] Marialuisa Parsons documented as of this encounter Visit Diagnoses Diagnosis Fibromyalgia Unspecified myalgia and myositis documented in this encounter Additional Health Concerns Assessment Noted Time PHQ-9 Depression Total Score: 0 10/22/19 23 1:17 PM EDT documented as of this encounter Care Teams Mixing Place Supervisor Relationship Specialty Start Date End Date Jenny Vázquez MD [address] [place] [address] PCP - General Family Medicine 04/13/18 documented as of this encounter
--- OUTSIDE RECORDS SUMMARY | 2025-02-16 18:05 | XMS_ITS | Encounter Summary ---
Author Organization [employer] Address [address] [facility] 7t [place] [address] Care Team Providers Care Prosthetic Aide Name Role Phone Jenny Vázquez MD Primary Care Provider [phone] Reason for Visit * Reason Comments Med Change Request Encounter Details Date Type Department Care Team (Late st Contact Info) Description 11/23/[address] [facility] [address] [place] [address] Jenny Vázquez MD [address] [place] [address] Social History Tobacco Use Types Packs/Day Years [...] 1:30 PM EST Office Visit [facility] ADULT DENT[facility] [address] [place] [address] Nathanael Crespo DDS [address] [place] [address] 07/24/2025 12:45 PM EDT Office Visit [facility] ADULT D[facility] [address] [place] [address] Marialuisa Parsons documented as of this encounter Visit Diagnoses Not on filedocumented in this encounter Additional Health Concerns Assessment Noted Time PHQ-9 Depression Total Score: 16 025 2:05 PM EST documented as of this encounter Care Teams Prosthetic Aide Relationship Specialty Start Date End Date Jenny Vázquez MD [address] [place] [address] PCP - General Family Medicine 04/13/18 documented as of this encounter
--- OUTSIDE RECORDS SUMMARY | 2025-02-16 18:05 | XMS_ITS | Encounter Summary ---
Author Organization [employer] Address [address] [facility] 7t [place] [address] Care Team Providers Care Cable Rigger Name Role Phone Jenny Vázquez MD Primary Care Provider [phone] Encounter Details Date Type Department Care Team (Late st Contact Info) Description 04/29/2022 Orders Only [facility] [address] [place] [address] Lorraine Arroyo LPN Social History Tobacco Use [...] [facility] [address] [place] [address] Nathanael Crespo DDS [address] [place] [address] 07/24/2025 12:45 PM EDT Office Visit [facility] [address] [place] [address] Marialuisa Parsons documented as of this encounter Procedures Procedure Name Priority Date/Time Associated Diagnosis Comments LIPID PANEL, STANDARD Routine 11/05/2022 8:43 AM EDT PAP SMEAR Routine 10/02/2022 3:36 PM EDT documented in this encounter Results * Lipid Panel, Standard (11/05/2022 8:43 AM EDT) Triglycerides 76 mg/dL [facility] Comment:Desirable Triglyceri de: less than 150 mg/dLBorderline High Triglyceride 150-199 mg/dLHigh Triglyceride: 200-499 mg/dLVery High Triglyceride: greater than or equal to 5OO mg/dL Cholesterol 118 mg/dL [facility] Comment:Desirable Cholestero l: less than 200 mg/dLBorderline High Cholesterol: 200-239 mg/dLHigh Cholesterol: greater than 239 mg/dL LDL Cholesterol Calculated 56 mg/dl [facility] Comment:Desirable LDL: less than 100 mg/dLNear Optimal/Above Optimal LDL: 110- 129 mg/dLBorderline High LDL: 130-159 mg/dLHigh LDL: 160-189 mg/dLVery High LDL: greater than or equal to 190 mg/dL HDL Cholesterol 47 mg/dL [facility] Comment:Desirable HDL: great er than 40 mg/dL Note: This HDL assay may give artificially low results in patients with liver disease. 11/05/2022 8:43 AM EDT 11/05/2022 11:40 AM EDT us Jenny Vázquez MD LAB BLOOD ORDERABLES Final Resul t [facility] [address] [place] [address] [phone] * Pap Smear (10/02/2022 3:36 PM EDT) 10/02/2022 3:36 PM EDT 10/06/2022 12:00 PM EDT [facility] - 10/27/2022 10:49 AM EDT ----- ------- Name: Araseli Leary Age/Sex: 67/F : 1955 Unit#: [id number] Attend Dr: Argentina Mak CNM Re10/02/22 Status: DEP [facility]F [facility] Disch: ----- ------- SPEC : [id number] RECD: 10/06/22-1199 STATUS: GABRIELA JAVIER NUM: [id number] TODD: 10/02/22-[address] [facility] [address]: Argentina Mak CNM ENTERED: 10/06/22-1318 SP TYPE: Pap Smr OT DR: Jenny Vázquez MD ORDERED: Pap Smear Interpretation Satisfactory for evaluation. Negative for intraepithelial lesion or malignancy. HPV mRNA E6/E7: NOT DETECTED This assay detects E6/E7 viral messenger RNA (mRNA) from 14 high-risk HPV types (16, 18, 31, 33, 35, 39, 45, 51, 52, 56, 58, 59, 66, 68) HPV testing performed by [employer], [place], [place]. See reference laboratory portion of the EMR for entire report. Clinical Information LMP: Menopausal Previous PAP test: 2018, ASCUS Material Received ThinPrep-Cervical Copies To: Argentina Mak [address] [facility] [address] [place] [address] Jenny Vázquez MD [address] [place], [place] [phone] ----- ------- Signed (signature on file) Berlin Rodriguez MD 10/27/22 1049 ----- ------- END OF REPORT [facility] External Provider LAB [facility] [employer] ORDERABLES Final Result [facility] [address] [place] [address] [phone] documented in this encounter Visit Diagnoses Not on filedocumented in this encounter Care Teams Cable Rigger Relationship Specialty Start Date End Date Jenny Vázquez MD [address] [place] [address] PCP - General Family Medicine 04/13/18 documented as of this encounter
--- OUTSIDE RECORDS SUMMARY | 2025-02-16 18:05 | XMS_ITS | Encounter Summary ---
Author Organization [employer] Address [address] [facility] 7t [place] [address] Care Team Providers Care Senior Project Accountant Name Role Phone Jenny Vázquez MD Primary Care Provider [phone] Reason for Visit * Reason Onset Date Comments Med Refill 06/08/2023 Encounter Details Date Type Department Care Team (Late st Contact Info) Description 06/08/2023 Refill [facility] [address] [place] [address] Loyda Clark MD [address] [place] [address] Fibromyalgia Social History Tobacco Use Types Packs/Day [...] Description 02/22/2025 1:30 PM EST Office Visit [facility]ULT [facility] [address] [place] [address] Nathanael Crespo DDS [address] [place] [address] 07/24/2025 12:45 PM EDT Office Visit [facility]ULT [facility] [address] [place] [address] Marialuisa Parsons documented as of this encounter Visit Diagnoses Diagnosis Fibromyalgia Unspecified myalgia and myositis documented in this encounter Additional Health Concerns Assessment Noted Time PHQ-9 Depression Total Score: 0 10/22/19 23 1:17 PM EDT documented as of this encounter Care Teams Senior Project Accountant Relationship Specialty Start Date End Date Jenny Vázquez MD [address] [place] [address] PCP - General Family Medicine 04/13/18 documented as of this encounter
--- OUTSIDE RECORDS SUMMARY | 2025-02-16 18:06 | XMS_ITS | Encounter Summary ---
Author Organization [employer] Address [address] [facility] 7t [place] [address] Care Team Providers Care Horse Shoer Name Role Phone Jenny Vázquez MD Primary Care Provider Encounter Details Date Type Department Care Team (Latest Contact Info) Description 02/14/2025 Travel Social History Tobacco Use Types Packs/Day [...] Description 02/22/2025 1:30 PM EST Office Visit [facility]ULT DENT[facility] [address] [place] [address] Nathanael Crespo DDS [address] [place] [address] 07/24/2025 12:45 PM EDT Office Visit [facility]ULT DENT[facility] [address] [place] [address] Marialuisa Parsons documented as of this encounter Visit Diagnoses Not on filedocumented in this encounter Additional Health Concerns Assessment Noted Time PHQ-9 Depression Total Score: 16 025 2:05 PM EST documented as of this encounter Care Teams Horse Shoer Relationship Specialty Start Date End Date Jenny Vázquez MD [address] [place] [address] PCP - General Family Medicine 04/13/18 documented as of this encounter
--- OUTSIDE RECORDS SUMMARY | 2025-02-16 18:06 | XMS_ITS | Encounter Summary ---
Author Organization [employer] Address [address] [facility] [address]t [place] [address] Care Team Providers Care Hvac Sheet Metal Installer Name Role Phone Jenny Vázquez MD Primary Care Provider [phone] Encounter Details Date Type Department Care Team (Latest Contact Info) Description 02/15/2025 Travel Social History Tobacco Use Types Packs/Day [...] Description 02/22/2025 1:30 PM EST Office Visit [facility]ULT D[facility] [address] [place] [address] Nathanael Crespo DDS [address] [place] [address] 07/24/2025 12:45 PM EDT Office Visit [facility]ULT [facility] [address] [place] [address] Marialuisa Parsons documented as of this encounter Visit Diagnoses Not on filedocumented in this encounter Additional Health Concerns Assessment Noted Time PHQ-9 Depression Total Score: 16 025 2:05 PM EST documented as of this encounter Care Teams Hvac Sheet Metal Installer Relationship Specialty Start Date End Date Jenny Vázquez MD [address] [place] [address] PCP - General Family Medicine 04/13/18 documented as of this encounter
--- OUTSIDE RECORDS SUMMARY | 2025-02-16 18:06 | XMS_ITS | Encounter Summary ---
Author Organization [employer] Address [address] [facility] 7t [place] [address] Care Team Providers Care Banquet Houseperson Name Role Phone Jenny Vázquez MD Primary Care Provider [phone] Encounter Details Date Type Department Care Team (Late st Contact Info) Description 12/30/2023 Orders Only [facility] [address] [place] [address] Jenny Vázquez MD [address] [place] [address] Primary hypertension (Primary Dx); Dyslipidemia; Fibromyalgia Social [...] Description 02/22/2025 1:30 PM EST Office Visit [facility]ULT D[facility] [address] [place] [address] Nathanael Crespo DDS [address] [place] [address] 07/24/2025 12:45 PM EDT Office Visit [facility] [address] [place] [address] Marialuisa Parsons documented as of this encounter Visit Diagnoses Diagnosis Primary hypertension- Primary Unspecified essential hypertension Dyslipidemia Other and unspecified hyperlipidemia Fibromyalgia Unspecified myalgia and myositis documented in this encounter Additional Health Concerns Assessment Noted Time PHQ-9 Depression Total Score: 0 10/22/19 23 1:17 PM EDT documented as of this encounter Care Teams Banquet Houseperson Relationship Specialty Start Date End Date Jenny Vázquez MD [address] [place] [address] PCP - General Family Medicine 04/13/18 documented as of this encounter
--- OUTSIDE RECORDS SUMMARY | 2025-02-16 18:06 | XMS_ITS | Encounter Summary ---
Author Organization [employer] Address [address] [facility] 7[address] [place] [address] Care Team Providers Care Mechanical Engineering Manager Name Role Phone Jenny Vázquez MD Primary Care Provider [phone] Encounter Details Date Type Department Care Team (Late st Contact Info) Description 02/13/2025 Telephone [facility] [address] [place] [address] [place], [place] Social History Tobacco Use Types Packs/Day Years [...] encounter Miscellaneous Notes * Telephone Encounter - Vivi Alvarez [place] - 02/13/2025 12:55 PM EST Chart Prep Labs: done Images: done Referrals: not applicable Vaccines due: Covid, Flu, and RSV Screenings: not applicable Overdue care gaps: SBIRT, SDOH, and PHQ-9 documented in this encounter Plan of Treatment Upcoming Encounters Date Type Department Care Team (Late st Contact Info) Description 02/22/2025 1:30 PM EST Office Visit [facility] [address] [place] [address] Nathanael Crespo DDS [address] [place] [address] 07/24/2025 12:45 PM EDT Office Visit [facility] [address] [place] [address] Marialuisa Parsons documented as of this encounter Visit Diagnoses Not on filedocumented in this encounter Additional Health Concerns Assessment Noted Time PHQ-9 Depression Total Score: 16 025 2:05 PM EST documented as of this encounter Care Teams Mechanical Engineering Manager Relationship Specialty Start Date End Date Jenny Vázquez MD [address] [place] [address] PCP - General Family Medicine 04/13/18 documented as of this encounter
--- OUTSIDE RECORDS SUMMARY | 2025-02-16 18:06 | XMS_ITS | Clinical Summary ---
Author Organization [employer] Address [address] [place] [address] 7[address] [place] [address] Care Team Providers Care Wireless Network Engineer Name Role Phone Jenny Vázquez MD Primary Care Provider [phone] Allergies Active Allergy Reactions Criticality Noted Date Comments Martir Inhibitors 04/21/2022 Ascorbate 02/05/2024 Latex 02/05/2024 Lisinopril Hives 02/18/2023 New Skin 02/05/2024 Peanut Oil 04/21/2022 Peanut-Containing Drug Products 01/12 Pineapple 02/05/2024 Hastings Extract Other 02/08/2024 Zoster Vaccine Live 12/12/2016 [...] 911 IF NO RELIEF 11/19/19 22 Active fluticasone (Flonase) 50 MCG/ACT nasal sprayIndication s:Allergic rhinitis, unspecified seasonality, unspecified trigger INSTILL 2 SPRAYS IN EACH NOSTRIL ONCE DAILY 16 g 11 08/06/19 23 Active budesonide-form oterol (Symbicort) [...] mg by mouth Once per day. 10/14/19 24 Active metoclopramide (Reglan) 5 MG tablet Take 5 mg by mouth 4 times daily. Active montelukast (Singulair) 10 MG tabletIndicatio ns:Moderate persistent asthma without complication,Al lergic rhinitis, unspecified seasonality, unspecified trigger Take 1 tablet (10 mg) by mouth at bedtime. 90 tablet 3 02/08/20 24 Active colchicine 0.6 MG tablet TAKE 1 TABLET BY MOUTH EVERY DAY FOR 7 DAYS 12/22/19 24 Active semaglutide (Ozempic) 2 MG/1.5ML solution pen-injector Inject 0.5 mg under the skin 1 (one) time per week. 1.5 mL 06/06/19 25 Active triamcinolone (Kenalog) 0.1 % ointment APPLY TO THE AFFECTED AREA(S) TWICE DAILY 453 g 3 10/12/19 25 Active Alcohol Swabs (Alcohol Prep) pads Check blood sugar once daily and as needed 100 each 10/12/19 Active FreeStyle lancets 1 each by Other route Once per day. Check blood glucose 100 each 10/12/19 Active FREESTYLE LITE test strip Check blood glucose 100 each 10/12/19 25 Active sertraline (Zoloft) 25 MG tablet 10/11/19 Active Incruse Ellipta 62.5 MCG/ACT aerosol powder take 1 puff by mouth every day 03/28/20 24 Active glucose blood (OneTouch Ultra) test stripIndication s:Type 2 diabetes mellitus without complication, without long-term current use of insulin (HCC) Use to test blood sugar once daily 50 each 11/24/19 25 2025 Active Blood Glucose Monitoring Suppl (ONE TOUCH ULTRA 2) w/Device kitIndications: Type 2 diabetes mellitus without complication, without long-term current use of insulin (HCC) Use to test blood sugar once daily 1 kit 11/24/19 25 Active Lancets (onetouch ultrasoft) lancetsIndicati ons:Type 2 diabetes mellitus without complication, without long-term current use of insulin (HCC) 1 each by Other route Once per day. Check blood sugar once daily 360 each 11/24/19 25 2025 Active EPINEPHrine (Epipen) 0.3 MG/0.3ML injection syringe Inject into upper leg. Call 911 after use. 1 each 1 02/15/20 25 Active pregabalin (Lyrica) 50 MG capsuleIndicati ons:Fibromyalgi a Take 1 capsule (50 mg) by mouth 2 times daily. 60 capsule 3 02/15/20 25 Active EPINEPHrine (Epipen) 0.3 MG/0.3ML injection syringe USE DIRECTED FOR ANAPHYLAXIS 2024 Discontinued(R eorder (will not trigger notification to Pharmacy)) pregabalin (Lyrica) 50 MG capsuleIndicati ons:Fibromyalgi a TAKE 1 CAPSULE BY MOUTH EVERY TWELVE HOURS 60 capsule 3 09/08/19 25 2024 Discontinued pregabalin (Lyrica) 50 MG capsuleIndicati ons:Fibromyalgi a TAKE 1 CAPSULE BY MOUTH EVERY TWELVE HOURS 60 capsule 3 02/02/20 25 2024 Discontinued(R eorder (will not trigger notification to Pharmacy)) Active Problems Problem Noted Date Diagnosed Date Open fracture of tooth 2025 Dental plaque 2025 Retained dental root 2025 Ganglion cyst of volar aspect of left wrist 10/11 Assessment & Plan (10/24/2024 5:04 AM EDT): - previously seen by [facility]. Surgical excisional biopsy was recommended, but [...] baking, cleaning her home and listening to jehovah's witness music. Araseli reports taking medication prescribed by her PCP and having improvements from them. clinician will provide additional support if needed during next medical appointment. Ischemic heart disease 08/05/2022 Assessment & Plan (02/14/2025 9:36 AM EST): -Petroleum Analyst: Dr. Arsenio TAPIA and Janna Cruz NP, [...] discontinued when she was last seen by improvement analyst in Apr 2024. -Continue Metoprolol, ASA and Atorvastatin -Continue isosorbide for antianginal effect. Recently increased dose to 90 mg daily. -Cont working on lifestyle modifications. Assessment & Plan (10/24/2024 5:09 AM EDT): -Petroleum Analyst: Dr. Arsenio Bernard and Janna Cruz NP, [...] discontinued when she was last seen by improvement analyst in Apr 2024. -Continue Metoprolol, ASA and Atorvastatin -Continue isosorbide for antianginal effect. Recently increased dose to 90 mg daily. -Cont working on lifestyle modifications. Assessment & Plan (06/06/2024 3:21 PM EST): -Petroleum Analyst: Dr. Arsenio TAPIA and Janna Cruz NP, [...] discontinued when she was last seen by improvement analyst in Apr 2024. -Continue Metoprolol, ASA and Atorvastatin -Continue isosorbide -Cont working on lifestyle modifications. Assessment & Plan (02/15/2024 1:39 PM EST): -Petroleum Analyst: Dr. Arsenio TAPIA, last seen on 01/08/23 [...] Assessment & Plan (01/28/2023 8:56 PM EDT): -Petroleum Analyst: Dr. Arsenio TAPIA, last seen on 01/08/23 [...] Assessment & Plan (10/28/2022 7:06 AM EDT): -Petroleum Analyst: Dr. Arsenio TAPIA, last seen on 08/05/22; [...] Assessment & Plan (08/15/2022 6:38 AM EDT): -Petroleum Analyst: [facility], Dr. Cesar, appt today - NSTEMI in September2021 [...] on 10/20/22. Being scheduled for Pre-Op with Petroleum Analyst. Pt needs Cardiac Clearance Before Hemorrhoidectomy. - [...] tachycardia (CMS/HCC) 0 05/29/2017 Assessment & Plan (02/14/2025 9:37 AM EST): - previously on Fleicanide, which was [...] cause of frequent PVCs. Assessment & Plan (10/13/2024 10:50 PM EDT): [...] (10/24/2024 5:10 AM EDT): - evaluated by chemist pharmaceutical - wears hearing aids; needs a new referral Assessment & Plan (02/10/2024 8:13 AM EDT): - evaluated by chemist pharmaceutical - wears hearing aids Assessment & Plan (08/15/2022 6:43 AM EDT): - evaluated by chemist pharmaceutical - wears hearing aids Type 2 diabetes mellitus 04/03/2015 Assessment & Plan (02/14/2025 9:37 AM EST): A1c 6.1% on 10/11/24, improved from 6.3 [...] May 2024, plantar fasciitis, ingrown toenail, sees real estate representative. -Last microalbumin test: 06/07/24 UACR TNP -Last lipid profile: 06/07/24 TC 121; TG 106; HDL 44; LDL 56 -Last dental exam: up-to-date; upcoming in APR 2022 Assessment & Plan (10/24/2024 5:15 AM EDT): [...] May 2024, plantar fasciitis, ingrown toenail, sees real estate representative. -Last microalbumin test: 06/07/24 UACR TNP -Last [...] May 2024, plantar fasciitis, ingrown toenail, sees real estate representative. -Last microalbumin test: 11/05/22 UACR 4.9; [...] exam: 08/05/22, plantar fasciitis, ingrown toenail, sees real estate representative. -Last microalbumin test: 11/05/22 UACR 4.9; [...] exam: 08/05/22, plantar fasciitis, ingrown toenail, sees real estate representative. -Last microalbumin test: 11/05/22 UACR 4.9; [...] exam: 08/05/22, plantar fasciitis, ingrown toenail, sees real estate representative. -Last microalbumin test: 10/25/18 UACR no [...] exam: 08/05/22, plantar fasciitis, ingrown toenail, sees real estate representative. -Last microalbumin test: 10/25/18 UACR no microalbuminuria -Last lipid profile: 01/09/22 TC 134; TG 196; HDL 43; LDL 52 -Last dental exam: up-to-date; upcoming in APR 2022 -Immunizations: -Influenza - due -Pneumovax - due (PCV-13) -Hep B - completed -Aspirin use: Prescribed Dyslipidemia 11/07/2014 Assessment & Plan (02/14/2025 9:34 AM EST): Last lipid profile: 06/07/24 TC 121; TG 106; HDL 44; LDL 56 Current medication: atorvastatin 80 mg qhs Tx Hx: -Pt previously c/o myalgia using atorvastatin which was changed to pravastatin, switched back to atorvastatin d/t NSTEMI and tolerating at this time Assessment & Plan (10/13/2024 10:52 PM EDT): [...] Plan (08/05/2022 9:28 AM EDT): Seen by improvement analyst, Dr. Cesar, on 01/09/22 for CAD and PVC f/u: -TTE was ordered by Petroleum Analyst -most recent Holter monitor in Dec 2019 PVC 3%. -09/20/21 Echo LVEF 45-50%, p/s Stent -Continue metoprolol succinate 50 mg TWO tablets daily -Continue BB -Previously flecainide 100 mg BID. d/c d/t hospitalization Fibromyalgia 07/20/2014 Assessment & Plan (06/06/2024 3:28 PM EST): Followed by Crimper Assembler -Continue Lyrica, use judiciously -Continue staying active Assessment & Plan (02/10/2024 8:12 AM EDT): Followed by Crimper Assembler -Continue Lyrica, use judiciously -Continue staying active Assessment & Plan (08/05/2022 9:27 AM EDT): Followed by Crimper Assembler -Continue Lyrica, use judiciously -Continue staying active Allergic rhinitis 03/24/2013 Assessment & Plan (02/15/2024 1:48 PM EST): - continue loratadine and montelukast - following with powered bridge specialist Assessment & Plan (10/21/2022 2:19 PM EDT): - continue loratadine and montelukast - will check status of referral Assessment & Plan (08/15/2022 6:43 AM EDT): - continue loratadine and montelukast - refer to a new powered bridge specialist Depressive disorder 03/24/2013 Hypertension 03/24/2013 Assessment & Plan (02/14/2025 9:35 AM EST): - Goal BP < 130/80 per ACC/AHA - BP at goal -Continue Metoprolol 100 mg daily -Continue Lifestyle modifications -Continue monitoring BP at home -Previously tried ARB, ACEI, and HCTZ -Discontinued ACEI due to cough -Follow up in 3-6 mo or sooner prn Assessment & Plan (10/24/2024 5:16 AM EDT): [...] & Plan (10/13/2024 10:51 PM EDT): - rectangular tank cooper changed mask for nasal pillow per patient's request in May 2023 - recommended CPAP use Assessment & Plan (06/06/2024 3:27 PM EST): - rectangular tank cooper changed mask for nasal pillow per patient's request in May 2023 - recommended CPAP use Assessment & Plan (02/14/2024 5:29 PM EST): - rectangular tank cooper changed mask for nasal pillow per patient's request in May 2023 - recommended CPAP use Assessment & Plan (01/28/2023 8:51 PM EDT): - continue CPAP Asthma 12/10/2012 Assessment & Plan (10/13/2024 10:50 PM EDT): - Previously followed by Allergy / mental health program specialist : Dr. Ahn - Seen by new rectangular tank cooper at [facility] in May 2023 - No history of intubation, Hx pneumonia and influenza in Apr 2018 - Severe exacerbation 1 or 2 times / year - Last exacerbation in Mar 2024, Rx prednisone, doxycycline. - Continue Symbicort and Singulair as maintenance. - Continue albuterol HFA / neb prn as rescue. Assessment & Plan (06/06/2024 6:25 AM EST): - Previously followed by Allergy / mental health program specialist : Dr. Ahn - Seen by new rectangular tank cooper at [facility] in May 2023 - No history of [...] EST): - Previously followed by Allergy / mental health program specialist : Dr. Ahn - Seen by new rectangular tank cooper at [facility] in May 2023 - No history of intubation, Hx pneumonia and influenza in Apr 2018 - Severe exacerbation 1 or 2 times / year - Continue Symbicort and Singulair as maintenance. - Continue albuterol HFA / neb prn as rescue. Assessment & Plan (01/28/2023 8:51 PM EDT): - Previously followed by Allergy / mental health program specialist : Dr. Ahn - Seen by new rectangular tank cooper at [facility] in August 2022 - No history of intubation, Hx pneumonia and influenza in Apr 2018 - Severe exacerbation 1 or 2 times / year - Continue Symbicort and Singulair as maintenance. - Continue albuterol HFA / neb prn as rescue. Assessment & Plan (10/28/2022 6:57 AM EDT): - Previously followed by Allergy / mental health program specialist : Dr. Ahn - Seen by new rectangular tank cooper at [facility] in August 2022 - No history of intubation, Hx pneumonia and influenza in Apr 2018 - Severe exacerbation 1 or 2 times / year - Continue Symbicort and Singulair as maintenance. - Continue albuterol HFA / neb prn as rescue. Assessment & Plan (08/15/2022 6:29 AM EDT): - Allergy / mental health program specialist : Dr. Ahn, needs a new allergy ncqa specialist - No history of intubation, Hx [...] she would like me to call her improvement analyst and try to get a sooner appointment and she said shes fine and can wait. I asked her if she felt safe and she said she did. We discussed her nitroglycerin and when to use it and ED precautions. Differentials: stable vs unstable angina, left sided axillary pain, frequent or high PVC burden. Encounters Date Type Department Care Team Description 02/15/2025 Travel 02/14/2025 1:15 PM EST Office Visit [address] [address] Jenny Vázquez MD Primary hypertension (Primary Dx); Ischemic heart disease; Nonsustained ventricular tachycardia (CMS/HCC) (HCC); Dyslipidemia; Type 2 diabetes mellitus without complication, without long-term current use of insulin (HCC); Fibromyalgia; Encounter for immunization 02/14/2025 Travel 02/13/2025 Telephone [facility] [address], [place] [phone] Antonio ViviANGE 02/07/2025 Travel 02/01/2025 Refill [facility] [address] [place] [address] Jenny Vázquez MD Fibromyalgia 2025 12:45 PM EDT Office Visit [facility] ADULT D[facility] [address], [place] [phone] Marialuisa Parsons Open fracture of tooth, initial encounter (Primary Dx); Dental plaque; Retained dental root; Dental calculus 01/18/2025 Travel 11/23/2024 Refill [facility] [address], [place] [phone] Jenny Vázquez MD Type 2 diabetes mellitus without complication, without long-term current use of insulin (CMS/HCC) 11/23/2024 Refill [facility] [address], [place] [phone] Jenny Vázquez MD from Last 3 Months Immunizations Immunization Administration Dates Next Due Hep B, adult 03/16/2017,11/07/2014,03/24/2013 Influenza High-dose Quadriva lent Preservative Free 01/26/2023,02/18/2022 Influenza injectable quadriv alent IIV4 with preservative 12/28/2018,03/16/2017,01/14/2016 Influenza injectable quadriv alent preservative free 06/15/2018 Influenza, High Dose Seasona l, Preservative Free 02/14/2025,02/08/2024 Influenza, IIV3, injectable 12/25/2010, 9 Influenza, Split [...] Mass Index 32.97 02/14/2025 1:23 PM EST Plan of Treatment Upcoming Encounters Date Type Department Care Team (Late st Contact Info) Description 02/22/2025 1:30 PM EST Office Visit [facility] [address], [place] [phone] Nathanael Crespo DDS [address], [place] [phone] 07/24/2025 12:45 PM EDT Office Visit [facility] [address], [place] [phone] Marialuisa Parsons Health Maintenance Due Date Last Done Comments CT Colonography 1955 FIT DNA/Cologuard 1955 FIT 1955 FOBT 1955 Sigmoidoscopy 1955 Hepatitis C Screening 01/18/1974 RSV Patients and Patients Aged 60 years or older (1 - Risk 60-74 years 1-dose series) 2016 Zoster Vaccines (2 of 3) 01/13/2017 11/18/2016 Depression Monitoring 10/31/2024 05/03/2024, 025 COVID-19 Vaccine ( season) 2024 11/18/2021, 08/04/2020, 07/11/2020 SDOH Screening 02/07/2025 02/08/2024 Eye Exam 03/03/2025 03/03/2023 Diabetes: Urine Protein Screening 06/07/2025 06/07/2024, 11/05/2022, 02/18/2022 Lipid Panel 06/07/2025 06/07/2024, 10/12, 01/09/2022 Dental Oral Exam 07/21/2025 2025, 11/2022, 08/20/2020, Additional history exists Dental Prophylaxis 07/21/2025 2025, 0 04/29/2016, 10/23/2015, Additional history exists Diabetes: Hemoglobin A1C 08/14/2025 025, 10/11/2024, 06/06/2024, Additional history exists Diabetes: Foot Exam 10/11/2025 10/11/2024, 10/11/2024, 10/11/2024, Additional history exists Dental X-Ray: Bitewings 01/20/2026 01/20/20, 02/18/2023, 08/20/2020, Additional history exists Mammogram 02/11/2026 02/12/2024, 01/12, 02/04/2022, Additional history exists Alcohol/Substance Use Screening 02/14/2026 02/14/2025 Tobacco Screening 02/14/2026 02/14/2025 Colonoscopy 12/09/2026 12/09/2016 Colorectal Cancer Screening 12/09/2026 Dental X-Ray: Full Mouth 01/21/2028 2025, 08/11 DTaP/Tdap/Td Vaccines (3 - Td or Tdap) 02/19/2032 02/18/2022, 06/04/2011, 04/13/2004 Hepatitis B Vaccines Completed 03/16/2017, 11/07/2014, 03/24/2013 Pneumococcal Vaccine: 50+ Years Completed 02/08/2024, 01/04/2009 Influenza Vaccine Completed 02/14/2025, , 01/26/2023, Additional history exists HIB Vaccines Aged Out No longer eligi [...] complication, without long-term current use of insulin ([facility]) POCT GLUCOSE Routine 02/14/2025 1:28 PM EST Type 2 diabetes mellitus without complication, without long-term current use of insulin ([facility]) CASE PRESENTATION, DETAILED AND EXTENSIVE TREATMENT PLANNING [...] Mixed conductive and sensorineural hearing loss, bilateral ALBUMIN, RANDOM URINE W/CREATININE Routine 06/07/2024 10:46 AM EST Type 2 diabetes mellitus without complication, without long-term current use of insulin ([facility]) Primary hypertension LIPID PANEL WITH REFLEX TO DIRECT LDL Routine 06/07/2024 10:46 AM EST Dyslipidemia BI MAMMOGRAM SCREENING TOMOSYNTHESIS BILATERAL Routine 02/12/2024 2:03 PM EDT DIABETES EYE EXAM Routine 03/03/2023 COLONOSCOPY Routine 12/09/2016 from Last 3 Months or Most Recently Relevant to Health Maintenance Results * (ABNORMAL) POCT Hgb A1c (02/14/2025 1:30 PM EST) Hemoglobin A1C 6.0(A) 4.0 - 5.7 % QC Media Lot # [id number] Lot# Expiration Date [id number] Blood 02/14/2025 1:30 PM EST us Jenny Vázquez MD POINT OF CARE TEST ENTER/EDIT OR DERABLES Final Result * POCT Glucose (02/14/2025 1:28 PM EST) Glucose Blood, POC 156 60 - 200 mg/dL QC Media Lot # [id number] Lot# Expiration Date 3,026 Blood Capillary blood specimen / Unknown 02/14/2025 1:28 PM EST us Jenny Vázquez MD POINT OF CARE TEST ENTER/EDIT OR DERABLES Edited Result - Final * Referral to Audiology (12/06/2024) us Jenny Vázquez MD OUTPATIENT REFERRAL ORDERABLES F inal Result * Lipid Panel with Reflex to Direct LDL (06/07/2024 10:46 AM EST) Triglycerides 106 <150 mg/dL [facility] Comment:Desirable Triglyceri de: less than 150 mg/dLBorderline High Triglyceride 150-199 mg/dLHigh Triglyceride: 200-499 mg/dLVery High Triglyceride: greater than or equal to 5OO mg/dL Cholesterol 121 <200 mg/dL [facility] Comment:Desirable Cholestero l: less than 200 mg/dLBorderline High Cholesterol: 200-239 mg/dLHigh Cholesterol: greater than 239 mg/dL LDL Cholesterol Calculated 56 <100 mg/dL [facility] Comment:Desirable LDL: less than 100 mg/dLNear Optimal/Above Optimal LDL: 110- 129 mg/dLBorderline High LDL: 130-159 mg/dLHigh LDL: 160-189 mg/dLVery High LDL: greater than or equal to 190 mg/dL HDL Cholesterol 44 >40 mg/dL [facility] Comment:Desirable HDL: great er than 40 mg/dL Note: This HDL assay may give artificially low results in patients with liver disease. Blood 06/07/2024 10:4 6 AM EST 06/07/2024 11:30 AM EST us Jenny Vázquez MD LAB BLOOD ORDERABLES Final Resul t Performing Organization Address [facility] Co de Phone Number [facility] [address] [place] [phone] * Albumin, Random Urine W/Creatinine (06/07/2024 10:46 AM EST) Creatinine, Urine 93.36 mg/dL [facility] Microalbumin Urine <5.0 mg/L [facility] Microalbum Creatinine Ratio Ur TNP <30 ug/mg cr [facility] Comment:Unable to calculate albumin/creatinine ratio due to lowmicroalbumin or creatinine result. Urine 06/07/2024 10:4 6 AM EST 06/07/2024 11:32 AM EST us Jenny Vázquez MD LAB URINE ORDERABLES Final Resul t Performing Organization Address [facility] Co de Phone Number [facility] [address] [place] [phone] * BI Mammogram Screening Tomosynthesis Bilateral (02/12/2024 2:03 PM EDT) Anatomical Region Laterality Modality Breast Bilateral Mammography 02/12/2024 2:03 PM EDT Narrative 02/22/2024 7:44 PM EST [facility] [address] [place] [address] [place] [address] Mammography Report Signed Patient: Araseli Leary MR#: [id number] : 1955 Acct:[id number] Age/Sex: 69 / F ADM Date: 02/12/24 Loc: [facility] Attending Dr: Jenny Vázquez MD Ordering Physician: Jenny Vázquez MD Results: 1Negative Date of Service: 02/12/24 Follow Up: 1 Year From Orig inal Mammogram Procedure(s): MM tomosynthesis screening BI Accession Number(s): [id number] cc: Jenny Vázquez MD EXAMINATION: MM SCREENING [...] by: Celine Mendez DO 02/22/2024 07:41 PM [facility] Dictated By: Celine Mendez DO Signed By: <Electronically signed by Celine Mendez DO in OV> 02/22/241940 DD/ 02 TD/TT: 02/12/241402 Photographic Intelligence Officer: Procedure Note Donotuseinterpreter, Image - [facility]/22/[facility] [address] [place] [address] Mammography Report Signed Patient: Jose M Leary#: [id number] : 1955cct:[id number] Age/Sex: 69 / FADM Date: 02/12/24 Loc: [facility] Attending Dr: Jenny Vázquez MD Ordering Physician: Jenny Vázquez MDResults: 1Negative Date of Service: 02/12/24Follow Up: 1 Year From Orig inal Mammogram Procedure(s): MM tomosynthesis screening BI Accession Number(s): [id number] cc: Jenny Vázquez MD EXAMINATION: MM SCREENING [...] in OV> 02/22/241940 DD/ 02 TD/TT: 02/12/241402 Photographic Intelligence Officer: Jenny Vázquez MD IMG BI PROCEDURES Edited Result - Final * Diabetes Eye Exam (03/03/2023) Eye Exam Normal Normal Historical Provider HEALTH MAINTENANCE Final Result * Colonoscopy (12/09/2016) Colonoscopy Normal Normal 12/09/2016 Kerri Alejo HEALTH MAINTENANCE Final Result from Last 3 Months or Most Recently Relevant to Health Maintenance Insurance [address] [place] [phone] [employer] MED[employer] REPLACEMENT [id number] Care Teams Wireless Network Engineer Relationship Specialty Start Date End Date Jenny Vázquez MD [address] [place] [phone] PCP - General Family Medicine 04/13/18
[2025-02-24 08:12] VITALS: BMI 32.2
--- NOTE | 2025-02-24 11:50 | HO.ANESPROP2 ---
Documented by User: Genet Roper NP 02/27/25 08:46 HPI - Anesthesia Eval Consult details Narrative: 70yo F for Colonoscopy 01/2025 pt having CP at cardiac rehab. Cardiac office visit 02/24/25 @ 0015 - medically manage at this time becuase recent cath OK. Optimized to proceed with colo 11/2024 Cardiac w/u for exertional CP including cath. Last visit note 11/2024 states optimized for general surgery. Follows for: history of coronary artery disease with prior stents in the LAD,RCA and OM1, history of PVCs ablation, left bundle branch block, and sleep apnea Anesthesia Pre-Procedure Meds Is the patient on any of the following meds?: GLP1/DPP4 PMFSH Active Problems Active Problems: All Active Problems Ganglion cyst of volar aspect of right wrist (Acute) Arthritis of carpometacarpal (CMC) joint of left thumb (Acute) LBBB (left bundle branch block) (Acute) Pre-op examination (Acute) T2DM (type 2 diabetes mellitus) (Acute) Stented coronary artery (Acute) Frequent PVCs (Acute) Chest discomfort (Acute) Delayed gastric emptying (Acute) Left hand pain (Acute) Ganglion cyst of volar aspect of left wrist (Acute) Tubular adenoma of colon (Acute) Fracture of scaphoid of right wrist (Acute) Atherosclerotic cardiovascular disease (Acute) Headache (Acute) Hemorrhoids with complication (Acute) Lumbago with sciatica, left side (Acute) Elevated parathyroid hormone (Acute) NIDDY (non-insulin dependent diabetes mellitus in young) (Acute) Chronic idiopathic constipation (Acute) Right upper quadrant abdominal pain (Acute) GERD (gastroesophageal reflux disease) (Acute) COPD (chronic obstructive pulmonary disease) (Acute) GUADALUPE (obstructive sleep apnea) (Acute) Obesity (BMI 30-39.9) (Acute) Hemorrhoids with complication (Acute) GUADALUPE (obstructive sleep apnea) (Acute) NSVT (nonsustained ventricular tachycardia) (Acute) PVC (premature ventricular contraction) (Acute) Past Medical History Medical History Stable angina COVID-19 Palpitation Precordial chest pain Hemorrhoids Abdominal bloating Abdominal cramping Back pain Encounter for monitoring anti-arrhythmic therapy Fracture of proximal phalanx of right ring finger Syncope and collapse Acute non-ST elevation myocardial infarction (NSTEMI) Fracture of lesser tuberosity of right humerus Fracture of proximal end of right humerus Family history of ovarian cancer Early satiety COPD (chronic obstructive pulmonary disease) Cataract GUADALUPE (obstructive sleep apnea) Obesity (BMI 30-39.9) Hemorrhoids with complication NSVT (nonsustained ventricular tachycardia) PVC (premature ventricular contraction) Family History Family History Father Cardiovascular disease Mother Osteoarthritis Family/Other Ovarian cancer, Onset Age: 30 Surgical History Surgical History History of cardiac cath S/P ablation of ventricular arrhythmia S/P cardiac cath S/P cardiac catheterization History of coronary artery stent placement History of esophagogastroduodenoscopy (EGD) Hx of colonoscopy History of shoulder surgery (~04/29/18) History of lumbar laminectomy Social History Social History Household Members: Spouse Alcohol intake: never Patient Tobacco Use Status: Never used Tobacco Use of substances other than those prescribed or required for medical reasons: No Advance Directives: No Advance Directives Information Provided: Yes service: No Current occupational status: unemployed Current occupation: rt handed Meds Allergies Allergy/AdvReac Type Severity Reaction Status Date / Time peanut Allergy Severe angioedema Verified 02/24/25 14:15 lisinopril (LISINOPRIL) Allergy Intermediate RASH, cough Verified 02/24/25 14:15 zoster vaccine live Allergy Intermediate LOCALIZED Verified 02/24/25 14:15 (SHINGLES VACCINE) REDNESS, SWELLING, FEVER,COUGH latex (LATEX) Allergy Unknown RASH Verified 02/24/25 14:15 pineapple (PINEAPPLE) Allergy Unknown RASH Verified 02/24/25 14:15 strawberry (STRAWBERRY) Allergy Unknown RASH Verified 02/24/25 14:15 adhesive Allergy Blister Verified 02/24/25 14:15 Home Medications ?Medication ?Instructions ?Recorded ?Confirmed ?Last Taken ?Type loratadine 10 mg tablet 10 mg PO BEDTIME 02/09/20 02/24/25 09/17/21 History pregabalin 50 mg capsule (Lyrica) 50 mg PO BID 02/09/20 02/24/25 09/17/21 History albuterol sulfate 90 mcg/actuation 2 puff PO Q4H 09/26/21 02/24/25 Unknown History aerosol inhaler (ProAir HFA) lidocaine 5 % topical ointment 1 appl topical DAILY PRN Pain 10/20/22 02/24/25 Unknown History fluticasone propionate 50 2 spray intranasal DAILY 11/03/22 02/24/25 Unknown History mcg/actuation nasal spray,suspension tiotropium bromide 1.25 2 puff inhalation DAILY 11/19/22 02/24/25 Unknown History mcg/actuation mist for inhalation (Spiriva Respimat) semaglutide 0.25 mg or 0.5 mg (2 mg subcut 04/18/24 02/24/25 Unknown History mg/3 mL) subcutaneous pen injector ([employer] Software) Exam Height,Weight and Vital Signs: Height 5 ft 3 in Weight 82.554 kg Pertinent Lab Results Pertinent Lab Results: Laboratory Tests 10/26/24 11/23/24 15:12 13:40 WBC 11.1 H Hgb 12.8 Hct 40.8 Plt Count 260 Sodium 141 Potassium 4.3 Chloride 109 H Carbon Dioxide 25 BUN 22 H Creatinine 0.90 Narrative Narrative: EKG 09/2024 Vent. Rate : 95 BPM Atrial Rate : 95 BPM P-R Int : 230 ms QRS Dur : 134 ms QT Int : 394 ms P-R-T Axes : 24 12 91 degrees QTcB Int : 495 ms Sinus rhythm with 1st degree A-V block Left bundle branch block Abnormal ECG When compared with ECG of 26-Sep-2024 15:40, No significant change was found ECHO 10/2024 Conclusions: - The left ventricular systolic function is low normal. The visually estimated ejection fraction is between 50-55%. - The basal inferolateral segment is akinetic. - No obvious valvular pathology seen on this study. Cardiac Cath 10/2024 This revealed patent stents in the proximal to distal RCA, lad and circumflex. With 40-50% stenosis in the ostial circumflex, unchanged from her previous cardiac catheterization. Assessment and Plan Assessment Anesthesia Assessment: Chart Reviewed Documented by User: Angie Lepe MD 02/28/25 09:37 [facility] Past Medical History Medical History Stable angina COVID-19 Palpitation Precordial chest pain Hemorrhoids Abdominal bloating Abdominal cramping Back pain Encounter for monitoring anti-arrhythmic therapy Fracture of proximal phalanx of right ring finger Syncope and collapse Acute non-ST elevation myocardial infarction (NSTEMI) Fracture of lesser tuberosity of right humerus Fracture of proximal end of right humerus Family history of ovarian cancer Early satiety COPD (chronic obstructive pulmonary disease) Cataract GUADALUPE (obstructive sleep apnea) Obesity (BMI 30-39.9) Hemorrhoids with complication NSVT (nonsustained ventricular tachycardia) PVC (premature ventricular contraction) Family History Family History Father Cardiovascular disease Mother Osteoarthritis Family/Other Ovarian cancer, Onset Age: 30 Surgical History Surgical History History of cardiac cath S/P ablation of ventricular arrhythmia S/P cardiac cath S/P cardiac catheterization History of coronary artery stent placement History of esophagogastroduodenoscopy (EGD) Hx of colonoscopy History of shoulder surgery (~04/29/18) History of lumbar laminectomy History of Problems with Anesthesia: No Social History Social History Household Members: Spouse Alcohol intake: never Patient Tobacco Use Status: Never used Tobacco Use of substances other than those prescribed or required for medical reasons: No Advance Directives: No Advance Directives Information Provided: Yes service: No Current occupational status: unemployed Current occupation: rt handed Meds Allergies Allergy/AdvReac Type Severity Reaction Status Date / Time peanut Allergy Severe angioedema Verified 02/24/25 14:15 lisinopril (LISINOPRIL) Allergy Intermediate RASH, cough Verified 02/24/25 14:15 zoster vaccine live Allergy Intermediate LOCALIZED Verified 02/24/25 14:15 (SHINGLES VACCINE) REDNESS, SWELLING, FEVER,COUGH latex (LATEX) Allergy Unknown RASH Verified 02/24/25 14:15 pineapple (PINEAPPLE) Allergy Unknown RASH Verified 02/24/25 14:15 strawberry (STRAWBERRY) Allergy Unknown RASH Verified 02/24/25 14:15 adhesive Allergy Blister Verified 02/24/25 14:15 Home Medications ?Medication ?Instructions ?Recorded ?Confirmed ?Last Taken ?Type loratadine 10 mg tablet 10 mg PO BEDTIME 02/09/20 02/24/25 09/17/21 History pregabalin 50 mg capsule (Lyrica) 50 mg PO BID 02/09/20 02/24/25 09/17/21 History albuterol sulfate 90 mcg/actuation 2 puff PO Q4H 09/26/21 02/24/25 Unknown History aerosol inhaler (ProAir HFA) lidocaine 5 % topical ointment 1 appl topical DAILY PRN Pain 10/20/22 02/24/25 Unknown History fluticasone propionate 50 2 spray intranasal DAILY 11/03/22 02/24/25 Unknown History mcg/actuation nasal spray,suspension tiotropium bromide 1.25 2 puff inhalation DAILY 11/19/22 02/24/25 Unknown History mcg/actuation mist for inhalation (Spiriva Respimat) semaglutide 0.25 mg or 0.5 mg (2 mg subcut 04/18/24 02/24/25 Unknown History mg/3 mL) subcutaneous pen injector (Ozempic) Exam Airway Mallampati Class: II TM Dist: >3cm Neck ROM: Full Loose/Missing/Broken Teeth: No Heart: RRR Lungs: CTA Assessment and Plan Assessment Anesthesia Assessment: Anesthesia Plan Discussed Final Anesthetic Review History of Problems with Anesthesia: No NPO: Yes ASA Class: III Final Preanesthetic Review: Meds/Allgs Chart Reviewed, Consent Obtained/Reviewed and Anes Risks/Benef Reviewed Patient Risk: Intermediate Procedure Risk: Low Anesthetic Plan Anesthetic Plan: MAC: Disposition: Standard PACU
--- NOTE | 2025-02-28 07:57 | MHC.SHP ---
Pre-Procedural Eval Section A - 24 Hr Update-Section A only Date of Service: 02/28/25 Section B - Complete if H&P > 30 days Chief Complaint: History of polyps Details of Present Illness: COVID-19 Palpitation Precordial chest pain Hemorrhoids Abdominal bloating Abdominal cramping Back pain Encounter for monitoring anti-arrhythmic therapy Fracture of proximal phalanx of right ring finger Syncope and collapse Acute non-ST elevation myocardial infarction (NSTEMI) Fracture of lesser tuberosity of right humerus Fracture of proximal end of right humerus Family history of ovarian cancer Early satiety COPD (chronic obstructive pulmonary disease) Cataract GUADALUPE (obstructive sleep apnea) Obesity (BMI 30-39.9) Hemorrhoids with complication GUADALUPE (obstructive sleep apnea) Hemorrhoids with complication NSVT (nonsustained ventricular tachycardia) PVC (premature ventricular contraction) Surgical History (Updated 08/03/24 @ 15:03 by DYLAN Torres) History of cardiac cath S/P ablation of ventricular arrhythmia S/P cardiac cath S/P cardiac catheterization History of coronary artery stent placement History of esophagogastroduodenoscopy (EGD) Hx of colonoscopy History of shoulder surgery (~04/29/18) History of lumbar laminectomy Present Medications: see Short Stay Collaborative assessment Allergies: Allergies Allergy/AdvReac Type Severity Reaction Status Date / Time peanut Allergy Severe angioedema Verified 02/24/25 14:15 lisinopril (LISINOPRIL) Allergy Intermediate RASH, cough Verified 02/24/25 14:15 zoster vaccine live Allergy Intermediate LOCALIZED Verified 02/24/25 14:15 (SHINGLES VACCINE) REDNESS, SWELLING, FEVER,COUGH latex (LATEX) Allergy Unknown RASH Verified 02/24/25 14:15 pineapple (PINEAPPLE) Allergy Unknown RASH Verified 02/24/25 14:15 strawberry (STRAWBERRY) Allergy Unknown RASH Verified 02/24/25 14:15 adhesive Allergy Blister Verified 02/24/25 14:15 Review of Systems Review of Systems Comment: Ten point ROS negative Exam Exam Comment: Gen appear: No acute distress HEENT: no icterus Chest: No overt resp distress Abd: soft, nontender, nondistended Psych: Stable affect, answering questions appropriately Neuro: A/Ox3 noted to move all extremities spontaneously Ext: no peripheral edema Plan Diagnosis/Plan: Unchanged I have reviewed the history and physical and performed a pertinent physical examination on my patient. No changes have occurred unless specified. Time Spent With Patient Time: Total time managing care of this patient today ____ minutes.
[2025-02-28 08:28] VITALS: BP 120/70; PULSE 66; RESP 16; TEMP 36; O2SAT 96
[2025-02-28] MEDS: Lactated Ringers 1,000 ML 100 ML IVCONT (08:28)
[2025-02-28 09:29] LABS: Glucose, Whole Blood 107 mg/dL (60-115)
--- NOTE | 2025-02-28 10:08 | P.OPN-COLO_ITS ---
Colonoscopy Operative Note Operative Note Date of Service: 02/28/25 Narrative: Procedure: Colonoscopy Indication: Personal hx of polyps Endoscopist: Vidya Fraga MD Anesthesia Provider: Devante Contreras CRNA Anesthesia type: MAC Instrument: Olympus PCF-H190L, [id number] Consent: Indication, risks vs benefits, and alternatives were discussed with the patient who gave written informed consent to proceed. EKG, pulse, pulse oximetry and blood pressure were monitored throughout the procedure. Please see anesthesia flowsheet. Procedure: The patient was brought to the procedure room and placed in the left lateral decubitus position. IV medications were administered by the anesthesia provider in attendance. A digital rectal exam was performed which was abnormal due to finding of hemorrhoids. A distal attachment cap was affixed to the tip of the colonoscope which was then inserted through the anus and advanced through the colon but could not be advanced beyond hepatic flexure. The scope was then changed to adult scope and cecum was reached at 80 cm. Appendiceal orifice and ileocecal valve were identified. Mucosa was carefully examined under high definition white light as the instrument was slowly withdrawn in a retrograde panoramic fashion. Retroflexion was performed in rectum. The procedure was somewhat difficult and required pressure and adult scope to intubate the cecum. There were no immediate obvious complications. The quality of the prep was BBPS: 1+2+1 = inadequate Withdrawal time 10 minutes. Limitations: No limitations. Findings: Mucosa: Copious liquid opaque stool in the colon letitia in cecal pouch and left colon. Protruding lesions: * 1 sessile polyp of size 2 mm in descending colon. Cold snare polypectomy was performed. The polyp was completely removed but not retrieved. * Medium internal hemorrhoids without stigmata of recent bleeding. Excavated lesions: * Few diverticulosis of left sided colon. Impression: 1. Poor prep 2. Total of 1 polyp removed but not retrieved. 3. Diverticulosis 4. External and internal hemorrhoids Recommendations: - Repeat colonoscopy in 1-2 years due to poor prep.
[2025-02-28 10:09] VITALS: BP 98/57; PULSE 72; RESP 14; TEMP 36.1; O2SAT 97
[2025-02-28 10:24] VITALS: BP 100/60; PULSE 72; RESP 16; TEMP 36.1; O2SAT 99
== END 2025-02-28 10:49 | disposition home or self-care (01) ==
PROVIDERS: PCP Family Medicine; Visit Provider Internal Medicine
PROC: 0DJD8ZZ Inspection of Lower Intestinal Tract, Via Natural or Artificial Opening Endoscopic (ICD-10-PCS; CPT 45378; principal; 2025-02-28 09:20)
DX: Z12.11 Encounter for screening for malignant neoplasm of colon (principal); Z86.0101 Personal history of adenomatous and serrated colon polyps; K59.04 Chronic idiopathic constipation; K64.8 Other hemorrhoids; K64.4 Residual hemorrhoidal skin tags
CPT/HCPCS: 45385; 82947; J2704

== ENCOUNTER → 2025-02-28 07:28 | Outpatient (BNV) | payer MEDICARE, SELFPAY | PROVIDERS: PCP Family Medicine; Visit Provider Internal Medicine | DX: Z12.11 Encounter for screening for malignant neoplasm of colon (principal); K63.5 Polyp of colon; K64.8 Other hemorrhoids; K57.90 Diverticulosis of intestine, part unspecified, without perforation or abscess without bleeding; Z91.199 Patient's noncompliance with other medical treatment and regimen due to unspecified reason | CPT/HCPCS: 45385 ==

== ENCOUNTER 2025-03-07 14:06 | Outpatient (REF) | payer MEDICARE, SELFPAY ==
--- NOTE | ~2025-03-07 | MM_ITS ---
EXAMINATION: MM SCREENING DIGITAL BREAST TOMOSYNTHESIS, BILATERAL CLINICAL INFORMATION: Screening. Asymptomatic. COMPARISON: Comparison made to multiple prior, most recent February 12, 2024, and most remote August 07, 2017. TECHNIQUE: Digital breast tomosynthesis is performed in mediolateral oblique and craniocaudal views along with computer-aided detection (CAD). Synthesized 2D images are generated from the tomosynthesis. FINDINGS: BREAST COMPOSITION: There are scattered areas of fibroglandular density. BILATERAL BREASTS: No significant masses, suspicious calcifications or other abnormalities are seen in either breast. MM/MM tomosynthesis screening BI IMPRESSION: BILATERAL BREASTS: Negative, no mammographic evidence of malignancy. Normal interval follow-up is recommended in 12 months. ASSESSMENT: BI-RADS: Category 1: Negative RECOMMENDATION: Routine annual mammography screening. FOLLOW-UP: 1 year F/U This examination should not preclude the clinical evaluation of a suspicious palpable abnormality. This patient's information was entered into a reminder system with a target due date for their next mammogram. Electronically signed by: Keke Desir MD 03/08/2025 05:56 PM [facility]
--- OUTSIDE RECORDS SUMMARY | 2025-03-07 18:01 | XMS_ITS | Encounter Summary ---
Author Organization [employer] Address [address] [facility] [address] [place] [address] Care Team Providers Care Ios Programmer Name Role Phone Jenny Vázquez MD Primary Care Provider [phone] Encounter Details Date Type Department Care Team (Late st Contact Info) Description 03/10/2023 Abstract [facility] [address] [place] [address] Nathanael Crespo DDS [address] [place] [address] Social History Tobacco Use Types Packs/Day Years [...] Care Team (Late st Contact Info) Description 07/24/2025 12:45 PM EDT Office Visit [facility] [address] [place] [address] Marialuisa Parsons documented as of this encounter Visit Diagnoses Not on filedocumented in this encounter Additional Health Concerns Assessment Noted Time PHQ-9 Depression Total Score: 0 10/22/19 23 1:17 PM EDT documented as of this encounter Care Teams Ios Programmer Relationship Specialty Start Date End Date Jenny Vázquez MD [address] [place] [address] PCP - General Family Medicine 04/13/18 documented as of this encounter
--- OUTSIDE RECORDS SUMMARY | 2025-03-07 18:01 | XMS_ITS | Encounter Summary ---
Author Organization [employer] Address [address] [facility] 7t [place] [address] Care Team Providers Care Diversional Therapist Name Role Phone Jenny Vázquez MD Primary Care Provider [phone] Reason for Visit * Reason Comments Med Change Request Encounter Details Date Type Department Care Team (Late st Contact Info) Description 11/23/2024 Refill [facility] [address] [place] [address] Jenny Vázquez MD [address] [place] [address] Social History Tobacco Use Types Packs/Day Years [...] Description 07/24/2025 12:45 PM EDT Office Visit [facility] [address] [place] [address] Marialuisa Parsons documented as of this encounter Visit Diagnoses Not on filedocumented in this encounter Additional Health Concerns Assessment Noted Time PHQ-9 Depression Total Score: 16 025 2:05 PM EST documented as of this encounter Care Teams Diversional Therapist Relationship Specialty Start Date End Date Jenny Vázquez MD [address] [place] [address] PCP - General Family Medicine 04/13/18 documented as of this encounter
--- OUTSIDE RECORDS SUMMARY | 2025-03-07 18:01 | XMS_ITS | Encounter Summary ---
Author Organization [employer] Address [address] [place] [address] 7[address] [place] [address] Care Team Providers Care Shuttle Bus Driver Name Role Phone Jenny Vázquez MD Primary Care Provider [phone] Encounter Details Date Type Department Care Team (Late st Contact Info) Description 10/31/2022 Abstract [facility] [address] [place] [address] Jenny Vázquez MD [address] [place] [address] Social History Tobacco Use Types Packs/Day Years [...] Description 07/24/2025 12:45 PM EDT Office Visit [facility] [address] [place] [address] Marialuisa Parsons documented as of this encounter Procedures Procedure Name Priority Date/Time Associated Diagnosis Comments PAP/HPV Routine 10/02/2022 documented in this encounter Results * Pap Smear (10/02/2022) Pap Negative for intraephithelial lesion or malignancy Negative for intraephithelial lesion or malignancy, Other HPV Undetected Result [facility] Unassigned Pcp HEALTH MAINTENANCE Final Result documented in this encounter Visit Diagnoses Not on filedocumented in this encounter Additional Health Concerns Assessment Noted Time PHQ-9 Depression Total Score: 0 10/22/19 23 1:17 PM EDT documented as of this encounter Care Teams Shuttle Bus Driver Relationship Specialty Start Date End Date Jenny Vázquez MD [address] [place] [address] PCP - General Family Medicine 04/13/18 documented as of this encounter
--- OUTSIDE RECORDS SUMMARY | 2025-03-07 18:01 | XMS_ITS | Encounter Summary ---
Author Organization [employer] Address [address] [facility] 7[address] [place] [address] Care Team Providers Care Shop Welder Name Role Phone Jenny Vázquez MD Primary Care Provider [phone] Reason for Visit * Reason Onset Date Comments Nurse Triage 03/09/2023 Encounter Details Date Type Department Care Team (Late st Contact Info) Description 03/09/[address] [facility] [address] [place] [address] Jenny Vázquez MD [address] [place] [address] Nurse Triage Social History Tobacco Use Types [...] call Pt reports was [place] [facility] [place] and tested positive for Covid. Pt [...] needed. Follow up ED visit apt with PSYCHIATRIC CNS [facility] 03/19/23 @ 115pm. Insurance is verified asactive prior to booking. Protocol Used: COVID-19 - Diagnosed or Suspected (Adult) Protocol-Based Disposition: Home Care Positive Triage Question: * COVID-19 diagnosed by doctor (or PSYCHIATRIC CNS/PA) and mild symptoms (e.g., cough, fever, others) and no complications or SOB * All higher-acuity triage questions were negative Care Advice Discussed: * Reassurance and Education - Diagnosed With COVID-19 by Doctor (or PSYCHIATRIC CNS/PA) and Mild Symptoms * General Care Advice [...] whistling sound), pt was seen at [facility] [place] for asthma. Pt was tested positive for COVID and is still symptomatic. The caller accepted this outcome Please contact pt at [phone] documented in this encounter Plan of Treatment Upcoming Encounters Date Type Department Care Team (Late st Contact Info) Description 07/24/2025 12:45 PM EDT Office Visit [facility] [address] [place] [address] Marialuisa Parsons documented as of this encounter Visit Diagnoses Not on filedocumented in this encounter Additional Health Concerns Assessment Noted Time PHQ-9 Depression Total Score: 0 10/22/19 23 1:17 PM EDT documented as of this encounter Care Teams Shop Welder Relationship Specialty Start Date End Date Jenny Vázquez MD [address] [place] [address] PCP - General Family Medicine 04/13/18 documented as of this encounter
--- OUTSIDE RECORDS SUMMARY | 2025-03-07 18:01 | XMS_ITS | Encounter Summary ---
Author Organization [employer] Address [address] [facility] [address]t [place] [address] Care Team Providers Care Legal Aide Name Role Phone Jenny Vázquez MD Primary Care Provider [phone] Encounter Details Date Type Department Care Team (Late st Contact Info) Description 03/09/2023 Abstract [facility] [address] [place] [address] Nathanael Crespo DDS [address] [place] [address] Social History Tobacco Use Types Packs/Day Years [...] Description 07/24/2025 12:45 PM EDT Office Visit [facility] [address] [place] [address] Marialuisa Parsons documented as of this encounter Visit Diagnoses Not on filedocumented in this encounter Additional Health Concerns Assessment Noted Time PHQ-9 Depression Total Score: 0 10/22/19 23 1:17 PM EDT documented as of this encounter Care Teams Legal Aide Relationship Specialty Start Date End Date Jenny Vázquez MD [address] [place] [address] PCP - General Family Medicine 04/13/18 documented as of this encounter
--- OUTSIDE RECORDS SUMMARY | 2025-03-07 18:01 | XMS_ITS | Encounter Summary ---
Author Organization [employer] Address [address] [place] [address] [address]t [place] [address] Care Team Providers Care Hot Bread Baker Name Role Phone Jenny Vázquez MD Primary Care Provider Encounter Details Date Type Department Care Team (Late st Contact Info) Description 04/29/2022 Orders Only [facility] [address] [place] [address] Lorraine Arroyo LPN Social History Tobacco Use [...] Office Visit [facility] [address] [place] [address] Marialuisa Parsons documented as of this encounter Procedures Procedure Name Priority Date/Time Associated Diagnosis Comments LIPID PANEL, STANDARD Routine 11/05/2022 8:43 AM EDT PAP SMEAR Routine 10/02/2022 3:36 PM EDT documented in this encounter Results * Lipid Panel, Standard (11/05/2022 8:43 AM EDT) Triglycerides 76 mg/dL [facility] Comment:Desirable Triglyceri de: less than 150 mg/dLBorderline High Triglyceride 150-199 mg/dLHigh Triglyceride: 200-499 mg/dLVery High Triglyceride: greater than or equal to 5OO mg/dL Cholesterol 118 mg/dL [facility] Comment:Desirable Cholestero l: less than 200 mg/dLBorderline High Cholesterol: 200-239 mg/dLHigh Cholesterol: greater than 239 mg/dL LDL Cholesterol Calculated 56 mg/dl [facility] Comment:Desirable LDL: less than 100 mg/dLNear Optimal/Above Optimal LDL: 110- 129 mg/dLBorderline High LDL: 130-159 mg/dLHigh LDL: 160-189 mg/dLVery High LDL: greater than or equal to 190 mg/dL HDL Cholesterol 47 mg/dL [facility] Comment:Desirable HDL: great er than 40 mg/dL Note: This HDL assay may give artificially low results in patients with liver disease. 11/05/2022 8:43 AM EDT 11/05/2022 11:40 AM EDT us Jenny Vázquez MD LAB BLOOD ORDERABLES Final Resul t [facility] [address] [place] [phone] * Pap Smear (10/02/2022 3:36 PM EDT) 10/02/2022 3:36 PM EDT 10/06/2022 12:00 PM EDT Narrative [facility] - 10/27/2022 10:49 AM EDT ----- ------- Name: Araseli Leary Age/Sex: 67/F : 1955 Unit#: [id number] Attend Dr: Argentina Mak CNM Re10/02/22 Status: DEP REF Location: [facility] Disch: ----- ------- SPEC : [id number] RECD: 10/06/22-1200 STATUS: GABRIELA JAVIER NUM: [id number] TODD: 10/02/22-[address] [facility] [address]: Argentina Mak CNM ENTERED: 10/06/22-1318 [...] 60, 66, 69) HPV testing performed by [facility], [place], [place]. See reference laboratory portion of the EMR for entire report. Clinical Information LMP: Menopausal Previous PAP test: 2018, [facility] Material Received ThinPrep-Cervical Copies To: Argentina Mak CNM [address] [place] [address] Dr. Lamb [address] [place] [address] [phone] Jenny Vázquez MD [address] [place] [phone] ----- ------- Signed (signature on file) Berlin Rodriguez MD 10/27/22 1049 ----- ------- END OF REPORT [facility] External Provider LAB [facility] ORDERABLES Final Result [facility] [address] [place] [phone] [phone] documented in this encounter Visit Diagnoses Not on filedocumented in this encounter Care Teams Hot Bread Baker Relationship Specialty Start Date End Date Jenny Vázquez MD [address] [place] [phone] PCP - General Family Medicine 04/13/18 documented as of this encounter
--- OUTSIDE RECORDS SUMMARY | 2025-03-07 18:01 | XMS_ITS | Encounter Summary ---
Author Organization [employer] Address [address] [facility] [address]t [place] [address] Care Team Providers Care Product Technology Scientist Name Role Phone Jenny Vázquez MD Primary Care Provider [phone] Reason for Visit * Reason Comments Med Refill Encounter Details Date Type Department Care Team (Late st Contact Info) Description 04/17/2023 Refill [facility] [address] [place] [address] Jenny Vázquez MD [address] [place] [address] Fibromyalgia Social History Tobacco Use Types Packs/Day [...] Description 07/24/2025 12:45 PM EDT Office Visit [facility] [address] [place] [address] Marialuisa Parsons documented as of this encounter Visit Diagnoses Diagnosis Fibromyalgia Unspecified myalgia and myositis documented in this encounter Additional Health Concerns Assessment Noted Time PHQ-9 Depression Total Score: 0 10/22/19 23 1:17 PM EDT documented as of this encounter Care Teams Product Technology Scientist Relationship Specialty Start Date End Date Jenny Vázquez MD [address] [place] [address] PCP - General Family Medicine 04/13/18 documented as of this encounter
--- OUTSIDE RECORDS SUMMARY | 2025-03-07 18:01 | XMS_ITS | Encounter Summary ---
Author Organization [employer] Address [address] [facility] [address] [place] [address] Care Team Providers Care Sheet Rock Taper Name Role Phone Jenny Vázquez MD Primary Care Provider Reason for Visit * Reason Onset Date Comments Med Refill 06/08/2023 Encounter Details Date Type Department Care Team (Late st Contact Info) Description 06/08/2023 Refill [facility] [address] [place] [address] Loyda Clark MD [address] [place] [address] Fibromyalgia Social History Tobacco Use Types Packs/Day [...] Description 07/24/2025 12:45 PM EDT Office Visit [facility] [address] [place] [address] Marialuisa Parsons documented as of this encounter Visit Diagnoses Diagnosis Fibromyalgia Unspecified myalgia and myositis documented in this encounter Additional Health Concerns Assessment Noted Time PHQ-9 Depression Total Score: 0 10/22/19 23 1:17 PM EDT documented as of this encounter Care Teams Sheet Rock Taper Relationship Specialty Start Date End Date Jenny Vázquez MD [address] [place] [address] PCP - General Family Medicine 04/13/18 documented as of this encounter
--- OUTSIDE RECORDS SUMMARY | 2025-03-07 18:01 | XMS_ITS | Clinical Summary ---
Author Organization [email or web address] Address [address] [place] [address] 7[address] [place] [address] Care Team Providers Care Front Line Leader Name Role Phone Jenny Vázquez MD Primary Care Provider [phone] Allergies Active Allergy Reactions Criticality Noted Date Comments Martir Inhibitors 04/21/2022 Ascorbate 02/05/2024 Latex 02/05/2024 Lisinopril Hives 02/18/2023 New Skin 02/05/2024 Peanut Oil 04/21/2022 Peanut-Containing Drug Products 01/12 Pineapple 02/05/2024 [place] Extract Other 02/08/2024 Zoster Vaccine Live 12/12/2016 [...] MORNING 90 tablet 3 10/07/19 23 Active metoprolol succinate XL (Toprol-XL) 50 [...] bedtime. 90 tablet 3 02/08/20 24 Active semaglutide (Ozempic) 2 MG/1.5ML solution pen-injector Inject 0.5 mg under the skin 1 (one) time per week. 1.5 mL 11 06/06/19 25 Active triamcinolone (Kenalog) 0.1 % ointment APPLY TO THE AFFECTED AREA(S) TWICE DAILY 453 g 3 10/12/19 Active Alcohol Swabs (Alcohol Prep) pads Check blood sugar once daily and as needed 100 each 10/12/19 Active FreeStyle lancets 1 each by Other route Once per day. Check blood glucose 100 each 10/12/19 Active FREESTYLE LITE test strip Check blood glucose 100 each 10/12/19 Active sertraline (Zoloft) 25 MG tablet 10/11/19 [...] daily. 60 capsule 3 02/15/20 25 Active clopidogrel (Plavix) 75 MG tablet TAKE 1 TABLET BY MOUTH ONCE DAILY 90 tablet 3 11/04/19 23 2024 Discontinued(M ed list cleanup (will not trigger notification to Pharmacy)) colchicine 0.6 MG tablet TAKE 1 TABLET BY MOUTH EVERY DAY FOR 7 DAYS 12/22/19 24 2024 Discontinued(M ed list cleanup (will not trigger notification to Pharmacy)) EPINEPHrine (Epipen) 0.3 MG/0.3ML injection syringe USE [...] of left wrist 10/11 Assessment & Plan (02/19/2025 11:00 AM EST): - previously seen by [facility] Ortho. Surgical excisional biopsy was recommended, but postponed due to her cardiac condition. Recently seen by [facility] orthopedist again for possible surgical excisional biopsy. Due to her high risk factors, they agreed to manage it conservatively at this time Assessment & Plan (10/24/2024 5:04 AM EDT): - previously seen by [facility] Ortho. Surgical excisional biopsy was recommended, but [...] baking, cleaning her home and listening to synagogue music. Araseli reports taking medication prescribed by her PCP and having improvements from them. clinician will provide additional support if needed during next medical appointment. Ischemic heart disease 08/05/2022 Assessment & Plan (02/14/2025 9:36 AM EST): -Channel Machine Operator[facility] Janna Cruz NP, last seen [...] discontinued when she was last seen by spring internship in Apr 2024. -Continue Metoprolol, ASA and Atorvastatin -Continue isosorbide for antianginal effect. Recently increased dose to 90 mg daily. -Cont working on lifestyle modifications. Assessment & Plan (10/24/2024 5:09 AM EDT): -Channel Machine Operator: Dr. Arsenio Bernard and Janna Cruz NP, [...] discontinued when she was last seen by spring internship in Apr 2024. -Continue Metoprolol, ASA and Atorvastatin -Continue isosorbide for antianginal effect. Recently increased dose to 90 mg daily. -Cont working on lifestyle modifications. Assessment & Plan (06/06/2024 3:21 PM EST): -Channel Machine Operator: Dr. Arsenio TAPIA and Janna Cruz NP, [...] discontinued when she was last seen by spring internship in Apr 2024. -Continue Metoprolol, ASA and Atorvastatin -Continue isosorbide -Cont working on lifestyle modifications. Assessment & Plan (02/15/2024 1:39 PM EST): -Channel Machine Operator: Dr. Arsenio Bernard, last seen on 01/08/23 [...] Assessment & Plan (01/28/2023 8:56 PM EDT): -Channel Machine Operator: Dr. Arsenio TAPIA, last seen on 01/08/23 [...] Assessment & Plan (10/28/2022 7:06 AM EDT): -Channel Machine Operator: [facility], Dr. Cesar, last seen on 08/05/22; upcoming [...] Assessment & Plan (08/15/2022 6:38 AM EDT): -Channel Machine Operator: [facility], Dr. Cesar, appt today - NSTEMI in [...] on 10/20/22. Being scheduled for Pre-Op with Channel Machine Operator. Pt needs Cardiac Clearance Before Hemorrhoidectomy. - [...] tachycardia (CMS/HCC) 0 05/29/2017 Assessment & Plan (02/19/2025 10:49 AM EST): - previously on Fleicanide, which [...] findings to indicate cause of frequent PVCs. - 15 Day Loop monitor in December 2024 showed 1.42% PVC. 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 -Last microalbumin test: 06/07/24 UACR TNP [...] May 2024, plantar fasciitis, ingrown toenail, sees accounts receivable representative. -Last microalbumin test: 06/07/24 UACR TNP [...] May 2024, plantar fasciitis, ingrown toenail, sees accounts receivable representative. -Last microalbumin test: 11/05/22 UACR 4.9; [...] exam: 08/05/22, plantar fasciitis, ingrown toenail, sees accounts receivable representative. -Last microalbumin test: 11/05/22 UACR 4.9; [...] exam: 08/05/22, plantar fasciitis, ingrown toenail, sees accounts receivable representative. -Last microalbumin test: 11/05/22 UACR 4.9; [...] exam: 08/05/22, plantar fasciitis, ingrown toenail, sees accounts receivable representative. -Last microalbumin test: 10/25/18 UACR no [...] exam: 08/05/22, plantar fasciitis, ingrown toenail, sees accounts receivable representative. 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 Cesar, on 01/09/22 for CAD and PVC f/u: -TTE was ordered by Channel Machine Operator -most recent Holter monitor in Dec 2019 PVC 3%. -09/20/21 Echo LVEF 45-50%, p/s Stent -Continue metoprolol succinate 50 mg TWO tablets daily -Continue BB -Previously flecainide 100 mg BID. d/c d/t hospitalization Fibromyalgia 07/20/2014 Assessment & Plan (02/19/2025 11:00 AM EST): Followed by [employer] -Continue pregabalin, use judiciously -Continue staying active Assessment & Plan (06/06/2024 3:28 PM EST): Followed by [employer] -Continue Lyrica, use judiciously -Continue staying active Assessment & Plan (02/10/2024 8:12 AM EDT): Followed by [employer] -Continue Lyrica, use judiciously -Continue staying active Assessment & Plan (08/05/2022 9:27 AM EDT): Followed by [employer] -Continue Lyrica, use judiciously -Continue staying active Allergic rhinitis 03/24/2013 Assessment & Plan (02/15/2024 1:48 PM EST): - continue loratadine and montelukast - following with clinical specialist vascular Assessment & Plan (10/21/2022 2:19 PM EDT): - continue loratadine and montelukast - will check status of referral Assessment & Plan (08/15/2022 6:43 AM EDT): - continue loratadine and montelukast - refer to a new clinical specialist vascular Depression 03/24/2013 Assessment & Plan (02/19/2025 10:58 AM EST): - Continue taking sertraline Hypertension 03/24/2013 Assessment & Plan (02/19/2025 10:50 AM EST): - Goal BP < 130/80 per ACC/AHA - BP at goal -Continue Metoprolol succinate 50 mg 3 times daily -Continue Lifestyle modifications -Continue monitoring BP at home -Previously tried ARB, ACEI, and HCTZ -Discontinued ACEI due to cough Assessment & Plan (10/24/2024 5:16 AM EDT): [...] 3-6 mo or sooner prn Obesity 03/24/2013 Assessment & Plan (02/19/2025 10:56 AM EST): - Continue working on lifestyle modifications. -Currently on semaglutide for diabetes. Patient has made a marked progress with GLP-1 RA - She is also working with RD - Generic advice as below. Patient is going to cardiac rehab. Dietary Recommendations: Fruits, vegetables, whole grains, protein foods, and fat-free or low-fat dairy products are healthy choices. Eat different types of protein foods in your diet. This can include seafood, lean meats, poultry, beans, peas, lentils, nuts, seeds, soy products, and eggs. Limit foods and beverages higher in added sugars, saturated fat, and sodium. Exercise Recommendations: At least 150 minutes of moderate-intensity physical activity per week, or an equivalent combination of moderate- and vigorous-intensity activity Obstructive sleep apnea syndrome 03/24/2013 Assessment & Plan (02/19/2025 11:03 AM EST): - city magistrate changed mask for nasal pillow per patient's request in May 2023 - recommended CPAP use Assessment & Plan (10/13/2024 10:51 PM EDT): - city magistrate changed mask for nasal pillow per patient's request in May 2023 - recommended CPAP use Assessment & Plan (06/06/2024 3:27 PM EST): - city magistrate changed mask for nasal pillow per patient's request in May 2023 - recommended CPAP use Assessment & Plan (02/14/2024 5:29 PM EST): - city magistrate changed mask for nasal pillow per patient's request in May 2023 - recommended CPAP use Assessment & Plan (01/28/2023 8:51 PM EDT): - continue CPAP Asthma 12/10/2012 Assessment & Plan (02/19/2025 11:03 AM EST): - Previously followed by Allergy / management development specialist : Dr. Ahn - Currently followed by Dr. Webber, [facility] pulmology, last seen in May 2023 - No history of intubation, Hx pneumonia and influenza in Apr 2018 - Severe exacerbation 1 or 2 times / year - Last exacerbation in Mar 2024, Rx prednisone, doxycycline. - Continue Symbicort and Singulair as maintenance. - Continue albuterol HFA / neb prn as rescue. - Consider SMART Assessment & Plan (10/13/2024 10:50 PM EDT): - Previously followed by Allergy / management development specialist : Dr. Ahn - Seen by new city magistrate at [facility] in May 2023 [...] EST): - Previously followed by Allergy / management development specialist : Dr. Ahn - Seen by new city magistrate at [facility] in May 2023 [...] EST): - Previously followed by Allergy / management development specialist : Dr. Ahn - Seen by new city magistrate at [facility] in May 2023 - No history of intubation, Hx pneumonia and influenza in Apr 2018 - Severe exacerbation 1 or 2 times / year - Continue Symbicort and Singulair as maintenance. - Continue albuterol HFA / neb prn as rescue. Assessment & Plan (01/28/2023 8:51 PM EDT): - Previously followed by Allergy / management development specialist : Dr. Ahn - Seen by new city magistrate at [facility] in August 2022 - No history of intubation, Hx pneumonia and influenza in Apr 2018 - Severe exacerbation 1 or 2 times / year - Continue Symbicort and Singulair as maintenance. - Continue albuterol HFA / neb prn as rescue. Assessment & Plan (10/28/2022 6:57 AM EDT): - Previously followed by Allergy / management development specialist : Dr. Ahn - Seen by new city magistrate at [facility] in August 2022 - No history of intubation, Hx pneumonia and influenza in Apr 2018 - Severe exacerbation 1 or 2 times / year - Continue Symbicort and Singulair as maintenance. - Continue albuterol HFA / neb prn as rescue. Assessment & Plan (08/15/2022 6:29 AM EDT): - Allergy / management development specialist : Dr. Ahn, needs a new allergy security incident response specialist - No history of intubation, Hx [...] she would like me to call her spring internship and try to get a sooner appointment and she said shes fine and can wait. I asked her if she felt safe and she said she did. We discussed her nitroglycerin and when to use it and ED precautions. Differentials: stable vs unstable angina, left sided axillary pain, frequent or high PVC burden. Encounters Date Type Department Care Team Description 02/28/2025 Orders Only GENERIC EXTERNAL DATA DEPARTMENT Provider, Generic External Data 02/22/[address] [facility] [address] [place] [address] Nathanael Crespo DDS 02/20/[address] [facility] [address], [place] [phone] Jenny Vázquez MD Care Coordination; Medication Question 02/15/2025 Travel 02/14/2025 1:15 PM EST Office Visit [facility] [address] [place] [phone] Jenny Vázquez MD Primary hypertension (Primary Dx); Ischemic heart disease; Nonsustained ventricular tachycardia (CMS/HCC) (HCC); Dyslipidemia; Type 2 diabetes mellitus without complication, without long-term current use of insulin (HCC); Fibromyalgia; Encounter for immunization; Frequent PVCs; Class 1 obesity due to excess calories with serious comorbidity and body mass index (BMI) of 32.0 to 32.9 in adult; Ganglion cyst of volar aspect of left wrist; Current mild episode of major depressive disorder, unspecified whether recurrent (CMS/HCC); Moderate persistent asthma without complication; Obstructive sleep apnea syndrome; Allergic rhinitis, unspecified seasonality, unspecified trigger 02/14/2025 Travel 02/13/[address] [facility] [address] [place] [address] Vivi Alvarez MA 02/07/2025 Travel 02/01/[address] [facility] [address] [place] [address] Jenny Vázquez MD Fibromyalgia 2025 12:45 PM EDT Office Visit [facility] [address], [place] [phone] Marialuisa Parsons Open fracture of tooth, initial encounter (Primary Dx); Dental plaque; Retained dental root; Dental calculus 01/18/2025 Travel from Last 3 Months Immunizations Immunization Administration [...] Description 07/24/2025 12:45 PM EDT Office Visit [facility] [address], [place] [phone] Parsons, Marialuisa Health Maintenance Due Date Last Done Comments CT Colonography 1955 FIT DNA/Cologuard 1955 FIT 1955 FOBT 1955 Sigmoidoscopy 1955 Hepatitis C Screening 01/18/1974 RSV Patients and Patients Aged 60 years or older (1 - Risk 50-74 years 1-dose series) 01/18/2006 Zoster Vaccines (2 of 3) 01/13/2017 11/18/2016 [...] Alcohol/Substance Use Screening 02/14/2026 02/14/2025 Tobacco Screening 02/19/2026 02/19/2025 Colonoscopy 12/09/2026 12/09/2016 Colorectal Cancer Screening 12/09/2026 [...] on patient's age to complete this topic Goals Goal Patient Goal Type Associated Problems Recent Progress Patient-Stated? Author Help patients manage their type 2 diabetes Care Plan Help patients manage their type 2 diabetes No Nathanael Crespo DDS Weekly blood pressure task Care Plan Weekly blood pressure task No Nathanael Crespo DDS Help patients manage their type 2 diabetes Care Plan Help patients manage their type 2 diabetes No Nathanael Crespo DDS Patient has chronic kidney disease Care Plan Patient has chronic kidney disease No Nathanael Crespo DDS Weekly blood pressure task Care Plan Weekly blood pressure task No Nathanael Crespo DDS Patient has chronic kidney disease Care Plan Patient has chronic kidney disease No Nathanael Crespo DDS Weekly blood pressure task Care Plan Weekly blood pressure task No Nathanael Crespo DDS Weekly blood pressure task Care Plan Weekly blood pressure task No Nathanael Crespo DDS Patient has chronic kidney disease Care Plan Patient has chronic kidney disease No Nathanael Crespo DDS Patient has chronic kidney disease Care Plan Patient has chronic kidney disease No Nathanael Crespo DDS Weekly blood pressure task Care Plan Weekly blood pressure task No Camille Villatoro Weekly blood pressure task Care Plan Weekly blood pressure task No Camille Villatoro Patient has chronic kidney disease Care Plan Patient has chronic kidney disease No Camille Villatoro Patient has chronic kidney disease Care Plan Patient has chronic kidney disease No Camille Villatoro Weekly blood pressure task Care Plan Weekly blood pressure task No Marianela Langford RN Weekly blood pressure task Care Plan Weekly blood pressure task No Marianela Langford RN Patient has chronic kidney disease Care Plan Patient has chronic kidney disease No Marianela Langford RN Patient has chronic kidney disease Care Plan Patient has chronic kidney disease No Marianela Langford RN Procedures Procedure Name Priority Date/Time Associated Diagnosis Comments GLUCOSE, WHOLE BLOOD Routine 02/28/2025 9:26 AM EST POCT GLYCATED HEMOGLOBIN, TOTAL Routine 02/14/2025 1:30 PM EST Type 2 diabetes mellitus without complication, without long-term current use of insulin ([facility]) POCT GLUCOSE Routine 02/14/2025 1:28 PM EST Type 2 diabetes mellitus without complication, without long-term current use of insulin ([facility]) CASE PRESENTATION, DETAILED AND EXTENSIVE TREATMENT PLANNING [...] complication, without long-term current use of insulin ([facility]) Primary hypertension LIPID PANEL WITH REFLEX TO DIRECT LDL Routine 06/07/2024 10:46 AM EST Dyslipidemia BI MAMMOGRAM SCREENING TOMOSYNTHESIS BILATERAL Routine 02/12/2024 2:03 PM EDT DIABETES EYE EXAM Routine 03/03/2023 COLONOSCOPY Routine 12/09/2016 from Last 3 Months or Most Recently Relevant to Health Maintenance Results * Glucose, Whole Blood (02/28/2025 9:26 AM EST) Glucose, Whole Blood 107 60 - 115 mg/dL [facility] Comment:METER #: [id number] 02/28/2025 9:26 AM EST 02/28/2025 9:29 AM EST Generic External Data Provider LAB BLOOD ORDERAB LES Final Result Performing Organization Address City/State/[facility] Co de Phone Number [facility] [address] [place] [phone] * (ABNORMAL) POCT Hgb A1c (02/14/2025 1:30 PM EST) Hemoglobin A1C 6.0(A) 4.0 - 5.7 % QC Media Lot # [id number] Lot# Expiration Date [id number] Blood 02/14/2025 1:30 PM EST Jenny Vázquez MD POINT OF CARE TEST ENTER/EDIT OR DERABLES Final Result * POCT Glucose (02/14/2025 1:28 PM EST) Glucose Blood, POC 156 60 - 200 mg/dL QC Media Lot # [id number] Lot# Expiration Date [id number] Blood Capillary blood specimen / Unknown 02/14/2025 1:28 PM EST Jenny Vázquez MD POINT OF CARE TEST ENTER/EDIT OR DERABLES Edited Result - Final * Referral to Audiology (12/06/2024) Jenny Vázquez MD OUTPATIENT REFERRAL ORDERABLES F inal Result * Lipid Panel with Reflex to Direct LDL (06/07/2024 10:46 AM EST) Triglycerides 106 <150 mg/dL [facility] Comment:Desirable Triglyceri de: less than 150 mg/dLBorderline High Triglyceride 150-199 mg/dLHigh Triglyceride: 200-499 mg/dLVery High Triglyceride: greater than or equal to 5OO mg/dL Cholesterol 121 <200 mg/dL [facility] Comment:Desirable Cholestero l: less than 200 mg/dLBorderline High Cholesterol: 200-239 mg/dLHigh Cholesterol: greater than 239 mg/dL LDL Cholesterol Calculated 56 <100 mg/dL [facility] Comment:Desirable LDL: less than 100 mg/dLNear Optimal/Above Optimal LDL: 110- 129 mg/dLBorderline High LDL: 130-159 mg/dLHigh LDL: 160-189 mg/dLVery High LDL: greater than or equal to 190 mg/dL HDL Cholesterol 44 >40 mg/dL [facility] Comment:Desirable HDL: great er than 40 mg/dL Note: This HDL assay may give artificially low results in patients with liver disease. Blood 06/07/2024 10:4 6 AM EST 06/07/2024 11:30 AM EST Jenny Vázquez MD LAB BLOOD ORDERABLES Final Resul t [facility] [address] [place] [phone] * Albumin, Random Urine W/Creatinine (06/07/2024 10:46 AM EST) Creatinine, Urine 93.36 mg/dL [facility] Microalbumin Urine <5.0 mg/L [facility] Microalbum Creatinine Ratio Ur TNP <30 ug/mg cr [facility] Comment:Unable to calculate albumin/creatinine ratio due to lowmicroalbumin or creatinine result. Urine 06/07/2024 10:4 6 AM EST 06/07/2024 11:32 AM EST us Jenny Vázquez MD LAB URINE ORDERABLES Final Resul t [facility] [address] [place] [address] [phone] * BI Mammogram Screening Tomosynthesis Bilateral (02/12/2024 2:03 PM EDT) Anatomical Region Laterality Modality Breast Bilateral Mammography 02/12/2024 2:03 PM EDT Narrative 02/22/2024 7:44 PM EST [address] [place] [address] Mammography Report Signed Patient: Araseli Leary MR#: [id number] : 1955 Acct:[id number] Age/Sex: 69 / F ADM Date: 02/12/24 Loc: HO.MAMMO Attending Dr: Jenny Vázquez MD Ordering Physician: Jenny Vázquez MD Results: 1Negative Date of Service: 02/12/24 Follow Up: 1 Year From [facility] Mammogram Procedure(s): MM tomosynthesis screening BI Accession Number(s): [id number] cc: Jenny Vázquez MD EXAMINATION: MM SCREENING [...] Mendez DO Signed By: <Electronically signed by eCline Mendez DO in OV> 02/22/241940 DD/ 02 TD/TT: 02/12/241402 Long Winder Tender: Procedure Note Donotuseinterpreter, Image - [facility] [address] [place] [address] Mammography Report Signed Patient: Jose M Leary#: [id number] : 6Acct:[id number] Age/Sex: 69 / FADM Date: 02/12/24 Loc: [facility] Attending Dr: Jenny Vázquez MD Ordering Physician: Jenny Vázquez MDResults: 1Negative Date of Service: 02/12/24Follow Up: 1 Year From Orig inal Mammogram Procedure(s): MM tomosynthesis screening BI Accession Number(s): [id number] cc: Jenny Vázquez MD EXAMINATION: MM SCREENING [...] Celine Mendez DO 02/22/2024 07:41 PM EST RP Dictated By: Celine Mendez DO Signed By: <Electronically signed by Celine Mendez DO in OV> 02/22/241940 DD/ 02 TD/TT: 02/12/241402 Long Winder Tender: Jenny Vázquez MD IMG BI PROCEDURES Edited Result - Final * Diabetes Eye Exam (03/03/2023) Eye Exam Normal Normal Historical Provider HEALTH MAINTENANCE Final Result * Colonoscopy (12/09/2016) Colonoscopy Normal Normal 12/09/2016 Kerri Alejo HEALTH MAINTENANCE Final Result from Last 3 Months or Most Recently Relevant to Health Maintenance Additional Health Concerns Active Problems Noted Date Diagnosed Date Help patients manage their type 2 diabetes 02/22 Weekly blood pressure task 02/22/2025 Help patients manage their type 2 diabetes 02/22 Patient has chronic kidney disease 02/22/2025 Weekly blood pressure task 02/22/2025 Patient has chronic kidney disease 02/22/2025 Weekly blood pressure task 02/22/2025 Weekly blood pressure task 02/22/2025 Patient has chronic kidney disease 02/22/2025 Patient has chronic kidney disease 02/22/2025 Weekly blood pressure task 02/22/2025 Weekly blood pressure task 02/22/2025 Patient has chronic kidney disease 02/22/2025 Patient has chronic kidney disease 02/22/2025 Weekly blood pressure task 02/23/2025 Weekly blood pressure task 02/23/2025 Patient has chronic kidney disease 02/23/2025 Patient has chronic kidney disease 02/23/2025 Insurance 1 ANGE [place] [employer] MEDICARE REPLACEMENT 1 [employer]GE [place] DENTAL - [employer] DENTAL PPO 1 [place]GE [place] [id number] 1 ANGE [place] [id number] 1 [place]GE [place] [id number] Care Teams Front Line Leader Relationship Specialty Start Date End Date Jenny Vázquez MD [address] [place] [phone] [place], [place] PCP - General Family Medicine 04/13/18
--- OUTSIDE RECORDS SUMMARY | 2025-03-07 18:01 | XMS_ITS | Encounter Summary ---
Author Organization [email or web address] Address [address] [facility] [address] [place] [address] Care Team Providers Care Furniture Rental Consultant Name Role Phone Jenny Vázquez MD Primary Care Provider [phone] Encounter Details Date Type Department Care Team (Late st Contact Info) Description 12/30/2023 Orders Only [facility] [address] [place] [address] Jenny Vázquez MD [address] [place] [address] Primary hypertension (Primary Dx); Dyslipidemia; Fibromyalgia Social [...] Description 07/24/2025 12:45 PM EDT Office Visit [facility] ADULT DENTAL [address] [place] [address] Marialuisa Parsons documented as of this encounter Visit Diagnoses Diagnosis Primary hypertension- Primary Unspecified essential hypertension Dyslipidemia Other and unspecified hyperlipidemia Fibromyalgia Unspecified myalgia and myositis documented in this encounter Additional Health Concerns Assessment Noted Time PHQ-9 Depression Total Score: 0 10/22/19 23 1:17 PM EDT documented as of this encounter Care Teams Furniture Rental Consultant Relationship Specialty Start Date End Date Jenny Vázquez MD [address] [place] [address] PCP - General Family Medicine 04/13/18 documented as of this encounter
== END 2025-03-07 14:07 | disposition home or self-care (01) ==
LOC: HO.MAMMO 14:06
PROVIDERS: PCP Family Medicine; Visit Provider Family Medicine
DX: Z12.31 Encounter for screening mammogram for malignant neoplasm of breast (principal)
CPT/HCPCS: 77063; 77067

== ENCOUNTER → 2025-03-07 14:45 | Outpatient (BNV) | payer MEDICARE, SELFPAY | PROVIDERS: PCP Family Medicine; Visit Provider Radiology Body Imaging | DX: Z12.31 Encounter for screening mammogram for malignant neoplasm of breast (principal) | CPT/HCPCS: 77063; 77067 ==

== ENCOUNTER 2025-03-15 12:08 | Outpatient (AMB) | payer MEDICARE, SELFPAY ==
--- NOTE | 2025-03-15 12:14 | A.OFFVIS_ITS ---
Vital Signs 03/15/25 12:20 Height 5 ft 3 in Weight 185 lb BMI 32.8 BP 112/76 Blood Pressure Location Rt brachial Position Sitting Pulse 68 Pulse Source Pulse Oximeter Pulse Oximetry (%) 96 Oxygen Delivery Method Room Air Intake Visit Reasons: s/p colo Flakito Intake Note: Est pt for mgmt of GERD. S/P [place] [facility]; Pt denies any GI sx or concerns at this time. Confirms her current rx are working as intended. Process Analyst Required: No Accompanied by: Self / Same As Patient Allergies peanut Allergy (Severe, Verified 03/15/25 12:15) angioedema lisinopril (LISINOPRIL) Allergy (Intermediate, Verified 03/15/25 12:15) RASH, cough zoster vaccine live (SHINGLES VACCINE) Allergy (Intermediate, Verified 03/15/25 12:15) LOCALIZED REDNESS, SWELLING, FEVER,COUGH latex (LATEX) Allergy (Unknown, Verified 03/15/25 12:15) RASH pineapple (PINEAPPLE) Allergy (Unknown, Verified 03/15/25 12:15) RASH strawberry (STRAWBERRY) Allergy (Unknown, Verified 03/15/25 12:15) RASH adhesive Allergy (Verified 03/15/25 12:15) Blister HPI HPI s/p colo Flakito: Details: Assessment & Plan (1) GERD (gastroesophageal reflux disease): Code(s): K21.9 - Gastro-esophageal reflux disease without esophagitis Category: Medical (2) Chronic idiopathic constipation: Code(s): K59.04 - Chronic idiopathic constipation Category: Medical (3) GUADALUPE (obstructive sleep apnea): Comment: CONFIRMED CASE OF OBSTRUCTIVE SLEEP APNEA, DIAGNOSED IN 2022. INITIALLY SHE USED CPAP REGULARLY BUT THEN, , STAY USED ONLY ONCE IN A WHILE BLAMES IT ON THE MASK SHE DOES NOT LIKE THE FULLFACE MASK, AND WANTS TO TRY A NASAL PILLOWS. Code(s): G47.33 - Obstructive sleep apnea (adult) (pediatric) Category: Medical (4) Tubular adenoma of colon: Comment: 2016 scope= TA repeat in 5 years Code(s): D12.6 - Benign neoplasm of colon, unspecified Category: Medical (5) COPD (chronic obstructive pulmonary disease): Comment: THIS PATIENT IS ALSO A CASE OF CHRONIC OBSTRUCTIVE PULMONARY DISEASE, I CHECKED. AND IT WAS ACTUALLY RELATIVELY NORMAL SHE CONTINUES TO USE HER REGULAR REGIMEN. Code(s): J44.9 - Chronic obstructive pulmonary disease, unspecified Category: Medical (6) Hemorrhoids with complication: Code(s): K64.8 - Other hemorrhoids Category: Medical (7) Pre-op examination: Code(s): Z01.818 - Encounter for other preprocedural examination Category: Medical Plan She has been lost to follow-up since 11/2023 She is now taking the omeprazole and reglan 5mg qid and no a/e and it is controlling her GERD she is not using the simethicone as frequently only as needed and she asked me to hold this medication for now and we will. She is agreeable not having a colonoscopy since she has about 2 or 3 months out from her cardiac catheterization and is doing well. Her cardiac condition has completely stabilized and she is not on any anticoagulation. We will get this scheduled. Her GUADALUPE and her asthma is well controlled. There are no prior problems with anesthesia or sedation. There are no infectious disease problems. Return office visit in 6 months or after the colonoscopy whichever comes 1st. She is having more trouble with roids, wants cream and a re referral to surgery. Orders: Orders Colonoscopy - GI Use Only Today D12.6 - Benign neoplasm of colon, unspecified, G47.33 - Obstructive sleep apnea (adult) (pediatric), J44.9 - Chronic obstructive pulmonary disease, unspecified Referrals General Surgery Referral K64.9 - Unspecified hemorrhoids Medications: New sodium,potassium,mag sulfates 17.5-3.13-1.6 gram (Suprep Bowel Prep Kit) 480 mL orally; FOR COLONOSCOPY PREP 354 mL 0RF Changed From hydrocortisone 1% OK K64.8 - Other hemorrhoids To hydrocortisone 1% 1 appl OK TID 28.4 grams 6RF K64.8 - Other hemorrhoids Refilled metoclopramide HCl (Reglan) 5 mg PO QIDACHS 120 tabs 6RF K30 - Functional dyspepsia pantoprazole 40 mg PO QAM 90 tabs 2RF On Hold simethicone Hold Comment: pt has too much 180 mg PO QID 30 days 120 caps 6RF R14.0 - Abdominal distension (gaseous) COLONOSCOPY 02/28/25 Findings: Mucosa: Copious liquid opaque stool in the colon letiita in cecal pouch and left colon. Protruding lesions: * 1 sessile polyp of size 2 mm in descending colon. Cold snare polypectomy was performed. The polyp was completely removed but not retrieved. * Medium internal hemorrhoids without stigmata of recent bleeding. Excavated lesions: * Few diverticulosis of left sided colon. Impression: 1. Poor prep 2. Total of 1 polyp removed but not retrieved. 3. Diverticulosis 4. External and internal hemorrhoids Recommendations: - Repeat colonoscopy in 1-2 years due to poor prep. BIOPSY POLYP WAS NOT RETRIEVED SO NO BIOPSY AVAILABLE TODAY'S VISIT FORMERLY [facility] Medical History Stable angina COVID-19 Palpitation Precordial chest pain Hemorrhoids Abdominal bloating Abdominal cramping Back pain Encounter for monitoring anti-arrhythmic therapy Fracture of proximal phalanx of right ring finger Syncope and collapse Acute non-ST elevation myocardial infarction (NSTEMI) Fracture of lesser tuberosity of right humerus Fracture of proximal end of right humerus Family history of ovarian cancer Early satiety COPD (chronic obstructive pulmonary disease) Cataract GUADALUPE (obstructive sleep apnea) Obesity (BMI 30-39.9) Hemorrhoids with complication NSVT (nonsustained ventricular tachycardia) PVC (premature ventricular contraction) Surgical History History of cardiac cath S/P ablation of ventricular arrhythmia S/P cardiac cath S/P cardiac catheterization History of coronary artery stent placement History of esophagogastroduodenoscopy (EGD) Hx of colonoscopy History of shoulder surgery (~04/29/18) History of lumbar laminectomy Family History Father Cardiovascular disease Mother Osteoarthritis Family/Other Ovarian cancer, Onset Age: 30 Social History Household Members: Spouse Alcohol intake: never Patient Tobacco Use Status: Never used Tobacco service: No Current occupational status: unemployed Current occupation: rt handed Physical Exam Vital Signs: Last Vital Signs Pulse 68 03/15/25 12:20 BP 112/76 03/15/25 12:20 Pulse Ox 96 03/15/25 12:20 Oxygen Delivery Method Room Air 03/15/25 12:20 BMI result Body Mass Index 32.8 Assessment & Plan Assessment & Plan (1) Sessile colonic polyp: Comment: 02/2025 scope 2mm but no retrieved, repeat 1 year Code(s): K63.5 - Polyp of colon Category: Medical Plan Bulgarian #dtr translates per pt request Gi regimen, reglan, protonix, simethicone and proctosol cream Subjective Follow-up after recent colonoscopy to review results and discuss bowel preparation. Patient reports the prep effect was delayed, with prolonged time to begin cleansing and continued bathroom use; she had diarrhea for two days after the procedure and then bowel movements returned to baseline. She sought reassurance about nocturnal abdominal ?rumbling,? which she feels more at night. She requests a refill of hemorrhoid cream. She is taking pantoprazole. Simethicone was previously stopped due to bothersome body odor, and she prefers not to restart it. Objective - Colonoscopy: One large polyp was removed; specimen was not retrieved for pathology. Visualization limited by inadequate bowel preparation with opaque brown liquid stool throughout the colon. Internal hemorrhoids noted. Assessment & Plan Post-colonoscopy with unretrieved polyp and inadequate bowel preparation: One large polyp removed but not retrieved; inadequate visualization due to suboptimal prep. Repeat colonoscopy recommended to ensure complete evaluation. - Repeat colonoscopy in one year from 02/2025 (order placed and annotated for timing). - Bowel prep optimization for next procedure: - Begin split-dose liquid prep 48 hours before the procedure rather than 24 hours. - Add bisacodyl (Dulcolax) 1 dose nightly for 3?4 nights prior to prep start. - Provide prescription instructions requesting the longest expiration date available and store in a cool, dry place. Hemorrhoids: Noted on colonoscopy; symptomatic management as needed. - Refill hemorrhoid cream; use as needed for discomfort. - Sterile Supervisor to avoid constipation and straining to minimize symptom flares. GERD/acid suppression therapy - Continue pantoprazole; refills sent. Gas/bloating; nocturnal GI activity - Reassurance provided that increased nocturnal GI motility and rumbling can be normal. - Continue to hold simethicone given prior intolerance; no refill sent. - Follow-up in 6 months or sooner as needed. Orders: Referrals GI Procedure Notification K63.5 - Polyp of colon Medications: New sodium,potassium,mag sulfates 17.5-3.13-1.6 gram (Suprep Bowel Prep Kit) 480 mL orally; FOR COLONOSCOPY PREP 354 mL 0RF bisacodyl (Dulcolax (bisacodyl)) Please give longest expiration date available 10 mg (2 x 5 mg) PO BEDTIME 8 tabs 0RF 4 days Refilled metoclopramide HCl (Reglan) 5 mg PO QIDACHS 120 tabs 6RF K30 - Functional dyspepsia hydrocortisone 1% 1 appl OK TID 28.4 grams 6RF K64.8 - Other hemorrhoids pantoprazole 40 mg PO QAM 90 tabs 2RF Discontinued simethicone after meals Discontinued Reason: Doctor's Order 180 mg PO QID 30 days 120 caps 6RF R14.0 - Abdominal distension (gaseous) Coding Level of Care Code Est Pt Level 3 (73140) Diagnoses Sessile colonic polyp K63.5
[2025-03-15 12:20] VITALS: BP 112/76; PULSE 68; O2SAT 96; BMI 32.8
== END 2025-03-15 13:12 | disposition home or self-care (01) ==
LOC: HO.HGI 12:09
PROVIDERS: PCP Family Medicine; Visit Provider Nurse Practitioner
DX: K63.5 Polyp of colon (principal)
CPT/HCPCS: 99213

== ENCOUNTER → 2025-03-15 12:08 | Outpatient (BNVA) | payer MEDICARE, SELFPAY | PROVIDERS: PCP Family Medicine; Visit Provider Nurse Practitioner | DX: K63.5 Polyp of colon (principal); K64.8 Other hemorrhoids; K30 Functional dyspepsia; Z79.899 Other long term (current) drug therapy | CPT/HCPCS: 99212 ==

== ENCOUNTER 2025-03-27 13:44 | Outpatient (AMB) | payer MEDICARE, SELFPAY ==
[2025-03-27 13:53] VITALS: BP 108/56; PULSE 71; BMI 32.5
--- NOTE | 2025-03-27 13:53 | MHC.OFFVIS ---
Vital Signs 03/27/25 13:53 Height 5 ft 3 in Weight 183 lb 6.793 oz BMI 32.5 BP 108/56 L Blood Pressure Location Lt brachial Position Sitting Pulse 71 Pulse Source Pulse Oximeter Intake Visit Reasons: 1mnth fu Jacker Required: No Accompanied by: Spouse Allergies peanut Allergy (Severe, Verified 03/27/25 13:57) angioedema lisinopril (LISINOPRIL) Allergy (Intermediate, Verified 03/27/25 13:57) RASH, cough zoster vaccine live (SHINGLES VACCINE) Allergy (Intermediate, Verified 03/27/25 13:57) LOCALIZED REDNESS, SWELLING, FEVER,COUGH latex (LATEX) Allergy (Unknown, Verified 03/27/25 13:57) RASH pineapple (PINEAPPLE) Allergy (Unknown, Verified 03/27/25 13:57) RASH strawberry (STRAWBERRY) Allergy (Unknown, Verified 03/27/25 13:57) RASH adhesive Allergy (Verified 03/27/25 13:57) Blister Medication List - Last Reconciled 03/27/25 by Koko Parikh NP albuterol sulfate 90 mcg/actuation (ProAir HFA) 2 puffs PO Q4H aspirin 81 mg PO DAILY atorvastatin 80 mg PO BEDTIME bisacodyl (Dulcolax (bisacodyl)) 10 mg (2 x 5 mg) PO BEDTIME 4 days epinephrine mL IM fluticasone propionate 50 mcg/actuation 2 sprays intranasal DAILY hydrocortisone 1% 1 appl NJ TID isosorbide mononitrate ER 120 mg PO DAILY lidocaine 5% 1 appl topical DAILY PRN loratadine 10 mg PO BEDTIME metoclopramide HCl (Reglan) 5 mg PO QIDACHS metoprolol succinate ER 75 mg (1.5 x 50 mg) PO QAM nitroglycerin 0.4 mg sublingual Q5M PRN pantoprazole 40 mg PO QAM pregabalin (Lyrica) 50 mg PO BID semaglutide (Ozempic) mg subcut sertraline (Zoloft) 50 mg PO DAILY sodium,potassium,mag sulfates 17.5-3.13-1.6 gram (Suprep Bowel Prep Kit) 480 mL orally; FOR COLONOSCOPY PREP tiotropium bromide 1.25 mcg/actuation (Spiriva Respimat) 2 puffs inhalation DAILY HPI Comments Details: This is a 70-year-old female patient coming in for a follow-up visit, accompanied by her . Patient with a history of coronary artery disease status post prior PCI to LAD RCA and OM1 in 2022, PVCs status post ablation, left bundle branch block, and sleep apnea. Patient had undergone a cardiac catheterization with Dr. Fuentes on 11/08/2024 that revealed patent stents with unchanged ostial circumflex disease from her previous cardiac catheterization. Following this, patient was noted to have exertional chest discomfort at the cardiac rehab for which we increase her isosorbide to 120 mg daily. Today, patient states that on this dose, she is feeling good overall without any symptoms of exertional chest pain, shortness of breath, palpitations, dizziness, orthopnea, PND, leg edema, presyncope or syncope. Patient is reporting a blood pressures at home has been stable and that she is compliant with all her medications. Patient states that she is no longer going to cardiac rehab and is exercising at home. [facility]LY [facility] Medical History Stable angina COVID-19 Palpitation Precordial chest pain Hemorrhoids Abdominal bloating Abdominal cramping Back pain Encounter for monitoring anti-arrhythmic therapy Fracture of proximal phalanx of right ring finger Syncope and collapse Acute non-ST elevation myocardial infarction (NSTEMI) Fracture of lesser tuberosity of right humerus Fracture of proximal end of right humerus Family history of ovarian cancer Early satiety COPD (chronic obstructive pulmonary disease) Cataract GUADALUPE (obstructive sleep apnea) Obesity (BMI 30-39.9) Hemorrhoids with complication NSVT (nonsustained ventricular tachycardia) PVC (premature ventricular contraction) Surgical History History of cardiac cath S/P ablation of ventricular arrhythmia S/P cardiac cath S/P cardiac catheterization History of coronary artery stent placement History of esophagogastroduodenoscopy (EGD) Hx of colonoscopy History of shoulder surgery (~04/29/18) History of lumbar laminectomy Family History Father Cardiovascular disease Mother Osteoarthritis Family/Other Ovarian cancer, Onset Age: 30 Social History Household Members: Spouse Alcohol intake: never Patient Tobacco Use Status: Never used Tobacco service: No Current occupational status: unemployed Current occupation: rt handed Review of Systems Const Denies daytime sleepiness, Denies difficulty sleeping, Denies snoring, Denies stops breathing during sleep and Denies weakness Card Denies chest pain, Denies rapid heart rate, Denies irregular heart rhythm, Denies claudication, Denies leg edema, Denies lightheadedness, Denies dyspnea on exertion, Denies orthopnea and Denies slow heart rate Resp Denies cough, Denies dyspnea on exertion and Denies snoring GI Reports no additional complaints, Denies hematochezia, Denies change in stool character and Denies dyspepsia Musc Denies abnormal gait, Denies muscle weakness and Denies numbness Neuro Denies abnormal gait, Denies numbness and Denies weakness Physical Exam Vital Signs: Last Vital Signs Pulse 71 03/27/25 13:53 BP 108/56 L 03/27/25 13:53 BMI result Body Mass Index 32.5 Const General: cooperative, healthy appearing, comfortable and no acute distress Orientation/consciousness: patient oriented x3 HEENT Head: Yes normal to inspection Neck Neck: Yes normal visual inspection, Yes trachea midline and Yes supple Chest Chest palpation & inspection: normal inspection of the chest Resp Effort & Inspection: normal respiratory effort Auscultation: clear to auscultation bilaterally, no crackles, no rales, no rhonchi and no wheezes Cardio Jugular venous distension: no JVD Palpation: normal PMI Rate: regular rate Rhythm: regular rhythm Heart sounds: S1 normal heart sound present, S2 normal heart sound present, no click, no gallops, no murmurs and no rubs Peripheral pulses: Peripheral pulses 2+ throughout GI Inspection: Yes normal to inspection Palpation (GI): Soft to palpation Auscultation: normal bowel sounds Skin General skin exam: no rashes or lesions noted Neuro General: patient oriented x3 Extrem General: Yes normal to inspection, No no pedal edema and No calf tenderness Psych Appearance: grossly normal Mental Status: mental status grossly normal Speech and movement: Normal speech and movement present Assessment & Plan Assessment & Plan (1) Atherosclerotic cardiovascular disease: Code(s): I25.10 - Atherosclerotic heart disease of [place] coronary artery without angina pectoris Category: Medical Plan: History of PCI in the LAD, RCA, and OM1 in 2022. Due to reports of exertional chest pain, patient underwent a cardiac catheterization with Dr. Fuentes on 11/08/2024 that showed patent stents in the proximal to distal RCA, lad, LCX. Also showed 40-50% stenosis in the ostial circumflex unchanged from her previous cardiac catheterization. At her last visit, patient was seen because she was having exertional chest discomfort at cardiac rehab. Given her patent stents and unchanged circumflex disease, we decided to medically manage her and therefore increased her isosorbide. Today, patient is reporting feeling well overall without any exertional symptoms. Continue lifelong aspirin therapy. Continue isosorbide and metoprolol. Continue statin therapy with an LDL goal less than 60. Today blood pressure is stable and patient states her blood pressures has been stable at home as well. Advised to continue monitoring blood pressures at home. (2) Stented coronary artery: Code(s): Z95.5 - Presence of coronary angioplasty implant and graft Category: Surgical Plan: As above. (3) LBBB (left bundle branch block): Code(s): I44.7 - Left bundle-branch block, unspecified Category: Medical Plan: Chronic left bundle branch block. Clinically stable. Continue to monitor. (4) PVC (premature ventricular contraction): Code(s): I49.3 - Ventricular premature depolarization Category: Medical Plan: History of symptomatic PVCs status post ablation in 2023. Continue metoprolol therapy. (5) GUADALUPE (obstructive sleep apnea): Code(s): G47.33 - Obstructive sleep apnea (adult) (pediatric) Category: Medical Plan: Continue CPAP therapy. Advised on heart healthy diet, regular exercise, med compliance, and aggressive management of vascular risk factors. Follow up in 4 months. In the interim, patient will call the office with any concerns or change in symptoms. Advised to seek ER care in case of exertional chest pain not resolved with rest. This note was generated using voice recognition software. While every effort has been made to ensure accuracy and proper spooler operator automatic, there may be occasional errors that could affect the content or meaning of the described symptoms. Coding Level of Care Code Est Pt Level 4 (90634) Add On Problem Visit Only Diagnoses Atherosclerotic cardiovascular disease I25.10 Stented coronary artery Z95.5 LBBB (left bundle branch block) I44.7 PVC (premature ventricular contraction) I49.3 GUADALUPE (obstructive sleep apnea) G47.33 Time Spent (min) 32 Comment Time spent in reviewing the chart, test results, assessment, counseling and documentation.
--- OUTSIDE RECORDS SUMMARY | 2025-03-27 19:59 | XMS_ITS | Encounter Summary ---
Author Organization [employer] Address [address] [facility] [address] [place] [address] Care Team Providers Care Boxing Instructor Name Role Phone Jenny Vázquez MD Primary Care Provider [phone] Encounter Details Date Type Department Care Team (Late st Contact Info) Description 03/09/2023 Abstract [facility] [address] [place] [address] Nathanael Crespo DDS [address] [place] [address] Social History Tobacco Use Types Packs/Day Years [...] Description 07/24/2025 12:45 PM EDT Office Visit [facility] [address] [place] [address] Marialuisa Parsons documented as of this encounter Visit Diagnoses Not on filedocumented in this encounter Additional Health Concerns Assessment Noted Time PHQ-9 Depression Total Score: 0 10/22/19 23 1:17 PM EDT documented as of this encounter Care Teams Boxing Instructor Relationship Specialty Start Date End Date Jenny Vázquez MD [address] [place] [address] PCP - General Family Medicine 04/13/18 documented as of this encounter
--- OUTSIDE RECORDS SUMMARY | 2025-03-27 19:59 | XMS_ITS | Encounter Summary ---
Author Organization [employer] Address [address] [facility] [address] [place] [address] Care Team Providers Care Hoop Maker Name Role Phone Jenny Vázquez MD Primary Care Provider [phone] Reason for Visit * Reason Onset Date Comments Med Refill 06/08/2023 Encounter Details Date Type Department Care Team (Late st Contact Info) Description 06/08/2023 Refill [facility] [address] [place] [address] Loyda Clark MD [address] [place] [address] Fibromyalgia Social History Tobacco Use Types Packs/Day [...] Description 07/24/2025 12:45 PM EDT Office Visit [facility] [address] [place] [address] Marialuisa Parsons documented as of this encounter Visit Diagnoses Diagnosis Fibromyalgia Unspecified myalgia and myositis documented in this encounter Additional Health Concerns Assessment Noted Time PHQ-9 Depression Total Score: 0 10/22/19 23 1:17 PM EDT documented as of this encounter Care Teams Hoop Maker Relationship Specialty Start Date End Date Jenny Váqzuez MD [address] [place] [address] PCP - General Family Medicine 04/13/18 documented as of this encounter
--- OUTSIDE RECORDS SUMMARY | 2025-03-27 19:59 | XMS_ITS | Encounter Summary ---
Author Organization [employer] Address [address] [facility] 7t [place] [address] Care Team Providers Care Manufacturing Accountant Name Role Phone Jenny Vázquez MD Primary Care Provider [phone] Reason for Visit * Reason Comments Med Refill Encounter Details Date Type Department Care Team (Late st Contact Info) Description 04/17/2023 Refill [facility] [address] [place] [address] Jenny Vázquez MD [address] [place] [address] Fibromyalgia Social History Tobacco Use Types Packs/Day [...] Description 07/24/2025 12:45 PM EDT Office Visit [facility]ULT [facility] [address] [place] [address] Marialuisa Parsons documented as of this encounter Visit Diagnoses Diagnosis Fibromyalgia Unspecified myalgia and myositis documented in this encounter Additional Health Concerns Assessment Noted Time PHQ-9 Depression Total Score: 0 10/22/19 23 1:17 PM EDT documented as of this encounter Care Teams Manufacturing Accountant Relationship Specialty Start Date End Date Jenny Vázquez MD [address] [place] [address] PCP - General Family Medicine 04/13/18 documented as of this encounter
--- OUTSIDE RECORDS SUMMARY | 2025-03-27 19:59 | XMS_ITS | Encounter Summary ---
Author Organization [employer] Address [address] [facility] 7t [place] [address] Care Team Providers Care Director Of Web Marketing Name Role Phone Jenny Vázquez MD Primary Care Provider [phone] Encounter Details Date Type Department Care Team (Late st Contact Info) Description 03/10/2023 Abstract [facility]ULT [facility] [address] [place] [address] Nathanael Crespo DDS [address] [place] [address] Social History Tobacco Use Types Packs/Day Years [...] 12:45 PM EDT Office Visit [facility] [address] [place] [address] Marialuisa Parsons documented as of this encounter Visit Diagnoses Not on filedocumented in this encounter Additional Health Concerns Assessment Noted Time PHQ-9 Depression Total Score: 0 10/22/19 23 1:17 PM EDT documented as of this encounter Care Teams Director Of Web Marketing Relationship Specialty Start Date End Date Jenny Vázquez MD [address] [place] [address] PCP - General Family Medicine 04/13/18 documented as of this encounter
--- OUTSIDE RECORDS SUMMARY | 2025-03-27 19:59 | XMS_ITS | Encounter Summary ---
Author Organization [employer] Address [address] [facility] 7t [place] [address] Care Team Providers Care De Icer Element Winder Name Role Phone Jenny Vázquez MD Primary Care Provider [phone] Encounter Details Date Type Department Care Team (Late st Contact Info) Description 03/15/2025 Orders Only [facility] [address] [place] [address] Jenny Vázquez MD [address] [place] [address] Social History Tobacco Use Types Packs/Day Years [...] Description 07/24/2025 12:45 PM EDT Office Visit [facility] ADULT DENT[facility] [address] [place] [address] Marialuisa Parsons documented as of this encounter Goals Goal Patient Goal Type Associated Problems [...] chronic kidney disease No Marianela Langford RN Weekly blood pressure task Care Plan Weekly blood pressure task No Jenny Vázquez MD Weekly blood pressure task Care Plan Weekly blood pressure task No Jenny Vázquez MD Patient has chronic kidney disease Care Plan Patient has chronic kidney disease No Jenny Vázquez MD Patient has chronic kidney disease Care Plan Patient has chronic kidney disease No Jenny Vázquez MD documented as of this encounter Visit Diagnoses Not on filedocumented in this encounter Additional Health Concerns Active Problems Noted Date [...] 02/23/2025 Patient has chronic kidney disease 02/23/2025 Weekly blood pressure task 03/15/2025 Weekly blood pressure task 03/15/2025 Patient has chronic kidney disease 03/15/2025 Patient has chronic kidney disease 03/15/2025 Assessment Noted Time PHQ-9 Depression Total Score: 16 025 2:05 PM EST documented as of this encounter Care Teams De Icer Element Winder Relationship Specialty Start Date End Date Jenny Vázquez MD [address] [place] [address] PCP - General Family Medicine 04/13/18 documented as of this encounter
--- OUTSIDE RECORDS SUMMARY | 2025-03-27 19:59 | XMS_ITS | Encounter Summary ---
Author Organization [employer] Address [address] [facility] 7t [place] [address] Care Team Providers Care Information Technology Associate Name Role Phone Jenny Vázquez MD Primary Care Provider [phone] Encounter Details Date Type Department Care Team (Late st Contact Info) Description 12/30/2023 Orders Only [facility] [address] [place] [address] Jenny Vázquez MD [address] [place] [address] Primary hypertension (Primary Dx); Dyslipidemia; Fibromyalgia Social [...] 12:45 PM EDT Office Visit [facility] ADULT DENTAL [address] [place] [address] Marialuisa Parsons documented as of this encounter Visit Diagnoses Diagnosis Primary hypertension- Primary Unspecified essential hypertension Dyslipidemia Other and unspecified hyperlipidemia Fibromyalgia Unspecified myalgia and myositis documented in this encounter Additional Health Concerns Assessment Noted Time PHQ-9 Depression Total Score: 0 10/22/19 23 1:17 PM EDT documented as of this encounter Care Teams Information Technology Associate Relationship Specialty Start Date End Date Jenny Vázquez MD [address] [place] [address] PCP - General Family Medicine 04/13/18 documented as of this encounter
--- OUTSIDE RECORDS SUMMARY | 2025-03-27 19:59 | XMS_ITS | Encounter Summary ---
Author Organization [email or web address] Address [address] [facility] 7t [place] [address] Care Team Providers Care Senior Datastage Developer Name Role Phone Jenny Vázquez MD Primary Care Provider [phone] Encounter Details Date Type Department Care Team ([facility] st Contact Info) Description 03/22/2025 Orders Only [facility] [address] [place] [address] Provider, MD Man Social History Tobacco Use Types Packs/Day Years [...] Description 07/24/2025 12:45 PM EDT Office Visit [facility] ADULT DENT[facility] [address] [place] [address] Marialuisa Parsons documented as of this encounter [...] Vázquez MD documented as of this encounter Procedures Procedure Name Priority Date/Time Associated Diagnosis Comments DIABETES EYE EXAM Routine 02/27/2025 documented in this encounter Results * Diabetes Eye Exam (02/27/2025) us Historical Provider HEALTH MAINTENANCE Final Result documented in this [...] as of this encounter Care Teams Senior Datastage Developer Relationship Specialty Start Date End Date Jenny Vázquez MD [address] [place] [address] PCP - General Family Medicine 04/13/18 documented as of this encounter
--- OUTSIDE RECORDS SUMMARY | 2025-03-27 19:59 | XMS_ITS | Encounter Summary ---
Author Organization [employer] Address [address] [facility] 7t [place] [address] Care Team Providers Care Gas Compressor Turbine Operator Name Role Phone Jenny Vázquez MD Primary Care Provider [phone] Encounter Details Date Type Department Care Team (Late st Contact Info) Description 04/29/[address] [facility] [address] [place] [address] Lorraine Arroyo LPN Social History Tobacco Use [...] 07/24/2025 12:45 PM EDT Office Visit [facility] AD[facility] D[facility] [address] [place] [address] Marialuisa Parsons documented as of this encounter Procedures Procedure Name Priority Date/Time Associated Diagnosis Comments LIPID PANEL, STANDARD Routine 11/05/2022 8:43 AM EDT PAP SMEAR Routine 10/02/2022 3:36 PM EDT documented in this encounter Results * Lipid Panel, Standard (11/05/2022 8:43 AM EDT) Triglycerides 76 mg/dL [facility] Comment:Desirable Triglyceri de: less than 150 mg/dLBorderline High Triglyceride 150-199 mg/dLHigh Triglyceride: 200-499 mg/dLVery High Triglyceride: greater than or equal to 5OO mg/dL Cholesterol 118 mg/dL [facility] Comment:Desirable Cholestero l: less than 200 mg/dLBorderline High Cholesterol: 200-239 mg/dLHigh Cholesterol: greater than 239 mg/dL LDL Cholesterol Calculated 56 mg/dl [facility] Comment:Desirable LDL: less than 100 mg/dLNear Optimal/Above Optimal LDL: 110- 129 mg/dLBorderline High LDL: 130-159 mg/dLHigh LDL: 160-189 mg/dLVery High LDL: greater than or equal to 190 mg/dL HDL Cholesterol 47 mg/dL [facility] Comment:Desirable HDL: great er than 40 mg/dL Note: This HDL assay may give artificially low results in patients with liver disease. 11/05/2022 8:43 AM EDT 11/05/2022 11:40 AM EDT us Jenny Vázquez MD LAB BLOOD ORDERABLES Final Resul t [facility] [address] [place] [phone] * Pap Smear (10/02/2022 3:36 PM EDT) 10/02/2022 3:36 PM EDT 10/06/2022 12:00 PM EDT Narrative [facility] - 10/27/2022 10:49 AM EDT ----- ------- Name: Araseli Leary Age/Sex: 67/F : 1955 Unit#: [id number] Attend Dr: Argentina Mak CNM Re10/02/22 Status: DEP REF Location: [facility] Disch: ----- ------- SPEC : [id number] RECD: 10/06/22-1200 STATUS: GABRIELA JAVIER NUM: [id number] TODD: 10/02/22-[address] [facility] [address]: Argentina Mak CNM ENTERED: 10/06/22-1318 [...] 60, 67, 69) HPV testing performed by [employer], Stacy, MD. See reference laboratory portion of the EMR for entire report. Clinical Information LMP: Menopausal Previous PAP test: 2018, ASCUS Material Received ThinPrep-Cervical Copies To: Argentina Mak CNM [address] [place] [address] Dr. Lamb [address] [place] [address] [id number] Jenny Vázquez MD [address] [place] [phone] ----- ------- Signed (signature on file) Berlin Rodriguez MD 10/27/22 1049 ----- ------- END OF REPORT [facility] External Provider LAB [facility] ORDERABLES Final Result [facility] [address] [place] [address] [phone] documented in this encounter Visit Diagnoses Not on filedocumented in this encounter Care Teams Gas Compressor Turbine Operator Relationship Specialty Start Date End Date Jenny Vázquez MD [address] [place] [address] PCP - General Family Medicine 04/13/18 documented as of this encounter
--- OUTSIDE RECORDS SUMMARY | 2025-03-27 19:59 | XMS_ITS | Encounter Summary ---
Author Organization [employer] Address [address] [place] [address] 7t [place] [address] Care Team Providers Care Labeling Associate Name Role Phone Jenny Vázquez MD Primary Care Provider [phone] Encounter Details Date Type Department Care Team (Late st Contact Info) Description 10/31/[address] [facility] [address] [place] [address] Jenny Vázquez MD [address] [place] [address] Social History Tobacco Use Types Packs/Day Years [...] Visit [facility] ADULT DENT[facility] [address] [place] [address] Marialuisa Parsons documented as of this encounter Procedures Procedure Name Priority Date/Time Associated Diagnosis Comments PAP/HPV Routine 10/02/2022 documented in this encounter Results * Pap Smear (10/02/2022) Pap Negative for intraephithelial lesion or malignancy Negative for intraephithelial lesion or malignancy, Other HPV Undetected Result [facility] Unassigned Pcp HEALTH MAINTENANCE Final Result documented in this encounter Visit Diagnoses Not on filedocumented in this encounter Additional Health Concerns Assessment Noted Time PHQ-9 Depression Total Score: 0 10/22/19 23 1:17 PM EDT documented as of this encounter Care Teams Labeling Associate Relationship Specialty Start Date End Date Jenny Vázquez MD [address] [place] [address] PCP - General Family Medicine 04/13/18 documented as of this encounter
--- OUTSIDE RECORDS SUMMARY | 2025-03-27 19:59 | XMS_ITS | Encounter Summary ---
Author Organization [employer] Address [address] [facility] 7t [place] [address] Care Team Providers Care Phlebotomist Associate Name Role Phone Jenny Vázquez MD Primary Care Provider [phone] Reason for Visit * Reason Comments Med Change Request Encounter Details Date Type Department Care Team (Late st Contact Info) Description 11/23/2024 Refill [facility] [address] [place] [address] Jenny Vázquez MD [address] [place] [address] Social History Tobacco Use Types Packs/Day Years [...] Description 07/24/2025 12:45 PM EDT Office Visit [facility]ULT [facility] [address] [place] [address] Marialuisa Parsons documented as of this encounter Visit Diagnoses Not on filedocumented in this encounter Additional Health Concerns Assessment Noted Time PHQ-9 Depression Total Score: 16 025 2:05 PM EST documented as of this encounter Care Teams Phlebotomist Associate Relationship Specialty Start Date End Date Jenny Vázquez MD [address] [place] [address] PCP - General Family Medicine 04/13/18 documented as of this encounter
--- OUTSIDE RECORDS SUMMARY | 2025-03-27 19:59 | XMS_ITS | Encounter Summary ---
Author Organization [employer] Address [address] [facility] 7t [place] [address] Care Team Providers Care Academic Success Coordinator Name Role Phone Jenny Vázquez MD Primary Care Provider [phone] Reason for Visit * Reason Onset Date Comments Nurse Triage 03/09/2023 Encounter Details Date Type Department Care Team (Late st Contact Info) Description 03/09/2023 Telephone [facility] [address] [place] [address] Jenny Vázquez MD [address] [place] [address] Nurse Triage Social History Tobacco Use Types [...] Triage call Pt reports was seen in [facility] [place] and tested positive for Covid. Pt [...] needed. Follow up ED visit apt with [facility] [employer] [facility] 03/19/23 @ 115pm. Insurance is verified asactive prior to booking. Protocol Used: COVID-19 - Diagnosed or Suspected (Adult) Protocol-Based Disposition: Home Care Positive Triage Question: * COVID-19 diagnosed by doctor (or [facility] [facility]/PA) and mild symptoms (e.g., cough, fever, others) and no complications or SOB * All higher-acuity triage questions were negative Care Advice Discussed: * Reassurance and Education - Diagnosed With COVID-19 by Doctor (or [facility] [employer] [facility]/PA) and Mild Symptoms * General Care Advice [...] (high-pitched whistling sound), pt was seen at [facility] on 03/06 for asthma. Pt was tested positive for COVID and is still symptomatic. The caller accepted this outcome Please contact pt at [phone] documented in this encounter Plan of Treatment Upcoming Encounters Date Type Department Care Team (Late st Contact Info) Description 07/24/2025 12:45 PM EDT Office Visit [facility] ADULT DENT[facility] [address] [place] [address] Marialuisa Parsons documented as of this encounter Visit Diagnoses Not on filedocumented in this encounter Additional Health Concerns Assessment Noted Time PHQ-9 Depression Total Score: 0 10/22/19 23 1:17 PM EDT documented as of this encounter Care Teams Academic Success Coordinator Relationship Specialty Start Date End Date Jenny Vázquez MD [address] [place] [address] PCP - General Family Medicine 04/13/18 documented as of this encounter
--- OUTSIDE RECORDS SUMMARY | 2025-03-27 19:59 | XMS_ITS | Clinical Summary ---
Author Organization [employer] Address [address] [place] [address] [address] [place] [address] Care Team Providers Care Vice President Business Development Name Role Phone Jenny Vázquez MD Primary Care Provider [phone] Allergies Active Allergy Reactions Criticality Noted Date Comments Martir Inhibitors 04/21/2022 Ascorbate 02/05/2024 Latex 02/05/2024 Lisinopril Hives 02/18/2023 New Skin 02/05/2024 Peanut Oil 04/21/2022 Peanut-Containing Drug Products 01/12 Pineapple 02/05/2024 [place] Extract Other 02/08/2024 Zoster Vaccine Live 12/12/2016 [...] 2 Active fluticasone (Flonase) 50 MCG/ACT nasal sprayIndications: Allergic rhinitis, unspecified seasonality, unspecified trigger INSTILL 2 SPRAYS IN EACH NOSTRIL ONCE DAILY 16 g 11 3 Active budesonide-formot angeline (Symbicort) 160-4.5 MCG/ACT inhalerIndication s:Moderate persistent asthma without complication inhale 1 puff by inhalation route 2 times every day in the morning and evening 1 each 11 3 Active Spacer/Aero-Holdi ng Chambers (AeroChamber MV) inhalerIndication s:Moderate persistent asthma without complication Use as instructed [...] EVERY MORNING 90 tablet 3 3 Active metoprolol succinate XL (Toprol-XL) 50 MG 24 hr tablet TAKE 2 TABLETS BY MOUTH ONCE DAILY IN THE MORNING 180 tablet 3 3 Active Ventolin HFA 108 (90 Base) MCG/ACT inhalerIndication s:Moderate persistent asthma without complication INHALE 2 PUFFS BY MOUTH EVERY 4 HOURS NEEDED SHORTNESS OF BREATH OR FOR WHEEZING 18 g 3 4 Active loratadine (Claritin) 10 MG tabletIndications :Allergic rhinitis, unspecified seasonality, unspecified trigger TAKE 1 [...] times daily. Active montelukast (Singulair) 10 MG tabletIndications :Moderate persistent asthma without complication,Yeison rgic rhinitis, unspecified seasonality, unspecified trigger Take 1 tablet (10 mg) by mouth at bedtime. 90 tablet 3 4 Active semaglutide (Ozempic) 2 MG/1.5ML solution pen-injector Inject 0.5 mg under the skin 1 (one) time per week. 1.5 mL 11 5 Active triamcinolone (Kenalog) 0.1 % ointment APPLY TO THE AFFECTED AREA(S) TWICE DAILY 453 g 3 5 Active Alcohol Swabs (Alcohol Prep) pads Check blood sugar once daily and as needed 100 each 11 5 Active FreeStyle lancets 1 each by Other route Once per day. Check blood glucose 100 each 12 5 Active FREESTYLE LITE test strip Check blood glucose 100 each 12 5 Active sertraline (Zoloft) 25 MG tablet 5 Active Incruse Ellipta 62.5 MCG/ACT aerosol powder take 1 puff by mouth every day 4 Active glucose blood (OneTouch Ultra) test stripIndications: Type 2 diabetes mellitus without complication, without long-term current use of insulin (HCC) Use to test blood sugar once daily 50 each 12 03/15/2025 5:16 PM EST 5 11/24/19 26 Active Blood Glucose Monitoring Suppl (ONE TOUCH ULTRA 2) w/Device kitIndications:Ty pe 2 diabetes mellitus without complication, without long-term current use of insulin (HCC) Use to test blood sugar once daily 1 kit 5 Active Lancets (onetouch ultrasoft) lancetsIndication s:Type 2 diabetes mellitus without complication, without long-term current use of insulin (HCC) 1 each by Other route Once per day. Check blood sugar once daily 360 each 03/15/2025 5:16 PM EST 5 11/24/19 26 Active EPINEPHrine (Epipen) 0.3 MG/0.3ML injection syringe Inject into upper leg. Call 911 after use. 1 each 1 5 Active pregabalin (Lyrica) 50 MG capsuleIndication s:Fibromyalgia Take 1 capsule (50 mg) by mouth 2 times daily. 60 capsule 3 03/15/2025 5:16 PM EST 5 Active Active Problems Problem Noted Date Diagnosed Date Open fracture of tooth 2025 Dental plaque 2025 Retained dental root 2025 Ganglion cyst of volar aspect of left wrist 10/11 Assessment & Plan (02/19/2025 11:00 AM EST): - previously seen by [facility] Ortho. Surgical excisional biopsy was recommended, but postponed due to her cardiac condition. Recently seen by [facility] orthopedist again for possible surgical excisional biopsy. Due to her high risk factors, they agreed to manage it conservatively at this time Assessment & Plan (10/24/2024 5:04 AM EDT): - previously seen by [facility] Ortho. Surgical excisional biopsy was recommended, but [...] baking, cleaning her home and listening to episcopal music. Araseli reports taking medication prescribed by her PCP and having improvements from them. clinician will provide additional support if needed during next medical appointment. Ischemic heart disease 08/05/2022 Assessment & Plan (02/14/2025 9:36 AM EST): -Canceling And Cutting Control Clerk: [facility], Dr. Cesar and Janna Cruz NP, last [...] discontinued when she was last seen by saddle lining stitcher in Apr 2024. -Continue Metoprolol, ASA and Atorvastatin -Continue isosorbide for antianginal effect. Recently increased dose to 90 mg daily. -Cont working on lifestyle modifications. Assessment & Plan (10/24/2024 5:09 AM EDT): -Canceling And Cutting Control Clerk: Dr. Arsenio TAPIA and Janna Cruz NP, [...] discontinued when she was last seen by saddle lining stitcher in Apr 2024. -Continue Metoprolol, ASA and Atorvastatin -Continue isosorbide for antianginal effect. Recently increased dose to 90 mg daily. -Cont working on lifestyle modifications. Assessment & Plan (06/06/2024 3:21 PM EST): -Canceling And Cutting Control Clerk: Dr. Arsenio TAPIA and Janna Cruz NP, [...] discontinued when she was last seen by saddle lining stitcher in Apr 2024. -Continue Metoprolol, ASA and Atorvastatin -Continue isosorbide -Cont working on lifestyle modifications. Assessment & Plan (02/15/2024 1:39 PM EST): -Canceling And Cutting Control Clerk: Dr. Arsenio Bernard, last seen on 01/08/23 [...] Assessment & Plan (01/28/2023 8:56 PM EDT): -Canceling And Cutting Control Clerk: Dr. Arsenio Bernard, last seen on 01/08/23 [...] Assessment & Plan (10/28/2022 7:06 AM EDT): -Canceling And Cutting Control Clerk: Dr. Arsenio TAPIA, last seen on 08/05/22; [...] Assessment & Plan (08/15/2022 6:38 AM EDT): -Canceling And Cutting Control Clerk: [facility], Dr. Cesar, appt today - NSTEMI in [...] on 10/20/22. Being scheduled for Pre-Op with Canceling And Cutting Control Clerk. Pt needs Cardiac Clearance Before Hemorrhoidectomy. - [...] (10/24/2024 5:10 AM EDT): - evaluated by axle inspector - wears hearing aids; needs a new referral Assessment & Plan (02/10/2024 8:13 AM EDT): - evaluated by axle inspector - wears hearing aids Assessment & Plan (08/15/2022 6:43 AM EDT): - evaluated by axle inspector - wears hearing aids Type 2 [...] May 2024, plantar fasciitis, ingrown toenail, sees perfumer. -Last microalbumin test: 06/07/24 UACR TNP -Last [...] May 2024, plantar fasciitis, ingrown toenail, sees perfumer. -Last microalbumin test: 06/07/24 UACR TNP -Last [...] May 2024, plantar fasciitis, ingrown toenail, sees perfumer. -Last microalbumin test: 11/05/22 UACR 4.9; -Last [...] exam: 08/05/22, plantar fasciitis, ingrown toenail, sees perfumer. -Last microalbumin test: 11/05/22 UACR 4.9; -Last [...] exam: 08/05/22, plantar fasciitis, ingrown toenail, sees perfumer. -Last microalbumin test: 11/05/22 UACR 4.9; -Last [...] exam: 08/05/22, plantar fasciitis, ingrown toenail, sees perfumer. -Last microalbumin test: 10/25/18 UACR no microalbuminuria [...] exam: 08/05/22, plantar fasciitis, ingrown toenail, sees perfumer. -Last microalbumin test: 10/25/18 UACR no microalbuminuria [...] - Metoprolol succinate dose was increased by [facility] saddle lining stitcher willy January 2025 Assessment & Plan (10/13/2024 10:49 [...] Plan (08/05/2022 9:28 AM EDT): Seen by saddle lining stitcher, Dr. Cesar, on 01/09/22 for CAD and PVC f/u: -TTE was ordered by Canceling And Cutting Control Clerk -most recent Holter monitor in Dec 2019 PVC 3%. -09/20/21 Echo LVEF 45-50%, p/s Stent -Continue metoprolol succinate 50 mg TWO tablets daily -Continue BB -Previously flecainide 100 mg BID. d/c d/t hospitalization Fibromyalgia 07/20/2014 Assessment & Plan (02/19/2025 11:00 AM EST): Followed by Wire Welder -Continue pregabalin, use judiciously -Continue staying active Assessment & Plan (06/06/2024 3:28 PM EST): Followed by Wire Welder -Continue Lyrica, use judiciously -Continue staying active Assessment & Plan (02/10/2024 8:12 AM EDT): Followed by Wire Welder -Continue Lyrica, use judiciously -Continue staying active Assessment & Plan (08/05/2022 9:27 AM EDT): Followed by Wire Welder -Continue Lyrica, use judiciously -Continue staying active Allergic rhinitis 03/24/2013 Assessment & Plan (02/15/2024 1:48 PM EST): - continue loratadine and montelukast - following with specialist icu Assessment & Plan (10/21/2022 2:19 PM EDT): - continue loratadine and montelukast - will check status of referral Assessment & Plan (08/15/2022 6:43 AM EDT): - continue loratadine and montelukast - refer to a new specialist icu Depression 03/24/2013 Assessment & Plan (02/19/2025 10:58 [...] & Plan (02/19/2025 11:03 AM EST): - wind commissioning technician changed mask for nasal pillow per patient's request in May 2023 - recommended CPAP use Assessment & Plan (10/13/2024 10:51 PM EDT): - wind commissioning technician changed mask for nasal pillow per patient's request in May 2023 - recommended CPAP use Assessment & Plan (06/06/2024 3:27 PM EST): - wind commissioning technician changed mask for nasal pillow per patient's request in May 2023 - recommended CPAP use Assessment & Plan (02/14/2024 5:29 PM EST): - wind commissioning technician changed mask for nasal pillow per patient's request in May 2023 - recommended CPAP use Assessment & Plan (01/28/2023 8:51 PM EDT): - continue CPAP Asthma 12/10/2012 Assessment & Plan (02/19/2025 11:03 AM EST): - Previously followed by Allergy / retail service specialist : Dr. Ahn - Currently followed by Dr. Webber, [facility] pulmology, last seen in May 2023 - [...] EDT): - Previously followed by Allergy / retail service specialist : Dr. Ahn - Seen by new wind commissioning technician at [facility] in May 2023 - No history of intubation, Hx pneumonia and influenza in Apr 2018 - Severe exacerbation 1 or 2 times / year - Last exacerbation in Mar 2024, Rx prednisone, doxycycline. - Continue Symbicort and Singulair as maintenance. - Continue albuterol HFA / neb prn as rescue. Assessment & Plan (06/06/2024 6:25 AM EST): - Previously followed by Allergy / retail service specialist : Dr. Ahn - Seen by new wind commissioning technician at [facility] in May 2023 - No history of [...] EST): - Previously followed by Allergy / retail service specialist : Dr. Ahn - Seen by new wind commissioning technician at [facility] in May 2023 - No history of intubation, Hx pneumonia and influenza in Apr 2018 - Severe exacerbation 1 or 2 times / year - Continue Symbicort and Singulair as maintenance. - Continue albuterol HFA / neb prn as rescue. Assessment & Plan (01/28/2023 8:51 PM EDT): - Previously followed by Allergy / retail service specialist : Dr. Ahn - Seen by new wind commissioning technician at [facility] in August 2022 - No history of intubation, Hx pneumonia and influenza in Apr 2018 - Severe exacerbation 1 or 2 times / year - Continue Symbicort and Singulair as maintenance. - Continue albuterol HFA / neb prn as rescue. Assessment & Plan (10/28/2022 6:57 AM EDT): - Previously followed by Allergy / retail service specialist : Dr. Ahn - Seen by new wind commissioning technician at [facility] in August 2022 - No history of intubation, Hx pneumonia and influenza in Apr 2018 - Severe exacerbation 1 or 2 times / year - Continue Symbicort and Singulair as maintenance. - Continue albuterol HFA / neb prn as rescue. Assessment & Plan (08/15/2022 6:29 AM EDT): - Allergy / retail service specialist : Dr. Ahn, needs a new allergy presentation specialist - No history of intubation, Hx [...] she would like me to call her saddle lining stitcher and try to get a sooner appointment and she said shes fine and can wait. I asked her if she felt safe and she said she did. We discussed her nitroglycerin and when to use it and ED precautions. Differentials: stable vs unstable angina, left sided axillary pain, frequent or high PVC burden. Encounters Date Type Department Care Team Description 03/22/2025 Orders Only [facility] [place] [address] ProviderMan MD 03/15/2025 Orders Only [facility] [place] [address] Jenny Vázquez MD 02/28/2025 Orders Only GENERIC EXTERNAL DATA DEPARTMENT Provider, Generic External Data 02/22/2025 Telephone [facility] [place] [address] Nathanael Crespo DDS 02/20/2025 Telephone [facility] [place] [place] [address] Jenny Vázquez MD Care Coordination; Medication Question 02/15/2025 Travel 02/14/2025 1:15 PM EST Office Visit [facility] [place] [address] Jenny Vázquez MD Primary hypertension (Primary Dx); [...] seasonality, unspecified trigger 02/14/2025 Travel 02/13/2025 Telephone [facility] [address] Vivi Alvarez MA 02/07/2025 Travel 02/01/2025 Refill [facility] [place] [address] Jenny Vázquez MD Fibromyalgia 2025 12:45 PM EDT Office Visit [facility] [place] [address] Marialuisa Parsons Open fracture of tooth, initial [...] housing situation today? I have sarikajazmyne piedra 02/08/[address] you [...] 07/24/2025 12:45 PM EDT Office Visit [facility] [address] [place] [address] Marialuisa Parsons Health Maintenance Due Date Last [...] 11/18/2021, 08/04/2020, 07/11/2020 SDOH Screening 02/07/2025 02/08/2024 Diabetes: Urine Protein Screening 06/07/2025 06/07/2024, 11/05/2022, [...] 01/20/2026 01/20/20, 02/18/2023, 08/20/2020, Additional history exists Alcohol/Substance Use Screening 02/14/2026 02/14/2025 Tobacco Screening 02/19/2026 02/19/2025 Colonoscopy 12/09/2026 12/09/2016 Colorectal Cancer Screening 12/09/2026 Eye Exam 02/27/2027 02/27/2025, 03/03/2023 Mammogram 03/07/2027 03/07/2025, 04/2023, 02/05/2023, Additional history exists Dental X-Ray: Full Mouth 01/21/2028 2025, 08/11 [...] chronic kidney disease No Jenny Vázquez MD Procedures Procedure Name Priority Date/Time Associated Diagnosis Comments BI MAMMOGRAM SCREENING TOMOSYNTHESIS BILATERAL Routine 03/07/2025 2:19 PM EST GLUCOSE, WHOLE BLOOD Routine 02/28/2025 9:26 AM EST HM DIABETES EYE EXAM Routine 02/27/2025 POCT GLYCATED HEMOGLOBIN, TOTAL Routine 02/14/2025 1:30 PM EST Type 2 diabetes mellitus without complication, without long-term current use of insulin ([facility]) POCT GLUCOSE Routine 02/14/2025 1:28 PM EST Type 2 diabetes mellitus without complication, without long-term current use of insulin ([facility]) CASE PRESENTATION, DETAILED AND EXTENSIVE TREATMENT PLANNING Routine 2025 12:45 PM EDT ORAL HYGIENE INSTRUCTIONS Routine 2025 12:45 PM EDT Dental plaque Dental calculus PROPHYLAXIS - ADULT Routine 2025 1 2:45 PM EDT Dental plaque Dental calculus INTRAORAL - COMPLETE SERIES OF RADIOGRAPHIC IMAGES Routine 2025 12:45 PM EDT PERIODIC ORAL EVALUATION - ESTABLISHED PATIENT Routine 2025 12:45 PM EDT ALBUMIN, RANDOM URINE W/CREATININE Routine 06/07/2024 10:46 AM EST Type 2 diabetes mellitus without complication, without long-term current use of insulin ([facility]/HCC) Primary hypertension LIPID PANEL WITH REFLEX TO DIRECT LDL Routine 06/07/2024 10:46 AM EST Dyslipidemia HM COLONOSCOPY Routine 12/09/2016 from Last 3 Months or Most Recently Relevant to Health Maintenance Results * BI Mammogram Screening Tomosynthesis Bilateral (03/07/2025 2:19 PM EST) Anatomical Region Laterality Modality Breast Bilateral Mammography 03/07/2025 2:19 PM EST Narrative 03/08/2025 5:59 PM EST [place] [facility] [address] [place] [address] Mammography Report Signed Patient: Araseli Leary MR#: [id number] : 1955 Acct:[id number] Age/Sex: 70 / F ADM Date: 03/07/25 Loc: [facility] Attending Dr: Jenny Vázquez MD Ordering Physician: Jenny Vázquez MD Results: 1Negative Date of Service: 03/07/25 Follow Up: 1 Year From [facility] Mammogram Procedure(s): MM tomosynthesis screening BI Accession Number(s): [id number] cc: Jenny Vázquez MD Reason For Exam: SCREENING EXAMINATION: MM SCREENING DIGITAL BREAST TOMOSYNTHESIS, BILATERAL CLINICAL INFORMATION: Screening. Asymptomatic. COMPARISON: Comparison made to multiple prior, most recent February 12, 2024, and most remote August 07, 2017. TECHNIQUE: Digital breast tomosynthesis is performed in mediolateral oblique and craniocaudal views along with computer-aided detection (CAD). Synthesized 2D images are generated from the tomosynthesis. FINDINGS: BREAST COMPOSITION: There are scattered areas of fibroglandular density. BILATERAL BREASTS: No significant masses, suspicious calcifications or other abnormalities are seen in either breast. MM/MM tomosynthesis screening BI IMPRESSION: BILATERAL BREASTS: Negative, no mammographic evidence of malignancy. Normal interval follow-up is recommended in 12 months. ASSESSMENT: BI-RADS: Category 1: Negative RECOMMENDATION: Routine annual mammography screening. FOLLOW-UP: 1 year F/U This examination should not preclude the clinical evaluation of a suspicious palpable abnormality. This patient's information was entered into a reminder system with a target due date for their next mammogram. Electronically signed by: Keke Desir MD 03/08/2025 05:56 PM EST Dictated By: Keke Desir MD Signed By: <Electronically signed by Keke Desir MD in OV> 03/08/25 1756 DD/ 1419 TD/TT: 03/07/25 1428 Wood Carving Lathe Operator: Procedure Note Donotuseinterpreter, Image - 03/08/2025 [facility] [address] [place] [address] Mammography Report Signed Patient: Jose M Leary#: [id number] : 1955cct:[id number] Age/Sex: 70 / FADM Date: 03/07/25 Loc: [facility] Attending Dr: Jenny Vázquez MD Ordering Physician: Jenny Vázquez MDResults: 1Negative Date of Service: 03/07/25Follow Up: 1 Year From Orig inal Mammogram Procedure(s): MM tomosynthesis screening BI Accession Number(s): [id number] cc: Jenny Vázquez MD Reason For Exam: SCREENING EXAMINATION: MM SCREENING DIGITAL BREAST TOMOSYNTHESIS, BILATERAL CLINICAL INFORMATION: Screening. Asymptomatic. COMPARISON: Comparison made to multiple prior, most recent February 12, 2024, and most remote August 07, 2017. TECHNIQUE: Digital breast tomosynthesis is performed in mediolateral oblique and craniocaudal views along with computer-aided detection (CAD). Synthesized 2D images are generated from the tomosynthesis. FINDINGS: BREAST COMPOSITION: There are scattered areas of fibroglandular density. BILATERAL BREASTS: No significant masses, suspicious calcifications or other abnormalities are seen in either breast. MM/MM tomosynthesis screening BI IMPRESSION: BILATERAL BREASTS: Negative, no mammographic evidence of malignancy. Normal interval follow-up is recommended in 12 months. ASSESSMENT: BI-RADS: Category 1: Negative RECOMMENDATION: Routine annual mammography screening. FOLLOW-UP: 1 year F/U This examination should not preclude the clinical evaluation of a suspicious palpable abnormality. This patient's information was entered into a reminder system with a target due date for their next mammogram. Electronically signed by: Keke Desir MD 03/08/2025 05:56 PM EST RP Dictated By: Keke Desir MD Signed By: <Electronically signed by Keke Desir MD in OV> 03/08/25 1756 DD/ 1419 TD/TT: 03/07/25 1428 Wood Carving Lathe Operator: Jenny Vázquez MD IMG BI PROCEDURES Final Result * Glucose, Whole Blood (02/28/2025 9:26 AM EST) Glucose, Whole Blood 107 60 - 115 mg/dL [facility] Comment:METER #: [id number] 02/28/2025 9:26 AM EST 02/28/2025 9:29 AM EST Generic External Data Provider LAB BLOOD ORDERAB LES Final Result [facility] [address] [place] [phone] * Diabetes Eye Exam (02/27/2025) Man Provider HEALTH MAINTENANCE Final Result * (ABNORMAL) POCT Hgb A1c (02/14/2025 1:30 PM EST) Hemoglobin A1C 6.0(A) 4.0 - 5.7 % QC Media Lot # [id number] Lot# Expiration Date [id number] Blood 02/14/2025 1:30 PM EST Jenny Vázquez MD POINT OF CARE TEST ENTER/EDIT OR DERABLES Final Result * POCT Glucose (02/14/2025 1:28 PM EST) Glucose Blood, POC 156 60 - 200 mg/dL QC Media Lot # [id number] Lot# Expiration Date Blood Capillary blood specimen / Unknown 02/14/2025 1:28 PM EST Jenny Vázquez MD POINT OF CARE TEST ENTER/EDIT OR DERABLES Edited Result - Final * Lipid Panel with Reflex to Direct LDL (06/07/2024 10:46 AM EST) Triglycerides 106 <150 mg/dL [facility] Comment:Desirable Triglyceri de: less than 150 mg/dLBorderline High Triglyceride 150-199 mg/dLHigh Triglyceride: 200-499 mg/dLVery High Triglyceride: greater than or equal to 5OO mg/dL Cholesterol 121 <200 mg/dL [facility] Comment:Desirable Cholestero l: less than 200 mg/dLBorderline High Cholesterol: 200-239 mg/dLHigh Cholesterol: greater than 239 mg/dL LDL Cholesterol Calculated 56 <100 mg/dL [facility] Comment:Desirable LDL: less than 100 mg/dLNear Optimal/Above Optimal LDL: 110- 129 mg/dLBorderline High LDL: 130-159 mg/dLHigh LDL: 160-189 mg/dLVery High LDL: greater than or equal to 190 mg/dL HDL Cholesterol 44 >40 mg/dL [facility] Comment:Desirable HDL: great er than 40 mg/dL Note: This HDL assay may give artificially low results in patients with liver disease. Blood 06/07/2024 10:4 6 AM EST 06/07/2024 11:30 AM EST Jenny Vázquez MD LAB BLOOD ORDERABLES Final Resul t [facility] [address] [place] [phone] * Albumin, Random Urine W/Creatinine (06/07/2024 10:46 AM EST) Creatinine, Urine 93.36 mg/dL [facility] Microalbumin Urine <5.0 mg/L [facility] Microalbum Creatinine Ratio Ur TNP <30 ug/mg cr [facility] Comment:Unable to calculate albumin/creatinine ratio due to lowmicroalbumin or creatinine result. Urine 06/07/2024 10:4 6 AM EST 06/07/2024 11:32 AM EST us Jenny Vázquez MD LAB URINE ORDERABLES Final Resul t [facility] [address] [place] [address] [phone] * Hm Colonoscopy (12/09/2016) Colonoscopy Normal Normal 12/09/2016 Kerri [...] 03/15/2025 Patient has chronic kidney disease 03/15/2025 Insurance [employer] MEDICARE REPLACEMENT [address] [place] [id number] [address] [place] [id number] Care Teams Vice President Business Development Relationship Specialty Start Date End Date Jenny Vázquez MD [address] [facility] [place] [id number] PCP - General Family Medicine 04/13/18
== END 2025-03-27 14:17 | disposition home or self-care (01) ==
LOC: HO.HCS 13:45
PROVIDERS: PCP Family Medicine
DX: I25.10 Atherosclerotic heart disease of native coronary artery without angina pectoris (principal); Z95.5 Presence of coronary angioplasty implant and graft; I44.7 Left bundle-branch block, unspecified; I49.3 Ventricular premature depolarization; G47.33 Obstructive sleep apnea (adult) (pediatric)
CPT/HCPCS: 99214; G2211

== ENCOUNTER → 2025-03-27 13:44 | Outpatient (BNVA) | payer MEDICARE, SELFPAY | PROVIDERS: PCP Family Medicine | DX: I25.10 Atherosclerotic heart disease of native coronary artery without angina pectoris (principal); I49.3 Ventricular premature depolarization; G47.33 Obstructive sleep apnea (adult) (pediatric); I44.7 Left bundle-branch block, unspecified; Z79.82 Long term (current) use of aspirin; Z79.899 Other long term (current) drug therapy; Z99.89 Dependence on other enabling machines and devices; Z71.3 Dietary counseling and surveillance; Z71.82 Exercise counseling; Z68.32 Body mass index [BMI] 32.0-32.9, adult; Z95.5 Presence of coronary angioplasty implant and graft | CPT/HCPCS: 99212 ==

== ENCOUNTER 2025-03-30 13:33 | Outpatient (AMB) | payer MEDICARE, SELFPAY ==
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
[2025-03-30 13:36] VITALS: BP 118/74; BMI 32.8
--- OUTSIDE RECORDS SUMMARY | 2025-03-30 17:39 | XMS_ITS | Encounter Summary ---
Author Organization [employer] Address [address] [facility] 7[address] [place] [address] Care Team Providers Care Manager Presentation Name Role Phone Jenny Vázquez MD Primary Care Provider [phone] Reason for Visit * Reason Comments Med Change Request Encounter Details Date Type Department Care Team (Late st Contact Info) Description 11/23/2024 Refill [facility] MEDICINE [address] [place] [address] Jenny Vázquez MD [address] [place] [address] Social History Tobacco Use Types Packs/Day Years [...] Description 07/24/2025 12:45 PM EDT Office Visit [facility] ADULT DENTAL [address] [place] [address] Marialuisa Parsons documented as of this encounter Visit Diagnoses Not on filedocumented in this encounter Additional Health Concerns Assessment Noted Time PHQ-9 Depression Total Score: 16 025 2:05 PM EST documented as of this encounter Care Teams Manager Presentation Relationship Specialty Start Date End Date Jenny Vázquez MD [address] [place] [address] PCP - General Family Medicine 04/13/18 documented as of this encounter
--- OUTSIDE RECORDS SUMMARY | 2025-03-30 17:39 | XMS_ITS | Encounter Summary ---
Author Organization [employer] Address [address] [facility] [address] [place] [address] Care Team Providers Care Guardian Ad Litem Name Role Phone Jenny Vázquez MD Primary Care Provider [phone] Reason for Visit * Reason Onset Date Comments Nurse Triage 03/09/2023 Encounter Details Date Type Department Care Team (Late st Contact Info) Description 03/09/2023 Telephone [facility] MEDICINE [address] [place] [address] Jenny Vázquez MD [address] [place] [address] Nurse Triage Social History Tobacco Use Types [...] Triage call Pt reports was seen in [facility] 03[place]06[place]23 and tested positive for Covid. Pt [...] needed. Follow up ED visit apt with BALLISTICS TESTER Zeinab 03/19/23 @ 115pm. Insurance is verified asactive prior to booking. Protocol Used: COVID-19 - Diagnosed or Suspected (Adult) Protocol-Based Disposition: Home Care Positive Triage Question: * COVID-19 diagnosed by doctor (or BALLISTICS TESTER/PA) and mild symptoms (e.g., cough, fever, others) and no complications or SOB * All higher-acuity triage questions were negative Care Advice Discussed: * Reassurance and Education - Diagnosed With COVID-19 by Doctor (or BALLISTICS TESTER/PA) and Mild Symptoms * General Care Advice [...] (high-pitched whistling sound), pt was seen at [facility] on 03/06 for asthma. Pt was tested positive for COVID and is still symptomatic. The caller accepted this outcome Please contact pt at [phone] documented in this encounter Plan of Treatment Upcoming Encounters Date Type Department Care Team (Late st Contact Info) Description 07/24/2025 12:45 PM EDT Office Visit [facility] ADULT DENTAL [address] [place] [address] Marialuisa Parsons documented as of this encounter Visit Diagnoses Not on filedocumented in this encounter Additional Health Concerns Assessment Noted Time PHQ-9 Depression Total Score: 0 10/22/19 23 1:17 PM EDT documented as of this encounter Care Teams Guardian Ad Litem Relationship Specialty Start Date End Date Jenny Vázquez MD [address] [place] [address] PCP - General Family Medicine 04/13/18 documented as of this encounter
--- OUTSIDE RECORDS SUMMARY | 2025-03-30 17:39 | XMS_ITS | Encounter Summary ---
Author Organization [employer] Address [address] [place] [address] [address] [place] [address] Care Team Providers Care Access Services Representative Name Role Phone Jenny Vázquez MD Primary Care Provider [phone] Encounter Details Date Type Department Care Team (Late st Contact Info) Description 10/31/[address] [facility] MEDICINE [address] [place] [address] Jenny Vázquez MD [address] [place] [address] Social History Tobacco Use Types Packs/Day Years [...] 07/24/2025 12:45 PM EDT Office Visit [facility] ADULT DENTAL [address] [place] [address] Marialuisa Parsons documented as of this encounter Procedures Procedure Name Priority Date/Time Associated Diagnosis Comments PAP/HPV Routine 10/02/2022 documented in this encounter Results * Pap Smear (10/02/2022) Pap Negative for intraephithelial lesion or malignancy Negative for intraephithelial lesion or malignancy, Other HPV Undetected Result [facility] Unassigned Pcp HEALTH MAINTENANCE Final Result documented in this encounter Visit Diagnoses Not on filedocumented in this encounter Additional Health Concerns Assessment Noted Time PHQ-9 Depression Total Score: 0 10/22/19 23 1:17 PM EDT documented as of this encounter Care Teams Access Services Representative Relationship Specialty Start Date End Date Jenny Vázquez MD [address] [place] [address] PCP - General Family Medicine 04/13/18 documented as of this encounter
--- OUTSIDE RECORDS SUMMARY | 2025-03-30 17:39 | XMS_ITS | Encounter Summary ---
Author Organization [employer] Address [address] [place] [address] [address] [place] [address] Care Team Providers Care Direct Care Worker Name Role Phone Jenny Vázquez MD Primary Care Provider [phone] Encounter Details Date Type Department Care Team (Late st Contact Info) Description 04/29/2022 Orders Only [facility] CHC MED & PEDS [address] [place] [address] Lorraine Arroyo LPN Social History Tobacco Use [...] Description 07/24/2025 12:45 PM EDT Office Visit [facility] ADULT DENTAL [address] [place] [address] Marialuisa Parsons documented as of this encounter Procedures Procedure Name Priority Date/Time Associated Diagnosis Comments LIPID PANEL, STANDARD Routine 11/05/2022 8:43 AM EDT PAP SMEAR Routine 10/02/2022 3:36 PM EDT documented in this encounter Results * Lipid Panel, Standard (11/05/2022 8:43 AM EDT) Triglycerides 76 mg/dL [facility] Comment:Desirable Triglyceri de: less than 150 mg/dLBorderline High Triglyceride 150-199 mg/dLHigh Triglyceride: 200-499 mg/dLVery High Triglyceride: greater than or equal to 5OO mg/dL Cholesterol 118 mg/dL [facility] Comment:Desirable Cholestero l: less than 200 mg/dLBorderline High Cholesterol: 200-239 mg/dLHigh Cholesterol: greater than 239 mg/dL LDL Cholesterol Calculated 56 mg/dl [facility] Comment:Desirable LDL: less than 100 mg/dLNear Optimal/Above Optimal LDL: 110- 129 mg/dLBorderline High LDL: 130-159 mg/dLHigh LDL: 160-189 mg/dLVery High LDL: greater than or equal to 190 mg/dL HDL Cholesterol 47 mg/dL [facility] Comment:Desirable HDL: great er than 40 mg/dL Note: This HDL assay may give artificially low results in patients with liver disease. 11/05/2022 8:43 AM EDT 11/05/2022 11:40 AM EDT us Jenny Vázquez MD LAB BLOOD ORDERABLES Final Resul t [facility] [address] [place] [phone] * Pap Smear (10/02/2022 3:36 PM EDT) 10/02/2022 3:36 PM EDT 10/06/2022 12:00 PM EDT Narrative [facility] - 10/27/2022 10:49 AM EDT ----- ------- Name: Araseli Leary Age/Sex: 67/F : 1955 Unit#: [id number] Attend Dr: Argentina Mak CNM Re10/02/22 Status: DEP REF Location: [facility] Disch: ----- ------- SPEC : [id number] RECD: 10/06/22-1200 STATUS: GABRIELA JAVIER NUM: [id number] TODD: 10/02/22-[address] [facility] [address]: Argentina Mak CNM ENTERED: 10/06/22-1318 SP [...] 59, 66, 69) HPV testing performed by [employer] [place], [place]. See reference laboratory portion of the EMR for entire report. Clinical Information LMP: Menopausal Previous PAP test: 2018, ASCUS Material Received ThinPrep-Cervical Copies To: Argentina Mak CNM [address] [place] [address] Dr. Lamb [address] [place] [address] [phone] Jenny Vázquez MD [address] [place] [phone] ----- ------- Signed (signature on file) Berlin Rodriguez MD 10/27/22 1049 ----- ------- END OF REPORT [facility] External Provider LAB [facility] ORDERABLES Final Result [facility] [address] [place] [address] [phone] documented in this encounter Visit Diagnoses Not on filedocumented in this encounter Care Teams Direct Care Worker Relationship Specialty Start Date End Date Jenny Vázquez MD [address] [place] [phone] PCP - General Family Medicine 04/13/18 documented as of this encounter
--- OUTSIDE RECORDS SUMMARY | 2025-03-30 17:39 | XMS_ITS | Encounter Summary ---
Author Organization [employer] Address [address] [facility] 7t [place] [address] Care Team Providers Care Inspector Eyeglass Frames Name Role Phone Jenny Vázquez MD Primary Care Provider [phone] Reason for Visit * Reason Onset Date Comments Med Refill 06/08/2023 Encounter Details Date Type Department Care Team (Late st Contact Info) Description 06/08/[address] [facility] MEDICINE [address] [place] [address] Loyda Clark MD [address] [place] [address] Fibromyalgia Social History Tobacco Use Types Packs/Day [...] 07/24/2025 12:45 PM EDT Office Visit [facility] ADULT DENTAL [address] [place] [address] Marialuisa Parsons documented as of this encounter Visit Diagnoses Diagnosis Fibromyalgia Unspecified myalgia and myositis documented in this encounter Additional Health Concerns Assessment Noted Time PHQ-9 Depression Total Score: 0 10/22/19 23 1:17 PM EDT documented as of this encounter Care Teams Inspector Eyeglass Frames Relationship Specialty Start Date End Date Jenny Vázquez MD [address] [place] [address] PCP - General Family Medicine 04/13/18 documented as of this encounter
--- OUTSIDE RECORDS SUMMARY | 2025-03-30 17:39 | XMS_ITS | Encounter Summary ---
Author Organization [employer] Address [address] [facility] [address]t [place] [address] Care Team Providers Care Frame Feeder Name Role Phone Jenny Vázquez MD Primary Care Provider [phone] Encounter Details Date Type Department Care Team ([facility] st Contact Info) Description 03/22/2025 Orders Only [facility] [address] [place] [address] Provider, MD Man Social History Tobacco Use [...] PM EDT Office Visit [facility] ADULT DENTAL [address] [place] [address] Marialuisa Parsons documented as of this encounter [...] documented as of this encounter Care Teams Frame Feeder Relationship Specialty Start Date End Date Jenny Vázquez MD [address] [place] [id number] PCP - General Family Medicine 04/13/18 documented as of this encounter
--- OUTSIDE RECORDS SUMMARY | 2025-03-30 17:39 | XMS_ITS | Encounter Summary ---
Author Organization [employer] Address [address] [facility] 7t [place] [address] Care Team Providers Care Floor Installation Mechanic Name Role Phone Jenny Vázquez MD Primary Care Provider [phone] Encounter Details Date Type Department Care Team (Late st Contact Info) Description 03/10/2023 Abstract [facility] [address] [place] [address] Nathanael Crespo DDS [address] [place] [address] Social History Tobacco Use Types Packs/Day Years [...] Description 07/24/2025 12:45 PM EDT Office Visit [facility] [address] [place] [address] Marialuisa Parsons documented as of this encounter Visit Diagnoses Not on filedocumented in this encounter Additional Health Concerns Assessment Noted Time PHQ-9 Depression Total Score: 0 10/22/19 23 1:17 PM EDT documented as of this encounter Care Teams Floor Installation Mechanic Relationship Specialty Start Date End Date Jenny Vázquez MD [address] [place] [address] PCP - General Family Medicine 04/13/18 documented as of this encounter
--- OUTSIDE RECORDS SUMMARY | 2025-03-30 17:39 | XMS_ITS | Encounter Summary ---
Author Organization [employer] Address [address] [facility] 7t [place] [address] Care Team Providers Care Emergency Medical Service Manager Name Role Phone Jenny Vázquez MD Primary Care Provider [phone] Encounter Details Date Type Department Care Team (Late st Contact Info) Description 12/30/2023 Orders Only [facility] [address] [place] [address] Jenny Vázquez MD [address] [place] [address] Primary hypertension (Primary Dx); Dyslipidemia; Fibromyalgia Social [...] Description 07/24/2025 12:45 PM EDT Office Visit [facility] [address] [place] [address] Marialuisa Parsons documented as of this encounter Visit Diagnoses Diagnosis Primary hypertension- Primary Unspecified essential hypertension Dyslipidemia Other and unspecified hyperlipidemia Fibromyalgia Unspecified myalgia and myositis documented in this encounter Additional Health Concerns Assessment Noted Time PHQ-9 Depression Total Score: 0 10/22/19 23 1:17 PM EDT documented as of this encounter Care Teams Emergency Medical Service Manager Relationship Specialty Start Date End Date Jenny Vázquez MD [address] [place] [address] PCP - General Family Medicine 04/13/18 documented as of this encounter
--- OUTSIDE RECORDS SUMMARY | 2025-03-30 17:39 | XMS_ITS | Encounter Summary ---
Author Organization [employer] Address [address] [facility] 7t [place] [address] Care Team Providers Care Skewer Up Name Role Phone Jenny Vázquez MD Primary Care Provider [phone] Reason for Visit * Reason Comments Med Refill Encounter Details Date Type Department Care Team (Late st Contact Info) Description 04/17/2023 Refill [facility] [address] [place] [address] Jenny Vázquez MD [address] [place] [address] Fibromyalgia Social History Tobacco Use Types Packs/Day [...] Description 07/24/2025 12:45 PM EDT Office Visit [facility] [address] [place] [address] Marialuisa Parsons documented as of this encounter Visit Diagnoses Diagnosis Fibromyalgia Unspecified myalgia and myositis documented in this encounter Additional Health Concerns Assessment Noted Time PHQ-9 Depression Total Score: 0 10/22/19 23 1:17 PM EDT documented as of this encounter Care Teams Skewer Up Relationship Specialty Start Date End Date Jenny Vázquez MD [address] [place] [address] PCP - General Family Medicine 04/13/18 documented as of this encounter
--- OUTSIDE RECORDS SUMMARY | 2025-03-30 17:39 | XMS_ITS | Clinical Summary ---
Author Organization [employer] Address [address] [place] [address] 7t [place] [address] Care Team Providers Care Microbiology Quality Control Technician Name Role Phone Jenny Vázquez MD Primary Care Provider Allergies Active Allergy Reactions Criticality Noted Date Comments Martir Inhibitors 04/21/2022 Ascorbate 02/05/2024 Latex 02/05/2024 Lisinopril Hives 02/18/2023 New Skin 02/05/2024 Peanut Oil 04/21/2022 Peanut-Containing Drug Products 01/12 Pineapple 02/05/2024 [place] Extract Other 02/08/2024 Zoster Vaccine Live [...] AFFECTED AREA(S) TWICE DAILY 453 g 3 03/30/2025 2:36 PM EST 5 Active Alcohol Swabs (Alcohol Prep) pads [...] 11:00 AM EST): - previously seen by [facility] Ortho. Surgical excisional biopsy was recommended, but postponed due to her cardiac condition. Recently seen by [facility] orthopedist again for possible surgical excisional biopsy. Due to her high risk factors, they agreed to manage it conservatively at this time Assessment & Plan (10/24/2024 5:04 AM EDT): - previously seen by [facility] Ortho. Surgical excisional biopsy was recommended, but [...] baking, cleaning her home and listening to yarsani music. Araseli reports taking medication prescribed by her PCP and having improvements from them. clinician will provide additional support if needed during next medical appointment. Ischemic heart disease 08/05/2022 Assessment & Plan (02/14/2025 9:36 AM EST): -Duplicating Machine Mechanic: [facility], Dr. Cesar and Janna Cruz NP, last [...] discontinued when she was last seen by deckhand crab boat in Apr 2024. -Continue Metoprolol, ASA and Atorvastatin -Continue isosorbide for antianginal effect. Recently increased dose to 90 mg daily. -Cont working on lifestyle modifications. Assessment & Plan (10/24/2024 5:09 AM EDT): -Duplicating Machine Mechanic: Dr. Arsenio TAPIA and Janna Cruz NP, [...] discontinued when she was last seen by deckhand crab boat in Apr 2024. -Continue Metoprolol, ASA and Atorvastatin -Continue isosorbide for antianginal effect. Recently increased dose to 90 mg daily. -Cont working on lifestyle modifications. Assessment & Plan (06/06/2024 3:21 PM EST): -Duplicating Machine Mechanic: Dr. Arsenio TAPIA and Janna Cruz NP, [...] discontinued when she was last seen by deckhand crab boat in Apr 2024. -Continue Metoprolol, ASA and Atorvastatin -Continue isosorbide -Cont working on lifestyle modifications. Assessment & Plan (02/15/2024 1:39 PM EST): -Duplicating Machine Mechanic: Dr. Arsenio TAPIA, last seen on 01/08/23 [...] Assessment & Plan (01/28/2023 8:56 PM EDT): -Duplicating Machine Mechanic: Dr. Arsenio TAPIA, last seen on 01/08/23 [...] Assessment & Plan (10/28/2022 7:06 AM EDT): -Duplicating Machine Mechanic: Dr. Arsenio TAPIA, last seen on 08/05/22; [...] Assessment & Plan (08/15/2022 6:38 AM EDT): -Duplicating Machine Mechanic: [facility], Dr. Cesar, appt today - NSTEMI in [...] on 10/20/22. Being scheduled for Pre-Op with Duplicating Machine Mechanic. Pt needs Cardiac Clearance Before Hemorrhoidectomy. - [...] (10/24/2024 5:10 AM EDT): - evaluated by crane operator - wears hearing aids; needs a new referral Assessment & Plan (02/10/2024 8:13 AM EDT): - evaluated by crane operator - wears hearing aids Assessment & Plan (08/15/2022 6:43 AM EDT): - evaluated by crane operator - wears hearing aids Type 2 diabetes [...] May 2024, plantar fasciitis, ingrown toenail, sees [employer] faculty. -Last microalbumin test: 06/07/24 UACR TNP -Last [...] May 2024, plantar fasciitis, ingrown toenail, sees [employer] faculty. -Last microalbumin test: 06/07/24 UACR TNP -Last [...] May 2024, plantar fasciitis, ingrown toenail, sees [employer] faculty. -Last microalbumin test: 11/05/22 UACR 4.9; -Last [...] exam: 08/05/22, plantar fasciitis, ingrown toenail, sees [employer] faculty. -Last microalbumin test: 11/05/22 UACR 4.9; -Last [...] exam: 08/05/22, plantar fasciitis, ingrown toenail, sees [employer] faculty. -Last microalbumin test: 11/05/22 UACR 4.9; -Last [...] exam: 08/05/22, plantar fasciitis, ingrown toenail, sees [employer] faculty. -Last microalbumin test: 10/25/18 UACR no microalbuminuria [...] exam: 08/05/22, plantar fasciitis, ingrown toenail, sees [employer] faculty. -Last microalbumin test: 10/25/18 UACR no microalbuminuria [...] - Metoprolol succinate dose was increased by [facility] deckhand crab boat ssince January 2025 Assessment & Plan (10/13/2024 10:49 [...] Plan (08/05/2022 9:28 AM EDT): Seen by deckhand crab boat, Dr. Cesar, on 01/09/22 for CAD and PVC f/u: -TTE was ordered by Duplicating Machine Mechanic -most recent Holter monitor in Dec 2019 PVC 3%. -09/20/21 Echo LVEF 45-50%, p/s Stent -Continue metoprolol succinate 50 mg TWO tablets daily -Continue BB -Previously flecainide 100 mg BID. d/c d/t hospitalization Fibromyalgia 07/20/2014 Assessment & Plan (02/19/2025 11:00 AM EST): Followed by Investigation Specialist -Continue pregabalin, use judiciously -Continue staying active Assessment & Plan (06/06/2024 3:28 PM EST): Followed by Investigation Specialist -Continue Lyrica, use judiciously -Continue staying active Assessment & Plan (02/10/2024 8:12 AM EDT): Followed by Investigation Specialist -Continue Lyrica, use judiciously -Continue staying active Assessment & Plan (08/05/2022 9:27 AM EDT): Followed by Investigation Specialist -Continue Lyrica, use judiciously -Continue staying active Allergic rhinitis 03/24/2013 Assessment & Plan (02/15/2024 1:48 PM EST): - continue loratadine and montelukast - following with revenue cycle specialist Assessment & Plan (10/21/2022 2:19 PM EDT): - continue loratadine and montelukast - will check status of referral Assessment & Plan (08/15/2022 6:43 AM EDT): - continue loratadine and montelukast - refer to a new revenue cycle specialist Depression 03/24/2013 Assessment & Plan (02/19/2025 10:58 [...] & Plan (02/19/2025 11:03 AM EST): - counselor nurses' association changed mask for nasal pillow per patient's request in May 2023 - recommended CPAP use Assessment & Plan (10/13/2024 10:51 PM EDT): - counselor nurses' association changed mask for nasal pillow per patient's request in May 2023 - recommended CPAP use Assessment & Plan (06/06/2024 3:27 PM EST): - counselor nurses' association changed mask for nasal pillow per patient's request in May 2023 - recommended CPAP use Assessment & Plan (02/14/2024 5:29 PM EST): - counselor nurses' association changed mask for nasal pillow per patient's request in May 2023 - recommended CPAP use Assessment & Plan (01/28/2023 8:51 PM EDT): - continue CPAP Asthma 12/10/2012 Assessment & Plan (02/19/2025 11:03 AM EST): - Previously followed by Allergy / transition specialist : Dr. Ahn - Currently followed by Dr. Webber, [facility] pulmology, last seen in May 2023 - [...] EDT): - Previously followed by Allergy / transition specialist : Dr. Ahn - Seen by new counselor nurses' association at [facility] in May 2023 - No history of intubation, Hx pneumonia and influenza in Apr 2018 - Severe exacerbation 1 or 2 times / year - Last exacerbation in Mar 2024, Rx prednisone, doxycycline. - Continue Symbicort and Singulair as maintenance. - Continue albuterol HFA / neb prn as rescue. Assessment & Plan (06/06/2024 6:25 AM EST): - Previously followed by Allergy / transition specialist : Dr. Ahn - Seen by new counselor nurses' association at [facility] in May 2023 - No history of [...] EST): - Previously followed by Allergy / transition specialist : Dr. Ahn - Seen by new counselor nurses' association at [facility] in May 2023 - No history of intubation, Hx pneumonia and influenza in Apr 2018 - Severe exacerbation 1 or 2 times / year - Continue Symbicort and Singulair as maintenance. - Continue albuterol HFA / neb prn as rescue. Assessment & Plan (01/28/2023 8:51 PM EDT): - Previously followed by Allergy / transition specialist : Dr. Ahn - Seen by new counselor nurses' association at [facility] in August 2022 - No history of intubation, Hx pneumonia and influenza in Apr 2018 - Severe exacerbation 1 or 2 times / year - Continue Symbicort and Singulair as maintenance. - Continue albuterol HFA / neb prn as rescue. Assessment & Plan (10/28/2022 6:57 AM EDT): - Previously followed by Allergy / transition specialist : Dr. Ahn - Seen by new counselor nurses' association at [facility] in August 2022 - No history of intubation, Hx pneumonia and influenza in Apr 2018 - Severe exacerbation 1 or 2 times / year - Continue Symbicort and Singulair as maintenance. - Continue albuterol HFA / neb prn as rescue. Assessment & Plan (08/15/2022 6:29 AM EDT): - Allergy / transition specialist : Dr. Ahn, needs a new allergy technical specialist cytology - No history of intubation, Hx pneumonia [...] she would like me to call her deckhand crab boat and try to get a sooner appointment and she said shes fine and can wait. I asked her if she felt safe and she said she did. We discussed her nitroglycerin and when to use it and ED precautions. Differentials: stable vs unstable angina, left sided axillary pain, frequent or high PVC burden. Encounters Date Type Department Care Team Description 03/22/2025 Orders Only [facility] [address] [place] [id number] ProviderMan MD 03/15/2025 Orders Only [facility] [address] [place] [address] Jenny Vázquez MD 02/28/2025 Orders Only GENERIC EXTERNAL DATA DEPARTMENT Provider, Generic External Data 02/22/2025 Telephone [facility] [address] [place] [address] Nathanael Crespo DDS 02/20/[address] [address] Jenny Vázquez MD Care Coordination; Medication Question 02/15/2025 Travel 02/14/2025 1:15 PM EST Office Visit [address] [address] Jenny Vázquez MD Primary hypertension (Primary Dx); [...] trigger 02/14/2025 Travel 02/13/2025 Telephone [facility] [address] [place] [address] Vivi Alvarez MA 02/07/2025 Travel 02/01/2025 Refill [facility] [address] [place] [address] Jenny Vázquez MD Fibromyalgia 2025 12:45 PM EDT Office Visit [facility] [address] [place] [address] Marialuisa Parsons Open fracture of tooth, initial [...] 12:45 PM EDT Office Visit [facility] [address] [place], [place] [phone] Marialuisa Parsons Health Maintenance Due Date Last Done Comments CT Colonography 1955 FIT DNA/Cologuard 1955 FIT 1955 FOBT 1955 Sigmoidoscopy 1955 Hepatitis C Screening 01/18/1974 RSV Patients and Patients Aged 60 years or older (1 - Risk 50-74 years 1-dose series) 01/18/2006 Zoster Vaccines (2 of 3) 01/13/2017 11/18/2016 Depression Monitoring 10/31/2024 05/03/2024, 025 COVID-19 Vaccine (4 - season) 2024 11/18/2021, 08/04/2020, 07/11/2020 SDOH Screening 02/07/2025 02/08/2024 Diabetes: Urine Protein Screening 06/07/2025 03/30/2025, 06/07/2024, 11/05/2022, Additional history exists Dental Oral Exam 07/21/2025 2025, 11/2022, 08/20/2020, Additional history exists Dental Prophylaxis 07/21/2025 2025, 0 04/29/2016, 10/23/2015, Additional history exists Diabetes: Hemoglobin A1C 08/14/2025 025, 10/11/2024, 06/06/2024, Additional history exists Diabetes: Foot Exam 10/11/2025 10/11/2024, 10/11/2024, 10/11/2024, Additional history exists Dental X-Ray: Bitewings 01/20/2026 01/20/20, 02/18/2023, 08/20/2020, Additional history exists Alcohol/Substance Use Screening 02/14/2026 02/14/2025 Tobacco Screening 02/19/2026 02/19/2025 Lipid Panel 03/30/2026 03/30/2025, 05/15, 11/05/2022, Additional history exists Colonoscopy 12/09/2026 12/09/2016 Colorectal [...] Procedure Name Priority Date/Time Associated Diagnosis Comments COMPREHENSIVE METABOLIC PANEL Routine 03/30/2025 2:18 PM EST Primary hypertension ALBUMIN, RANDOM URINE W/CREATININE Routine 03/30/2025 2:18 PM EST Primary hypertension LIPID PANEL WITH REFLEX TO DIRECT LDL Routine 03/30/2025 2:18 PM EST Dyslipidemia BI MAMMOGRAM SCREENING TOMOSYNTHESIS BILATERAL Routine 03/07/2025 [...] without long-term current use of insulin (HCC) CASE PRESENTATION, DETAILED AND EXTENSIVE TREATMENT PLANNING Routine 2025 12:45 PM EDT ORAL HYGIENE INSTRUCTIONS Routine 2025 12:45 PM EDT Dental plaque Dental calculus PROPHYLAXIS - ADULT Routine 2025 1 2:45 PM EDT Dental plaque Dental calculus INTRAORAL - COMPLETE SERIES OF RADIOGRAPHIC IMAGES Routine 2025 12:45 PM EDT PERIODIC ORAL EVALUATION - ESTABLISHED PATIENT Routine 2025 12:45 PM EDT HM COLONOSCOPY Routine 12/09/2016 from Last 3 Months or Most Recently Relevant to Health Maintenance Results * Albumin, Random Urine W/Creatinine (03/30/2025 2:18 PM EST) Creatinine, Urine 95.95 mg/dL [facility] Microalbumin Urine <5.0 mg/L [facility] Microalbum Creatinine Ratio Ur TNP <30 ug/mg cr [facility] Comment:Unable to calculate albumin/creatinine ratio due to lowmicroalbumin or creatinine result. Urine 03/30/2025 2:18 PM EST 03/30/2025 4:02 PM EST Jenny Vázquez MD LAB URINE ORDERABLES Final Resul t [facility] [address] [place] [phone] * BI Mammogram Screening Tomosynthesis Bilateral (03/07/2025 2:19 PM EST) Anatomical Region Laterality Modality Breast Bilateral Mammography 03/07/2025 2:19 PM EST Narrative 03/08/2025 5:59 PM EST [facility] [address] [place] [address] Mammography Report Signed Patient: Araseli Leary MR#: [id number] : 1955 Acct:[id number] Age/Sex: 70 / F ADM Date: 03/07/25 Loc: [facility] Attending Dr: Jenny Vázquez MD Ordering Physician: Jenny Vázquez MD Results: 1Negative Date of Service: 03/07/25 Follow Up: 1 Year From Orig inal Mammogram Procedure(s): MM tomosynthesis screening BI Accession Number(s): [id number] cc: Jenny Vázquez MD Reason For Exam: [...] by: Keke Desir MD 03/08/2025 05:56 PM [facility] Dictated By: Keke Desir MD Signed By: <Electronically signed by Keke Desir MD in OV> 03/08/25 1756 DD/ 1419 TD/TT: 03/07/25 1428 Nonfarm Animal Caretaker: Procedure Note Donotuseinterpreter, Image - 03/08/2025 [facility] [address] [place] [address] Mammography Report Signed Patient: Jose M Leary#: [id number] : 1955cct:[id number] Age/Sex: 70 / FADM Date: 03/07/25 Loc: [facility] Attending Dr: Jenny Vázquez MD Ordering Physician: Jenny Vázquez MDResults: 1Negative Date of Service: 03/07/25Follow Up: 1 Year From Orig inal Mammogram Procedure(s): MM tomosynthesis screening BI Accession Number(s): [id number] cc: Jenny Vázquez MD Reason For Exam: [...] 03/08/25 1756 DD/ 1419 TD/TT: 03/07/25 1428 Nonfarm Animal Caretaker: us Jenny Vázquez MD IMG BI PROCEDURES Final Result * Glucose, Whole Blood (02/28/2025 9:26 AM EST) Glucose, Whole Blood 107 60 - 115 mg/dL [facility] Comment:METER #: [id number] 02/28/2025 9:26 AM EST 02/28/2025 9:29 AM EST us Generic External Data Provider LAB BLOOD ORDERAB LES Final Result [facility] [address] [place] [address] [phone] * Diabetes Eye Exam (02/27/2025) Man Segura MD HEALTH MAINTENANCE Final Result * (ABNORMAL) POCT Hgb A1c (02/14/2025 1:30 PM EST) Hemoglobin A1C 6.0(A) 4.0 - 5.7 % QC Media Lot # [id number] Lot# Expiration Date 5,189 Blood 02/14/2025 1:30 PM EST Jenny Vázquez MD POINT OF CARE TEST ENTER/EDIT OR DERABLES Final Result * POCT Glucose (02/14/2025 1:28 PM EST) Glucose Blood, POC 156 60 - 200 mg/dL QC Media Lot # [id number] Lot# Expiration Date 3, Blood Capillary blood specimen / Unknown 02/14/2025 1:28 PM EST Jenny Vázquez MD POINT OF CARE TEST ENTER/EDIT OR DERABLES Edited Result - Final * Colonoscopy (12/09/2016) Colonoscopy Normal Normal 12/09/2016 [...] Patient has chronic kidney disease 03/15/[address] [place] [address] [employer] MED[employer]ARE REPLACEMENT [address] [place] [address] DENTAL - [employer] DENTAL PPO 1 [place] [address] 1 [place] [address] Care Teams Microbiology Quality Control Technician Relationship Specialty Start Date End Date Jenny Vázquez MD [address] [place] [phone] PCP - General Family Medicine 04/13/18
--- OUTSIDE RECORDS SUMMARY | 2025-03-30 17:39 | XMS_ITS | Encounter Summary ---
Author Organization [employer] Address [address] [facility] 7t [place] [address] Care Team Providers Care Python Consultant Name Role Phone Jenny Vázquez MD Primary Care Provider [phone] Encounter Details Date Type Department Care Team (Late st Contact Info) Description 03/09/2023 Abstract [facility] [address] [place] [address] Nathanael Crespo DDS [address] [place] [address] Social History Tobacco Use Types Packs/Day Years [...] 12:45 PM EDT Office Visit [facility] [address] [place] [address] Marialuisa Parsons documented as of this encounter Visit Diagnoses Not on filedocumented in this encounter Additional Health Concerns Assessment Noted Time PHQ-9 Depression Total Score: 0 10/22/19 23 1:17 PM EDT documented as of this encounter Care Teams Python Consultant Relationship Specialty Start Date End Date Jenny Vázquez MD [address] [place] [address] PCP - General Family Medicine 04/13/18 documented as of this encounter
--- OUTSIDE RECORDS SUMMARY | 2025-03-30 17:39 | XMS_ITS | Encounter Summary ---
Author Organization [employer] Address [address] [facility] 7t [place] [address] Care Team Providers Care Urogynecology Physician Name Role Phone Jenny Vázquez MD Primary Care Provider [phone] Encounter Details Date Type Department Care Team (Late st Contact Info) Description 03/15/2025 Orders Only [facility] [address] [place] [address] Jenny Vázquez MD [address] [place] [address] Social History Tobacco Use Types Packs/Day Years [...] [facility] [address] [place] [address] Marialuisa Parsons documented as of this encounter [...] Patient has chronic kidney disease No Marianela Lanfgord RN Patient has chronic kidney disease Care [...] documented as of this encounter Care Teams Urogynecology Physician Relationship Specialty Start Date End Date Jenny Vázquez MD [address] [place] [address] PCP - General Family Medicine 04/13/18 documented as of this encounter
== END 2025-03-30 14:09 | disposition home or self-care (01) ==
LOC: HO.HWSM 13:33
PROVIDERS: PCP Family Medicine; Visit Provider Advanced Practice Midwife
DX: Z01.419 Encounter for gynecological examination (general) (routine) without abnormal findings (principal); Z12.39 Encounter for other screening for malignant neoplasm of breast; M85.80 Other specified disorders of bone density and structure, unspecified site; Z78.0 Asymptomatic menopausal state
CPT/HCPCS: 99397; 99459

== ENCOUNTER 2025-03-30 13:33 | Outpatient (REF) | payer MEDICARE, SELFPAY ==
[2025-03-30 16:41] LABS: Alanine Aminotransferase 38 U/L (0-31); Albumin Level 4.2 g/dL (3.5-5.0); Alkaline Phosphatase 122 U/L (39-117); Anion Gap 9 (12-20); Aspartate Amino Transferase 27 U/L (5-31); Blood Urea Nitrogen 13 mg/dL (9-16); Calcium 9.2 mg/dL (8.4-10.2); Carbon Dioxide 28 mmol/L (22-29); Chloride 108 mmol/L (96-108); Cholesterol 120 mg/dL (<200); Estimated Glomerular Filt Rate 57; HDL Cholesterol 45 mg/dL (>40); Potassium 4.0 mmol/L (3.3-5.1); Sodium 141 mmol/L (135-145); Total Protein 6.6 g/dL (6.5-8.0); Triglycerides 142 mg/dL (<150)
[2025-03-30 19:15] LABS: Reflex LDLD? No
== END 2025-03-30 13:34 ==
LOC: HO.HHCL 13:33
PROVIDERS: PCP Family Medicine; Visit Provider Advanced Practice Midwife
DX: Z01.419 Encounter for gynecological examination (general) (routine) without abnormal findings (principal); M85.80 Other specified disorders of bone density and structure, unspecified site; E78.5 Hyperlipidemia, unspecified; I10 Essential (primary) hypertension; Z12.39 Encounter for other screening for malignant neoplasm of breast; Z78.0 Asymptomatic menopausal state; Z71.82 Exercise counseling
CPT/HCPCS: 36415; 80053; 80061; 82306; 82570